=== PATIENT | male | born 1960 | race Caucasian/White ===

== ENCOUNTER 2018-07-29 20:36 | Emergency (ER) | payer OTHER ==
[2018-07-29] MEDS ORDERED: MORPHINE 4 MG/ML SYR ONE ×2 (21:09→22:18)
[2018-07-29] MEDS ORDERED: ONDANSETRON 4 MG/2 ML VIAL ONE (21:09)
[2018-07-29 21:23] LABS: Absolute Lymphocytes (CBC) 0.4 K/uL (0.7-4.9); Absolute Monocytes 0.6 K/uL (0.1-1.3); Absolute Neutrophil 20.4 K/uL (1.8-8.0); Basophils % 0.3 % (0-1.3); MPV 9.3 fL (7.6-11.3); Monocytes % 2.7 % (3.3-12.3); RBC Red Blood Cell Count 5.96 M/uL (4.33-5.43)
[2018-07-29 21:25] LABS: Protime INR 1.58
[2018-07-29 21:37] LABS: Albumin 2.3 g/dL (3.4-5.0); Bilirubin Direct 2.2 mg/dL (0-0.2); Bilirubin Total 3.4 mg/dL (0.2-1.0); Potassium 3.7 mmol/L (3.5-5.1); Protein, Total 7.4 g/dL (6.4-8.2)
[2018-07-29 21:58] LABS: Blood Morphology Comment NOT SEEN (NOT SEEN); Platelet Estimate ADEQ
--- NOTE | 2018-07-29 22:43 | EDPHYS ---
Physician Documentation [facility] Name: Onel Mancuso Age: 58 yrs Sex: Male : 1960 Arrival Date: 07/29/2018 Time: 20:37 Bed 6 Private MD: ED Physician Gino Scott HPI: 07/29 21:15 This 58 yrs old Male presents to ER via EMS with complaints of Abdominal pm1 Distention, Abdominal Pain. 21:15 The patient presents with abdominal pain that is diffuse, abdominal distention that is pm1 diffuse. Onset: The symptoms/episode began/occurred 1.5 week(s) ago. The symptoms do not radiate. Associated signs and symptoms: Pertinent negatives: nausea, vomiting, and diarrhea, chest pain, dysuria, fever, shortness of breath. The symptoms are described as achy, constant. Modifying factors: The symptoms are alleviated by nothing, the symptoms are aggravated by nothing. Severity of pain: in the emergency department the pain is actually worse. 21:15 The patient has been recently seen by a physician: with similar presenting complaints, pm1 and apparently given a diagnosis of Liver cirrhosis for the the first time, at [facility] ER with CT scan. Historical: - Allergies: 20:42 No Known Allergies; tl2 - Home Meds: 20:42 Tramadol Oral [Active]; tl2 - PMHx: 20:42 Cirrhosis; tl2 - PSHx: 20:42 None; tl2 - Immunization history:: Adult Immunizations up to date. - Social history:: Smoking status: Patient uses tobacco products, denies chronic smoking, but will smoke occasionally. - Ebola Screening: : No symptoms or risks identified at this time. ROS: 21:15 Constitutional: Negative for fever, chills, and weight loss, Eyes: Negative for injury, pm1 pain, redness, and discharge, ENT: Negative for injury, pain, and discharge, Neck: Negative for injury, pain, and swelling, Cardiovascular: Negative for chest pain, palpitations, and edema, Respiratory: Negative for shortness of breath, cough, wheezing, and pleuritic chest pain. 21:15 Back: Negative for injury and pain, : Negative for injury, bleeding, discharge, and swelling, MS/Extremity: Negative for injury and deformity, Skin: Negative for injury, rash, and discoloration, Neuro: Negative for headache, weakness, numbness, tingling, and seizure. 21:15 Abdomen/GI: Positive for abdominal pain, of the abdomen diffusely, Negative for nausea, vomiting, and diarrhea. Exam: 21:15 Constitutional: This is a well developed, well nourished patient who is awake, alert, pm1 and in no acute distress. Head/Face: Normocephalic, atraumatic. Eyes: Pupils equal round and reactive to light, extra-ocular motions intact. Lids and lashes normal. Conjunctiva and sclera are non-icteric and not injected. Cornea within normal limits. Periorbital areas with no swelling, redness, or edema. ENT: Nares patent. No nasal discharge, no septal abnormalities noted. Tympanic membranes are normal and external auditory canals are clear. Oropharynx with no redness, swelling, or masses, exudates, or evidence of obstruction, uvula midline. Mucous membranes moist. Neck: Trachea midline, no thyromegaly or masses palpated, and no cervical lymphadenopathy. Supple, full range of motion without nuchal rigidity, or vertebral point tenderness. No Meningismus. Chest/axilla: Normal chest wall appearance and motion. Nontender with no deformity. No lesions are appreciated. Cardiovascular: Regular rate and rhythm with a normal S1 and S2. No gallops, murmurs, or rubs. Normal PMI, no JVD. No pulse deficits. Respiratory: Lungs have equal breath sounds bilaterally, clear to auscultation and percussion. No rales, rhonchi or wheezes noted. No increased work of breathing, no retractions or nasal flaring. 21:15 Back: No spinal tenderness. No costovertebral tenderness. Full range of motion. Skin: Warm, dry with normal turgor. Normal color with no rashes, no lesions, and no evidence of cellulitis. MS/ Extremity: Pulses equal, no cyanosis. Neurovascular intact. Full, normal range of motion. 21:15 Skin: Warm, dry with normal turgor. Normal color with no rashes, no lesions, and no evidence of cellulitis. Bruise present to right bicep 21:15 Abdomen/GI: Inspection: distension, in the abdomen diffusely, Palpation: soft, in all quadrants, mild abdominal tenderness, in the abdomen diffusely. 21:15 Neuro: Orientation: is normal, Mentation: is normal, Motor: moves all fours. Vital Signs: 20:42 BP 161 / 129; Pulse 117; Resp 26; Temp 97.7(O); Pulse Ox 94% on R/A; Weight 108.86 kg; tl2 Height 6 ft. 0 in. (182.88 cm); Pain 9/10; 22:00 BP 129 / 92; Pulse 109; Resp 20; Pulse Ox 93% on R/A; aj1 22:06 BP 142 / 106; Pulse 112; Resp 24; Pulse Ox 95% on R/A; mt 23:30 BP 164 / 97; Pulse 109; Resp 20; Pulse Ox 92% on R/A; tl2 07/30 01:15 BP 169 / 99; Pulse 102; Resp 20; Pulse Ox 91% on R/A; tl2 07/29 20:42 Body Mass Index 32.55 (108.86 kg, 182.88 cm) tl2 MDM: 07/29 20:43 Patient medically screened. pm1 22:30 Counseling: I had a detailed discussion with the patient and/or guardian regarding: the pm1 historical points, exam findings, and any diagnostic results supporting the discharge/admit diagnosis, lab results, radiology results, the need for further work-up and treatment in the hospital. 22:36 Physician consultation: Luis Armando Erazo MD was called at 22:37, was contacted at 22:37, pm1 regarding consult, patient's condition, after a discussion of the case, a recommendation for transfer for higher level of care is made, Request transfer due to multiple comorbidity and illnesses present, lack of ICU bed, liver specialist to address liver mass. 22:54 Physician consultation: MD Surgeon Herrera was contacted at 22:50, regarding consult, pm1 patient's condition, and will see patient. 23:04 Physician consultation: MD Strickland was contacted at 23:05, regarding regarding transfer, pm1 patient's condition, and will see patient Request additional 1 liter NS. 23:23 Data reviewed: vital signs. Data interpreted: Pulse oximetry: on room air is 95 %. pm1 Interpretation: normal. 07/29 20:45 Order name: Basic Metabolic Panel pm1 07/29 20:45 Order name: CBC with Diff pm1 07/29 20:45 Order name: Creatinine for Radiology pm1 07/29 20:45 Order name: Hepatic Function pm1 07/29 20:45 Order name: Lipase pm07/29 20:45 Order name: ETOH Level pm07/29 20:47 Order name: PT-INR pm07/29 21:26 Order name: CBC with Automated Diff; Complete Time: 22:06 EDMS 07/29 21:26 Order name: Protime (+INR); Complete Time: 21:29 EDMS 07/29 21:36 Order name: Creatinine (Radiology Only); Complete Time: 21:38 EDMS 07/29 21:38 Order name: Basic Metabolic Panel; Complete Time: 21:39 EDMS 07/29 21:38 Order name: Liver (Hepatic) Function; Complete Time: 21:39 EDMS 07/29 21:38 Order name: Lipase; Complete Time: 21:39 EDMS 07/29 21:45 Order name: Alcohol Serum/Plasma; Complete Time: 21:50 EDMS 07/29 20:47 Order name: CT Abd/Pelvis - W/Contrast: IV contrast only pm07/29 21:59 Order name: Manual Differential; Complete Time: 22:06 EDMS 07/29 22:07 Order name: Blood Culture Adult (2) pm1 07/29 22:20 Order name: Type And Screen pm07/29 22:21 Order name: EKG; Complete Time: 22:21 pm07/29 23:13 Order name: Procalcitonin pm07/29 23:53 Order name: Procalcitonin EDMS 07/30 00:14 Order name: ABO/RH no charge EDMS 07/30 00:18 Order name: Type and Screen EDIL 07/29 20:45 Order name: IV Saline Lock; Complete Time: 20:46 pm1 07/29 20:45 Order name: Labs collected and sent; Complete Time: 20:46 pm07/29 22:21 Order name: EKG - Nurse/Tech; Complete Time: 22:34 pm1 Administered Medications: 21:06 Drug: morphine 4 mg Route: IVP; Site: right upper arm; aj1 22:00 Follow up: Response: Pain is unchanged, physician notified aj1 21:06 Drug: Zofran 4 mg Route: IVP; Site: right upper arm; aj1 22:00 Follow up: Response: No adverse reaction aj1 22:10 Drug: morphine 4 mg Route: IVP; Site: right upper arm; aj1 22:59 Follow up: Response: No adverse reaction aj1 23:35 Drug: Zosyn 3.375 grams Route: IVPB; Infused Over: 60 mins; Site: right upper arm; tl2 07/30 00:30 Follow up: IV Status: Completed infusion tl2 07/29 23:36 Drug: NS 0.9% 1000 ml Route: IV; Rate: 1000 ml; Site: left upper arm; tl2 07/30 01:00 Follow up: IV Status: Completed infusion; IV Intake: 1000ml tl2 07/29 23:36 Drug: NS 0.9% 1000 ml Route: IV; Rate: 1000 ml; Site: left upper arm; tl2 07/30 01:00 Follow up: IV Status: Completed infusion; IV Intake: 1000ml tl2 :20 Drug: NS 0.9% 1000 ml Route: IV; Rate: 125 ml/hr; Site: right upper arm; tl2 02:20 Follow up: IV Status: Infusion continued upon transfer tl2 Disposition: 03:37 Co-signature as Attending Physician, Gino Scott MD. Disposition: 07/29/18 22:[address] [facility]. Diagnosis are Small bowel perforation, Pneumonia, unspecified organism, Liver mass. - Reason for transfer: Higher level of care. - Accepting physician is [facility]. - Condition is Stable. - Problem is new. - Symptoms have improved. Signatures: Dispatcher [employer] Emma Warren RN RN aj1 Federico Salmeron NP LACE SEWER pm1 Lexie Scott RN RN tl2 Gino Scott MD MD Corrections: (The following items were deleted from the chart) 02:29 07/29 22:42 07/29/2018 22:[address] [facility]. tl2 Diagnosis is Small bowel perforationPneumonia, unspecified organism; Liver mass. Reason for transfer: Higher level of care. Accepting physician is [facility]. Condition is Stable. Problem is new. Symptoms have improved. pm1
--- NOTE | 2018-07-29 22:43 | ER ---
Nurse's Notes [facility] Name: Onel Mancuso Age: 58 yrs Sex: Male : 1960 Arrival Date: 07/29/2018 Time: 20:37 Bed 6 Private MD: Diagnosis: Pneumonia, unspecified organism;Small bowel perforation;Liver mass Presentation: 07/29 20:37 Presenting complaint: Patient states: Newly diagnosed with liver cirrhosis last week, tl2 pt c/o severe abdominal pain and distention for 1.5 weeks. Pt appears jaundiced. Pt is currently trying to make an appointment to get to the [place]. Transition of care: patient was not received from another setting of care. Onset of symptoms was July 22, 2018. Risk Assessment: Do you want to hurt yourself or someone else? Patient reports no desire to harm self or others. Initial Sepsis Screen: Does the patient meet any 2 criteria? HR > 90 bpm. Does the patient have a suspected source of infection? No. Patient's initial sepsis screen is negative. Care prior to arrival: Medication(s) given: 5 mg Morphine IM. 20:37 Method Of Arrival: EMS: [facility] tl2 20:37 Acuity: DANIKA 2 aj1 Triage Assessment: 20:42 General: Appears in no apparent distress. uncomfortable, Behavior is calm, cooperative, tl2 appropriate for age. Pain: Complains of pain in abdomen. Neuro: Level of Consciousness is awake, alert, obeys commands, Oriented to person, place, time, situation. Cardiovascular: Denies chest pain. Respiratory: Airway is patent Respiratory effort is even, unlabored, Respiratory pattern is regular, symmetrical. GI: Abdomen is distended, noted to have ascites. Derm: Skin is jaundiced. Historical: - Allergies: 20:42 No Known Allergies; tl2 - Home Meds: 20:42 Tramadol Oral [Active]; tl2 - PMHx: 20:42 Cirrhosis; tl2 - PSHx: 20:42 None; tl2 - Immunization history:: Adult Immunizations up to date. - Social history:: Smoking status: Patient uses tobacco products, denies chronic smoking, but will smoke occasionally. - Ebola Screening: : No symptoms or risks identified at this time. Screenin:44 Abuse screen: Denies threats or abuse. Nutritional screening: No deficits noted. tl2 Tuberculosis screening: No symptoms or risk factors identified. Fall Risk IV access (20 points). Assessment: 20:45 General: Appears in no apparent distress. uncomfortable, Behavior is cooperative, aj1 restless. Pain: Complains of pain in abdomen Pain does not radiate. Pain currently is 10 out of 10 on a pain scale. Neuro: Level of Consciousness is awake, alert, obeys commands, Oriented to person, place, time, situation. Cardiovascular: Patient's skin is warm and dry. Rhythm is sinus tachycardia. Respiratory: Airway is patent Respiratory effort is even, unlabored, Respiratory pattern is regular, symmetrical. GI: Abdomen is round distended, Bowel sounds present X 4 quads. Abdomen is tender to palpation X 4 quads. Abd is rigid X 4 quads. Reports lower abdominal pain, upper abdominal pain. : No signs and/or symptoms were reported regarding the genitourinary system. EENT: No signs and/or symptoms were reported regarding the EENT system. Derm: Skin is jaundiced. Musculoskeletal: No signs and/or symptoms reported regarding the musculoskeletal system. Circulation, motion, and sensation intact. 21:45 Reassessment: Patient appears in no apparent distress at this time. No changes from aj1 previously documented assessment. Patient and/or family updated on plan of care and expected duration. Pain level reassessed. Patient is alert, oriented x 3, equal unlabored respirations, skin warm/dry/pink. 22:00 Reassessment: Patient states that he is still in a lot of pain. Notified nya Ramírez RAYON CONER. Order received. 22:11 Reassessment: Patient is 91% on room air, patient placed on O2 \T\ 2 L per nc. aj1 22:50 Reassessment: will administer antibiotic after obtaining blood cultures. Will attempt tl2 to place a second IV. 07/30 00:00 Reassessment: Patient appears in no apparent distress at this time. Patient and/or tl2 family updated on plan of care and expected duration. Pain level reassessed. Patient is alert, oriented x 3, equal unlabored respirations, skin warm/dry/pink. 01:00 Reassessment: Patient appears in no apparent distress at this time. Patient and/or tl2 family updated on plan of care and expected duration. Pain level reassessed. Patient is alert, oriented x 3, equal unlabored respirations, skin warm/dry/pink. awaiting transport. 02:27 Reassessment: MD ordered to give pt morphine/zofran before transfer. tl2 Vital Signs: 07/29 20:42 BP 161 / 129; Pulse 117; Resp 26; Temp 97.7(O); Pulse Ox 94% on R/A; Weight 108.86 kg; tl2 Height 6 ft. 0 in. (182.88 cm); Pain 9/10; 22:00 BP 129 / 92; Pulse 109; Resp 20; Pulse Ox 93% on R/A; aj1 22:06 BP 142 / 106; Pulse 112; Resp 24; Pulse Ox 95% on R/A; mt 23:30 BP 164 / 97; Pulse 109; Resp 20; Pulse Ox 92% on R/A; tl2 07/30 01:15 BP 169 / 99; Pulse 102; Resp 20; Pulse Ox 91% on R/A; tl2 07/29 20:42 Body Mass Index 32.55 (108.86 kg, 182.88 cm) tl2 ED Course: 07/29 20:37 Patient arrived in ED. tl2 20:39 Federico Salmeron NP is PHCP. pm1 20:39 Gino Scott MD is Attending Physician. pm1 20:40 Triage completed. tl2 20:42 Arm band placed on right wrist. tl2 20:44 Patient has correct armband on for positive identification. Placed in gown. Bed in low tl2 position. Call light in reach. Side rails up X 1. 20:45 hall monitor on. Pulse ox on. NIBP on. aj1 20:45 No provider procedures requiring assistance completed. aj1 20:49 Radiology exam delayed due to lab results not completed at this time. (BUN/Creatinine). vm2 20:49 Inserted saline lock: 22 gauge in right upper arm, using aseptic technique. Blood tl2 collected. placed by DAVID Carter. 21:05 Emma Petit RN is Primary Nurse. aj1 21:15 Radiology exam delayed due to lab results not completed at this time. (BUN/Creatinine). vm2 21:[address] vm2 21:49 CT completed. Patient tolerated procedure well. Patient moved back from CT. nj 21:58 Notified Nurse Practitioner and/or Physician Operations Engineer of a critical lab result(s), fc band count of 16%. 23:00 Inserted saline lock: 22 gauge in left upper arm, using aseptic technique. lp1 07/30 02:27 Patient transferred, IV remains in place. tl2 Administered Medications: 07/29 21:06 Drug: morphine 4 mg Route: IVP; Site: right upper arm; aj1 22:00 Follow up: Response: Pain is unchanged, physician notified aj1 21:06 Drug: Zofran 4 mg Route: IVP; Site: right upper arm; aj1 22:00 Follow up: Response: No adverse reaction aj1 22:10 Drug: morphine 4 mg Route: IVP; Site: right upper arm; aj1 22:59 Follow up: Response: No adverse reaction aj1 23:35 Drug: Zosyn 3.375 grams Route: IVPB; Infused Over: 60 mins; Site: right upper arm; tl2 07/30 00:30 Follow up: IV Status: Completed infusion tl2 07/29 23:36 Drug: NS 0.9% 1000 ml Route: IV; Rate: 1000 ml; Site: left upper arm; tl2 07/30 01:00 Follow up: IV Status: Completed infusion; IV Intake: 1000ml tl2 07/29 23:36 Drug: NS 0.9% 1000 ml Route: IV; Rate: 1000 ml; Site: left upper arm; tl2 07/30 01:00 Follow up: IV Status: Completed infusion; IV Intake: 1000ml tl2 02:20 Drug: NS 0.9% 1000 ml Route: IV; Rate: 125 ml/hr; Site: right upper arm; tl2 02:20 Follow up: IV Status: Infusion continued upon transfer tl2 Intake: 01:00 IV: 1000ml; Total: 1000ml. tl2 01:00 IV: 1000ml; Total: 2000ml. tl2 Outcome: 07/29 22:42 ER care complete, transfer ordered by . pm1 07/30 02:27 Transferred by ground EMS to [facility], Transfer form completed. tl2 Condition: stable Discharge instructions given to patient, Instructed on the need for transfer. 02:29 Patient left the ED. tl2 Signatures: Emma Petit RN RN [facility] Belkis Tillman RN RN Sugar Alcaraz RN RN lp1 Federico Salmeron, RAYON CONER RAYON CONER pm1 Lexie Scott RN RN tl2 Hao Naik [facility] Evita Harley mt Corrections: (The following items were deleted from the chart) 07/29 22:47 20:37 Acuity: DANIKA 3 tl2 aj1 07/30 01:16 01:15 BP 164 / 97; Pulse 109bpm; Resp 20bpm; Pulse Ox 92% RA; tl2 tl2
[2018-07-29] MEDS ORDERED: PIPER/TAZO/NS 3.375gm 3.375 GM/100 ML BAG ONE (23:13)
[2018-07-29] MEDS ORDERED: NA CHLORIDE 0.9% 2,000 ML ONE (23:27)
[2018-07-30] MEDS ORDERED: NA CHLORIDE 0.9% 1,000 ML ONE (02:16)
[2018-07-30] MEDS ORDERED: MORPHINE 4 MG/ML SYR ONE (02:33)
[2018-07-30] MEDS ORDERED: ONDANSETRON 4 MG/2 ML VIAL ONE (02:34)
--- NOTE | 2018-07-30 08:54 | EKG ---
Test Date: 2018-07-29 Test Time: 22:31:51 Poultry Killer: NEETU MEASUREMENT RESULTS: Intervals: Rate: 110 NH: 154 QRSD: 110 QT: 370 QTc: 500 Bowie: P: 60 NH: 154 QRS: -58 T: 63 INTERPRETIVE STATEMENTS: Sinus tachycardia Incomplete right bundle branch block Left anterior fascicular block Possible Anterior infarct, age undetermined Abnormal ECG No previous ECG available for comparison Electronically Signed On 07-30-18 08:53:14 SYSTEMS MANAGER by Harley Conley
--- NOTE | 2018-08-01 09:39 | RAD REPORT ---
EXAM DESCRIPTION: DENISHA GAN [id number] - Abdomen Pelvis Wo Contrast CLINICAL HISTORY: The patient is 58 years old and is Male; ABD PAIN TECHNIQUE: Axial computed tomography images of the abdomen and pelvis without intravenous contrast. Sagittal and coronal reformatted images were created and reviewed. This CT exam was performed usi ng one or more of the following dose reduction techniques: automated exposure control, adjustment o f the mA and/or kV according to patient size, and/or use of iterative reconstruction technique. COMPARISON: None. FINDINGS: LUNG BASES: Small area of consolidation is seen in the right lower lobe laterally. HEART: Coronary artery calcifications. No cardiomegaly. ABDOMEN: LIVER: Hepatic cirrhosis with upper abdominal ascites. Subtle ill-defined hypodense area in the infer ior aspect of the right hepatic lobe measuring 4.6 x 5.5 cm (series 2 one, image 28). GALLBLADDER AND BILE DUCTS: Unremarkable. No calcified stones. No ductal dilation. PANCREAS: Unremarkable. No ductal dilation. SPLEEN: The spleen is normal in size measuring 12.6 cm. ADRENALS: Unremarkable. No mass. KIDNEYS AND URETERS: Unremarkable. No obstructing stones. No hydronephrosis. STOMACH AND BOWEL: Unremarkable. No obstruction. No mucosal thickening. PELVIS: APPENDIX: The appendix is seen and is within normal limits BLADDER: Unremarkable. No stones. REPRODUCTIVE: Unremarkable as visualized. ABDOMEN and PELVIS: INTRAPERITONEAL SPACE: Thickening and distention of the gallbladder, nonspecific in the setting of as cites. Moderate amount of pneumoperitoneum is present. Additionally, there is thickening of multiple small b owel loops in the lower mid abdomen. Diffuse haziness of the mesentery. BONES/JOINTS: Postsurgical changes of the left hip. No acute fracture. No dislocation. SOFT TISSUES: Bilateral fat-containing inguinal hernias. VASCULATURE: Unremarkable. No abdominal aortic aneurysm. LYMPH NODES: Unremarkable. No enlarged lymph nodes. IMPRESSION: 1. Wall thickening of multiple small bowel loops with scattered [id number] pneum operitoneum. Finding concerning for small bowel perforation in the correct clinical setting. Multiple distended and thickened small bowel loops in the upper abdominal midline. 2. Hepatic cirrhosis with incompletely characterized ill-defined 5.5 cm hypodensity in the right he patic lobe. Finding concerning for HCC considering advanced chronic liver disease. CT or MRI liver ma ss protocol is recommended for further characterization. 3. Small consolidation in the right lower lobe concerning for pneumonia. 4. Thickening and distention of the gallbladder, nonspecific in the setting of ascites. THIS REPORT CONTAINS FINDINGS THAT MAY BE CRITICAL TO PATIENT'S CARE: The findings were verbally discussed via telephone conference with Dr. Salmeron by Dr. Chandler on 07/09 10:17 PM AFTERSCHO[employer]. The results were acknowledged and understood. Electronically signed by: Karlos Chandler DO 07/29/2018 10:20 PM [employer]OL Due to temporary technical issues with the PACS/Fluency reporting system, reports are being signed by the in house radiologist as a courtesy to ensure prompt reporting. The interpreting radiologist is f ully responsible for the content of the report.
== END 2018-07-30 02:29 | disposition short-term general hospital (02) ==
LOC: ER 20:36
DX: K63.1 Perforation of intestine (nontraumatic) (principal); J18.9 Pneumonia, unspecified organism; K76.9 Liver disease, unspecified; I45.2 Bifascicular block; K74.60 Unspecified cirrhosis of liver; Z72.0 Tobacco use
CPT/HCPCS: 36415; 74176; 80048; 80076; 80320; 83690; 84145; 85025; 85610; 86850; 86900; 86901; 87040; 87205; 93005; 96365; 96375; 99285; J2405; J2543; J7030

== ENCOUNTER 2018-08-15 13:43 | Emergency (ER) | payer OTHER ==
--- OUTSIDE RECORDS SUMMARY | 2018-08-15 13:48 | XMS REPORT | Clinical Summary ---
:1960 Author Organization [facility] Address [address] [place] [address] Care Team Providers Name Role Phone Unavailable Primary Care Provider Unavailable Allergies No Known Allergies Medications Medication Sig Dispensed Refills Start Date End Date Status amLODIPine (NORVASC) 5 Take 1 tablet 30 tablet 2 08/12/2018 11/10/2018 Active MG tablet (5 mg total) by mouth daily for 90 days. carvedilol (COREG) 12.5 Take 1 tablet 60 tablet 2 08/11/2018 11/09/2018 Active MG tablet (12.5 mg total) by mouth 2 (two) times daily for 90 days. folic acid (FOLVITE) 1 Take 1 tablet 30 tablet 2 08/12/2018 11/10/2018 Active MG tablet (1 mg total) by mouth daily for 90 days. furosemide (LASIX) 40 Take 1 tablet 30 tablet 2 08/12/2018 11/10/2018 Active MG tablet (40 mg total) by mouth daily for 90 days. lactulose (CHRONULAC) Take 30 mLs (20 900 mL 2 08/12/2018 11/10/2018 Active 20 gram/30 mL solution g total) by mouth daily for 90 days. multivitamin Take 1 tablet 30 tablet 2 08/12/2018 11/10/2018 Active (THERAGRAN) tablet by mouth daily for 90 days. spironolactone Take 1 tablet 30 tablet 2 08/12/2018 11/10/2018 Active (ALDACTONE) 25 MG (25 mg total) tablet by mouth daily for 90 days. thiamine 100 MG tablet Take 1 tablet 30 tablet 2 08/12/2018 11/10/2018 Active (100 mg total) by mouth daily for 90 days. Active Problems Problem Noted Date Hepatocellular carcinoma 08/11/2018 Ventricular tachycardia 08/01/2018 HCV (hepatitis C virus) 07/30/2018 Alcoholic cirrhosis of liver with ascites 07/30/2018 Small bowel obstruction 07/30/2018 Former smoker 07/30/2018 Alcohol dependence 07/30/2018 Acute abdominal pain 07/30/2018 Pneumoperitoneum 07/30/2018 Severe sepsis 07/30/2018 ARF (acute renal failure) 07/30/2018 SB perforation s/b SBR (jejunal) w/ primary anastamosis 07/30/2018 Encounters Date Type Specialty Care Team Description 08/07/2018 Travel 07/30/2018 Anesthesia Event Jeffrey Renteria MD 07/30/2018 Surgery Anjel Moya, LAPAROTOMY,EXPLORATORY 07/30/2018 - Hospital Encounter General Internal Subhash Strickland Acute abdominal pain (Primary Dx); 08/11/2018 Medicine MD Yehuda Severe sepsis (HCC); Anjel Moya, Alcoholic cirrhosis of liver with ascites (HCC); Hepatitis C virus infection without hepatic coma, unspecified chronicity; Shiekh Small bowel obstruction (HCC); Kylie Garay Small bowel perforation (HCC); MD Maria Luisa ARCHANA (acute kidney injury) (HCC); Mild malnutrition (HCC); Acute renal failure, unspecified acute renal failure type (HCC); Pneumoperitoneum; Escherichia coli (E. coli) infection; Hepatocellular carcinoma (HCC) 07/30/2018 Orders Only General Internal Medicine after 08/14/2017 Social History Tobacco Use Types Packs/Day Years Used Date Former Smoker Alcohol Use Drinks/Week oz/Week Comments Yes 1/2 gallon Vivek Beam daily x 3Y (Quit ~ 07/23/2018) Alcohol Habits Answer Date Recorded How often do you have a drink containing 4 or more times a week 07/30/2018 alcohol? How many drinks containing alcohol do you have Not asked on a typical day when you are drinking? How often do you have six or more drinks on one Not asked occasion? Sex Assigned at Date Recorded Not on file Job Start Date Occupation Industry Not on file Not on file Not on file Travel History Travel Start Travel End No recent travel history available. Last Filed Vital Signs Vital Sign Reading Time Taken Blood Pressure 157/83 08/11/2018 3:45 PM [employer] Pulse 67 08/11/2018 3:45 PM [employer] Temperature 36.8 C (98.3 F) 08/11/2018 3:45 PM [employer] Respiratory Rate 20 08/11/2018 3:45 PM [employer] Oxygen Saturation 98% 08/11/2018 3:45 PM [employer] Inhaled Oxygen Concentration 40% 07/31/2018 11:00 AM [employer] Weight 114.5 kg (252 lb 6.8 oz) 08/11/2018 6:00 AM [employer] Height 182.9 cm (6') 07/30/2018 2:15 PM [employer] Body Mass Index 34.24 08/11/2018 6:00 AM [employer] Plan of Treatment Not on file Procedures Procedure Name Priority Date/Time Associated Comments Diagnosis REPORT OF PROCEDURE - 08/15/2018 10:52 ENDOSCOPY SCAN AM CDT RHYTHM STRIP - SCAN 08/15/2018 10:52 AM CDT POCT-GLUCOSE METER Routine 08/11/2018 3:48 Results for this PM [employer] procedure are in the results section. POCT-GLUCOSE METER Routine 08/11/2018 9:13 Results for this AM [employer] procedure are in the results section. CBC W/PLT COUNT & AUTO Routine 08/11/2018 5:04 Results for this DIFFERENTIAL AM [employer] procedure are in the results section. CBC W/PLT COUNT & AUTO Routine 08/11/2018 5:04 Results for this DIFFERENTIAL AM [employer] procedure are in the results section. PT/APTT Routine 08/11/2018 5:04 Results for this AM [employer] procedure are in the results section. BILIRUBIN, DIRECT Routine 08/11/2018 5:04 Results for this AM [employer] procedure are in the results section. COMPREHENSIVE METABOLIC Routine 08/11/2018 5:04 Results for this PANEL AM [employer] procedure are in the results section. MAGNESIUM Routine 08/11/2018 5:04 Results for this AM [employer] procedure are in the results section. CALCIUM, IONIZED Routine 08/11/2018 5:04 Results for this AM [employer] procedure are in the results section. PHOSPHORUS Routine 08/11/2018 5:04 Results for this AM [employer] procedure are in the results section. POCT-GLUCOSE METER Routine 08/10/2018 9:54 Results for this PM [employer] procedure are in the results section. POCT-GLUCOSE METER Routine 08/10/2018 4:22 Results for this PM [employer] procedure are in the results section. US PARACENTESIS Routine 08/10/2018 3:30 Results for this PM [employer] procedure are in the results section. BODY FLUID CELL COUNT Routine 08/10/2018 3:29 Results for this WITH DIFFERENTIAL PM [employer] procedure are in the results section. BODY FLUID CULTURE + Routine 08/10/2018 3:28 Results for this GRAM STAIN PM [employer] procedure are in the results section. POCT-GLUCOSE METER Routine 08/10/2018 9:14 Results for this AM [employer] procedure are in the results section. CBC W/PLT COUNT & AUTO Routine 08/10/2018 5:21 Results for this DIFFERENTIAL AM [employer] procedure are in the results section. CBC W/PLT COUNT & AUTO Routine 08/10/2018 5:21 Results for this DIFFERENTIAL AM [employer] procedure are in the results section. PT/APTT Routine 08/10/2018 5:21 Results for this AM [employer] procedure are in the results section. BILIRUBIN, DIRECT Routine 08/10/2018 5:21 Results for this AM [employer] procedure are in the results section. COMPREHENSIVE METABOLIC Routine 08/10/2018 5:21 Results for this PANEL AM [employer] procedure are in the results section. MAGNESIUM Routine 08/10/2018 5:21 Results for this AM [employer] procedure are in the results section. CALCIUM, IONIZED Routine 08/10/2018 5:21 Results for this AM [employer] procedure are in the results section. PHOSPHORUS Routine 08/10/2018 5:21 Results for this AM [employer] procedure are in the results section. POCT-GLUCOSE METER Routine 08/09/2018 9:57 Results for this PM [employer] procedure are in the results section. POCT-GLUCOSE METER Routine 08/09/2018 6:34 Results for this PM [employer] procedure are in the results section. MAGNESIUM Routine 08/09/2018 5:08 Results for this PM [employer] procedure are in the results section. NM BONE SCAN WHOLE BODY Routine 08/09/2018 3:36 Results for this PM [employer] procedure are in the results section. POCT-GLUCOSE METER Routine 08/09/2018 11:58 Results for this AM [employer] procedure are in the results section. POCT-GLUCOSE METER Routine 08/09/2018 8:04 Results for this AM [employer] procedure are in the results section. CBC W/PLT COUNT & AUTO Routine 08/09/2018 3:19 Results for this DIFFERENTIAL AM [employer] procedure are in the results section. CBC W/PLT COUNT & AUTO Routine 08/09/2018 3:19 Results for this DIFFERENTIAL AM [employer] procedure are in the results section. PT/APTT Routine 08/09/2018 3:19 Results for this AM [employer] procedure are in the results section. BILIRUBIN, DIRECT Routine 08/09/2018 3:19 Results for this AM [employer] procedure are in the results section. COMPREHENSIVE METABOLIC Routine 08/09/2018 3:19 Results for this PANEL AM [employer] procedure are in the results section. MAGNESIUM Routine 08/09/2018 3:19 Results for this AM [employer] procedure are in the results section. CALCIUM, IONIZED Routine 08/09/2018 3:19 Results for this AM [employer] procedure are in the results section. PHOSPHORUS Routine 08/09/2018 3:19 Results for this AM [employer] procedure are in the results section. POCT-GLUCOSE METER Routine 08/08/2018 9:26 Results for this PM [employer] procedure are in the results section. POCT-GLUCOSE METER Routine 08/08/2018 6:48 Results for this PM [employer] procedure are in the results section. CT CHEST WITHOUT IV Routine 08/08/2018 5:45 Results for this CONTRAST PM [employer] procedure are in the results section. MAGNESIUM Routine 08/08/2018 3:15 Results for this PM [employer] procedure are in the results section. POCT-GLUCOSE METER Routine 08/08/2018 11:52 Results for this AM [employer] procedure are in the results section. POCT-GLUCOSE METER Routine 08/08/2018 8:46 Results for this AM [employer] procedure are in the results section. CBC W/PLT COUNT & AUTO Routine 08/08/2018 3:13 Results for this DIFFERENTIAL AM [employer] procedure are in the results section. CBC W/PLT COUNT & AUTO Routine 08/08/2018 3:13 Results for this DIFFERENTIAL AM [employer] procedure are in the results section. PT/APTT Routine 08/08/2018 3:13 Results for this AM [employer] procedure are in the results section. BILIRUBIN, DIRECT Routine 08/08/2018 3:13 Results for this AM [employer] procedure are in the results section. COMPREHENSIVE METABOLIC Routine 08/08/2018 3:13 Results for this PANEL AM [employer] procedure are in the results section. MAGNESIUM Routine 08/08/2018 3:13 Results for this AM [employer] procedure are in the results section. CALCIUM, IONIZED Routine 08/08/2018 3:13 Results for this AM [employer] procedure are in the results section. PHOSPHORUS Routine 08/08/2018 3:13 Results for this AM [employer] procedure are in the results section. MAGNESIUM Routine 08/08/2018 3:13 Results for this AM [employer] procedure are in the results section. MR ABDOMEN WITH/WITHOUT Routine 08/08/2018 12:39 Results for this IV CONTRAST AM [employer] procedure are in the results section. POCT-GLUCOSE METER Routine 08/07/2018 9:58 Results for this PM [employer] procedure are in the results section. POCT-GLUCOSE METER Routine 08/07/2018 4:15 Results for this PM [employer] procedure are in the results section. POCT-GLUCOSE METER Routine 08/07/2018 12:54 Results for this PM [employer] procedure are in the results section. CBC W/PLT COUNT & AUTO Routine 08/07/2018 4:41 Results for this DIFFERENTIAL AM [employer] procedure are in the results section. TRIGLYCERIDES Routine 08/07/2018 4:41 Results for this AM [employer] procedure are in the results section. PREALBUMIN Routine 08/07/2018 4:41 Results for this AM [employer] procedure are in the results section. CBC W/PLT COUNT & AUTO Routine 08/07/2018 4:41 Results for this DIFFERENTIAL AM [employer] procedure are in the results section. PT/APTT Routine 08/07/2018 4:41 Results for this AM [employer] procedure are in the results section. BILIRUBIN, DIRECT Routine 08/07/2018 4:41 Results for this AM [employer] procedure are in the results section. COMPREHENSIVE METABOLIC Routine 08/07/2018 4:41 Results for this PANEL AM [employer] procedure are in the results section. MAGNESIUM Routine 08/07/2018 4:41 Results for this AM [employer] procedure are in the results section. CALCIUM, IONIZED Routine 08/07/2018 4:41 Results for this AM [employer] procedure are in the results section. PHOSPHORUS Routine 08/07/2018 4:41 Results for this AM [employer] procedure are in the results section. C-REACTIVE PROTEIN Routine 08/07/2018 4:41 Results for this AM [employer] procedure are in the results section. MAGNESIUM Routine 08/07/2018 4:41 Results for this AM [employer] procedure are in the results section. POCT-GLUCOSE METER Routine 08/06/2018 9:59 Results for this PM [employer] procedure are in the results section. POCT-GLUCOSE METER Routine 08/06/2018 3:24 Results for this PM [employer] procedure are in the results section. US PARACENTESIS Routine 08/06/2018 2:55 Results for this PM [employer] procedure are in the results section. BODY FLUID CELL COUNT Routine 08/06/2018 2:06 Results for this WITH DIFFERENTIAL PM [employer] procedure are in the results section. BODY FLUID CULTURE + Routine 08/06/2018 2:04 Results for this GRAM STAIN PM [employer] procedure are in the results section. PROTEIN, BODY FLUID Routine 08/06/2018 2:02 Results for this PM [employer] procedure are in the results section. ALBUMIN, BODY FLUID Routine 08/06/2018 2:02 Results for this PM [employer] procedure are in the results section. CYTOLOGY AP Routine 08/06/2018 2:00 Results for this PM [employer] procedure are in the results section. POCT-GLUCOSE METER Routine 08/06/2018 11:32 Results for this AM [employer] procedure are in the results section. POCT-GLUCOSE METER Routine 08/06/2018 7:46 Results for this AM [employer] procedure are in the results section. CALCIUM, IONIZED Routine 08/06/2018 4:36 Results for this AM [employer] procedure are in the results section. PT/APTT Routine 08/06/2018 4:33 Results for this AM [employer] procedure are in the results section. BILIRUBIN, DIRECT Routine 08/06/2018 4:33 Results for this AM [employer] procedure are in the results section. COMPREHENSIVE METABOLIC Routine 08/06/2018 4:33 Results for this PANEL AM [employer] procedure are in the results section. PHOSPHORUS Routine 08/06/2018 4:33 Results for this AM [employer] procedure are in the results section. MAGNESIUM Routine 08/06/2018 4:33 Results for this AM [employer] procedure are in the results section. CBC W/PLT COUNT & AUTO Routine 08/06/2018 4:32 Results for this DIFFERENTIAL AM [employer] procedure are in the results section. B-TYPE NATRIURETIC Routine 08/06/2018 4:32 Results for this FACTOR (BNP) AM [employer] procedure are in the results section. CBC W/PLT COUNT & AUTO Routine 08/06/2018 4:32 Results for this DIFFERENTIAL AM [employer] procedure are in the results section. POCT-GLUCOSE METER Routine 08/05/2018 9:43 Results for this PM [employer] procedure are in the results section. POCT-GLUCOSE METER Routine 08/05/2018 5:40 Results for this PM [employer] procedure are in the results section. POCT-GLUCOSE METER Routine 08/05/2018 11:26 Results for this AM [employer] procedure are in the results section. CALCIUM, IONIZED Routine 08/05/2018 5:59 Results for this AM [employer] procedure are in the results section. CBC W/PLT COUNT & AUTO Routine 08/05/2018 5:57 Results for this DIFFERENTIAL AM [employer] procedure are in the results section. CBC W/PLT COUNT & AUTO Routine 08/05/2018 5:57 Results for this DIFFERENTIAL AM [employer] procedure are in the results section. PT/APTT Routine 08/05/2018 5:57 Results for this AM [employer] procedure are in the results section. BILIRUBIN, DIRECT Routine 08/05/2018 5:57 Results for this AM [employer] procedure are in the results section. COMPREHENSIVE METABOLIC Routine 08/05/2018 5:57 Results for this PANEL AM [employer] procedure are in the results section. PHOSPHORUS Routine 08/05/2018 5:57 Results for this AM [employer] procedure are in the results section. MAGNESIUM Routine 08/05/2018 5:57 Results for this AM [employer] procedure are in the results section. POCT-GLUCOSE METER Routine 08/05/2018 5:05 Results for this AM [employer] procedure are in the results section. POCT-GLUCOSE METER Routine 08/04/2018 11:00 Results for this PM [employer] procedure are in the results section. POCT-GLUCOSE METER Routine 08/04/2018 5:09 Results for this PM [employer] procedure are in the results section. HEMOGLOBIN AND Routine 08/04/2018 3:53 Results for this HEMATOCRIT PM [employer] procedure are in the results section. MAGNESIUM Routine 08/04/2018 3:53 Results for this PM [employer] procedure are in the results section. POCT-GLUCOSE METER Routine 08/04/2018 1:16 Results for this PM [employer] procedure are in the results section. POCT-GLUCOSE METER Routine 08/04/2018 6:37 Results for this AM [employer] procedure are in the results section. CBC W/PLT COUNT & AUTO Routine 08/04/2018 3:27 Results for this DIFFERENTIAL AM [employer] procedure are in the results section. CBC W/PLT COUNT & AUTO Routine 08/04/2018 3:27 Results for this DIFFERENTIAL AM [employer] procedure are in the results section. PT/APTT Routine 08/04/2018 3:27 Results for this AM [employer] procedure are in the results section. BILIRUBIN, DIRECT Routine 08/04/2018 3:27 Results for this AM [employer] procedure are in the results section. COMPREHENSIVE METABOLIC Routine 08/04/2018 3:27 Results for this PANEL AM [employer] procedure are in the results section. MAGNESIUM Routine 08/04/2018 3:27 Results for this AM [employer] procedure are in the results section. CALCIUM, IONIZED Routine 08/04/2018 3:27 Results for this AM [employer] procedure are in the results section. PHOSPHORUS Routine 08/04/2018 3:27 Results for this AM [employer] procedure are in the results section. POCT-GLUCOSE METER Routine 08/04/2018 1:17 Results for this AM [employer] procedure are in the results section. POCT-GLUCOSE METER Routine 08/03/2018 5:02 Results for this PM [employer] procedure are in the results section. POCT-GLUCOSE METER Routine 08/03/2018 11:46 Results for this AM [employer] procedure are in the results section. XR CHEST 1 VIEW Routine 08/03/2018 8:12 Results for this PORTABLE/BEDSIDE AM [employer] procedure are in the results section. POCT-GLUCOSE METER Routine 08/03/2018 6:58 Results for this AM [employer] procedure are in the results section. CBC W/PLT COUNT & AUTO Routine 08/03/2018 4:29 Results for this DIFFERENTIAL AM [employer] procedure are in the results section. BASIC METABOLIC PANEL Routine 08/03/2018 4:29 Results for this (7) AM [employer] procedure are in the results section. HIV-1 ANTIGEN WITH Routine 08/03/2018 4:29 Results for this HIV-1/2 ANTIBODY AM [employer] procedure are in the results section. AMMONIA Routine 08/03/2018 4:29 Results for this AM [employer] procedure are in the results section. CBC W/PLT COUNT & AUTO Routine 08/03/2018 4:29 Results for this DIFFERENTIAL AM [employer] procedure are in the results section. PT/APTT Routine 08/03/2018 4:29 Results for this AM [employer] procedure are in the results section. BILIRUBIN, DIRECT Routine 08/03/2018 4:29 Results for this AM [employer] procedure are in the results section. COMPREHENSIVE METABOLIC Routine 08/03/2018 4:29 Results for this PANEL AM [employer] procedure are in the results section. MAGNESIUM Routine 08/03/2018 4:29 Results for this AM [employer] procedure are in the results section. CALCIUM, IONIZED Routine 08/03/2018 4:29 Results for this AM [employer] procedure are in the results section. PHOSPHORUS Routine 08/03/2018 4:29 Results for this AM [employer] procedure are in the results section. POCT-GLUCOSE METER Routine 08/02/2018 11:51 Results for this PM [employer] procedure are in the results section. POCT-GLUCOSE METER Routine 08/02/2018 6:01 Results for this PM [employer] procedure are in the results section. US PARACENTESIS Routine 08/02/2018 3:09 Results for this PM [employer] procedure are in the results section. BODY FLUID CULTURE + Routine 08/02/2018 3:09 Results for this GRAM STAIN PM [employer] procedure are in the results section. BODY FLUID CELL COUNT Routine 08/02/2018 3:09 Results for this WITH DIFFERENTIAL PM [employer] procedure are in the results section. POCT-GLUCOSE METER Routine 08/02/2018 12:38 Results for this PM [employer] procedure are in the results section. MAGNESIUM Routine 08/02/2018 12:38 Results for this PM [employer] procedure are in the results section. XR CHEST 1 VIEW Routine 08/02/2018 6:55 Results for this PORTABLE/BEDSIDE AM [employer] procedure are in the results section. POCT-GLUCOSE METER Routine 08/02/2018 6:14 Results for this AM [employer] procedure are in the results section. PT/APTT Routine 08/02/2018 5:34 Results for this AM [employer] procedure are in the results section. CALCIUM, IONIZED Routine 08/02/2018 5:34 Results for this AM [employer] procedure are in the results section. POCT-GLUCOSE METER Routine 08/02/2018 5:28 Results for this AM [employer] procedure are in the results section. URINALYSIS W/ Routine 08/02/2018 5:01 Results for this MICROSCOPIC AM [employer] procedure are in the results section. CREATININE, RANDOM URINE Routine 08/02/2018 5:01 Results for this AM [employer] procedure are in the results section. PROTEIN, RANDOM URINE Routine 08/02/2018 5:01 Results for this AM [employer] procedure are in the results section. DRUG SCREEN, URINE, Routine 08/02/2018 5:01 TRANSPLANT AM [employer] CBC W/PLT COUNT & AUTO Routine 08/02/2018 4:58 Results for this DIFFERENTIAL AM [employer] procedure are in the results section. BASIC METABOLIC PANEL Routine 08/02/2018 4:58 Results for this (7) AM [employer] procedure are in the results section. CREATINE KINASE (CK) Routine 08/02/2018 4:58 Results for this AM [employer] procedure are in the results section. B-TYPE NATRIURETIC Routine 08/02/2018 4:58 Results for this FACTOR (BNP) AM [employer] procedure are in the results section. CBC W/PLT COUNT & AUTO Routine 08/02/2018 4:58 Results for this DIFFERENTIAL AM [employer] procedure are in the results section. BILIRUBIN, DIRECT Routine 08/02/2018 4:58 Results for this AM [employer] procedure are in the results section. COMPREHENSIVE METABOLIC Routine 08/02/2018 4:58 Results for this PANEL AM [employer] procedure are in the results section. MAGNESIUM Routine 08/02/2018 4:58 Results for this AM [employer] procedure are in the results section. PHOSPHORUS Routine 08/02/2018 4:58 Results for this AM [employer] procedure are in the results section. POCT-GLUCOSE METER Routine 08/01/2018 5:33 Results for this PM [employer] procedure are in the results section. XR CHEST 1 VIEW STAT 08/01/2018 5:32 Results for this PORTABLE/BEDSIDE PM [employer] procedure are in the results section. BASIC METABOLIC PANEL Routine 08/01/2018 5:25 Results for this (7) PM [employer] procedure are in the results section. MAGNESIUM Routine 08/01/2018 5:25 Results for this PM [employer] procedure are in the results section. POCT-GLUCOSE METER Routine 08/01/2018 5:01 Results for this PM [employer] procedure are in the results section. POCT-GLUCOSE METER Routine 08/01/2018 11:26 Results for this AM [employer] procedure are in the results section. XR CHEST 1 VIEW Routine 08/01/2018 7:22 Results for this PORTABLE/BEDSIDE AM [employer] procedure are in the results section. POCT-GLUCOSE METER Routine 08/01/2018 6:25 Results for this AM [employer] procedure are in the results section. (CELLAVISION MANUAL Routine 08/01/2018 3:35 Results for this DIFF) AM [employer] procedure are in the results section. CBC W/PLT COUNT & AUTO Routine 08/01/2018 3:35 Results for this DIFFERENTIAL AM [employer] procedure are in the results section. LACTIC ACID, VENOUS, Routine 08/01/2018 3:35 Results for this WHOLE BLOOD AM [facility] HAND HELPER procedure are in the results section. SOLUBLE LIVER ANTIGEN Routine 08/01/2018 3:35 Results for this (SLA) AM [facility] procedure are in the results section. CBC W/PLT COUNT & AUTO Routine 08/01/2018 3:35 Results for this DIFFERENTIAL AM [facility] procedure are in the results section. PT/APTT Routine 08/01/2018 3:35 Results for this AM [facility] procedure are in the results section. BILIRUBIN, DIRECT Routine 08/01/2018 3:35 Results for this AM [facility] procedure are in the results section. COMPREHENSIVE METABOLIC Routine 08/01/2018 3:35 Results for this PANEL [facility] procedure are in the results section. MAGNESIUM Routine 08/01/2018 3:35 Results for this AM [facility] procedure are in the results section. CALCIUM, IONIZED Routine 08/01/2018 3:35 Results for this AM [facility] procedure are in the results section. PHOSPHORUS Routine 08/01/2018 3:35 Results for this AM [facility] procedure are in the results section. BASIC METABOLIC PANEL STAT 08/01/2018 1:54 Results for this (7) [facility] procedure are in the results section. POCT-GLUCOSE METER Routine 08/01/2018 1:53 Results for this AM [facility] procedure are in the results section. ECG 12-LEAD STAT 08/01/2018 12:41 Results for this AM [facility] procedure are in the results section. TROPONIN I STAT 08/01/2018 12:30 Results for this AM [facility] procedure are in the results section. POCT-GLUCOSE METER Routine 07/31/2018 11:39 Results for this PM [facility] procedure are in the results section. TRIGLYCERIDES Routine 07/31/2018 10:18 Results for this PM [facility] procedure are in the results section. C-REACTIVE PROTEIN Routine 07/31/2018 10:18 Results for this PM [facility] procedure are in the results section. LACTIC ACID, ARTERIAL, Routine 07/31/2018 9:39 Results for this WHOLE BLOOD PM [facility] procedure are in the results section. ECHOCARDIOGRAM REPORT - 07/31/2018 9:20 SCAN PM [facility] POCT-GLUCOSE METER Routine 07/31/2018 7:09 Results for this PM [facility] procedure are in the results section. TRANSFUSION SERVICE 07/31/2018 6:01 REPORT - SCAN PM [facility] JUAN DIEGO TITER AND PATTERN Routine 07/31/2018 5:19 Results for this PM [facility] procedure are in the results section. CARBOHYDRATE ANTIGEN Routine 07/31/2018 5:19 Results for this 19-9 (CA 19-9) PM [facility] procedure are in the results section. HEPATITIS C PCR, Routine 07/31/2018 5:19 Results for this QUANTITATIVE PM [facility] procedure are in the results section. HEPATITIS C GENOTYPE Routine 07/31/2018 5:19 Results for this PM [facility] procedure are in the results section. LIVER-KIDNEY MICROSOME Routine 07/31/2018 5:19 Results for this AB PM [facility] procedure are in the results section. CERULOPLASMIN Routine 07/31/2018 5:19 Results for this PM [facility] procedure are in the results section. ANTI-NUCLEAR ANTIBODY Routine 07/31/2018 5:19 Results for this (JUAN DIEGO) PM [facility] procedure are in the results section. [id number]\\, Routine 07/31/2018 5:19 Results for this SERUM PM [facility] procedure are in the results section. ACTIN (SMOOTH MUSCLE) Routine 07/31/2018 5:19 Results for this ANTIBODY, IGG PM [facility] procedure are in the results section. LACTIC ACID, ARTERIAL, Routine 07/31/2018 5:19 Results for this WHOLE BLOOD PM [facility] procedure are in the results section. US ABDOMINAL WITH YARELI 07/31/2018 4:37 Results for this DOPPLER PM [facility] procedure are in the results section. CARCINOEMBRYONIC ANTIGEN Routine 07/31/2018 4:06 Results for this (CEA) PM [facility] procedure are in the results section. ALPHA FETOPROTEIN (AFP), Routine 07/31/2018 4:06 Results for this TUMOR MARKER PM [facility] procedure are in the results section. HEPATITIS B SURFACE Routine 07/31/2018 4:06 Results for this ANTIGEN PM [facility] procedure are in the results section. HEPATITIS B SURFACE Routine 07/31/2018 4:06 Results for this ANTIBODY PM [facility] procedure are in the results section. HEPATITIS B CORE Routine 07/31/2018 4:06 Results for this ANTIBODY, TOTAL PM [facility] procedure are in the results section. HEPATITIS A ANTIBODY, Routine 07/31/2018 4:06 Results for this IGG PM [facility] procedure are in the results section. IRON, TIBC, % SAT. Routine 07/31/2018 4:06 Results for this (WITHOUT FERRITIN) PM [facility] procedure are in the results section. BLOOD CULTURE STAT 07/31/2018 4:06 Results for this PM [facility] procedure are in the results section. FERRITIN Routine 07/31/2018 4:05 Results for this PM [facility] procedure are in the results section. VANCOMYCIN LEVEL, TROUGH Timed 07/31/2018 4:05 Results for this PM [facility] procedure are in the results section. MAGNESIUM Routine 07/31/2018 4:05 Results for this PM [facility] procedure are in the results section. BLOOD CULTURE STAT 07/31/2018 4:05 Results for this PM [facility] procedure are in the results section. MISCELLANEOUS LAB ORDER Routine 07/31/2018 3:51 PM [facility] XR CHEST 1 VIEW STAT 07/31/2018 3:50 Results for this PORTABLE/BEDSIDE PM [facility] procedure are in the results section. UREA NITROGEN, RANDOM STAT 07/31/2018 12:40 Results for this URINE PM [facility] procedure are in the results section. CREATININE, RANDOM URINE STAT 07/31/2018 12:40 Results for this PM [facility] procedure are in the results section. SODIUM, RANDOM URINE STAT 07/31/2018 12:40 Results for this PM [facility] procedure are in the results section. OSMOLALITY, URINE STAT 07/31/2018 12:40 Results for this PM [facility] procedure are in the results section. POCT-GLUCOSE METER Routine 07/31/2018 11:50 Results for this AM [facility] procedure are in the results section. HEPATIC FUNCTION PANEL STAT 07/31/2018 10:01 Results for this AM [facility] procedure are in the results section. OSMOLALITY, SERUM STAT 07/31/2018 10:01 Results for this AM [facility] procedure are in the results section. LACTIC ACID, ARTERIAL, Routine 07/31/2018 10:01 Results for this WHOLE BLOOD AM [facility] procedure are in the results section. BASIC METABOLIC PANEL Routine 07/31/2018 10:01 Results for this (7) AM [facility] procedure are in the results section. BLOOD GAS, ARTERIAL Routine 07/31/2018 6:54 Results for this AM [facility] procedure are in the results section. XR CHEST 1 VIEW Routine 07/31/2018 4:35 Results for this PORTABLE/BEDSIDE AM [facility] procedure are in the results section. BLOOD GAS, ARTERIAL STAT 07/31/2018 3:47 Results for this AM [facility] procedure are in the results section. (CELLAVISION MANUAL Routine 07/31/2018 3:46 Results for this DIFF) AM [facility] procedure are in the results section. CBC W/PLT COUNT & AUTO Routine 07/31/2018 3:46 Results for this DIFFERENTIAL AM [facility] procedure are in the results section. CBC W/PLT COUNT & AUTO Routine 07/31/2018 3:46 Results for this DIFFERENTIAL AM [facility] procedure are in the results section. PT/APTT Routine 07/31/2018 3:46 Results for this AM [facility] procedure are in the results section. MAGNESIUM Routine 07/31/2018 3:46 Results for this AM [facility] procedure are in the results section. CALCIUM, IONIZED Routine 07/31/2018 3:46 Results for this AM [facility] procedure are in the results section. LACTIC ACID, ARTERIAL, Routine 07/31/2018 3:46 Results for this WHOLE BLOOD AM [facility] procedure are in the results section. BASIC METABOLIC PANEL Routine 07/31/2018 3:46 Results for this (7) AM [facility] procedure are in the results section. PREALBUMIN Routine 07/31/2018 3:46 Results for this AM [facility] procedure are in the results section. ALBUMIN Routine 07/31/2018 3:46 Results for this AM [facility] procedure are in the results section. PHOSPHORUS Routine 07/31/2018 3:46 Results for this AM [facility] procedure are in the results section. MAGNESIUM STAT 07/31/2018 12:48 Results for this AM [facility] procedure are in the results section. HEMOGLOBIN AND STAT 07/31/2018 12:48 Results for this HEMATOCRIT AM [facility] procedure are in the results section. BASIC METABOLIC PANEL STAT 07/31/2018 12:48 Results for this (7) AM [facility] procedure are in the results section. POCT-GLUCOSE METER Routine 07/30/2018 11:16 Results for this PM [facility] procedure are in the results section. MAGNESIUM Routine 07/30/2018 11:04 Results for this PM [facility] procedure are in the results section. HEMOGLOBIN AND Routine 07/30/2018 11:03 Results for this HEMATOCRIT PM [facility] procedure are in the results section. CALCIUM, IONIZED STAT 07/30/2018 11:03 Results for this PM [facility] procedure are in the results section. LACTIC ACID, ARTERIAL, Routine 07/30/2018 11:03 Results for this WHOLE BLOOD PM [facility] procedure are in the results section. POCT-GLUCOSE METER Routine 07/30/2018 9:06 Results for this PM [facility] procedure are in the results section. LACTIC ACID, ARTERIAL, STAT 07/30/2018 7:00 Results for this WHOLE BLOOD PM [facility] procedure are in the results section. BLOOD GAS, ARTERIAL STAT 07/30/2018 4:15 Results for this PM [facility] procedure are in the results section. 2D ECHO W/ DOPPLER STAT 07/30/2018 3:56 Results for this (CW/PW/COLOR) PM [facility] procedure are in the results section. BLOOD GAS, ARTERIAL STAT 07/30/2018 2:42 Results for this PM [facility] procedure are in the results section. PHOSPHORUS STAT 07/30/2018 2:36 Results for this PM [facility] procedure are in the results section. MAGNESIUM STAT 07/30/2018 2:36 Results for this PM [facility] procedure are in the results section. BASIC METABOLIC PANEL STAT 07/30/2018 2:36 Results for this (7) PM [facility] procedure are in the results section. CBC (HEMOGRAM ONLY) STAT 07/30/2018 2:36 Results for this PM [facility] procedure are in the results section. LACTIC ACID, VENOUS, Routine 07/30/2018 2:36 Results for this WHOLE BLOOD PM [facility] procedure are in the results section. XR CHEST 1 VIEW Routine 07/30/2018 1:12 Results for this PORTABLE/BEDSIDE PM [facility] procedure are in the results section. POCT-GLUCOSE METER Routine 07/30/2018 12:46 Results for this PM [facility] [employer] [facility] procedure are in the results section. TISSUE EXAM AP Routine 07/30/2018 11:01 Results for this AM [facility] procedure are in the results section. HGB/HCT (H&H) - STAT LAB STAT 07/30/2018 10:22 Results for this AM [facility] [employer] [facility] procedure are in the results section. GLUCOSE-STAT LAB STAT 07/30/2018 10:22 Results for this AM [facility] procedure are in the results section. POTASSIUM-STAT LAB STAT 07/30/2018 10:22 Results for this AM [facility] procedure are in the results section. SODIUM NA-STAT LAB STAT 07/30/2018 10:22 Results for this AM [facility] procedure are in the results section. BLOOD GAS, ARTERIAL STAT 07/30/2018 10:22 Results for this AM [facility] procedure are in the results section. CALCIUM, IONIZED STAT 07/30/2018 10:22 Results for this AM [facility] procedure are in the results section. RRL CRITICAL LABS STAT 07/30/2018 10:22 Results for this (ABG,NA,K,H&H,GLUCOSE) AM [facility] procedure are in the results section. SURGICALLY OBTAINED Routine 07/30/2018 9:40 Results for this CULTURE + GRAM STAIN AM [facility] procedure are in the results section. FUNGUS CULTURE + SMEAR Routine 07/30/2018 9:40 AM [facility] ANAEROBIC CULTURE Routine 07/30/2018 9:40 Results for this AM [facility] procedure are in the results section. AFB CULTURE + SMEAR Routine 07/30/2018 9:40 AM [facility] ECG 12-LEAD Routine 07/30/2018 8:07 Results for this AM [facility] procedure are in the results section. ECG 12-LEAD Routine 07/30/2018 8:07 AM [facility] Procedure Note - Interface, External Ris In - 07/30/2018 8:11 AM [facility] Ventricular Rate 102 BPM Atrial Rate 102 BPM P-R Interval 152 ms QRS Duration 112 ms Q-T Interval 414 ms QTC Calculation(Bazett) 539 ms P [place] 38 degrees R [place] -48 degrees T [place] 37 degrees Sinus tachycardia with Premature atrial complexes Incomplete right bundle branch block Left anterior fascicular block Cannot rule out Anterior infarct , age undetermined Prolonged QT Abnormal ECG No previous ECGs available LAPAROTOMY,EXPLORATORY 07/30/2018 8:00 Perforated bowel AM [facility] (HCC) PREPARE LEUKO-REDUCED RBC Routine 07/30/2018 7:53 Results for AM [facility]PER this procedure are in the results section. POCT-GLUCOSE METER Routine 07/30/2018 6:30 Results for AM [facility] [employer] [facility] this procedure are in the results section. OSMOLALITY, URINE Routine 07/30/2018 6:24 Results for AM [facility] this procedure are in the results section. CREATININE, RANDOM URINE Routine 07/30/2018 6:24 Results for AM [facility] [employer] [facility] this procedure are in the results section. SODIUM, RANDOM URINE Routine 07/30/2018 6:24 Results for AM [facility] [employer] [facility] this procedure are in the results section. ABORH, MANUAL STAT 07/30/2018 6:09 Results for AM [facility] this procedure are in the results section. TROPONIN I Routine 07/30/2018 6:09 Results for AM [facility] this procedure are in the results section. LACTIC ACID, VENOUS, WHOLE Routine 07/30/2018 6:09 Results for BLOOD AM [facility] this procedure are in the results section. BLOOD GAS, VENOUS STAT 07/30/2018 6:09 Results for AM [facility] this procedure are in the results section. XR ABDOMEN 1 VIEW STAT 07/30/2018 5:29 Results for AM [facility] [employer] [facility] this procedure are in the results section. XR CHEST 1 VIEW STAT 07/30/2018 5:26 Results for PORTABLE/BEDSIDE AM [facility] [employer] [facility] this procedure are in the results section. ANTIBODY SCREEN Routine 07/30/2018 4:56 Results for AM [facility] this procedure are in the results section. ABORH, MANUAL Routine 07/30/2018 4:56 Results for AM [facility] this procedure are in the results section. PROCALCITONIN STAT 07/30/2018 4:56 Results for AM [facility] [employer] [facility] this procedure are in the results section. BLOOD CULTURE IDENTIFICATION Routine 07/30/2018 4:39 Results for PANEL AM [facility] [employer] [facility] this procedure are in the results section. BLOOD CULTURE IDENTIFICATION Routine 07/30/2018 4:39 Results for PANEL AM [facility] this procedure are in the results section. BLOOD CULTURE Routine 07/30/2018 4:39 Results for AM [facility] [employer] [facility] this procedure are in the results section. BLOOD CULTURE Routine 07/30/2018 4:39 Results for AM [facility] [employer] [facility] this procedure are in the results section. (CELLAVISION MANUAL DIFF) STAT 07/30/2018 4:29 Results for AM [facility] [employer] [facility] this procedure are in the results section. CBC W/PLT COUNT & AUTO STAT 07/30/2018 4:29 Results for DIFFERENTIAL AM [facility] [employer] [facility] this procedure are in the results section. PHOSPHORUS STAT 07/30/2018 4:29 Results for AM [facility] [employer] [facility] this procedure are in the results section. MAGNESIUM STAT 07/30/2018 4:29 Results for AM [facility] [employer] [facility] this procedure are in the results section. PT/APTT STAT 07/30/2018 4:29 Results for AM [facility] [employer] [facility] this procedure are in the results section. LACTIC ACID, VENOUS, WHOLE STAT 07/30/2018 4:29 Results for BLOOD AM [facility] [employer] [facility] this procedure are in the results section. LIPASE Routine 07/30/2018 4:29 Results for AM [facility] [employer] [facility] this procedure are in the results section. AMYLASE Routine 07/30/2018 4:29 Results for AM [facility] [employer] [facility] this procedure are in the results section. COMPREHENSIVE METABOLIC PANEL STAT 07/30/2018 4:29 Results for AM [facility] [employer] [facility] this procedure are in the results section. CBC W/PLT COUNT & AUTO STAT 07/30/2018 4:29 Results for DIFFERENTIAL AM [facility] [employer] [facility] this procedure are in the results section. after 08/14/2017 Results EKG-SCANNED (08/15/2018 10:52 AM CDT) Narrative Performed At RHYTHM STRIP - SCAN (08/15/2018 10:52 AM CDT) Narrative Performed At POC-Glucose meter (08/11/2018 3:48 PM [facility])Only the most recent of49 resultswithin the time period is included. POC-Glucose Meter 163 (H)Comment: TESTED AT 70 - 110 mg/dL [facility] [address] [facility] [id number] Specimen Blood Performing Organization Address City/State/Zipcode Phone Number [address] [phone] CENTER PT/aPTT (08/11/2018 5:04 AM [facility]PER)Only the most recent of13 resultswithin the time period is included. Protime 16.4 (H) 11.7 - 14.7 seconds [facility] INR 1.3 <=5.9 [facility] PTT 37.4 (H) 22.5 - 36.0 seconds [facility] Specimen Blood Narrative Performed At RECOMMENDED COUMADIN/WARFARIN INR THERAPY [facility] RANGES STANDARD DOSE: 2.0 - 3.0 Includes: PROPHYLAXIS for venous thrombosis, systemic embolization; TREATMENT for venous thrombosis and/or pulmonary embolus. HIGH RISK: Target INR is 2.5-3.5 for patients with mechanical heart valves. Performing Organization Address City/[facility] Phone Number [address] [id number] [place] Calcium, Ionized (08/11/2018 5:04 AM [facility] [employer] [facility])Only the most recent of14 resultswithin the time period is included. Calcium, Ion 0.97 (L) 1.12 - 1.27 mmol/L [facility] pH, Blood 7.40 [facility] Specimen Blood Performing Organization Address City/[facility] Phone Number [address] [phone] [place] CBC with platelet count + automated diff (08/11/2018 5:04 AM [facility] [employer] [facility])Only the most recent of13 resultswithin the time period is included. WBC 6.4 3.5 - 10.5 K/L [facility] RBC 3.34 (L) 4.63 - 6.08 M/L [facility] Hemoglobin 10.6 (L) 13.7 - 17.5 GM/DL [facility] Hematocrit 31.9 (L) 40.1 - 51.0 % [facility] MCV 95.5 (H) 79.0 - 92.2 fL [facility] MCH 31.7 25.7 - 32.2 pg [facility] MCHC 33.2 32.3 - 36.5 GM/DL [facility] RDW 18.6 (H) 11.6 - 14.4 % [facility] Platelets 104 (L) 150 - 450 K/CU MM [facility] MPV 11.6 9.4 - 12.4 fL [facility] nRBC 0 0 - 0 /100 WBC [facility] % Neutros 78 % [facility] % Lymphs 10 % [facility] % Monos 10 % [facility] % Eos 1 % [facility] % Baso 0 % [facility] # Neutros 5.01 1.78 - 5.38 K/L [facility] # Lymphs 0.64 (L) 1.32 - 3.57 K/L [facility] # Monos 0.61 0.30 - 0.82 K/L [facility] # Eos 0.08 0.04 - 0.54 K/L [facility] # Baso 0.02 0.01 - 0.08 K/L [facility] Immature Granulocytes-Relative 1 0 - 1 % [facility] Specimen Blood Performing Organization Address City/State/Zipcode Phone Number [address] [address] [phone] CENTER Phosphorus (08/11/2018 5:04 AM [facility] [employer] [facility])Only the most recent of14 resultswithin the time period is included. Phosphorus 3.1 2.3 - 4.7 mg/dL [facility] Specimen Blood Performing Organization Address City/State/Zipcode Phone Number [address] [phone] CENTER Magnesium (08/11/2018 5:04 AM [facility] [employer] HELPER)Only the most recent of24 resultswithin the time period is included. Magnesium 1.7 1.6 - 2.6 mg/dL [facility] Specimen Blood Performing Organization Address City/State/Zipcode Phone Number [facility] [address] [place] [address] [place] Bilirubin, direct (08/11/2018 5:04 AM [facility] [employer] HEL[facility])Only the most recent of11 resultswithin the time period is included. Bilirubin, Direct 1.1 (H) 0.1 - 0.5 mg/dL [facility] Specimen Blood Performing Organization Address City/[facility]/Zipcode Phone Number [facility] [address] [place] [address] [phone] [place] Comprehensive metabolic panel (08/11/2018 5:04 AM [facility] [employer] HELPER)Only the most recent of12 resultswithin the time period is included. Protein, Total 5.9 (L) 6.0 - 8.3 gm/dL [facility] Albumin 2.0 (L) 3.5 - 5.0 g/dL [facility] Alkaline Phosphatase 153 (H) 40 - 150 U/L [facility] Total Bilirubin 1.4 (H) 0.2 - 1.2 mg/dL [facility] Sodium 135 (L) 136 - 145 meq/L [facility] Potassium 3.8 3.5 - 5.1 meq/L [facility] Chloride 107 98 - 107 meq/L [facility] CO2 24 22 - 29 meq/L [facility] BUN 27 (H) 7 - 21 mg/dL [facility] Creatinine 1.15 0.57 - 1.25 mg/dL [facility] Glucose 107 (H) 70 - 105 mg/dL [facility] Calcium 7.8 (L) 8.4 - 10.2 mg/dL [facility] AST 66 (H) 5 - 34 U/L [facility] ALT 29 6 - 55 U/L [facility] EGFR 66Comment: ESTIMATED GFR mL/min/1.[address] [facility] IS NOT ACCURATE [facility] CREATININE CLEARANCE IN PREDICTING GLOMERULAR FILTRATION RATE. ESTIMATED GFR IS NOT APPLICABLE FOR DIALYSIS PATIENTS. Specimen Blood Performing Organization Address City/State/Zipcode Phone Number [facility] [address] [place] [address] [phone] CENTER US paracentesis (08/10/2018 3:30 PM [facility] [employer] [facility]PER)Only the most recent of3 resultswithin the time period is included. Narrative Performed At FINAL REPORT [place] PROCEDURE: Ultrasound-guided paracentesis. INDICATION: 58-year-old man with ascites. DESCRIPTION: After obtaining informed written consent, ultrasound scan of the abdomen identified ascites in the right lower quadrant. The overlying skin was prepped and draped in the usual, sterile fashion and local 1% lidocaine anesthesia was administered. A 5 Icelandic catheter was advanced into the peritoneal cavity and 1200 cc of serosanguineous fluid was removed. The catheter was removed without immediate complication. Samples were sent for analysis. IMPRESSION: Uncomplicated ultrasound-guided paracentesis with 1200 cc fluid removed. Signed: Efren Rosas MD Report Verified Date/Time:08/10/2018 16:04:03 Reading Location: [address] Ultrasound Reading Room Procedure Note Interface, External Ris In - 08/10/2018 4:06 PM [facility] FINAL REPORT PROCEDURE: Ultrasound-guided paracentesis. INDICATION: 58-year-old man with ascites. DESCRIPTION: After obtaining informed written consent, ultrasound scan of the abdomen identified ascites in the right lower quadrant. The overlying skin was prepped and draped in the usual, sterile fashion and local 1% lidocaine anesthesia was administered. A 5 Icelandic catheter was advanced into the peritoneal cavity and 1200 cc of serosanguineous fluid was removed. The catheter was removed without immediate complication. Samples were sent for analysis. IMPRESSION: Uncomplicated ultrasound-guided paracentesis with 1200 cc fluid removed. Signed: Efren Rosas MD Report Verified Date/Time: 08/10/2018 16:04:03 Reading Location: [facility] B1 [id number] Ultrasound Reading Room Performing Organization Address City/State/Zipcode Phone Number [facility] RIS Body fluid cell count with differential (08/10/2018 3:29 PM [facility] [employer] HELPER)Only the most recent of3 resultswithin the time period is included. Appearance Cloudy (A) Clear [facility] Color [place] (A) Colorless, Straw [facility] [facility] RBCs 10,000 (H) <=1 /cu mm [facility] Adjusted WBC Count 240 (H) <=5 /cu mm [facility] Lining Cells 0 <=1 /cu mm [facility] % Segs 22 % [facility] % Lymphs 43 % [facility] % Monos 35 % [facility] % Eos 0 % [facility] % Baso 0 % [facility] Container Body Fluid EDTA Tube [facility] Specimen Body Fluid - Ascites Performing Organization Address [facility] Phone Number [address] [address] [place] Body fluid culture + gram stain (08/10/2018 3:28 PM [employer])Only the most recent of3 resultswithin the time period is included. Result No growth [facility] Gram Stain Result <1+ WBCs [facility] Gram Stain Result No organisms seen [facility] Specimen Body Fluid - Ascites Performing Organization Address City/[facility] Phone Number [address] [address] [phone] CENTER [place] bone scan whole body (08/09/2018 3:36 PM [employer] HELPER) Narrative Performed At FINAL REPORT GE RIS PROCEDURE: BONE SCAN, WHOLE BODY CPT CODE:89947 INDICATION:HCC PROTOCOL:31.3 mCi of Tc-99m MDP was injected intravenously. Whole body and selected spot images were obtained approximately 3 hours later. FINDINGS: The delayed whole body bone scan and spot images shows increase in the shoulders, right greater than left. There is diffuse soft tissue activity in the abdomen suggests ascites. There is minor focal findings in posterior ribs suggestive of muscle attachment sites. IMPRESSION:Abnormal whole body bone scan. The findings are consistent with degenerative changes in the bones and suggestive of abdominal ascites. There is no osseous pattern of metastatic disease Images for comparison/correlation were CT of chest on August 08, 2018 and MR abdomen on August 18, 2018.. Signed: Federico Mathew MD Report Verified Date/Time:08/09/2018 16:34:55 Reading Location: [address] [place] Reading Room Procedure Note Interface, External Ris In - 08/09/2018 4:37 PM [employer] FINAL REPORT PROCEDURE: BONE SCAN, WHOLE BODY CPT CODE: 31129 INDICATION: HCC PROTOCOL: 31.3 mCi of Tc-99m MDP was injected intravenously. Whole body and selected spot images were obtained approximately 3 hours later. FINDINGS: The delayed whole body bone scan and spot images shows increase in the shoulders, right greater than left. There is diffuse soft tissue activity in the abdomen suggests ascites. There is minor focal findings in posterior ribs suggestive of muscle attachment sites. IMPRESSION: Abnormal whole body bone scan. The findings are consistent with degenerative changes in the bones and suggestive of abdominal ascites. There is no osseous pattern of metastatic disease Images for comparison/correlation were CT of chest on August 08, 2018 and MR abdomen on August 18, 2018.. Signed: Federico Mathew MD Report Verified Date/Time: 08/09/2018 16:34:55 Reading Location: [address] [place] Reading Room Performing Organization Address City/State/Zipcode Phone Number [facility] CT chest without IV contrast (08/08/2018 5:45 PM [employer] HELPER) Narrative Performed At FINAL REPORT [place] CT scan of the chest. CLINICAL HISTORY: Metastatic workup. COMPARISON STUDY: Chest x-ray dated August 03, 2018. TECHNIQUE: Contiguous helical slices were acquired through the thorax without the administration of contrast. This exam was performed according to our department dose optimization program which includes automated exposure control, adjustment of the mA and/or kV according to the patient's size and/or use of iterative reconstruction technique. FINDINGS: The mediastinum demonstrates atherosclerosis but no suspicious masses or adenopathy. There is a left-sided Port-A-Cath. A small right-sided pleural effusion is seen. There is no left-sided effusion. The visualized bones of the upper abdomen demonstrate a markedly nodular, cirrhotic appearing liver. Mild to moderate ascites is seen. Please refer to recent abdominal imaging. The tracheobronchial tree is clear with no endobronchial lesions. The pulmonary parenchyma demonstrates a tiny granuloma in the right lung apex. Atelectasis or consolidation is seen in the lung bases, more so on the right side. Bone windows demonstrate degenerative changes. Old right-sided rib fractures are seen. IMPRESSION: 1. Small right-sided pleural effusion with adjacent atelectasis or consolidation. In the right clinical setting, a superimposed infection would be difficult to exclude. Clinical correlation and short term imaging follow-up could be made to exclude other etiologies. 2. Nodular, cirrhotic appearing liver. Please refer to recent dedicated abdominal imaging. Signed: Gideon Aiken MD Report Verified Date/Time:08/08/2018 20:21:41 Reading Location: [address] Consult Reading Room Procedure Note Interface, External Ris In - 08/08/2018 8:23 PM [employer] HELPER FINAL REPORT CT scan of the chest. CLINICAL HISTORY: Metastatic workup. COMPARISON STUDY: Chest x-ray dated August 03, 2018. TECHNIQUE: Contiguous helical slices were acquired through the thorax without the administration of contrast. This exam was performed according to our department dose optimization program which includes automated exposure control, adjustment of the mA and/or kV according to the patient's size and/or use of iterative reconstruction technique. FINDINGS: The mediastinum demonstrates atherosclerosis but no suspicious masses or adenopathy. There is a left-sided Port-A-Cath. A small right-sided pleural effusion is seen. There is no left-sided effusion. The visualized bones of the upper abdomen demonstrate a markedly nodular, cirrhotic appearing liver. Mild to moderate ascites is seen. Please refer to recent abdominal imaging. The tracheobronchial tree is clear with no endobronchial lesions. The pulmonary parenchyma demonstrates a tiny granuloma in the right lung apex. Atelectasis or consolidation is seen in the lung bases, more so on the right side. Bone windows demonstrate degenerative changes. Old right-sided rib fractures are seen. IMPRESSION: 1. Small right-sided pleural effusion with adjacent atelectasis or consolidation. In the right clinical setting, a superimposed infection would be difficult to exclude. Clinical correlation and short term imaging follow-up could be made to exclude other etiologies. 2. Nodular, cirrhotic appearing liver. Please refer to recent dedicated abdominal imaging. Signed: Gideon Aiken MD Report Verified Date/Time: 08/08/2018 20:21:41 Reading Location: [facility] C013W Consult Reading Room Performing Organization Address City/State/Zipcode Phone Number [employer] MR abdomen without & with IV contrast (08/08/2018 12:39 AM [employer]ER HAND HELPER) Narrative Performed At FINAL REPORT [employer] INDICATION: Cirrhosis. Surveillance for hepatocellular carcinoma. COMPARISON: Abdomen ultrasound with Doppler July 31, 2018 TECHNIQUE: MR of the Abdomen WITHOUT and WITH intravenous contrast. FINDINGS: In segment V and there is a enhancing mass with washout and low signal on T2-weighted imaging highly suspicious for hepatocellular carcinoma. The mass measures 6.7 x 4.7 x 4.3 cm and has grown centrally to the hilum and into segment VIII. There is thrombus in the right portal vein which appears to enhance suggesting tumor thrombus. No caudate lobe or left hepatic lobe mass present. No upper abdominal lymphadenopathy. Main portal vein measures 1.0 cm in diameter. The superior mesenteric vein is small in caliber and there is suggestion of partial thrombus in the superior mesenteric vein. Tiny thrombus in the left portal vein is noted. Spleen measures 15 cm coronal long axis. Perisplenic varices noted. There is moderate ascites. Gallbladder is distended but otherwise unremarkable. There is no biliary ductal dilatation. Pancreas, adrenal glands, kidneys, visualized bowel loops are unremarkable. Right base subsegmental atelectasis is noted. IMPRESSION: Cirrhosis with right hepatic lobe 6-cm mass highly suspicious for hepatocellular carcinoma with probable tumor thrombus. Partial thrombus in the superior mesenteric vein and tiny thrombus (bland) in the left portal vein. Signed: Newton Casper MD Report Verified Date/Time:08/08/2018 14:37:29 Reading Location: [facility] B1 C013Y CT Body Reading Room Procedure Note Interface, External Ris In - 08/08/2018 2:39 PM [employer]PER FINAL REPORT INDICATION: Cirrhosis. Surveillance for hepatocellular carcinoma. COMPARISON: Abdomen ultrasound with Doppler July 31, 2018 TECHNIQUE: MR of the Abdomen WITHOUT and WITH intravenous contrast. FINDINGS: In segment V and there is a enhancing mass with washout and low signal on T2-weighted imaging highly suspicious for hepatocellular carcinoma. The mass measures 6.7 x 4.7 x 4.3 cm and has grown centrally to the hilum and into segment VIII. There is thrombus in the right portal vein which appears to enhance suggesting tumor thrombus. No caudate lobe or left hepatic lobe mass present. No upper abdominal lymphadenopathy. Main portal vein measures 1.0 cm in diameter. The superior mesenteric vein is small in caliber and there is suggestion of partial thrombus in the superior mesenteric vein. Tiny thrombus in the left portal vein is noted. Spleen measures 15 cm coronal long axis. Perisplenic varices noted. There is moderate ascites. Gallbladder is distended but otherwise unremarkable. There is no biliary ductal dilatation. Pancreas, adrenal glands, kidneys, visualized bowel loops are unremarkable. Right base subsegmental atelectasis is noted. IMPRESSION: Cirrhosis with right hepatic lobe 6-cm mass highly suspicious for hepatocellular carcinoma with probable tumor thrombus. Partial thrombus in the superior mesenteric vein and tiny thrombus (bland) in the left portal vein. Signed: Newton Casper MD Report Verified Date/Time: 08/08/2018 14:37:29 Reading Location: [facility] B1 C013Y CT Body Reading Room Performing Organization Address City/State/Zipcode Phone Number [facility] C-Reactive Protein (08/07/2018 4:41 AM [employer] HELPER)Only the most recent of2 resultswithin the time period is included. CRP 3.98 (H) 0.00 - 0.50 mg/dL [facility] Specimen Blood Performing Organization Address [facility] Phone Number [address] [address] CENTER Triglycerides (08/07/2018 4:41 AM [employer] HELPER)Only the most recent of2 resultswithin the time period is included. Triglycerides 64 mg/dL [facility] Specimen Blood Narrative Performed At TRIGLYCERIDE REFERENCE RANGE [facility] Low Risk<150 Borderline Risk 150-199 High [id number] Very High Risk >=500 Specimen slightly icteric Performing Organization Address [facility] Phone Number [address] [address] [phone] CENTER Prealbumin (08/07/2018 4:41 AM [employer] HELPER)Only the most recent of2 resultswithin the time period is included. Prealbumin 7 (L) 14 - 45 mg/dL [facility] Specimen Blood Performing Organization Address [facility] Phone Number [address] [address] [place] Protein, body fluid (08/06/2018 2:02 PM [employer] HELPER) Protein, Fluid 1.8 g/dL [facility] Specimen Body Fluid - Ascites Narrative Performed At Absence of reference range indicates that [facility] normals have not been defined. Assay performance has not been validated for this type of specimen. Performing Organization Address [facility] Phone Number [address] [address] [phone] [place] Albumin, body fluid (08/06/2018 2:02 PM [employer] HELPER) Albumin, Fluid 1.0 gm/dL [facility] Specimen Body Fluid - Ascites Narrative Performed At Reference Range:No Normals [facility] Assay performance has not been validated for this type of specimen. Performing Organization Address [facility] Phone Number [facility] [address] [place] [address] [phone] CENTER Cytology (08/06/2018 2:00 PM [employer]ER HAND HELPER) Case Report Medical Cytology Report Case: [id number] [facility] Authorizing Provider:Anjel Moya MDCollected: 08/06/2018 1400 [facility] Ordering Location: [address] Received: 08/08/2018 0943 Service Pathologist: Nadege Busby MD Specimen:Peritoneal Fluid DIAGNOSIS PERITONEAL FLUID (CYTOSPINS AND CELL BLOCK): [facility] - NEGATIVE FOR MALIGNANCY [facility] PREDOMINANTLY BLOOD; ACUTE INFLAMMATORY CELLS Signing Pathologist Direct Phone Line: [phone] CPT Code(s) 35896, 05948 [facility] CLINICAL DATA Ascites, recently diagnosed [facility] with hepatocellular [facility] carcinoma (see [id number]) SPECIMEN SOURCE PERITONEAL FLUID [facility] GROSS DESCRIPTION 1000 mls orange; 4 cytospins, cell block [facility] Collected: [id number] [facility] Received: [id number] MICROSCOPIC DESCRIPTION Performed. [facility] STATEMENT OF ADEQUACY Satisfactory [facility] Gross assessment was [facility] performed at [place], Department [facility], [address] [place] [id number], Technical component was [facility] performed at [place], Department [facility], [address] [place] [id number], Professional component was [facility] performed at [place], Department [facility], [address] [place] [id number], Specimen Body Fluid - Peritoneal Fluid Narrative Performed At Performing Organization Address City/[facility]/Zipcode Phone Number [facility] [address] [place] [address] CENTER B-type Natriuretic Factor (BNP) (08/06/2018 4:32 AM [employer]ER [employer] HELPER)Only the most recent of2 resultswithin the time period is included. BNP 139 (H) 0 - 100 pg/mL [facility] Specimen Blood Performing Organization Address City/[facility] Phone Number [address] [address] [place] Hemoglobin and hematocrit (08/04/2018 3:53 PM [employer] HELPER)Only the most recent of3 resultswithin the time period is included. Hemoglobin 12.3 (L) 13.7 - 17.5 GM/DL [facility] Hematocrit 35.2 (L) 40.1 - 51.0 % [facility] Specimen Blood - Central Venous Line Performing Organization Address City/[facility] Phone Number [facility] [address] [place] [address] [place] XR chest 1 view portable / bedside (08/03/2018 8:12 AM [employer] HELPER)Only the most recent of8 resultswithin the time period is included. Narrative Performed At FINAL REPORT GE RIS AP view of the chest dated 08/03/2018 COMPARISON: 08/02/2018 CLINICAL INFORMATION: pleural effusion vs atelectasis Comment:Heart is normal in size. Pulmonary vasculature is unremarkable. Lungs are clear. No pulmonary infiltrate or pleural effusion is present. Left PICC line remains in place. Impression:No interval change. Signed: Elsy Tafoya MD Report Verified Date/Time:08/03/2018 09:00:26 Reading Location: [facility] Radiology Reading Room Procedure Note Interface, External Ris In - 08/03/2018 9:02 AM [employer] HELPER FINAL REPORT AP view of the chest dated 08/03/2018 COMPARISON: 08/02/2018 CLINICAL INFORMATION: pleural effusion vs atelectasis Comment: Heart is normal in size. Pulmonary vasculature is unremarkable. Lungs are clear. No pulmonary infiltrate or pleural effusion is present. Left PICC line remains in place. Impression: No interval change. Signed: Elsy Tafoya MD Report Verified Date/Time: 08/03/2018 09:00:26 Reading Location: [facility] Reading Room Performing Organization Address City/[facility]/Zipcode Phone Number RIS HIV-1 Antigen with HIV-1/2 Antibody (08/03/2018 4:29 AM [employer]ER HAND HELPER) HIV-1 Antigen with HIV 1&2 NON-REACTIVE Nonreactive [facility] Specimen Blood - Central Venous Line Performing Organization Address [facility] Phone Number [address] [address] [phone] CENTER Ammonia (08/03/2018 4:29 AM PIER HAND HELPER) Ammonia 50 18 - 72 mol/L [facility] Specimen Blood - Central Venous Line Performing Organization Address [facility] Phone Number [facility] [address] [place] [address] [phone] [place] Basic Metabolic Panel (08/03/2018 4:29 AM [employer]ER HAND HELPER)Only the most recent of8 resultswithin the time period is included. Sodium 132 (L) 136 - 145 meq/L [facility] Potassium 4.0 3.5 - 5.1 meq/L [facility] Chloride 102 98 - 107 meq/L [facility] CO2 24 22 - 29 meq/L [facility] BUN 84 (H) 7 - 21 mg/dL [facility] Creatinine 2.09 (H) 0.57 - 1.25 mg/dL [facility] Glucose 99 70 - 105 mg/dL [facility] Calcium 8.0 (L) 8.4 - 10.2 mg/dL [facility] EGFR 33Comment: ESTIMATED GFR IS mL/min/1.73 sq m [facility] NOT ACCURATE [facility] CLEARANCE IN PREDICTING GLOMERULAR FILTRATION RATE. ESTIMATED GFR IS NOT APPLICABLE FOR DIALYSIS PATIENTS. Specimen Blood - Central Venous Line Performing Organization Address [facility]/Zipcode Phone Number [address] [address] [phone] [place] Drug screen, urine, transplant (08/02/2018 5:01 AM PIER HAND HELPER) Specimen Urine Narrative Performed At Performing Organization Address [facility]/Zipcode Phone Number [facility] [phone] [place] [address] Protein, random urine (08/02/2018 5:01 AM PIER HAND HELPER) Protein, Urine 33 (H) 0 - 14 mg/dL [facility] Specimen Urine - Urine, Clean Catch Performing Organization Address [facility] Phone Number [address] [address] [phone] [place] Creatinine, random urine (08/02/2018 5:01 AM PIER HAND HELPER)Only the most recent of3 resultswithin the time period is included. Creatinine, Ur 110.8 mg/dL [facility] Specimen Urine - Urine, Clean Catch Narrative Performed At Reference Range: No Normals [facility] Performing Organization Address [facility] Phone Number [address] [phone] [place] Urinalysis w/Microscopic (08/02/2018 5:01 AM [employer]ER HAND HELPER) Color, UA Yellow [facility] Clarity, UA Hazy [facility] Specific [place], UA 1.017 1.001 - 1.035 [facility] pH, UA 5.5 5.0 - 8.0 [facility] Protein, UA 20 mg/dL (A) Negative [facility] Glucose, UA Negative Negative [facility] Ketones, UA Negative Negative [facility] Bilirubin, UA Negative Negative [facility] Blood, UA Trace (A) Negative [facility] Nitrite, UA Negative Negative [facility] Leukocytes, UA Small (A) Negative [facility] Urobilinogen, UA 0.2 0.2 - 1.0 mg/dL [facility] RBC, UA 4 /HPF [facility] WBC, UA 17 /HPF [facility] Bacteria, UA Rare [facility] Mucus Rare [facility] Squam Epithel, UA 8 /HPF [facility] Hyaline Casts, UA 28 /LPF [facility] Amorphous Crystals Occasional [facility] Specimen Source Urine, Clean Catch [facility] Specimen Urine - Urine, Clean Catch Performing Organization Address City/[facility]/Zipcode Phone Number [address] [address] [phone] [place] Creatine Kinase (CK) (08/02/2018 4:58 AM [employer]ER HAND HELPER) Total CK 114 29 - 200 U/L [facility] Specimen Blood Performing Organization Address City/[facility]/Zipcode Phone Number [address] [address] [place] SOLUBLE LIVER ANTIGEN (SLA) (08/01/2018 3:35 AM [employer]ER HAND HELPER) Soluble Liver Antigen <20.1 See Note: [facility] (SLA) AutoantibodyY Comment: INCORPORATED Reference Range: NEGATIVE:0.0-20.0 EQUIVOCAL:20.1-24.9 POSITIVE:>=25.0 Antibodies to soluble liver antigen (SLA) appear to be directed against the UGA-suppressor tRNA associated protein. These antibodies are highly specific for autoimmune hepatitis (AIH) and may, rarely, be the only autoantibodies detected in serum from such patients. Antibodies to SLA are most closely associated with AIH type 1; the presence of these antibodies in patients with cryptogenic hepatitis suggests that these patients may have AIH type 1. Anti-SLA antibodies may be detected in some patients with the primary biliary cirrhosis-AIH overlap syndrome, but not in healthy controls. Specimen Blood - Central Venous Line Narrative Performed At Performing Lab [employer] [employer] [facility] [employer] Diagnostics [facility] [address] [place] [address] Sal Stratton MD, PhD, [place] Performing Organization Address City/State/Zipcode Phone Number [employer] [facility] DIAGNOSTIC [facility], [place] [address] INCORPORATED [id number] LIA Manual Differential (08/01/2018 3:35 AM [employer]ER HAND HELPER)Only the most recent of3 resultswithin the time period is included. % Neutros 90 % [facility] % Lymphs 1 % [facility] % Monos 4 % [facility] % Bands 5 0 - 10 % [facility] # Neutros 13.41 (H) 1.78 - 5.38 K/ul [facility] # Lymphs 0.15 (L) 1.32 - 3.57 K/ul [facility] # Monos 0.60 0.30 - 0.82 K/uL [facility] # Bands 0.75 0.00 - 0.80 K/uL [facility] Total Counted 100 [facility] WBC Morphology Normal [facility] Platelet Morphology Normal [facility] Anisocytosis 2+ moderate [facility] Macrocytes 2+ moderate [facility] Poikilocytes 2+ moderate [facility] [place] Cells 1+ few [facility] Artifact Present [facility] Platelet Conc Decreased [facility] Specimen Blood - Central Venous Line Narrative Performed At Received comment: [facility] User comments: Slide comments: Performing Organization Address City/State/[facility] Phone Number [facility] [address] [place] [address] [place] Lactic acid, venous, whole blood (08/01/2018 3:35 AM PIER HAND HELPER)Only the most recent of4 resultswithin the time period is included. Lactate, Venous 1.3 0.5 - 2.2 mmol/L [facility] Specimen Blood - Central Venous Line Performing Organization Address [facility] Phone Number [facility] [address] [place] [address] [phone] [place] ECG 12 lead (08/01/2018 12:41 AM PIER HAND HELPER)Only the most recent of2 resultswithin the time period is included. Narrative Performed At Ventricular Rate 89 BPM GE MUSE Atrial Rate 89 BPM P-R Interval 162 ms QRS Duration 124 ms Q-T Interval 394 ms QTC Calculation(Bazett) 479 ms P [place] 59 degrees R [place] -45 degrees T [place] 54 degrees Normal sinus rhythm Left anterior fascicular block Abnormal ECG When compared with ECG of 28-SEP-1995 12:05, ST no longer depressed in Anterolateral leads Confirmed by MD Arvizu Roberto ([id number]) on 08/07/2018 1:14:48 PM Procedure Note Interface, External Ris In - 08/07/2018 1:14 PM PIER HAND HELPER Ventricular Rate 89 BPM Atrial Rate 89 BPM P-R Interval 162 ms QRS Duration 124 ms Q-T Interval 394 ms QTC Calculation(Bazett) 479 ms P [place] 59 degrees R [place] -45 degrees T [place] 54 degrees Normal sinus rhythm Left anterior fascicular block Abnormal ECG When compared with ECG of 28-SEP-1995 12:05, ST no longer depressed in Anterolateral leads Confirmed by MD Arvizu Roberto ([id number]) on 08/07/2018 1:14:48 PM Performing Organization Address City/[facility] Phone Number [employer] MUSE Troponin I (08/01/2018 12:30 AM PIER HAND HELPER)Only the most recent of2 resultswithin the time period is included. Troponin I 0.01 0.00 - 0.03 ng/mL [facility] Specimen Blood Narrative Performed At Troponin I (TnI) levels must be interpreted [facility] in the context of the presenting symptoms and the clinical findings. Elevated TnI levels indicate myocardial damage, but are not specific for ischemic heart disease. Elevated TnI levels are seen in patients with other cardiac conditions (including myocarditis and congestive heart failure), and slight TnI elevations occur in patients with other conditions, including sepsis, renal failure, acidosis, acute neurological disease, and persistent tachyarrhythmia. Performing Organization Address City/State/Zipcode Phone Number [address] [address] [phone] [place] Lactic acid, arterial, whole blood (07/31/2018 9:39 PM PIER HAND HELPER)Only the most recent of6 resultswithin the time period is included. Lactate, Art 1.4 0.5 - 2.2 mmol/L [facility] Specimen Blood, Arterial Performing Organization Address City/State/Zipcode Phone Number [address] [address] [place] ECHOCARDIOGRAM REPORT - SCAN (07/31/2018 9:20 PM PIER HAND HELPER) Narrative Performed At TRANSFUSION SERVICE REPORT - SCAN (07/31/2018 6:01 PM PIER HAND HELPER) Narrative Performed At LIVER-KIDNEY MICROSOME AB (07/31/2018 5:19 PM PIER HAND HELPER) LKM-1 Antibody (IgG) <20.0 See Note: [facility] Comment: INCORPORATED Reference Range: <=20.0 NEGATIVE 20.1-24.9EQUIVOCAL >=25.0 POSITIVE Anti-liver/kidney microsomal antibodies (Anti-LKM-1) were previously tested by indirect immunofluorescence (IF) using rodent liver/kidney substrate. Identification of a specific antibody target as cytochrome P450 IID6 has led to the current recombinant based MELI. Antibodies to this cytochrome are present in approximately 70% of patients with autoimmune hepatitis type 2. This antibody is also present in approximately 10% of patients with hepatitis C infection. Specimen Blood Narrative Performed At Performing Lab [facility] [place] [address] [place] [address] Sal Stratton MD, PhD, [place] Performing Organization Address [facility] [place] [address] INCORPORATED [address] [facility] Actin (Smooth Muscle) Antibody, IgG (07/31/2018 5:19 PM PIER HAND HELPER) Anti-Smooth Muscle Ab 25 (H) See Note: [facility] Comment: INCORPORATED Reference Range: <20 NEGATIVE > OR=20 POSITIVE Antibodies recognizing actin are the main component of smooth muscle antibodies associated with autoimmune liver disease. Actin antibodies are found in approximately 75% of patients with autoimmune hepatitis (AIH) type 1, approximately 65% of patients with autoimmune cholangitis, approximately 30% of patients with primary biliary cirrhosis, and approximately 2% of healthy people. High values are closely correlated with AIH type 1. Specimen Blood Narrative Performed At Performing Lab [facility] [facility] [place] [address] [place] [address] Sal Stratton MD, PhD, [place] Performing Organization Address [facility] [place] [address] INCORPORATED [address] [facility] [id number] (07/31/2018 5:19 PM PIER HAND HELPER) A-1 Antitrypsin 258.30 (H) 90.00 - 200.00 mg/dL [facility] Specimen Blood Performing Organization Address [facility] Phone Number [facility] [address] [place] [address] [place] Carbohydrate antigen 19-9 (CA 19-9) (07/31/2018 5:19 PM PIER HAND HELPER) [place] 19-9 21 <34 U/mL [facility] Comment: This test was performed using the Siemens (Chriss) Chemiluminescent method. Values obtained from different assay methods cannot be used interchangeably. CA19-9 levels, regardless of value, should not be interpreted as absolute evidence of the presence or absence of disease. Specimen Blood Narrative Performed At Performing Lab [facility] [facility] [address] [place] [address] Sal Stratton MD, PhD, [place] Performing Organization Address City/[facility] Hospitalcode [place] [address] INCORPORATED [address] [facility] JUAN DIEGO Titer & Pattern (07/31/2018 5:19 PM PIER HAND HELPER) [place] Titer 1:160 [facility] JUAN [place]IEGO Pattern Speckled [facility] Specimen Blood Performing Organization Address [facility] Hospital[facility] Phone Number [place] [phone] [place] [address] CENTER Ceruloplasmin (07/31/2018 5:19 PM PIER HAND HELPER) Ceruloplasmin 22 18 - 36 mg/dL [employer] [facility] Comment: Adults:Males: 18-36 mg/dL Females: 18-53 mg/dL Pediatrics:Males (mg/dL)Females (mg/dL) 0-30 Days 8-25 3-28 31 Days-11 Month [id number] 1-3 [id number] 4-6 [id number] 7-9 [id number] 10-12 [id number] 13-15 [id number] 16-18 [id number] The pediatric ranges are derived from the following criteria: Zoe SJ, Linette JM, Adelaide J et al Pediatric reference ranges for Xmyy-1-Deyddarcjdgbh and ceruloplasmin. Clin. Chem 1997; 43:S1999 Pediatric Reference Ranges, 2nd., [place] Zoeet al. editors. [employer], [place], [place] 1997. Specimen Blood Narrative Performed At Performing Lab [facility] *[facility] [place] [employer] [place], [address] [place] [phone] Aniceto Gibson MD, PhD Performing Organization Address City/State/Zipcode Phone Number [place] [address] INCORPORATED [address] [facility] Hepatitis C genotype (07/31/2018 5:19 PM PIER HAND HELPER) HCV Genotype, LiPA 3 [facility] Comment: INCORPORATED The method used in this test is RT-PCR and reverse hybridization (Line Probe) of the 5' UTR and core region of the HCV genome. The analytical performance characteristics of this assay have been determined by [facility]. The modifications have not been cleared or approved by the FDA. This assay has been validated pursuant to the CLIA regulations and is used for clinical purposes. For additional information, please refer to http://education.kenxus /faq/HCVGenotyping (This link id being provided for informational/ educational purposes only.) Specimen Blood Narrative Performed At Performing Lab [facility] *QDID [facility] [address] [place] [phone] Chata Miller MD Performing Organization Address City/State/Zipcode Phone Number [facility] [place] [address] INCORPORATED [address] [facility] Hepatitis C PCR, Quantitative (07/31/2018 5:19 PM PIER HAND HELPER) HCV PCR, Quantitative 7,430,000 (H) <15 IU/mL [facility] Specimen Blood Narrative Performed At This test uses a Real-Time Polymerase Chain [facility] Reaction (RT-PCR) methodology and was performed using JOY Ampliprep/JOY TaqMan HCV test kit version 2.0 ([employer]). Reportable range for this assay is 15 - 100,000,000 IU per mL (1.18 - 8.00 Log IU/mL). Performing Organization Address City/State/Zipcode Phone Number [address] [address] [phone] CENTER Anti-Nuclear Antibody (JUAN DIEGO) (07/31/2018 5:19 PM PIER HAND HELPER) JUAN DIEGO Positive (A) Negative [facility] Specimen Blood Narrative Performed At Test performed by IFA method. [facility] Performing Organization Address City/State/Zipcode Phone Number [facility] [address] [place] [address] CENTER US abdominal with doppler (07/31/2018 4:37 PM PIER HAND HELPER) Narrative Performed At FINAL REPORT [employer] Complete Abdominal Ultrasound History: Cirrhosis Comparison: none Findings: The liver appears cirrhotic.No definite hepatic mass or intrahepatic biliary dilation.Mild perihepatic ascites. Moderate biliary sludge within the gallbladder. No gallbladder wall thickening or pericholecystic fluid.No sonographic Pisano's sign. Common bile duct is not well-visualized on this study. The main portal vein appears patent, with expected hepatopedal flow. The main portal vein measures 9 mm in diameter. The left portal vein is patent. The right portal vein is poorly visualized, but is probably patent. The central hepatic arteries and veins appear patent, with expected waveforms. Pancreas not well seen due to overlying bowel gas.Bilateral kidney demonstrates no hydronephrosis, shadowing calculus, or mass lesion. Right kidney measures 10.0 x 6.7 x 5.8cm.Left kidney measures 12.4 x 6.5 x 5.6cm. Borderline splenomegaly, with spleen measuring 14.1 cm in craniocaudal dimension. Normal caliber of the visualized abdominal aorta.No apparent filling defect in the visualized inferior vena cava. Impression: 1. Hepatic cirrhosis. 2. Mild perihepatic ascites. 3. Borderline splenomegaly. Signed: Cuco Pastrana MD Report Verified Date/Time:07/31/2018 17:05:57 Reading Location: [address] Consult Reading Room Procedure Note Interface, External Ris In - 07/31/2018 5:08 PM PIER HAND HELPER FINAL REPORT Complete Abdominal Ultrasound History: Cirrhosis Comparison: none Findings: The liver appears cirrhotic. No definite hepatic mass or intrahepatic biliary dilation. Mild perihepatic ascites. Moderate biliary sludge within the gallbladder. No gallbladder wall thickening or pericholecystic fluid. No sonographic Pisano's sign. Common bile duct is not well-visualized on this study. The main portal vein appears patent, with expected hepatopedal flow. The main portal vein measures 9 mm in diameter. The left portal vein is patent. The right portal vein is poorly visualized, but is probably patent. The central hepatic arteries and veins appear patent, with expected waveforms. Pancreas not well seen due to overlying bowel gas. Bilateral kidney demonstrates no hydronephrosis, shadowing calculus, or mass lesion. Right kidney measures 10.0 x 6.7 x 5.8cm. Left kidney measures 12.4 x 6.5 x 5.6cm. Borderline splenomegaly, with spleen measuring 14.1 cm in craniocaudal dimension. Normal caliber of the visualized abdominal aorta. No apparent filling defect in the visualized inferior vena cava. Impression: 1. Hepatic cirrhosis. 2. Mild perihepatic ascites. 3. Borderline splenomegaly. Signed: Cuco Pastrana MD Report Verified Date/Time: 07/31/2018 17:05:57 Reading Location: [id number] Ortho Consult Reading Room Performing Organization Address [facility] Phone Number [facility] Hepatitis A antibody, IgG (07/31/2018 4:06 PM PIER HAND HELPER) Hep A IgG Nonreactive Nonreactive [facility] Specimen Blood Performing Organization Address [facility] Phone Number [address] [address] [phone] CENTER Iron, TIBC, % sat. (without ferritin) (07/31/2018 4:06 PM PIER HAND HELPER) Iron 10.0 (L) 40.0 - 160.0 ug/dL [facility] TIBC 83 (L) 250 - 450 ug/dL [facility] Iron % Saturation 12 (L) 20 - 55 % [facility] Specimen Blood Performing Organization Address [facility] Phone Number [address] [address] [phone] CENTER Alpha fetoprotein (AFP), tumor marker (07/31/2018 4:06 PM PIER HAND HELPER) Alpha-Fetoprotein 8,541.3 (H) <10.0 ng/mL [facility] Specimen Blood Performing Organization Address City/State/Zipcode Phone Number [address] [address] [place] Hepatitis B core antibody, total (07/31/2018 4:06 PM PIER HAND HELPER) Hep B Core Total Ab REACTIVE (A) Nonreactive [facility] Specimen Blood Performing Organization Address [facility] Phone Number [address] [address] [phone] [place] Hepatitis B surface antibody (07/31/2018 4:06 PM PIER HAND HELPER) Hep B S Ab <8.0 <8.0 mIU/mL [facility] Specimen Blood Performing Organization Address [facility] Phone Number [address] [address] [place] Hepatitis B surface antigen (07/31/2018 4:06 PM PIER HAND HELPER) hepatitis B Surface Ag NON-REACTIVE Nonreactive [facility] Specimen Blood Performing Organization Address [facility] Phone Number [address] [address] [phone] [place] Blood culture (07/31/2018 4:06 PM PIER HAND HELPER)Only the most recent of4 resultswithin the time period is included. Result No growth in 5 days [facility] Specimen Blood - Line, Venous Performing Organization Address [facility] Phone Number [address] [address] [phone] CENTER Carcinoembryonic Antigen (CEA) (07/31/2018 4:06 PM PIER HAND HELPER) CEA, SERUM 1.9 0.0 - 5.0 ng/mL [facility] Specimen Blood Performing Organization Address [facility]/Zipcode Phone Number [address] [address] [phone] CENTER Ferritin (07/31/2018 4:05 PM PIER HAND HELPER) Ferritin 485 (H) 5 - 275 ng/mL [facility] Specimen Blood Performing Organization Address [facility] Phone Number [address] [address] [place] Vancomycin level, trough (07/31/2018 4:05 PM PIER HAND HELPER) Vancomycin Tr 40.6 (HH) 10.0 - 20.0 ug/mL [facility] Specimen Blood Performing Organization Address [facility] Phone Number [address] [address] CENTER urine ethyl glucuronide and ethyl sulfate (07/31/2018 3:51 PM PIER HAND HELPER) Scan Result [facility] Specimen Urine Narrative Performed At Performing Organization Address [facility] Phone Number [facility] [address] [place], [place] Urea Nitrogen, random urine (07/31/2018 12:40 PM PIER HAND HELPER) Urea Nitrogen, Ur 464 mg/dL [facility] Specimen Urine - Urine, Barrientos Narrative Performed At Reference Range: No Normals [facility] Performing Organization Address [facility] [place] [facility] Phone Number [address] [address] CENTER Sodium, random urine (07/31/2018 12:40 PM PIER HAND HELPER)Only the most recent of2 resultswithin the time period is included. Sodium Urine <20 meq/L [facility] Specimen Urine - Urine, Barrientos Narrative Performed At Reference Range: No Normals [facility] Performing Organization Address [facility] Phone Number [address] [address] CENTER Osmolality, urine (07/31/2018 12:40 PM PIER HAND HELPER)Only the most recent of2 resultswithin the time period is included. Osmolality, Ur 379 40-1,400 mOsm/kg [facility] Specimen Urine - Urine, Barrientos Performing Organization Address [facility] Phone Number [address] [address] [place] Osmolality, serum (07/31/2018 10:01 AM PIER HAND HELPER) Osmolality Serum 301 (H) 275 - 295 mOsm/kg [facility] Specimen Blood Performing Organization Address [facility] [place] [facility] Phone Number [address] [address] [place] Hepatic function panel (07/31/2018 10:01 AM PIER HAND HELPER) Protein, Total 5.1 (L) 6.0 - 8.3 gm/dL [facility] Albumin 2.5 (L) 3.5 - 5.0 g/dL [facility] Total Bilirubin 3.2 (H) 0.2 - 1.2 mg/dL [facility] Bilirubin, Direct 2.5 (H) 0.1 - 0.5 mg/dL [facility] Alkaline Phosphatase 72 40 - 150 U/L [facility] AST 87 (H) 5 - 34 U/L [facility] ALT 51 6 - 55 U/L [facility] Specimen Blood Narrative Performed At Specimen slightly icteric [facility] Performing Organization Address [facility] Phone Number [address] [address] [phone] [place] Blood gas, arterial (07/31/2018 6:54 AM PIER HAND HELPER)Only the most recent of5 resultswithin the time period is included. pH, Arterial 7.35 7.35 - 7.45 [facility] pCO2, Arterial 36 35 - 45 mmHg [facility] pO2, Arterial 140 (H) 80 - 90 mmHg [facility] O2 Sat, Arterial 98.7 (H) 96.0 - 97.0 % [facility] HCO3, Arterial 19 (L) 21 - 29 mmol/L [facility] Base Excess, Arterial -5.6 (L) -2.0 - 3.0 mmol/L [facility] Patient Temperature 37.0 C [facility] FIO2 21.0 % [facility] Specimen Blood, Arterial Performing Organization Address City/[facility]/Zipcode Phone Number [address] [address] [phone] [place] Albumin (07/31/2018 3:46 AM PIER HAND HELPER) Albumin 2.6 (L) 3.5 - 5.0 g/dL [facility] Specimen Blood Performing Organization Address City/[facility] Phone Number [address] [address] [place] 2D Echo W/Doppler(CW/PW/Color) (07/30/2018 3:56 PM PIER HAND HELPER) Ejection Fraction [facility] Narrative Performed At Transthoracic Echocardiography Report (TTE) [facility] Demographics Patient NamePERRY, MARKDate of Study07/30/2018 Gender Male Visit [id number] Race Unknown [id number] Number Date of 1960 Referring PhysicianYanira Guajardo NP Age 58 year(s) SonographerBud Martin Interpreting Ck Smith MD Physician FellowGenia Marx Procedure Type of Study TTE procedure:2DECHO W DOPPLER(CW/PW/COLOR) (STAT) Indications:Sepsis. Clinical History HGB 17.8 HCT 50.7 % CIRRHOSIS FORMER SMOKER ATOH ABUSE ACUTE RENAL FAILURE Contrast Medium: Definity. Height: 72 inches Weight: 110.68 kg (244 lbs) BSA: 2.32 m^2 BMI: 33.09 kg/m^2 HR: 107 bpm BP: 146/11 mmHg Summary 1. Normal LV size and function. LVEF is > 60%. Mild concentric LVH noted. 2. Diastology: Grade 1 diastolic dysfunction noted 3. Normal RV size and function 4. No significant valvular heart disease 5. Unable to estimate PASP 6. No pericardial effusion noted Previous Study No previous study is available for comparison. Signature Findings Technical Quality: Technically adequate exam. Rhythm/BPRegular sinus rhythm during the exam. Left Ventricle The LV endocardium is adequately visualized. The le ft ventricle is chamber size (by vol index) is sm all. Mild- concentric LV hypertrophy. All of the LV segments contract normally . LVEF by Dyer's me thod of disk assessment is normal (>60%) . Grade 1 diastolic dysfunction (impaired relaxation and lo w-normal LA pressure). Left AtriumNormal size left atrium. Right VentricleRV chamber size is normal . Gl obal RV systolic function is hyperdynamic. Right Atrium RA size is normal. Atrial SeptumNormal interatrial septum by available views. Aortic Valve Normal AoV structure and function by limited views an d Doppler. Mitral Valve Normal MV structure and function by available views an d Doppler. Tricuspid ValveNormal TV structure and function by available views an d Doppler. Un able to estimate peak systolic PA pressure; in adequate TR velocity signal. Pulmonic Valve Normal PV structure and function by limited views an d Doppler. A trace of pulmonary regurgitation. AortaAortic root size (SInus of Valsalva diameter) is no rmal . Th e aortic sinotubular junction appears normal . PericardiumNo significant pericardial effusion is visualized. IVC/SVC/PA/PV/PleuralThe inferior vena cava is not visualized. Chambers/Structures Left Atrium LA Volume: 41.24 ml LA Area: 17.33 cm^2 LA Vol. Index: 18 ml/m^2 Left Ventricle LVIDd: 4.44 cm LVEDV:63.77 ml LVIDs: 2.59 cm LVESV:18.32 ml LV Septum Diastolic: 1.47 cm LVEF 2D Cube: 67.8 % LV Septum Systolic: 1.38 cm LV PW Diastolic: 1.7 cmLV FS: 41.7 % LV PW Systolic: 1.41 cm LVEDV Dyer's:60.43 ml LVEDVI: 26 ml/m^2 LVESV Dyer's:23.32 ml LVESVI: 10 ml/m^2 LVEF Dyer's: 61.4 % LVOT Diameter: 1.99 cm LVEF: 71.3 % Aorta Ao Root S of Awa.: 3.[address] Junction: 3.14 cm Doppler/Quantitative Measurements Mitral Valve MV Peak E-Wave: 0.45 m/sMV Peak A-Wave: 0.7 m/s E/A Ratio: 0.65 Peak Gradient: 0.82 mmHg Deceleration Time: 403.5 msec MV Diaz. Peak: Tissue Doppler E' Septal Velocity: 0.04 m/sA' Septal Velocity: 0.08 m/s E' Lateral Velocity: 0.09 m/s A' Lateral Velocity: 0.09 m/s E/E': 11.28 Aortic Valve Peak Velocity: 1.45 m/sMean Velocity: 0.99 m/s Peak Gradient: 8.37 mmHg Mean Gradient: 4.57 mmHg AV Area (continuity): 2.59 cm^2 AV VTI: 21.77 cm AV DVI: 0.83 LVOT Peak Velocity: 1.24 m/s Peak Gradient: 6.19 mmHg Mean Velocity: 0.88 m/s Mean Gradient: 3.58 mmHg LVOT Diameter: 1.99 cmLVOT VTI: 18.12 cm LVOT Area: 3.11 cm^2LVOT SV:56.33 ml LVOT CO: 6.03 l/min LVOT CI: 2.6 l/min/m^2 RVOT RVOT VTI (PW): 17.05 cm Pulmonic Valve Peak Velocity: 1.14 m/s Peak Gradient: 5.23 mmHg Mean Velocity: 0.75 m/s Mean Gradient: 2.25 mmHg Procedure Note Interface, External Ris In - 07/31/2018 3:19 PM [facility] [employer] HELPER Transthoracic Echocardiography Report (TTE) Demographics Patient Name DENISHA GAN Date of Study 07/30/2018 Gender Male Visit Number [id number] Race Unknown Room Number 7A09 Number Date of 1960 Referring Physician Yanira Guajardo NP Age 58 year(s) Operations Manager Station Bud Martin Interpreting Ck Smith MD Physician Fellow Genia Marx Procedure Type of Study TTE procedure:2DECHO W DOPPLER(CW/PW/COLOR) (STAT) Indications:Sepsis. Clinical History HGB 17.8 HCT 50.7 % CIRRHOSIS FORMER SMOKER ATOH ABUSE ACUTE RENAL FAILURE Contrast Medium: Definity. Height: 72 inches Weight: 110.68 kg (244 lbs) BSA: 2.32 m^2 BMI: 33.09 kg/m^2 HR: 107 bpm BP: 146/11 mmHg Summary 1. Normal LV size and function. LVEF is > 60%. Mild concentric LVH noted. 2. Diastology: Grade 1 diastolic dysfunction noted 3. Normal RV size and function 4. No significant valvular heart disease 5. Unable to estimate PASP 6. No pericardial effusion noted Previous Study No previous study is available for comparison. Signature Findings Technical Quality: Technically adequate exam. Rhythm/BP Regular sinus rhythm during the exam. Left Ventricle The LV endocardium is adequately visualized. The left ventricle is chamber size (by vol index) is small. Mild- concentric LV hypertrophy. All of the LV segments contract normally . LVEF by Dyer's method of disk assessment is normal (>60%) . Grade 1 diastolic dysfunction (impaired relaxation and low-normal LA pressure). Left Atrium Normal size left atrium. Right Ventricle RV chamber size is normal . Global RV systolic function is hyperdynamic. Right Atrium RA size is normal. Atrial Septum Normal interatrial septum by available views. Aortic Valve Normal AoV structure and function by limited views and Doppler. Mitral Valve Normal MV structure and function by available views and Doppler. Tricuspid Valve Normal TV structure and function by available views and Doppler. Unable to estimate peak systolic PA pressure; inadequate TR velocity signal. Pulmonic Valve Normal PV structure and function by limited views and Doppler. A trace of pulmonary regurgitation. Aorta Aortic root size (SInus of Valsalva diameter) is normal . The aortic sinotubular junction appears normal . Pericardium No significant pericardial effusion is visualized. IVC/SVC/PA/PV/Pleural The inferior vena cava is not visualized. Chambers/Structures Left Atrium LA Volume: 41.24 ml LA Area: 17.33 cm^2 LA Vol. Index: 18 ml/m^2 Left Ventricle LVIDd: 4.44 cm LVEDV:63.77 ml LVIDs: 2.59 cm LVESV:18.32 ml LV Septum Diastolic: 1.47 cm LVEF 2D Cube: 67.8 % LV Septum Systolic: 1.38 cm LV PW Diastolic: 1.7 cm LV FS: 41.7 % LV PW Systolic: 1.41 cm LVEDV Dyer's:60.43 ml LVEDVI: 26 ml/m^2 LVESV Dyer's:23.32 ml LVESVI: 10 ml/m^2 LVEF Dyer's: 61.4 % LVOT Diameter: 1.99 cm LVEF: 71.3 % Aorta Ao Root S of Awa.: 3.[address] Junction: 3.14 cm Doppler/Quantitative Measurements Mitral Valve MV Peak E-Wave: 0.45 m/s MV Peak A-Wave: 0.7 m/s E/A Ratio: 0.65 Peak Gradient: 0.82 mmHg Deceleration Time: 403.5 msec MV Diaz. Peak: Tissue Doppler E' Septal Velocity: 0.04 m/s A' Septal Velocity: 0.08 m/s E' Lateral Velocity: 0.09 m/s A' Lateral Velocity: 0.09 m/s E/E': 11.28 Aortic Valve Peak Velocity: 1.45 m/s Mean Velocity: 0.99 m/s Peak Gradient: 8.37 mmHg Mean Gradient: 4.57 mmHg AV Area (continuity): 2.59 cm^2 AV VTI: 21.77 cm AV DVI: 0.83 LVOT Peak Velocity: 1.24 m/s Peak Gradient: 6.19 mmHg Mean Velocity: 0.88 m/s Mean Gradient: 3.58 mmHg LVOT Diameter: 1.99 cm LVOT VTI: 18.12 cm LVOT Area: 3.11 cm^2 LVOT SV:56.33 ml LVOT CO: 6.03 l/min LVOT CI: 2.6 l/min/m^2 RVOT RVOT VTI (PW): 17.05 cm Pulmonic Valve Peak Velocity: 1.14 m/s Peak Gradient: 5.23 mmHg Mean Velocity: 0.75 m/s Mean Gradient: 2.25 mmHg Performing Organization Address City/State/Zipcode Phone Number [facility] (Hemogram only) (07/30/2018 2:36 PM [facility] [employer] HELPER) WBC 15.2 (H) 3.5 - 10.5 K/L [facility] RBC 4.91 4.63 - 6.08 M/L [facility] Hemoglobin 15.6 13.7 - 17.5 GM/DL [facility] Hematocrit 45.6 40.1 - 51.0 % [facility] MCV 92.9 (H) 79.0 - 92.2 fL [facility] MCH 31.8 25.7 - 32.2 pg [facility] MCHC 34.2 32.3 - 36.5 GM/DL [facility] RDW 15.0 (H) 11.6 - 14.4 % [facility] Platelets 119 (L) 150 - 450 K/CU MM [facility] MPV 11.0 9.4 - 12.4 fL [facility] nRBC 0 0 - 0 /100 WBC [facility] Specimen Blood Performing Organization Address City/State/Zipcode Phone Number [facility] [address] [place] [address] CENTER Tissue Exam (07/30/2018 11:01 AM [employer] HAND HELPER) Case Report Surgical Pathology Report Case: [id number] [facility] Authorizing Provider:Anjel Moya MDCollected: 07/30/2018 1101 [facility] Ordering Location: [address] [place]: 08/01/2018 0842 Pathologist: Bel Cid MD Specimens: A) - Small Bowel, NOS B) - Biopsy, Liver, Liver Mass DIAGNOSIS THIS FINAL REPORT IS ISSUED TO REPORT THE RESULT OF IMMUNOHISTOCHEMICAL STAIN ARGINASE ON SPECIMEN B AND CORRECT TYPOGRAFICAL ERROR IN THE FINAL DIAGNOSIS OF SPECIMEN A: [facility] A. SMALL BOWEL, RESECTION - TRANSMURAL NECROSIS WITH SURFACE ULCERATION, SEVERE SEROSITIS AND ABSCESSES - PERFORATION SEEN GROSSLY - THROMBI IN THE MESEMTERIC VESSELS AND VESSELS IN THE SMALL BOWEL WALL - SEROSITIS AND FAT NECROSIS AT THE SURGICAL MARGINS - THREE BENIGN LYMPH NODES (0/2) - NEGATIVE FOR DYSPLASIA OR MALIGNANCY B. LIVER, INTRAOPERATIVE BIOPSIES OF MASS - HEPATOCELLULAR CARCINOMA, MODERATELY TO POORLY DIFFERENTIATED - TUMOR NECROSIS PRESENT - BACKGROUND LIVER WITH FEATURES SUGGESTIVE OF CIRRHOSIS - see comment Signing Pathologist Direct Phone Line: [phone] COMMENT The tumor cells are positive for Hepar-1 and CK19. CK7 is negative. The morphology and immunohistochemical profile is consistent with a hepatocellular carcinoma (HCC). Presence of poor differentiation ( [facility] based on morphology) and CK 19 immunoexpression is associated with poor prognosis (see ref.). Arginase immunostain is positive, confirming the diagnosis of hepatocellular carcinoma. [facility] Reference: Pb T et al. Cytokeratin 19 expression in hepatocellular carcinoma predicts early postoperative recurrence. Cancer Sci. 2003 Mar;94(10):851-857. Intradepartmental consultation on specimen B: Dr. Krystin Connelly CPT Code(s) 85821y4; 60640; 67717 x 3; 22314 [facility] CLINICAL HISTORY Perforated bowel [facility] SPECIMEN SOURCE A. Small bowel. B. Liver biopsy [facility] GROSS DESCRIPTION Specimen is received in two parts labeled with the patient' s information and accession number. [facility] Specimen A: Received in formalin labeled "small bowel" and consists of a cylindrical segment of small bowel 61 cm in length and 3 cm in diameter, with 60 x 2 x 1.5 cm of attached mesenteric fat. The ser osal surface is diffusely dusky, including at both margins. A full-thickness bowel wall perforation, 1 x 0.5 cm, is located 30 cm from arbitrarily designated margin 1 and 31 cm from arbitrarily designat ed margin 2. The serosa and mesenteric fat in area of the perforation are firm with a purulent exudate. The specimen is opened to reveal diffusely dusky bowel mucosa with the expected folds. Purulent material is present in the region of the full- thickness perforation. No other masses or lesions are grossl y identified. The surrounding soft tissues are evaluated for lymph nodes and yield three candidate nodes ranging from 0.2 to 0.6 cm in greatest dimension. [employer] sections are submitted as follows: A1, arbitrarily designated margin 1; A2, arbitrarily designated margin 2; A3, food service representative mesenteric margin, en face; A4-A5, food service representative full-thic kness perforation; A6, A7, food service representative purulent areas proximal to perforation; A8-A9, food service representative bowel wall; A10, soft tissue is area of perforation; A11, three candidate lymph nodes, whole. Specimen B: Received in formalin labeled "liver biopsy" consists of two cylindrical cores of uclver-white soft tissue measuring 0.1 cm in diameter and 1.1 and 1.2 cm in length, respectively. The specimen i s submitted in its entirety in cassette B1. BASIL/leisa MICROSCOPIC DESCRIPTION A-B. Performed. [facility] B. Section shows liver parenchyma with moderately to poorly differentiated hepatocellular carcinoma with foci of tumoral necrosis. Reticulin stain shows loss of reticulin network in the tumor. Immunosta ins were performed with appropriate controls and show tumor to be positive for hepar and CK19. The tumor is negative for CK7. Section shows liver parenchyma with extensive/expansile fibrosis with marked cholangiolar proliferation. Few nodules of preserved non-neoplastic hepatocytes are seen. These features are suggestive of cirrhosis with parenchyma extinction foci. SPECIAL STUDIES The interpretation of this case included the use of immunohistochemistry or special stains. [facility] Hepar-1; CK7; CK19; Arginase ;[facility] Immunohistochemistry technical testing was performed at [facility], Pathology Laboratory where it was developed and its performance characteristics were determined. It has not be en cleared or approved by the U.S. Food and Drug Administration. The FDA has determined that such clearance or approval is not necessary. The test is used for clinical purposes. It should not be regarde d as investigational or for research. This laboratory is certified under the Clinical Laboratory Improvement Amendments of 1988 (CLIA-88) as qualified to perform high complexity clinical laboratory testing. Specimen Tissue - Small Bowel, NOS Performing Organization Address [facility] [place] Phone Number [address] [address] [place] Potassium-Stat Lab (07/30/2018 10:22 AM [facility]ER HAND HELPER) Potassium 3.3 (L) 3.6 - 5.5 meq/L [facility] Specimen Blood, Arterial Performing Organization Address [facility] [facility] [place] Phone Number [address] [address] [place] Sodium Na-Stat Lab (07/30/2018 10:22 AM [facility]ER HAND HELPER) Sodium 127 (L) 135 - 148 meq/L [facility] Specimen Blood, Arterial Performing Organization Address [facility] [place] Phone Number [address] [address] [phone] CENTER Glucose-Stat Lab (07/30/2018 10:22 AM PIER HAND HELPER) Glucose 93 70 - 110 mg/dL [facility] Specimen Blood, Arterial Performing Organization Address [facility]/Zipcode Phone Number [facility] [address] [place] [address] [place] HGB/HCT (H&H)-Stat Lab (07/30/2018 10:22 AM PIER HAND HELPER) Hemoglobin 14.6 13.0 - 16.8 g/dL [facility] Hematocrit 43.0 40.0 - 50.0 % [facility] Specimen Blood, Arterial Performing Organization Address [facility] Phone Number [address] [address] [place] Anaerobic culture (07/30/2018 9:40 AM PIER HAND HELPER) Result No anaerobes isolated [facility] Specimen Body Fluid - Peritoneal Fluid Performing Organization Address [facility] [place] Phone Number [address] [address] [place] Surgically obtained culture + gram stain (07/30/2018 9:40 AM PIER HAND HELPER) Result ESCHERICHIA COLI (A) [facility] Gram Stain Result <1+ White blood cells seen [facility] Gram Stain Result No organisms seen [facility] Specimen Body Fluid - Peritoneal Fluid Organism Antibiotic Method Susceptibility Escherichia coli Amikacin <=2: Susceptible Escherichia coli Ampicillin + Sulbactam 8: Susceptible Escherichia coli Aztreonam <=1: Susceptible Escherichia coli Cefepime <=1: Susceptible Escherichia coli Cefoxitin <=4: Susceptible Escherichia coli Ceftazidime <=1: Susceptible Escherichia coli Ceftriaxone <=1: Susceptible Escherichia coli Ertapenem <=0.5: Susceptible Escherichia coli Gentamicin <=1: Susceptible Escherichia coli Levofloxacin <=0.12: Susceptible Escherichia coli Meropenem <=0.25: Susceptible Escherichia coli Piperacillin + Tazobactam <=4: Susceptible Escherichia coli Tetracycline <=1: Susceptible Escherichia coli Tobramycin <=1: Susceptible Escherichia coli Trimethoprim + Sulfamethoxazole <=20: Susceptible Performing Organization Address [facility] Phone Number [facility] [address] [place] [address] CENTER Prepare Leuko-Red RBC (07/30/2018 7:53 AM PIER HAND HELPER) CROSSMATCH COMPATIBLE SAFETRACE TX Unit ABO A Pos SAFETRACE TX UNIT NUMBER [id number] SAFETRACE TX Status READY SAFETRACE TX Blood Bank Product RED BLOOD CELLS SAFETRACE TX PRODUCT CODE [id number] SAFETRACE TX CROSSMATCH COMPATIBLE SAFETRACE TX Unit ABO A Pos SAFETRACE TX UNIT NUMBER [id number] SAFETRACE TX Status READY SAFETRACE TX Blood Bank Product RED BLOOD CELLS SAFETRACE TX PRODUCT CODE [id number] SAFETRACE TX Specimen Other Performing Organization Address City/[facility] Phone Number SAFETRACE TX ABORH, manual (07/30/2018 6:09 AM PIER HAND HELPER)Only the most recent of2 resultswithin the time period is included. ABO Grouping A [facility] Rh Factor POS [facility] Specimen Blood Performing Organization Address [facility] [facility] [place] Phone Number [facility] [address] [place], [place] [phone] Blood gas, venous (07/30/2018 6:09 AM PIER HAND HELPER) pH, Zachary 7.37 7.32 - 7.42 [facility] pCO2, Zachary 33 (L) 41 - 51 mmHg [facility] pO2, Zachary 62 (H) 25 - 40 mmHg [facility] O2 Sat, Zachary 92.6 (H) 40.0 - 70.0 % [facility] HCO3, Zachary 19 (L) 21 - 29 mmol/L [facility] Base Excess, Zachary -5.5 (L) -2.0 - 3.0 mmol/L [facility] Patient Temperature 36.0 C [facility] FIO2 100.0 % [facility] Specimen Blood Performing Organization Address City/[facility]/Zipcode Phone Number [facility] [address] [place] [address] CENTER XR abdomen / KUB 1 view (07/30/2018 5:29 AM PIER HAND HELPER) Narrative Performed At FINAL REPORT [facility] CLINICAL HISTORY: abdominal distension/ NGT placement TECHNIQUE: RAD, ABDOMEN/KUB, 1 VIEW AP COMPARISON: None IMPRESSION: Nasogastric tube is seen overlying the gastric body. Multiple air-filled distended loops of bowel in the central abdomen measuring up to 6.0 cm which may be related to obstruction versus ileus. Recommend further evaluation with dedicated CT of the pelvis. Visualized osseous structures are unremarkable. Signed: Zafar Austin MD Report Verified Date/Time:07/30/2018 06:03:17 Reading Location: [address] Transitional Reading Room Procedure Note Interface, External Ris In - 07/30/2018 6:05 AM PIER HAND HELPER FINAL REPORT CLINICAL HISTORY: abdominal distension/ NGT placement TECHNIQUE: RAD, ABDOMEN/KUB, 1 VIEW AP COMPARISON: None IMPRESSION: Nasogastric tube is seen overlying the gastric body. Multiple air-filled distended loops of bowel in the central abdomen measuring up to 6.0 cm which may be related to obstruction versus ileus. Recommend further evaluation with dedicated CT of the pelvis. Visualized osseous structures are unremarkable. Signed: Zafar Austin MD Report Verified Date/Time: 07/30/2018 06:03:17 Reading Location: [address] Transitional Reading Room Performing Organization Address [facility] [place] Phone Number [facility] Procalcitonin (07/30/2018 4:56 AM PIER HAND HELPER) Procalcitonin 9.52 (H) <0.05 ng/mL [facility] Specimen Blood Narrative Performed At SEPSIS RISK (ng/mL) [facility] Low:0.05-0.50 Intermediate: 0.51-2.00 High: >=2.01 Performing Organization Address [facility] Phone Number [facility] [address] [place], [place] [phone] CENTER Antibody screen (07/30/2018 4:56 AM PIER HAND HELPER) Ab Scrn NEGATIVEComment: Tube by PEG [facility] Specimen Blood Performing Organization Address City/[facility]/Zipcode Phone Number [facility] [address] [place] [address] Blood Culture Panel(BioFire) (07/30/2018 4:39 AM PIER HAND HELPER)Only the most recent of2 resultswithin the time period is included. LISTERIA MONOCYTOGENES Not detected Not detected [facility] STAPHYLOCOCCUS Not detected Not detected [facility] STAPHYLOCOCCUS AUREUS Not detected Not detected [facility] Streptococcus Not detected Not detected [facility] STREPTOCOCCUS AGALACTIAE (GROUP B) Not detected Not detected [facility] STREPTOCOCCUS PNEUMONIAE Not detected Not detected [facility] Streptococcus pyogenes (Group A) Not detected Not detected [facility] ACINETOBACTER BAUMANNII Not detected Not detected [facility] HAEMOPHILUS INFLUENZAE Not detected Not detected [facility] NEISSERIA MENINGITIDIS Not detected Not detected [facility] ENTEROBACTERIACEAE Not detected Not detected [facility] ENTEROBACTER CLOACOE COMPLEX Not detected Not detected [facility] KLEBSIELLA OXYTOCA Not detected Not detected [facility] KLEBSIELLA PNEUMONIAE Not detected Not detected [facility] PROTEUS Not detected Not detected [facility] SERRATIA MARCESCENS Not detected Not detected [facility] NIKITA ALBICANS Not detected Not detected [facility] NIKITA GLABRATA Not detected Not detected [facility] NIKITA JUSTIN Not detected Not detected [facility] NIKITA PARAPSILOSIS Not detected Not detected [facility] NIKITA TROPICALIS Not detected Not detected [facility] ESCHERICHIA COLI Not detected Not detected [facility] METHICILLIN-RESISTANCE GENE Not detected [facility] VANCOMYCIN-RESISTANCE GENE Not detected [facility] CARBAPENEM-RESISTANCE GENE Not detected [facility] ENTEROCOCCUS Not detected Not detected [facility] PSEUDOMONAS AERUGINOSA Not detected Not detected [facility] Specimen Blood - Arm, Left Narrative Performed At Other bacteria and resistance markers not [facility] targeted by this PCR panel cannot be excluded; therefore clinical correlation and follow up of serology, culture results, and other molecular studies is required. The results are not intended to be used as the sole means for clinical diagnosis or patient management decisions. This sample was tested at the [facility] Molecular Diagnostics Laboratory using the [employer] Blood Culture ID Panel. It is FDA cleared and has been verified and approved by the [facility] Molecular Diagnostics Laboratory for clinical use. This laboratory is CLIA-certified and [employer] (CAP)-accredited to perform high complexity testing. Performing Organization Address City/State/Zipcode Phone Number [address] [address] CENTER Lipase (07/30/2018 4:29 AM PIER HAND HELPER) Lipase 86 (H) 8 - 78 U/L [facility] Specimen Blood Narrative Performed At Specimen slightly icteric [facility] Performing Organization Address City/State/Zipcode Phone Number [address] [address] CENTER Amylase (07/30/2018 4:29 AM PIER HAND HELPER) Amylase 59Comment: Specimen slightly 25 - 125 U/L [facility] hemolyzed [facility] Specimen Blood Narrative Performed At Specimen slightly icteric [facility] Performing Organization Address City/[facility]/Zipcode Phone Number [facility] [address] [place] [address] CENTER after 08/14/2017 Insurance Payer Benefit Plan / Subscriber ID Type Phone Address Group MEDICAID - MEDICAID [place] [facility] [employer] xxxxxxxxx Medicaid Contracted MGD CARE PLAN Advance Directives For more information, please contact:[facility] [place], [place] [phone] Code Status Date Activated Date Inactivated Comments Full Code 07/30/2018 4:23 AM 08/11/2018 8:20 PM This code status was determined by: Patient
--- OUTSIDE RECORDS SUMMARY | 2018-08-15 13:52 | XMS REPORT ---
:1960 [facility] [address] [place] [address] [address] [place] [address] Care Team Providers Name Role Phone LENIN COKER Unavailable Unavailable Problems This patient has no known problems. Allergies, Adverse Reactions, Alerts This patient has no known allergies or adverse reactions. Medications This patient has no known medications. Results Test Description Test Time Test Comments Text Results Atomic Results Result Comments BODY FLUID CULTURE + GRAM STAIN 2018-08-13 09:23:00 Test Item Value Reference Range Comments CULTURE (BEAKER) (test bsni=6105) No growth GRAM STAIN RESULT (BEAKER) (test lumc=3366) <1+ WBCs GRAM STAIN RESULT (BEAKER) (test rtrn=47452) No organisms seen POCT-GLUCOSE [id number] 17:45:00 Test Item Value Reference Range Comments POC-GLUCOSE METER (BEAKER) 163 mg/dL 70-110 TESTED AT [facility] [address] [facility] (test mrnw=0773) [facility] [address] POCT-GLUCOSE [id number] 09:37:00 Test Item Value Reference Range Comments POC-GLUCOSE METER (BEAKER) 171 mg/dL 70-110 TESTED AT [address] (test xzgt=4388) [facility] [address] CALCIUM, [id number] 06:36:00 Test Item Value Reference Range Comments CALCIUM IONIZED (BEAKER) (test yyif=891) 0.97 mmol/L 1.12-1.27 PH, BLOOD (BEAKER) (test eotj=7346) 7.40 COMPREHENSIVE METABOLIC [id number] 05:58:00 Test Item Value Reference Range Comments TOTAL PROTEIN (BEAKER) 5.9 gm/dL 6.0-8.3 (test fvxs=753) ALBUMIN (BEAKER) (test 2.0 g/dL 3.5-5.0 mwci=9394) ALKALINE PHOSPHATASE 153 U/L 40-150 (BEAKER) (test usdv=819) BILIRUBIN TOTAL (BEAKER) 1.4 mg/dL 0.2-1.2 (test ljov=861) SODIUM (BEAKER) (test 135 meq/L 136-145 idjo=090) POTASSIUM (BEAKER) (test 3.8 meq/L 3.5-5.1 zeff=915) CHLORIDE (BEAKER) (test 107 meq/L 98-107 kdkr=612) CO2 (BEAKER) (test 24 meq/L 22-29 orln=778) BLOOD UREA NITROGEN 27 mg/dL 7-21 (BEAKER) (test wtym=078) CREATININE (BEAKER) (test 1.15 mg/dL 0.57-1.25 wtcv=848) GLUCOSE RANDOM (BEAKER) 107 mg/dL 70-105 (test lmnu=374) CALCIUM (BEAKER) (test 7.8 mg/dL 8.4-10.2 jvnj=167) AST (SGOT) (BEAKER) (test 66 U/L 5-34 utpq=367) ALT (SGPT) (BEAKER) (test 29 U/L 6-55 czhj=152) EGFR (BEAKER) (test 66 mL/min/1.73 sq m ESTIMATED GFR IS NOT zgxm=6083) ACCURATE CREATININE CLEARANCE IN PREDICTING GLOMERULAR FILTRATION RATE. ESTIMATED GFR IS NOT APPLICABLE FOR DIALYSIS PATIENTS. [id number] 05:57:00 Test Item Value Reference Range Comments PHOSPHORUS (BEAKER) (test qsbb=424) 3.1 mg/dL 2.3-4.7 [id number] 05:57:00 Test Item Value Reference Range Comments MAGNESIUM (BEAKER) (test qmul=985) 1.7 mg/dL 1.6-2.6 BILIRUBIN, [id number] 05:57:00 Test Item Value Reference Range Comments BILIRUBIN DIRECT (BEAKER) (test nwud=922) 1.1 mg/dL 0.1-0.5 [id number] 05:43:00 Test Item Value Reference Range Comments PROTIME (BEAKER) (test rpok=077) 16.4 seconds 11.7-14.7 INR (BEAKER) (test dbxu=069) 1.3 <=5.9 PARTIAL THROMBOPLASTIN TIME (BEAKER) (test 37.4 seconds 22.5-36.0 cidt=973) RECOMMENDED COUMADIN/WARFARIN INR THERAPY RANGESSTANDARD DOSE: 2.0 - 3.0 Includes: PROPHYLAXIS forvenous thrombosis, systemic embolization; TREATMENT for venous thrombosis and/or pulmonary embolus.HIGH RISK: Target INR is 2.5-3.5 for patients with mechanical heart valves.CBC W/PLT COUNT & AUTO [id number] 05:27:00 Test Item Value Reference Range Comments WHITE BLOOD CELL COUNT (BEAKER) (test ulht=059) 6.4 K/ L 3.5-10.5 RED BLOOD CELL COUNT (BEAKER) (test csox=028) 3.34 M/ L 4.63-6.08 HEMOGLOBIN (BEAKER) (test lkaj=896) 10.6 GM/DL 13.7-17.5 HEMATOCRIT (BEAKER) (test syfd=509) 31.9 % 40.1-51.0 MEAN CORPUSCULAR VOLUME (BEAKER) (test phqz=669) 95.5 fL 79.0-92.2 MEAN CORPUSCULAR HEMOGLOBIN (BEAKER) (test 31.7 pg 25.7-32.2 mowe=298) MEAN CORPUSCULAR HEMOGLOBIN CONC (BEAKER) (test 33.2 GM/DL 32.3-36.5 hxkl=483) RED CELL DISTRIBUTION WIDTH (BEAKER) (test 18.6 % 11.6-14.4 rnsb=580) PLATELET COUNT (BEAKER) (test cccv=840) 104 K/CU MM 150-450 MEAN PLATELET VOLUME (BEAKER) (test jsvl=254) 11.6 fL 9.4-12.4 NUCLEATED RED BLOOD CELLS (BEAKER) (test 0 /100 WBC 0-0 irqm=054) NEUTROPHILS RELATIVE PERCENT (BEAKER) (test 78 % kslt=115) LYMPHOCYTES RELATIVE PERCENT (BEAKER) (test 10 % sjig=148) MONOCYTES RELATIVE PERCENT (BEAKER) (test 10 % simu=767) EOSINOPHILS RELATIVE PERCENT (BEAKER) (test 1 % pucu=106) BASOPHILS RELATIVE PERCENT (BEAKER) (test 0 % teoj=819) NEUTROPHILS ABSOLUTE COUNT (BEAKER) (test 5.01 K/ L 1.78-5.38 sojo=298) LYMPHOCYTES ABSOLUTE COUNT (BEAKER) (test 0.64 K/ L 1.32-3.57 nvqx=483) MONOCYTES ABSOLUTE COUNT (BEAKER) (test 0.61 K/ L 0.30-0.82 ftbt=658) EOSINOPHILS ABSOLUTE COUNT (BEAKER) (test 0.08 K/ L 0.04-0.54 oegg=610) BASOPHILS ABSOLUTE COUNT (BEAKER) (test 0.02 K/ L 0.01-0.08 rbrr=313) IMMATURE GRANULOCYTES-RELATIVE PERCENT (BEAKER) 1 % 0-1 (test luir=5927) POCT-GLUCOSE [id number] 22:04:00 Test Item Value Reference Range Comments POC-GLUCOSE METER (BEAKER) 161 mg/dL 70-110 TESTED AT [address] (test diag=4368) [place] [address] BODY FLUID CELL COUNT WITH [id number] 19:27:00 Test Item Value Reference Range Comments APPEARANCE FLUID (BEAKER) (test jlxh=655) Cloudy Clear COLOR FLUID (BEAKER) (test bqdb=483) Gary Colorless, Straw RBC FLUID (BEAKER) (test izvv=844) [address] /cu mm <=1 ADJUSTED WBC FLUID (BEAKER) (test tyaa=9661) 240 /cu mm <=5 LINING CELLS (BEAKER) (test kxbz=8900) 0 /cu mm <=1 NEUTROPHILS FLUID (BEAKER) (test dncb=6061) 22 % LYMPHS FLUID (BEAKER) (test zgjr=813) 43 % MONO/MACROPHAGE FLUID (BEAKER) (test xkki=004) 35 % EOSINOPHILS FLUID (BEAKER) (test jzza=338) 0 % BASO FLUID (BEAKER) (test bgna=392) 0 % CONTAINER BODY FLUID (BEAKER) (test wqkt=6950) EDTA Tube POCT-GLUCOSE [id number] 17:03:00 Test Item Value Reference Range Comments POC-GLUCOSE METER (BEAKER) 113 mg/dL 70-110 TESTED AT [address] (test gjdt=1045) [place] [address] U/S, [id number] 16:04:00Reason for exam:->ascitesFINAL REPORT PROCEDURE: Ultrasound-guided paracentesis. INDICATION: 58 -year-old man with ascites. DESCRIPTION: After obtaining informed written consent, ultrasound scan of the abdomen identified ascites in the right lower quadrant. The overlying skin was prepped and draped in the usual, sterile fashion and local 1% lidocaine anesthesia was administered. A 5 Iraqi catheter was advanced into the peritoneal cavity and 1200 cc of serosanguineous fluid was removed. The catheter was removed without immediate complication. Samples were sent for analysis. IMPRESSION:Uncomplicated ultrasound-guided paracentesis with 1200 cc fluid removed. Signed: Efren Rosas MDReport Verified Date/Time : 08/10/2018 16:04:03 Reading Location: [facility] P006J Ultrasound Reading Room POCT- GLUCOSE [id number] 09:25:00 Test Item Value Reference Range Comments POC-GLUCOSE METER (BEAKER) 168 mg/dL 70-110 TESTED AT [facility] [address] [facility] (test bxmj=9497) [facility] [address] COMPREHENSIVE METABOLIC [id number] 06:37:00 Test Item Value Reference Range Comments TOTAL PROTEIN (BEAKER) 6.2 gm/dL 6.0-8.3 (test tidb=499) ALBUMIN (BEAKER) (test 2.1 g/dL 3.5-5.0 bdhg=4179) ALKALINE PHOSPHATASE 134 U/L 40-150 (BEAKER) (test exwq=964) BILIRUBIN TOTAL (BEAKER) 2.1 mg/dL 0.2-1.2 (test nxlg=281) SODIUM (BEAKER) (test 134 meq/L 136-145 tcki=981) POTASSIUM (BEAKER) (test 4.1 meq/L 3.5-5.1 nkda=072) CHLORIDE (BEAKER) (test 106 meq/L 98-107 ynmg=878) CO2 (BEAKER) (test 23 meq/L 22-29 qjbh=630) BLOOD UREA NITROGEN 28 mg/dL 7-21 (BEAKER) (test rrmp=919) CREATININE (BEAKER) (test 1.10 mg/dL 0.57-1.25 uyff=379) GLUCOSE RANDOM (BEAKER) 92 mg/dL 70-105 (test vhne=827) CALCIUM (BEAKER) (test 7.8 mg/dL 8.4-10.2 vsfe=739) AST (SGOT) (BEAKER) (test 70 U/L 5-34 vzfw=988) ALT (SGPT) (BEAKER) (test 31 U/L 6-55 oaji=471) EGFR (BEAKER) (test 69 mL/min/1.73 sq m ESTIMATED GFR IS NOT quab=9395) ACCURATE CREATININE CLEARANCE IN PREDICTING GLOMERULAR FILTRATION RATE. ESTIMATED GFR IS NOT APPLICABLE FOR DIALYSIS PATIENTS. [id number] 06:33:00 Test Item Value Reference Range Comments PHOSPHORUS (BEAKER) (test qbkr=587) 3.4 mg/dL 2.3-4.7 [id number] 06:33:00 Test Item Value Reference Range Comments MAGNESIUM (BEAKER) (test rbmx=278) 1.7 mg/dL 1.6-2.6 BILIRUBIN, [id number] 06:33:00 Test Item Value Reference Range Comments BILIRUBIN DIRECT (BEAKER) (test htuv=874) 1.4 mg/dL 0.1-0.5 [id number] 06:19:00 Test Item Value Reference Range Comments PROTIME (BEAKER) (test wlod=745) 16.5 seconds 11.7-14.7 INR (BEAKER) (test tgoq=268) 1.3 <=5.9 PARTIAL THROMBOPLASTIN TIME (BEAKER) (test 36.9 seconds 22.5-36.0 jkek=297) RECOMMENDED COUMADIN/WARFARIN INR THERAPY RANGESSTANDARD DOSE: 2.0 - 3.0 Includes: PROPHYLAXIS forvenous thrombosis, systemic embolization; TREATMENT for venous thrombosis and/or pulmonary embolus.HIGH RISK: Target INR is 2.5-3.5 for patients with mechanical heart valves.CBC W/PLT COUNT & AUTO [id number] 06:10:00 Test Item Value Reference Range Comments WHITE BLOOD CELL COUNT (BEAKER) (test dswf=282) 8.1 K/ L 3.5-10.5 RED BLOOD CELL COUNT (BEAKER) (test fbyt=067) 3.70 M/ L 4.63-6.08 HEMOGLOBIN (BEAKER) (test udfg=043) 11.7 GM/DL 13.7-17.5 HEMATOCRIT (BEAKER) (test tgkd=789) 34.9 % 40.1-51.0 MEAN CORPUSCULAR VOLUME (BEAKER) (test hspy=925) 94.3 fL 79.0-92.2 MEAN CORPUSCULAR HEMOGLOBIN (BEAKER) (test 31.6 pg 25.7-32.2 uriu=044) MEAN CORPUSCULAR HEMOGLOBIN CONC (BEAKER) (test 33.5 GM/DL 32.3-36.5 mevv=956) RED CELL DISTRIBUTION WIDTH (BEAKER) (test 18.3 % 11.6-14.4 vplw=277) PLATELET COUNT (BEAKER) (test ztvy=013) 99 K/CU MM 150-450 MEAN PLATELET VOLUME (BEAKER) (test ketf=049) 11.4 fL 9.4-12.4 NUCLEATED RED BLOOD CELLS (BEAKER) (test 0 /100 WBC 0-0 cuhv=965) NEUTROPHILS RELATIVE PERCENT (BEAKER) (test 81 % zecr=695) LYMPHOCYTES RELATIVE PERCENT (BEAKER) (test 10 % syyy=434) MONOCYTES RELATIVE PERCENT (BEAKER) (test 7 % tluh=645) EOSINOPHILS RELATIVE PERCENT (BEAKER) (test 1 % ujyp=231) BASOPHILS RELATIVE PERCENT (BEAKER) (test 0 % bfwf=540) NEUTROPHILS ABSOLUTE COUNT (BEAKER) (test 6.55 K/ L 1.78-5.38 cgjk=746) LYMPHOCYTES ABSOLUTE COUNT (BEAKER) (test 0.81 K/ L 1.32-3.57 iedu=957) MONOCYTES ABSOLUTE COUNT (BEAKER) (test sjen=603) 0.60 K/ L 0.30-0.82 EOSINOPHILS ABSOLUTE COUNT (BEAKER) (test 0.05 K/ L 0.04-0.54 gogf=876) BASOPHILS ABSOLUTE COUNT (BEAKER) (test jzzn=231) 0.02 K/ L 0.01-0.08 IMMATURE GRANULOCYTES-RELATIVE PERCENT (BEAKER) 1 % 0-1 (test bbpy=8409) CALCIUM, [id number] 05:47:00 Test Item Value Reference Range Comments CALCIUM IONIZED (BEAKER) (test kbpj=835) 1.04 mmol/L 1.12-1.27 PH, BLOOD (BEAKER) (test sxic=2500) 7.37 POCT-GLUCOSE [id number] 22:28:00 Test Item Value Reference Range Comments POC-GLUCOSE METER (BEAKER) 143 mg/dL 70-110 TESTED AT [address] (test ufnc=0481) [facility] [address] POCT-GLUCOSE [id number] 18:35:00 Test Item Value Reference Range Comments POC-GLUCOSE METER (BEAKER) 137 mg/dL 70-110 TESTED AT [address] (test afyp=3351) [facility] [address] [id number] 18:22:00 Test Item Value Reference Range Comments MAGNESIUM (BEAKER) (test espn=840) 1.8 mg/dL 1.6-2.6 BONE AND/OR JOINT IMAGING, WHOLE [id number] 16:34:00FINAL REPORT PROCEDURE: BONE SCAN, WHOLE BODY CPT CODE: [id number] INDICATION: HCC PROTOCOL: 31.3 mCi of Tc-99m [...] abdomen on August 18, 2018.. S[facility]: [facility] Verified Date/Time: 08/09/2018 16:34:55 Reading Location: [address] Reading Room POCT-GLUCOSE [id number] 12:20:00 Test Item Value Reference Range Comments POC-GLUCOSE METER (BEAKER) 121 mg/dL 70-110 TESTED AT [address] (test msdy=3322) [facility] [address] [id number] 12:20:00Medical Cytology Report Case: [id number] Authorizing Provider: Anjel Moya MD Collected: 08/06/2018 1400 Ordering Location: [address] Received: 08/08/2018 0943 Service Pathologist: Nadege Busby MD Specimen: Peritoneal Fluid PERITONEAL FLUID (CYTOSPINS AND CELL BLOCK): - NEGATIVE FOR MALIGNANCY PREDOMINANTLY BLOOD; ACUTE INFLAMMATORY CELLS Signing Pathologist Direct Phone Line: [phone] , [phone], recently diagnosed with hepatocellular carcinoma(see [id number]) PERITONEAL [id number] mls orange; 4 cytospins, cell blockCollected: [id number]: [id number].[facility], Department of Pathology, [address] [place] [address], Tel [facility], [facility] of [facility], [address] [place] [address], QqvuujLos Angeles County [facility], Department of Pathology, [address] [place] [address], Tel DLOOD [id number] 11:41:00 Test Item Value Reference Range Comments CULTURE (BEAKER) From Anaerobic Bottle (test kcwj=6610) Only Eggerthella lenta GRAM STAIN RESULT From anaerobic bottle (BEAKER) (test only: gram positive padw=4639) rods BODY FLUID CULTURE + GRAM [id number] 08:58:00 Test Item Value Reference Range Comments CULTURE (BEAKER) (test txkm=8235) No growth GRAM STAIN RESULT (BEAKER) (test 2+ WBCs nnql=3507) GRAM STAIN RESULT (BEAKER) (test No organisms seen rqbl=04882) POCT-GLUCOSE [id number] 08:21:00 Test Item Value Reference Range Comments POC-GLUCOSE METER (BEAKER) 136 mg/dL 70-110 TESTED AT [address] (test njey=5627) [place] [address] [id number] 04:26:00 Test Item Value Reference Range Comments PHOSPHORUS (BEAKER) (test puce=912) 3.9 mg/dL 2.3-4.7 [id number] 04:26:00 Test Item Value Reference Range Comments MAGNESIUM (BEAKER) (test xcmo=736) 1.8 mg/dL 1.6-2.6 BILIRUBIN, [id number] 04:26:00 Test Item Value Reference Range Comments BILIRUBIN DIRECT (BEAKER) (test xoit=121) 1.4 mg/dL 0.1-0.5 COMPREHENSIVE METABOLIC [id number] 04:26:00 Test Item Value Reference Range Comments TOTAL PROTEIN (BEAKER) 5.8 gm/dL 6.0-8.3 (test jdlk=066) ALBUMIN (BEAKER) (test 2.1 g/dL 3.5-5.0 ftrx=2486) ALKALINE PHOSPHATASE 126 U/L 40-150 (BEAKER) (test bqei=593) BILIRUBIN TOTAL (BEAKER) 2.0 mg/dL 0.2-1.2 (test avnc=263) SODIUM (BEAKER) (test 134 meq/L 136-145 fdhz=687) POTASSIUM (BEAKER) (test 3.8 meq/L 3.5-5.1 fkdh=431) CHLORIDE (BEAKER) (test 104 meq/L 98-107 qkhy=655) CO2 (BEAKER) (test 25 meq/L 22-29 hyoz=694) BLOOD UREA NITROGEN 31 mg/dL 7-21 (BEAKER) (test boko=663) CREATININE (BEAKER) (test 1.17 mg/dL 0.57-1.25 frrp=498) GLUCOSE RANDOM (BEAKER) 110 mg/dL 70-105 (test orpr=490) CALCIUM (BEAKER) (test 7.7 mg/dL 8.4-10.2 oqpv=849) AST (SGOT) (BEAKER) (test 59 U/L 5-34 qlit=121) ALT (SGPT) (BEAKER) (test 28 U/L 6-55 whlx=808) EGFR (BEAKER) (test 64 mL/min/1.73 sq m ESTIMATED GFR IS NOT dbvp=2384) ACCURATE CREATININE CLEARANCE IN PREDICTING GLOMERULAR FILTRATION RATE. ESTIMATED GFR IS NOT APPLICABLE FOR DIALYSIS PATIENTS. CBC W/PLT COUNT & AUTO [id number] 04:21:00 Test Item Value Reference Range Comments WHITE BLOOD CELL COUNT (BEAKER) (test mnsq=090) 8.4 K/ L 3.5-10.5 RED BLOOD CELL COUNT (BEAKER) (test bazq=025) 3.54 M/ L 4.63-6.08 HEMOGLOBIN (BEAKER) (test twuj=409) 11.3 GM/DL 13.7-17.5 HEMATOCRIT (BEAKER) (test pakl=328) 33.2 % 40.1-51.0 MEAN CORPUSCULAR VOLUME (BEAKER) (test uluy=745) 93.8 fL 79.0-92.2 MEAN CORPUSCULAR HEMOGLOBIN (BEAKER) (test 31.9 pg 25.7-32.2 ytur=185) MEAN CORPUSCULAR HEMOGLOBIN CONC (BEAKER) (test 34.0 GM/DL 32.3-36.5 qgmk=276) RED CELL DISTRIBUTION WIDTH (BEAKER) (test 17.4 % 11.6-14.4 pvem=513) PLATELET COUNT (BEAKER) (test vxro=083) 81 K/CU MM 150-450 MEAN PLATELET VOLUME (BEAKER) (test mvpn=155) 11.0 fL 9.4-12.4 NUCLEATED RED BLOOD CELLS (BEAKER) (test 0 /100 WBC 0-0 jcnp=796) NEUTROPHILS RELATIVE PERCENT (BEAKER) (test 81 % iboi=954) LYMPHOCYTES RELATIVE PERCENT (BEAKER) (test 9 % cpls=490) MONOCYTES RELATIVE PERCENT (BEAKER) (test 8 % kfzm=912) EOSINOPHILS RELATIVE PERCENT (BEAKER) (test 1 % pxvv=609) BASOPHILS RELATIVE PERCENT (BEAKER) (test 0 % hwyd=860) NEUTROPHILS ABSOLUTE COUNT (BEAKER) (test 6.85 K/ L 1.78-5.38 iltb=509) LYMPHOCYTES ABSOLUTE COUNT (BEAKER) (test 0.73 K/ L 1.32-3.57 quld=214) MONOCYTES ABSOLUTE COUNT (BEAKER) (test vzvm=717) 0.67 K/ L 0.30-0.82 EOSINOPHILS ABSOLUTE COUNT (BEAKER) (test 0.09 K/ L 0.04-0.54 phim=635) BASOPHILS ABSOLUTE COUNT (BEAKER) (test abmf=720) 0.01 K/ L 0.01-0.08 IMMATURE GRANULOCYTES-RELATIVE PERCENT (BEAKER) 1 % 0-1 (test yfdu=9573) [id number] 04:11:00 Test Item Value Reference Range Comments PROTIME (BEAKER) (test llpr=519) 17.5 seconds 11.7-14.7 INR (BEAKER) (test yarg=631) 1.4 <=5.9 PARTIAL THROMBOPLASTIN TIME (BEAKER) (test 37.9 seconds 22.5-36.0 sibo=872) RECOMMENDED COUMADIN/WARFARIN INR THERAPY RANGESSTANDARD DOSE: 2.0 - 3.0 Includes: PROPHYLAXIS forvenous thrombosis, systemic embolization; TREATMENT for venous thrombosis and/or pulmonary embolus.HIGH RISK: Target INR is 2.5-3.5 for patients with mechanical heart valves.CALCIUM, [id number] 03:49:00 Test Item Value Reference Range Comments CALCIUM IONIZED (BEAKER) (test wxbe=205) 1.03 mmol/L 1.12-1.27 PH, BLOOD (BEAKER) (test bdbi=2252) 7.41 POCT-GLUCOSE [id number] 21:30:00 Test Item Value Reference Range Comments POC-GLUCOSE METER (BEAKER) 139 mg/dL 70-110 TESTED AT [facility] [address] [facility] (test czam=5427) [facility] [address] CT, CHEST, WITHOUT [id number] 20:21:00FINAL REPORT CT scan of the chest. CLINICAL [...] is seen. There is no left-sided effusion. Thevisualized bones of the upper abdomen demonstrate a markedly nodular, cirrhotic appearing liver. Mild to moderate ascites is seen. Please refer to recent abdominal imaging. The tracheobronchial tree isclear with no endobronchial lesions. The pulmonary parenchyma demonstrates a tiny granuloma in the right lung apex. Atelectasis or consolidation is seen in the lung bases, more so on the right side. Bone windows demonstrate degenerative changes. Old right-sided rib fractures are seen. IMPRESSION:1. Small right-sided pleural effusion with adjacent atelectasis or consolidation. In the right clinical setting, a superimposed infection would be difficult to exclude. Clinical correlation and short term imaging follow-up could be made to exclude other etiologies.2. Nodular, cirrhotic appearing liver. Please refer to recent dedicated abdominal imaging. Signed: Gideon Aiken MDReport Verified Date/Time :08/08/2018 20:21:41 Reading Location: [facility] C013W Consult Reading Room POCT- GLUCOSE [id number] 18:52:00 Test Item Value Reference Range Comments POC-GLUCOSE METER (BEAKER) 129 mg/dL 70-110 TESTED AT [facility] [address] [facility] (test jdyq=6470) [facility] [address] [id number] 16:06:00 Test Item Value Reference Range Comments MAGNESIUM (BEAKER) (test ciqn=440) 1.8 mg/dL 1.6-2.6 MR, ABDOMEN, [id number] 14:37:00FINAL REPORT INDICATION:Cirrhosis. Surveillance for hepatocellular carcinoma.COMPARISON: Abdomen ultrasound with Doppler July 31, 2018 TECHNIQUE: MR of the Abdomen WITHOUT and WITH intravenous contrast. FINDINGS:In segment V and there is a enhancing mass with washout andlow signal on T2-weighted imaging highly suspicious for [...] unremarkable. Right base subsegmental atelectasis is noted. 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 Partial thrombus in the superior mesenteric vein and tiny thrombus (bland) in the left portal vein. Signed: Newton Casper MDReport Verified Date/Time: 08/08/2018 14:37:29 Reading Location: [facility] B1 C013Y CT Body Reading Room POCT-GLUCOSE [id number] 12:13:00 Test Item Value Reference Range Comments POC-GLUCOSE METER (BEAKER) 126 mg/dL 70-110 TESTED AT [facility] [address] [facility] (test lnps=1924) [facility] [address] POCT-GLUCOSE [id number] 08:54:00 Test Item Value Reference Range Comments POC-GLUCOSE METER (BEAKER) 172 mg/dL 70-110 TESTED AT [facility] [address] [facility] (test qzyf=7901) [facility] [address] COMPREHENSIVE METABOLIC [id number] 04:09:00 Test Item Value Reference Range Comments TOTAL PROTEIN (BEAKER) 6.1 gm/dL 6.0-8.3 (test ledy=276) ALBUMIN (BEAKER) (test 2.2 g/dL 3.5-5.0 rpwf=4585) ALKALINE PHOSPHATASE 113 U/L 40-150 (BEAKER) (test shzi=449) BILIRUBIN TOTAL (BEAKER) 2.5 mg/dL 0.2-1.2 (test dmkb=776) SODIUM (BEAKER) (test 133 meq/L 136-145 pqfv=288) POTASSIUM (BEAKER) (test 4.0 meq/L 3.5-5.1 stwa=452) CHLORIDE (BEAKER) (test 103 meq/L 98-107 oyjd=207) CO2 (BEAKER) (test 24 meq/L 22-29 pdaf=793) BLOOD UREA NITROGEN 36 mg/dL 7-21 (BEAKER) (test nmsj=691) CREATININE (BEAKER) (test 1.11 mg/dL 0.57-1.25 rwvm=571) GLUCOSE RANDOM (BEAKER) 106 mg/dL 70-105 (test jjnw=676) CALCIUM (BEAKER) (test 7.9 mg/dL 8.4-10.2 vyby=233) AST (SGOT) (BEAKER) (test 70 U/L 5-34 nyfi=923) ALT (SGPT) (BEAKER) (test 30 U/L 6-55 zcmi=021) EGFR (BEAKER) (test 68 mL/min/1.73 sq m ESTIMATED GFR IS NOT xzvr=4712) ACCURATE CREATININE CLEARANCE IN PREDICTING GLOMERULAR FILTRATION RATE. ESTIMATED GFR IS NOT APPLICABLE FOR DIALYSIS PATIENTS. Specimen slightly [id number] 04:05:00 Test Item Value Reference Range Comments PHOSPHORUS (BEAKER) (test emkt=249) 3.4 mg/dL 2.3-4.7 [id number] 04:05:00 Test Item Value Reference Range Comments MAGNESIUM (BEAKER) (test yfjy=659) 1.7 mg/dL 1.6-2.6 BILIRUBIN, [id number] 04:05:00 Test Item Value Reference Range Comments BILIRUBIN DIRECT (BEAKER) (test ljcr=550) 1.9 mg/dL 0.1-0.5 [id number] 03:53:00 Test Item Value Reference Range Comments MAGNESIUM (BEAKER) (test pxuq=747) 1.6 mg/dL 1.6-2.6 [id number] 03:37:00 Test Item Value Reference Range Comments PROTIME (BEAKER) (test icjc=338) 17.1 seconds 11.7-14.7 INR (BEAKER) (test qskg=988) 1.4 <=5.9 PARTIAL THROMBOPLASTIN TIME (BEAKER) (test 35.9 seconds 22.5-36.0 fetg=051) RECOMMENDED COUMADIN/WARFARIN INR THERAPY RANGESSTANDARD DOSE: 2.0 - 3.0 Includes: PROPHYLAXIS forvenous thrombosis, systemic embolization; TREATMENT for venous thrombosis and/or pulmonary embolus.HIGH RISK: Target INR is 2.5-3.5 for patients with mechanical heart valves.CBC W/PLT COUNT & AUTO [id number] 03:29:00 Test Item Value Reference Range Comments WHITE BLOOD CELL COUNT (BEAKER) (test niez=976) 10.3 K/ L 3.5-10.5 RED BLOOD CELL COUNT (BEAKER) (test zlwq=699) 3.86 M/ L 4.63-6.08 HEMOGLOBIN (BEAKER) (test lfzf=608) 12.2 GM/DL 13.7-17.5 HEMATOCRIT (BEAKER) (test pmls=255) 35.4 % 40.1-51.0 MEAN CORPUSCULAR VOLUME (BEAKER) (test zudo=893) 91.7 fL 79.0-92.2 MEAN CORPUSCULAR HEMOGLOBIN (BEAKER) (test 31.6 pg 25.7-32.2 pbwv=325) MEAN CORPUSCULAR HEMOGLOBIN CONC (BEAKER) (test 34.5 GM/DL 32.3-36.5 sjhp=827) RED CELL DISTRIBUTION WIDTH (BEAKER) (test 17.2 % 11.6-14.4 wrde=963) PLATELET COUNT (BEAKER) (test jmnd=988) 72 K/CU MM 150-450 MEAN PLATELET VOLUME (BEAKER) (test oyyx=168) 11.0 fL 9.4-12.4 NUCLEATED RED BLOOD CELLS (BEAKER) (test 0 /100 WBC 0-0 typu=126) NEUTROPHILS RELATIVE PERCENT (BEAKER) (test 85 % chil=750) LYMPHOCYTES RELATIVE PERCENT (BEAKER) (test 7 % jtmx=790) MONOCYTES RELATIVE PERCENT (BEAKER) (test 7 % eyww=636) EOSINOPHILS RELATIVE PERCENT (BEAKER) (test 1 % kqgv=420) BASOPHILS RELATIVE PERCENT (BEAKER) (test 0 % tvxo=958) NEUTROPHILS ABSOLUTE COUNT (BEAKER) (test 8.69 K/ L 1.78-5.38 citn=579) LYMPHOCYTES ABSOLUTE COUNT (BEAKER) (test 0.69 K/ L 1.32-3.57 taah=013) MONOCYTES ABSOLUTE COUNT (BEAKER) (test tnsi=966) 0.74 K/ L 0.30-0.82 EOSINOPHILS ABSOLUTE COUNT (BEAKER) (test 0.06 K/ L 0.04-0.54 kvsk=831) BASOPHILS ABSOLUTE COUNT (BEAKER) (test yvkw=493) 0.02 K/ L 0.01-0.08 IMMATURE GRANULOCYTES-RELATIVE PERCENT (BEAKER) 1 % 0-1 (test zlaa=0363) CALCIUM, [id number] 03:23:00 Test Item Value Reference Range Comments CALCIUM IONIZED (BEAKER) (test kmxr=984) 1.00 mmol/L 1.12-1.27 PH, BLOOD (BEAKER) (test vbwt=8855) 7.45 POCT-GLUCOSE [id number] 22:31:00 Test Item Value Reference Range Comments POC-GLUCOSE METER (BEAKER) 144 mg/dL 70-110 TESTED AT [address] (test gosf=5995) [facility] [address] POCT-GLUCOSE [id number] 16:34:00 Test Item Value Reference Range Comments POC-GLUCOSE METER (BEAKER) 127 mg/dL 70-110 TESTED AT [place] [id number] [facility] (test dxgi=6933) [place] [id number] POCT-GLUCOSE [id number] 12:58:00 Test Item Value Reference Range Comments POC-GLUCOSE METER (BEAKER) 144 mg/dL 70-110 TESTED AT [address] (test dxkx=2425) [place] [id number] CBC W/PLT COUNT & AUTO [id number] 07:12:00 Test Item Value Reference Range Comments WHITE BLOOD CELL COUNT (BEAKER) (test ieyy=922) 10.1 K/ L 3.5-10.5 RED BLOOD CELL COUNT (BEAKER) (test xwso=622) 4.15 M/ L 4.63-6.08 HEMOGLOBIN (BEAKER) (test cmvp=119) 13.0 GM/DL 13.7-17.5 HEMATOCRIT (BEAKER) (test rvrm=505) 39.1 % 40.1-51.0 MEAN CORPUSCULAR VOLUME (BEAKER) (test mpeb=354) 94.2 fL 79.0-92.2 MEAN CORPUSCULAR HEMOGLOBIN (BEAKER) (test 31.3 pg 25.7-32.2 aflo=770) MEAN CORPUSCULAR HEMOGLOBIN CONC (BEAKER) (test 33.2 GM/DL 32.3-36.5 yrnu=839) RED CELL DISTRIBUTION WIDTH (BEAKER) (test 17.3 % 11.6-14.4 alut=192) PLATELET COUNT (BEAKER) (test ajvs=736) 80 K/CU MM 150-450 MEAN PLATELET VOLUME (BEAKER) (test erkf=842) 11.8 fL 9.4-12.4 NUCLEATED RED BLOOD CELLS (BEAKER) (test 0 /100 WBC 0-0 hqlj=531) NEUTROPHILS RELATIVE PERCENT (BEAKER) (test 83 % kfhd=263) LYMPHOCYTES RELATIVE PERCENT (BEAKER) (test 7 % sjot=480) MONOCYTES RELATIVE PERCENT (BEAKER) (test 8 % wxqk=468) EOSINOPHILS RELATIVE PERCENT (BEAKER) (test 1 % psfy=624) BASOPHILS RELATIVE PERCENT (BEAKER) (test 0 % wnhr=205) NEUTROPHILS ABSOLUTE COUNT (BEAKER) (test 8.40 K/ L 1.78-5.38 ogif=330) LYMPHOCYTES ABSOLUTE COUNT (BEAKER) (test 0.67 K/ L 1.32-3.57 tuqd=894) MONOCYTES ABSOLUTE COUNT (BEAKER) (test fvsg=658) 0.78 K/ L 0.30-0.82 EOSINOPHILS ABSOLUTE COUNT (BEAKER) (test 0.08 K/ L 0.04-0.54 wgpu=554) BASOPHILS ABSOLUTE COUNT (BEAKER) (test dxzg=155) 0.01 K/ L 0.01-0.08 IMMATURE GRANULOCYTES-RELATIVE PERCENT (BEAKER) 1 % 0-1 (test dqbz=9765) [id number] 07:07:00 Test Item Value Reference Range Comments PREALBUMIN (BEAKER) (test iwnw=705) 7 mg/dL 14-45 COMPREHENSIVE METABOLIC [id number] 06:58:00 Test Item Value Reference Range Comments TOTAL PROTEIN (BEAKER) 6.1 gm/dL 6.0-8.3 (test gird=929) ALBUMIN (BEAKER) (test 2.3 g/dL 3.5-5.0 zxhq=4541) ALKALINE PHOSPHATASE 98 U/L 40-150 (BEAKER) (test ywgv=616) BILIRUBIN TOTAL (BEAKER) 2.6 mg/dL 0.2-1.2 (test wovy=146) SODIUM (BEAKER) (test 133 meq/L 136-145 ecnc=304) POTASSIUM (BEAKER) (test 3.9 meq/L 3.5-5.1 ifxe=490) CHLORIDE (BEAKER) (test 102 meq/L 98-107 imtr=019) CO2 (BEAKER) (test 25 meq/L 22-29 ralh=215) BLOOD UREA NITROGEN 43 mg/dL 7-21 (BEAKER) (test gauq=573) CREATININE (BEAKER) (test 1.17 mg/dL 0.57-1.25 vwdl=504) GLUCOSE RANDOM (BEAKER) 93 mg/dL 70-105 (test nxyg=222) CALCIUM (BEAKER) (test 7.8 mg/dL 8.4-10.2 qbvf=498) AST (SGOT) (BEAKER) (test 65 U/L 5-34 ktzg=483) ALT (SGPT) (BEAKER) (test 29 U/L 6-55 fudn=608) EGFR (BEAKER) (test 64 mL/min/1.73 sq m ESTIMATED GFR IS NOT dxaj=0952) ACCURATE CREATININE CLEARANCE IN PREDICTING GLOMERULAR FILTRATION RATE. ESTIMATED GFR IS NOT APPLICABLE FOR DIALYSIS PATIENTS. Specimen slightly [id number] 06:57:00 Test Item Value Reference Range Comments MAGNESIUM (BEAKER) (test ggei=061) 1.8 mg/dL 1.6-2.6 [id number] 06:57:00 Test Item Value Reference Range Comments PHOSPHORUS (BEAKER) (test nblv=977) 3.1 mg/dL 2.3-4.7 [id number] 06:57:00 Test Item Value Reference Range Comments TRIGLYCERIDES (BEAKER) (test cder=271) 64 mg/dL TRIGLYCERIDE REFERENCE RANGELow Risk <150Borderline Risk 150-199High Risk 200-499Very High Risk>=500Specimen slightly ictericBILIRUBIN, [id number] 06:57:00 Test Item Value Reference Range Comments BILIRUBIN DIRECT (BEAKER) (test okmi=127) 2.0 mg/dL 0.1-0.5 C-REACTIVE [id number] 06:57:00 Test Item Value Reference Range Comments C-REACTIVE PROTEIN (BEAKER) (test neig=469) 3.98 mg/dL 0.00-0.50 [id number] 06:37:00 Test Item Value Reference Range Comments MAGNESIUM (BEAKER) (test gnua=148) 1.8 mg/dL 1.6-2.6 [id number] 06:10:00 Test Item Value Reference Range Comments PROTIME (BEAKER) (test cmhm=622) 17.3 seconds 11.7-14.7 INR (BEAKER) (test qwxw=697) 1.4 <=5.9 PARTIAL THROMBOPLASTIN TIME (BEAKER) (test 38.9 seconds 22.5-36.0 zbly=579) RECOMMENDED COUMADIN/WARFARIN INR THERAPY RANGESSTANDARD DOSE: 2.0 - 3.0 Includes: PROPHYLAXIS forvenous thrombosis, systemic embolization; TREATMENT for venous thrombosis and/or pulmonary embolus.HIGH RISK: Target INR is 2.5-3.5 for patients with mechanical heart valves.CALCIUM, [id number] 05:17:00 Test Item Value Reference Range Comments CALCIUM IONIZED (BEAKER) (test prxa=799) 1.01 mmol/L 1.12-1.27 PH, BLOOD (BEAKER) (test rnaw=6208) 7.43 POCT-GLUCOSE [id number] 22:09:00 Test Item Value Reference Range Comments POC-GLUCOSE METER (BEAKER) 131 mg/dL 70-110 TESTED AT [address] (test ymni=9429) [place] [address] POCT-GLUCOSE [id number] 16:04:00 Test Item Value Reference Range Comments POC-GLUCOSE METER (BEAKER) 126 mg/dL 70-110 TESTED AT [address] (test hlfd=7791) [place] [address] U/S, [id number] 15:57:00Reason for exam:->large volume ascitesFINAL REPORT Procedure: Ultrasound Guided Paracentesis: Pre procedure Diagnosis: Ascites Post procedure Diagnosis: Same Sedation: None Local anesthesia: 1% Xylocaine. Description/findings: The risks, benefits, and alternatives of the procedure were explained. Questions were answered, and informed, written consent was then obtained. The right lower quadrant was prepped and draped and local anesthesia given. A 5 F paracentesis catheter was inserted into the peritoneal space and 2400 cc of serosanguineous ascites was aspirated. Specimen were collected for the lab. No immediate complications were noted. Estimated blood loss: none. Impression: Uncomplicated ultrasound-guided paracentesis Signed: [facility] Verified Date/Time: 08/06/2018 15:57:17 Reading Location: [facility] [address] [place] [address] Consult Reading Room BODY FLUID CELL COUNT WITH [id number] 15:17:00 Test Item Value Reference Range Comments APPEARANCE FLUID (BEAKER) (test hzji=819) Bloody Clear COLOR FLUID (BEAKER) (test njif=033) Gary Colorless, Straw RBC FLUID (BEAKER) (test mbys=363) [address] /cu mm <=1 ADJUSTED WBC FLUID (BEAKER) (test mteq=8252) 1040 /cu mm <=5 LINING CELLS (BEAKER) (test fgwb=0859) 0 /cu mm <=1 NEUTROPHILS FLUID (BEAKER) (test eder=8630) 74 % LYMPHS FLUID (BEAKER) (test dxhp=945) 10 % MONO/MACROPHAGE FLUID (BEAKER) (test lriu=447) 16 % EOSINOPHILS FLUID (BEAKER) (test wulj=059) 0 % BASO FLUID (BEAKER) (test iwkl=176) 0 % CONTAINER BODY FLUID (BEAKER) (test xboj=5778) EDTA Tube ALBUMIN, BODY [id number] 15:15:00 Test Item Value Reference Range Comments ALBUMIN FLUID (BEAKER) (test mcwz=979) 1.0 gm/dL Reference Range: No Normals Assay performance has not been validated for this type of specimen.PROTEIN, BODY [id number] 15:13:00 Test Item Value Reference Range Comments PROTEIN FLUID (BEAKER) (test nedm=332) 1.8 g/dL Absence of reference range indicates that normals have not been defined.Assay performance has not been validated for this type of specimen.BODY FLUID CULTURE + GRAM [id number] 14:46:00 Test Item Value Reference Range Comments CULTURE (BEAKER) (test jvqs=5799) No growth GRAM STAIN RESULT (BEAKER) (test 1+ WBCs voru=7532) GRAM STAIN RESULT (BEAKER) (test No organisms seen qfpx=56385) POCT-GLUCOSE [id number] 12:05:00 Test Item Value Reference Range Comments POC-GLUCOSE METER (BEAKER) 204 mg/dL 70-110 TESTED AT [address] (test qvpe=9131) [facility] [address] POCT-GLUCOSE [id number] 08:23:00 Test Item Value Reference Range Comments POC-GLUCOSE METER (BEAKER) 101 mg/dL 70-110 TESTED AT [address] (test aiyv=7831) [facility] [address] CBC W/PLT COUNT & AUTO [id number] 06:40:00 Test Item Value Reference Range Comments WHITE BLOOD CELL COUNT (BEAKER) (test nazd=694) 11.1 K/ L 3.5-10.5 RED BLOOD CELL COUNT (BEAKER) (test dzcv=015) 4.03 M/ L 4.63-6.08 HEMOGLOBIN (BEAKER) (test vtws=954) 12.7 GM/DL 13.7-17.5 HEMATOCRIT (BEAKER) (test vtal=819) 37.6 % 40.1-51.0 MEAN CORPUSCULAR VOLUME (BEAKER) (test hyqm=382) 93.3 fL 79.0-92.2 MEAN CORPUSCULAR HEMOGLOBIN (BEAKER) (test 31.5 pg 25.7-32.2 pskj=940) MEAN CORPUSCULAR HEMOGLOBIN CONC (BEAKER) (test 33.8 GM/DL 32.3-36.5 ieih=901) RED CELL DISTRIBUTION WIDTH (BEAKER) (test 16.7 % 11.6-14.4 pqjb=943) PLATELET COUNT (BEAKER) (test oipo=980) 69 K/CU MM 150-450 MEAN PLATELET VOLUME (BEAKER) (test pihq=934) 11.4 fL 9.4-12.4 NUCLEATED RED BLOOD CELLS (BEAKER) (test 0 /100 WBC 0-0 yscx=316) NEUTROPHILS RELATIVE PERCENT (BEAKER) (test 84 % izhe=355) LYMPHOCYTES RELATIVE PERCENT (BEAKER) (test 6 % qkzk=444) MONOCYTES RELATIVE PERCENT (BEAKER) (test 7 % mclm=435) EOSINOPHILS RELATIVE PERCENT (BEAKER) (test 1 % vefa=894) BASOPHILS RELATIVE PERCENT (BEAKER) (test 0 % tnqn=498) NEUTROPHILS ABSOLUTE COUNT (BEAKER) (test 9.35 K/ L 1.78-5.38 xdob=302) LYMPHOCYTES ABSOLUTE COUNT (BEAKER) (test 0.70 K/ L 1.32-3.57 uzbs=921) MONOCYTES ABSOLUTE COUNT (BEAKER) (test uemt=625) 0.78 K/ L 0.30-0.82 EOSINOPHILS ABSOLUTE COUNT (BEAKER) (test 0.08 K/ L 0.04-0.54 pjon=858) BASOPHILS ABSOLUTE COUNT (BEAKER) (test divh=333) 0.02 K/ L 0.01-0.08 IMMATURE GRANULOCYTES-RELATIVE PERCENT (BEAKER) 2 % 0-1 (test eqzm=9574) CALCIUM, [id number] 06:02:00 Test Item Value Reference Range Comments CALCIUM IONIZED (BEAKER) (test emwr=291) 0.98 mmol/L 1.12-1.27 PH, BLOOD (BEAKER) (test expc=2770) 7.43 COMPREHENSIVE METABOLIC [id number] 05:53:00 Test Item Value Reference Range Comments TOTAL PROTEIN (BEAKER) 5.9 gm/dL 6.0-8.3 (test vmtj=495) ALBUMIN (BEAKER) (test 2.4 g/dL 3.5-5.0 hpkb=3137) ALKALINE PHOSPHATASE 79 U/L 40-150 (BEAKER) (test ymkc=043) BILIRUBIN TOTAL (BEAKER) 2.7 mg/dL 0.2-1.2 (test zplw=478) SODIUM (BEAKER) (test 132 meq/L 136-145 itqu=310) POTASSIUM (BEAKER) (test 4.0 meq/L 3.5-5.1 dbmt=115) CHLORIDE (BEAKER) (test 101 meq/L 98-107 misn=502) CO2 (BEAKER) (test 26 meq/L 22-29 rcmj=015) BLOOD UREA NITROGEN 50 mg/dL 7-21 (BEAKER) (test qzgw=143) CREATININE (BEAKER) (test 1.12 mg/dL 0.57-1.25 iwyn=299) GLUCOSE RANDOM (BEAKER) 105 mg/dL 70-105 (test gltf=762) CALCIUM (BEAKER) (test 7.7 mg/dL 8.4-10.2 ikvj=148) AST (SGOT) (BEAKER) (test 56 U/L 5-34 eddr=500) ALT (SGPT) (BEAKER) (test 25 U/L 6-55 vvlu=775) EGFR (BEAKER) (test 68 mL/min/1.73 sq m ESTIMATED GFR IS NOT xpiu=7546) ACCURATE CREATININE CLEARANCE IN PREDICTING GLOMERULAR FILTRATION RATE. ESTIMATED GFR IS NOT APPLICABLE FOR DIALYSIS PATIENTS. Specimen slightly ictericPT/[id number] 05:52:00 Test Item Value Reference Range Comments PROTIME (BEAKER) (test ydxk=071) 19.2 seconds 11.7-14.7 INR (BEAKER) (test ytmc=465) 1.6 <=5.9 PARTIAL THROMBOPLASTIN TIME (BEAKER) (test 38.0 seconds 22.5-36.0 wnud=705) RECOMMENDED COUMADIN/WARFARIN INR THERAPY RANGESSTANDARD DOSE: 2.0 - 3.0 Includes: PROPHYLAXIS forvenous thrombosis, systemic embolization; TREATMENT for venous thrombosis and/or pulmonary embolus.HIGH RISK: Target INR is 2.5-3.5 for patients with mechanical heart valves.[id number] 05:36:00 Test Item Value Reference Range Comments PHOSPHORUS (BEAKER) (test kexs=022) 2.5 mg/dL 2.3-4.7 [id number] 05:36:00 Test Item Value Reference Range Comments MAGNESIUM (BEAKER) (test kerz=936) 1.9 mg/dL 1.6-2.6 BILIRUBIN, [id number] 05:36:00 Test Item Value Reference Range Comments BILIRUBIN DIRECT (BEAKER) (test jtyr=837) 2.0 mg/dL 0.1-0.5 B-TYPE NATRIURETIC FACTOR (BNP)[id number] 05:32:00 Test Item Value Reference Range Comments B-TYPE NATRIURETIC PEPTIDE (BEAKER) (test 139 pg/mL 0-100 oxtd=626) BLOOD [id number] 01:01:00 Test Item Value Reference Range Comments CULTURE (BEAKER) (test aqyp=7401) No growth in 5 days BLOOD [id number] 01:01:00 Test Item Value Reference Range Comments CULTURE (BEAKER) (test siux=9263) No growth in 5 days POCT-GLUCOSE [id number] 21:48:00 Test Item Value Reference Range Comments POC-GLUCOSE METER (BEAKER) 155 mg/dL 70-110 TESTED AT [address] (test wkta=9243) [place] [address] BLOOD [id number] 19:05:00 Test Item Value Reference Range Comments CULTURE (BEAKER) From Aerobic Bottle Only (test vlwc=9247) Coagulase negative Staphylococcus GRAM STAIN RESULT From aerobic bottle (BEAKER) (test only: gram positive jfng=5844) cocci in clusters POCT-GLUCOSE [id number] 17:46:00 Test Item Value Reference Range Comments POC-GLUCOSE METER (BEAKER) 119 mg/dL 70-110 TESTED AT [address] (test xgfv=7937) [place] [address] POCT-GLUCOSE [id number] 12:00:00 Test Item Value Reference Range Comments POC-GLUCOSE METER (BEAKER) 148 mg/dL 70-110 TESTED AT [facility] [address] [facility] (test jowk=7295) [facility] [address] COMPREHENSIVE METABOLIC [id number] 07:14:00 Test Item Value Reference Range Comments TOTAL PROTEIN (BEAKER) 5.4 gm/dL 6.0-8.3 (test ukjg=751) ALBUMIN (BEAKER) (test 2.4 g/dL 3.5-5.0 dcxs=7115) ALKALINE PHOSPHATASE 65 U/L 40-150 (BEAKER) (test cjeo=273) BILIRUBIN TOTAL (BEAKER) 2.8 mg/dL 0.2-1.2 (test azpf=943) SODIUM (BEAKER) (test 134 meq/L 136-145 vknx=722) POTASSIUM (BEAKER) (test 4.0 meq/L 3.5-5.1 iqhx=943) CHLORIDE (BEAKER) (test 101 meq/L 98-107 tbrd=129) CO2 (BEAKER) (test 28 meq/L 22-29 evlu=082) BLOOD UREA NITROGEN 58 mg/dL 7-21 (BEAKER) (test yomn=842) CREATININE (BEAKER) (test 1.22 mg/dL 0.57-1.25 ozyl=426) GLUCOSE RANDOM (BEAKER) 109 mg/dL 70-105 (test ibkf=017) CALCIUM (BEAKER) (test 7.9 mg/dL 8.4-10.2 hzxx=357) AST (SGOT) (BEAKER) (test 51 U/L 5-34 rrab=681) ALT (SGPT) (BEAKER) (test 23 U/L 6-55 takb=843) EGFR (BEAKER) (test 61 mL/min/1.73 sq m ESTIMATED GFR IS NOT qvbm=6326) ACCURATE CREATININE CLEARANCE IN PREDICTING GLOMERULAR FILTRATION RATE. ESTIMATED GFR IS NOT APPLICABLE FOR DIALYSIS PATIENTS. Specimen slightly [id number] 07:12:00 Test Item Value Reference Range Comments PHOSPHORUS (BEAKER) (test tnmi=821) 2.4 mg/dL 2.3-4.7 [id number] 07:12:00 Test Item Value Reference Range Comments MAGNESIUM (BEAKER) (test qmxp=024) 2.0 mg/dL 1.6-2.6 BILIRUBIN, [id number] 07:12:00 Test Item Value Reference Range Comments BILIRUBIN DIRECT (BEAKER) (test kpeu=071) 2.1 mg/dL 0.1-0.5 CALCIUM, [id number] 07:04:00 Test Item Value Reference Range Comments CALCIUM IONIZED (BEAKER) (test gkxu=922) 0.94 mmol/L 1.12-1.27 PH, BLOOD (BEAKER) (test ienu=1449) 7.48 CBC W/PLT COUNT & AUTO [id number] 07:04:00 Test Item Value Reference Range Comments WHITE BLOOD CELL COUNT (BEAKER) (test ybqx=011) 10.0 K/ L 3.5-10.5 RED BLOOD CELL COUNT (BEAKER) (test noqn=443) 3.86 M/ L 4.63-6.08 HEMOGLOBIN (BEAKER) (test xmwa=647) 12.2 GM/DL 13.7-17.5 HEMATOCRIT (BEAKER) (test fsaw=272) 36.2 % 40.1-51.0 MEAN CORPUSCULAR VOLUME (BEAKER) (test wppq=587) 93.8 fL 79.0-92.2 MEAN CORPUSCULAR HEMOGLOBIN (BEAKER) (test 31.6 pg 25.7-32.2 qdpx=542) MEAN CORPUSCULAR HEMOGLOBIN CONC (BEAKER) (test 33.7 GM/DL 32.3-36.5 dmst=305) RED CELL DISTRIBUTION WIDTH (BEAKER) (test 16.1 % 11.6-14.4 asry=600) PLATELET COUNT (BEAKER) (test hmxu=768) 50 K/CU MM 150-450 MEAN PLATELET VOLUME (BEAKER) (test glpx=136) 10.5 fL 9.4-12.4 NUCLEATED RED BLOOD CELLS (BEAKER) (test 0 /100 WBC 0-0 huch=330) NEUTROPHILS RELATIVE PERCENT (BEAKER) (test 82 % uwfs=342) LYMPHOCYTES RELATIVE PERCENT (BEAKER) (test 6 % wbza=599) MONOCYTES RELATIVE PERCENT (BEAKER) (test 9 % wmmv=106) EOSINOPHILS RELATIVE PERCENT (BEAKER) (test 1 % znan=093) BASOPHILS RELATIVE PERCENT (BEAKER) (test 0 % tiaq=703) NEUTROPHILS ABSOLUTE COUNT (BEAKER) (test 8.13 K/ L 1.78-5.38 spaj=499) LYMPHOCYTES ABSOLUTE COUNT (BEAKER) (test 0.60 K/ L 1.32-3.57 dwcd=026) MONOCYTES ABSOLUTE COUNT (BEAKER) (test riiw=690) 0.90 K/ L 0.30-0.82 EOSINOPHILS ABSOLUTE COUNT (BEAKER) (test 0.10 K/ L 0.04-0.54 focd=399) BASOPHILS ABSOLUTE COUNT (BEAKER) (test nxbj=722) 0.01 K/ L 0.01-0.08 IMMATURE GRANULOCYTES-RELATIVE PERCENT (BEAKER) 2 % 0-1 (test piyv=3556) [id number] 06:40:00 Test Item Value Reference Range Comments PROTIME (BEAKER) (test uqhc=237) 20.1 seconds 11.7-14.7 INR (BEAKER) (test lbbx=752) 1.7 <=5.9 PARTIAL THROMBOPLASTIN TIME (BEAKER) (test 38.9 seconds 22.5-36.0 zjoj=259) RECOMMENDED COUMADIN/WARFARIN INR THERAPY RANGESSTANDARD DOSE: 2.0 - 3.0 Includes: PROPHYLAXIS forvenous thrombosis, systemic embolization; TREATMENT for venous thrombosis and/or pulmonary embolus.HIGH RISK: Target INR is 2.5-3.5 for patients with mechanical heart valves.POCT-GLUCOSE [id number] 05:41:00 Test Item Value Reference Range Comments POC-GLUCOSE METER (BEAKER) 119 mg/dL 70-110 TESTED AT [address] (test mmsp=8607) [facility] [address] POCT-GLUCOSE [id number] 23:07:00 Test Item Value Reference Range Comments POC-GLUCOSE METER (BEAKER) 176 mg/dL 70-110 TESTED AT [address] (test vcee=7963) [facility] [address] POCT-GLUCOSE [id number] 17:28:00 Test Item Value Reference Range Comments POC-GLUCOSE METER (BEAKER) 148 mg/dL 70-110 TESTED AT [address] (test pzoz=9997) [facility] [address] [id number] 16:32:00 Test Item Value Reference Range Comments MAGNESIUM (BEAKER) (test 3.8 mg/dL 1.6-2.6 Specimen markedly hemolyzed tpnz=489) HEMOGLOBIN AND [id number] 16:06:00 Test Item Value Reference Range Comments HEMOGLOBIN (BEAKER) (test wkuo=657) 12.3 GM/DL 13.7-17.5 HEMATOCRIT (BEAKER) (test zlls=297) 35.2 % 40.1-51.0 POCT-GLUCOSE [id number] 13:34:00 Test Item Value Reference Range Comments POC-GLUCOSE METER (BEAKER) 179 mg/dL 70-110 TESTED AT [address] (test ztun=7544) [facility] [address] POCT-GLUCOSE [id number] 09:10:00 Test Item Value Reference Range Comments POC-GLUCOSE METER (BEAKER) 172 mg/dL 70-110 TESTED AT [address] (test yomc=5702) [facility] [address] CALCIUM, [id number] 05:36:00 Test Item Value Reference Range Comments CALCIUM IONIZED (BEAKER) (test vcte=718) 1.05 mmol/L 1.12-1.27 PH, BLOOD (BEAKER) (test kwea=4703) 7.41 [id number] 04:39:00 Test Item Value Reference Range Comments PHOSPHORUS (BEAKER) (test kkve=781) 1.9 mg/dL 2.3-4.7 [id number] 04:39:00 Test Item Value Reference Range Comments MAGNESIUM (BEAKER) (test piez=501) 2.5 mg/dL 1.6-2.6 COMPREHENSIVE METABOLIC [id number] 04:39:00 Test Item Value Reference Range Comments TOTAL PROTEIN (BEAKER) 5.1 gm/dL 6.0-8.3 (test ujtc=261) ALBUMIN (BEAKER) (test 2.6 g/dL 3.5-5.0 bnmp=3886) ALKALINE PHOSPHATASE 52 U/L 40-150 (BEAKER) (test ocqd=739) BILIRUBIN TOTAL (BEAKER) 2.5 mg/dL 0.2-1.2 (test stac=684) SODIUM (BEAKER) (test 132 meq/L 136-145 vhcp=333) POTASSIUM (BEAKER) (test 3.8 meq/L 3.5-5.1 hwip=056) CHLORIDE (BEAKER) (test 101 meq/L 98-107 wjto=287) CO2 (BEAKER) (test 26 meq/L 22-29 ujat=247) BLOOD UREA NITROGEN 71 mg/dL 7-21 (BEAKER) (test pcol=091) CREATININE (BEAKER) (test 1.46 mg/dL 0.57-1.25 oszr=325) GLUCOSE RANDOM (BEAKER) 124 mg/dL 70-105 (test zocj=934) CALCIUM (BEAKER) (test 8.1 mg/dL 8.4-10.2 adez=662) AST (SGOT) (BEAKER) (test 40 U/L 5-34 paak=907) ALT (SGPT) (BEAKER) (test 22 U/L 6-55 ytxx=974) EGFR (BEAKER) (test 50 mL/min/1.73 sq m ESTIMATED GFR IS NOT zyql=1850) ACCURATE CREATININE CLEARANCE IN PREDICTING GLOMERULAR FILTRATION RATE. ESTIMATED GFR IS NOT APPLICABLE FOR DIALYSIS PATIENTS. BILIRUBIN, [id number] 04:39:00 Test Item Value Reference Range Comments BILIRUBIN DIRECT (BEAKER) (test fhui=459) 1.9 mg/dL 0.1-0.5 [id number] 04:26:00 Test Item Value Reference Range Comments PROTIME (BEAKER) (test xgak=195) 20.0 seconds 11.7-14.7 INR (BEAKER) (test qrzh=679) 1.7 <=5.9 PARTIAL THROMBOPLASTIN TIME (BEAKER) (test 41.2 seconds 22.5-36.0 okro=809) RECOMMENDED COUMADIN/WARFARIN INR THERAPY RANGESSTANDARD DOSE: 2.0 - 3.0 Includes: PROPHYLAXIS forvenous thrombosis, systemic embolization; TREATMENT for venous thrombosis and/or pulmonary embolus.HIGH RISK: Target INR is 2.5-3.5 for patients with mechanical heart valves.CBC W/PLT COUNT & AUTO [id number] 04:23:00 Test Item Value Reference Range Comments WHITE BLOOD CELL COUNT (BEAKER) (test cgwa=808) 8.4 K/ L 3.5-10.5 RED BLOOD CELL COUNT (BEAKER) (test zodq=818) 3.75 M/ L 4.63-6.08 HEMOGLOBIN (BEAKER) (test eahg=771) 11.8 GM/DL 13.7-17.5 HEMATOCRIT (BEAKER) (test jlli=765) 34.6 % 40.1-51.0 MEAN CORPUSCULAR VOLUME (BEAKER) (test tpto=123) 92.3 fL 79.0-92.2 MEAN CORPUSCULAR HEMOGLOBIN (BEAKER) (test 31.5 pg 25.7-32.2 scmv=345) MEAN CORPUSCULAR HEMOGLOBIN CONC (BEAKER) (test 34.1 GM/DL 32.3-36.5 itfi=030) RED CELL DISTRIBUTION WIDTH (BEAKER) (test 15.5 % 11.6-14.4 bxph=071) PLATELET COUNT (BEAKER) (test ybuc=416) 47 K/CU MM 150-450 MEAN PLATELET VOLUME (BEAKER) (test cubs=472) 10.4 fL 9.4-12.4 NUCLEATED RED BLOOD CELLS (BEAKER) (test 0 /100 WBC 0-0 iwmk=848) NEUTROPHILS RELATIVE PERCENT (BEAKER) (test 80 % rosz=233) LYMPHOCYTES RELATIVE PERCENT (BEAKER) (test 8 % yvjs=457) MONOCYTES RELATIVE PERCENT (BEAKER) (test 9 % wefi=835) EOSINOPHILS RELATIVE PERCENT (BEAKER) (test 1 % pryn=014) BASOPHILS RELATIVE PERCENT (BEAKER) (test 0 % suhh=402) NEUTROPHILS ABSOLUTE COUNT (BEAKER) (test 6.71 K/ L 1.78-5.38 ctjm=426) LYMPHOCYTES ABSOLUTE COUNT (BEAKER) (test 0.64 K/ L 1.32-3.57 xpoa=609) MONOCYTES ABSOLUTE COUNT (BEAKER) (test jfpu=831) 0.78 K/ L 0.30-0.82 EOSINOPHILS ABSOLUTE COUNT (BEAKER) (test 0.06 K/ L 0.04-0.54 nfns=005) BASOPHILS ABSOLUTE COUNT (BEAKER) (test vkda=838) 0.01 K/ L 0.01-0.08 IMMATURE GRANULOCYTES-RELATIVE PERCENT (BEAKER) 2 % 0-1 (test ifcx=4936) POCT-GLUCOSE [id number] 01:53:00 Test Item Value Reference Range Comments POC-GLUCOSE METER (BEAKER) 143 mg/dL 70-110 TESTED AT [address] (test anma=5558) [facility] [address] ANAEROBIC [id number] 18:23:00 Test Item Value Reference Range Comments CULTURE (BEAKER) (test uyrr=8747) No anaerobes isolated TISSUE [id number] 18:18:00Surgical Pathology Report Case: [id number] Authorizing Provider: Anjel Moya MD Collected: 07/30/2018 1101 Ordering Location: [address] Received: 08/01/2018 0842 Pathologist: Bel Cid MD Specimens: A ) - Small Bowel, NOS B) -Biopsy, Liver, Liver Mass THIS FINAL REPORT ISISSUED TO REPORT THE RESULT OF IMMUNOHISTOCHEMICAL STAIN ARGINASE ON SPECIMEN B AND CORRECT TYPOGRAFICAL ERROR IN THE FINAL DIAGNOSIS OF SPECIMEN A:A. SMALL BOWEL, RESECTION - TRANSMURAL NECROSISWITH SURFACE ULCERATION, SEVERE SEROSITIS AND ABSCESSES - PERFORATION SEEN GROSSLY - THROMBI INTHE MESEMTERIC VESSELS AND VESSELS IN THE SMALL BOWEL WALL - SEROSITIS AND FAT NECROSIS AT THE SURGICAL MARGINS - THREE BENIGN LYMPH NODES (0/2) - NEGATIVE FOR DYSPLASIA OR MALIGNANCYB. LIVER,INTRAOPERATIVE BIOPSIES OF MASS- HEPATOCELLULAR CARCINOMA, MODERATELY TO POORLY DIFFERENTIATED- TUMOR NECROSIS PRESENT- BACKGROUND LIVER WITH FEATURES SUGGESTIVE OF CIRRHOSIS- see comment Signing Pathologist Direct Phone Line : [phone] signed by Bel Cid MD on 2018 at 6:18 PMPreliminary result electronically signed by Bel Cid MD on 08/03/2018 at 12:19 PMThe tumor cells are positive for Hepar-1 and CK19. CK7 is negative. The morphology and immunohistochemical profile is consistent with a hepatocellular carcinoma (HCC). Presence of poor differentiation (based on morphology) and CK 19 immunoexpression is associated with poor prognosis (see ref.). Arginase immunostain is positive, confirming the diagnosis of hepatocellular carcinoma.Reference:Pb T et al. Cytokeratin 19 expression in hepatocellular carcinoma predicts early postoperative recurrence. Cancer Sci. 2003 Mar;94(10):851-857.Intradepartmental consultation on specimen B: [id number]; 29203; 21664 x 3; [id number] bowelA. Small bowel. B. Liver biopsy Specimen is received in two parts labeled with the patient's information and accession number.Specimen A : Received in formalin labeled "small bowel" and consists of a cylindrical segment of small bowel 61 cm in length and 3 cm in diameter, with 60 x 2 x 1.5 cm of attached mesenteric fat. The serosal surface is diffusely dusky, including at both margins. A full-thickness bowel wall perforation, 1 x 0.5 cm, is located 30 cm from arbitrarily designated margin 1 and 31 cm from arbitrarily designated margin 2. The serosa and mesenteric fat in area of the perforation are firm with a purulent exudate.The specimen is opened to reveal diffusely dusky bowel mucosa with the expected folds. Purulent material is present in the region of the full-thickness perforation. No other masses or lesions are grossly identified. The surrounding soft tissues are evaluated for lymph nodes and yield three candidate nodes rangingfrom 0.2 to 0.6 cm in greatest dimension. Vacuum Repairer sections are submitted as follows: A1, arbitrarily designated margin 1; A2, arbitrarily designated margin 2; A3, scheduling representative mesenteric margin, en face; A4-A5, scheduling representative full-thickness perforation; A6, A7, scheduling representative purulent areas proximal to perforation; A8- A9, scheduling representative bowel wall; A10, soft tissue is area of perforation; A11, three candidate lymph nodes, whole.Specimen B: Received in formalin labeled "liver biopsy" consists of two cylindrical cores of culver-white soft tissue measuring 0.1 cm in diameter and 1.1 and 1.2 cm in length, respectively. The specimen is submitted in its entirety in cassette B1. BASIL/[place]. Performed.B. Section shows liver parenchyma with moderately to poorly differentiated hepatocellular carcinoma with foci of tumoral necrosis. Reticulin stain shows loss of reticulin network in the tumor. Immunostains were performed with appropriate controls and show tumor to be positive for hepar and CK19. The tumor is negative for CK7.Section shows liver parenchyma with extensive/ expansile fibrosis with markedcholangiolar proliferation. Few nodules of preserved non-neoplastic hepatocytes are seen. These features are suggestive of cirrhosis with parenchyma extinction foci. The interpretation of this case included the use of immunohistochemistry or special stains. Hepar-1; CK7; CK19 ; Arginase ;[place]'sImmunohistochemistry technical testing was performed at [facility] Pathology [facility] where it was developed and its performance characteristics were determined. It has not been cleared or approved by the U.S. Food and Drug Administration. The FDA has determined that such clearance or approval is not necessary. The test is used for clinical purposes. It should not be regarded as investigational or for research. This laboratory is certified under the Clinical Laboratory ImprovementAmendments of 1988 (CLIA-88) as qualified to perform high complexity clinical laboratory testing.POCT-GLUCOSE [id number] 17:24:00 Test Item Value Reference Range Comments POC-GLUCOSE METER (BEAKER) 130 mg/dL 70-110 TESTED AT [address] (test sugo=7562) [facility] [address] POCT-GLUCOSE [id number] 12:03:00 Test Item Value Reference Range Comments POC-GLUCOSE METER (BEAKER) 142 mg/dL 70-110 TESTED AT [address] (test asit=2402) [facility] [address] POCT-GLUCOSE [id number] 09:05:00 Test Item Value Reference Range Comments POC-GLUCOSE METER (BEAKER) 118 mg/dL 70-110 TESTED AT [address] (test fvwq=1111) [facility] [address] RAD, CHEST, 1 VIEW, NON [id number] 09:00:00Reason for exam:->pleural effusion vs atelectasisShould this be performed at the bedside?->YesFINAL REPORT AP view of the chest dated 08/03/2018 COMPARISON: 08/02/2018 CLINICAL INFORMATION: pleural effusion vs atelectasis Comment: Heart is normal in size. Pulmonary vasculature is unremarkable. Lungs are clear. No pulmonary infiltrate or pleural effusion is present. Left PICC line remains in place. Impression: No interval change. Signed: Elsy Tafoya Verified Date/Time: 08/03/2018 09:00:26 Reading Location: [facility] Radiology Reading Room 09: 00 AMHIV-1 ANTIGEN WITH HIV-1/2 [id number] 05:55:00 Test Item Value Reference Range Comments HIV-1 ANTIGEN WITH HIV 1\\T\\2 ANTIBODY (2) Nonreactive Nonreactive (BEAKER) (test oycb=1421) [id number] 05:54:00 Test Item Value Reference Range Comments MAGNESIUM (BEAKER) (test kaeb=886) 2.8 mg/dL 1.6-2.6 COMPREHENSIVE METABOLIC [id number] 05:54:00 Test Item Value Reference Range Comments TOTAL PROTEIN (BEAKER) 5.1 gm/dL 6.0-8.3 (test rxvv=002) ALBUMIN (BEAKER) (test 2.7 g/dL 3.5-5.0 jfbt=5801) ALKALINE PHOSPHATASE 54 U/L 40-150 (BEAKER) (test raro=283) BILIRUBIN TOTAL (BEAKER) 2.7 mg/dL 0.2-1.2 (test evxh=167) SODIUM (BEAKER) (test 132 meq/L 136-145 apgt=293) POTASSIUM (BEAKER) (test 4.0 meq/L 3.5-5.1 vxzt=218) CHLORIDE (BEAKER) (test 102 meq/L 98-107 mjtj=350) CO2 (BEAKER) (test 24 meq/L 22-29 dlxf=245) BLOOD UREA NITROGEN 84 mg/dL 7-21 (BEAKER) (test tnfb=857) CREATININE (BEAKER) (test 2.09 mg/dL 0.57-1.25 ifhl=962) GLUCOSE RANDOM (BEAKER) 99 mg/dL 70-105 (test vpvz=998) CALCIUM (BEAKER) (test 8.0 mg/dL 8.4-10.2 hubd=360) AST (SGOT) (BEAKER) (test 38 U/L 5-34 znws=228) ALT (SGPT) (BEAKER) (test 24 U/L 6-55 nrbu=072) EGFR (BEAKER) (test 33 mL/min/1.73 sq m ESTIMATED GFR IS NOT ejwr=0059) ACCURATE CREATININE CLEARANCE IN PREDICTING GLOMERULAR FILTRATION RATE. ESTIMATED GFR IS NOT APPLICABLE FOR DIALYSIS PATIENTS. BASIC METABOLIC [id number] 05:54:00 Test Item Value Reference Range Comments SODIUM (BEAKER) (test 132 meq/L 136-145 mpma=192) POTASSIUM (BEAKER) (test 4.0 meq/L 3.5-5.1 gfyt=741) CHLORIDE (BEAKER) (test 102 meq/L 98-107 wufk=201) CO2 (BEAKER) (test 24 meq/L 22-29 vebe=167) BLOOD UREA NITROGEN 84 mg/dL 7-21 (BEAKER) (test dbtv=506) CREATININE (BEAKER) (test 2.09 mg/dL 0.57-1.25 gdik=663) GLUCOSE RANDOM (BEAKER) 99 mg/dL 70-105 (test uggh=941) CALCIUM (BEAKER) (test 8.0 mg/dL 8.4-10.2 fxpb=053) EGFR (BEAKER) (test 33 mL/min/1.73 sq m ESTIMATED GFR IS NOT vchv=1953) ACCURATE CREATININE CLEARANCE IN PREDICTING GLOMERULAR FILTRATION RATE. ESTIMATED GFR IS NOT APPLICABLE FOR DIALYSIS PATIENTS. BILIRUBIN, [id number] 05:54:00 Test Item Value Reference Range Comments BILIRUBIN DIRECT (BEAKER) (test lpnn=820) 1.9 mg/dL 0.1-0.5 [id number] 05:53:00 Test Item Value Reference Range Comments PHOSPHORUS (BEAKER) (test melk=268) 2.4 mg/dL 2.3-4.7 [id number] 05:40:00 Test Item Value Reference Range Comments AMMONIA (BEAKER) (test ucsz=876) 50 mol/L 18-72 CALCIUM, [id number] 05:39:00 Test Item Value Reference Range Comments CALCIUM IONIZED (BEAKER) (test vuam=606) 0.98 mmol/L 1.12-1.27 PH, BLOOD (BEAKER) (test ggki=8552) 7.43 [id number] 05:34:00 Test Item Value Reference Range Comments PROTIME (BEAKER) (test sfqe=015) 19.2 seconds 11.7-14.7 INR (BEAKER) (test hepc=406) 1.6 <=5.9 PARTIAL THROMBOPLASTIN TIME (BEAKER) (test 39.4 seconds 22.5-36.0 qmoh=001) RECOMMENDED COUMADIN/WARFARIN INR THERAPY RANGESSTANDARD DOSE: 2.0 - 3.0 Includes: PROPHYLAXIS forvenous thrombosis, systemic embolization; TREATMENT for venous thrombosis and/or pulmonary embolus.HIGH RISK: Target INR is 2.5-3.5 for patients with mechanical heart valves.CBC W/PLT COUNT & AUTO [id number] 05:16:00 Test Item Value Reference Range Comments WHITE BLOOD CELL COUNT (BEAKER) (test mqsc=231) 10.0 K/ L 3.5-10.5 RED BLOOD CELL COUNT (BEAKER) (test ldei=962) 3.84 M/ L 4.63-6.08 HEMOGLOBIN (BEAKER) (test ciav=141) 12.0 GM/DL 13.7-17.5 HEMATOCRIT (BEAKER) (test mfqr=910) 35.9 % 40.1-51.0 MEAN CORPUSCULAR VOLUME (BEAKER) (test txiz=192) 93.5 fL 79.0-92.2 MEAN CORPUSCULAR HEMOGLOBIN (BEAKER) (test 31.3 pg 25.7-32.2 ajdn=119) MEAN CORPUSCULAR HEMOGLOBIN CONC (BEAKER) (test 33.4 GM/DL 32.3-36.5 qpzw=717) RED CELL DISTRIBUTION WIDTH (BEAKER) (test 15.3 % 11.6-14.4 pdar=443) PLATELET COUNT (BEAKER) (test ymqh=038) 46 K/CU MM 150-450 MEAN PLATELET VOLUME (BEAKER) (test bgfh=577) 10.4 fL 9.4-12.4 NUCLEATED RED BLOOD CELLS (BEAKER) (test 0 /100 WBC 0-0 kwqv=790) NEUTROPHILS RELATIVE PERCENT (BEAKER) (test 81 % ojjy=730) LYMPHOCYTES RELATIVE PERCENT (BEAKER) (test 8 % xjqg=437) MONOCYTES RELATIVE PERCENT (BEAKER) (test 9 % iljt=103) EOSINOPHILS RELATIVE PERCENT (BEAKER) (test 1 % gcup=698) BASOPHILS RELATIVE PERCENT (BEAKER) (test 0 % aztn=752) NEUTROPHILS ABSOLUTE COUNT (BEAKER) (test 8.01 K/ L 1.78-5.38 grry=952) LYMPHOCYTES ABSOLUTE COUNT (BEAKER) (test 0.78 K/ L 1.32-3.57 rlcn=734) MONOCYTES ABSOLUTE COUNT (BEAKER) (test xvbl=917) 0.92 K/ L 0.30-0.82 EOSINOPHILS ABSOLUTE COUNT (BEAKER) (test 0.09 K/ L 0.04-0.54 fmus=348) BASOPHILS ABSOLUTE COUNT (BEAKER) (test qqwx=799) 0.01 K/ L 0.01-0.08 IMMATURE GRANULOCYTES-RELATIVE PERCENT (BEAKER) 1 % 0-1 (test juxb=8048) BLOOD CULTURE IDENTIFICATION [id number] 03:38:00 Test Item Value Reference Range Comments LISTERIA MONOCYTOGENES (test danv=9461728) Not detected Not detected STAPHYLOCOCCUS (test unob=9869234) Not detected Not detected STAPHYLOCOCCUS AUREUS (test gzrz=3735639) Not detected Not detected STREPTOCOCCUS (test xrxa=2295383) Not detected Not detected STREPTOCOCCUS AGALACTIAE (GROUP B) (test Not detected Not detected qvko=4675858) STREPTOCOCCUS PNEUMONIAE (test sofx=9922107) Not detected Not detected STREPTOCOCCUS PYOGENES (GROUP A) (test Not detected Not detected zdgm=5119712) ACINETOBACTER BAUMANNII (test cvua=4814347) Not detected Not detected HAEMOPHILUS INFLUENZAE (test svjk=4202550) Not detected Not detected NEISSERIA MENINGITIDIS (test htxg=5707436) Not detected Not detected ENTEROBACTERIACEAE (test nbfm=4025355) Not detected Not detected ENTEROBACTER CLOACOE COMPLEX (test Not detected Not detected mykt=3512348) KLEBSIELLA OXYTOCA (test gyqx=1554040) Not detected Not detected KLEBSIELLA PNEUMONIAE (test ylfp=5229) Not detected Not detected PROTEUS (test yehy=4554620) Not detected Not detected SERRATIA MARCESCENS (test qcgo=6897924) Not detected Not detected NIKITA ALBICANS (test ijww=8141661) Not detected Not detected NIKITA GLABRATA (test ziil=0412948) Not detected Not detected NIKITA KRUSEI (test wjaw=0837496) Not detected Not detected NIKITA PARAPSILOSIS (test dwli=8311412) Not detected Not detected NIKITA TROPICALIS (test memz=1470751) Not detected Not detected ESCHERICHIA COLI (test sios=7649466) Not detected Not detected METHICILLIN-RESISTANCE GENE (test hnav=4009027) Not detected VANCOMYCIN-RESISTANCE GENE (test zcdq=6167633) Not detected CARBAPENEM-RESISTANCE GENE (test tfat=9924041) Not detected ENTEROCOCCUS-BEAKER (test hooz=0398849) Not detected Not detected PSEUDOMONAS AERUGINOSA-BEAKER (test Not detected Not detected ylwa=6692910) Other bacteria and resistance markers not targeted by this PCR panel cannot be excluded; therefore clinical correlation and follow up of serology, culture results, and other molecular studies is required. The results are not intended to be used as the sole means for clinical diagnosis or patient management decisions. This sample was tested at the [facility] using the [employer] Blood Culture ID Panel. It is FDA cleared and has been verified and approved by the [facility] for clinical use. This laboratory is CLIA-certified and College ofAmerican Pathologists (CAP)-accredited to perform high complexity testing.POCT-GLUCOSE [id number] 00:04:00 Test Item Value Reference Range Comments POC-GLUCOSE METER (BEAKER) 128 mg/dL 70-110 TESTED AT [address] (test vapn=6879) [place] [address] BODY FLUID CELL COUNT WITH [id number] 18:55:00 Test Item Value Reference Range Comments APPEARANCE FLUID (BEAKER) (test aoet=728) Cloudy Clear COLOR FLUID (BEAKER) (test bsnn=610) Gary Colorless, Straw RBC FLUID (BEAKER) (test pgxo=583) [address] /cu mm <=1 ADJUSTED WBC FLUID (BEAKER) (test jgtg=7603) 3910 /cu mm <=5 LINING CELLS (BEAKER) (test wtyp=6578) 0 /cu mm <=1 NEUTROPHILS FLUID (BEAKER) (test akkt=5602) 87 % LYMPHS FLUID (BEAKER) (test aqfd=450) 3 % MONO/MACROPHAGE FLUID (BEAKER) (test bagm=172) 10 % EOSINOPHILS FLUID (BEAKER) (test zvyw=196) 0 % BASO FLUID (BEAKER) (test mrvg=843) 0 % CONTAINER BODY FLUID (BEAKER) (test rrci=2893) EDTA Tube Intracellular bacteria seen on stained smear.POCT-GLUCOSE [id number] 18:04: 00 Test Item Value Reference Range Comments POC-GLUCOSE METER (BEAKER) 119 mg/dL 70-110 TESTED AT [address] (test dcct=9957) [place] [address] U/S, [id number] 17:02:00Reason for exam:->poss bile leakShould this be performed at the bedside?->YesFINAL REPORT Paracentesis: Performing MD: Nadege Arriaga M.D.Preoperative Diagnosis: AscitesPostoperative Diagnosis: AscitesAssistant: noneSpecimen: As requestedEstimated Blood Loss: less than 10 ccComplications: noneAnesthesia: local 2% subcutaneously at the insertion site Grafts or Implants: noneModality: sonographySedation: noneApproach: Right lower quadrant, anterior abdominalwall Technique: After informed written consent was obtained, the patient was prepped and draped in the usual sterile manner. Access was obtained using sonographic guidance. Images documented fluid.The images were saved to PACS. The right lower quadrant anterior abdominal wall was instrumented.A small bore catheter was advanced into the peritoneal space. The patient tolerated the procedure well. Impression:Successful, uncomplicated ultrasound guided paracentesis of the right lower quadrant peritoneal space. 1400 cc of serous sanguinous fluid was removed. Signed: Nadege Arriaga MDReport Verified Date/ Time: 08/02/2018 17:02:52 Reading Location: [address] Ultrasound Reading Room [id number] 13:04:00 Test Item Value Reference Range Comments MAGNESIUM (BEAKER) (test 3.0 mg/dL 1.6-2.6 Specimen slightly hemolyzed malv=386) POCT-GLUCOSE [id number] 12:43:00 Test Item Value Reference Range Comments POC-GLUCOSE METER (BEAKER) 146 mg/dL 70-110 TESTED AT [address] (test ehws=6772) [facility] [address] HEPATITIS C PCR, [id number] 08:53:00 Test Item Value Reference Range Comments HCV NUMERIC RESULT (BEAKER) (test xoae=5112) [id number] IU/mL <15 This test uses a Real-Time Polymerase Chain Reaction (RT-PCR) methodology and was performed using JOY Ampliprep/JOY TaqMan HCV test kit version 2.0 ( [employer]).Reportable range for this assay is 15 - 100,000, 000 IU per mL (1.18 - 8.00 Log IU/mL).RAD, CHEST, 1 VIEW, NON [id number] 08: 35:00Reason for exam:->pleural effusion vs atelectasisShould this be performed at the bedside?->YesFINAL REPORT Portable chest. CLINICAL HISTORY: pleural effusion vs atelectasis. COMPARISON STUDY: Chest x-ray from yesterday. FINDINGS: The cardiac silhouette is unremarkable. The pulmonary parenchyma demonstrates atelectatic changes. A left PICC line remains. No pneumothorax isseen. Several old, healed left-sided rib fractures are seen. IMPRESSION: No significant change. Signed: Gideon Aikeneport Verified Date/Time: 08/02/2018 08:35:29 Reading Location: [facility] Radiology Reading Room Electronically signed by: GIDEON AIKEN M.D. on 08:35 AMURINALYSIS W/ [id number] 07:15:00 Test Item Value Reference Range Comments COLOR (BEAKER) (test fesq=815) Yellow CLARITY (BEAKER) (test ugmh=273) Hazy SPECIFIC GRAVITY UA (BEAKER) (test 1.017 1.001-1.035 narz=297) PH UA (BEAKER) (test ehpg=499) 5.5 5.0-8.0 PROTEIN UA (BEAKER) (test rppg=501) 20 mg/dL Negative GLUCOSE UA (BEAKER) (test xken=381) Negative Negative KETONES UA (BEAKER) (test orei=617) Negative Negative BILIRUBIN UA (BEAKER) (test pdtt=357) Negative Negative BLOOD UA (BEAKER) (test gqbi=129) Trace Negative NITRITE UA (BEAKER) (test euzv=669) Negative Negative LEUKOCYTE ESTERASE UA (BEAKER) (test Small Negative jito=780) UROBILINOGEN UA (BEAKER) (test vcns=746) 0.2 mg/dL 0.2-1.0 RBC UA (BEAKER) (test glig=982) 4 /HPF WBC UA (BEAKER) (test jgna=813) 17 /HPF BACTERIA (BEAKER) (test yttw=869) Rare MUCUS (BEAKER) (test qqtw=7287) Rare SQUAMOUS EPITHELIAL (BEAKER) (test 8 /HPF sfph=423) HYALINE CASTS (BEAKER) (test zfwe=810) 28 /LPF AMORPHOUS CRYSTALS (BEAKER) (test Occasional ywhh=6782) SOURCE(BEAKER) (test afqx=8240) Urine, Clean Catch CALCIUM, [id number] 06:57:00 Test Item Value Reference Range Comments CALCIUM IONIZED (BEAKER) (test ehrm=594) 1.04 mmol/L 1.12-1.27 PH, BLOOD (BEAKER) (test vtti=6767) 7.27 COMPREHENSIVE METABOLIC [id number] 06:43:00 Test Item Value Reference Range Comments TOTAL PROTEIN (BEAKER) 5.7 gm/dL 6.0-8.3 Specimen slightly (test zgav=251) hemolyzed ALBUMIN (BEAKER) (test 2.5 g/dL 3.5-5.0 Specimen slightly fjob=2168) hemolyzed ALKALINE PHOSPHATASE 94 U/L 40-150 (BEAKER) (test zjyi=384) BILIRUBIN TOTAL (BEAKER) 2.6 mg/dL 0.2-1.2 Specimen slightly (test hmpg=988) hemolyzed SODIUM (BEAKER) (test 132 meq/L 136-145 hufy=317) POTASSIUM (BEAKER) (test 4.5 meq/L 3.5-5.1 Specimen slightly kthu=759) hemolyzed CHLORIDE (BEAKER) (test 103 meq/L 98-107 xtjz=999) CO2 (BEAKER) (test 21 meq/L 22-29 ofbz=115) BLOOD UREA NITROGEN 90 mg/dL 7-21 (BEAKER) (test nido=163) CREATININE (BEAKER) (test 2.79 mg/dL 0.57-1.25 Specimen slightly rarw=757) hemolyzed GLUCOSE RANDOM (BEAKER) 98 mg/dL 70-105 (test hhbx=302) CALCIUM (BEAKER) (test 8.1 mg/dL 8.4-10.2 izrs=796) AST (SGOT) (BEAKER) (test 59 U/L 5-34 Specimen slightly zbuy=877) hemolyzed ALT (SGPT) (BEAKER) (test 40 U/L 6-55 Specimen slightly syyn=176) hemolyzed EGFR (BEAKER) (test 24 mL/min/1.73 sq m ESTIMATED GFR IS NOT omhi=7925) ACCURATE CREATININE CLEARANCE IN PREDICTING GLOMERULAR FILTRATION RATE. ESTIMATED GFR IS NOT APPLICABLE FOR DIALYSIS PATIENTS. BASIC METABOLIC [id number] 06:43:00 Test Item Value Reference Range Comments SODIUM (BEAKER) (test 132 meq/L 136-145 nwur=515) POTASSIUM (BEAKER) (test 4.5 meq/L 3.5-5.1 Specimen slightly esnt=069) hemolyzed CHLORIDE (BEAKER) (test 103 meq/L 98-107 ymih=666) CO2 (BEAKER) (test 21 meq/L 22-29 reag=978) BLOOD UREA NITROGEN 90 mg/dL 7-21 (BEAKER) (test vacu=290) CREATININE (BEAKER) (test 2.79 mg/dL 0.57-1.25 Specimen slightly gdlf=873) hemolyzed GLUCOSE RANDOM (BEAKER) 98 mg/dL 70-105 (test ymsl=626) CALCIUM (BEAKER) (test 8.1 mg/dL 8.4-10.2 dppd=814) EGFR (BEAKER) (test 24 mL/min/1.73 sq m ESTIMATED GFR IS NOT bflb=5145) ACCURATE CREATININE CLEARANCE IN PREDICTING GLOMERULAR FILTRATION RATE. ESTIMATED GFR IS NOT APPLICABLE FOR DIALYSIS PATIENTS. [id number] 06:42:00 Test Item Value Reference Range Comments MAGNESIUM (BEAKER) (test 3.2 mg/dL 1.6-2.6 Specimen slightly hemolyzed nsuh=635) [id number] 06:42:00 Test Item Value Reference Range Comments PHOSPHORUS (BEAKER) (test 4.1 mg/dL 2.3-4.7 Specimen slightly hemolyzed riox=833) BILIRUBIN, [id number] 06:42:00 Test Item Value Reference Range Comments BILIRUBIN DIRECT (BEAKER) (test 1.7 mg/dL 0.1-0.5 Specimen slightly hemolyzed ppcb=728) CREATINE KINASE (CK)2018-08-02 06:42:00 Test Item Value Reference Range Comments CREATINE KINASE TOTAL (BEAKER) (test crix=102) 114 U/L 29-200 B-TYPE NATRIURETIC FACTOR (BNP)2018-08-02 06:37:00 Test Item Value Reference Range Comments B-TYPE NATRIURETIC PEPTIDE (BEAKER) (test 127 pg/mL 0-100 sahl=614) [id number] 06:27:00 Test Item Value Reference Range Comments PROTIME (BEAKER) (test dhel=105) 17.0 seconds 11.7-14.7 INR (BEAKER) (test maam=562) 1.4 <=5.9 PARTIAL THROMBOPLASTIN TIME (BEAKER) (test 36.8 seconds 22.5-36.0 nwlk=521) RECOMMENDED COUMADIN/WARFARIN INR THERAPY RANGESSTANDARD DOSE: 2.0 - 3.0 Includes: PROPHYLAXIS forvenous thrombosis, systemic embolization; TREATMENT for venous thrombosis and/or pulmonary embolus.HIGH RISK: Target INR is 2.5-3.5 for patients with mechanical heart valves.CBC W/PLT COUNT & AUTO [id number] 06:24:00 Test Item Value Reference Range Comments WHITE BLOOD CELL COUNT (BEAKER) (test wpbv=298) 15.6 K/ L 3.5-10.5 RED BLOOD CELL COUNT (BEAKER) (test htoj=473) 4.44 M/ L 4.63-6.08 HEMOGLOBIN (BEAKER) (test eodx=563) 14.0 GM/DL 13.7-17.5 HEMATOCRIT (BEAKER) (test ifjr=909) 42.3 % 40.1-51.0 MEAN CORPUSCULAR VOLUME (BEAKER) (test ikcu=824) 95.3 fL 79.0-92.2 MEAN CORPUSCULAR HEMOGLOBIN (BEAKER) (test 31.5 pg 25.7-32.2 kymm=007) MEAN CORPUSCULAR HEMOGLOBIN CONC (BEAKER) (test 33.1 GM/DL 32.3-36.5 zgyg=029) RED CELL DISTRIBUTION WIDTH (BEAKER) (test 15.6 % 11.6-14.4 gcjl=683) PLATELET COUNT (BEAKER) (test vvkq=178) 63 K/CU MM 150-450 MEAN PLATELET VOLUME (BEAKER) (test zrwv=976) 10.0 fL 9.4-12.4 NUCLEATED RED BLOOD CELLS (BEAKER) (test 0 /100 WBC 0-0 zmcd=981) NEUTROPHILS RELATIVE PERCENT (BEAKER) (test 85 % jbpu=136) LYMPHOCYTES RELATIVE PERCENT (BEAKER) (test 5 % qpjo=511) MONOCYTES RELATIVE PERCENT (BEAKER) (test 9 % agrd=573) EOSINOPHILS RELATIVE PERCENT (BEAKER) (test 0 % jhsi=253) BASOPHILS RELATIVE PERCENT (BEAKER) (test 0 % lcfx=722) NEUTROPHILS ABSOLUTE COUNT (BEAKER) (test 13.23 K/ L 1.78-5.38 xtpo=699) LYMPHOCYTES ABSOLUTE COUNT (BEAKER) (test 0.73 K/ L 1.32-3.57 trgg=685) MONOCYTES ABSOLUTE COUNT (BEAKER) (test nycw=915) 1.39 K/ L 0.30-0.82 EOSINOPHILS ABSOLUTE COUNT (BEAKER) (test 0.04 K/ L 0.04-0.54 cgkj=115) BASOPHILS ABSOLUTE COUNT (BEAKER) (test dkiv=697) 0.04 K/ L 0.01-0.08 IMMATURE GRANULOCYTES-RELATIVE PERCENT (BEAKER) 1 % 0-1 (test grva=5825) POCT-GLUCOSE [id number] 06:23:00 Test Item Value Reference Range Comments POC-GLUCOSE METER (BEAKER) 125 mg/dL 70-110 TESTED AT [address] (test wfge=0652) [place] [address] CREATININE, RANDOM [id number] 06:01:00 Test Item Value Reference Range Comments CREATININE URINE (BEAKER) (test etft=778) 110.8 mg/dL Reference Range: No NormalsPROTEIN, RANDOM [id number] 06:01:00 Test Item Value Reference Range Comments PROTEIN, URINE (BEAKER) (test xwni=8745) 33 mg/dL 0-14 POCT-GLUCOSE [id number] 05:48:00 Test Item Value Reference Range Comments POC-GLUCOSE METER (BEAKER) 115 mg/dL 70-110 TESTED AT [address] (test aztc=5235) [place] [address] BASIC METABOLIC [id number] 18:13:00 Test Item Value Reference Range Comments SODIUM (BEAKER) (test 134 meq/L 136-145 nfbc=760) POTASSIUM (BEAKER) (test 4.2 meq/L 3.5-5.1 uhvs=653) CHLORIDE (BEAKER) (test 104 meq/L 98-107 qpbk=304) CO2 (BEAKER) (test 22 meq/L 22-29 xhwk=279) BLOOD UREA NITROGEN 90 mg/dL 7-21 (BEAKER) (test wrnz=712) CREATININE (BEAKER) (test 3.06 mg/dL 0.57-1.25 hhxc=090) GLUCOSE RANDOM (BEAKER) 130 mg/dL 70-105 (test auao=639) CALCIUM (BEAKER) (test 8.1 mg/dL 8.4-10.2 okym=456) EGFR (BEAKER) (test 21 mL/min/1.73 sq m ESTIMATED GFR IS NOT tgzn=3097) ACCURATE CREATININE CLEARANCE IN PREDICTING GLOMERULAR FILTRATION RATE. ESTIMATED GFR IS NOT APPLICABLE FOR DIALYSIS PATIENTS. [id number] 18:05:00 Test Item Value Reference Range Comments MAGNESIUM (BEAKER) (test iblo=195) 2.9 mg/dL 1.6-2.6 RAD, CHEST, 1 VIEW, NON [id number] 17:57:00Reason for exam:->picc repositionShould this be performed at the bedside?->YesFINAL REPORT INDICATION: picc reposition COMPARISON:August 01 at 7:16 AM TECHNIQUE: Chest radiograph, single view, portable technique. FINDINGS / IMPRESSION: Left-sided PICC line has been withdrawn from the azygos vein with the tip now in the mid SVC. Lung volumes are low which decreases diagnostic accuracy. No definite consolidation or pulmonary edema. No pneumothorax or pleural effusion demonstrated. Cardiac and mediastinal contours unremarkable for portable technique. Signed: Newton Casper MDReport Verified Date/Time: 08/01/2018 17:57:36 Reading Location: [facility] Radiology Reading Room POCT-GLUCOSE [id number] 17:36:00 Test Item Value Reference Range Comments POC-GLUCOSE METER (BEAKER) 140 mg/dL 70-110 TESTED AT [address] (test aeqm=8406) [place] [address] POCT-GLUCOSE [id number] 17:35:00 Test Item Value Reference Range Comments POC-GLUCOSE METER (BEAKER) 137 mg/dL 70-110 TESTED AT [address] (test dcbk=6801) [place] [address] SURGICALLY OBTAINED CULTURE + GRAM [id number] 15:10:00 Test Item Value Reference Range Comments CULTURE (BEAKER) (test ESCHERICHIA COLI <1+ Escherichia coli wxlu=3080) Amikacin (test code=1) Ampicillin + Sulbactam (test code=6) Aztreonam (test code=32) Cefepime (test code=51) Cefoxitin (test code=68) Ceftazidime (test code=27) Ceftriaxone (test code=52) Ertapenem (test code=38) Gentamicin (test code=18) Levofloxacin (test code=22) Meropenem (test code=34) Nitrofurantoin (test code=23) Piperacillin + Tazobactam (test code=29) Tetracycline (test code=2) Tobramycin (test code=25) Trimethoprim + Sulfamethoxazole (test code=47) GRAM STAIN RESULT (BEAKER) <1+ White blood cells (test bmkg=0485) seen GRAM STAIN RESULT (BEAKER) No organisms seen (test ydsz=361601) POCT-GLUCOSE [id number] 12:06:00 Test Item Value Reference Range Comments POC-GLUCOSE METER (BEAKER) 135 mg/dL 70-110 TESTED AT [facility] [address] [facility] (test wmhg=9032) [facility] [address] JUAN [place] TITER AND [id number] 10:10:00 Test Item Value Reference Range Comments JUAN DIEGO TITER (BEAKER) (test pimh=1222) :160 JU[place]GO PATTERN (BEAKER) (test zntw=4269) Speckled ANTI-NUCLEAR ANTIBODY (JUAN DIEGO)2018-08-01 10:09:00 Test Item Value Reference Range Comments ANTI-NUCLEAR ANTIBODY (JUAN DIEGO) (BEAKER) (test Positive Negative buqw=791) Test performed by IFA method.CBC W/PLT COUNT & AUTO [id number] 08:55:00 Test Item Value Reference Range Comments WHITE BLOOD CELL COUNT (BEAKER) (test xgum=543) 14.9 K/ L 3.5-10.5 RED BLOOD CELL COUNT (BEAKER) (test lonc=183) 4.25 M/ L 4.63-6.08 HEMOGLOBIN (BEAKER) (test llsn=267) 13.5 GM/DL 13.7-17.5 HEMATOCRIT (BEAKER) (test fzgq=757) 40.2 % 40.1-51.0 MEAN CORPUSCULAR VOLUME (BEAKER) (test wmuq=972) 94.6 fL 79.0-92.2 MEAN CORPUSCULAR HEMOGLOBIN (BEAKER) (test 31.8 pg 25.7-32.2 ypwr=292) MEAN CORPUSCULAR HEMOGLOBIN CONC (BEAKER) (test 33.6 GM/DL 32.3-36.5 jzrh=821) RED CELL DISTRIBUTION WIDTH (BEAKER) (test 15.4 % 11.6-14.4 majn=058) PLATELET COUNT (BEAKER) (test wanv=563) 74 K/CU MM 150-450 MEAN PLATELET VOLUME (BEAKER) (test qztw=054) 10.3 fL 9.4-12.4 NUCLEATED RED BLOOD CELLS (BEAKER) (test 0 /100 WBC 0-0 ogoj=085) (CELLAVISION MANUAL DIFF)2018-08-01 08:55:00 Test Item Value Reference Range Comments NEUTROPHILS - REL (CELLAVISION)(BEAKER) (test 90 % yuie=6482) LYMPHOCYTES - REL (CELLAVISION)(BEAKER) (test 1 % xorr=8125) MONOCYTES - REL (CELLAVISION)(BEAKER) (test 4 % ifxp=1734) BANDS - REL (CELLAVISION)(BEAKER) (test 5 % 0-10 gzzu=0022) NEUTROPHILS - ABS (CELLAVISION)(BEAKER) (test 13.41 K/ul 1.78-5.38 ahbj=7429) LYMPHOCYTES - ABS (CELLAVISION)(BEAKER) (test 0.15 K/ul 1.32-3.57 wutc=2267) MONOCYTES - ABS (CELLAVISION)(BEAKER) (test 0.60 K/uL 0.30-0.82 bjxo=4275) BANDS - ABS (CELLAVISION)(BEAKER) (test 0.75 K/uL 0.00-0.80 shzx=7132) TOTAL COUNTED (BEAKER) (test ezkh=5699) 100 WBC MORPHOLOGY (BEAKER) (test rlyd=225) Normal PLT MORPHOLOGY (BEAKER) (test qqnv=025) Normal ANISOCYTOSIS (BEAKER) (test cwzy=911) 2+ moderate MACROCYTES (BEAKER) (test ayxg=931) 2+ moderate POIKILOCYTES (BEAKER) (test rpvx=643) 2+ moderate ABBI CELLS (BEAKER) (test bqys=668) 1+ few ARTIFACT (CELLAVISION)(BEAKER) (test xvoi=6953) Present PLATELET CONCENTRATION (CELLAVISION)(BEAKER) Decreased (test rcwp=4409) Received comment: User comments: Slide comments:RAD, CHEST, 1 VIEW, NON [id number] 08:44:00Reason for exam:->pleural effusion vs atelectasisShould this be performed at the bedside?->YesFINAL REPORT TECHNIQUE: Frontal view of the chest. INDICATION: 58-year-old man with pleural effusion versus atelectasis. COMPARISON: Chest radiograph 07/31/2018. FINDINGS: LINES/TUBES: Interval retraction of the left upper extremity PICC; the curved morphology of the tip suggests that the it may be coiled in the superior vena cava or may be now located within the azygos vein. Unchanged nasogastric/ orogastric tube. LUNGS: Persistent low lung volumes. No consolidation or pulmonary edema. PLEURA: No pneumothorax or significant pleural effusion. HEART AND MEDIASTINUM: The cardiomediastinal silhouette is unchanged. 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 Soft tissues are unremarkable. IMPRESSION:Lines/tubes as above. Otherwise, noacute cardiopulmonary abnormalities. Signed: Efren Rossa MDReport Verified Date/ Time: 08/01/2018 08:44:53 Reading Location: [facility] Radiology Reading Room POCT-GLUCOSE [id number] 06:35:00 Test Item Value Reference Range Comments POC-GLUCOSE METER (BANNER) 133 mg/dL 70-110 TESTED AT [facility] [address] [place] [address] (test ttzz=9291) [facility] [address] CALCIUM, [id number] 06:28:00 Test Item Value Reference Range Comments CALCIUM IONIZED (BEAKER) (test utbc=297) 1.11 mmol/L 1.12-1.27 PH, BLOOD (BEAKER) (test khvs=6776) 7.30 HEPATITIS B CORE ANTIBODY, [id number] 06:19:00 Test Item Value Reference Range Comments HEPATITIS B CORE TOTAL ANTIBODY (BEAKER) (test Reactive Nonreactive dkdv=445) COMPREHENSIVE METABOLIC [id number] 05:12:00 Test Item Value Reference Range Comments TOTAL PROTEIN (BEAKER) 4.8 gm/dL 6.0-8.3 (test tswj=608) ALBUMIN (BEAKER) (test 2.2 g/dL 3.5-5.0 cxck=0505) ALKALINE PHOSPHATASE 77 U/L 40-150 (BEAKER) (test kjuu=549) BILIRUBIN TOTAL (BEAKER) 2.6 mg/dL 0.2-1.2 (test icfy=743) SODIUM (BEAKER) (test 133 meq/L 136-145 mnxr=555) POTASSIUM (BEAKER) (test 3.8 meq/L 3.5-5.1 mzpz=414) CHLORIDE (BEAKER) (test 102 meq/L 98-107 jlpx=798) CO2 (BEAKER) (test 21 meq/L 22-29 xisj=473) BLOOD UREA NITROGEN 88 mg/dL 7-21 (BEAKER) (test idon=148) CREATININE (BEAKER) (test 3.36 mg/dL 0.57-1.25 xxkv=927) GLUCOSE RANDOM (BEAKER) 118 mg/dL 70-105 (test cmdn=126) CALCIUM (BEAKER) (test 8.1 mg/dL 8.4-10.2 gemv=282) AST (SGOT) (BEAKER) (test 70 U/L 5-34 cyku=786) ALT (SGPT) (BEAKER) (test 45 U/L 6-55 pqop=024) EGFR (BEAKER) (test 19 mL/min/1.73 sq m ESTIMATED GFR IS NOT rtte=7685) ACCURATE CREATININE CLEARANCE IN PREDICTING GLOMERULAR FILTRATION RATE. ESTIMATED GFR IS NOT APPLICABLE FOR DIALYSIS PATIENTS. [id number] 05:05:00 Test Item Value Reference Range Comments PHOSPHORUS (BEAKER) (test dffs=195) 5.6 mg/dL 2.3-4.7 [id number] 05:05:00 Test Item Value Reference Range Comments MAGNESIUM (BEAKER) (test tlbw=372) 2.9 mg/dL 1.6-2.6 BILIRUBIN, [id number] 05:05:00 Test Item Value Reference Range Comments BILIRUBIN DIRECT (BEAKER) (test secu=115) 2.0 mg/dL 0.1-0.5 LACTIC ACID, VENOUS, WHOLE [id number] 04:48:00 Test Item Value Reference Range Comments LACTATE BLOOD VENOUS (2) (BEAKER) (test 1.3 mmol/L 0.5-2.2 pqmc=7646) [id number] 04:46:00 Test Item Value Reference Range Comments PROTIME (BEAKER) (test aipf=047) 18.4 seconds 11.7-14.7 INR (BEAKER) (test kyaj=470) 1.5 <=5.9 PARTIAL THROMBOPLASTIN TIME (BEAKER) (test 36.5 seconds 22.5-36.0 wnmo=968) RECOMMENDED COUMADIN/WARFARIN INR THERAPY RANGESSTANDARD DOSE: 2.0 - 3.0 Includes: PROPHYLAXIS forvenous thrombosis, systemic embolization; TREATMENT for venous thrombosis and/or pulmonary embolus.HIGH RISK: Target INR is 2.5-3.5 for patients with mechanical heart valves.HEPATITIS B SURFACE [id number] 03:55:00 Test Item Value Reference Range Comments HEPATITIS B SURFACE ANTIBODY (BEAKER) (test < mIU/mL <8.0 mocs=893) BASIC METABOLIC [id number] 02:50:00 Test Item Value Reference Range Comments SODIUM (BEAKER) (test 131 meq/L 136-145 rwni=248) POTASSIUM (BEAKER) (test 3.8 meq/L 3.5-5.1 jbqy=063) CHLORIDE (BEAKER) (test 100 meq/L 98-107 aojj=071) CO2 (BEAKER) (test 21 meq/L 22-29 dsau=076) BLOOD UREA NITROGEN 85 mg/dL 7-21 (BEAKER) (test anez=180) CREATININE (BEAKER) (test 3.38 mg/dL 0.57-1.25 kulp=264) GLUCOSE RANDOM (BEAKER) 128 mg/dL 70-105 (test icrl=496) CALCIUM (BEAKER) (test 7.9 mg/dL 8.4-10.2 zpjx=322) EGFR (BEAKER) (test 19 mL/min/1.73 sq m ESTIMATED GFR IS NOT narm=2656) ACCURATE CREATININE CLEARANCE IN PREDICTING GLOMERULAR FILTRATION RATE. ESTIMATED GFR IS NOT APPLICABLE FOR DIALYSIS PATIENTS. Specimen slightly ictericPOCT-GLUCOSE [id number] 01:55:00 Test Item Value Reference Range Comments POC-GLUCOSE METER (BEAKER) 141 mg/dL 70-110 TESTED AT [facility] [address] [facility] (test kvta=3799) [facility] [address] TROPONIN [id number] 01:09:00 Test Item Value Reference Range Comments TROPONIN I (BEAKER) (test hxwx=314) 0.01 ng/mL 0.00-0.03 Troponin I (TnI) levels must be interpreted in the context of the presenting symptoms and the clinical findings. Elevated TnI levels indicate myocardial damage, but are not specific for ischemic heart disease. Elevated TnI levels are seen in patients with other cardiac conditions (including myocarditis and congestive heart failure), and slight TnI elevations occur in patients with other conditions, including sepsis, renal failure, acidosis, acute neurological disease, and persistent tachyarrhythmia.ALPHA FETOPROTEIN (AFP), TUMOR [id number] 01:09:00 Test Item Value Reference Range Comments ALPHA-FETOPROTEIN (BEAKER) (test ljtk=4218) 8541.3 ng/mL <10.0 POCT-GLUCOSE [id number] 00:08:00 Test Item Value Reference Range Comments POC-GLUCOSE METER (BEAKER) 122 mg/dL 70-110 TESTED AT [facility] [address] [facility] (test othu=8628) [facility] [address] [id number] 22:55:00 Test Item Value Reference Range Comments TRIGLYCERIDES (BEAKER) (test iqlo=570) 53 mg/dL TRIGLYCERIDE REFERENCE RANGELow Risk <150Borderline Risk 150-199High Risk 200-499Very High Risk>=500Specimen slightly ictericC-REACTIVE [id number] 22:55:00 Test Item Value Reference Range Comments C-REACTIVE PROTEIN (BEAKER) (test hxhx=471) 20.08 mg/dL 0.00-0.50 CARCINOEMBRYONIC ANTIGEN (CEA)2018-07-31 22:48:00 Test Item Value Reference Range Comments CARCINOEMBRYONIC ANTIGEN (BEAKER) (test smun=317) 1.9 ng/mL 0.0-5.0 HEPATITIS A ANTIBODY, [id number] 22:48:00 Test Item Value Reference Range Comments HEPATITIS A IGG ANTIBODY (BEAKER) (test Nonreactive Nonreactive agcu=0808) HEPATITIS B SURFACE [id number] 22:43:00 Test Item Value Reference Range Comments HEPATITIS B SURFACE ANTIGEN (2) (BEAKER) (test Nonreactive Nonreactive oulc=2068) [id number] 22:23:00 Test Item Value Reference Range Comments ALPHA-1 ANTITRYPSIN (BEAKER) (test xypf=068) 258.30 mg/dL 90.00-200.00 LACTIC ACID, ARTERIAL, WHOLE [id number] 22:05:00 Test Item Value Reference Range Comments LACTATE BLOOD ARTERIAL (2) (BEAKER) (test 1.4 mmol/L 0.5-2.2 oula=9315) POCT-GLUCOSE [id number] 19:22:00 Test Item Value Reference Range Comments POC-GLUCOSE METER (BEAKER) 101 mg/dL 70-110 TESTED AT [facility] [address] [facility] (test rcqt=1847) [facility] [address] IRON, TIBC, % SAT. (WITHOUT FERRITIN)2018-07-31 18:03:00 Test Item Value Reference Range Comments IRON (BEAKER) (test jtbr=978) 10.0 ug/dL 40.0-160.0 TOTAL IRON BINDING CAPACITY (BEAKER) (test 83 ug/dL 250-450 zzti=661) IRON % SATURATION (2) (BEAKER) (test sxcr=8803) 12 % 20-55 LACTIC ACID, ARTERIAL, WHOLE [id number] 17:56:00 Test Item Value Reference Range Comments LACTATE BLOOD ARTERIAL (2) 1.8 mmol/L 0.5-2.2 Specimen slightly hemolyzed (BEAKER) (test xwap=0787) [id number] 17:10:00 Test Item Value Reference Range Comments FERRITIN (BEAKER) (test ojkw=563) 485 ng/mL 5-275 U/S, ABDOMINAL, WITH [id number] 17:05:00Reason for exam:->cirrhosis Should this be performed at the bedside?->YesFINAL REPORT Complete Abdominal Ultrasound History: Cirrhosis Comparison: none Findings:The liver appears cirrhotic. No definite hepatic mass [...] measures 12.4 x 6.5 x 5.6cm. Borderline splenomegaly , with spleen measuring 14.1 cm in craniocaudal dimension. Normal caliber of the visualized abdominal aorta. No apparent filling defect in the visualized inferior vena cava. Impression: 1. Hepatic cirrhosis.2. Mild perihepatic ascites.3. Borderline splenomegaly. Signed: Cuco Pastrana MDReport Verified Date/Time: 07/31/2018 17:05:57 Reading Location: [facility] C013X Ortho Consult Reading Room 05: 05 PMVANCOMYCIN LEVEL, [id number] 16:50:00 Test Item Value Reference Range Comments VANCOMYCIN TROUGH (BEAKER) (test snbq=718) 40.6 ug/mL 10.0-20.0 [id number] 16:41:00 Test Item Value Reference Range Comments MAGNESIUM (BEAKER) (test odpj=870) 2.5 mg/dL 1.6-2.6 RAD, CHEST, 1 VIEW, NON [id number] 16:05:00Reason for exam:->PICC LINE PLACEMENTShould this be performed at the bedside?->YesFINAL REPORT Comparison: 07/31/2018 at 4:17 AM TECHNIQUE: Single view of the chest FINDINGS: Tip of the recently placed left PICC line projects at the cavoatrial junction. Endotracheal tube has been removed. No other significant change. Signed: Armen Peckort Verified Date/Time: 07/31/2018 16:05:05 Reading Location: [facility] C013W Consult Reading Room OSMOLALITY, [id number] 15:05: 00 Test Item Value Reference Range Comments OSMOLALITY URINE (BEAKER) (test ozru=288) 379 mOsm/kg 40-1,400 SODIUM, RANDOM [id number] 13:13:00 Test Item Value Reference Range Comments SODIUM URINE (BEAKER) (test bsjx=949) < meq/L Reference Range: No NormalsCREATININE, RANDOM [id number] 13:07:00 Test Item Value Reference Range Comments CREATININE URINE (BEAKER) (test qacx=604) 166.7 mg/dL Reference Range: No NormalsUREA NITROGEN, RANDOM [id number] 13:07:00 Test Item Value Reference Range Comments UREA NITROGEN URINE (BEAKER) (test orkg=887) 464 mg/dL Reference Range: No NormalsPOCT-GLUCOSE [id number] 12:11:00 Test Item Value Reference Range Comments POC-GLUCOSE METER (BEAKER) 110 mg/dL 70-110 TESTED AT [facility] [address] [place] [address] (test umql=9973) [facility] [address] OSMOLALITY, [id number] 11:25:00 Test Item Value Reference Range Comments OSMOLALITY, SERUM (BEAKER) (test kppl=364) 301 mOsm/kg 275-295 BASIC METABOLIC [id number] 10:31:00 Test Item Value Reference Range Comments SODIUM (BEAKER) (test 128 meq/L 136-145 inub=717) POTASSIUM (BEAKER) (test 4.4 meq/L 3.5-5.1 Specimen slightly ugdw=815) hemolyzed CHLORIDE (BEAKER) (test 100 meq/L 98-107 mpfo=404) CO2 (BEAKER) (test 17 meq/L 22-29 lzxx=942) BLOOD UREA NITROGEN 76 mg/dL 7-21 (BEAKER) (test lmli=039) CREATININE (BEAKER) (test 3.38 mg/dL 0.57-1.25 Specimen slightly zxam=490) hemolyzed GLUCOSE RANDOM (BEAKER) 111 mg/dL 70-105 (test qvdo=357) CALCIUM (BEAKER) (test 7.8 mg/dL 8.4-10.2 cjwt=906) EGFR (BEAKER) (test 19 mL/min/1.73 sq m ESTIMATED GFR IS NOT tcel=5908) ACCURATE CREATININE CLEARANCE IN PREDICTING GLOMERULAR FILTRATION RATE. ESTIMATED GFR IS NOT APPLICABLE FOR DIALYSIS PATIENTS. Specimen slightly ictericHEPATIC FUNCTION [id number] 10:27:00 Test Item Value Reference Range Comments TOTAL PROTEIN (BEAKER) (test odej=088) 5.1 gm/dL 6.0-8.3 ALBUMIN (BEAKER) (test ggek=5269) 2.5 g/dL 3.5-5.0 BILIRUBIN TOTAL (BEAKER) (test fbwy=935) 3.2 mg/dL 0.2-1.2 BILIRUBIN DIRECT (BEAKER) (test tgvj=169) 2.5 mg/dL 0.1-0.5 ALKALINE PHOSPHATASE (BEAKER) (test xwwi=016) 72 U/L 40-150 AST (SGOT) (BEAKER) (test sglz=031) 87 U/L 5-34 ALT (SGPT) (BEAKER) (test uqio=652) 51 U/L 6-55 Specimen slightly ictericLACTIC ACID, ARTERIAL, WHOLE [id number] 10:22:00 Test Item Value Reference Range Comments LACTATE BLOOD ARTERIAL (2) (BEAKER) (test 2.1 mmol/L 0.5-2.2 inog=5851) Specimen slightly ictericRAD, CHEST, 1 VIEW, NON [id number] 08:05:00Reason for exam:->Intubated patientShould this be performed at the bedside?-> YesFINAL REPORT Chest, one view HISTORY: Respiratory failure Comparison: 07/30/2018 Findings: There may be small bilateral pleural effusions. The underlying lungs appear clear. The heart is normal in size. Feeding tube terminates below the diaphragm. Satisfactory endotracheal tube position. IMPRESSION: No significant interval change. Signed: Cuco Pastrana MDReport Verified Date/Time: 07/31/2018 08:05:10 Reading Location: [facility] C013X [facility] Consult Reading Room CBC W/PLT COUNT & AUTO [id number] 08:03 :00 Test Item Value Reference Range Comments WHITE BLOOD CELL COUNT (BEAKER) (test verc=959) 17.3 K/ L 3.5-10.5 RED BLOOD CELL COUNT (BEAKER) (test afrg=710) 4.54 M/ L 4.63-6.08 HEMOGLOBIN (BEAKER) (test ksbj=653) 14.3 GM/DL 13.7-17.5 HEMATOCRIT (BEAKER) (test rmwj=804) 42.5 % 40.1-51.0 MEAN CORPUSCULAR VOLUME (BEAKER) (test gele=385) 93.6 fL 79.0-92.2 MEAN CORPUSCULAR HEMOGLOBIN (BEAKER) (test 31.5 pg 25.7-32.2 frrq=498) MEAN CORPUSCULAR HEMOGLOBIN CONC (BEAKER) (test 33.6 GM/DL 32.3-36.5 hthl=418) RED CELL DISTRIBUTION WIDTH (BEAKER) (test 15.1 % 11.6-14.4 vtsw=435) PLATELET COUNT (BEAKER) (test pnng=751) 110 K/CU MM 150-450 MEAN PLATELET VOLUME (BEAKER) (test zmsb=340) 10.8 fL 9.4-12.4 NUCLEATED RED BLOOD CELLS (BEAKER) (test 0 /100 WBC 0-0 rlok=821) (CELLAVISION MANUAL DIFF)2018-07-31 08:03:00 Test Item Value Reference Range Comments NEUTROPHILS - REL (CELLAVISION)(BEAKER) (test 77 % ubfd=9796) LYMPHOCYTES - REL (CELLAVISION)(BEAKER) (test 2 % ilnm=1759) MONOCYTES - REL (CELLAVISION)(BEAKER) (test 3 % pcuc=8092) EOSINOPHILS - REL (CELLAVISION)(BEAKER) (test 1 % togo=5749) BANDS - REL (CELLAVISION)(BEAKER) (test 17 % 0-10 zjoa=8319) NEUTROPHILS - ABS (CELLAVISION)(BEAKER) (test 13.32 K/ul 1.78-5.38 xgiu=7703) LYMPHOCYTES - ABS (CELLAVISION)(BEAKER) (test 0.35 K/ul 1.32-3.57 mdih=0912) MONOCYTES - ABS (CELLAVISION)(BEAKER) (test 0.52 K/uL 0.30-0.82 rwie=6449) EOSINOPHILS - ABS (CELLAVISION)(BEAKER) (test 0.17 K/uL 0.04-0.54 skbr=4168) BANDS - ABS (CELLAVISION)(BEAKER) (test 2.94 K/uL 0.00-0.80 irmp=4125) TOTAL COUNTED (BEAKER) (test wvaj=1858) 100 WBC MORPHOLOGY (BEAKER) (test ltgv=869) Normal PLT MORPHOLOGY (BEAKER) (test ifhd=570) Normal ANISOCYTOSIS (BEAKER) (test wydu=291) 1+ few MACROCYTES (BEAKER) (test qlzv=633) 1+ few POIKILOCYTES (BEAKER) (test dhvm=651) 1+ few ABBI CELLS (BEAKER) (test eidk=375) 1+ few ARTIFACT (CELLAVISION)(BEAKER) (test wuus=8123) Present PLATELET CONCENTRATION (CELLAVISION)(BEAKER) Decreased (test nahl=4397) Received comment: User comments: Slide comments:BLOOD GAS, [id number] 07 :09:00 Test Item Value Reference Range Comments PH ARTERIAL (BEAKER) (test hrkp=086) 7.35 7.35-7.45 PCO2 ARTERIAL (BEAKER) (test mvxh=307) 36 mmHg 35-45 PO2 ARTERIAL (BEAKER) (test ucwt=931) 140 mmHg 80-90 O2 SATURATION ARTERIAL (BEAKER) (test kxne=777) 98.7 % 96.0-97.0 HCO3 ARTERIAL (BEAKER) (test uhej=034) 19 mmol/L 21-29 BASE EXCESS ARTERIAL (BEAKER) (test mdem=055) -5.6 mmol/L -2.0-3.0 PATIENT TEMPERATURE (BEAKER) (test dmre=4997) 37.0 C FIO2 (BEAKER) (test ndlb=3595) 21.0 % [id number] 05:25:00 Test Item Value Reference Range Comments PREALBUMIN (BEAKER) (test fdxi=459) 4 mg/dL 14-45 [id number] 04:43:00 Test Item Value Reference Range Comments PROTIME (BEAKER) (test npae=001) 18.8 seconds 11.7-14.7 INR (BEAKER) (test hklh=478) 1.6 <=5.9 PARTIAL THROMBOPLASTIN TIME (BEAKER) (test 35.2 seconds 22.5-36.0 pgth=871) RECOMMENDED COUMADIN/WARFARIN INR THERAPY RANGESSTANDARD DOSE: 2.0 - 3.0 Includes: PROPHYLAXIS forvenous thrombosis, systemic embolization; TREATMENT for venous thrombosis and/or pulmonary embolus.HIGH RISK: Target INR is 2.5-3.5 for patients with mechanical heart valves.LACTIC ACID, ARTERIAL, WHOLE [id number] 04:42:00 Test Item Value Reference Range Comments LACTATE BLOOD ARTERIAL (2) (BEAKER) (test 2.4 mmol/L 0.5-2.2 myai=7194) [id number] 04:37:00 Test Item Value Reference Range Comments PHOSPHORUS (BEAKER) (test ibpm=245) 6.9 mg/dL 2.3-4.7 [id number] 04:37:00 Test Item Value Reference Range Comments MAGNESIUM (BEAKER) (test auom=683) 2.1 mg/dL 1.6-2.6 [id number] 04:37:00 Test Item Value Reference Range Comments ALBUMIN (BEAKER) (test fqku=0420) 2.6 g/dL 3.5-5.0 BASIC METABOLIC [id number] 04:37:00 Test Item Value Reference Range Comments SODIUM (BEAKER) (test 128 meq/L 136-145 goof=035) POTASSIUM (BEAKER) (test 4.3 meq/L 3.5-5.1 qlwq=128) CHLORIDE (BEAKER) (test 98 meq/L 98-107 wyno=309) CO2 (BEAKER) (test 19 meq/L 22-29 cmqp=911) BLOOD UREA NITROGEN 72 mg/dL 7-21 (BEAKER) (test mogh=033) CREATININE (BEAKER) (test 3.21 mg/dL 0.57-1.25 xwnu=690) GLUCOSE RANDOM (BEAKER) 112 mg/dL 70-105 (test qidj=190) CALCIUM (BEAKER) (test 8.0 mg/dL 8.4-10.2 tshm=438) EGFR (BEAKER) (test 20 mL/min/1.73 sq m ESTIMATED GFR IS NOT nmbf=2300) ACCURATE CREATININE CLEARANCE IN PREDICTING GLOMERULAR FILTRATION RATE. ESTIMATED GFR IS NOT APPLICABLE FOR DIALYSIS PATIENTS. Specimen slightly ictericBLOOD GAS, [id number] 04:36:00 Test Item Value Reference Range Comments PH ARTERIAL (BEAKER) (test dtmn=053) 7.32 7.35-7.45 PCO2 ARTERIAL (BEAKER) (test bxyv=037) 41 mmHg 35-45 PO2 ARTERIAL (BEAKER) (test rpou=320) 151 mmHg 80-90 O2 SATURATION ARTERIAL (BEAKER) (test wffu=795) 98.8 % 96.0-97.0 HCO3 ARTERIAL (BEAKER) (test erwh=104) 20 mmol/L 21-29 BASE EXCESS ARTERIAL (BEAKER) (test hxdt=392) -5.6 mmol/L -2.0-3.0 PATIENT TEMPERATURE (BEAKER) (test fguh=1708) 37.0 C FIO2 (BEAKER) (test nkwr=4531) 40.0 % CALCIUM, [id number] 04:36:00 Test Item Value Reference Range Comments CALCIUM IONIZED (BEAKER) (test jysj=194) 1.01 mmol/L 1.12-1.27 PH, BLOOD (BEAKER) (test litu=8500) 7.32 BLOOD CULTURE IDENTIFICATION [id number] 03:17:00 Test Item Value Reference Range Comments LISTERIA MONOCYTOGENES (test Not detected Not detected sdeh=[id number]) STAPHYLOCOCCUS (test Detected Not detected First line therapy: vuqn=[id number]) Cefazolin, Nafcillin (Nafcillin preferred for Central Nervous System infection) Coagulase Negative Staphylococcus (CoNS) DETECTEDmecA NOT DETECTEDReference Range: Not Detected STAPHYLOCOCCUS AUREUS (test Not detected Not detected rabu=5034536) STREPTOCOCCUS (test Not detected Not detected syrk=1541402) STREPTOCOCCUS AGALACTIAE Not detected Not detected (GROUP B) (test xtpn=5909936) STREPTOCOCCUS PNEUMONIAE Not detected Not detected (test zdfk=9647808) STREPTOCOCCUS PYOGENES (GROUP Not detected Not detected A) (test ngea=5854041) ACINETOBACTER BAUMANNII (test Not detected Not detected siav=8081811) HAEMOPHILUS INFLUENZAE (test Not detected Not detected gfvw=6880490) NEISSERIA MENINGITIDIS (test Not detected Not detected kwcr=7418962) ENTEROBACTERIACEAE (test Not detected Not detected cphe=8459760) ENTEROBACTER CLOACOE COMPLEX Not detected Not detected (test ovia=0508296) KLEBSIELLA OXYTOCA (test Not detected Not detected btnl=1017460) KLEBSIELLA PNEUMONIAE (test Not detected Not detected oppr=7330) PROTEUS (test ggdn=2571615) Not detected Not detected SERRATIA MARCESCENS (test Not detected Not detected jwwm=4711493) NIKITA ALBICANS (test Not detected Not detected ujsx=8633443) NIKITA GLABRATA (test Not detected Not detected qvww=9311809) NIKITA KRUSEI (test Not detected Not detected ldas=1200479) NIKITA PARAPSILOSIS (test Not detected Not detected lotj=9096467) NIKITA TROPICALIS (test Not detected Not detected kzvk=5100725) ESCHERICHIA COLI (test Not detected Not detected dryu=9132533) METHICILLIN-RESISTANCE GENE Not detected Not detected (test bmxe=6497608) VANCOMYCIN-RESISTANCE GENE Not detected (test netk=1984236) CARBAPENEM-RESISTANCE GENE Not detected (test tjso=2420926) ENTEROCOCCUS-BEAKER (test Not detected Not detected dpqe=4071155) PSEUDOMONAS AERUGINOSA-BEAKER Not detected Not detected (test ohzf=9720166) Other bacteria and resistance markers not targeted by this PCR panel cannot be excluded; therefore clinical correlation and follow up of serology, culture results, and other molecular studies is required. The results are not intended to be used as the sole means for clinical diagnosis or patient management decisions. This sample was tested at the [facility] using the [employer] Blood Culture ID Panel. It is FDA cleared and has been verified and approved by the [facility] for clinical use. This laboratory is CLIA-certified and College ofAmerican [employer]ologists (CAP)-accredited to perform high complexity testing.BASIC METABOLIC [id number] 01:44:00 Test Item Value Reference Range Comments SODIUM (BEAKER) (test 129 meq/L 136-145 lnyz=516) POTASSIUM (BEAKER) (test 4.5 meq/L 3.5-5.1 mqta=695) CHLORIDE (BEAKER) (test 100 meq/L 98-107 fqhb=794) CO2 (BEAKER) (test 19 meq/L 22-29 jnye=955) BLOOD UREA NITROGEN 68 mg/dL 7-21 (BEAKER) (test begq=068) CREATININE (BEAKER) (test 2.96 mg/dL 0.57-1.25 ilew=554) GLUCOSE RANDOM (BEAKER) 119 mg/dL 70-105 (test viyx=660) CALCIUM (BEAKER) (test 7.7 mg/dL 8.4-10.2 zilm=196) EGFR (BEAKER) (test 22 mL/min/1.73 sq m ESTIMATED GFR IS NOT htgu=1713) ACCURATE CREATININE CLEARANCE IN PREDICTING GLOMERULAR FILTRATION RATE. ESTIMATED GFR IS NOT APPLICABLE FOR DIALYSIS PATIENTS. [id number] 01:40:00 Test Item Value Reference Range Comments MAGNESIUM (BEAKER) (test dnkv=966) 1.9 mg/dL 1.6-2.6 [id number] 01:37:00 Test Item Value Reference Range Comments MAGNESIUM (BEAKER) (test hbdx=314) 1.9 mg/dL 1.6-2.6 HEMOGLOBIN AND [id number] 00:58:00 Test Item Value Reference Range Comments HEMOGLOBIN (BEAKER) (test eofy=165) 15.3 GM/DL 13.7-17.5 HEMATOCRIT (BEAKER) (test zyty=428) 45.5 % 40.1-51.0 HEMOGLOBIN AND [id number] 00:58:00 Test Item Value Reference Range Comments HEMOGLOBIN (BEAKER) (test aldy=183) 15.3 GM/DL 13.7-17.5 HEMATOCRIT (BEAKER) (test yqky=561) 45.5 % 40.1-51.0 POCT-GLUCOSE [id number] 23:40:00 Test Item Value Reference Range Comments POC-GLUCOSE METER (BEAKER) 119 mg/dL 70-110 TESTED AT [address] (test pcti=8478) [place] [address] LACTIC ACID, ARTERIAL, WHOLE [id number] 23:38:00 Test Item Value Reference Range Comments LACTATE BLOOD ARTERIAL (2) (BEAKER) (test 2.8 mmol/L 0.5-2.2 rext=7216) CALCIUM, [id number] 23:22:00 Test Item Value Reference Range Comments CALCIUM IONIZED (BEAKER) (test gzex=154) 0.97 mmol/L 1.12-1.27 PH, BLOOD (BEAKER) (test ltdo=9847) 7.35 POCT-GLUCOSE [id number] 21:40:00 Test Item Value Reference Range Comments POC-GLUCOSE METER (BEAKER) 109 mg/dL 70-110 TESTED AT [address] (test icxk=2778) [place] [address] LACTIC ACID, ARTERIAL, WHOLE [id number] 19:44:00 Test Item Value Reference Range Comments LACTATE BLOOD ARTERIAL (2) 2.4 mmol/L 0.5-2.2 Specimen slightly hemolyzed (BEAKER) (test ypbf=9934) BLOOD GAS, [id number] 16:39:00 Test Item Value Reference Range Comments PH ARTERIAL (BEAKER) (test sass=963) 7.35 7.35-7.45 PCO2 ARTERIAL (BEAKER) (test lmsm=459) 36 mmHg 35-45 PO2 ARTERIAL (BEAKER) (test yylj=500) 156 mmHg 80-90 O2 SATURATION ARTERIAL (BEAKER) (test nxkv=626) 98.9 % 96.0-97.0 HCO3 ARTERIAL (BEAKER) (test ybow=225) 19 mmol/L 21-29 BASE EXCESS ARTERIAL (BEAKER) (test rgwy=622) -5.8 mmol/L -2.0-3.0 PATIENT TEMPERATURE (BEAKER) (test gowm=1936) 37.0 C FIO2 (BEAKER) (test dlkh=1840) 40.0 % BASIC METABOLIC [id number] 15:08:00 Test Item Value Reference Range Comments SODIUM (BEAKER) (test 128 meq/L 136-145 qbph=790) POTASSIUM (BEAKER) (test 4.0 meq/L 3.5-5.1 Specimen slightly witf=440) hemolyzed CHLORIDE (BEAKER) (test 98 meq/L 98-107 uswa=345) CO2 (BEAKER) (test 19 meq/L 22-29 vtxl=648) BLOOD UREA NITROGEN 60 mg/dL 7-21 (BEAKER) (test cshz=825) CREATININE (BEAKER) (test 2.35 mg/dL 0.57-1.25 Specimen slightly kpdy=193) hemolyzed GLUCOSE RANDOM (BEAKER) 125 mg/dL 70-105 (test skad=879) CALCIUM (BEAKER) (test 7.6 mg/dL 8.4-10.2 jsbt=834) EGFR (BEAKER) (test 29 mL/min/1.73 sq m ESTIMATED GFR IS NOT wbuw=5466) ACCURATE CREATININE CLEARANCE IN PREDICTING GLOMERULAR FILTRATION RATE. ESTIMATED GFR IS NOT APPLICABLE FOR DIALYSIS PATIENTS. Specimen slightly ictericLACTIC ACID, VENOUS, WHOLE [id number] 15:07:00 Test Item Value Reference Range Comments LACTATE BLOOD VENOUS (2) (BEAKER) (test 2.4 mmol/L 0.5-2.2 mqfh=6571) [id number] 15:06:00 Test Item Value Reference Range Comments MAGNESIUM (BEAKER) (test 2.1 mg/dL 1.6-2.6 Specimen slightly hemolyzed bhlv=557) [id number] 15:06:00 Test Item Value Reference Range Comments PHOSPHORUS (BEAKER) (test 6.9 mg/dL 2.3-4.7 Specimen slightly hemolyzed sxuc=114) BLOOD GAS, [id number] 15:05:00 Test Item Value Reference Range Comments PH ARTERIAL (BEAKER) (test abyj=957) 7.38 7.35-7.45 PCO2 ARTERIAL (BEAKER) (test sroa=435) 36 mmHg 35-45 PO2 ARTERIAL (BEAKER) (test cugz=534) 176 mmHg 80-90 O2 SATURATION ARTERIAL (BEAKER) (test rygn=584) 99.2 % 96.0-97.0 HCO3 ARTERIAL (BEAKER) (test xrsn=925) 21 mmol/L 21-29 BASE EXCESS ARTERIAL (BEAKER) (test myvd=044) -4.1 mmol/L -2.0-3.0 PATIENT TEMPERATURE (BEAKER) (test bydz=0220) 36.4 C FIO2 (BEAKER) (test nxzx=7383) 40.0 % CBC (HEMOGRAM ONLY)2018-07-30 14:50:00 Test Item Value Reference Range Comments WHITE BLOOD CELL COUNT (BEAKER) (test shra=633) 15.2 K/ L 3.5-10.5 RED BLOOD CELL COUNT (BEAKER) (test rzpj=462) 4.91 M/ L 4.63-6.08 HEMOGLOBIN (BEAKER) (test wiix=960) 15.6 GM/DL 13.7-17.5 HEMATOCRIT (BEAKER) (test krux=766) 45.6 % 40.1-51.0 MEAN CORPUSCULAR VOLUME (BEAKER) (test yrci=504) 92.9 fL 79.0-92.2 MEAN CORPUSCULAR HEMOGLOBIN (BEAKER) (test 31.8 pg 25.7-32.2 lfps=410) MEAN CORPUSCULAR HEMOGLOBIN CONC (BEAKER) (test 34.2 GM/DL 32.3-36.5 gvdt=924) RED CELL DISTRIBUTION WIDTH (BEAKER) (test 15.0 % 11.6-14.4 hmgp=391) PLATELET COUNT (BEAKER) (test xlzt=697) 119 K/CU MM 150-450 MEAN PLATELET VOLUME (BEAKER) (test gdrh=731) 11.0 fL 9.4-12.4 NUCLEATED RED BLOOD CELLS (BEAKER) (test 0 /100 WBC 0-0 htzz=376) RAD, CHEST, 1 VIEW, NON [id number] 13:33:00Reason for exam:-> IntubatedShould this be performed at the bedside?->YesFINAL REPORT RAD, CHEST, 1 VIEW, NON DEPT INDICATION: Intubated COMPARISON: Seven hours prior FINDINGS: Portable frontal view of the chest. IMPRESSION: Support Lines: Intervalendotracheal intubation terminating 8 cm above the kamilah. Enteric tube is stable. Lungs and pleura:Unchanged appearance of the air spaces. No pneumothorax.Heart and mediastinum: Stable contours. Stable surgical changes.Additional findings: None. Signed: JR Felton Robert MDReport Verified Date/Time: 07/30/2018 13:33:24 Reading Location: [address] Neuro Reading Room POCT-GLUCOSE [id number] 12:53:00 Test Item Value Reference Range Comments POC-GLUCOSE METER (BEAKER) 119 mg/dL 70-110 TESTED AT [facility] [address] [facility] (test sbkh=4920) [facility] [address] CALCIUM, [id number] 10:43:00 Test Item Value Reference Range Comments CALCIUM IONIZED (BEAKER) (test kpkl=303) 0.87 mmol/L 1.12-1.27 PH, BLOOD (BEAKER) (test gbdh=9514) 7.32 BLOOD GAS, [id number] 10:42:00 Test Item Value Reference Range Comments PH ARTERIAL (BEAKER) (test ipdg=991) 7.32 7.35-7.45 PCO2 ARTERIAL (BEAKER) (test yejs=644) 41 mmHg 35-45 PO2 ARTERIAL (BEAKER) (test bkdg=692) 352 mmHg 80-90 O2 SATURATION ARTERIAL (BEAKER) (test hbzg=123) 99.7 % 96.0-97.0 HCO3 ARTERIAL (BEAKER) (test bucv=465) 21 mmol/L 21-29 BASE EXCESS ARTERIAL (BEAKER) (test bopc=268) -4.9 mmol/L -2.0-3.0 PATIENT TEMPERATURE (BEAKER) (test zqlu=0147) 37.0 C FIO2 (BEAKER) (test cwda=7813) 100.0 % SODIUM NA-STAT [id number] 10:42:00 Test Item Value Reference Range Comments SODIUM (BEAKER) (test mikj=240) 127 meq/L 135-148 POTASSIUM-STAT [id number] 10:42:00 Test Item Value Reference Range Comments POTASSIUM (BEAKER) (test xryt=609) 3.3 meq/L 3.6-5.5 HGB/HCT (H&H) - STAT [id number] 10:42:00 Test Item Value Reference Range Comments HEMOGLOBIN (BEAKER) (test fsjb=372) 14.6 g/dL 13.0-16.8 HEMATOCRIT (BEAKER) (test xgdn=780) 43.0 % 40.0-50.0 GLUCOSE-STAT [id number] 10:40:00 Test Item Value Reference Range Comments GLUCOSE RANDOM (BEAKER) (test xkpf=157) 93 mg/dL 70-110 OSMOLALITY, [id number] 08:45:00 Test Item Value Reference Range Comments OSMOLALITY URINE (BEAKER) (test dggj=854) 368 mOsm/kg 40-1,400 CBC W/PLT COUNT & AUTO [id number] 07:28:00 Test Item Value Reference Range Comments WHITE BLOOD CELL COUNT (BEAKER) (test eurc=646) 22.1 K/ L 3.5-10.5 RED BLOOD CELL COUNT (BEAKER) (test trak=103) 5.55 M/ L 4.63-6.08 HEMOGLOBIN (BEAKER) (test ombk=498) 17.8 GM/DL 13.7-17.5 HEMATOCRIT (BEAKER) (test dlzb=132) 50.7 % 40.1-51.0 MEAN CORPUSCULAR VOLUME (BEAKER) (test havl=439) 91.4 fL 79.0-92.2 MEAN CORPUSCULAR HEMOGLOBIN (BEAKER) (test 32.1 pg 25.7-32.2 twuu=943) MEAN CORPUSCULAR HEMOGLOBIN CONC (BEAKER) (test 35.1 GM/DL 32.3-36.5 mfqd=162) RED CELL DISTRIBUTION WIDTH (BEAKER) (test 14.7 % 11.6-14.4 btpe=250) PLATELET COUNT (BEAKER) (test pckr=641) 143 K/CU MM 150-450 MEAN PLATELET VOLUME (BEAKER) (test sapl=751) 10.5 fL 9.4-12.4 NUCLEATED RED BLOOD CELLS (BEAKER) (test 0 /100 WBC 0-0 vdtr=347) (CELLAVISION MANUAL DIFF)2018-07-30 07:28:00 Test Item Value Reference Range Comments NEUTROPHILS - REL (CELLAVISION)(BEAKER) (test 79 % mfwx=1156) MONOCYTES - REL (CELLAVISION)(BEAKER) (test 3 % avfw=1828) BANDS - REL (CELLAVISION)(BEAKER) (test 18 % 0-10 qrky=0826) NEUTROPHILS - ABS (CELLAVISION)(BEAKER) (test 17.46 K/ul 1.78-5.38 kcch=5032) MONOCYTES - ABS (CELLAVISION)(BEAKER) (test 0.66 K/uL 0.30-0.82 qiig=8606) BANDS - ABS (CELLAVISION)(BEAKER) (test 3.98 K/uL 0.00-0.80 fzte=3154) TOTAL COUNTED (BEAKER) (test fddu=2378) 100 MANUAL NRBC PER 100 CELLS (BEAKER) (test 1 /100 WBC 0-0 bbus=3438) WBC MORPHOLOGY (BEAKER) (test dwaq=082) Normal GIANT PLATELETS (BEAKER) (test cnia=877) Present POLYCHROMATOPHILLIC RBCS(BEAKER) (test eglc=343) 3+ many ANISOCYTOSIS (BEAKER) (test qioh=370) 2+ moderate MICROCYTES (BEAKER) (test eynr=124) 1+ few MACROCYTES (BEAKER) (test wgdf=183) 2+ moderate POIKILOCYTES (BEAKER) (test mhaw=359) 3+ many OVALOCYTES (BEAKER) (test qxrn=721) 1+ few ACANTHOCYTES (BEAKER) (test rsgh=157) 1+ few ABBI CELLS (BEAKER) (test ymvv=391) 2+ moderate ARTIFACT (CELLAVISION)(BEAKER) (test ccck=9856) Present PLATELET CONCENTRATION (CELLAVISION)(BEAKER) Adequate (test xwny=0293) Received comment: User comments: Slide comments:SODIUM, RANDOM [id number] 07:26:00 Test Item Value Reference Range Comments SODIUM URINE (BEAKER) (test ddrn=097) < meq/L Reference Range: No NormalsCREATININE, RANDOM [id number] 07:16:00 Test Item Value Reference Range Comments CREATININE URINE (BEAKER) (test weso=254) 131.7 mg/dL Reference Range: No NormalsTROPONIN [id number] 07:09:00 Test Item Value Reference Range Comments TROPONIN I (BEAKER) (test pmta=411) 0.03 ng/mL 0.00-0.03 Troponin I (TnI) levels must be interpreted in the context of the presenting symptoms and the clinical findings. Elevated TnI levels indicate myocardial damage, but are not specific for ischemic heart disease. Elevated TnI levels are seen in patients with other cardiac conditions (including myocarditis and congestive heart failure), and slight TnI elevations occur in patients with other conditions, including sepsis, renal failure, acidosis, acute neurological disease, and persistent tachyarrhythmia.RAD, CHEST, 1 VIEW, NON [id number] 07:05:00Reason for exam:->right lung consolidationShould this be performed at the bedside?->YesFINAL REPORT RAD, CHEST, 1 VIEW, NON DEPT INDICATION: right lung consolidation COMPARISON: None FINDINGS: Portable frontal view of the chest. IMPRESSION: Support Lines: Enteric tube side-port is visible. Lungs and pleura: Basilar subsegmental atelectasis noted bilaterally. Focal consolidation. No pneumothorax.Heart and mediastinum: Unremarkable contours given the degree of under inspiration.Additional findings : None. Signed: JR Felton Robert MDReport Verified Date/Time: 2018 07:05:02 Reading Location: [address] Neuro Reading Room [id number] 06:53:00 Test Item Value Reference Range Comments PROCALCITONIN (BEAKER) (test pbpp=9859) 9.52 ng/mL <0.05 SEPSIS RISK (ng/mL)Low: 0.05-0.50Intermediate: 0.51-2.00High: & gt;=2.01LACTIC ACID, VENOUS, WHOLE [id number] 06:41:00 Test Item Value Reference Range Comments LACTATE BLOOD VENOUS (2) 6.6 mmol/L 0.5-2.2 Specimen moderately hemolyzed (BEAKER) (test iure=7247) BLOOD GAS, [id number] 06:39:00 Test Item Value Reference Range Comments PH VENOUS (BEAKER) (test mlok=788) 7.37 7.32-7.42 PCO2 VENOUS (BEAKER) (test iqvy=954) 33 mmHg 41-51 PO2 VENOUS (BEAKER) (test jwmt=022) 62 mmHg 25-40 O2 SATURATION VENOUS (BEAKER) (test gwlm=167) 92.6 % 40.0-70.0 HCO3 VENOUS (BEAKER) (test afiz=838) 19 mmol/L 21-29 BASE EXCESS VENOUS (BEAKER) (test fcfq=130) -5.5 mmol/L -2.0-3.0 PATIENT TEMPERATURE (BEAKER) (test xadh=6368) 36.0 C FIO2 (BEAKER) (test ufdx=8278) 100.0 % POCT-GLUCOSE [id number] 06:32:00 Test Item Value Reference Range Comments POC-GLUCOSE METER (BEAKER) 123 mg/dL 70-110 TESTED AT [address] (test olzy=3107) [facility] [address] RAD, ABDOMEN/KUB, 1 VIEW [id number] 06:03:00Reason for exam:->abdominal distension/ NGT placementShould this be performed at the bedside?->YesFINAL REPORT CLINICAL HISTORY: abdominal distension/ NGT placement TECHNIQUE:RAD, ABDOMEN/KUB, 1 VIEW AP COMPARISON: None IMPRESSION: Nasogastric tube is seen overlying the gastric body. Multiple air-filled distended loops of bowel in the central abdomen measuring up to 6.0 cm which may be related to obstruction versus ileus. Recommend further evaluation with dedicated CT of the pelvis. Visualized osseous structures are unremarkable. Signed: Zafar Austin MDReport Verified Date/Time: 07/30/2018 06:03:17 Reading Location: [facility] C013T Transitional Reading Room [id number] 05:33:00 Test Item Value Reference Range Comments PROTIME (BEAKER) (test yabv=187) 17.3 seconds 11.7-14.7 INR (BEAKER) (test tvdb=456) 1.4 <=5.9 PARTIAL THROMBOPLASTIN TIME (BEAKER) (test 31.6 seconds 22.5-36.0 vfes=670) RECOMMENDED COUMADIN/WARFARIN INR THERAPY RANGESSTANDARD DOSE: 2.0 - 3.0 Includes: PROPHYLAXIS forvenous thrombosis, systemic embolization; TREATMENT for venous thrombosis and/or pulmonary embolus.HIGH RISK: Target INR is 2.5-3.5 for patients with mechanical heart valves.[id number] 05:24:00 Test Item Value Reference Range Comments MAGNESIUM (BEAKER) (test 2.0 mg/dL 1.6-2.6 Specimen slightly hemolyzed kqsm=770) [id number] 05:24:00 Test Item Value Reference Range Comments PHOSPHORUS (BEAKER) (test 6.9 mg/dL 2.3-4.7 Specimen slightly hemolyzed oxhb=828) COMPREHENSIVE METABOLIC [id number] 05:24:00 Test Item Value Reference Range Comments TOTAL PROTEIN (BEAKER) 6.5 gm/dL 6.0-8.3 Specimen slightly (test ewvo=377) hemolyzed ALBUMIN (BEAKER) (test 2.4 g/dL 3.5-5.0 Specimen slightly grqr=2696) hemolyzed ALKALINE PHOSPHATASE 106 U/L 40-150 (BEAKER) (test fuia=112) BILIRUBIN TOTAL (BEAKER) 3.5 mg/dL 0.2-1.2 Specimen slightly (test ggyx=890) hemolyzed SODIUM (BEAKER) (test 127 meq/L 136-145 zowr=409) POTASSIUM (BEAKER) (test 4.2 meq/L 3.5-5.1 Specimen slightly pmed=918) hemolyzed CHLORIDE (BEAKER) (test 90 meq/L 98-107 mfeu=011) CO2 (BEAKER) (test 20 meq/L 22-29 njdo=923) BLOOD UREA NITROGEN 56 mg/dL 7-21 (BEAKER) (test mmfe=289) CREATININE (BEAKER) (test 2.29 mg/dL 0.57-1.25 Specimen slightly kgxa=745) hemolyzed GLUCOSE RANDOM (BEAKER) 121 mg/dL 70-105 (test twxv=719) CALCIUM (BEAKER) (test 8.4 mg/dL 8.4-10.2 sxiy=569) AST (SGOT) (BEAKER) (test 70 U/L 5-34 Specimen slightly eqln=199) hemolyzed ALT (SGPT) (BEAKER) (test 46 U/L 6-55 Specimen slightly blwb=341) hemolyzed EGFR (BEAKER) (test 30 mL/min/1.73 sq m ESTIMATED GFR IS NOT okdj=0291) ACCURATE CREATININE CLEARANCE IN PREDICTING GLOMERULAR FILTRATION RATE. ESTIMATED GFR IS NOT APPLICABLE FOR DIALYSIS PATIENTS. Specimen slightly [id number] 05:24:00 Test Item Value Reference Range Comments AMYLASE (BEAKER) (test jspj=751) 59 U/L 25-125 Specimen slightly hemolyzed Specimen slightly [id number] 05:24:00 Test Item Value Reference Range Comments LIPASE (BEAKER) (test vayu=476) 86 U/L 8-78 Specimen slightly ictericLACTIC ACID, VENOUS, WHOLE [id number] 05:20:00 Test Item Value Reference Range Comments LACTATE BLOOD VENOUS (2) 5.6 mmol/L 0.5-2.2 Specimen markedly hemolyzed (BEAKER) (test fnyl=1186)
--- NOTE | 2018-08-15 14:57 | RAD REPORT ---
EXAM DESCRIPTION: RAD - Chest Single View - 08/15/2018 2:52 pm CLINICAL HISTORY: ABDOMINAL DISTENTION Chest pain. COMPARISON: No comparisons FINDINGS: Portable technique limits examination quality. The lungs are grossly clear. The heart is normal in size. No displaced fractures. IMPRESSION: No acute intrathoracic process suspected.
[2018-08-15 15:16] LABS: Absolute Lymphocytes (CBC) 0.6 K/uL (0.7-4.9); Absolute Monocytes 0.6 K/uL (0.1-1.3); Absolute Neutrophil 2.9 K/uL (1.8-8.0); Basophils % 0.4 % (0-1.3); Eosinophils % 2.2 % (0-4.4); Hematocrit 36.2 % (39.6-49.0); MPV 9.3 fL (7.6-11.3); Monocytes % 13.7 % (3.3-12.3); RBC Red Blood Cell Count 3.64 M/uL (4.33-5.43)
[2018-08-15 15:27] LABS: Protime INR 1.2
--- NOTE | 2018-08-15 15:29 | ER ---
Nurse's Notes [facility] Name: Onel Mancuso Age: 58 yrs Sex: Male : 1960 Arrival Date: 08/15/2018 Time: 13:45 Bed External Waiting Private MD: Diagnosis: Presentation: 08/15 13:45 Presenting complaint: EMS states: ABDOMINAL WOUND INFECTION. Transition of care: bp patient was not received from another setting of care. Onset of symptoms is unknown. Risk Assessment: Do you want to hurt yourself or someone else? Patient reports no desire to harm self or others. Initial Sepsis Screen: Does the patient meet any 2 criteria? No. Patient's initial sepsis screen is negative. Does the patient have a suspected source of infection? Yes: Skin breakdown/wound. Care prior to arrival: Glucose check: 156. 13:45 Method Of Arrival: EMS: [facility] bp 13:45 Acuity: DANIKA 3 bp Triage Assessment: 13:50 General: Appears distressed, comfortable, obese, unkempt, Behavior is cooperative, bp appropriate for age, drowsy. Pain: Complains of pain in abdomen. EENT: No deficits noted. Neuro: Level of Consciousness is alert, obeys commands, lethargic, Oriented to person, place, time, situation, Appropriate for age. Cardiovascular: Rhythm is sinus rhythm. Respiratory: Airway is patent Respiratory effort is even, labored, Respiratory pattern is regular, tachypnea. GI: Abdomen is distended, noted to have ascites, Abd is rigid X 4 quads. : No signs and/or symptoms were reported regarding the genitourinary system. Derm: No deficits noted. Musculoskeletal: Circulation, motion, and sensation intact. Range of motion: intact in all extremities. Historical: - Allergies: 13:50 No Known Allergies; bp - Home Meds: 13:50 amlodipine oral [Active]; Folic Acid Oral [Active]; Coreg Oral [Active]; bp - PMHx: 13:50 Cirrhosis; Hepatitis; Hypertension; bp - Immunization history:: Adult Immunizations up to date. - Social history:: Smoking status: Patient uses tobacco products, unknown amount. - Ebola Screening: : Patient negative for fever greater than or equal to 101.5 degrees Fahrenheit, and additional compatible Ebola Virus Disease symptoms Patient denies exposure to infectious person Patient denies travel to an Ebola-affected area in the 21 days before illness onset No symptoms or risks identified at this time. Screenin:01 Abuse screen: Denies threats or abuse. Denies injuries from another. Nutritional bp screening: No deficits noted. Tuberculosis screening: No symptoms or risk factors identified. Fall Risk None identified. Assessment: 14:24 General: SEE TRIAGE NOTE. bp 19:36 Reassessment: Patient appears in no apparent distress at this time. Patient and/or ed1 family updated on plan of care and expected duration. Pain level reassessed. Patient is alert, oriented x 3, equal unlabored respirations, skin warm/dry/pink. Wound dressing intact. Pt states "I don't want to be admitted. I have an appointment at [facility] tomorrow at 2:30pm and I need to make that appointment. If yall could just give me stuff to keep this thing dressed and something for the pain I will be fine." Dr. Alarcon notified. Janie, Charge Nurse, notified. 20:30 Reassessment: Patient appears in no apparent distress at this time. Patient and/or ed1 family updated on plan of care and expected duration. Pain level reassessed. Patient is alert, oriented x 3, equal unlabored respirations, skin warm/dry/pink. Admission orders are not in [facility]. Janie, Charge Nurse, notified. 22:42 Reassessment: Pt called friend to come pick him up from the hospital. Pt does not want ed1 to be admitted. Dr. Alarcon notified. Pt signed AMA form. Vital Signs: 13:50 BP 136 / 85; Pulse 81; Resp 16; Temp 98.1; Pulse Ox 97% ; Weight 127.01 kg; bp 15:00 BP 147 / 88; Pulse 84; Resp 18; Pulse Ox 100% ; bp 16:00 BP 150 / 95; Pulse 81; Resp 24; Pulse Ox 100% ; bp 17:00 BP 138 / 85; Pulse 81; Resp 20; Pulse Ox 99% ; bp 18:00 BP 165 / 96; Pulse 86; Resp 20; Pulse Ox 99% ; bp 19:36 BP 166 / 93; Pulse 91; Resp 18; Pulse Ox 99% on R/A; Pain 6/10; ed1 22:42 BP 156 / 79; Pulse 88; Resp 19; Temp 98.9(O); Pulse Ox 97% on R/A; Pain 6/10; ed1 ED Course: 13:45 Patient arrived in ED. bp 13:46 Triage completed. bp 14:01 Arm band placed on. bp 14:01 Patient has correct armband on for positive identification. Placed in gown. Bed in low bp position. Call light in reach. Side rails up X2. Pulse ox on. NIBP on. 14:09 Chuy Alarcon MD is Attending Physician. allyn 14:19 Ryland Millan, RN is Primary Nurse. bp 14:23 Inserted saline lock: 20 gauge in right upper arm, using aseptic technique. Blood bp collected. 14:53 Chest Single View XRAY In Process Unspecified. EDMS 15:01 Inserted saline lock: 22 gauge in left antecubital area, using aseptic technique. Blood ag collected. 15:08 Myrna Zurita MD is Hospitalizing Provider. allyn 16:00 Inserted saline lock: 18 gauge in right EJ, using aseptic technique. bp 17:45 CT completed. Patient tolerated procedure well. Patient moved to CT via stretcher. jg6 Patient moved back from CT. 17:47 CT Abd/Pelvis - W/Contrast In Process Unspecified. EDMS 18:44 Dressings: ABD pad X 3; abdomen Kerlix X 2; abdomen 4X4s X 2; abdomen. bp 19:39 Primary Nurse role handed off by Ryland Millan, DAVID ed1 19:39 Aisha Rodriguez, DAVID is Primary Nurse. ed1 22:02 Mateo Burt MD is Hospitalizing Provider. allyn 22:42 IV discontinued, intact, bleeding controlled, No redness/swelling at site. Pressure ed1 dressing applied. 22:42 No provider procedures requiring assistance completed. rr5 Administered Medications: 15:00 Drug: NS 0.9% (30 ml/kg) 30 ml/kg Route: IV; Rate: bolus; Site: right jugular; bp 15:15 Drug: Pepcid 20 mg Route: IVP; Site: right jugular; bp 17:05 Follow up: Response: No adverse reaction bp 15:15 Drug: Dilaudid 1 mg Route: IVP; Site: right jugular; bp 17:05 Follow up: Response: Pain is decreased bp 15:15 Drug: Zofran 4 mg Route: IVP; Site: right jugular; bp 17:04 Follow up: Response: Nausea is decreased bp 15:15 Drug: Thiamine 100 mg Route: IV; Rate: bolus; Site: right jugular; bp 15:53 Follow up: IV Status: Completed infusion; IV Intake: 100ml bp 16:10 Drug: Rocephin - (cefTRIAXone) 1 grams Route: IVPB; Infused Over: 30 mins; Site: right bp jugular; 18:43 Follow up: IV Status: Completed infusion bp 18:00 Drug: Dilaudid 1 mg Route: IVP; Site: right jugular; bp 18:16 Follow up: Response: Pain is decreased bp 20:14 Drug: Zosyn 3.375 grams Route: IVPB; Infused Over: 60 mins; Site: right upper arm; ed1 21:13 Follow up: Response: No adverse reaction; IV Status: Completed infusion; IV Intake: ed1 100ml Intake: 15:53 IV: 100ml; Total: 100ml. bp 21:13 IV: 100ml; Total: 200ml. ed1 Outcome: 15:28 Decision to Hospitalize by Provider. allyn 22:42 AMA AMA form signed ed1 22:42 Condition: stable 22:42 Discharge instructions given to patient, Instructed on the need for admit, Demonstrated understanding of Pt wants to leave AMA. 0312 05:22 Patient left the ED. rr5 Signatures: Dispatcher [employer] Chuy Castro MD MD cha Riggs, Erika, RN RN ed1 Neeta Sanchez Brian RN Alise Vasquez Raymond RN RN rr5
--- NOTE | 2018-08-15 15:29 | EDPHYS ---
Physician Documentation [facility] Name: Onel Mancuso Age: 58 yrs Sex: Male : 1960 Arrival Date: 08/15/2018 Time: 13:45 Bed External Waiting Private MD: ED Physician Chuy Alarcon HPI: 08/15 15:01 This 58 yrs old Male presents to ER via EMS with complaints of Wound allyn Infection. Historical: - Allergies: 13:50 No Known Allergies; bp - Home Meds: 13:50 amlodipine oral [Active]; Folic Acid Oral [Active]; Coreg Oral [Active]; bp - PMHx: 13:50 Cirrhosis; Hepatitis; Hypertension; bp - Immunization history:: Adult Immunizations up to date. - Social history:: Smoking status: Patient uses tobacco products, unknown amount. - Ebola Screening: : Patient negative for fever greater than or equal to 101.5 degrees Fahrenheit, and additional compatible Ebola Virus Disease symptoms Patient denies exposure to infectious person Patient denies travel to an Ebola-affected area in the 21 days before illness onset No symptoms or risks identified at this time. ROS: 15:05 Constitutional: Negative for fever, chills, and weight loss, Eyes: Negative for injury, allyn pain, redness, and discharge, ENT: Negative for injury, pain, and discharge, Neck: Negative for injury, pain, and swelling, Cardiovascular: Negative for chest pain, palpitations, and edema, Respiratory: Negative for shortness of breath, cough, wheezing, and pleuritic chest pain, Back: Negative for injury and pain, : Negative for injury, bleeding, discharge, and swelling, MS/Extremity: Negative for injury and deformity, Skin: Negative for injury, rash, and discoloration, Neuro: Negative for headache, weakness, numbness, tingling, and seizure, Psych: Negative for depression, anxiety, suicide ideation, homicidal ideation, and hallucinations, Allergy/Immunology: Negative for hives, rash, and allergies, Endocrine: Negative for neck swelling, polydipsia, polyuria, polyphagia, and marked weight changes, Hematologic/Lymphatic: Negative for swollen nodes, abnormal bleeding, and unusual bruising. 15:05 Abdomen/GI: Positive for abdominal pain, nausea, of the right lower quadrant and left lower quadrant. Exam: 15:05 Constitutional: This is a well developed, well nourished patient who is awake, alert, allyn and in no acute distress. Head/Face: Normocephalic, atraumatic. Eyes: Pupils equal round and reactive to light, extra-ocular motions intact. Lids and lashes normal. Conjunctiva and sclera are non-icteric and not injected. Cornea within normal limits. Periorbital areas with no swelling, redness, or edema. ENT: Nares patent. No nasal discharge, no septal abnormalities noted. Tympanic membranes are normal and external auditory canals are clear. Oropharynx with no redness, swelling, or masses, exudates, or evidence of obstruction, uvula midline. Mucous membranes moist. Neck: Trachea midline, no thyromegaly or masses palpated, and no cervical lymphadenopathy. Supple, full range of motion without nuchal rigidity, or vertebral point tenderness. No Meningismus. Chest/axilla: Normal chest wall appearance and motion. Nontender with no deformity. No lesions are appreciated. Cardiovascular: Regular rate and rhythm with a normal S1 and S2. No gallops, murmurs, or rubs. Normal PMI, no JVD. No pulse deficits. Respiratory: Lungs have equal breath sounds bilaterally, clear to auscultation and percussion. No rales, rhonchi or wheezes noted. No increased work of breathing, no retractions or nasal flaring. Back: No spinal tenderness. No costovertebral tenderness. Full range of motion. Male : Normal genitalia with no discharge or lesions. Neuro: Awake and alert, GCS 15, oriented to person, place, time, and situation. Cranial nerves II-XII grossly intact. Motor strength 5/5 in all extremities. Sensory grossly intact. Cerebellar exam normal. Normal gait. Psych: Awake, alert, with orientation to person, place and time. Behavior, mood, and affect are within normal limits. 15:05 Abdomen/GI: Inspection: distension, Bowel sounds: normal, Palpation: mild abdominal tenderness, in the right lower quadrant and left lower quadrant, Liver: no appreciated palpable abnormalities, Hernia: not appreciated, open midline incision, drainang. Vital Signs: 13:50 BP 136 / 85; Pulse 81; Resp 16; Temp 98.1; Pulse Ox 97% ; Weight 127.01 kg; bp 15:00 BP 147 / 88; Pulse 84; Resp 18; Pulse Ox 100% ; bp 16:00 BP 150 / 95; Pulse 81; Resp 24; Pulse Ox 100% ; bp 17:00 BP 138 / 85; Pulse 81; Resp 20; Pulse Ox 99% ; bp 18:00 BP 165 / 96; Pulse 86; Resp 20; Pulse Ox 99% ; bp 19:36 BP 166 / 93; Pulse 91; Resp 18; Pulse Ox 99% on R/A; Pain 6/10; ed1 22:42 BP 156 / 79; Pulse 88; Resp 19; Temp 98.9(O); Pulse Ox 97% on R/A; Pain 6/10; ed1 MDM: 14:09 Patient medically screened. [facility] 15:28 Data reviewed: vital signs, nurses notes, lab test result(s), EKG, radiologic studies, allyn plain films. 08/15 14:21 Order name: Basic Metabolic Panel; Complete Time: 17:45 bp 08/15 14:21 Order name: Blood Culture Adult (2) bp 08/15 14:21 Order name: CBC with Diff; Complete Time: 15:46 bp 08/15 14:21 Order name: Ckmb; Complete Time: 17:45 bp 08/15 14:21 Order name: CPK; Complete Time: 17:45 bp 08/15 14:21 Order name: Lactate; Complete Time: 15:46 bp 08/15 14:21 Order name: LFT's; Complete Time: 17:45 bp 08/15 14:21 Order name: Lipase; Complete Time: 17:45 bp 08/15 14:21 Order name: Procalcitonin; Complete Time: 16:48 bp 08/15 14:21 Order name: Protime (+inr); Complete Time: 15:46 bp 08/15 14:21 Order name: Ptt, Activated; Complete Time: 15:46 bp 08/15 14:21 Order name: Troponin (emerg Dept Use Only); Complete Time: 17:45 bp 08/15 14:21 Order name: AMMONIA; Complete Time: 15:07 bp 08/15 14:21 Order name: Chest Single View XRAY; Complete Time: 15:07 bp 08/15 14:21 Order name: Accucheck; Complete Time: 15:07 bp 08/15 14:21 Order name: Cardiac monitoring; Complete Time: 14:22 bp 08/15 15:07 Order name: Type And Screen; Complete Time: 17:02 [facility] 08/15 15:50 Order name: CT Abd/Pelvis - W/Contrast; Complete Time: 19:07 [facility] 08/15 22:04 Order name: Urine Dipstick--Ancillary (enter results) ms 08/15 22:18 Order name: CONS Pharmacy Consult [facility] 08/15 22:18 Order name: NPO [facility] 08/15 14:21 Order name: EKG - Nurse/Tech; Complete Time: 14:22 08/15 14:21 Order name: IV Saline Lock - Large Bore; Complete Time: 14:23 08/15 14:21 Order name: Labs collected and sent; Complete Time: 15:07 bp 08/15 14:21 Order name: O2 Per Protocol; Complete Time: 14:22 bp 08/15 14:21 Order name: O2 Sat Monitoring; Complete Time: 14:22 08/15 14:21 Order name: Urine Dipstick-Ancillary (obtain specimen); Complete Time: 21:41 08/15 15:01 Order name: Wound dressing; Complete Time: 19:07 [facility] Administered Medications: 15:00 Drug: NS 0.9% (30 ml/kg) 30 ml/kg Route: IV; Rate: bolus; Site: right jugular; bp 15:15 Drug: Pepcid 20 mg Route: IVP; Site: right jugular; bp 17:05 Follow up: Response: No adverse reaction bp 15:15 Drug: Dilaudid 1 mg Route: IVP; Site: right jugular; bp 17:05 Follow up: Response: Pain is decreased bp 15:15 Drug: Zofran 4 mg Route: IVP; Site: right jugular; bp 17:04 Follow up: Response: Nausea is decreased bp 15:15 Drug: Thiamine 100 mg Route: IV; Rate: bolus; Site: right jugular; bp 15:53 Follow up: IV Status: Completed infusion; IV Intake: 100ml bp 16:10 Drug: Rocephin - (cefTRIAXone) 1 grams Route: IVPB; Infused Over: 30 mins; Site: right bp jugular; 18:43 Follow up: IV Status: Completed infusion bp 18:00 Drug: Dilaudid 1 mg Route: IVP; Site: right jugular; bp 18:16 Follow up: Response: Pain is decreased bp 20:14 Drug: Zosyn 3.375 grams Route: IVPB; Infused Over: 60 mins; Site: right upper arm; ed1 21:13 Follow up: Response: No adverse reaction; IV Status: Completed infusion; IV Intake: ed1 100ml Disposition: 08/16/18 05:22 Patient has left against medical advice. - Patients states they are going to Home. - Condition is Stable. Signatures: Dispatcher [employer] EDDC Chuy Alarcon MD MD cha Riggs, Erika RN RN ed1 Ryland Millan RN RN César Knapp RN RN [id number] Corrections: (The following items were deleted from the chart) 22: 15:28 Hospitalization Ordered by Myrna Zurita MD for Inpatient Admission. Preliminary allyn diagnosis is Abdominal tenderness; Ascites; Unspecified cirrhosis of liver. Bed requested for Telemetry/MedSurg (Inpatient). Status is Inpatient Admission. Condition is Fair. Problem is new. Symptoms have improved. UTI on Admission? No. allyn 08/16 05:22 08/15 22:02 08/15/2018 15:28 Hospitalization Ordered by Mateo Burt MD for Inpatient [id number] Admission. Preliminary diagnosis is Abdominal tenderness - midline open incision; Ascites; Unspecified cirrhosis of liver. Bed requested for Telemetry/MedSurg (Inpatient). Status is Inpatient Admission. Condition is Fair. Problem is new. Symptoms have improved. UTI on Admission? No. allyn
[2018-08-15] MEDS ORDERED: ONDANSETRON 4 MG/2 ML VIAL ONE (15:41)
[2018-08-15] MEDS ORDERED: NA CHLORIDE 0.9% 1,000 ML ONE ×2 (15:41→18:07)
[2018-08-15] MEDS ORDERED: NA CHLORIDE 0.9% 100 ML IV ONE (15:41)
[2018-08-15] MEDS ORDERED: THIAMINE 200 MG/2 ML INJ ONE (15:41)
[2018-08-15] MEDS ORDERED: HYDROMORPHONE HCL 1 MG/ML INJ ONE ×2 (15:41→18:07)
[2018-08-15] MEDS ORDERED: FAMOTIDINE 20 MG/2 ML VIAL IV ONE (15:41)
[2018-08-15 17:24] LABS: ALT/SGPT 31 U/L (12-78); AST/SGOT 58 U/L (15-37); Albumin 1.6 g/dL (3.4-5.0); Alkaline Phosphatase 211 U/L (45-117); BUN Blood Urea Nitrogen 14 mg/dL (7-18); Bicarbonate 26 mmol/L (21-32); Bilirubin Direct 0.6 mg/dL (0-0.2); CKMB Creatine Kinase MB < 1.0 ng/mL (0.3-3.6); Creatine Phosphokinase 22 U/L (39-308); Glucose Level 87 mg/dL (74-106); Lipase 934 U/L (73-393); Protein, Total 6.8 g/dL (6.4-8.2); Sodium Level 143 mmol/L (136-145); Troponin (Emerg Dept Use Only) < 0.02 ng/mL (0.0-0.045)
--- NOTE | 2018-08-15 17:46 | P.CNS ---
Date of Consult: 08/15/18 Reason for Consult: Abdominal pain, wound Chief Complaint: abd pain, wound History of Present Illness: Pt is a 58 yo M w Hep C with recent hospitalization at [facility] who had surgery w small bowel resection liver biopsy and paracentesis. Pt has cirrhosis and likely metastatic cancer from his liver. Patient comes in with abdominal wound, drainage and pain. Wound appears infected. Records from [facility] reviewed. After discussion with ER physician I recommend patient to be transferred to [facility] where his recent complicated abdominal surgery took place. Pt has open wound healing by secondary intention. He also may have complications from surgery and will likely need I&D and revision. Dr. lAarcon agrees with transfer. Home medications list reviewed: Yes - Past Medical/Surgical History -: Hep C -: Liver cirrhosis -: small bowel resection -: liver biopsy -: paracentesis - Social History Smoking Status: Current some day smoker Review of Systems 10-point ROS is otherwise unremarkable Physical Examination General: Alert, Oriented x3, Mild distress HEENT: Atraumatic, PERRLA, Mucous membr. moist/pink, EOMI, Sclerae nonicteric Neck: Supple, 2+ carotid pulse no bruit, Without JVD or thyroid abnormality Respiratory: Clear to auscultation bilaterally, Normal air movement Cardiovascular: Regular rate/rhythm, Normal S1 S2, Edema Gastrointestinal: Normal bowel sounds, Other (open large abdominal wound w drainage, foul odor ), Distended, Ascites Musculoskeletal: No tenderness Integumentary: No rashes Neurological: Normal gait, Normal speech, Normal tone, Normal affect Laboratory Data (last 24 hrs) 08/15/18 15:00: PT 14.1 H, INR 1.20, APTT 30.3 08/15/18 14:30: WBC 4.2 L, Hgb 11.7 L, Hct 36.2 L, Plt Count 179 08/15/18 14:21: Sodium 143, Potassium 4.0, BUN 14, Creatinine 0.92, Glucose 87, Total Bilirubin 1.0, AST 58 H, ALT 31, Alkaline Phosphatase 211 H, Lipase 934 H Conclusions/Impression: Abdominal wound infection Hep C liver cirrhosis Transfer to [facility] for surgery continuity of care
--- NOTE | 2018-08-15 18:02 | RAD REPORT ---
EXAM DESCRIPTION: CT - Abdomen Pelvis W Contrast - 08/15/2018 5:46 pm CLINICAL HISTORY: Abdominal pain, abdominal wound infection, cirrhosis, hepatitis COMPARISON: CT imaging July 29 TECHNIQUE: Biphasic, helical CT imaging of the abdomen and pelvis was performed following 100 ml non -ionic IV contrast. Oral contrast was given. All CT scans are performed using dose optimization technique as appropriate and may include automated exposure control or mA/KV adjustment according to patient size. FINDINGS: A small to moderate right pleural effusion has developed since prior imaging. In the later al right lung base there is a 3.5 centimeter focal consolidation or mass. This is believed to be cons olidation of pneumonia that was seen in the July study. Malignant mass is not suspected. No left- sided pleural effusion. No pericardial thickening or effusion. Heart size is normal. Advanced cirrhotic liver changes are present. Ill-defined 5 centimeter mass inferior right lobe has n ot changed but remains suspicious for hepatocellular carcinoma given the advanced cirrhosis. Spleen i s upper normal. No acute splenic finding. No acute pancreatic process. Gallbladder wall thickening an d edema are present. This may be acute cholecystitis or could be reactive change given the liver dise ase and intraperitoneal findings. No biliary tree dilatation. Symmetric renal function is seen with no hydronephrosis or suspicious renal mass. No pyelonephritis o r acute parenchymal process. No bladder abnormalities. No adrenal abnormality. Fat filled inguinal he rnias are present. No acute colon process suspected. No appendicitis. No acute gastric finding. A few prominent small bowel loops are present. No free air or pneumatosis. Postsurgical changes are presen t within the peritoneal cavity. There is congestion and edema within the peritoneal fat along with a small amount of ascites. Patient has a dehiscent or open wound along the midline abdomen. Bandaging is in place. No abscess or drainable fluid collections seen in the subcutaneous fatty tissues, abdominal wall or peritoneal cav ity. No mass or bulky lymphadenopathy. No suspicious bony findings. IMPRESSION: Patient has a large open wounds extending along the midline abdomen. Bandaging is in parveen ce. No abscess or drainable fluid collections seen in the peritoneal space, abdominal wall or subcutaneou s fatty tissues near the wound. Patient has a small ascites with congestion and edema throughout the peritoneal fat. A few prominent small bowel loops are present but no free air or pneumatosis. Inferior right lobe mass lesion has not clearly changed over the short interval from prior imaging. T his remains suspicious for hepatocellular carcinoma. Small to moderate partially imaged right pleural effusion new from comparison. There is focal masslik e consolidation lateral right lung base believed to be consolidation of the more diffuse pneumonia fi nelsy seen July 29.
[2018-08-15] MEDS ORDERED: CEFTRIAXONE/SWI 1gm 1 GM/10 ML SYR ONE (18:07)
[2018-08-15] MEDS ORDERED: PIPER/TAZO/NS 3.375gm 3.375 GM/100 ML BAG ONE (19:58)
[2018-08-15 22:08] LABS: Urine Blood NEGATIVE (NEG); Urine Glucose NEGATIVE (NEG); Urine Protein 1+ (NEG); Urine Specific Gravity 1.015 (1.005-1.030)
[2018-08-15] MEDS ORDERED: Levofloxacin500mg IV 500 MG/100 ML BAG IV SCH (23:00)
[2018-08-15] MEDS ORDERED: NA CHLORIDE 0.9% 1,000 ML IV SCH (23:00)
== END 2018-08-16 05:22 | disposition left against medical advice (07) ==
LOC: SUATTDRO 13:43 → ER 13:43 → UNDOADMOB 22:42 → ERHOLD 22:42 → ER 08-16 05:22
PROVIDERS: ATTEND Family Medicine
DX: T81.49XA Infection following a procedure, other surgical site, initial encounter (principal); I10 Essential (primary) hypertension; K74.60 Unspecified cirrhosis of liver; Z72.0 Tobacco use
CPT/HCPCS: 36415; 71045; 74177; 80048; 80076; 81003; 82140; 82550; 82553; 83605; 83690; 84145; 84484; 85025; 85610; 85730; 86850; 86900; 86901; 87040; 99285; J0696; J1170; J2405; J2543; J3411; J7030; Q9967

== ENCOUNTER 2018-08-16 10:32 | Emergency (ER) | payer OTHER ==
--- OUTSIDE RECORDS SUMMARY | 2018-08-16 10:38 | XMS REPORT | Clinical Summary ---
:1960 Author Organization [facility] Address [address] [place] [address] Care Team Providers Name Role Phone Unavailable [...] 07/30/2018 Orders Only General Internal Medicine after 08/15/2017 Social History Tobacco Use Types Packs/Day Years [...] Taken Blood Pressure 157/83 08/11/2018 3:45 PM [employer] Pulse 67 08/11/2018 3:45 PM [employer] Temperature 36.8 C (98.3 F) 08/11/2018 3:45 PM [employer] Respiratory Rate 20 08/11/2018 3:45 PM [employer] Oxygen Saturation 98% 08/11/2018 3:45 PM [employer] Inhaled Oxygen Concentration 40% 07/31/2018 11:00 AM [employer] Weight 114.5 kg (252 lb 6.8 oz) 08/11/2018 6:00 AM [employer] Height 182.9 cm (6') 07/30/2018 2:15 PM [employer] Body Mass Index 34.24 08/11/2018 6:00 AM [employer] Plan of Treatment Not on file Procedures Procedure Name Priority Date/Time Associated Comments Diagnosis REPORT OF PROCEDURE - 08/15/2018 10:52 ENDOSCOPY SCAN AM CDT RHYTHM STRIP - SCAN 08/15/2018 10:52 AM CDT POCT-GLUCOSE METER Routine 08/11/2018 3:48 Results for this PM [employer] procedure are in the results section. POCT-GLUCOSE METER Routine 08/11/2018 9:13 Results for this AM [employer] procedure are in the results section. CBC W/PLT COUNT & AUTO Routine 08/11/2018 5:04 Results for this DIFFERENTIAL AM [employer] procedure are in the results section. CBC W/PLT COUNT & AUTO Routine 08/11/2018 5:04 Results for this DIFFERENTIAL AM [employer] procedure are in the results section. PT/APTT Routine 08/11/2018 5:04 Results for this AM [employer] procedure are in the results section. BILIRUBIN, DIRECT Routine 08/11/2018 5:04 Results for this AM [employer] procedure are in the results section. COMPREHENSIVE METABOLIC Routine 08/11/2018 5:04 Results for this PANEL AM [employer] procedure are in the results section. MAGNESIUM Routine 08/11/2018 5:04 Results for this AM [employer] procedure are in the results section. CALCIUM, IONIZED Routine 08/11/2018 5:04 Results for this AM [employer] procedure are in the results section. PHOSPHORUS Routine 08/11/2018 5:04 Results for this AM [employer] procedure are in the results section. POCT-GLUCOSE METER Routine 08/10/2018 9:54 Results for this PM [employer] procedure are in the results section. POCT-GLUCOSE METER Routine 08/10/2018 4:22 Results for this PM [employer] procedure are in the results section. US PARACENTESIS Routine 08/10/2018 3:30 Results for this PM [employer] procedure are in the results section. BODY FLUID CELL COUNT Routine 08/10/2018 3:29 Results for this WITH DIFFERENTIAL PM [employer] procedure are in the results section. BODY FLUID CULTURE + Routine 08/10/2018 3:28 Results for this GRAM STAIN PM [employer] procedure are in the results section. POCT-GLUCOSE METER Routine 08/10/2018 9:14 Results for this AM [employer] procedure are in the results section. CBC W/PLT COUNT & AUTO Routine 08/10/2018 5:21 Results for this DIFFERENTIAL AM [employer] procedure are in the results section. CBC W/PLT COUNT & AUTO Routine 08/10/2018 5:21 Results for this DIFFERENTIAL AM [employer] procedure are in the results section. PT/APTT Routine 08/10/2018 5:21 Results for this AM [employer] procedure are in the results section. BILIRUBIN, DIRECT Routine 08/10/2018 5:21 Results for this AM [employer] procedure are in the results section. COMPREHENSIVE METABOLIC Routine 08/10/2018 5:21 Results for this PANEL AM [employer] procedure are in the results section. MAGNESIUM Routine 08/10/2018 5:21 Results for this AM [employer] procedure are in the results section. CALCIUM, IONIZED Routine 08/10/2018 5:21 Results for this AM [employer] procedure are in the results section. PHOSPHORUS Routine 08/10/2018 5:21 Results for this AM [employer] procedure are in the results section. POCT-GLUCOSE METER Routine 08/09/2018 9:57 Results for this PM [employer] procedure are in the results section. POCT-GLUCOSE METER Routine 08/09/2018 6:34 Results for this PM [employer] procedure are in the results section. MAGNESIUM Routine 08/09/2018 5:08 Results for this PM [employer] procedure are in the results section. NM BONE SCAN WHOLE BODY Routine 08/09/2018 3:36 Results for this PM [employer] procedure are in the results section. POCT-GLUCOSE METER Routine 08/09/2018 11:58 Results for this AM [employer] procedure are in the results section. POCT-GLUCOSE METER Routine 08/09/2018 8:04 Results for this AM [employer] procedure are in the results section. CBC W/PLT COUNT & AUTO Routine 08/09/2018 3:19 Results for this DIFFERENTIAL AM [employer] procedure are in the results section. CBC W/PLT COUNT & AUTO Routine 08/09/2018 3:19 Results for this DIFFERENTIAL AM [employer] procedure are in the results section. PT/APTT Routine 08/09/2018 3:19 Results for this AM [employer] procedure are in the results section. BILIRUBIN, DIRECT Routine 08/09/2018 3:19 Results for this AM [employer] procedure are in the results section. COMPREHENSIVE METABOLIC Routine 08/09/2018 3:19 Results for this PANEL AM [employer] procedure are in the results section. MAGNESIUM Routine 08/09/2018 3:19 Results for this AM [employer] procedure are in the results section. CALCIUM, IONIZED Routine 08/09/2018 3:19 Results for this AM [employer] procedure are in the results section. PHOSPHORUS Routine 08/09/2018 3:19 Results for this AM [employer] procedure are in the results section. POCT-GLUCOSE METER Routine 08/08/2018 9:26 Results for this PM [employer] procedure are in the results section. POCT-GLUCOSE METER Routine 08/08/2018 6:48 Results for this PM [employer] procedure are in the results section. CT CHEST WITHOUT IV Routine 08/08/2018 5:45 Results for this CONTRAST PM [employer] procedure are in the results section. MAGNESIUM Routine 08/08/2018 3:15 Results for this PM [employer] procedure are in the results section. POCT-GLUCOSE METER Routine 08/08/2018 11:52 Results for this AM [employer] procedure are in the results section. POCT-GLUCOSE METER Routine 08/08/2018 8:46 Results for this AM [employer] procedure are in the results section. CBC W/PLT COUNT & AUTO Routine 08/08/2018 3:13 Results for this DIFFERENTIAL AM [employer] procedure are in the results section. CBC W/PLT COUNT & AUTO Routine 08/08/2018 3:13 Results for this DIFFERENTIAL AM [employer] procedure are in the results section. PT/APTT Routine 08/08/2018 3:13 Results for this AM [employer] procedure are in the results section. BILIRUBIN, DIRECT Routine 08/08/2018 3:13 Results for this AM [employer] procedure are in the results section. COMPREHENSIVE METABOLIC Routine 08/08/2018 3:13 Results for this PANEL AM [employer] procedure are in the results section. MAGNESIUM Routine 08/08/2018 3:13 Results for this AM [employer] procedure are in the results section. CALCIUM, IONIZED Routine 08/08/2018 3:13 Results for this AM [employer] procedure are in the results section. PHOSPHORUS Routine 08/08/2018 3:13 Results for this AM [employer] procedure are in the results section. MAGNESIUM Routine 08/08/2018 3:13 Results for this AM [employer] procedure are in the results section. MR ABDOMEN WITH/WITHOUT Routine 08/08/2018 12:39 Results for this IV CONTRAST AM [employer] procedure are in the results section. POCT-GLUCOSE METER Routine 08/07/2018 9:58 Results for this PM [employer] procedure are in the results section. POCT-GLUCOSE METER Routine 08/07/2018 4:15 Results for this PM [employer] procedure are in the results section. POCT-GLUCOSE METER Routine 08/07/2018 12:54 Results for this PM [employer] procedure are in the results section. CBC W/PLT COUNT & AUTO Routine 08/07/2018 4:41 Results for this DIFFERENTIAL AM [employer] procedure are in the results section. TRIGLYCERIDES Routine 08/07/2018 4:41 Results for this AM [employer] procedure are in the results section. PREALBUMIN Routine 08/07/2018 4:41 Results for this AM [employer] procedure are in the results section. CBC W/PLT COUNT & AUTO Routine 08/07/2018 4:41 Results for this DIFFERENTIAL AM [employer] procedure are in the results section. PT/APTT Routine 08/07/2018 4:41 Results for this AM [employer] procedure are in the results section. BILIRUBIN, DIRECT Routine 08/07/2018 4:41 Results for this AM [employer] procedure are in the results section. COMPREHENSIVE METABOLIC Routine 08/07/2018 4:41 Results for this PANEL AM [employer] procedure are in the results section. MAGNESIUM Routine 08/07/2018 4:41 Results for this AM [employer] procedure are in the results section. CALCIUM, IONIZED Routine 08/07/2018 4:41 Results for this AM [employer] procedure are in the results section. PHOSPHORUS Routine 08/07/2018 4:41 Results for this AM [employer] procedure are in the results section. C-REACTIVE PROTEIN Routine 08/07/2018 4:41 Results for this AM [employer] procedure are in the results section. MAGNESIUM Routine 08/07/2018 4:41 Results for this AM [employer] procedure are in the results section. POCT-GLUCOSE METER Routine 08/06/2018 9:59 Results for this PM [employer] procedure are in the results section. POCT-GLUCOSE METER Routine 08/06/2018 3:24 Results for this PM [employer] procedure are in the results section. US PARACENTESIS Routine 08/06/2018 2:55 Results for this PM [employer] procedure are in the results section. BODY FLUID CELL COUNT Routine 08/06/2018 2:06 Results for this WITH DIFFERENTIAL PM [employer] procedure are in the results section. BODY FLUID CULTURE + Routine 08/06/2018 2:04 Results for this GRAM STAIN PM [employer] procedure are in the results section. PROTEIN, BODY FLUID Routine 08/06/2018 2:02 Results for this PM [employer] procedure are in the results section. ALBUMIN, BODY FLUID Routine 08/06/2018 2:02 Results for this PM [employer] procedure are in the results section. CYTOLOGY AP Routine 08/06/2018 2:00 Results for this PM [employer] procedure are in the results section. POCT-GLUCOSE METER Routine 08/06/2018 11:32 Results for this AM [employer] procedure are in the results section. POCT-GLUCOSE METER Routine 08/06/2018 7:46 Results for this AM [employer] procedure are in the results section. CALCIUM, IONIZED Routine 08/06/2018 4:36 Results for this AM [employer] procedure are in the results section. PT/APTT Routine 08/06/2018 4:33 Results for this AM [employer] procedure are in the results section. BILIRUBIN, DIRECT Routine 08/06/2018 4:33 Results for this AM [employer] procedure are in the results section. COMPREHENSIVE METABOLIC Routine 08/06/2018 4:33 Results for this PANEL AM [employer] procedure are in the results section. PHOSPHORUS Routine 08/06/2018 4:33 Results for this AM [employer] procedure are in the results section. MAGNESIUM Routine 08/06/2018 4:33 Results for this AM [employer] procedure are in the results section. CBC W/PLT COUNT & AUTO Routine 08/06/2018 4:32 Results for this DIFFERENTIAL AM [employer] procedure are in the results section. B-TYPE NATRIURETIC Routine 08/06/2018 4:32 Results for this FACTOR (BNP) AM [employer] procedure are in the results section. CBC W/PLT COUNT & AUTO Routine 08/06/2018 4:32 Results for this DIFFERENTIAL AM [employer] procedure are in the results section. POCT-GLUCOSE METER Routine 08/05/2018 9:43 Results for this PM [employer] procedure are in the results section. POCT-GLUCOSE METER Routine 08/05/2018 5:40 Results for this PM [employer] procedure are in the results section. POCT-GLUCOSE METER Routine 08/05/2018 11:26 Results for this AM [employer] procedure are in the results section. CALCIUM, IONIZED Routine 08/05/2018 5:59 Results for this AM [employer] procedure are in the results section. CBC W/PLT COUNT & AUTO Routine 08/05/2018 5:57 Results for this DIFFERENTIAL AM [employer] procedure are in the results section. CBC W/PLT COUNT & AUTO Routine 08/05/2018 5:57 Results for this DIFFERENTIAL AM [employer] procedure are in the results section. PT/APTT Routine 08/05/2018 5:57 Results for this AM [employer] procedure are in the results section. BILIRUBIN, DIRECT Routine 08/05/2018 5:57 Results for this AM [employer] procedure are in the results section. COMPREHENSIVE METABOLIC Routine 08/05/2018 5:57 Results for this PANEL AM [employer] procedure are in the results section. PHOSPHORUS Routine 08/05/2018 5:57 Results for this AM [employer] procedure are in the results section. MAGNESIUM Routine 08/05/2018 5:57 Results for this AM [employer] procedure are in the results section. POCT-GLUCOSE METER Routine 08/05/2018 5:05 Results for this AM [employer] procedure are in the results section. POCT-GLUCOSE METER Routine 08/04/2018 11:00 Results for this PM [employer] procedure are in the results section. POCT-GLUCOSE METER Routine 08/04/2018 5:09 Results for this PM [employer] procedure are in the results section. HEMOGLOBIN AND Routine 08/04/2018 3:53 Results for this HEMATOCRIT PM [employer] procedure are in the results section. MAGNESIUM Routine 08/04/2018 3:53 Results for this PM [employer] procedure are in the results section. POCT-GLUCOSE METER Routine 08/04/2018 1:16 Results for this PM [employer] procedure are in the results section. POCT-GLUCOSE METER Routine 08/04/2018 6:37 Results for this AM [employer] procedure are in the results section. CBC W/PLT COUNT & AUTO Routine 08/04/2018 3:27 Results for this DIFFERENTIAL AM [employer] procedure are in the results section. CBC W/PLT COUNT & AUTO Routine 08/04/2018 3:27 Results for this DIFFERENTIAL AM [employer] procedure are in the results section. PT/APTT Routine 08/04/2018 3:27 Results for this AM [employer] procedure are in the results section. BILIRUBIN, DIRECT Routine 08/04/2018 3:27 Results for this AM [employer] procedure are in the results section. COMPREHENSIVE METABOLIC Routine 08/04/2018 3:27 Results for this PANEL AM [employer] procedure are in the results section. MAGNESIUM Routine 08/04/2018 3:27 Results for this AM [employer] procedure are in the results section. CALCIUM, IONIZED Routine 08/04/2018 3:27 Results for this AM [employer] procedure are in the results section. PHOSPHORUS Routine 08/04/2018 3:27 Results for this AM [employer] procedure are in the results section. POCT-GLUCOSE METER Routine 08/04/2018 1:17 Results for this AM [employer] procedure are in the results section. POCT-GLUCOSE METER Routine 08/03/2018 5:02 Results for this PM [employer] procedure are in the results section. POCT-GLUCOSE METER Routine 08/03/2018 11:46 Results for this AM [employer] procedure are in the results section. XR CHEST 1 VIEW Routine 08/03/2018 8:12 Results for this PORTABLE/BEDSIDE AM [employer] procedure are in the results section. POCT-GLUCOSE METER Routine 08/03/2018 6:58 Results for this AM [employer] procedure are in the results section. CBC W/PLT COUNT & AUTO Routine 08/03/2018 4:29 Results for this DIFFERENTIAL AM [employer] procedure are in the results section. BASIC METABOLIC PANEL Routine 08/03/2018 4:29 Results for this (7) AM [employer] procedure are in the results section. HIV-1 ANTIGEN WITH Routine 08/03/2018 4:29 Results for this HIV-1/2 ANTIBODY AM [employer] procedure are in the results section. AMMONIA Routine 08/03/2018 4:29 Results for this AM [employer] procedure are in the results section. CBC W/PLT COUNT & AUTO Routine 08/03/2018 4:29 Results for this DIFFERENTIAL AM [employer] procedure are in the results section. PT/APTT Routine 08/03/2018 4:29 Results for this AM [employer] procedure are in the results section. BILIRUBIN, DIRECT Routine 08/03/2018 4:29 Results for this AM [employer] procedure are in the results section. COMPREHENSIVE METABOLIC Routine 08/03/2018 4:29 Results for this PANEL AM [employer] procedure are in the results section. MAGNESIUM Routine 08/03/2018 4:29 Results for this AM [employer] procedure are in the results section. CALCIUM, IONIZED Routine 08/03/2018 4:29 Results for this AM [employer] procedure are in the results section. PHOSPHORUS Routine 08/03/2018 4:29 Results for this AM [employer] procedure are in the results section. POCT-GLUCOSE METER Routine 08/02/2018 11:51 Results for this PM [employer] procedure are in the results section. POCT-GLUCOSE METER Routine 08/02/2018 6:01 Results for this PM [employer] procedure are in the results section. US PARACENTESIS Routine 08/02/2018 3:09 Results for this PM [employer] procedure are in the results section. BODY FLUID CULTURE + Routine 08/02/2018 3:09 Results for this GRAM STAIN PM [employer] procedure are in the results section. BODY FLUID CELL COUNT Routine 08/02/2018 3:09 Results for this WITH DIFFERENTIAL PM [employer] procedure are in the results section. POCT-GLUCOSE METER Routine 08/02/2018 12:38 Results for this PM [employer] procedure are in the results section. MAGNESIUM Routine 08/02/2018 12:38 Results for this PM [employer] procedure are in the results section. XR CHEST 1 VIEW Routine 08/02/2018 6:55 Results for this PORTABLE/BEDSIDE AM [employer] procedure are in the results section. POCT-GLUCOSE METER Routine 08/02/2018 6:14 Results for this AM [employer] procedure are in the results section. PT/APTT Routine 08/02/2018 5:34 Results for this AM [employer] procedure are in the results section. CALCIUM, IONIZED Routine 08/02/2018 5:34 Results for this AM [employer] procedure are in the results section. POCT-GLUCOSE METER Routine 08/02/2018 5:28 Results for this AM [employer] procedure are in the results section. URINALYSIS W/ Routine 08/02/2018 5:01 Results for this MICROSCOPIC AM [employer] procedure are in the results section. CREATININE, RANDOM URINE Routine 08/02/2018 5:01 Results for this AM [employer] procedure are in the results section. PROTEIN, RANDOM URINE Routine 08/02/2018 5:01 Results for this AM [employer] procedure are in the results section. DRUG SCREEN, URINE, Routine 08/02/2018 5:01 TRANSPLANT AM [employer] CBC W/PLT COUNT & AUTO Routine 08/02/2018 4:58 Results for this DIFFERENTIAL AM [employer] procedure are in the results section. BASIC METABOLIC PANEL Routine 08/02/2018 4:58 Results for this (7) AM [employer] procedure are in the results section. CREATINE KINASE (CK) Routine 08/02/2018 4:58 Results for this AM [employer] procedure are in the results section. B-TYPE NATRIURETIC Routine 08/02/2018 4:58 Results for this FACTOR (BNP) AM [employer] procedure are in the results section. CBC W/PLT COUNT & AUTO Routine 08/02/2018 4:58 Results for this DIFFERENTIAL AM [employer] procedure are in the results section. BILIRUBIN, DIRECT Routine 08/02/2018 4:58 Results for this AM [employer] procedure are in the results section. COMPREHENSIVE METABOLIC Routine 08/02/2018 4:58 Results for this PANEL AM [employer] procedure are in the results section. MAGNESIUM Routine 08/02/2018 4:58 Results for this AM [employer] procedure are in the results section. PHOSPHORUS Routine 08/02/2018 4:58 Results for this AM [employer] procedure are in the results section. POCT-GLUCOSE METER Routine 08/01/2018 5:33 Results for this PM [employer] procedure are in the results section. XR CHEST 1 VIEW STAT 08/01/2018 5:32 Results for this PORTABLE/BEDSIDE PM [employer] procedure are in the results section. BASIC METABOLIC PANEL Routine 08/01/2018 5:25 Results for this (7) PM [employer] procedure are in the results section. MAGNESIUM Routine 08/01/2018 5:25 Results for this PM [employer] procedure are in the results section. POCT-GLUCOSE METER Routine 08/01/2018 5:01 Results for this PM [employer] procedure are in the results section. POCT-GLUCOSE METER Routine 08/01/2018 11:26 Results for this AM [employer] procedure are in the results section. XR CHEST 1 VIEW Routine 08/01/2018 7:22 Results for this PORTABLE/BEDSIDE AM [employer] procedure are in the results section. POCT-GLUCOSE METER Routine 08/01/2018 6:25 Results for this AM [employer] procedure are in the results section. (CELLAVISION MANUAL Routine 08/01/2018 3:35 Results for this DIFF) AM [employer] procedure are in the results section. CBC W/PLT COUNT & AUTO Routine 08/01/2018 3:35 Results for this DIFFERENTIAL AM [employer] procedure are in the results section. LACTIC ACID, VENOUS Routine 08/01/2018 3:35 Results for this AM [employer] procedure are in the results section. SOLUBLE LIVER ANTIGEN Routine 08/01/2018 3:35 Results for this (SLA) AM [employer] procedure are in the results section. CBC W/PLT COUNT & AUTO Routine 08/01/2018 3:35 Results for this DIFFERENTIAL AM [employer] procedure are in the results section. PT/APTT Routine 08/01/2018 3:35 Results for this AM [employer] procedure are in the results section. BILIRUBIN, DIRECT Routine 08/01/2018 3:35 Results for this AM [employer] procedure are in the results section. COMPREHENSIVE METABOLIC Routine 08/01/2018 3:35 Results for this PANEL AM [employer] procedure are in the results section. MAGNESIUM Routine 08/01/2018 3:35 Results for this AM [employer] procedure are in the results section. CALCIUM, IONIZED Routine 08/01/2018 3:35 Results for this AM [employer] procedure are in the results section. PHOSPHORUS Routine 08/01/2018 3:35 Results for this AM [employer] procedure are in the results section. BASIC METABOLIC PANEL STAT 08/01/2018 1:54 Results for this (7) AM [employer] procedure are in the results section. POCT-GLUCOSE METER Routine 08/01/2018 1:53 Results for this AM [employer] procedure are in the results section. ECG 12-LEAD STAT 08/01/2018 12:41 Results for this AM [employer] procedure are in the results section. TROPONIN I STAT 08/01/2018 12:30 Results for this AM [employer] procedure are in the results section. POCT-GLUCOSE METER Routine 07/31/2018 11:39 Results for this PM [employer] procedure are in the results section. TRIGLYCERIDES Routine 07/31/2018 10:18 Results for this PM [employer] procedure are in the results section. C-REACTIVE PROTEIN Routine 07/31/2018 10:18 Results for this PM [employer] procedure are in the results section. LACTIC ACID, ARTERIAL Routine 07/31/2018 9:39 Results for this PM [employer] procedure are in the results section. ECHOCARDIOGRAM REPORT - 07/31/2018 9:20 SCAN PM [employer] POCT-GLUCOSE METER Routine 07/31/2018 7:09 Results for this PM [employer] procedure are in the results section. TRANSFUSION SERVICE 07/31/2018 6:01 REPORT - SCAN PM [employer] JUAN DIEGO TITER AND PATTERN Routine 07/31/2018 5:19 Results for this PM [employer] procedure are in the results section. CARBOHYDRATE ANTIGEN Routine 07/31/2018 5:19 Results for this 19-9 (CA 19-9) PM [employer] procedure are in the results section. HEPATITIS C PCR, Routine 07/31/2018 5:19 Results for this QUANTITATIVE PM [employer] procedure are in the results section. HEPATITIS C GENOTYPE Routine 07/31/2018 5:19 Results for this [employer] procedure are in the results section. LIVER-KIDNEY MICROSOME Routine 07/31/2018 5:19 Results for this AB [employer] procedure are in the results section. CERULOPLASMIN Routine 07/31/2018 5:19 Results for this [employer] procedure are in the results section. ANTI-NUCLEAR ANTIBODY Routine 07/31/2018 5:19 Results for this (JUAN DIEGO) PM [employer] procedure are in the results section. [id number]\\, Routine 07/31/2018 5:19 Results for this SERUM PM [employer] procedure are in the results section. ACTIN (SMOOTH MUSCLE) Routine 07/31/2018 5:19 Results for this ANTIBODY, IGG PM [employer] procedure are in the results section. LACTIC ACID, ARTERIAL Routine 07/31/2018 5:19 Results for this [employer] procedure are in the results section. US ABDOMINAL WITH YARELI 07/31/2018 4:37 Results for this DOPPLER PM [employer] procedure are in the results section. CARCINOEMBRYONIC ANTIGEN Routine 07/31/2018 4:06 Results for this (CEA) PM [employer] procedure are in the results section. ALPHA FETOPROTEIN (AFP), Routine 07/31/2018 4:06 Results for this TUMOR MARKER PM [employer] procedure are in the results section. HEPATITIS B SURFACE Routine 07/31/2018 4:06 Results for this ANTIGEN PM [employer] procedure are in the results section. HEPATITIS B SURFACE Routine 07/31/2018 4:06 Results for this ANTIBODY PM [employer] procedure are in the results section. HEPATITIS B CORE Routine 07/31/2018 4:06 Results for this ANTIBODY, TOTAL PM [employer] procedure are in the results section. HEPATITIS A ANTIBODY, Routine 07/31/2018 4:06 Results for this IGG PM [employer] procedure are in the results section. IRON, TIBC, % SAT. Routine 07/31/2018 4:06 Results for this (WITHOUT FERRITIN) PM [employer] procedure are in the results section. ANTI-MITOCHONDRIAL AB, Routine 07/31/2018 4:06 REFLEX TO TITER PM [employer] BLOOD CULTURE STAT 07/31/2018 4:06 Results for this PM [employer] procedure are in the results section. FERRITIN Routine 07/31/2018 4:05 Results for this PM [employer] procedure are in the results section. VANCOMYCIN LEVEL, TROUGH Timed 07/31/2018 4:05 Results for this [employer] procedure are in the results section. MAGNESIUM Routine 07/31/2018 4:05 Results for this PM [employer] procedure are in the results section. BLOOD CULTURE STAT 07/31/2018 4:05 Results for this PM [employer] procedure are in the results section. MISCELLANEOUS LAB ORDER Routine 07/31/2018 3:51 PM [employer] XR CHEST 1 VIEW STAT 07/31/2018 3:50 Results for this PORTABLE/BEDSIDE PM [employer] procedure are in the results section. UREA NITROGEN, RANDOM STAT 07/31/2018 12:40 Results for this URINE PM [employer] procedure are in the results section. CREATININE, RANDOM URINE STAT 07/31/2018 12:40 Results for this PM [employer] procedure are in the results section. SODIUM, RANDOM URINE STAT 07/31/2018 12:40 Results for this PM [employer] procedure are in the results section. OSMOLALITY, URINE STAT 07/31/2018 12:40 Results for this PM [employer] procedure are in the results section. POCT-GLUCOSE METER Routine 07/31/2018 11:50 Results for this AM [employer] procedure are in the results section. HEPATIC FUNCTION PANEL STAT 07/31/2018 10:01 Results for this AM [employer] procedure are in the results section. OSMOLALITY, SERUM STAT 07/31/2018 10:01 Results for this AM [employer] procedure are in the results section. LACTIC ACID, ARTERIAL Routine 07/31/2018 10:01 Results for this AM [employer] procedure are in the results section. BASIC METABOLIC PANEL Routine 07/31/2018 10:01 Results for this (7) AM [employer] procedure are in the results section. BLOOD GAS, ARTERIAL Routine 07/31/2018 6:54 Results for this AM [employer] procedure are in the results section. XR CHEST 1 VIEW Routine 07/31/2018 4:35 Results for this PORTABLE/BEDSIDE AM [employer] procedure are in the results section. BLOOD GAS, ARTERIAL STAT 07/31/2018 3:47 Results for this AM [employer] procedure are in the results section. (CELLAVISION MANUAL Routine 07/31/2018 3:46 Results for this DIFF) AM [employer] procedure are in the results section. CBC W/PLT COUNT & AUTO Routine 07/31/2018 3:46 Results for this DIFFERENTIAL AM [employer] procedure are in the results section. CBC W/PLT COUNT & AUTO Routine 07/31/2018 3:46 Results for this DIFFERENTIAL AM [employer] procedure are in the results section. PT/APTT Routine 07/31/2018 3:46 Results for this AM [employer] procedure are in the results section. MAGNESIUM Routine 07/31/2018 3:46 Results for this AM [employer] procedure are in the results section. CALCIUM, IONIZED Routine 07/31/2018 3:46 Results for this AM [employer] procedure are in the results section. LACTIC ACID, ARTERIAL Routine 07/31/2018 3:46 Results for this AM [employer] procedure are in the results section. BASIC METABOLIC PANEL Routine 07/31/2018 3:46 Results for this (7) AM [employer] procedure are in the results section. PREALBUMIN Routine 07/31/2018 3:46 Results for this AM [employer] procedure are in the results section. ALBUMIN Routine 07/31/2018 3:46 Results for this AM [employer] procedure are in the results section. PHOSPHORUS Routine 07/31/2018 3:46 Results for this AM [employer] procedure are in the results section. MAGNESIUM STAT 07/31/2018 12:48 Results for this AM [employer] procedure are in the results section. HEMOGLOBIN AND STAT 07/31/2018 12:48 Results for this HEMATOCRIT AM [employer] procedure are in the results section. BASIC METABOLIC PANEL STAT 07/31/2018 12:48 Results for this (7) AM [employer] procedure are in the results section. POCT-GLUCOSE METER Routine 07/30/2018 11:16 Results for this PM [employer] procedure are in the results section. MAGNESIUM Routine 07/30/2018 11:04 Results for this PM [employer] procedure are in the results section. HEMOGLOBIN AND Routine 07/30/2018 11:03 Results for this HEMATOCRIT PM [employer] procedure are in the results section. CALCIUM, IONIZED STAT 07/30/2018 11:03 Results for this PM [employer] procedure are in the results section. LACTIC ACID, ARTERIAL Routine 07/30/2018 11:03 Results for this PM [employer] procedure are in the results section. POCT-GLUCOSE METER Routine 07/30/2018 9:06 Results for this PM [employer] procedure are in the results section. LACTIC ACID, ARTERIAL STAT 07/30/2018 7:00 Results for this PM [employer] procedure are in the results section. BLOOD GAS, ARTERIAL STAT 07/30/2018 4:15 Results for this PM [employer] procedure are in the results section. 2D ECHO W/ DOPPLER STAT 07/30/2018 3:56 Results for this (CW/PW/COLOR) [employer] procedure are in the results section. BLOOD GAS, ARTERIAL STAT 07/30/2018 2:42 Results for this PM [employer] procedure are in the results section. PHOSPHORUS STAT 07/30/2018 2:36 Results for this PM [employer] procedure are in the results section. MAGNESIUM STAT 07/30/2018 2:36 Results for this PM [employer] procedure are in the results section. BASIC METABOLIC PANEL STAT 07/30/2018 2:36 Results for this (7) PM [employer] procedure are in the results section. CBC (HEMOGRAM ONLY) STAT 07/30/2018 2:36 Results for this PM [employer] procedure are in the results section. LACTIC ACID, VENOUS Routine 07/30/2018 2:36 Results for this PM [employer] procedure are in the results section. XR CHEST 1 VIEW Routine 07/30/2018 1:12 Results for this PORTABLE/BEDSIDE PM [employer] procedure are in the results section. POCT-GLUCOSE METER Routine 07/30/2018 12:46 Results for this [employer] procedure are in the results section. TISSUE EXAM AP Routine 07/30/2018 11:01 Results for this AM [employer] procedure are in the results section. HGB/HCT (H&H) - STAT LAB STAT 07/30/2018 10:22 Results for this AM [employer] procedure are in the results section. GLUCOSE-STAT LAB STAT 07/30/2018 10:22 Results for this AM [employer] procedure are in the results section. POTASSIUM-STAT LAB STAT 07/30/2018 10:22 Results for this AM [employer] procedure are in the results section. SODIUM NA-STAT LAB STAT 07/30/2018 10:22 Results for this AM [employer] procedure are in the results section. BLOOD GAS, ARTERIAL STAT 07/30/2018 10:22 Results for this AM [employer] procedure are in the results section. CALCIUM, IONIZED STAT 07/30/2018 10:22 Results for this AM [employer] procedure are in the results section. RRL CRITICAL LABS STAT 07/30/2018 10:22 Results for this (ABG,NA,K,H&H,GLUCOSE) AM [employer] procedure are in the results section. SURGICALLY OBTAINED Routine 07/30/2018 9:40 Results for this CULTURE + GRAM STAIN AM [employer] procedure are in the results section. FUNGUS CULTURE + SMEAR Routine 07/30/2018 9:40 AM [employer] ANAEROBIC CULTURE Routine 07/30/2018 9:40 Results for this AM [employer] procedure are in the results section. AFB CULTURE + SMEAR Routine 07/30/2018 9:40 AM [employer] ECG 12-LEAD Routine 07/30/2018 8:07 Results for this AM [employer] procedure are in the results section. ECG 12-LEAD Routine 07/30/2018 8:07 AM [employer] Procedure Note - Interface, External Ris In - 07/30/2018 8:11 AM [employer] Ventricular Rate 102 BPM Atrial Rate 102 BPM P-R Interval 152 ms QRS Duration 112 ms Q-T Interval 414 ms QTC Calculation(Bazett) 539 ms P Bent 38 degrees R Bent -48 degrees T Bent 37 degrees Sinus tachycardia with Premature atrial complexes Incomplete right bundle branch block Left anterior fascicular block Cannot rule out Anterior infarct , age undetermined Prolonged QT Abnormal ECG No previous ECGs available LAPAROTOMY,EXPLORATORY 07/30/2018 8:00 Perforated bowel AM [employer]ALL [employer]OR (HCC) PREPARE LEUKO-REDUCED RBC Routine 07/30/2018 7:53 Results for AM [employer] SUPER[employer]OR this procedure are in the results section. POCT-GLUCOSE METER Routine 07/30/2018 6:30 Results for AM [employer] SUPER[employer]OR this procedure are in the results section. OSMOLALITY, URINE Routine 07/30/2018 6:24 Results for AM [employer]PER[employer]OR this procedure are in the results section. CREATININE, RANDOM URINE Routine 07/30/2018 6:24 Results for AM [employer]PER[employer]OR this procedure are in the results section. SODIUM, RANDOM URINE Routine 07/30/2018 6:24 Results for AM [employer]PER[employer] this procedure are in the results section. ABORH, MANUAL STAT 07/30/2018 6:09 Results for AM [employer] this procedure are in the results section. TROPONIN I Routine 07/30/2018 6:09 Results for AM [employer]PER[employer] this procedure are in the results section. LACTIC ACID, VENOUS Routine 07/30/2018 6:09 Results for AM [employer] this procedure are in the results section. BLOOD GAS, VENOUS STAT 07/30/2018 6:09 Results for AM [employer] this procedure are in the results section. XR ABDOMEN 1 VIEW STAT 07/30/2018 5:29 Results for AM [employer] this procedure are in the results section. XR CHEST 1 VIEW STAT 07/30/2018 5:26 Results for PORTABLE/BEDSIDE AM [employer] this procedure are in the results section. ANTIBODY SCREEN Routine 07/30/2018 4:56 Results for AM [employer] this procedure are in the results section. ABORH, MANUAL Routine 07/30/2018 4:56 Results for AM [employer] this procedure are in the results section. PROCALCITONIN STAT 07/30/2018 4:56 Results for AM [employer]PER[employer] this procedure are in the results section. BLOOD CULTURE IDENTIFICATION Routine 07/30/2018 4:39 Results for PANEL AM [employer] this procedure are in the results section. BLOOD CULTURE IDENTIFICATION Routine 07/30/2018 4:39 Results for PANEL AM [employer] this procedure are in the results section. BLOOD CULTURE Routine 07/30/2018 4:39 Results for AM [employer]PER[employer] this procedure are in the results section. BLOOD CULTURE Routine 07/30/2018 4:39 Results for AM [employer]PER[employer] this procedure are in the results section. (CELLAVISION MANUAL DIFF) STAT 07/30/2018 4:29 Results for AM [employer] this procedure are in the results section. CBC W/PLT COUNT & AUTO STAT 07/30/2018 4:29 Results for DIFFERENTIAL AM [employer] this procedure are in the results section. PHOSPHORUS STAT 07/30/2018 4:29 Results for AM [employer]PER[employer] this procedure are in the results section. MAGNESIUM STAT 07/30/2018 4:29 Results for AM [employer]PER[employer] this procedure are in the results section. PT/APTT STAT 07/30/2018 4:29 Results for AM [employer]PER[employer] this procedure are in the results section. LACTIC ACID, VENOUS STAT 07/30/2018 4:29 Results for AM [employer]PER[employer] this procedure are in the results section. LIPASE Routine 07/30/2018 4:29 Results for AM [employer]PER[employer] this procedure are in the results section. AMYLASE Routine 07/30/2018 4:29 Results for AM [employer]PER[employer] this procedure are in the results section. COMPREHENSIVE METABOLIC PANEL STAT 07/30/2018 4:29 Results for AM [employer]PER[employer] this procedure are in the results section. CBC W/PLT COUNT & AUTO STAT 07/30/2018 4:29 Results for DIFFERENTIAL AM [employer] this procedure are in the results section. after 08/15/2017 Results EKG-SCANNED (08/15/2018 10:52 AM CDT) Narrative Performed At RHYTHM STRIP - SCAN (08/15/2018 10:52 AM CDT) Narrative Performed At POC-Glucose meter (08/11/2018 3:48 PM [employer]ALL [employer]PERVISOR)Only the most recent of49 resultswithin the time period is included. POC-Glucose Meter 163 (H)Comment: TESTED AT 70 - 110 mg/dL [facility] [address] [facility] [place] [address] Specimen Blood Performing Organization Address City/State/Zipcode Phone Number [address] [address] C[place] PT/aPTT (08/11/2018 5:04 AM [employer]ALL SUPERVISOR)Only the most recent of13 resultswithin the time period is included. Protime 16.4 (H) 11.7 - 14.7 seconds [facility] INR 1.3 <=5.9 [facility] PTT 37.4 (H) 22.5 - 36.0 seconds [facility] Specimen Blood Narrative Performed At RECOMMENDED COUMADIN/WARFARIN INR THERAPY [facility] RANGES STANDARD DOSE: 2.0 - 3.0 Includes: PROPHYLAXIS for venous thrombosis, systemic embolization; TREATMENT for venous thrombosis and/or pulmonary embolus. HIGH RISK: Target INR is 2.5-3.5 for patients with mechanical heart valves. Performing Organization Address [facility] Phone Number [address] [address] [place] Calcium, Ionized (08/11/2018 5:04 AM STUDY HALL SUPERVISOR)Only the most recent of14 resultswithin the time period is included. Calcium, Ion 0.97 (L) 1.12 - 1.27 mmol/L [facility] pH, Blood 7.40 [facility] Specimen Blood Performing Organization Address [facility] Phone Number [address] [address] [phone] [place] CBC with platelet count + automated diff (08/11/2018 5:04 AM STUDY HALL SUPERVISOR)Only the most recent of13 resultswithin the time period is included. WBC 6.4 3.5 - 10.5 K/L [facility] RBC 3.34 (L) 4.63 - 6.08 M/L [facility] Hemoglobin 10.6 (L) 13.7 - 17.5 GM/DL [facility] Hematocrit 31.9 (L) 40.1 - 51.0 % [facility] MCV 95.5 (H) 79.0 - 92.2 fL [facility] MCH 31.7 25.7 - 32.2 pg [facility] MCHC 33.2 32.3 - 36.5 GM/DL [facility] RDW 18.6 (H) 11.6 - 14.4 % [facility] Platelets 104 (L) 150 - 450 K/CU MM [facility] MPV 11.6 9.4 - 12.4 fL [facility] nRBC 0 0 - 0 /100 WBC [facility] % Neutros 78 % [facility] % Lymphs 10 % [facility] % Monos 10 % [facility] % Eos 1 % [facility] % Baso 0 % [facility] # Neutros 5.01 1.78 - 5.38 K/L [facility] # Lymphs 0.64 (L) 1.32 - 3.57 K/L [facility] # Monos 0.61 0.30 - 0.82 K/L [facility] # Eos 0.08 0.04 - 0.54 K/L [facility] # Baso 0.02 0.01 - 0.08 K/L [facility] Immature Granulocytes-Relative 1 0 - 1 % [facility] Specimen Blood Performing Organization Address City/[facility] Phone Number [address] [address] [place] Phosphorus (08/11/2018 5:04 AM STUD[employer] HALL SUPERVISOR)Only the most recent of14 resultswithin the time period is included. Phosphorus 3.1 2.3 - 4.7 mg/dL [facility] Specimen Blood Performing Organization Address City/State/Zipcode Phone Number [address] [address] [place] Magnesium (08/11/2018 5:04 AM STUDY HALL SUPERVISOR)Only the most recent of24 resultswithin the time period is included. Magnesium 1.7 1.6 - 2.6 mg/dL [facility] Specimen Blood Performing Organization Address City/State/Zipcode Phone Number [facility] [address] [place] [address] [place] Bilirubin, direct (08/11/2018 5:04 AM STUDY HALL SUPERVISOR)Only the most recent of11 resultswithin the time period is included. Bilirubin, Direct 1.1 (H) 0.1 - 0.5 mg/dL [facility] Specimen Blood Performing Organization Address City/State/Zipcode Phone Number [facility] [address] [place], [place] [phone] [place] Comprehensive metabolic panel (08/11/2018 5:04 AM STUDY HALL SUPERVISOR)Only the most recent of12 resultswithin the time period is included. Protein, Total 5.9 (L) 6.0 - 8.3 gm/dL [facility] Albumin 2.0 (L) 3.5 - 5.0 g/dL [facility] Alkaline Phosphatase 153 (H) 40 - 150 U/L [facility] Total Bilirubin 1.4 (H) 0.2 - 1.2 mg/dL [facility] Sodium 135 (L) 136 - 145 meq/L [facility] Potassium 3.8 3.5 - 5.1 meq/L [facility] Chloride 107 98 - 107 meq/L [facility] CO2 24 22 - 29 meq/L [facility] BUN 27 (H) 7 - 21 mg/dL [facility] Creatinine 1.15 0.57 - 1.25 mg/dL [facility] Glucose 107 (H) 70 - 105 mg/dL [facility] Calcium 7.8 (L) 8.4 - 10.2 mg/dL [facility] AST 66 (H) 5 - 34 U/L [facility] ALT 29 6 - 55 U/L [facility] EGFR 66Comment: ESTIMATED GFR mL/min/1.73 sq m [facility] IS NOT ACCURATE [facility] CREATININE CLEARANCE IN PREDICTING GLOMERULAR FILTRATION RATE. ESTIMATED GFR IS NOT APPLICABLE FOR DIALYSIS PATIENTS. Specimen Blood Performing Organization Address City/State/Zipcode Phone Number [facility] [address] [place] [address] [phone] CENTER US paracentesis (08/10/2018 3:30 PM STUDY HALL SUPERVISOR)Only the most recent of3 resultswithin the time period is included. Narrative Performed At FINAL REPORT [facility] PROCEDURE: Ultrasound-guided paracentesis. INDICATION: 58-year-old man with ascites. DESCRIPTION: After obtaining informed written consent, ultrasound scan of the abdomen identified ascites in the right lower quadrant. The overlying skin was prepped and draped in the usual, sterile fashion and local 1% lidocaine anesthesia was administered. A 5 [place] catheter was advanced into the peritoneal cavity and 1200 cc of serosanguineous fluid was removed. The catheter was removed without immediate complication. Samples were sent for analysis. IMPRESSION: Uncomplicated ultrasound-guided paracentesis with 1200 cc fluid removed. Signed: Efren Rosas MD Report Verified Date/Time:08/10/2018 16:04:03 Reading Location: [address] Ultrasound Reading Room Procedure Note Interface, External Ris In - 08/10/2018 4:06 PM STUDY HALL SUPERVISOR FINAL REPORT PROCEDURE: Ultrasound-guided paracentesis. INDICATION: 58-year-old man with ascites. DESCRIPTION: After obtaining informed written consent, ultrasound scan of the abdomen identified ascites in the right lower quadrant. The overlying skin was prepped and draped in the usual, sterile fashion and local 1% lidocaine anesthesia was administered. A 5 [place] catheter was advanced into the peritoneal cavity and 1200 cc of serosanguineous fluid was removed. The catheter was removed without immediate complication. Samples were sent for analysis. IMPRESSION: Uncomplicated ultrasound-guided paracentesis with 1200 cc fluid removed. Signed: Efren Rosas MD Report Verified Date/Time: 08/10/2018 16:04:03 Reading Location: [address] Ultrasound Reading Room Performing Organization Address City/State/Zipcode Phone Number [facility] Body fluid cell count with differential (08/10/2018 3:29 PM STUDY HALL SUPERVISOR)Only the most recent of3 resultswithin the time period is included. Appearance Cloudy (A) Clear [facility] Color [place] (A) Colorless, Straw [facility] RBCs 10,000 (H) <=1 /cu mm [facility] Adjusted WBC Count 240 (H) <=5 /cu mm [facility] Lining Cells 0 <=1 /cu mm [facility] % Segs 22 % [facility] % Lymphs 43 % [facility] % Monos 35 % [facility] % Eos 0 % [facility] % Baso 0 % [facility] Container Body Fluid EDTA Tube [facility] Specimen Body Fluid - Ascites Performing Organization Address [facility] Phone Number [address] [phone] [place] Body fluid culture + gram stain (08/10/2018 3:28 PM STUDY HALL SUPERVISOR)Only the most recent of3 resultswithin the time period is included. Result No growth [facility] Gram Stain Result <1+ WBCs [facility] Gram Stain Result No organisms seen [facility] Specimen Body Fluid - Ascites Performing Organization Address [facility] Phone Number [address] [address] [place] NM bone scan whole body (08/09/2018 3:36 PM STUDY HALL SUPERVISOR) Narrative Performed At FINAL REPORT [facility] PROCEDURE: BONE SCAN, WHOLE BODY CPT CODE:[id number] INDICATION:HCC PROTOCOL:31.3 mCi of Tc-99m MDP was [...] MD Report Verified Date/Time:08/09/2018 16:34:55 Reading Location: [address] [employer] Reading Room Procedure Note Interface, External Ris In - 08/09/2018 4:37 PM STUDY HALL SUPERVISOR FINAL REPORT PROCEDURE: BONE SCAN, WHOLE BODY CPT CODE: 04358 INDICATION: HCC PROTOCOL: 31.3 mCi of Tc-99m [...] Report Verified Date/Time: 08/09/2018 16:34:55 Reading Location: [address] [employer] Reading Room Performing Organization Address City/State/Zipcode Phone Number [facility] CT chest without IV contrast (08/08/2018 5:45 PM STUDY HALL SUPERVISOR) Narrative Performed At FINAL REPORT [facility] CT scan of the chest. CLINICAL HISTORY: [...] MD Report Verified Date/Time:08/08/2018 20:21:41 Reading Location: [address] Consult Reading Room Procedure Note Interface, External Ris In - 08/08/2018 8:23 PM STUDY HALL SUPERVISOR FINAL REPORT CT scan of the chest. [...] Report Verified Date/Time: 08/08/2018 20:21:41 Reading Location: [facility] C013 Consult Reading Room Performing Organization Address City/State/Zipcode Phone Number [facility] MR abdomen without & with IV contrast (08/08/2018 12:39 AM STUDY HALL SUPERVISOR) Narrative Performed At FINAL REPORT [facility] INDICATION: Cirrhosis. Surveillance for hepatocellular carcinoma. COMPARISON: [...] MD Report Verified Date/Time:08/08/2018 14:37:29 Reading Location: [facility] B1 C013Y CT Body Reading Room Procedure Note Interface, External Ris In - 08/08/2018 2:39 PM STUDY HALL SUPERVISOR FINAL REPORT INDICATION: Cirrhosis. Surveillance for hepatocellular [...] Report Verified Date/Time: 08/08/2018 14:37:29 Reading Location: [facility] B1 C013Y CT Body Reading Room Performing Organization Address City/State/Zipcode Phone Number [facility] C-Reactive Protein (08/07/2018 4:41 AM STUDY HALL SUPERVISOR)Only the most recent of2 resultswithin the time period is included. CRP 3.98 (H) 0.00 - 0.50 mg/dL [facility] Specimen Blood Performing Organization Address [facility] Phone Number [address] [address] [phone] CENTER Triglycerides (08/07/2018 4:41 AM STUDY HALL SUPERVISOR)Only the most recent of2 resultswithin the time period is included. Triglycerides 64 mg/dL [facility] Specimen Blood Narrative Performed At TRIGLYCERIDE REFERENCE RANGE [facility] Low Risk<150 Borderline Risk 150-199 High Oqcm552-293 Very High Risk >=500 Specimen slightly icteric Performing Organization Address [facility] Phone Number [address] [address] [phone] [place] Prealbumin (08/07/2018 4:41 AM STUDY HALL SUPERVISOR)Only the most recent of2 resultswithin the time period is included. Prealbumin 7 (L) 14 - 45 mg/dL [facility] Specimen Blood Performing Organization Address [facility] Phone Number [address] [address] [phone] [place] Protein, body fluid (08/06/2018 2:02 PM STUDY HALL SUPERVISOR) Protein, Fluid 1.8 g/dL [facility] Specimen Body Fluid - Ascites Narrative Performed At Absence of reference range indicates that [facility] normals have not been defined. Assay performance has not been validated for this type of specimen. Performing Organization Address [facility] Phone Number [address] [address] [place] Albumin, body fluid (08/06/2018 2:02 PM STUDY HALL SUPERVISOR) Albumin, Fluid 1.0 gm/dL [facility] Specimen Body Fluid - Ascites Narrative Performed At Reference Range:No Normals [facility] Assay performance has not been validated for this type of specimen. Performing Organization Address City/State/Zipcode Phone Number [address] [phone] CENTER Cytology (08/06/2018 2:00 PM STUDY HALL SUPERVISOR) Case Report Medical Cytology Report Case: [id number] [facility] Authorizing Provider:Anjel Moya MDCollected: 08/06/2018 1400 [facility] Ordering Location: [address] Received: 08/08/2018 0943 Service Pathologist: Nadege Busby MD Specimen:Peritoneal Fluid DIAGNOSIS PERITONEAL FLUID (CYTOSPINS AND CELL BLOCK): [facility] - NEGATIVE FOR MALIGNANCY [facility] PREDOMINANTLY BLOOD; ACUTE INFLAMMATORY CELLS Signing Pathologist Direct Phone Line: [phone] CPT Code(s) 76483, 74718 [facility] CLINICAL DATA Ascites, recently diagnosed [facility] with hepatocellular [facility] carcinoma (see [id number]) SPECIMEN SOURCE PERITONEAL FLUID [facility] GROSS DESCRIPTION 1000 mls orange; 4 cytospins, cell block [facility] Collected: [id number] [facility] Received: [id number] MICROSCOPIC DESCRIPTION Performed. [facility] STATEMENT OF ADEQUACY Satisfactory [facility] Gross assessment was [facility] performed at [place], Department of [facility] Pathology, [address] [place] [address], Technical component was [facility] performed at [place], Department [facility] Pathology, [address] [place] [address], Professional component was [facility] performed at [place], Department of [facility] Pathology, [address] [place] [address], Specimen Body Fluid - Peritoneal Fluid Narrative Performed At Performing Organization Address City/State/Zipcode Phone Number [address] [address] [phone] [place] B-type Natriuretic Factor (BNP) (08/06/2018 4:32 AM STUDY HALL SUPERVISOR)Only the most recent of2 resultswithin the time period is included. BNP 139 (H) 0 - 100 pg/mL [facility] Specimen Blood Performing Organization Address City/[facility]/Zipcode Phone Number [address] [address] [place] Hemoglobin and hematocrit (08/04/2018 3:53 PM STUDY HALL SUPERVISOR)Only the most recent of3 resultswithin the time period is included. Hemoglobin 12.3 (L) 13.7 - 17.5 GM/DL [facility] Hematocrit 35.2 (L) 40.1 - 51.0 % [facility] Specimen Blood - Central Venous Line Performing Organization Address [facility] Phone Number [address] [address] [place] XR chest 1 view portable / bedside (08/03/2018 8:12 AM STUDY HALL SUPERVISOR)Only the most recent of8 resultswithin the time period is included. Narrative Performed At FINAL REPORT RIS AP view of the chest dated 08/03/2018 COMPARISON: 08/02/2018 CLINICAL INFORMATION: pleural effusion vs atelectasis Comment:Heart is normal in size. Pulmonary vasculature is unremarkable. Lungs are clear. No pulmonary infiltrate or pleural effusion is present. Left PICC line remains in place. Impression:No interval change. Signed: Elsy Tafoya MD Report Verified Date/Time:08/03/2018 09:00:26 Reading Location: [facility] Radiology Reading Room Procedure Note Interface, External Ris In - 08/03/2018 9:02 AM STUDY HALL SUPERVISOR FINAL REPORT AP view of the chest dated 08/03/2018 COMPARISON: 08/02/2018 CLINICAL INFORMATION: pleural effusion vs atelectasis Comment: Heart is normal in size. Pulmonary vasculature is unremarkable. Lungs are clear. No pulmonary infiltrate or pleural effusion is present. Left PICC line remains in place. Impression: No interval change. Signed: Elsy Tafoya MD Report Verified Date/Time: 08/03/2018 09:00:26 Reading Location: [facility] Reading Room Performing Organization Address City/[facility]/Zipcode Phone Number GE R[facility] HIV-1 Antigen with HIV-1/2 Antibody (08/03/2018 4:29 AM STUDY HALL SUPERVISOR) HIV-1 Antigen with HIV 1&2 NON-REACTIVE Nonreactive [facility] Antibody [facility] Specimen Blood - Central Venous Line Performing Organization Address [facility] Phone Number [address] [address] CENTER Ammonia (08/03/2018 4:29 AM STUDY HALL SUPERVISOR) Ammonia 50 18 - 72 mol/L [facility] Specimen Blood - Central Venous Line Performing Organization Address [facility] Phone Number [address] [address] [phone] CENTER Basic Metabolic Panel (08/03/2018 4:29 AM STUDY HALL SUPERVISOR)Only the most recent of8 resultswithin the time period is included. Sodium 132 (L) 136 - 145 meq/L [facility] Potassium 4.0 3.5 - 5.1 meq/L [facility] Chloride 102 98 - 107 meq/L [facility] CO2 24 22 - 29 meq/L [facility] BUN 84 (H) 7 - 21 mg/dL [facility] Creatinine 2.09 (H) 0.57 - 1.25 mg/dL [facility] Glucose 99 70 - 105 mg/dL [facility] Calcium 8.0 (L) 8.4 - 10.2 mg/dL [facility] EGFR 33Comment: ESTIMATED GFR IS mL/min/1.73 sq m [facility] NOT ACCURATE [facility] CLEARANCE IN PREDICTING GLOMERULAR FILTRATION RATE. ESTIMATED GFR IS NOT APPLICABLE FOR DIALYSIS PATIENTS. Specimen Blood - Central Venous Line Performing Organization Address [facility]/Zipcode Phone Number [address] [phone] [place] Drug screen, urine, transplant (08/02/2018 5:01 AM STUDY HALL SUPERVISOR) Specimen Urine Narrative Performed At Performing Organization Address [facility]/Zipcode Phone Number [facility] [address] [place] [phone] Protein, random urine (08/02/2018 5:01 AM STUDY HALL SUPERVISOR) Protein, Urine 33 (H) 0 - 14 mg/dL [facility] Specimen Urine - Urine, Clean Catch Performing Organization Address [facility] Phone Number [address] [address] [phone] [place] Creatinine, random urine (08/02/2018 5:01 AM STUDY HALL SUPERVISOR)Only the most recent of3 resultswithin the time period is included. Creatinine, Ur 110.8 mg/dL [facility] Specimen Urine - Urine, Clean Catch Narrative Performed At Reference Range: No Normals [facility] Performing Organization Address [facility] Phone Number [address] [address] [phone] CENTER Urinalysis w/Microscopic (08/02/2018 5:01 AM STUDY HALL SUPERVISOR) Color, UA Yellow [facility] Clarity, UA Hazy [facility] Specific [place], UA 1.017 1.001 - 1.035 [facility] pH, UA 5.5 5.0 - 8.0 [facility] Protein, UA 20 mg/dL (A) Negative [facility] Glucose, UA Negative Negative [facility] Ketones, UA Negative Negative [facility] Bilirubin, UA Negative Negative [facility] Blood, UA Trace (A) Negative [facility] Nitrite, UA Negative Negative [facility] Leukocytes, UA Small (A) Negative [facility] Urobilinogen, UA 0.2 0.2 - 1.0 mg/dL [facility] RBC, UA 4 /HPF [facility] WBC, UA 17 /HPF [facility] Bacteria, UA Rare [facility] Mucus Rare [facility] Squam Epithel, UA 8 /HPF [facility] Hyaline Casts, UA 28 /LPF [facility] Amorphous Crystals Occasional [facility] Specimen Source Urine, Clean Catch [facility] Specimen Urine - Urine, Clean Catch Performing Organization Address City/State/Zipcode Phone Number [address] [address] [place] Creatine Kinase (CK) (08/02/2018 4:58 AM STUDY HALL SUPERVISOR) Total CK 114 29 - 200 U/L [facility] Specimen Blood Performing Organization Address City/[facility] Phone Number [address] [address] [phone] [place] SOLUBLE LIVER ANTIGEN (SLA) (08/01/2018 3:35 AM STUDY HALL SUPERVISOR) Soluble Liver Antigen <20.1 See Note: U [...] Venous Line Narrative Performed At Performing Lab [facility] [address] [place] [address] Sal Stratton MD, PhD, TRIN[place] Performing Organization Address City/State/Zipcode Phone Number [facility], [place] [address] [facility]ORPORATED [address] [employer] [facility] Manual Differential (08/01/2018 3:35 AM STUDY HALL SUPERVISOR)Only the most recent of3 resultswithin the time period is included. % Neutros 90 % [facility] % Lymphs 1 % [facility] % Monos 4 % [facility] % Bands 5 0 - 10 % [facility] # Neutros 13.41 (H) 1.78 - 5.38 K/ul [facility] # Lymphs 0.15 (L) 1.32 - 3.57 K/ul [facility] # Monos 0.60 0.30 - 0.82 K/uL [facility] # Bands 0.75 0.00 - 0.80 K/uL [facility] Total Counted 100 [facility] WBC Morphology Normal [facility] Platelet Morphology Normal [facility] Anisocytosis 2+ moderate [facility] Macrocytes 2+ moderate [facility] Poikilocytes 2+ moderate [facility] [place] Cells 1+ few [facility] Artifact Present [facility] Platelet Conc Decreased [facility] Specimen Blood - Central Venous Line Narrative Performed At Received comment: [facility] User comments: Slide comments: Performing Organization Address City/State/Zipcode Phone Number [facility] [address] [place] [address] [place] Lactic acid, venous, whole blood (08/01/2018 3:35 AM STUDY HALL SUPERVISOR)Only the most recent of4 resultswithin the time period is included. Lactate, Venous 1.3 0.5 - 2.2 mmol/L [facility] Specimen Blood - Central Venous Line Performing Organization Address [facility] Phone Number [facility] [address] [place] [address] [phone] [place] ECG 12 lead (08/01/2018 12:41 AM STUDY HALL SUPERVISOR)Only the most recent of2 resultswithin the time period is included. Narrative Performed At Ventricular Rate 89 BPM GE MUSE Atrial Rate 89 BPM P-R Interval 162 ms QRS Duration 124 ms Q-T Interval 394 ms QTC Calculation(Bazett) 479 ms P Bent 59 degrees R Bent -45 degrees T Bent 54 degrees Normal sinus rhythm Left anterior fascicular block Abnormal ECG When compared with ECG of 28-SEP-1995 12:05, ST no longer depressed in Anterolateral leads Confirmed by MD Arvizu Roberto ([id number]) on 08/07/2018 1:14:48 PM Procedure Note Interface, External Ris In - 08/07/2018 1:14 PM STUDY HALL SUPERVISOR Ventricular Rate 89 BPM Atrial Rate 89 BPM P-R Interval 162 ms QRS Duration 124 ms Q-T Interval 394 ms QTC Calculation(Bazett) 479 ms P Bent 59 degrees R Bent -45 degrees T Bent 54 degrees Normal sinus rhythm Left anterior fascicular block Abnormal ECG When compared with ECG of 28-SEP-1995 12:05, ST no longer depressed in Anterolateral leads Confirmed by MD Arvizu Roberto ([id number]) on 08/07/2018 1:14:48 PM Performing Organization Address City/State/Zipcode Phone Number [employer] Troponin I (08/01/2018 12:30 AM STUDY HALL SUPERVISOR)Only the most recent of2 resultswithin the time period is included. Troponin I 0.01 0.00 - 0.03 ng/mL [facility] Specimen Blood Narrative Performed At Troponin I (TnI) levels must be interpreted [facility] in the context of the [...] disease, and persistent tachyarrhythmia. Performing Organization Address City/[facility]/Zipcode Phone Number [address] [address] [phone] [place] Lactic acid, arterial, whole blood (07/31/2018 9:39 PM STUDY HALL SUPERVISOR)Only the most recent of6 resultswithin the time period is included. Lactate, Art 1.4 0.5 - 2.2 mmol/L [facility] Specimen Blood, Arterial Performing Organization Address City/[facility]/Zipcode Phone Number [address] [address] [place] ECHOCARDIOGRAM REPORT - SCAN (07/31/2018 9:20 PM STUDY HALL SUPERVISOR) Narrative Performed At TRANSFUSION SERVICE REPORT - SCAN (07/31/2018 6:01 PM STUDY HALL SUPERVISOR) Narrative Performed At LIVER-KIDNEY MICROSOME AB (07/31/2018 5:19 PM STUDY HALL SUPERVISOR) LKM-1 Antibody (IgG) <20.0 See Note: U [...] infection. Specimen Blood Narrative Performed At Performing [employer] [facility] [place] [address] [place] [address] Sal Stratton MD, PhD, TRINIDAD Performing Organization Address [facility] [place] [address] INCORPORATED [address] [facility] Actin (Smooth Muscle) Antibody, IgG (07/31/2018 5:19 PM STUDY HALL SUPERVISOR) Anti-Smooth Muscle Ab 25 (H) See Note: U [facility] Comment: INCORPORATED Reference Range: <20 NEGATIVE [...] Specimen Blood Narrative Performed At Performing Lab [facility] [address] [place] [address] Sal Stratton MD, PhD, TRINIDAD Performing Organization Address [facility] [place] [address] INCORPORATED [address] [facility] Kephq-[id number]-ozaxocqizjw (07/31/2018 5:19 PM STUDY HALL SUPERVISOR) A-1 Antitrypsin 258.30 (H) 90.00 - 200.00 mg/dL [facility] Specimen Blood Performing Organization Address [facility] Phone Number [facility] [address] [place] [address] [phone] [place] Carbohydrate antigen 19-9 (CA 19-9) (07/31/2018 5:19 PM STUDY HALL SUPERVISOR) CA 19-9 21 <34 U/mL [facility] Comment: This test was performed using the Siemens ([employer]) Chemiluminescent method. Values obtained from different assay methods cannot be used interchangeably. CA19-9 levels, regardless of value, should not be interpreted as absolute evidence of the presence or absence of disease. Specimen Blood Narrative Performed At Performing [employer] [place] [address] [place] [address] Sal Stratton MD, PhD, TRINIDAD Performing Organization Address City/[facility] Phone Number [facility] [place] [address] INCORPORATED [address] [facility] JUAN DIEGO Titer & Pattern (07/31/2018 5:19 PM STUDY HALL SUPERVISOR) [place]UAN [place]IEGO Titer 1:160 [facility] JUAN DIEGO Pattern Speckled [facility] Specimen Blood Performing Organization Address City/[facility]/Zipcode Phone Number [facility] [address] [place] [address] [phone] CENTER Ceruloplasmin (07/31/2018 5:19 PM STUDY HALL SUPERVISOR) Ceruloplasmin 22 18 - 36 mg/dL [facility] Comment: Adults:Males: 18-36 mg/dL Females: 18-53 mg/dL Pediatrics:Males (mg/dL)Females (mg/dL) 0-30 Days 8-25 3-28 31 Days-11 Month 15-4815-43 1-3 [id number] 4-6 [id number] 7-9 [id number] 10-12 [id number] 13-15 [id number] 16-18 [id number] The pediatric ranges are derived from the following criteria: Zoe SJ, Linette JM, Adelaide J et al Pediatric reference ranges for Jpkg-2-Nbnifhrwgzgaf and ceruloplasmin. Clin. Chem 1997; 43:S1999 Pediatric Reference Ranges, 2nd., [place] Zoeet al. editors. [employer], [place], [place] 1997. Specimen Blood Narrative Performed At Performing Lab [facility] *SPL [facility] [employer] [employer] [place], [address] [place] [phone] Aniceto Gibson MD, PhD Performing Organization Address City/[facility]/Zipcode Phone Number [place] [address] INCORPORATED [address] [facility] Hepatitis C genotype (07/31/2018 5:19 PM STUDY HALL SUPERVISOR) HCV Genotype, LiPA 3 [facility] Comment: INCORPORATED The method used in this test is RT-PCR and reverse hybridization (Line Probe) of the 5' UTR and core region of the HCV genome. The analytical performance characteristics of this assay have been determined by [facility]. The modifications have not been cleared or approved by the FDA. This assay has been validated pursuant to the CLIA regulations and is used for clinical purposes. For additional information, please refer to http://education.[place] /faq/HCVGenotyping (This link id being provided for informational/ educational purposes only.) Specimen Blood Narrative Performed At Performing Lab [facility] *QDID [facility] [address] [place] [phone] Chata Miller MD Performing Organization Address City/[facility] Phone Number [facility] [address] [place] [address] Hepatitis C PCR, Quantitative (07/31/2018 5:19 PM STUDY HALL SUPERVISOR) HCV PCR, Quantitative 7,430,000 (H) <15 IU/mL [facility] Specimen Blood Narrative Performed At This test uses a Real-Time Polymerase Chain [facility] Reaction (RT-PCR) methodology and was performed using JOY Ampliprep/JOY TaqMan HCV test kit version 2.0 ([employer]). Reportable range for this assay is 15 - 100,000,000 IU per mL (1.18 - 8.00 Log IU/mL). Performing Organization Address City/[facility]/Zipcode Phone Number [address] [address] CENTER Anti-Nuclear Antibody (JUAN DIEGO) (07/31/2018 5:19 PM STUDY HALL SUPERVISOR) JUAN DIEGO Positive (A) Negative [facility] Specimen Blood Narrative Performed At Test performed by IFA method. [facility] Performing Organization Address City/[facility]/Zipcode Phone Number [facility] [address] [place] [address] CENTER US abdominal with doppler (07/31/2018 4:37 PM STUDY HALL SUPERVISOR) Narrative Performed At FINAL REPORT [facility] Complete Abdominal Ultrasound History: Cirrhosis Comparison: none [...] MD Report Verified Date/Time:07/31/2018 17:05:57 Reading Location: [address] Reading Room Procedure Note Interface, External Ris In - 07/31/2018 5:08 PM STUDY HALL SUPERVISOR FINAL REPORT Complete Abdominal Ultrasound History: Cirrhosis [...] Report Verified Date/Time: 07/31/2018 17:05:57 Reading Location: [address] Ortho Consult Reading Room Performing Organization Address City/State/Zipcode Phone Number [facility] Hepatitis A antibody, IgG (07/31/2018 4:06 PM STUDY HALL SUPERVISOR) Hep A IgG Nonreactive Nonreactive [facility] [facility] Specimen Blood Performing Organization Address City/[facility]/Zipcode Phone Number [address] [address] [phone] CENTER Anti-Mitochondrial Ab, reflex to titer (07/31/2018 4:06 PM STUDY HALL SUPERVISOR) Scan Result [facility] Specimen Blood Narrative Performed At Performing Organization Address City/[facility]/Zipcode Phone Number [place] [address] [facility] [address] [facility] Iron, TIBC, % sat. (without ferritin) (07/31/2018 4:06 PM STUDY HALL SUPERVISOR) Iron 10.0 (L) 40.0 - 160.0 ug/dL [facility] TIBC 83 (L) 250 - 450 ug/dL [facility] Iron % Saturation 12 (L) 20 - 55 % [facility] Specimen Blood Performing Organization Address [facility] Phone Number [address] [address] [place] Alpha fetoprotein (AFP), tumor marker (07/31/2018 4:06 PM STUDY HALL SUPERVISOR) Alpha-Fetoprotein 8,541.3 (H) <10.0 ng/mL [facility] Specimen Blood Performing Organization Address [facility] Phone Number [address] [address] [phone] [place] Hepatitis B core antibody, total (07/31/2018 4:06 PM STUDY HALL SUPERVISOR) Hep B Core Total Ab REACTIVE (A) Nonreactive [facility] Specimen Blood Performing Organization Address [facility] Phone Number [address] [address] [place] Hepatitis B surface antibody (07/31/2018 4:06 PM STUDY HALL SUPERVISOR) Hep B S Ab <8.0 <8.0 mIU/mL [facility] Specimen Blood Performing Organization Address [facility] Phone Number [address] [address] [place] Hepatitis B surface antigen (07/31/2018 4:06 PM STUDY HALL SUPERVISOR) hepatitis B Surface Ag NON-REACTIVE Nonreactive [facility] Specimen Blood Performing Organization Address [facility] Phone Number [address] [address] [place] Blood culture (07/31/2018 4:06 PM STUDY HALL SUPERVISOR)Only the most recent of4 resultswithin the time period is included. Result No growth in 5 days [facility] Specimen Blood - Line, Venous Performing Organization Address [facility] Phone Number [address] [address] [place] Carcinoembryonic Antigen (CEA) (07/31/2018 4:06 PM STUDY HALL SUPERVISOR) CEA, SERUM 1.9 0.0 - 5.0 ng/mL [facility] Specimen Blood Performing Organization Address [facility] Phone Number [address] [address] [phone] CENTER Ferritin (07/31/2018 4:05 PM STUDY HALL SUPERVISOR) Ferritin 485 (H) 5 - 275 ng/mL [facility] Specimen Blood Performing Organization Address [facility] Phone Number [address] [address] [phone] [place] Vancomycin level, trough (07/31/2018 4:05 PM STUDY HALL SUPERVISOR) Vancomycin Tr 40.6 (HH) 10.0 - 20.0 ug/mL [facility] Specimen Blood Performing Organization Address [facility] Phone Number [address] [address] [place] urine ethyl glucuronide and ethyl sulfate (07/31/2018 3:51 PM STUDY HALL SUPERVISOR) Scan Result [facility] Specimen Urine Narrative Performed At Performing Organization Address [facility] Phone Number [facility] [address] [place], [place] Urea Nitrogen, random urine (07/31/2018 12:40 PM STUDY HALL SUPERVISOR) Urea Nitrogen, Ur 464 mg/dL [facility] Specimen Urine - Urine, Barrientos Narrative Performed At Reference Range: No Normals [facility] Performing Organization Address [facility]/Zipcode Phone Number [address] [address] [place] Sodium, random urine (07/31/2018 12:40 PM STUDY HALL SUPERVISOR)Only the most recent of2 resultswithin the time period is included. Sodium Urine <20 meq/L [facility] Specimen Urine - Urine, Barrientos Narrative Performed At Reference Range: No Normals [facility] Performing Organization Address [facility] Phone Number [address] [address] [place] Osmolality, urine (07/31/2018 12:40 PM STUDY HALL SUPERVISOR)Only the most recent of2 resultswithin the time period is included. Osmolality, Ur 379 40-1,400 mOsm/kg [facility] Specimen Urine - Urine, Barrientos Performing Organization Address [facility] Phone Number [address] [address] [place] Osmolality, serum (07/31/2018 10:01 AM STUDY HALL SUPERVISOR) Osmolality Serum 301 (H) 275 - 295 mOsm/kg [facility] Specimen Blood Performing Organization Address [facility] Phone Number [address] [address] [phone] [place] Hepatic function panel (07/31/2018 10:01 AM STUDY HALL SUPERVISOR) Protein, Total 5.1 (L) 6.0 - 8.3 gm/dL [facility] Albumin 2.5 (L) 3.5 - 5.0 g/dL [facility] Total Bilirubin 3.2 (H) 0.2 - 1.2 mg/dL [facility] Bilirubin, Direct 2.5 (H) 0.1 - 0.5 mg/dL [facility] Alkaline Phosphatase 72 40 - 150 U/L [facility] AST 87 (H) 5 - 34 U/L [facility] ALT 51 6 - 55 U/L [facility] Specimen Blood Narrative Performed At Specimen slightly icteric [facility] Performing Organization Address [facility] Phone Number [address] [address] [phone] CENTER Blood gas, arterial (07/31/2018 6:54 AM STUDY HALL SUPERVISOR)Only the most recent of5 resultswithin the time period is included. pH, Arterial 7.35 7.35 - 7.45 [facility] pCO2, Arterial 36 35 - 45 mmHg [facility] pO2, Arterial 140 (H) 80 - 90 mmHg [facility] O2 Sat, Arterial 98.7 (H) 96.0 - 97.0 % [facility] HCO3, Arterial 19 (L) 21 - 29 mmol/L [facility] Base Excess, Arterial -5.6 (L) -2.0 - 3.0 mmol/L [facility] Patient Temperature 37.0 C [facility] FIO2 21.0 % [facility] Specimen Blood, Arterial Performing Organization Address City/State/Zipcode Phone Number [address] [address] [phone] [place] Albumin (07/31/2018 3:46 AM STUDY HALL SUPERVISOR) Albumin 2.6 (L) 3.5 - 5.0 g/dL [facility] Specimen Blood Performing Organization Address City/[facility]/Zipcode Phone Number [address] [address] [place] 2D Echo W/Doppler(CW/PW/Color) (07/30/2018 3:56 PM STUDY HALL SUPERVISOR) Ejection Fraction [facility] Narrative Performed At Transthoracic Echocardiography Report (TTE) [facility] Demographics Patient NamePERRY, MARKDate of Study07/30/2018 Gender Male Visit [id number] Race Unknown [id number] Number Date of 1960 Referring PhysicianYanira Guajardo NP Age 58 year(s) SonographerBud Martin Interpreting Ck Smith MD Physician Krystle Marx Procedure Type of Study TTE procedure:2DECHO [...] External Ris In - 07/31/2018 3:19 PM STUDY HALL SUPERVISOR Transthoracic Echocardiography Report (TTE) Demographics Patient Name DENISHA GAN Date of Study 07/30/2018 Gender Male Visit Number [id number] Race Unknown Room Number 7A09 Number Date of 1960 Referring Physician Yanira Guajardo NP Age 58 year(s) [employer] Reverser Bud Martin Interpreting Ck Smith MD Physician [...] City/State/Zipcode Phone Number [facility] CBC (Hemogram only) (07/30/2018 2:36 PM STUDY HALL SUPERVISOR) WBC 15.2 (H) 3.5 - 10.5 K/L [facility] RBC 4.91 4.63 - 6.08 M/L [facility] Hemoglobin 15.6 13.7 - 17.5 GM/DL [facility] Hematocrit 45.6 40.1 - 51.0 % [facility] MCV 92.9 (H) 79.0 - 92.2 fL [facility] MCH 31.8 25.7 - 32.2 pg [facility] MCHC 34.2 32.3 - 36.5 GM/DL [facility] RDW 15.0 (H) 11.6 - 14.4 % [facility] Platelets 119 (L) 150 - 450 K/CU MM [facility] MPV 11.0 9.4 - 12.4 fL [facility] nRBC 0 0 - 0 /100 WBC [facility] Specimen Blood Performing Organization Address City/State/Zipcode Phone Number [facility] [address] [place] [address] CENTER Tissue Exam (07/30/2018 11:01 AM STUDY HALL SUPERVISOR) Case Report Surgical Pathology Report Case: [id number] [facility] Authorizing Provider:Anjel Moya MDCollected: 07/30/2018 [facility] Ordering Location: [address] [place]: 08/01/2018 0842 Pathologist: Bel Cid MD Specimens: A) - Small Bowel, NOS B) - Biopsy, Liver, Liver Mass DIAGNOSIS THIS FINAL REPORT IS ISSUED TO REPORT THE RESULT OF IMMUNOHISTOCHEMICAL STAIN ARGINASE ON SPECIMEN B AND CORRECT TYPOGRAFICAL ERROR IN THE FINAL DIAGNOSIS OF SPECIMEN A: [facility] A. SMALL BOWEL, RESECTION - [...] see comment Signing Pathologist Direct Phone Line: [phone] COMMENT The tumor cells are positive for Hepar-1 and CK19. CK7 is negative. The morphology and immunohistochemical profile is consistent with a hepatocellular carcinoma (HCC). Presence of poor differentiation ( [facility] based on morphology) and CK 19 immunoexpression is associated with poor prognosis (see ref.). Arginase immunostain is positive, confirming the diagnosis of hepatocellular carcinoma. [facility] Reference: Pb Waite et al. Cytokeratin 19 expression in hepatocellular carcinoma predicts early postoperative recurrence. Cancer Sci. 2003 Mar;94(10):851-857. Intradepartmental consultation on specimen B: Dr. Krystin Connelly CPT Code(s) 00409i1; 75113; 40758 x 3; 78145 [facility] CLINICAL HISTORY Perforated bowel [facility] SPECIMEN SOURCE A. Small bowel. B. Liver biopsy [facility] GROSS DESCRIPTION Specimen is received in two parts labeled with the patient' s information and accession number. [facility] Specimen A: Received in formalin [...] 0.2 to 0.6 cm in greatest dimension. Cigar Head Perforator sections are submitted as follows: A1, arbitrarily designated margin 1; A2, arbitrarily designated margin 2; A3, customer support representative mesenteric margin, en face; A4-A5, customer support representative full-thic kness perforation; A6, A7, customer support representative purulent areas proximal to perforation; A8-A9, customer support representative bowel wall; A10, soft tissue is area of perforation; A11, three candidate lymph nodes, whole. Specimen B: Received in formalin labeled "liver biopsy" consists of two cylindrical cores of culver-white soft tissue measuring 0.1 cm in diameter and 1.1 and 1.2 cm in length, respectively. The specimen i s submitted in its entirety in cassette B1. JY/ew MICROSCOPIC DESCRIPTION A-B. Performed. [facility] B. Section shows liver parenchyma [...] the use of immunohistochemistry or special stains. [facility] Hepar-1; CK7; CK19; Arginase ;[facility] Immun[facility] technical testing was performed at [facility], Pathology Laboratory where it was developed and [...] - Small Bowel, NOS Performing Organization Address City/[facility]/Zipcode Phone Number [address] [address] [place] Potassium-Stat Lab (07/30/2018 10:22 AM STUDY HALL SUPERVISOR) Potassium 3.3 (L) 3.6 - 5.5 meq/L [facility] Specimen Blood, Arterial Performing Organization Address City/[facility]/Zipcode Phone Number [address] [address] [phone] [place] Sodium Na-Stat Lab (07/30/2018 10:22 AM STUDY HALL SUPERVISOR) Sodium 127 (L) 135 - 148 meq/L [facility] Specimen Blood, Arterial Performing Organization Address City/[facility]/Zipcode Phone Number [address] [address] [place] Glucose-Stat Lab (07/30/2018 10:22 AM STUDY HALL SUPERVISOR) Glucose 93 70 - 110 mg/dL [facility] Specimen Blood, Arterial Performing Organization Address [facility] Phone Number [address] [address] [place] HGB/HCT (H&H)-Stat Lab (07/30/2018 10:22 AM STUDY HALL SUPERVISOR) Hemoglobin 14.6 13.0 - 16.8 g/dL [facility] Hematocrit 43.0 40.0 - 50.0 % [facility] Specimen Blood, Arterial Performing Organization Address City/[facility] Phone Number [address] [address] [phone] [place] Anaerobic culture (07/30/2018 9:40 AM STUDY HALL SUPERVISOR) Result No anaerobes isolated [facility] Specimen Body Fluid - Peritoneal Fluid Performing Organization Address [facility] Phone Number [address] [address] [place] Surgically obtained culture + gram stain (07/30/2018 9:40 AM STUDY HALL SUPERVISOR) Result ESCHERICHIA COLI (A) [facility] Gram Stain Result <1+ White blood cells seen [facility] Gram Stain Result No organisms seen [facility] Specimen Body Fluid - Peritoneal [...] + Sulfamethoxazole <=20: Susceptible Performing Organization Address [facility] Phone Number [address] [phone] CENTER Prepare Leuko-Red RBC (07/30/2018 7:53 AM STUDY HALL SUPERVISOR) CROSSMATCH COMPATIBLE SAFETRACE TX Unit ABO A Pos SAFETRACE TX UNIT NUMBER [id number] SAFETRACE TX Status READY SAFETRACE TX Blood Bank Product RED BLOOD CELLS SAFETRACE TX PRODUCT CODE [id number] SAFETRACE TX CROSSMATCH COMPATIBLE SAFETRACE TX Unit ABO A Pos SAFETRACE TX UNIT NUMBER [id number] SAFETRACE TX Status READY SAFETRACE TX Blood Bank Product RED BLOOD CELLS SAFETRACE TX PRODUCT CODE [id number] SAFETRACE TX Specimen Other Performing Organization Address [facility] Phone Number SAFETRACE TX ABORH, manual (07/30/2018 6:09 AM STUDY HALL SUPERVISOR)Only the most recent of2 resultswithin the time period is included. ABO Grouping A [facility] Rh Factor POS [facility] Specimen Blood Performing Organization Address [facility] Phone Number [address] [address] [phone] Blood gas, venous (07/30/2018 6:09 AM STUDY HALL SUPERVISOR) pH, Zachary 7.37 7.32 - 7.42 [facility] pCO2, Zachary 33 (L) 41 - 51 mmHg [facility] pO2, Zachary 62 (H) 25 - 40 mmHg [facility] O2 Sat, Zachary 92.6 (H) 40.0 - 70.0 % [facility] HCO3, Zachary 19 (L) 21 - 29 mmol/L [facility] Base Excess, Zachary -5.5 (L) -2.0 - 3.0 mmol/L [facility] Patient Temperature 36.0 C [facility] FIO2 100.0 % [facility] Specimen Blood Performing Organization Address City/State/Zipcode Phone Number [facility] [address] [place] [address] CENTER XR abdomen / KUB 1 view (07/30/2018 5:29 AM STUDY HALL SUPERVISOR) Narrative Performed At FINAL REPORT [facility] CLINICAL HISTORY: abdominal distension/ NGT placement TECHNIQUE: [...] MD Report Verified Date/Time:07/30/2018 06:03:17 Reading Location: [address] Transitional Reading Room Procedure Note Interface, External Ris In - 07/30/2018 6:05 AM STUDY HALL SUPERVISOR FINAL REPORT CLINICAL HISTORY: abdominal distension/ NGT [...] Report Verified Date/Time: 07/30/2018 06:03:17 Reading Location: [facility] C013 Transitional Reading Room Performing Organization Address City/State/Zipcode Phone Number [facility] Procalcitonin (07/30/2018 4:56 AM STUDY HALL SUPERVISOR) Procalcitonin 9.52 (H) <0.05 ng/mL [facility] Specimen Blood Narrative Performed At SEPSIS RISK (ng/mL) [facility] Low:0.05-0.50 Intermediate: 0.51-2.00 High: >=2.01 Performing Organization Address City/State/Zipcode Phone Number [facility] [address] [place] [address] [phone] CENTER Antibody screen (07/30/2018 4:56 AM STUDY HALL SUPERVISOR) Ab Scrn NEGATIVEComment: Tube by PEG [facility] Specimen Blood Performing Organization Address [facility] Phone Number [facility] [address] [place] [address] Blood Culture Panel([employer]) (07/30/2018 4:39 AM STUDY HALL SUPERVISOR)Only the most recent of2 resultswithin the time period is included. LISTERIA MONOCYTOGENES Not detected Not detected [facility] STAPHYLOCOCCUS Not detected Not detected [facility] STAPHYLOCOCCUS AUREUS Not detected Not detected [facility] Streptococcus Not detected Not detected [facility] STREPTOCOCCUS AGALACTIAE (GROUP B) Not detected Not detected [facility] STREPTOCOCCUS PNEUMONIAE Not detected Not detected [facility] Streptococcus pyogenes (Group A) Not detected Not detected [facility] ACINETOBACTER BAUMANNII Not detected Not detected [facility] HAEMOPHILUS INFLUENZAE Not detected Not detected [facility] NEISSERIA MENINGITIDIS Not detected Not detected [facility] ENTEROBACTERIACEAE Not detected Not detected [facility] ENTEROBACTER CLOACOE COMPLEX Not detected Not detected [facility] KLEBSIELLA OXYTOCA Not detected Not detected [facility] KLEBSIELLA PNEUMONIAE Not detected Not detected [facility] PROTEUS Not detected Not detected [facility] SERRATIA MARCESCENS Not detected Not detected [facility] NIKITA ALBICANS Not detected Not detected [facility] NIKITA GLABRATA Not detected Not detected [facility] NIKITA JUSTIN Not detected Not detected [facility] NIKITA PARAPSILOSIS Not detected Not detected [facility] NIKITA TROPICALIS Not detected Not detected [facility] ESCHERICHIA COLI Not detected Not detected [facility] METHICILLIN-RESISTANCE GENE Not detected [facility] VANCOMYCIN-RESISTANCE GENE Not detected [facility] CARBAPENEM-RESISTANCE GENE Not detected [facility] ENTEROCOCCUS Not detected Not detected [facility] PSEUDOMONAS AERUGINOSA Not detected Not detected [facility] Specimen Blood - Arm, Left Narrative Performed At Other bacteria and resistance markers not [facility] targeted by this PCR panel cannot be excluded; therefore clinical correlation and follow up of serology, culture results, and other molecular studies is required. The results are not intended to be used as the sole means for clinical diagnosis or patient management decisions. This sample was tested at the [facility] using the [employer] Blood Culture ID Panel. It is FDA cleared and has been verified and approved by the [facility] for clinical use. This laboratory is CLIA-certified and College of [employer] Pathologists (CAP)-accredited to perform high complexity testing. Performing Organization Address City/[facility]/Zipcode Phone Number [address] [address] C[place] Lipase (07/30/2018 4:29 AM STUDY HALL SUPERVISOR) Lipase 86 (H) 8 - 78 U/L [facility] Specimen Blood Narrative Performed At Specimen slightly icteric [facility] Performing Organization Address [facility]/Zipcode Phone Number [address] [address] C[place] Amylase (07/30/2018 4:29 AM STUDY HALL SUPERVISOR) Amylase 59Comment: Specimen slightly 25 - 125 U/L [facility] hemolyzed [facility] Specimen Blood Narrative Performed At Specimen slightly icteric [facility] Performing Organization Address City/State/Zipcode Phone Number [facility] [address] [place] [address] CENTER after 08/15/2017 Insurance Payer Benefit Plan / Subscriber ID Type Phone Address Group MEDICAID - MEDICAID [place] [facility] [employer] xxxxxxxxx Medicaid Contracted MGD CARE PLAN Advance Directives For more information, please contact:[address] [phone] Code Status Date Activated Date Inactivated Comments Full Code 07/30/2018 4:23 AM 08/11/2018 8:20 PM This code status was determined by: Patient
--- OUTSIDE RECORDS SUMMARY | 2018-08-16 10:42 | XMS REPORT ---
:1960 [facility] Address [address] [place] [address] [address] [place] [address] Care Team Providers Name Role Phone LENIN COKER Unavailable Unavailable Problems This patient has no known problems. Allergies, Adverse Reactions, Alerts This patient has no known allergies or adverse reactions. Medications This patient has no known medications. Results Test Description Test Time Test Comments Text Results Atomic Results Result Comments ANTI-MITOCHONDRIAL AB, REFLEX TO TITER 2018-08-16 08:52:00 Test Item Value Reference Range Comments SCAN RESULT (test orzu=[id number]) BODY FLUID CULTURE + GRAM [id number] 09:23:00 Test Item Value Reference Range Comments CULTURE (BEAKER) (test adtd=8121) No growth GRAM STAIN RESULT (BEAKER) (test <1+ WBCs mgxs=7588) GRAM STAIN RESULT (BEAKER) (test No organisms seen efpf=79183) POCT-GLUCOSE [id number] 17:45:00 Test Item Value Reference Range Comments POC-GLUCOSE METER (BEAKER) 163 mg/dL 70-110 TESTED AT [facility] [address] [facility] (test urpn=7986) [facility] [address] POCT-GLUCOSE [id number] 09:37:00 Test Item Value Reference Range Comments POC-GLUCOSE METER (BEAKER) 171 mg/dL 70-110 TESTED AT [facility] [address] [facility] (test snsh=1590) [facility] [address] CALCIUM, [id number] 06:36:00 Test Item Value Reference Range Comments CALCIUM IONIZED (BEAKER) (test wydz=290) 0.97 mmol/L 1.12-1.27 PH, BLOOD (BEAKER) (test kbda=3327) 7.40 COMPREHENSIVE METABOLIC [id number] 05:58:00 Test Item Value Reference Range Comments TOTAL PROTEIN (BEAKER) 5.9 gm/dL 6.0-8.3 (test kpdp=273) ALBUMIN (BEAKER) (test 2.0 g/dL 3.5-5.0 qgcg=6819) ALKALINE PHOSPHATASE 153 U/L 40-150 (BEAKER) (test vhxc=676) BILIRUBIN TOTAL (BEAKER) 1.4 mg/dL 0.2-1.2 (test ghbv=026) SODIUM (BEAKER) (test 135 meq/L 136-145 hjec=317) POTASSIUM (BEAKER) (test 3.8 meq/L 3.5-5.1 vcrz=149) CHLORIDE (BEAKER) (test 107 meq/L 98-107 btee=808) CO2 (BEAKER) (test 24 meq/L 22-29 xkia=765) BLOOD UREA NITROGEN 27 mg/dL 7-21 (BEAKER) (test awkr=690) CREATININE (BEAKER) (test 1.15 mg/dL 0.57-1.25 eexn=318) GLUCOSE RANDOM (BEAKER) 107 mg/dL 70-105 (test sdpx=672) CALCIUM (BEAKER) (test 7.8 mg/dL 8.4-10.2 pxev=324) AST (SGOT) (BEAKER) (test 66 U/L 5-34 brsa=530) ALT (SGPT) (BEAKER) (test 29 U/L 6-55 aknb=436) EGFR (BEAKER) (test 66 mL/min/1.73 sq m ESTIMATED GFR IS NOT cihi=9426) ACCURATE CREATININE CLEARANCE IN PREDICTING GLOMERULAR FILTRATION RATE. ESTIMATED GFR IS NOT APPLICABLE FOR DIALYSIS PATIENTS. [id number] 05:57:00 Test Item Value Reference Range Comments PHOSPHORUS (BEAKER) (test brln=342) 3.1 mg/dL 2.3-4.7 [id number] 05:57:00 Test Item Value Reference Range Comments MAGNESIUM (BEAKER) (test daqk=858) 1.7 mg/dL 1.6-2.6 BILIRUBIN, [id number] 05:57:00 Test Item Value Reference Range Comments BILIRUBIN DIRECT (BEAKER) (test iypb=849) 1.1 mg/dL 0.1-0.5 [id number] 05:43:00 Test Item Value Reference Range Comments PROTIME (BEAKER) (test mkxf=929) 16.4 seconds 11.7-14.7 INR (BEAKER) (test cuht=249) 1.3 <=5.9 PARTIAL THROMBOPLASTIN TIME (BEAKER) (test 37.4 seconds 22.5-36.0 vped=054) RECOMMENDED COUMADIN/WARFARIN INR THERAPY RANGESSTANDARD DOSE: 2.0 - 3.0 Includes: PROPHYLAXIS forvenous thrombosis, systemic embolization; TREATMENT for venous thrombosis and/or pulmonary embolus.HIGH RISK: Target INR is 2.5-3.5 for patients with mechanical heart valves.CBC W/PLT COUNT & AUTO [id number] 05:27:00 Test Item Value Reference Range Comments WHITE BLOOD CELL COUNT (BEAKER) (test vsuu=549) 6.4 K/ L 3.5-10.5 RED BLOOD CELL COUNT (BEAKER) (test jpwx=519) 3.34 M/ L 4.63-6.08 HEMOGLOBIN (BEAKER) (test ebgn=958) 10.6 GM/DL 13.7-17.5 HEMATOCRIT (BEAKER) (test zinw=078) 31.9 % 40.1-51.0 MEAN CORPUSCULAR VOLUME (BEAKER) (test pocy=132) 95.5 fL 79.0-92.2 MEAN CORPUSCULAR HEMOGLOBIN (BEAKER) (test 31.7 pg 25.7-32.2 tstk=838) MEAN CORPUSCULAR HEMOGLOBIN CONC (BEAKER) (test 33.2 GM/DL 32.3-36.5 vezu=357) RED CELL DISTRIBUTION WIDTH (BEAKER) (test 18.6 % 11.6-14.4 ugjw=419) PLATELET COUNT (BEAKER) (test qbqf=637) 104 K/CU MM 150-450 MEAN PLATELET VOLUME (BEAKER) (test lnlf=380) 11.6 fL 9.4-12.4 NUCLEATED RED BLOOD CELLS (BEAKER) (test 0 /100 WBC 0-0 vpcu=294) NEUTROPHILS RELATIVE PERCENT (BEAKER) (test 78 % bcvx=949) LYMPHOCYTES RELATIVE PERCENT (BEAKER) (test 10 % wyvl=279) MONOCYTES RELATIVE PERCENT (BEAKER) (test 10 % yyhz=084) EOSINOPHILS RELATIVE PERCENT (BEAKER) (test 1 % gpge=143) BASOPHILS RELATIVE PERCENT (BEAKER) (test 0 % ejam=827) NEUTROPHILS ABSOLUTE COUNT (BEAKER) (test 5.01 K/ L 1.78-5.38 ngom=203) LYMPHOCYTES ABSOLUTE COUNT (BEAKER) (test 0.64 K/ L 1.32-3.57 lefw=295) MONOCYTES ABSOLUTE COUNT (BEAKER) (test 0.61 K/ L 0.30-0.82 iecg=115) EOSINOPHILS ABSOLUTE COUNT (BEAKER) (test 0.08 K/ L 0.04-0.54 bidu=497) BASOPHILS ABSOLUTE COUNT (BEAKER) (test 0.02 K/ L 0.01-0.08 onrs=619) IMMATURE GRANULOCYTES-RELATIVE PERCENT (BEAKER) 1 % 0-1 (test ozot=3672) POCT-GLUCOSE [id number] 22:04:00 Test Item Value Reference Range Comments POC-GLUCOSE METER (BEAKER) 161 mg/dL 70-110 TESTED AT [address] (test pqzh=6189) [place] [id number] BODY FLUID CELL COUNT WITH [id number] 19:27:00 Test Item Value Reference Range Comments APPEARANCE FLUID (BEAKER) (test vpla=697) Cloudy Clear COLOR FLUID (BEAKER) (test pxha=748) [place] Colorless, Straw RBC FLUID (BEAKER) (test inio=904) [address] /cu mm <=1 ADJUSTED WBC FLUID (BEAKER) (test hvil=8338) 240 /cu mm <=5 LINING CELLS (BEAKER) (test ndxj=6469) 0 /cu mm <=1 NEUTROPHILS FLUID (BEAKER) (test dpfw=8120) 22 % LYMPHS FLUID (BEAKER) (test pblt=607) 43 % MONO/MACROPHAGE FLUID (BEAKER) (test ohvz=984) 35 % EOSINOPHILS FLUID (BEAKER) (test iaaa=897) 0 % BASO FLUID (BEAKER) (test hmgq=112) 0 % CONTAINER BODY FLUID (BEAKER) (test qlwm=9966) EDTA Tube POCT-GLUCOSE [id number] 17:03:00 Test Item Value Reference Range Comments POC-GLUCOSE METER (BEAKER) 113 mg/dL 70-110 TESTED AT [address] (test edrk=8299) [facility] [address] U/S, [id number] 16:04:00Reason for exam:->ascitesFINAL REPORT PROCEDURE: Ultrasound-guided paracentesis. INDICATION: 58 -year-old man with ascites. DESCRIPTION: After obtaining informed written consent, ultrasound scan of the abdomen identified ascites in the right lower quadrant. The overlying skin was prepped and draped in the usual, sterile fashion and local 1% lidocaine anesthesia was administered. A 5 Vietnamese catheter was advanced into the peritoneal cavity and 1200 cc of serosanguineous fluid was removed. The catheter was removed without immediate complication. Samples were sent for analysis. IMPRESSION:Uncomplicated ultrasound-guided paracentesis with 1200 cc fluid removed. Signed: Efren Rosas MDReport Verified Date/Time : 08/10/2018 16:04:03 Reading Location: [address] Ultrasound Reading Room POCT- GLUCOSE [id number] 09:25:00 Test Item Value Reference Range Comments POC-GLUCOSE METER (BEAKER) 168 mg/dL 70-110 TESTED AT [address] (test olrb=7612) [facility] [address] COMPREHENSIVE METABOLIC [id number] 06:37:00 Test Item Value Reference Range Comments TOTAL PROTEIN (BEAKER) 6.2 gm/dL 6.0-8.3 (test sbmu=647) ALBUMIN (BEAKER) (test 2.1 g/dL 3.5-5.0 czoz=0962) ALKALINE PHOSPHATASE 134 U/L 40-150 (BEAKER) (test pjfk=802) BILIRUBIN TOTAL (BEAKER) 2.1 mg/dL 0.2-1.2 (test ufny=837) SODIUM (BEAKER) (test 134 meq/L 136-145 knii=884) POTASSIUM (BEAKER) (test 4.1 meq/L 3.5-5.1 uylo=437) CHLORIDE (BEAKER) (test 106 meq/L 98-107 izpe=723) CO2 (BEAKER) (test 23 meq/L 22-29 dioi=039) BLOOD UREA NITROGEN 28 mg/dL 7-21 (BEAKER) (test cxbp=982) CREATININE (BEAKER) (test 1.10 mg/dL 0.57-1.25 otip=612) GLUCOSE RANDOM (BEAKER) 92 mg/dL 70-105 (test vesc=581) CALCIUM (BEAKER) (test 7.8 mg/dL 8.4-10.2 xxea=414) AST (SGOT) (BEAKER) (test 70 U/L 5-34 mdpp=122) ALT (SGPT) (BEAKER) (test 31 U/L 6-55 gbnn=850) EGFR (BEAKER) (test 69 mL/min/1.73 sq m ESTIMATED GFR IS NOT wdab=6040) ACCURATE CREATININE CLEARANCE IN PREDICTING GLOMERULAR FILTRATION RATE. ESTIMATED GFR IS NOT APPLICABLE FOR DIALYSIS PATIENTS. [id number] 06:33:00 Test Item Value Reference Range Comments PHOSPHORUS (BEAKER) (test ckcm=322) 3.4 mg/dL 2.3-4.7 [id number] 06:33:00 Test Item Value Reference Range Comments MAGNESIUM (BEAKER) (test gfst=984) 1.7 mg/dL 1.6-2.6 BILIRUBIN, [id number] 06:33:00 Test Item Value Reference Range Comments BILIRUBIN DIRECT (BEAKER) (test fcgi=331) 1.4 mg/dL 0.1-0.5 [id number] 06:19:00 Test Item Value Reference Range Comments PROTIME (BEAKER) (test jdxz=569) 16.5 seconds 11.7-14.7 INR (BEAKER) (test kbir=766) 1.3 <=5.9 PARTIAL THROMBOPLASTIN TIME (BEAKER) (test 36.9 seconds 22.5-36.0 oztj=332) RECOMMENDED COUMADIN/WARFARIN INR THERAPY RANGESSTANDARD DOSE: 2.0 - 3.0 Includes: PROPHYLAXIS forvenous thrombosis, systemic embolization; TREATMENT for venous thrombosis and/or pulmonary embolus.HIGH RISK: Target INR is 2.5-3.5 for patients with mechanical heart valves.CBC W/PLT COUNT & AUTO [id number] 06:10:00 Test Item Value Reference Range Comments WHITE BLOOD CELL COUNT (BEAKER) (test hkue=943) 8.1 K/ L 3.5-10.5 RED BLOOD CELL COUNT (BEAKER) (test fgsd=117) 3.70 M/ L 4.63-6.08 HEMOGLOBIN (BEAKER) (test rqku=931) 11.7 GM/DL 13.7-17.5 HEMATOCRIT (BEAKER) (test ueom=020) 34.9 % 40.1-51.0 MEAN CORPUSCULAR VOLUME (BEAKER) (test qlpu=544) 94.3 fL 79.0-92.2 MEAN CORPUSCULAR HEMOGLOBIN (BEAKER) (test 31.6 pg 25.7-32.2 lebd=142) MEAN CORPUSCULAR HEMOGLOBIN CONC (BEAKER) (test 33.5 GM/DL 32.3-36.5 dova=094) RED CELL DISTRIBUTION WIDTH (BEAKER) (test 18.3 % 11.6-14.4 knwr=221) PLATELET COUNT (BEAKER) (test xaab=816) 99 K/CU MM 150-450 MEAN PLATELET VOLUME (BEAKER) (test leri=482) 11.4 fL 9.4-12.4 NUCLEATED RED BLOOD CELLS (BEAKER) (test 0 /100 WBC 0-0 ztqj=235) NEUTROPHILS RELATIVE PERCENT (BEAKER) (test 81 % soej=463) LYMPHOCYTES RELATIVE PERCENT (BEAKER) (test 10 % jmij=435) MONOCYTES RELATIVE PERCENT (BEAKER) (test 7 % slqh=116) EOSINOPHILS RELATIVE PERCENT (BEAKER) (test 1 % dbwr=728) BASOPHILS RELATIVE PERCENT (BEAKER) (test 0 % tvqm=376) NEUTROPHILS ABSOLUTE COUNT (BEAKER) (test 6.55 K/ L 1.78-5.38 shgc=479) LYMPHOCYTES ABSOLUTE COUNT (BEAKER) (test 0.81 K/ L 1.32-3.57 scvy=166) MONOCYTES ABSOLUTE COUNT (BEAKER) (test exeh=905) 0.60 K/ L 0.30-0.82 EOSINOPHILS ABSOLUTE COUNT (BEAKER) (test 0.05 K/ L 0.04-0.54 gszy=960) BASOPHILS ABSOLUTE COUNT (BEAKER) (test vozs=962) 0.02 K/ L 0.01-0.08 IMMATURE GRANULOCYTES-RELATIVE PERCENT (BEAKER) 1 % 0-1 (test krhf=4802) CALCIUM, [id number] 05:47:00 Test Item Value Reference Range Comments CALCIUM IONIZED (BEAKER) (test kreq=921) 1.04 mmol/L 1.12-1.27 PH, BLOOD (BEAKER) (test aenf=2899) 7.37 POCT-GLUCOSE [id number] 22:28:00 Test Item Value Reference Range Comments POC-GLUCOSE METER (BEAKER) 143 mg/dL 70-110 TESTED AT [facility] [address] [place] [address] (test iwej=2436) [place] [id number] POCT-GLUCOSE [id number] 18:35:00 Test Item Value Reference Range Comments POC-GLUCOSE METER (BEAKER) 137 mg/dL 70-110 TESTED AT [address] (test fbmg=4544) [place] [address] [id number] 18:22:00 Test Item Value Reference Range Comments MAGNESIUM (BEAKER) (test tncu=610) 1.8 mg/dL 1.6-2.6 BONE AND/OR JOINT IMAGING, WHOLE [id number] 16:34:00FINAL REPORT PROCEDURE: BONE SCAN, WHOLE BODY CPT CODE: 09443 INDICATION: HCC PROTOCOL: 31.3 mCi of Tc-99m [...] on August 18, 2018.. Signed: Federico Mathew MDReport Verified Date/Time: 08/09/2018 16:34:55 Reading Location: [address] Reading Room POCT-GLUCOSE [id number] 12:20:00 Test Item Value Reference Range Comments POC-GLUCOSE METER (BEAKER) 121 mg/dL 70-110 TESTED AT [address] (test qvpl=7382) [place] [id number] 12:20:00Medical Cytology Report Case: [id number] Authorizing Provider: Anjel Moya MD Collected: 08/06/2018 1400 Ordering Location: [address] Received: 08/08/2018 0943 Service Pathologist: Nadege Busby MD Specimen: Peritoneal Fluid PERITONEAL FLUID (CYTOSPINS AND CELL BLOCK): - NEGATIVE FOR MALIGNANCY PREDOMINANTLY BLOOD; ACUTE INFLAMMATORY CELLS Signing Pathologist Direct Phone Line: [phone] , [phone], recently diagnosed with hepatocellular carcinoma(see [id number]) PERITONEAL [id number] mls orange; 4 cytospins, cell blockCollected: [id number]: [id number].[facility], Department of Pathology, [address] [place] [address], Tel [facility], Department of Pathology, [address] [place] [address], [facility], Department of Pathology, [address] [place] [address], Tel ZLOOD [id number] 11:41:00 Test Item Value Reference Range Comments CULTURE (BEAKER) From Anaerobic Bottle (test nvwy=3129) Only Eggerthella lenta GRAM STAIN RESULT From anaerobic bottle (BEAKER) (test only: gram positive twwa=5012) rods BODY FLUID CULTURE + GRAM [id number] 08:58:00 Test Item Value Reference Range Comments CULTURE (BEAKER) (test ihid=3726) No growth GRAM STAIN RESULT (BEAKER) (test 2+ WBCs eqbn=7230) GRAM STAIN RESULT (BEAKER) (test No organisms seen bhgd=01177) POCT-GLUCOSE [id number] 08:21:00 Test Item Value Reference Range Comments POC-GLUCOSE METER (BEAKER) 136 mg/dL 70-110 TESTED AT [address] (test frtj=1152) [place] [address] [id number] 04:26:00 Test Item Value Reference Range Comments PHOSPHORUS (BEAKER) (test gmly=893) 3.9 mg/dL 2.3-4.7 [id number] 04:26:00 Test Item Value Reference Range Comments MAGNESIUM (BEAKER) (test yhqd=127) 1.8 mg/dL 1.6-2.6 BILIRUBIN, [id number] 04:26:00 Test Item Value Reference Range Comments BILIRUBIN DIRECT (BEAKER) (test emcc=487) 1.4 mg/dL 0.1-0.5 COMPREHENSIVE METABOLIC [id number] 04:26:00 Test Item Value Reference Range Comments TOTAL PROTEIN (BEAKER) 5.8 gm/dL 6.0-8.3 (test qwbp=429) ALBUMIN (BEAKER) (test 2.1 g/dL 3.5-5.0 uabf=9809) ALKALINE PHOSPHATASE 126 U/L 40-150 (BEAKER) (test kure=555) BILIRUBIN TOTAL (BEAKER) 2.0 mg/dL 0.2-1.2 (test kvfo=070) SODIUM (BEAKER) (test 134 meq/L 136-145 rjgf=720) POTASSIUM (BEAKER) (test 3.8 meq/L 3.5-5.1 iktj=101) CHLORIDE (BEAKER) (test 104 meq/L 98-107 xvtj=754) CO2 (BEAKER) (test 25 meq/L 22-29 bano=220) BLOOD UREA NITROGEN 31 mg/dL 7-21 (BEAKER) (test ovfx=605) CREATININE (BEAKER) (test 1.17 mg/dL 0.57-1.25 jiml=459) GLUCOSE RANDOM (BEAKER) 110 mg/dL 70-105 (test dqkf=038) CALCIUM (BEAKER) (test 7.7 mg/dL 8.4-10.2 jyvu=141) AST (SGOT) (BEAKER) (test 59 U/L 5-34 mldm=427) ALT (SGPT) (BEAKER) (test 28 U/L 6-55 shzi=010) EGFR (BEAKER) (test 64 mL/min/1.73 sq m ESTIMATED GFR IS NOT rfar=8010) ACCURATE CREATININE CLEARANCE IN PREDICTING GLOMERULAR FILTRATION RATE. ESTIMATED GFR IS NOT APPLICABLE FOR DIALYSIS PATIENTS. CBC W/PLT COUNT & AUTO [id number] 04:21:00 Test Item Value Reference Range Comments WHITE BLOOD CELL COUNT (BEAKER) (test yomn=394) 8.4 K/ L 3.5-10.5 RED BLOOD CELL COUNT (BEAKER) (test wkxf=995) 3.54 M/ L 4.63-6.08 HEMOGLOBIN (BEAKER) (test ilrz=755) 11.3 GM/DL 13.7-17.5 HEMATOCRIT (BEAKER) (test cdqw=818) 33.2 % 40.1-51.0 MEAN CORPUSCULAR VOLUME (BEAKER) (test gwca=975) 93.8 fL 79.0-92.2 MEAN CORPUSCULAR HEMOGLOBIN (BEAKER) (test 31.9 pg 25.7-32.2 shmb=293) MEAN CORPUSCULAR HEMOGLOBIN CONC (BEAKER) (test 34.0 GM/DL 32.3-36.5 entn=123) RED CELL DISTRIBUTION WIDTH (BEAKER) (test 17.4 % 11.6-14.4 kqnd=708) PLATELET COUNT (BEAKER) (test mdgm=110) 81 K/CU MM 150-450 MEAN PLATELET VOLUME (BEAKER) (test xzcs=630) 11.0 fL 9.4-12.4 NUCLEATED RED BLOOD CELLS (BEAKER) (test 0 /100 WBC 0-0 kmzd=270) NEUTROPHILS RELATIVE PERCENT (BEAKER) (test 81 % tdoi=538) LYMPHOCYTES RELATIVE PERCENT (BEAKER) (test 9 % pemi=491) MONOCYTES RELATIVE PERCENT (BEAKER) (test 8 % pcqv=225) EOSINOPHILS RELATIVE PERCENT (BEAKER) (test 1 % igws=876) BASOPHILS RELATIVE PERCENT (BEAKER) (test 0 % jwle=557) NEUTROPHILS ABSOLUTE COUNT (BEAKER) (test 6.85 K/ L 1.78-5.38 vsft=022) LYMPHOCYTES ABSOLUTE COUNT (BEAKER) (test 0.73 K/ L 1.32-3.57 fxym=384) MONOCYTES ABSOLUTE COUNT (BEAKER) (test fgve=070) 0.67 K/ L 0.30-0.82 EOSINOPHILS ABSOLUTE COUNT (BEAKER) (test 0.09 K/ L 0.04-0.54 wter=803) BASOPHILS ABSOLUTE COUNT (BEAKER) (test uxlw=262) 0.01 K/ L 0.01-0.08 IMMATURE GRANULOCYTES-RELATIVE PERCENT (BEAKER) 1 % 0-1 (test nhdh=3437) [id number] 04:11:00 Test Item Value Reference Range Comments PROTIME (BEAKER) (test xyat=934) 17.5 seconds 11.7-14.7 INR (BEAKER) (test riju=199) 1.4 <=5.9 PARTIAL THROMBOPLASTIN TIME (BEAKER) (test 37.9 seconds 22.5-36.0 nyrz=332) RECOMMENDED COUMADIN/WARFARIN INR THERAPY RANGESSTANDARD DOSE: 2.0 - 3.0 Includes: PROPHYLAXIS forvenous thrombosis, systemic embolization; TREATMENT for venous thrombosis and/or pulmonary embolus.HIGH RISK: Target INR is 2.5-3.5 for patients with mechanical heart valves.CALCIUM, [id number] 03:49:00 Test Item Value Reference Range Comments CALCIUM IONIZED (BEAKER) (test rjft=059) 1.03 mmol/L 1.12-1.27 PH, BLOOD (BEAKER) (test fdfo=4921) 7.41 POCT-GLUCOSE [id number] 21:30:00 Test Item Value Reference Range Comments POC-GLUCOSE METER (BEAKER) 139 mg/dL 70-110 TESTED AT [address] (test hfdz=9485) [facility] [address] CT, CHEST, WITHOUT [id number] 20:21:00FINAL REPORT CT scan of the chest. [...] MDReport Verified Date/Time :08/08/2018 20:21:41 Reading Location: [address] Consult Reading Room POCT- GLUCOSE [id number] 18:52:00 Test Item Value Reference Range Comments POC-GLUCOSE METER (BEAKER) 129 mg/dL 70-110 TESTED AT [facility] [address] [place] [address] (test lohj=3752) [facility] [address] [id number] 16:06:00 Test Item Value Reference Range Comments MAGNESIUM (BEAKER) (test oluf=027) 1.8 mg/dL 1.6-2.6 MR, ABDOMEN, [id number] 14:37:00FINAL REPORT INDICATION:Cirrhosis. Surveillance for hepatocellular carcinoma.COMPARISON: [...] MDReport Verified Date/Time: 08/08/2018 14:37:29 Reading Location: [facility] Body Reading Room POCT-GLUCOSE [id number] 12:13:00 Test Item Value Reference Range Comments POC-GLUCOSE METER (BEAKER) 126 mg/dL 70-110 TESTED AT [facility] [address] [facility] (test xsuk=8645) [facility] [address] POCT-GLUCOSE [id number] 08:54:00 Test Item Value Reference Range Comments POC-GLUCOSE METER (BEAKER) 172 mg/dL 70-110 TESTED AT [address] (test nuet=2329) [facility] [address] COMPREHENSIVE METABOLIC [id number] 04:09:00 Test Item Value Reference Range Comments TOTAL PROTEIN (BEAKER) 6.1 gm/dL 6.0-8.3 (test jaoa=839) ALBUMIN (BEAKER) (test 2.2 g/dL 3.5-5.0 kjdi=0593) ALKALINE PHOSPHATASE 113 U/L 40-150 (BEAKER) (test hotw=647) BILIRUBIN TOTAL (BEAKER) 2.5 mg/dL 0.2-1.2 (test iomy=243) SODIUM (BEAKER) (test 133 meq/L 136-145 scwt=563) POTASSIUM (BEAKER) (test 4.0 meq/L 3.5-5.1 ermz=035) CHLORIDE (BEAKER) (test 103 meq/L 98-107 gmhm=683) CO2 (BEAKER) (test 24 meq/L 22-29 cgia=678) BLOOD UREA NITROGEN 36 mg/dL 7-21 (BEAKER) (test omph=660) CREATININE (BEAKER) (test 1.11 mg/dL 0.57-1.25 vfgb=149) GLUCOSE RANDOM (BEAKER) 106 mg/dL 70-105 (test mssl=987) CALCIUM (BEAKER) (test 7.9 mg/dL 8.4-10.2 geqi=957) AST (SGOT) (BEAKER) (test 70 U/L 5-34 csbf=024) ALT (SGPT) (BEAKER) (test 30 U/L 6-55 iagu=791) EGFR (BEAKER) (test 68 mL/min/1.73 sq m ESTIMATED GFR IS NOT yule=5308) ACCURATE CREATININE CLEARANCE IN PREDICTING GLOMERULAR FILTRATION RATE. ESTIMATED GFR IS NOT APPLICABLE FOR DIALYSIS PATIENTS. Specimen slightly [id number] 04:05:00 Test Item Value Reference Range Comments PHOSPHORUS (BEAKER) (test fsxl=290) 3.4 mg/dL 2.3-4.7 [id number] 04:05:00 Test Item Value Reference Range Comments MAGNESIUM (BEAKER) (test vvwp=265) 1.7 mg/dL 1.6-2.6 BILIRUBIN, [id number] 04:05:00 Test Item Value Reference Range Comments BILIRUBIN DIRECT (BEAKER) (test vfkk=727) 1.9 mg/dL 0.1-0.5 [id number] 03:53:00 Test Item Value Reference Range Comments MAGNESIUM (BEAKER) (test mmmd=362) 1.6 mg/dL 1.6-2.6 [id number] 03:37:00 Test Item Value Reference Range Comments PROTIME (BEAKER) (test asrv=193) 17.1 seconds 11.7-14.7 INR (BEAKER) (test gmwt=506) 1.4 <=5.9 PARTIAL THROMBOPLASTIN TIME (BEAKER) (test 35.9 seconds 22.5-36.0 poio=342) RECOMMENDED COUMADIN/WARFARIN INR THERAPY RANGESSTANDARD DOSE: 2.0 - 3.0 Includes: PROPHYLAXIS forvenous thrombosis, systemic embolization; TREATMENT for venous thrombosis and/or pulmonary embolus.HIGH RISK: Target INR is 2.5-3.5 for patients with mechanical heart valves.CBC W/PLT COUNT & AUTO [id number] 03:29:00 Test Item Value Reference Range Comments WHITE BLOOD CELL COUNT (BEAKER) (test bhmk=584) 10.3 K/ L 3.5-10.5 RED BLOOD CELL COUNT (BEAKER) (test vatt=943) 3.86 M/ L 4.63-6.08 HEMOGLOBIN (BEAKER) (test hwtb=264) 12.2 GM/DL 13.7-17.5 HEMATOCRIT (BEAKER) (test zcma=233) 35.4 % 40.1-51.0 MEAN CORPUSCULAR VOLUME (BEAKER) (test jidb=625) 91.7 fL 79.0-92.2 MEAN CORPUSCULAR HEMOGLOBIN (BEAKER) (test 31.6 pg 25.7-32.2 fcfe=586) MEAN CORPUSCULAR HEMOGLOBIN CONC (BEAKER) (test 34.5 GM/DL 32.3-36.5 jpep=340) RED CELL DISTRIBUTION WIDTH (BEAKER) (test 17.2 % 11.6-14.4 ywca=205) PLATELET COUNT (BEAKER) (test lflo=358) 72 K/CU MM 150-450 MEAN PLATELET VOLUME (BEAKER) (test gzro=959) 11.0 fL 9.4-12.4 NUCLEATED RED BLOOD CELLS (BEAKER) (test 0 /100 WBC 0-0 rjmx=406) NEUTROPHILS RELATIVE PERCENT (BEAKER) (test 85 % aofu=796) LYMPHOCYTES RELATIVE PERCENT (BEAKER) (test 7 % dxjq=409) MONOCYTES RELATIVE PERCENT (BEAKER) (test 7 % gswu=238) EOSINOPHILS RELATIVE PERCENT (BEAKER) (test 1 % vouy=763) BASOPHILS RELATIVE PERCENT (BEAKER) (test 0 % gqhu=645) NEUTROPHILS ABSOLUTE COUNT (BEAKER) (test 8.69 K/ L 1.78-5.38 hmzc=912) LYMPHOCYTES ABSOLUTE COUNT (BEAKER) (test 0.69 K/ L 1.32-3.57 lbrq=469) MONOCYTES ABSOLUTE COUNT (BEAKER) (test hxgf=034) 0.74 K/ L 0.30-0.82 EOSINOPHILS ABSOLUTE COUNT (BEAKER) (test 0.06 K/ L 0.04-0.54 riyi=727) BASOPHILS ABSOLUTE COUNT (BEAKER) (test zsyo=382) 0.02 K/ L 0.01-0.08 IMMATURE GRANULOCYTES-RELATIVE PERCENT (BEAKER) 1 % 0-1 (test yyff=5935) CALCIUM, [id number] 03:23:00 Test Item Value Reference Range Comments CALCIUM IONIZED (BEAKER) (test imld=502) 1.00 mmol/L 1.12-1.27 PH, BLOOD (BEAKER) (test zcog=6320) 7.45 POCT-GLUCOSE [id number] 22:31:00 Test Item Value Reference Range Comments POC-GLUCOSE METER (BEAKER) 144 mg/dL 70-110 TESTED AT [place] [id number] [facility] (test gmxx=4833) [facility] [id number] POCT-GLUCOSE [id number] 16:34:00 Test Item Value Reference Range Comments POC-GLUCOSE METER (BEAKER) 127 mg/dL 70-110 TESTED AT [address] (test abii=7717) [facility] [id number] POCT-GLUCOSE [id number] 12:58:00 Test Item Value Reference Range Comments POC-GLUCOSE METER (BEAKER) 144 mg/dL 70-110 TESTED AT [address] (test bres=0582) [facility] [address] CBC W/PLT COUNT & AUTO [id number] 07:12:00 Test Item Value Reference Range Comments WHITE BLOOD CELL COUNT (BEAKER) (test zlzs=401) 10.1 K/ L 3.5-10.5 RED BLOOD CELL COUNT (BEAKER) (test fvpj=960) 4.15 M/ L 4.63-6.08 HEMOGLOBIN (BEAKER) (test znkz=683) 13.0 GM/DL 13.7-17.5 HEMATOCRIT (BEAKER) (test fvhv=300) 39.1 % 40.1-51.0 MEAN CORPUSCULAR VOLUME (BEAKER) (test hkbr=781) 94.2 fL 79.0-92.2 MEAN CORPUSCULAR HEMOGLOBIN (BEAKER) (test 31.3 pg 25.7-32.2 mkov=135) MEAN CORPUSCULAR HEMOGLOBIN CONC (BEAKER) (test 33.2 GM/DL 32.3-36.5 dcni=698) RED CELL DISTRIBUTION WIDTH (BEAKER) (test 17.3 % 11.6-14.4 trkr=650) PLATELET COUNT (BEAKER) (test ekww=267) 80 K/CU MM 150-450 MEAN PLATELET VOLUME (BEAKER) (test fixc=665) 11.8 fL 9.4-12.4 NUCLEATED RED BLOOD CELLS (BEAKER) (test 0 /100 WBC 0-0 yshx=415) NEUTROPHILS RELATIVE PERCENT (BEAKER) (test 83 % urgp=429) LYMPHOCYTES RELATIVE PERCENT (BEAKER) (test 7 % rtxy=684) MONOCYTES RELATIVE PERCENT (BEAKER) (test 8 % reqt=859) EOSINOPHILS RELATIVE PERCENT (BEAKER) (test 1 % cmca=919) BASOPHILS RELATIVE PERCENT (BEAKER) (test 0 % dayd=913) NEUTROPHILS ABSOLUTE COUNT (BEAKER) (test 8.40 K/ L 1.78-5.38 xgkr=098) LYMPHOCYTES ABSOLUTE COUNT (BEAKER) (test 0.67 K/ L 1.32-3.57 qdjd=210) MONOCYTES ABSOLUTE COUNT (BEAKER) (test tnfl=780) 0.78 K/ L 0.30-0.82 EOSINOPHILS ABSOLUTE COUNT (BEAKER) (test 0.08 K/ L 0.04-0.54 xrxt=850) BASOPHILS ABSOLUTE COUNT (BEAKER) (test ielp=105) 0.01 K/ L 0.01-0.08 IMMATURE GRANULOCYTES-RELATIVE PERCENT (BEAKER) 1 % 0-1 (test wnmm=3562) [id number] 07:07:00 Test Item Value Reference Range Comments PREALBUMIN (BEAKER) (test tgjn=174) 7 mg/dL 14-45 COMPREHENSIVE METABOLIC [id number] 06:58:00 Test Item Value Reference Range Comments TOTAL PROTEIN (BEAKER) 6.1 gm/dL 6.0-8.3 (test entl=453) ALBUMIN (BEAKER) (test 2.3 g/dL 3.5-5.0 ojtk=5014) ALKALINE PHOSPHATASE 98 U/L 40-150 (BEAKER) (test xkej=776) BILIRUBIN TOTAL (BEAKER) 2.6 mg/dL 0.2-1.2 (test tcex=331) SODIUM (BEAKER) (test 133 meq/L 136-145 xcpt=487) POTASSIUM (BEAKER) (test 3.9 meq/L 3.5-5.1 ubxg=499) CHLORIDE (BEAKER) (test 102 meq/L 98-107 aeub=662) CO2 (BEAKER) (test 25 meq/L 22-29 iyid=638) BLOOD UREA NITROGEN 43 mg/dL 7-21 (BEAKER) (test cgvt=479) CREATININE (BEAKER) (test 1.17 mg/dL 0.57-1.25 gjmz=230) GLUCOSE RANDOM (BEAKER) 93 mg/dL 70-105 (test ovii=275) CALCIUM (BEAKER) (test 7.8 mg/dL 8.4-10.2 ijzk=046) AST (SGOT) (BEAKER) (test 65 U/L 5-34 yxhl=628) ALT (SGPT) (BEAKER) (test 29 U/L 6-55 ffoi=990) EGFR (BEAKER) (test 64 mL/min/1.73 sq m ESTIMATED GFR IS NOT amhf=0085) ACCURATE CREATININE CLEARANCE IN PREDICTING GLOMERULAR FILTRATION RATE. ESTIMATED GFR IS NOT APPLICABLE FOR DIALYSIS PATIENTS. Specimen slightly [id number] 06:57:00 Test Item Value Reference Range Comments MAGNESIUM (BEAKER) (test otho=120) 1.8 mg/dL 1.6-2.6 [id number] 06:57:00 Test Item Value Reference Range Comments PHOSPHORUS (BEAKER) (test xrjn=423) 3.1 mg/dL 2.3-4.7 [id number] 06:57:00 Test Item Value Reference Range Comments TRIGLYCERIDES (BEAKER) (test agfw=387) 64 mg/dL TRIGLYCERIDE REFERENCE RANGELow Risk <150Borderline Risk 150-199High Risk 200-499Very High Risk>=500Specimen slightly ictericBILIRUBIN, [id number] 06:57:00 Test Item Value Reference Range Comments BILIRUBIN DIRECT (BEAKER) (test apod=794) 2.0 mg/dL 0.1-0.5 C-REACTIVE [id number] 06:57:00 Test Item Value Reference Range Comments C-REACTIVE PROTEIN (BEAKER) (test jlmd=136) 3.98 mg/dL 0.00-0.50 [id number] 06:37:00 Test Item Value Reference Range Comments MAGNESIUM (BEAKER) (test bwbd=786) 1.8 mg/dL 1.6-2.6 [id number] 06:10:00 Test Item Value Reference Range Comments PROTIME (BEAKER) (test srsz=960) 17.3 seconds 11.7-14.7 INR (BEAKER) (test ipbe=520) 1.4 <=5.9 PARTIAL THROMBOPLASTIN TIME (BEAKER) (test 38.9 seconds 22.5-36.0 mdfo=833) RECOMMENDED COUMADIN/WARFARIN INR THERAPY RANGESSTANDARD DOSE: 2.0 - 3.0 Includes: PROPHYLAXIS forvenous thrombosis, systemic embolization; TREATMENT for venous thrombosis and/or pulmonary embolus.HIGH RISK: Target INR is 2.5-3.5 for patients with mechanical heart valves.CALCIUM, [id number] 05:17:00 Test Item Value Reference Range Comments CALCIUM IONIZED (BEAKER) (test ohrt=641) 1.01 mmol/L 1.12-1.27 PH, BLOOD (BEAKER) (test aggl=0630) 7.43 POCT-GLUCOSE [id number] 22:09:00 Test Item Value Reference Range Comments POC-GLUCOSE METER (BEAKER) 131 mg/dL 70-110 TESTED AT [address] (test ctbz=1283) [place] [address] POCT-GLUCOSE [id number] 16:04:00 Test Item Value Reference Range Comments POC-GLUCOSE METER (BEAKER) 126 mg/dL 70-110 TESTED AT [address] (test dajm=9535) [place] [address] U/S, [id number] 15:57:00Reason for exam:->large volume ascitesFINAL REPORT Procedure: [...] none. Impression: Uncomplicated ultrasound-guided paracentesis Signed: [facility] Verified Date/Time: 08/06/2018 15:57:17 Reading Location: [facility] C013X [facility] Consult Reading Room BODY FLUID CELL COUNT WITH [id number] 15:17:00 Test Item Value Reference Range Comments APPEARANCE FLUID (BEAKER) (test zopo=201) Bloody Clear COLOR FLUID (BEAKER) (test ofbc=246) [place] Colorless, Straw RBC FLUID (BEAKER) (test giqs=050) [address] /cu mm <=1 ADJUSTED WBC FLUID (BEAKER) (test bpdl=2124) 1040 /cu mm <=5 LINING CELLS (BEAKER) (test hrkc=6374) 0 /cu mm <=1 NEUTROPHILS FLUID (BEAKER) (test tccy=0333) 74 % LYMPHS FLUID (BEAKER) (test btzi=198) 10 % MONO/MACROPHAGE FLUID (BEAKER) (test mxhr=594) 16 % EOSINOPHILS FLUID (BEAKER) (test bkog=382) 0 % BASO FLUID (BEAKER) (test bdjg=939) 0 % CONTAINER BODY FLUID (BEAKER) (test okfo=2311) EDTA Tube ALBUMIN, BODY [id number] 15:15:00 Test Item Value Reference Range Comments ALBUMIN FLUID (BEAKER) (test esmb=445) 1.0 gm/dL Reference Range: No Normals Assay performance has not been validated for this type of specimen.PROTEIN, BODY [id number] 15:13:00 Test Item Value Reference Range Comments PROTEIN FLUID (BEAKER) (test mqrw=946) 1.8 g/dL Absence of reference range indicates that normals have not been defined.Assay performance has not been validated for this type of specimen.BODY FLUID CULTURE + GRAM [id number] 14:46:00 Test Item Value Reference Range Comments CULTURE (BEAKER) (test xquz=6161) No growth GRAM STAIN RESULT (BEAKER) (test 1+ WBCs akcs=3587) GRAM STAIN RESULT (BEAKER) (test No organisms seen setr=71122) POCT-GLUCOSE [id number] 12:05:00 Test Item Value Reference Range Comments POC-GLUCOSE METER (BEAKER) 204 mg/dL 70-110 TESTED AT [facility] [address] (test hagt=8129) [facility] [address] POCT-GLUCOSE [id number] 08:23:00 Test Item Value Reference Range Comments POC-GLUCOSE METER (BEAKER) 101 mg/dL 70-110 TESTED AT [facility] [address] (test gbmp=4977) [facility] [address] CBC W/PLT COUNT & AUTO [id number] 06:40:00 Test Item Value Reference Range Comments WHITE BLOOD CELL COUNT (BEAKER) (test pzkd=625) 11.1 K/ L 3.5-10.5 RED BLOOD CELL COUNT (BEAKER) (test hkeo=796) 4.03 M/ L 4.63-6.08 HEMOGLOBIN (BEAKER) (test gfku=572) 12.7 GM/DL 13.7-17.5 HEMATOCRIT (BEAKER) (test pmvt=152) 37.6 % 40.1-51.0 MEAN CORPUSCULAR VOLUME (BEAKER) (test ivzr=287) 93.3 fL 79.0-92.2 MEAN CORPUSCULAR HEMOGLOBIN (BEAKER) (test 31.5 pg 25.7-32.2 zrjh=327) MEAN CORPUSCULAR HEMOGLOBIN CONC (BEAKER) (test 33.8 GM/DL 32.3-36.5 zsev=988) RED CELL DISTRIBUTION WIDTH (BEAKER) (test 16.7 % 11.6-14.4 laux=186) PLATELET COUNT (BEAKER) (test urjl=387) 69 K/CU MM 150-450 MEAN PLATELET VOLUME (BEAKER) (test jzyg=713) 11.4 fL 9.4-12.4 NUCLEATED RED BLOOD CELLS (BEAKER) (test 0 /100 WBC 0-0 djvu=378) NEUTROPHILS RELATIVE PERCENT (BEAKER) (test 84 % qpjq=996) LYMPHOCYTES RELATIVE PERCENT (BEAKER) (test 6 % hzww=632) MONOCYTES RELATIVE PERCENT (BEAKER) (test 7 % mqth=593) EOSINOPHILS RELATIVE PERCENT (BEAKER) (test 1 % vjot=625) BASOPHILS RELATIVE PERCENT (BEAKER) (test 0 % wjwg=248) NEUTROPHILS ABSOLUTE COUNT (BEAKER) (test 9.35 K/ L 1.78-5.38 iaav=948) LYMPHOCYTES ABSOLUTE COUNT (BEAKER) (test 0.70 K/ L 1.32-3.57 bxiw=674) MONOCYTES ABSOLUTE COUNT (BEAKER) (test lage=904) 0.78 K/ L 0.30-0.82 EOSINOPHILS ABSOLUTE COUNT (BEAKER) (test 0.08 K/ L 0.04-0.54 mokc=379) BASOPHILS ABSOLUTE COUNT (BEAKER) (test knwc=590) 0.02 K/ L 0.01-0.08 IMMATURE GRANULOCYTES-RELATIVE PERCENT (BEAKER) 2 % 0-1 (test xqen=4557) CALCIUM, [id number] 06:02:00 Test Item Value Reference Range Comments CALCIUM IONIZED (BEAKER) (test kamk=577) 0.98 mmol/L 1.12-1.27 PH, BLOOD (BEAKER) (test soqh=4633) 7.43 COMPREHENSIVE METABOLIC [id number] 05:53:00 Test Item Value Reference Range Comments TOTAL PROTEIN (BEAKER) 5.9 gm/dL 6.0-8.3 (test irbj=321) ALBUMIN (BEAKER) (test 2.4 g/dL 3.5-5.0 sldp=0102) ALKALINE PHOSPHATASE 79 U/L 40-150 (BEAKER) (test ixdq=462) BILIRUBIN TOTAL (BEAKER) 2.7 mg/dL 0.2-1.2 (test mmll=762) SODIUM (BEAKER) (test 132 meq/L 136-145 tmkw=785) POTASSIUM (BEAKER) (test 4.0 meq/L 3.5-5.1 czhf=225) CHLORIDE (BEAKER) (test 101 meq/L 98-107 sobk=789) CO2 (BEAKER) (test 26 meq/L 22-29 bnzg=168) BLOOD UREA NITROGEN 50 mg/dL 7-21 (BEAKER) (test nhbn=498) CREATININE (BEAKER) (test 1.12 mg/dL 0.57-1.25 ihst=398) GLUCOSE RANDOM (BEAKER) 105 mg/dL 70-105 (test mcwp=540) CALCIUM (BEAKER) (test 7.7 mg/dL 8.4-10.2 sxic=235) AST (SGOT) (BEAKER) (test 56 U/L 5-34 siwv=431) ALT (SGPT) (BEAKER) (test 25 U/L 6-55 tjts=928) EGFR (BEAKER) (test 68 mL/min/1.73 sq m ESTIMATED GFR IS NOT rufl=5022) ACCURATE CREATININE CLEARANCE IN PREDICTING GLOMERULAR FILTRATION RATE. ESTIMATED GFR IS NOT APPLICABLE FOR DIALYSIS PATIENTS. Specimen slightly ictericPT/[id number] 05:52:00 Test Item Value Reference Range Comments PROTIME (BEAKER) (test gecp=291) 19.2 seconds 11.7-14.7 INR (BEAKER) (test qgxg=923) 1.6 <=5.9 PARTIAL THROMBOPLASTIN TIME (BEAKER) (test 38.0 seconds 22.5-36.0 rtzy=761) RECOMMENDED COUMADIN/WARFARIN INR THERAPY RANGESSTANDARD DOSE: 2.0 - 3.0 Includes: PROPHYLAXIS forvenous thrombosis, systemic embolization; TREATMENT for venous thrombosis and/or pulmonary embolus.HIGH RISK: Target INR is 2.5-3.5 for patients with mechanical heart valves.[id number] 05:36:00 Test Item Value Reference Range Comments PHOSPHORUS (BEAKER) (test mwfk=996) 2.5 mg/dL 2.3-4.7 [id number] 05:36:00 Test Item Value Reference Range Comments MAGNESIUM (BEAKER) (test mpvz=719) 1.9 mg/dL 1.6-2.6 BILIRUBIN, [id number] 05:36:00 Test Item Value Reference Range Comments BILIRUBIN DIRECT (BEAKER) (test svph=594) 2.0 mg/dL 0.1-0.5 B-TYPE NATRIURETIC FACTOR (BNP)2018-08-06 05:32:00 Test Item Value Reference Range Comments B-TYPE NATRIURETIC PEPTIDE (BEAKER) (test 139 pg/mL 0-100 wqrn=722) BLOOD [id number] 01:01:00 Test Item Value Reference Range Comments CULTURE (BEAKER) (test mryi=3702) No growth in 5 days BLOOD [id number] 01:01:00 Test Item Value Reference Range Comments CULTURE (BEAKER) (test nuii=4679) No growth in 5 days POCT-GLUCOSE [id number] 21:48:00 Test Item Value Reference Range Comments POC-GLUCOSE METER (BEAKER) 155 mg/dL 70-110 TESTED AT [facility] [address] (test atjm=6186) [facility] [address] BLOOD [id number] 19:05:00 Test Item Value Reference Range Comments CULTURE (BEAKER) From Aerobic Bottle Only (test bzzn=4262) Coagulase negative Staphylococcus GRAM STAIN RESULT From aerobic bottle (BEAKER) (test only: gram positive uwrs=2500) cocci in clusters POCT-GLUCOSE [id number] 17:46:00 Test Item Value Reference Range Comments POC-GLUCOSE METER (BEAKER) 119 mg/dL 70-110 TESTED AT [facility] [address] (test xbqt=2782) [facility] [address] POCT-GLUCOSE [id number] 12:00:00 Test Item Value Reference Range Comments POC-GLUCOSE METER (BEAKER) 148 mg/dL 70-110 TESTED AT [facility] [address] (test tbay=8093) [facility] [address] COMPREHENSIVE METABOLIC [id number] 07:14:00 Test Item Value Reference Range Comments TOTAL PROTEIN (BEAKER) 5.4 gm/dL 6.0-8.3 (test copy=104) ALBUMIN (BEAKER) (test 2.4 g/dL 3.5-5.0 uoke=9369) ALKALINE PHOSPHATASE 65 U/L 40-150 (BEAKER) (test apac=780) BILIRUBIN TOTAL (BEAKER) 2.8 mg/dL 0.2-1.2 (test dund=141) SODIUM (BEAKER) (test 134 meq/L 136-145 klod=597) POTASSIUM (BEAKER) (test 4.0 meq/L 3.5-5.1 yxga=175) CHLORIDE (BEAKER) (test 101 meq/L 98-107 rrei=059) CO2 (BEAKER) (test 28 meq/L 22-29 qikl=184) BLOOD UREA NITROGEN 58 mg/dL 7-21 (BEAKER) (test aufb=800) CREATININE (BEAKER) (test 1.22 mg/dL 0.57-1.25 qzrq=978) GLUCOSE RANDOM (BEAKER) 109 mg/dL 70-105 (test bstb=891) CALCIUM (BEAKER) (test 7.9 mg/dL 8.4-10.2 sryf=832) AST (SGOT) (BEAKER) (test 51 U/L 5-34 fdts=829) ALT (SGPT) (BEAKER) (test 23 U/L 6-55 snvr=706) EGFR (BEAKER) (test 61 mL/min/1.73 sq m ESTIMATED GFR IS NOT umjb=9223) ACCURATE CREATININE CLEARANCE IN PREDICTING GLOMERULAR FILTRATION RATE. ESTIMATED GFR IS NOT APPLICABLE FOR DIALYSIS PATIENTS. Specimen slightly [id number] 07:12:00 Test Item Value Reference Range Comments PHOSPHORUS (BEAKER) (test pldd=624) 2.4 mg/dL 2.3-4.7 [id number] 07:12:00 Test Item Value Reference Range Comments MAGNESIUM (BEAKER) (test netr=977) 2.0 mg/dL 1.6-2.6 BILIRUBIN, [id number] 07:12:00 Test Item Value Reference Range Comments BILIRUBIN DIRECT (BEAKER) (test tozm=647) 2.1 mg/dL 0.1-0.5 CALCIUM, [id number] 07:04:00 Test Item Value Reference Range Comments CALCIUM IONIZED (BEAKER) (test daxg=119) 0.94 mmol/L 1.12-1.27 PH, BLOOD (BEAKER) (test fyqm=5580) 7.48 CBC W/PLT COUNT & AUTO [id number] 07:04:00 Test Item Value Reference Range Comments WHITE BLOOD CELL COUNT (BEAKER) (test klie=189) 10.0 K/ L 3.5-10.5 RED BLOOD CELL COUNT (BEAKER) (test capv=266) 3.86 M/ L 4.63-6.08 HEMOGLOBIN (BEAKER) (test ldge=624) 12.2 GM/DL 13.7-17.5 HEMATOCRIT (BEAKER) (test jonn=214) 36.2 % 40.1-51.0 MEAN CORPUSCULAR VOLUME (BEAKER) (test kory=851) 93.8 fL 79.0-92.2 MEAN CORPUSCULAR HEMOGLOBIN (BEAKER) (test 31.6 pg 25.7-32.2 adqe=083) MEAN CORPUSCULAR HEMOGLOBIN CONC (BEAKER) (test 33.7 GM/DL 32.3-36.5 dyzd=895) RED CELL DISTRIBUTION WIDTH (BEAKER) (test 16.1 % 11.6-14.4 zmvi=158) PLATELET COUNT (BEAKER) (test luwl=285) 50 K/CU MM 150-450 MEAN PLATELET VOLUME (BEAKER) (test eerm=839) 10.5 fL 9.4-12.4 NUCLEATED RED BLOOD CELLS (BEAKER) (test 0 /100 WBC 0-0 cjli=220) NEUTROPHILS RELATIVE PERCENT (BEAKER) (test 82 % czcj=752) LYMPHOCYTES RELATIVE PERCENT (BEAKER) (test 6 % agna=976) MONOCYTES RELATIVE PERCENT (BEAKER) (test 9 % azwi=600) EOSINOPHILS RELATIVE PERCENT (BEAKER) (test 1 % apjk=185) BASOPHILS RELATIVE PERCENT (BEAKER) (test 0 % jyii=724) NEUTROPHILS ABSOLUTE COUNT (BEAKER) (test 8.13 K/ L 1.78-5.38 wxuo=287) LYMPHOCYTES ABSOLUTE COUNT (BEAKER) (test 0.60 K/ L 1.32-3.57 xykq=791) MONOCYTES ABSOLUTE COUNT (BEAKER) (test xqsw=120) 0.90 K/ L 0.30-0.82 EOSINOPHILS ABSOLUTE COUNT (BEAKER) (test 0.10 K/ L 0.04-0.54 pqbb=616) BASOPHILS ABSOLUTE COUNT (BEAKER) (test sgfj=882) 0.01 K/ L 0.01-0.08 IMMATURE GRANULOCYTES-RELATIVE PERCENT (BEAKER) 2 % 0-1 (test bseg=1582) [id number] 06:40:00 Test Item Value Reference Range Comments PROTIME (BEAKER) (test dhit=645) 20.1 seconds 11.7-14.7 INR (BEAKER) (test vuhq=743) 1.7 <=5.9 PARTIAL THROMBOPLASTIN TIME (BEAKER) (test 38.9 seconds 22.5-36.0 wdjs=222) RECOMMENDED COUMADIN/WARFARIN INR THERAPY RANGESSTANDARD DOSE: 2.0 - 3.0 Includes: PROPHYLAXIS forvenous thrombosis, systemic embolization; TREATMENT for venous thrombosis and/or pulmonary embolus.HIGH RISK: Target INR is 2.5-3.5 for patients with mechanical heart valves.POCT-GLUCOSE [id number] 05:41:00 Test Item Value Reference Range Comments POC-GLUCOSE METER (BEAKER) 119 mg/dL 70-110 TESTED AT [address] (test jyfa=1439) [facility] [address] POCT-GLUCOSE [id number] 23:07:00 Test Item Value Reference Range Comments POC-GLUCOSE METER (BEAKER) 176 mg/dL 70-110 TESTED AT [address] (test rcpj=5823) [facility] [address] POCT-GLUCOSE [id number] 17:28:00 Test Item Value Reference Range Comments POC-GLUCOSE METER (BEAKER) 148 mg/dL 70-110 TESTED AT [address] (test nure=3568) [facility] [address] [id number] 16:32:00 Test Item Value Reference Range Comments MAGNESIUM (BEAKER) (test 3.8 mg/dL 1.6-2.6 Specimen markedly hemolyzed gbdr=514) HEMOGLOBIN AND [id number] 16:06:00 Test Item Value Reference Range Comments HEMOGLOBIN (BEAKER) (test kezc=556) 12.3 GM/DL 13.7-17.5 HEMATOCRIT (BEAKER) (test ymkr=399) 35.2 % 40.1-51.0 POCT-GLUCOSE [id number] 13:34:00 Test Item Value Reference Range Comments POC-GLUCOSE METER (BEAKER) 179 mg/dL 70-110 TESTED AT [address] (test ftkf=1663) [place] [id number] POCT-GLUCOSE [id number] 09:10:00 Test Item Value Reference Range Comments POC-GLUCOSE METER (BEAKER) 172 mg/dL 70-110 TESTED AT [address] (test ktor=2212) [facility] [address] CALCIUM, [id number] 05:36:00 Test Item Value Reference Range Comments CALCIUM IONIZED (BEAKER) (test dkcf=946) 1.05 mmol/L 1.12-1.27 PH, BLOOD (BEAKER) (test ccsk=4537) 7.41 [id number] 04:39:00 Test Item Value Reference Range Comments PHOSPHORUS (BEAKER) (test ppun=986) 1.9 mg/dL 2.3-4.7 [id number] 04:39:00 Test Item Value Reference Range Comments MAGNESIUM (BEAKER) (test fibz=876) 2.5 mg/dL 1.6-2.6 COMPREHENSIVE METABOLIC [id number] 04:39:00 Test Item Value Reference Range Comments TOTAL PROTEIN (BEAKER) 5.1 gm/dL 6.0-8.3 (test xigv=000) ALBUMIN (BEAKER) (test 2.6 g/dL 3.5-5.0 zxnu=5293) ALKALINE PHOSPHATASE 52 U/L 40-150 (BEAKER) (test mgcj=164) BILIRUBIN TOTAL (BEAKER) 2.5 mg/dL 0.2-1.2 (test zojf=627) SODIUM (BEAKER) (test 132 meq/L 136-145 pine=810) POTASSIUM (BEAKER) (test 3.8 meq/L 3.5-5.1 ntqt=617) CHLORIDE (BEAKER) (test 101 meq/L 98-107 sttk=486) CO2 (BEAKER) (test 26 meq/L 22-29 pllr=619) BLOOD UREA NITROGEN 71 mg/dL 7-21 (BEAKER) (test udin=432) CREATININE (BEAKER) (test 1.46 mg/dL 0.57-1.25 hfgu=712) GLUCOSE RANDOM (BEAKER) 124 mg/dL 70-105 (test nzzl=336) CALCIUM (BEAKER) (test 8.1 mg/dL 8.4-10.2 rsgo=309) AST (SGOT) (BEAKER) (test 40 U/L 5-34 konm=121) ALT (SGPT) (BEAKER) (test 22 U/L 6-55 ejnq=449) EGFR (BEAKER) (test 50 mL/min/1.73 sq m ESTIMATED GFR IS NOT iuob=5512) ACCURATE CREATININE CLEARANCE IN PREDICTING GLOMERULAR FILTRATION RATE. ESTIMATED GFR IS NOT APPLICABLE FOR DIALYSIS PATIENTS. BILIRUBIN, [id number] 04:39:00 Test Item Value Reference Range Comments BILIRUBIN DIRECT (BEAKER) (test keto=231) 1.9 mg/dL 0.1-0.5 [id number] 04:26:00 Test Item Value Reference Range Comments PROTIME (BEAKER) (test czzj=582) 20.0 seconds 11.7-14.7 INR (BEAKER) (test tjzb=311) 1.7 <=5.9 PARTIAL THROMBOPLASTIN TIME (BEAKER) (test 41.2 seconds 22.5-36.0 zurp=245) RECOMMENDED COUMADIN/WARFARIN INR THERAPY RANGESSTANDARD DOSE: 2.0 - 3.0 Includes: PROPHYLAXIS forvenous thrombosis, systemic embolization; TREATMENT for venous thrombosis and/or pulmonary embolus.HIGH RISK: Target INR is 2.5-3.5 for patients with mechanical heart valves.CBC W/PLT COUNT & AUTO [id number] 04:23:00 Test Item Value Reference Range Comments WHITE BLOOD CELL COUNT (BEAKER) (test ipxc=248) 8.4 K/ L 3.5-10.5 RED BLOOD CELL COUNT (BEAKER) (test jrcl=552) 3.75 M/ L 4.63-6.08 HEMOGLOBIN (BEAKER) (test otdy=335) 11.8 GM/DL 13.7-17.5 HEMATOCRIT (BEAKER) (test vggj=365) 34.6 % 40.1-51.0 MEAN CORPUSCULAR VOLUME (BEAKER) (test wlzi=542) 92.3 fL 79.0-92.2 MEAN CORPUSCULAR HEMOGLOBIN (BEAKER) (test 31.5 pg 25.7-32.2 xnlu=781) MEAN CORPUSCULAR HEMOGLOBIN CONC (BEAKER) (test 34.1 GM/DL 32.3-36.5 iboh=620) RED CELL DISTRIBUTION WIDTH (BEAKER) (test 15.5 % 11.6-14.4 jsap=806) PLATELET COUNT (BEAKER) (test knzc=156) 47 K/CU MM 150-450 MEAN PLATELET VOLUME (BEAKER) (test zfzm=237) 10.4 fL 9.4-12.4 NUCLEATED RED BLOOD CELLS (BEAKER) (test 0 /100 WBC 0-0 kzbk=440) NEUTROPHILS RELATIVE PERCENT (BEAKER) (test 80 % zkgr=068) LYMPHOCYTES RELATIVE PERCENT (BEAKER) (test 8 % uxmv=567) MONOCYTES RELATIVE PERCENT (BEAKER) (test 9 % gbgu=117) EOSINOPHILS RELATIVE PERCENT (BEAKER) (test 1 % tdzy=786) BASOPHILS RELATIVE PERCENT (BEAKER) (test 0 % zdux=369) NEUTROPHILS ABSOLUTE COUNT (BEAKER) (test 6.71 K/ L 1.78-5.38 roiq=779) LYMPHOCYTES ABSOLUTE COUNT (BEAKER) (test 0.64 K/ L 1.32-3.57 puqy=731) MONOCYTES ABSOLUTE COUNT (BEAKER) (test yucp=520) 0.78 K/ L 0.30-0.82 EOSINOPHILS ABSOLUTE COUNT (BEAKER) (test 0.06 K/ L 0.04-0.54 uunc=390) BASOPHILS ABSOLUTE COUNT (BEAKER) (test hzel=700) 0.01 K/ L 0.01-0.08 IMMATURE GRANULOCYTES-RELATIVE PERCENT (BEAKER) 2 % 0-1 (test sxcp=1948) POCT-GLUCOSE [id number] 01:53:00 Test Item Value Reference Range Comments POC-GLUCOSE METER (BEAKER) 143 mg/dL 70-110 TESTED AT [facility] [address] (test gmrq=5194) [facility] [address] ANAEROBIC [id number] 18:23:00 Test Item Value Reference Range Comments CULTURE (BEAKER) (test uriu=4522) No anaerobes isolated TISSUE [id number] 18:18:00Surgical Pathology Report Case: [id number] Authorizing Provider: Anjel Moya MD Collected: 07/30/2018 1101 Ordering Location: [address] Received: 08/01/2018 0842 Pathologist: Bel Cid [...] comment Signing Pathologist Direct Phone Line : [phone] signed by Bel Cid MD on 2018 [...] Sci. 2003 Mar;94(10):851-857.Intradepartmental consultation on specimen B: Dr.Sadhna [id number]; 33484; 40672 x 3; [id number] bowelA. Small bowel. B. Liver biopsy Specimen [...] 0.2 to 0.6 cm in greatest dimension. [employer] Worker sections are submitted as follows: A1, arbitrarily designated margin 1; A2, arbitrarily designated margin 2; A3, product representative mesenteric margin, en face; A4-A5, product representative full-thickness perforation; A6, A7, product representative purulent areas proximal to perforation; A8- A9, product representative bowel wall; A10, soft tissue is area of perforation; A11, three candidate lymph nodes, whole.Specimen B: Received in formalin labeled "liver biopsy" consists of two cylindrical cores of culver-white soft tissue measuring 0.1 cm in diameter and 1.1 and 1.2 cm in length, respectively. The specimen is submitted in its entirety in cassette B1. JY/Gilles-B. Performed.B. Section shows liver parenchyma with moderately [...] special stains. Hepar-1; CK7; CK19 ; Arginase ;[place]'sImmunohistochemistry technical testing was performed at [facility], Pathology Laboratory where it was developed and [...] to perform high complexity clinical laboratory testing.POCT-GLUCOSE [id number] 17:24:00 Test Item Value Reference Range Comments POC-GLUCOSE METER (BEAKER) 130 mg/dL 70-110 TESTED AT [address] (test cxfr=6764) [place] [id number] POCT-GLUCOSE [id number] 12:03:00 Test Item Value Reference Range Comments POC-GLUCOSE METER (BEAKER) 142 mg/dL 70-110 TESTED AT [address] (test fsvf=2078) [place] [id number] POCT-GLUCOSE [id number] 09:05:00 Test Item Value Reference Range Comments POC-GLUCOSE METER (BEAKER) 118 mg/dL 70-110 TESTED AT [address] (test ltnb=6720) [place] [id number] RAD, CHEST, 1 VIEW, NON [id number] 09:00:00Reason for exam:->pleural effusion vs atelectasisShould this [...] Tafoya Verified Date/Time: 08/03/2018 09:00:26 Reading Location: [facility] Reading Room 09: 00 AMHIV-1 ANTIGEN WITH HIV-1/2 [id number] 05:55:00 Test Item Value Reference Range Comments HIV-1 ANTIGEN WITH HIV 1\\T\\2 ANTIBODY (2) Nonreactive Nonreactive (BEAKER) (test clpo=8706) [id number] 05:54:00 Test Item Value Reference Range Comments MAGNESIUM (BEAKER) (test puvn=809) 2.8 mg/dL 1.6-2.6 COMPREHENSIVE METABOLIC [id number] 05:54:00 Test Item Value Reference Range Comments TOTAL PROTEIN (BEAKER) 5.1 gm/dL 6.0-8.3 (test dsnc=343) ALBUMIN (BEAKER) (test 2.7 g/dL 3.5-5.0 kjxc=8319) ALKALINE PHOSPHATASE 54 U/L 40-150 (BEAKER) (test dcvg=953) BILIRUBIN TOTAL (BEAKER) 2.7 mg/dL 0.2-1.2 (test qhae=071) SODIUM (BEAKER) (test 132 meq/L 136-145 fkkq=887) POTASSIUM (BEAKER) (test 4.0 meq/L 3.5-5.1 euwf=725) CHLORIDE (BEAKER) (test 102 meq/L 98-107 pwpo=275) CO2 (BEAKER) (test 24 meq/L 22-29 pqgd=068) BLOOD UREA NITROGEN 84 mg/dL 7-21 (BEAKER) (test twrw=246) CREATININE (BEAKER) (test 2.09 mg/dL 0.57-1.25 xfrq=134) GLUCOSE RANDOM (BEAKER) 99 mg/dL 70-105 (test egdx=631) CALCIUM (BEAKER) (test 8.0 mg/dL 8.4-10.2 ogum=332) AST (SGOT) (BEAKER) (test 38 U/L 5-34 mjyt=340) ALT (SGPT) (BEAKER) (test 24 U/L 6-55 ebvh=354) EGFR (BEAKER) (test 33 mL/min/1.73 sq m ESTIMATED GFR IS NOT nydl=5581) ACCURATE CREATININE CLEARANCE IN PREDICTING GLOMERULAR FILTRATION RATE. ESTIMATED GFR IS NOT APPLICABLE FOR DIALYSIS PATIENTS. BASIC METABOLIC [id number] 05:54:00 Test Item Value Reference Range Comments SODIUM (BEAKER) (test 132 meq/L 136-145 ltzs=745) POTASSIUM (BEAKER) (test 4.0 meq/L 3.5-5.1 fbsr=651) CHLORIDE (BEAKER) (test 102 meq/L 98-107 jkpn=273) CO2 (BEAKER) (test 24 meq/L 22-29 khsx=201) BLOOD UREA NITROGEN 84 mg/dL 7-21 (BEAKER) (test jlbb=954) CREATININE (BEAKER) (test 2.09 mg/dL 0.57-1.25 tdln=805) GLUCOSE RANDOM (BEAKER) 99 mg/dL 70-105 (test uemk=713) CALCIUM (BEAKER) (test 8.0 mg/dL 8.4-10.2 pwyg=294) EGFR (BEAKER) (test 33 mL/min/1.73 sq m ESTIMATED GFR IS NOT lnuh=2144) ACCURATE CREATININE CLEARANCE IN PREDICTING GLOMERULAR FILTRATION RATE. ESTIMATED GFR IS NOT APPLICABLE FOR DIALYSIS PATIENTS. BILIRUBIN, [id number] 05:54:00 Test Item Value Reference Range Comments BILIRUBIN DIRECT (BEAKER) (test einv=919) 1.9 mg/dL 0.1-0.5 [id number] 05:53:00 Test Item Value Reference Range Comments PHOSPHORUS (BEAKER) (test nqni=055) 2.4 mg/dL 2.3-4.7 [id number] 05:40:00 Test Item Value Reference Range Comments AMMONIA (BEAKER) (test fllj=449) 50 mol/L 18-72 CALCIUM, [id number] 05:39:00 Test Item Value Reference Range Comments CALCIUM IONIZED (BEAKER) (test izxx=958) 0.98 mmol/L 1.12-1.27 PH, BLOOD (BEAKER) (test awwx=4087) 7.43 [id number] 05:34:00 Test Item Value Reference Range Comments PROTIME (BEAKER) (test jwcp=574) 19.2 seconds 11.7-14.7 INR (BEAKER) (test qijj=003) 1.6 <=5.9 PARTIAL THROMBOPLASTIN TIME (BEAKER) (test 39.4 seconds 22.5-36.0 hhuq=407) RECOMMENDED COUMADIN/WARFARIN INR THERAPY RANGESSTANDARD DOSE: 2.0 - 3.0 Includes: PROPHYLAXIS forvenous thrombosis, systemic embolization; TREATMENT for venous thrombosis and/or pulmonary embolus.HIGH RISK: Target INR is 2.5-3.5 for patients with mechanical heart valves.CBC W/PLT COUNT & AUTO [id number] 05:16:00 Test Item Value Reference Range Comments WHITE BLOOD CELL COUNT (BEAKER) (test kkyv=354) 10.0 K/ L 3.5-10.5 RED BLOOD CELL COUNT (BEAKER) (test xezf=779) 3.84 M/ L 4.63-6.08 HEMOGLOBIN (BEAKER) (test yjly=913) 12.0 GM/DL 13.7-17.5 HEMATOCRIT (BEAKER) (test eprc=425) 35.9 % 40.1-51.0 MEAN CORPUSCULAR VOLUME (BEAKER) (test efjo=264) 93.5 fL 79.0-92.2 MEAN CORPUSCULAR HEMOGLOBIN (BEAKER) (test 31.3 pg 25.7-32.2 uyci=400) MEAN CORPUSCULAR HEMOGLOBIN CONC (BEAKER) (test 33.4 GM/DL 32.3-36.5 shjz=344) RED CELL DISTRIBUTION WIDTH (BEAKER) (test 15.3 % 11.6-14.4 dxqd=091) PLATELET COUNT (BEAKER) (test orij=740) 46 K/CU MM 150-450 MEAN PLATELET VOLUME (BEAKER) (test wvfy=523) 10.4 fL 9.4-12.4 NUCLEATED RED BLOOD CELLS (BEAKER) (test 0 /100 WBC 0-0 svll=569) NEUTROPHILS RELATIVE PERCENT (BEAKER) (test 81 % znam=640) LYMPHOCYTES RELATIVE PERCENT (BEAKER) (test 8 % tkkv=930) MONOCYTES RELATIVE PERCENT (BEAKER) (test 9 % afvb=616) EOSINOPHILS RELATIVE PERCENT (BEAKER) (test 1 % kenx=915) BASOPHILS RELATIVE PERCENT (BEAKER) (test 0 % vslk=995) NEUTROPHILS ABSOLUTE COUNT (BEAKER) (test 8.01 K/ L 1.78-5.38 ueck=282) LYMPHOCYTES ABSOLUTE COUNT (BEAKER) (test 0.78 K/ L 1.32-3.57 zdnv=649) MONOCYTES ABSOLUTE COUNT (BEAKER) (test jdmz=172) 0.92 K/ L 0.30-0.82 EOSINOPHILS ABSOLUTE COUNT (BEAKER) (test 0.09 K/ L 0.04-0.54 iotu=938) BASOPHILS ABSOLUTE COUNT (BEAKER) (test ptdp=482) 0.01 K/ L 0.01-0.08 IMMATURE GRANULOCYTES-RELATIVE PERCENT (BEAKER) 1 % 0-1 (test qnur=8348) BLOOD CULTURE IDENTIFICATION [id number] 03:38:00 Test Item Value Reference Range Comments LISTERIA MONOCYTOGENES (test zzxz=3824244) Not detected Not detected STAPHYLOCOCCUS (test pmei=9539356) Not detected Not detected STAPHYLOCOCCUS AUREUS (test ipaz=5344502) Not detected Not detected STREPTOCOCCUS (test rmlk=7953963) Not detected Not detected STREPTOCOCCUS AGALACTIAE (GROUP B) (test Not detected Not detected qfbj=4112096) STREPTOCOCCUS PNEUMONIAE (test feoq=3049668) Not detected Not detected STREPTOCOCCUS PYOGENES (GROUP A) (test Not detected Not detected ehav=3422955) ACINETOBACTER BAUMANNII (test ygpv=8899121) Not detected Not detected HAEMOPHILUS INFLUENZAE (test bugz=9464283) Not detected Not detected NEISSERIA MENINGITIDIS (test tfjc=2786718) Not detected Not detected ENTEROBACTERIACEAE (test azwl=3406199) Not detected Not detected ENTEROBACTER CLOACOE COMPLEX (test Not detected Not detected aybr=0239014) KLEBSIELLA OXYTOCA (test rzrd=4535064) Not detected Not detected KLEBSIELLA PNEUMONIAE (test bmqh=7059) Not detected Not detected PROTEUS (test zupr=9117119) Not detected Not detected SERRATIA MARCESCENS (test gtsu=9376552) Not detected Not detected NIKITA ALBICANS (test izig=0507301) Not detected Not detected NIKITA GLABRATA (test kwes=4351556) Not detected Not detected NIKITA KRUSEI (test jwcc=2616107) Not detected Not detected NIKITA PARAPSILOSIS (test hwtr=8476556) Not detected Not detected NIKITA TROPICALIS (test rzqd=3150402) Not detected Not detected ESCHERICHIA COLI (test skha=7016187) Not detected Not detected METHICILLIN-RESISTANCE GENE (test oryy=5099257) Not detected VANCOMYCIN-RESISTANCE GENE (test zatj=9662598) Not detected CARBAPENEM-RESISTANCE GENE (test mlzr=7050553) Not detected ENTEROCOCCUS-BEAKER (test gkdp=7530634) Not detected Not detected PSEUDOMONAS AERUGINOSA-BEAKER (test Not detected Not detected zbgs=6402586) Other bacteria and resistance markers not targeted by this PCR panel cannot be excluded; therefore clinical correlation and follow up of serology, culture results, and other molecular studies is required. The results are not intended to be used as the sole means for clinical diagnosis or patient management decisions. This sample was tested at the [facility] using the GridX Blood Culture ID Panel. It is FDA cleared and has been verified and approved by the [facility] for clinical use. This laboratory is CLIA-certified and College ofAmerican Pathologists (CAP)-accredited to perform high complexity testing.POCT-GLUCOSE [id number] 00:04:00 Test Item Value Reference Range Comments POC-GLUCOSE METER (BEAKER) 128 mg/dL 70-110 TESTED AT [address] (test lbpz=7998) [place] [id number] BODY FLUID CELL COUNT WITH [id number] 18:55:00 Test Item Value Reference Range Comments APPEARANCE FLUID (BEAKER) (test djdn=078) Cloudy Clear COLOR FLUID (BEAKER) (test wugh=184) [place] Colorless, Straw RBC FLUID (BEAKER) (test kdbz=404) [address]17[address] /cu mm <=1 ADJUSTED WBC FLUID (BEAKER) (test qjdr=1488) 3910 /cu mm <=5 LINING CELLS (BEAKER) (test fjnl=8930) 0 /cu mm <=1 NEUTROPHILS FLUID (BEAKER) (test dgnr=7452) 87 % LYMPHS FLUID (BEAKER) (test ruqb=901) 3 % MONO/MACROPHAGE FLUID (BEAKER) (test btfm=818) 10 % EOSINOPHILS FLUID (BEAKER) (test yxzv=568) 0 % BASO FLUID (BEAKER) (test vohi=986) 0 % CONTAINER BODY FLUID (BEAKER) (test wtkk=5281) EDTA Tube Intracellular bacteria seen on stained smear.POCT-GLUCOSE [id number] 18:04: 00 Test Item Value Reference Range Comments POC-GLUCOSE METER (BEAKER) 119 mg/dL 70-110 TESTED AT [address] (test dtem=9844) [place] [id number] U/S, [id number] 17:02:00Reason for exam:->poss bile leakShould this be [...] sanguinous fluid was removed. Signed: Nadege Arriaga Verified Date/ Time: 08/02/2018 17:02:52 Reading Location: [facility] P006J Ultrasound Reading Room [id number] 13:04:00 Test Item Value Reference Range Comments MAGNESIUM (BEAKER) (test 3.0 mg/dL 1.6-2.6 Specimen slightly hemolyzed itpe=349) POCT-GLUCOSE [id number] 12:43:00 Test Item Value Reference Range Comments POC-GLUCOSE METER (BEAKER) 146 mg/dL 70-110 TESTED AT [address] (test ysqo=3825) [facility] [address] HEPATITIS C PCR, [id number] 08:53:00 Test Item Value Reference Range Comments HCV NUMERIC RESULT (BEAKER) (test lhpy=4049) [id number] IU/mL <15 This test uses a Real-Time Polymerase Chain Reaction (RT-PCR) methodology and was performed using JOY Ampliprep/JOY TaqMan HCV test kit version 2.0 ( [employer]).Reportable range for this assay is 15 - 100,000, 000 IU per mL (1.18 - 8.00 Log IU/mL).RAD, CHEST, 1 VIEW, NON [id number] 08: 35:00Reason for exam:->pleural effusion vs atelectasisShould this be performed at the bedside?->YesFINAL REPORT Portable chest. CLINICAL HISTORY: pleural effusion vs atelectasis. COMPARISON STUDY: Chest x-ray from yesterday. FINDINGS: The cardiac silhouette is unremarkable. The pulmonary parenchyma demonstrates atelectatic changes. A left PICC line remains. No pneumothorax isseen. Several old, healed left-sided rib fractures are seen. IMPRESSION: No significant change. Signed: Gideon Aiken MDReport Verified Date/Time: 08/02/2018 08:35:29 Reading Location: [facility] Radiology Reading Room Electronically signed by: GIDEON AIKEN M.D. on 08:35 AMURINALYSIS W/ [id number] 07:15:00 Test Item Value Reference Range Comments COLOR (BEAKER) (test wdcs=919) Yellow CLARITY (BEAKER) (test sbxj=023) Hazy SPECIFIC GRAVITY UA (BEAKER) (test 1.017 1.001-1.035 vktx=169) PH UA (BEAKER) (test emdi=338) 5.5 5.0-8.0 PROTEIN UA (BEAKER) (test jlfa=771) 20 mg/dL Negative GLUCOSE UA (BEAKER) (test bzqk=654) Negative Negative KETONES UA (BEAKER) (test bwyc=254) Negative Negative BILIRUBIN UA (BEAKER) (test vhrp=369) Negative Negative BLOOD UA (BEAKER) (test ocnf=576) Trace Negative NITRITE UA (BEAKER) (test eqfz=658) Negative Negative LEUKOCYTE ESTERASE UA (BEAKER) (test Small Negative twne=073) UROBILINOGEN UA (BEAKER) (test xtpe=597) 0.2 mg/dL 0.2-1.0 RBC UA (BEAKER) (test ukzm=730) 4 /HPF WBC UA (BEAKER) (test mcei=773) 17 /HPF BACTERIA (BEAKER) (test pjcp=249) Rare MUCUS (BEAKER) (test icsx=6977) Rare SQUAMOUS EPITHELIAL (BEAKER) (test 8 /HPF kxct=433) HYALINE CASTS (BEAKER) (test jfyb=569) 28 /LPF AMORPHOUS CRYSTALS (BEAKER) (test Occasional djri=3221) SOURCE(BEAKER) (test ivtl=6948) Urine, Clean Catch CALCIUM, [id number] 06:57:00 Test Item Value Reference Range Comments CALCIUM IONIZED (BEAKER) (test lbvu=103) 1.04 mmol/L 1.12-1.27 PH, BLOOD (BEAKER) (test ltcf=0521) 7.27 COMPREHENSIVE METABOLIC [id number] 06:43:00 Test Item Value Reference Range Comments TOTAL PROTEIN (BEAKER) 5.7 gm/dL 6.0-8.3 Specimen slightly (test efzu=288) hemolyzed ALBUMIN (BEAKER) (test 2.5 g/dL 3.5-5.0 Specimen slightly pyxw=6328) hemolyzed ALKALINE PHOSPHATASE 94 U/L 40-150 (BEAKER) (test eton=980) BILIRUBIN TOTAL (BEAKER) 2.6 mg/dL 0.2-1.2 Specimen slightly (test ygav=929) hemolyzed SODIUM (BEAKER) (test 132 meq/L 136-145 qjdp=296) POTASSIUM (BEAKER) (test 4.5 meq/L 3.5-5.1 Specimen slightly xmbe=025) hemolyzed CHLORIDE (BEAKER) (test 103 meq/L 98-107 qhbc=240) CO2 (BEAKER) (test 21 meq/L 22-29 jkqy=509) BLOOD UREA NITROGEN 90 mg/dL 7-21 (BEAKER) (test krxm=607) CREATININE (BEAKER) (test 2.79 mg/dL 0.57-1.25 Specimen slightly uonf=828) hemolyzed GLUCOSE RANDOM (BEAKER) 98 mg/dL 70-105 (test jkdg=777) CALCIUM (BEAKER) (test 8.1 mg/dL 8.4-10.2 qlyk=052) AST (SGOT) (BEAKER) (test 59 U/L 5-34 Specimen slightly xpkv=388) hemolyzed ALT (SGPT) (BEAKER) (test 40 U/L 6-55 Specimen slightly vjoz=111) hemolyzed EGFR (BEAKER) (test 24 mL/min/1.73 sq m ESTIMATED GFR IS NOT tqmw=5463) ACCURATE CREATININE CLEARANCE IN PREDICTING GLOMERULAR FILTRATION RATE. ESTIMATED GFR IS NOT APPLICABLE FOR DIALYSIS PATIENTS. BASIC METABOLIC [id number] 06:43:00 Test Item Value Reference Range Comments SODIUM (BEAKER) (test 132 meq/L 136-145 dkvx=792) POTASSIUM (BEAKER) (test 4.5 meq/L 3.5-5.1 Specimen slightly wwif=970) hemolyzed CHLORIDE (BEAKER) (test 103 meq/L 98-107 tway=390) CO2 (BEAKER) (test 21 meq/L 22-29 tdew=311) BLOOD UREA NITROGEN 90 mg/dL 7-21 (BEAKER) (test msea=506) CREATININE (BEAKER) (test 2.79 mg/dL 0.57-1.25 Specimen slightly kocc=299) hemolyzed GLUCOSE RANDOM (BEAKER) 98 mg/dL 70-105 (test toza=670) CALCIUM (BEAKER) (test 8.1 mg/dL 8.4-10.2 zalh=690) EGFR (BEAKER) (test 24 mL/min/1.73 sq m ESTIMATED GFR IS NOT vsyq=2950) ACCURATE CREATININE CLEARANCE IN PREDICTING GLOMERULAR FILTRATION RATE. ESTIMATED GFR IS NOT APPLICABLE FOR DIALYSIS PATIENTS. [id number] 06:42:00 Test Item Value Reference Range Comments MAGNESIUM (BEAKER) (test 3.2 mg/dL 1.6-2.6 Specimen slightly hemolyzed rqva=044) [id number] 06:42:00 Test Item Value Reference Range Comments PHOSPHORUS (BEAKER) (test 4.1 mg/dL 2.3-4.7 Specimen slightly hemolyzed voei=131) BILIRUBIN, [id number] 06:42:00 Test Item Value Reference Range Comments BILIRUBIN DIRECT (BEAKER) (test 1.7 mg/dL 0.1-0.5 Specimen slightly hemolyzed orxj=867) CREATINE KINASE (CK)2018-08-02 06:42:00 Test Item Value Reference Range Comments CREATINE KINASE TOTAL (BEAKER) (test fnmz=171) 114 U/L 29-200 B-TYPE NATRIURETIC FACTOR (BNP)2018-08-02 06:37:00 Test Item Value Reference Range Comments B-TYPE NATRIURETIC PEPTIDE (BEAKER) (test 127 pg/mL 0-100 ahor=550) [id number] 06:27:00 Test Item Value Reference Range Comments PROTIME (BEAKER) (test dicu=707) 17.0 seconds 11.7-14.7 INR (BEAKER) (test gywv=803) 1.4 <=5.9 PARTIAL THROMBOPLASTIN TIME (BEAKER) (test 36.8 seconds 22.5-36.0 kfqd=764) RECOMMENDED COUMADIN/WARFARIN INR THERAPY RANGESSTANDARD DOSE: 2.0 - 3.0 Includes: PROPHYLAXIS forvenous thrombosis, systemic embolization; TREATMENT for venous thrombosis and/or pulmonary embolus.HIGH RISK: Target INR is 2.5-3.5 for patients with mechanical heart valves.CBC W/PLT COUNT & AUTO [id number] 06:24:00 Test Item Value Reference Range Comments WHITE BLOOD CELL COUNT (BEAKER) (test hbyq=973) 15.6 K/ L 3.5-10.5 RED BLOOD CELL COUNT (BEAKER) (test hfcz=119) 4.44 M/ L 4.63-6.08 HEMOGLOBIN (BEAKER) (test vpfc=174) 14.0 GM/DL 13.7-17.5 HEMATOCRIT (BEAKER) (test eymi=347) 42.3 % 40.1-51.0 MEAN CORPUSCULAR VOLUME (BEAKER) (test hsar=461) 95.3 fL 79.0-92.2 MEAN CORPUSCULAR HEMOGLOBIN (BEAKER) (test 31.5 pg 25.7-32.2 djtw=299) MEAN CORPUSCULAR HEMOGLOBIN CONC (BEAKER) (test 33.1 GM/DL 32.3-36.5 kasg=872) RED CELL DISTRIBUTION WIDTH (BEAKER) (test 15.6 % 11.6-14.4 lxrn=055) PLATELET COUNT (BEAKER) (test vxkn=031) 63 K/CU MM 150-450 MEAN PLATELET VOLUME (BEAKER) (test kkjd=682) 10.0 fL 9.4-12.4 NUCLEATED RED BLOOD CELLS (BEAKER) (test 0 /100 WBC 0-0 earf=333) NEUTROPHILS RELATIVE PERCENT (BEAKER) (test 85 % ccym=477) LYMPHOCYTES RELATIVE PERCENT (BEAKER) (test 5 % eajj=037) MONOCYTES RELATIVE PERCENT (BEAKER) (test 9 % npsn=576) EOSINOPHILS RELATIVE PERCENT (BEAKER) (test 0 % vvhl=071) BASOPHILS RELATIVE PERCENT (BEAKER) (test 0 % jmsw=697) NEUTROPHILS ABSOLUTE COUNT (BEAKER) (test 13.23 K/ L 1.78-5.38 dhhn=863) LYMPHOCYTES ABSOLUTE COUNT (BEAKER) (test 0.73 K/ L 1.32-3.57 kgjc=417) MONOCYTES ABSOLUTE COUNT (BEAKER) (test hzqv=605) 1.39 K/ L 0.30-0.82 EOSINOPHILS ABSOLUTE COUNT (BEAKER) (test 0.04 K/ L 0.04-0.54 qexz=800) BASOPHILS ABSOLUTE COUNT (BEAKER) (test bkyb=387) 0.04 K/ L 0.01-0.08 IMMATURE GRANULOCYTES-RELATIVE PERCENT (BEAKER) 1 % 0-1 (test cqlx=6537) POCT-GLUCOSE [id number] 06:23:00 Test Item Value Reference Range Comments POC-GLUCOSE METER (BEAKER) 125 mg/dL 70-110 TESTED AT [address] (test gqza=9882) [place] [address] CREATININE, RANDOM [id number] 06:01:00 Test Item Value Reference Range Comments CREATININE URINE (BEAKER) (test tuyx=939) 110.8 mg/dL Reference Range: No NormalsPROTEIN, RANDOM [id number] 06:01:00 Test Item Value Reference Range Comments PROTEIN, URINE (BEAKER) (test vgxv=9721) 33 mg/dL 0-14 POCT-GLUCOSE [id number] 05:48:00 Test Item Value Reference Range Comments POC-GLUCOSE METER (BEAKER) 115 mg/dL 70-110 TESTED AT [address] (test zvyi=3742) [place] [id number] BASIC METABOLIC [id number] 18:13:00 Test Item Value Reference Range Comments SODIUM (BEAKER) (test 134 meq/L 136-145 welm=619) POTASSIUM (BEAKER) (test 4.2 meq/L 3.5-5.1 hell=769) CHLORIDE (BEAKER) (test 104 meq/L 98-107 uzjw=581) CO2 (BEAKER) (test 22 meq/L 22-29 nkxt=435) BLOOD UREA NITROGEN 90 mg/dL 7-21 (BEAKER) (test uncf=869) CREATININE (BEAKER) (test 3.06 mg/dL 0.57-1.25 xscf=602) GLUCOSE RANDOM (BEAKER) 130 mg/dL 70-105 (test dbmw=805) CALCIUM (BEAKER) (test 8.1 mg/dL 8.4-10.2 dnyq=774) EGFR (BEAKER) (test 21 mL/min/1.73 sq m ESTIMATED GFR IS NOT guds=0681) ACCURATE CREATININE CLEARANCE IN PREDICTING GLOMERULAR FILTRATION RATE. ESTIMATED GFR IS NOT APPLICABLE FOR DIALYSIS PATIENTS. [id number] 18:05:00 Test Item Value Reference Range Comments MAGNESIUM (BEAKER) (test phew=657) 2.9 mg/dL 1.6-2.6 RAD, CHEST, 1 VIEW, NON [id number] 17:57:00Reason for exam:->picc repositionShould this be performed [...] MDReport Verified Date/Time: 08/01/2018 17:57:36 Reading Location: [facility] Radiology Reading Room POCT-GLUCOSE [id number] 17:36:00 Test Item Value Reference Range Comments POC-GLUCOSE METER (BEAKER) 140 mg/dL 70-110 TESTED AT [facility] [address] [address] (test oigj=1449) [facility] [address] POCT-GLUCOSE [id number] 17:35:00 Test Item Value Reference Range Comments POC-GLUCOSE METER (BEAKER) 137 mg/dL 70-110 TESTED AT [facility] [address] (test pixn=8267) [place] [id number] SURGICALLY OBTAINED CULTURE + GRAM [id number] 15:10:00 Test Item Value Reference Range Comments CULTURE (BEAKER) (test ESCHERICHIA COLI <1+ Escherichia coli jpkr=6722) Amikacin (test code=1) Ampicillin + Sulbactam (test code=6) Aztreonam (test code=32) Cefepime (test code=51) Cefoxitin (test code=68) Ceftazidime (test code=27) Ceftriaxone (test code=52) Ertapenem (test code=38) Gentamicin (test code=18) Levofloxacin (test code=22) Meropenem (test code=34) Nitrofurantoin (test code=23) Piperacillin + Tazobactam (test code=29) Tetracycline (test code=2) Tobramycin (test code=25) Trimethoprim + Sulfamethoxazole (test code=47) GRAM STAIN RESULT (BEAKER) <1+ White blood cells (test tsjo=8408) seen GRAM STAIN RESULT (BEAKER) No organisms seen (test ychz=115885) POCT-GLUCOSE [id number] 12:06:00 Test Item Value Reference Range Comments POC-GLUCOSE METER (BEAKER) 135 mg/dL 70-110 TESTED AT [address] (test vfvm=7564) [facility] [address] [place] TITER AND [id number] 10:10:00 Test Item Value Reference Range Comments JU[place] TITER (BEAKER) (test rjce=0053) :160 [place] PATTERN (BEAKER) (test mjjj=2281) Speckled ANTI-NUCLEAR ANTIBODY (JUAN DIEGO)2018-08-01 10:09:00 Test Item Value Reference Range Comments ANTI-NUCLEAR ANTIBODY ([place]IEGO) (BEAKER) (test Positive Negative gkzq=884) Test performed by IFA method.CBC W/PLT COUNT & AUTO [id number] 08:55:00 Test Item Value Reference Range Comments WHITE BLOOD CELL COUNT (BEAKER) (test ttix=399) 14.9 K/ L 3.5-10.5 RED BLOOD CELL COUNT (BEAKER) (test lalk=253) 4.25 M/ L 4.63-6.08 HEMOGLOBIN (BEAKER) (test yanv=722) 13.5 GM/DL 13.7-17.5 HEMATOCRIT (BEAKER) (test tiet=663) 40.2 % 40.1-51.0 MEAN CORPUSCULAR VOLUME (BEAKER) (test budi=037) 94.6 fL 79.0-92.2 MEAN CORPUSCULAR HEMOGLOBIN (BEAKER) (test 31.8 pg 25.7-32.2 ybgu=826) MEAN CORPUSCULAR HEMOGLOBIN CONC (BEAKER) (test 33.6 GM/DL 32.3-36.5 ekbn=786) RED CELL DISTRIBUTION WIDTH (BEAKER) (test 15.4 % 11.6-14.4 lzpr=890) PLATELET COUNT (BEAKER) (test vjxp=530) 74 K/CU MM 150-450 MEAN PLATELET VOLUME (BEAKER) (test ejvg=687) 10.3 fL 9.4-12.4 NUCLEATED RED BLOOD CELLS (BEAKER) (test 0 /100 WBC 0-0 rkeo=303) (CELLAVISION MANUAL DIFF)2018-08-01 08:55:00 Test Item Value Reference Range Comments NEUTROPHILS - REL (CELLAVISION)(BEAKER) (test 90 % rtmo=4549) LYMPHOCYTES - REL (CELLAVISION)(BEAKER) (test 1 % dids=2814) MONOCYTES - REL (CELLAVISION)(BEAKER) (test 4 % erth=0527) BANDS - REL (CELLAVISION)(BEAKER) (test 5 % 0-10 hxeb=8586) NEUTROPHILS - ABS (CELLAVISION)(BEAKER) (test 13.41 K/ul 1.78-5.38 pqfo=1281) LYMPHOCYTES - ABS (CELLAVISION)(BEAKER) (test 0.15 K/ul 1.32-3.57 ckjz=3203) MONOCYTES - ABS (CELLAVISION)(BEAKER) (test 0.60 K/uL 0.30-0.82 pjwz=5827) BANDS - ABS (CELLAVISION)(BEAKER) (test 0.75 K/uL 0.00-0.80 beay=4902) TOTAL COUNTED (BEAKER) (test lvea=9208) 100 WBC MORPHOLOGY (BEAKER) (test rhgu=578) Normal PLT MORPHOLOGY (BEAKER) (test oloc=184) Normal ANISOCYTOSIS (BEAKER) (test wezf=066) 2+ moderate MACROCYTES (BEAKER) (test nikl=720) 2+ moderate POIKILOCYTES (BEAKER) (test bexe=929) 2+ moderate ABBI CELLS (BEAKER) (test nxkn=100) 1+ few ARTIFACT (CELLAVISION)(BEAKER) (test elqe=1508) Present PLATELET CONCENTRATION (CELLAVISION)(BEAKER) Decreased (test opgj=2614) Received comment: User comments: Slide comments:RAD, CHEST, 1 VIEW, NON [id number] 08:44:00Reason for exam:->pleural effusion vs atelectasisShould this [...] above. Otherwise, noacute cardiopulmonary abnormalities. Signed: Efren Rosas MDReport Verified Date/ Time: 08/01/2018 08:44:53 Reading Location: [facility] Radiology Reading Room POCT-GLUCOSE [id number] 06:35:00 Test Item Value Reference Range Comments POC-GLUCOSE METER (BEAKER) 133 mg/dL 70-110 TESTED AT [facility] [address] [facility] (test pqle=1441) [facility] [address] CALCIUM, [id number] 06:28:00 Test Item Value Reference Range Comments CALCIUM IONIZED (BEAKER) (test ozuh=370) 1.11 mmol/L 1.12-1.27 PH, BLOOD (BEAKER) (test fhzt=6288) 7.30 HEPATITIS B CORE ANTIBODY, [id number] 06:19:00 Test Item Value Reference Range Comments HEPATITIS B CORE TOTAL ANTIBODY (BEAKER) (test Reactive Nonreactive rssp=016) COMPREHENSIVE METABOLIC [id number] 05:12:00 Test Item Value Reference Range Comments TOTAL PROTEIN (BEAKER) 4.8 gm/dL 6.0-8.3 (test frin=327) ALBUMIN (BEAKER) (test 2.2 g/dL 3.5-5.0 rkst=4948) ALKALINE PHOSPHATASE 77 U/L 40-150 (BEAKER) (test jnzj=578) BILIRUBIN TOTAL (BEAKER) 2.6 mg/dL 0.2-1.2 (test gyco=373) SODIUM (BEAKER) (test 133 meq/L 136-145 mekp=991) POTASSIUM (BEAKER) (test 3.8 meq/L 3.5-5.1 aube=088) CHLORIDE (BEAKER) (test 102 meq/L 98-107 xnzk=465) CO2 (BEAKER) (test 21 meq/L 22-29 bmgv=550) BLOOD UREA NITROGEN 88 mg/dL 7-21 (BEAKER) (test ptbi=474) CREATININE (BEAKER) (test 3.36 mg/dL 0.57-1.25 hksm=868) GLUCOSE RANDOM (BEAKER) 118 mg/dL 70-105 (test qjhd=516) CALCIUM (BEAKER) (test 8.1 mg/dL 8.4-10.2 neus=063) AST (SGOT) (BEAKER) (test 70 U/L 5-34 zfeq=483) ALT (SGPT) (BEAKER) (test 45 U/L 6-55 derg=186) EGFR (BEAKER) (test 19 mL/min/1.73 sq m ESTIMATED GFR IS NOT flqr=5249) ACCURATE CREATININE CLEARANCE IN PREDICTING GLOMERULAR FILTRATION RATE. ESTIMATED GFR IS NOT APPLICABLE FOR DIALYSIS PATIENTS. [id number] 05:05:00 Test Item Value Reference Range Comments PHOSPHORUS (BEAKER) (test tccr=716) 5.6 mg/dL 2.3-4.7 [id number] 05:05:00 Test Item Value Reference Range Comments MAGNESIUM (BEAKER) (test vkos=177) 2.9 mg/dL 1.6-2.6 BILIRUBIN, [id number] 05:05:00 Test Item Value Reference Range Comments BILIRUBIN DIRECT (BEAKER) (test hwlg=899) 2.0 mg/dL 0.1-0.5 LACTIC ACID, VENOUS, WHOLE [id number] 04:48:00 Test Item Value Reference Range Comments LACTATE BLOOD VENOUS (2) (BEAKER) (test 1.3 mmol/L 0.5-2.2 ydtc=5702) [id number] 04:46:00 Test Item Value Reference Range Comments PROTIME (BEAKER) (test bnnk=904) 18.4 seconds 11.7-14.7 INR (BEAKER) (test ntps=519) 1.5 <=5.9 PARTIAL THROMBOPLASTIN TIME (BEAKER) (test 36.5 seconds 22.5-36.0 syht=010) RECOMMENDED COUMADIN/WARFARIN INR THERAPY RANGESSTANDARD DOSE: 2.0 - 3.0 Includes: PROPHYLAXIS forvenous thrombosis, systemic embolization; TREATMENT for venous thrombosis and/or pulmonary embolus.HIGH RISK: Target INR is 2.5-3.5 for patients with mechanical heart valves.HEPATITIS B SURFACE [id number] 03:55:00 Test Item Value Reference Range Comments HEPATITIS B SURFACE ANTIBODY (BEAKER) (test < mIU/mL <8.0 eaxs=324) BASIC METABOLIC [id number] 02:50:00 Test Item Value Reference Range Comments SODIUM (BEAKER) (test 131 meq/L 136-145 lxdv=508) POTASSIUM (BEAKER) (test 3.8 meq/L 3.5-5.1 frzc=434) CHLORIDE (BEAKER) (test 100 meq/L 98-107 sxin=514) CO2 (BEAKER) (test 21 meq/L 22-29 mmho=375) BLOOD UREA NITROGEN 85 mg/dL 7-21 (BEAKER) (test dsgr=137) CREATININE (BEAKER) (test 3.38 mg/dL 0.57-1.25 rohe=827) GLUCOSE RANDOM (BEAKER) 128 mg/dL 70-105 (test ksig=794) CALCIUM (BEAKER) (test 7.9 mg/dL 8.4-10.2 iktt=295) EGFR (BEAKER) (test 19 mL/min/1.73 sq m ESTIMATED GFR IS NOT urce=4351) ACCURATE CREATININE CLEARANCE IN PREDICTING GLOMERULAR FILTRATION RATE. ESTIMATED GFR IS NOT APPLICABLE FOR DIALYSIS PATIENTS. Specimen slightly ictericPOCT-GLUCOSE [id number] 01:55:00 Test Item Value Reference Range Comments POC-GLUCOSE METER (BEAKER) 141 mg/dL 70-110 TESTED AT [place] [address] [facility] (test hdkn=2602) [place] [id number] TROPONIN [id number] 01:09:00 Test Item Value Reference Range Comments TROPONIN I (BEAKER) (test mtup=882) 0.01 ng/mL 0.00-0.03 Troponin I (TnI) levels [...] disease, and persistent tachyarrhythmia.ALPHA FETOPROTEIN (AFP), TUMOR [id number] 01:09:00 Test Item Value Reference Range Comments ALPHA-FETOPROTEIN (BEAKER) (test lemu=3306) 8541.3 ng/mL <10.0 POCT-GLUCOSE [id number] 00:08:00 Test Item Value Reference Range Comments POC-GLUCOSE METER ([employer]) 122 mg/dL 70-110 TESTED AT [address] (test odni=7067) [place] [id number] 22:55:00 Test Item Value Reference Range Comments TRIGLYCERIDES (BEAKER) (test ojku=226) 53 mg/dL TRIGLYCERIDE REFERENCE RANGELow Risk <150Borderline Risk 150-199High Risk 200-499Very High Risk>=500Specimen slightly ictericC-REACTIVE [id number] 22:55:00 Test Item Value Reference Range Comments C-REACTIVE PROTEIN (BEAKER) (test ajhn=450) 20.08 mg/dL 0.00-0.50 CARCINOEMBRYONIC ANTIGEN (CEA)2018-07-31 22:48:00 Test Item Value Reference Range Comments CARCINOEMBRYONIC ANTIGEN (BEAKER) (test cfyj=471) 1.9 ng/mL 0.0-5.0 HEPATITIS A ANTIBODY, [id number] 22:48:00 Test Item Value Reference Range Comments HEPATITIS A IGG ANTIBODY (BEAKER) (test Nonreactive Nonreactive wnxn=7731) HEPATITIS B SURFACE [id number] 22:43:00 Test Item Value Reference Range Comments HEPATITIS B SURFACE ANTIGEN (2) (BEAKER) (test Nonreactive Nonreactive chbu=5989) [id number] 22:23:00 Test Item Value Reference Range Comments ALPHA-1 ANTITRYPSIN (BEAKER) (test mbbn=564) 258.30 mg/dL 90.00-200.00 LACTIC ACID, ARTERIAL, WHOLE [id number] 22:05:00 Test Item Value Reference Range Comments LACTATE BLOOD ARTERIAL (2) (BEAKER) (test 1.4 mmol/L 0.5-2.2 dtvn=2512) POCT-GLUCOSE [id number] 19:22:00 Test Item Value Reference Range Comments POC-GLUCOSE METER (BEAKER) 101 mg/dL 70-110 TESTED AT [facility] [address] [facility] (test yvqg=4413) [facility] [address] IRON, TIBC, % SAT. (WITHOUT FERRITIN)2018-07-31 18:03:00 Test Item Value Reference Range Comments IRON (BEAKER) (test eygd=472) 10.0 ug/dL 40.0-160.0 TOTAL IRON BINDING CAPACITY (BEAKER) (test 83 ug/dL 250-450 gbcp=060) IRON % SATURATION (2) (BEAKER) (test vlfl=7790) 12 % 20-55 LACTIC ACID, ARTERIAL, WHOLE [id number] 17:56:00 Test Item Value Reference Range Comments LACTATE BLOOD ARTERIAL (2) 1.8 mmol/L 0.5-2.2 Specimen slightly hemolyzed (BEAKER) (test ovsv=2199) [id number] 17:10:00 Test Item Value Reference Range Comments FERRITIN (BEAKER) (test kiox=560) 485 ng/mL 5-275 U/S, ABDOMINAL, WITH [id number] 17:05:00Reason for exam:->cirrhosis Should this be performed [...] MDReport Verified Date/Time: 07/31/2018 17:05:57 Reading Location: [facility] C013X Ortho Consult Reading Room 05: 05 PMVANCOMYCIN LEVEL, [id number] 16:50:00 Test Item Value Reference Range Comments VANCOMYCIN TROUGH (BEAKER) (test yqqn=709) 40.6 ug/mL 10.0-20.0 [id number] 16:41:00 Test Item Value Reference Range Comments MAGNESIUM (BEAKER) (test pxjl=752) 2.5 mg/dL 1.6-2.6 RAD, CHEST, 1 VIEW, NON [id number] 16:05:00Reason for exam:->PICC LINE PLACEMENTShould this be performed at the bedside?->YesFINAL REPORT Comparison: 07/31/2018 at 4:17 AM TECHNIQUE: Single view of the chest FINDINGS: Tip of the recently placed left PICC line projects at the cavoatrial junction. Endotracheal tube has been removed. No other significant change. Signed: Armen Peckeport Verified Date/Time: 07/31/2018 16:05:05 Reading Location: [facility] B1 C013W Consult Reading Room OSMOLALITY, [id number] 15:05: 00 Test Item Value Reference Range Comments OSMOLALITY URINE (BEAKER) (test pgaz=770) 379 mOsm/kg 40-1,400 SODIUM, RANDOM [id number] 13:13:00 Test Item Value Reference Range Comments SODIUM URINE (BEAKER) (test kdgz=445) < meq/L Reference Range: No NormalsCREATININE, RANDOM [id number] 13:07:00 Test Item Value Reference Range Comments CREATININE URINE (BEAKER) (test klbr=675) 166.7 mg/dL Reference Range: No NormalsUREA NITROGEN, RANDOM [id number] 13:07:00 Test Item Value Reference Range Comments UREA NITROGEN URINE (BEAKER) (test qbhp=578) 464 mg/dL Reference Range: No NormalsPOCT-GLUCOSE [id number] 12:11:00 Test Item Value Reference Range Comments POC-GLUCOSE METER (BEAKER) 110 mg/dL 70-110 TESTED AT [facility] [address] [facility] (test furi=1577) [facility] [address] OSMOLALITY, [id number] 11:25:00 Test Item Value Reference Range Comments OSMOLALITY, SERUM (BEAKER) (test evjt=029) 301 mOsm/kg 275-295 BASIC METABOLIC [id number] 10:31:00 Test Item Value Reference Range Comments SODIUM (BEAKER) (test 128 meq/L 136-145 ispz=257) POTASSIUM (BEAKER) (test 4.4 meq/L 3.5-5.1 Specimen slightly ycsp=925) hemolyzed CHLORIDE (BEAKER) (test 100 meq/L 98-107 orrg=063) CO2 (BEAKER) (test 17 meq/L 22-29 fuio=869) BLOOD UREA NITROGEN 76 mg/dL 7-21 (BEAKER) (test lnxo=619) CREATININE (BEAKER) (test 3.38 mg/dL 0.57-1.25 Specimen slightly lsdc=565) hemolyzed GLUCOSE RANDOM (BEAKER) 111 mg/dL 70-105 (test vmmh=622) CALCIUM (BEAKER) (test 7.8 mg/dL 8.4-10.2 paxt=486) EGFR (BEAKER) (test 19 mL/min/1.73 sq m ESTIMATED GFR IS NOT htbn=1078) ACCURATE CREATININE CLEARANCE IN PREDICTING GLOMERULAR FILTRATION RATE. ESTIMATED GFR IS NOT APPLICABLE FOR DIALYSIS PATIENTS. Specimen slightly ictericHEPATIC FUNCTION [id number] 10:27:00 Test Item Value Reference Range Comments TOTAL PROTEIN (BEAKER) (test mqrz=647) 5.1 gm/dL 6.0-8.3 ALBUMIN (BEAKER) (test wnjd=1571) 2.5 g/dL 3.5-5.0 BILIRUBIN TOTAL (BEAKER) (test dybl=561) 3.2 mg/dL 0.2-1.2 BILIRUBIN DIRECT (BEAKER) (test vpqu=411) 2.5 mg/dL 0.1-0.5 ALKALINE PHOSPHATASE (BEAKER) (test rxog=888) 72 U/L 40-150 AST (SGOT) (BEAKER) (test tkdu=046) 87 U/L 5-34 ALT (SGPT) (BEAKER) (test ldzg=300) 51 U/L 6-55 Specimen slightly ictericLACTIC ACID, ARTERIAL, WHOLE [id number] 10:22:00 Test Item Value Reference Range Comments LACTATE BLOOD ARTERIAL (2) (BEAKER) (test 2.1 mmol/L 0.5-2.2 xxlq=9876) Specimen slightly ictericRAD, CHEST, 1 VIEW, NON [id number] 08:05:00Reason for exam:->Intubated patientShould this be performed at the bedside?-> YesFINAL REPORT Chest, one view HISTORY: Respiratory failure Comparison: 07/30/2018 Findings: There may be small bilateral pleural effusions. The underlying lungs appear clear. The heart is normal in size. Feeding tube terminates below the diaphragm. Satisfactory endotracheal tube position. IMPRESSION: No significant interval change. Signed: Ccuo Pastrana MDReport Verified Date/Time: 07/31/2018 08:05:10 Reading Location: [facility] C0X Ortho Consult Reading Room CBC W/PLT COUNT & AUTO [id number] 08:03 :00 Test Item Value Reference Range Comments WHITE BLOOD CELL COUNT (BEAKER) (test qbkt=153) 17.3 K/ L 3.5-10.5 RED BLOOD CELL COUNT (BEAKER) (test gbfq=544) 4.54 M/ L 4.63-6.08 HEMOGLOBIN (BEAKER) (test bcaa=789) 14.3 GM/DL 13.7-17.5 HEMATOCRIT (BEAKER) (test zbaw=272) 42.5 % 40.1-51.0 MEAN CORPUSCULAR VOLUME (BEAKER) (test nogb=840) 93.6 fL 79.0-92.2 MEAN CORPUSCULAR HEMOGLOBIN (BEAKER) (test 31.5 pg 25.7-32.2 vkcn=980) MEAN CORPUSCULAR HEMOGLOBIN CONC (BEAKER) (test 33.6 GM/DL 32.3-36.5 vazl=801) RED CELL DISTRIBUTION WIDTH (BEAKER) (test 15.1 % 11.6-14.4 odkd=902) PLATELET COUNT (BEAKER) (test zeou=416) 110 K/CU MM 150-450 MEAN PLATELET VOLUME (BEAKER) (test miwv=622) 10.8 fL 9.4-12.4 NUCLEATED RED BLOOD CELLS (BEAKER) (test 0 /100 WBC 0-0 tebd=109) (CELLAVISION MANUAL DIFF)2018-07-31 08:03:00 Test Item Value Reference Range Comments NEUTROPHILS - REL (CELLAVISION)(BEAKER) (test 77 % evul=7180) LYMPHOCYTES - REL (CELLAVISION)(BEAKER) (test 2 % eirq=5230) MONOCYTES - REL (CELLAVISION)(BEAKER) (test 3 % fmli=2390) EOSINOPHILS - REL (CELLAVISION)(BEAKER) (test 1 % zqlb=0062) BANDS - REL (CELLAVISION)(BEAKER) (test 17 % 0-10 besm=2004) NEUTROPHILS - ABS (CELLAVISION)(BEAKER) (test 13.32 K/ul 1.78-5.38 peyp=4443) LYMPHOCYTES - ABS (CELLAVISION)(BEAKER) (test 0.35 K/ul 1.32-3.57 sghm=7289) MONOCYTES - ABS (CELLAVISION)(BEAKER) (test 0.52 K/uL 0.30-0.82 qenm=2694) EOSINOPHILS - ABS (CELLAVISION)(BEAKER) (test 0.17 K/uL 0.04-0.54 viru=8087) BANDS - ABS (CELLAVISION)(BEAKER) (test 2.94 K/uL 0.00-0.80 vcwm=2415) TOTAL COUNTED (BEAKER) (test aogj=1348) 100 WBC MORPHOLOGY (BEAKER) (test dzou=308) Normal PLT MORPHOLOGY (BEAKER) (test xcrn=341) Normal ANISOCYTOSIS (BEAKER) (test vaiz=197) 1+ few MACROCYTES (BEAKER) (test gztt=914) 1+ few POIKILOCYTES (BEAKER) (test saxk=911) 1+ few ABBI CELLS (BEAKER) (test swfb=488) 1+ few ARTIFACT (CELLAVISION)(BEAKER) (test emsi=4024) Present PLATELET CONCENTRATION (CELLAVISION)(BEAKER) Decreased (test sdgl=5912) Received comment: User comments: Slide comments:BLOOD GAS, [id number] 07 :09:00 Test Item Value Reference Range Comments PH ARTERIAL (BEAKER) (test yeew=431) 7.35 7.35-7.45 PCO2 ARTERIAL (BEAKER) (test oxxy=358) 36 mmHg 35-45 PO2 ARTERIAL (BEAKER) (test nxhv=613) 140 mmHg 80-90 O2 SATURATION ARTERIAL (BEAKER) (test mevg=470) 98.7 % 96.0-97.0 HCO3 ARTERIAL (BEAKER) (test viqs=974) 19 mmol/L 21-29 BASE EXCESS ARTERIAL (BEAKER) (test cxrf=344) -5.6 mmol/L -2.0-3.0 PATIENT TEMPERATURE (BEAKER) (test ycxv=6074) 37.0 C FIO2 (BEAKER) (test cxuy=7965) 21.0 % [id number] 05:25:00 Test Item Value Reference Range Comments PREALBUMIN (BEAKER) (test xcxk=743) 4 mg/dL 14-45 [id number] 04:43:00 Test Item Value Reference Range Comments PROTIME (BEAKER) (test uuyk=292) 18.8 seconds 11.7-14.7 INR (BEAKER) (test nbyo=224) 1.6 <=5.9 PARTIAL THROMBOPLASTIN TIME (BEAKER) (test 35.2 seconds 22.5-36.0 tdnr=653) RECOMMENDED COUMADIN/WARFARIN INR THERAPY RANGESSTANDARD DOSE: 2.0 - 3.0 Includes: PROPHYLAXIS forvenous thrombosis, systemic embolization; TREATMENT for venous thrombosis and/or pulmonary embolus.HIGH RISK: Target INR is 2.5-3.5 for patients with mechanical heart valves.LACTIC ACID, ARTERIAL, WHOLE [id number] 04:42:00 Test Item Value Reference Range Comments LACTATE BLOOD ARTERIAL (2) (BEAKER) (test 2.4 mmol/L 0.5-2.2 gbbx=2087) [id number] 04:37:00 Test Item Value Reference Range Comments PHOSPHORUS (BEAKER) (test sfgw=496) 6.9 mg/dL 2.3-4.7 [id number] 04:37:00 Test Item Value Reference Range Comments MAGNESIUM (BEAKER) (test lpdw=413) 2.1 mg/dL 1.6-2.6 [id number] 04:37:00 Test Item Value Reference Range Comments ALBUMIN (BEAKER) (test tdkr=2825) 2.6 g/dL 3.5-5.0 BASIC METABOLIC [id number] 04:37:00 Test Item Value Reference Range Comments SODIUM (BEAKER) (test 128 meq/L 136-145 nkqw=153) POTASSIUM (BEAKER) (test 4.3 meq/L 3.5-5.1 jaux=753) CHLORIDE (BEAKER) (test 98 meq/L 98-107 sfwp=764) CO2 (BEAKER) (test 19 meq/L 22-29 izhf=050) BLOOD UREA NITROGEN 72 mg/dL 7-21 (BEAKER) (test bgxv=627) CREATININE (BEAKER) (test 3.21 mg/dL 0.57-1.25 bweo=663) GLUCOSE RANDOM (BEAKER) 112 mg/dL 70-105 (test gfmr=446) CALCIUM (BEAKER) (test 8.0 mg/dL 8.4-10.2 zpvl=651) EGFR (BEAKER) (test 20 mL/min/1.73 sq m ESTIMATED GFR IS NOT eklk=9772) ACCURATE CREATININE CLEARANCE IN PREDICTING GLOMERULAR FILTRATION RATE. ESTIMATED GFR IS NOT APPLICABLE FOR DIALYSIS PATIENTS. Specimen slightly ictericBLOOD GAS, [id number] 04:36:00 Test Item Value Reference Range Comments PH ARTERIAL (BEAKER) (test vefh=246) 7.32 7.35-7.45 PCO2 ARTERIAL (BEAKER) (test drhl=987) 41 mmHg 35-45 PO2 ARTERIAL (BEAKER) (test xbdm=976) 151 mmHg 80-90 O2 SATURATION ARTERIAL (BEAKER) (test urjo=989) 98.8 % 96.0-97.0 HCO3 ARTERIAL (BEAKER) (test vehe=837) 20 mmol/L 21-29 BASE EXCESS ARTERIAL (BEAKER) (test tvuc=774) -5.6 mmol/L -2.0-3.0 PATIENT TEMPERATURE (BEAKER) (test wkws=0615) 37.0 C FIO2 (BEAKER) (test wzmw=5856) 40.0 % CALCIUM, [id number] 04:36:00 Test Item Value Reference Range Comments CALCIUM IONIZED (BEAKER) (test qtjm=667) 1.01 mmol/L 1.12-1.27 PH, BLOOD (BEAKER) (test davh=2851) 7.32 BLOOD CULTURE IDENTIFICATION [id number] 03:17:00 Test Item Value Reference Range Comments LISTERIA MONOCYTOGENES (test Not detected Not detected ruks=2081597) STAPHYLOCOCCUS (test Detected Not detected First line therapy: hkjp=0189447) Cefazolin, Nafcillin (Nafcillin preferred for Central Nervous System infection) Coagulase Negative Staphylococcus (CoNS) DETECTEDmecA NOT DETECTEDReference Range: Not Detected STAPHYLOCOCCUS AUREUS (test Not detected Not detected hsrc=9385613) STREPTOCOCCUS (test Not detected Not detected gpwm=3844821) STREPTOCOCCUS AGALACTIAE Not detected Not detected (GROUP B) (test uglj=4409287) STREPTOCOCCUS PNEUMONIAE Not detected Not detected (test fxtm=3134570) STREPTOCOCCUS PYOGENES (GROUP Not detected Not detected A) (test yqek=0995423) ACINETOBACTER BAUMANNII (test Not detected Not detected zjdc=6405084) HAEMOPHILUS INFLUENZAE (test Not detected Not detected mkcw=4181076) NEISSERIA MENINGITIDIS (test Not detected Not detected jwos=7704728) ENTEROBACTERIACEAE (test Not detected Not detected pieo=7501086) ENTEROBACTER CLOACOE COMPLEX Not detected Not detected (test opkb=5696318) KLEBSIELLA OXYTOCA (test Not detected Not detected shpk=7711600) KLEBSIELLA PNEUMONIAE (test Not detected Not detected dwzz=7933) PROTEUS (test dpee=8899949) Not detected Not detected SERRATIA MARCESCENS (test Not detected Not detected tfaq=3340534) NIKITA ALBICANS (test Not detected Not detected tveq=4868203) NIKITA GLABRATA (test Not detected Not detected zbao=4330292) NIKITA KRUSEI (test Not detected Not detected hwzc=3196262) NIKITA PARAPSILOSIS (test Not detected Not detected fsjp=2884871) NIKITA TROPICALIS (test Not detected Not detected okpq=6079866) ESCHERICHIA COLI (test Not detected Not detected rgqu=4733220) METHICILLIN-RESISTANCE GENE Not detected Not detected (test itbn=5545836) VANCOMYCIN-RESISTANCE GENE Not detected (test pzhc=1418984) CARBAPENEM-RESISTANCE GENE Not detected (test apwc=3707813) ENTEROCOCCUS-BEAKER (test Not detected Not detected matq=0591241) PSEUDOMONAS AERUGINOSA-BEAKER Not detected Not detected (test zjyl=4358402) Other bacteria and resistance markers not targeted by this PCR panel cannot be excluded; therefore clinical correlation and follow up of serology, culture results, and other molecular studies is required. The results are not intended to be used as the sole means for clinical diagnosis or patient management decisions. This sample was tested at the [facility] using the Grid[employer] Blood Culture ID Panel. It is FDA cleared and has been verified and approved by the [facility] for clinical use. This laboratory is CLIA-certified and College ofAmerican Pathologists (CAP)-accredited to perform high complexity testing.BASIC METABOLIC [id number] 01:44:00 Test Item Value Reference Range Comments SODIUM (BEAKER) (test 129 meq/L 136-145 fdfj=497) POTASSIUM (BEAKER) (test 4.5 meq/L 3.5-5.1 fxsa=470) CHLORIDE (BEAKER) (test 100 meq/L 98-107 dwdm=107) CO2 (BEAKER) (test 19 meq/L 22-29 qdfp=747) BLOOD UREA NITROGEN 68 mg/dL 7-21 (BEAKER) (test bcbf=109) CREATININE (BEAKER) (test 2.96 mg/dL 0.57-1.25 avyc=525) GLUCOSE RANDOM (BEAKER) 119 mg/dL 70-105 (test bfaq=187) CALCIUM (BEAKER) (test 7.7 mg/dL 8.4-10.2 ciyb=428) EGFR (BEAKER) (test 22 mL/min/1.73 sq m ESTIMATED GFR IS NOT asks=4574) ACCURATE CREATININE CLEARANCE IN PREDICTING GLOMERULAR FILTRATION RATE. ESTIMATED GFR IS NOT APPLICABLE FOR DIALYSIS PATIENTS. [id number] 01:40:00 Test Item Value Reference Range Comments MAGNESIUM (BEAKER) (test jfxj=998) 1.9 mg/dL 1.6-2.6 [id number] 01:37:00 Test Item Value Reference Range Comments MAGNESIUM (BEAKER) (test ekcc=085) 1.9 mg/dL 1.6-2.6 HEMOGLOBIN AND [id number] 00:58:00 Test Item Value Reference Range Comments HEMOGLOBIN (BEAKER) (test fhpj=860) 15.3 GM/DL 13.7-17.5 HEMATOCRIT (BEAKER) (test kkno=627) 45.5 % 40.1-51.0 HEMOGLOBIN AND [id number] 00:58:00 Test Item Value Reference Range Comments HEMOGLOBIN (BEAKER) (test cipy=526) 15.3 GM/DL 13.7-17.5 HEMATOCRIT (BEAKER) (test ypfj=501) 45.5 % 40.1-51.0 POCT-GLUCOSE [id number] 23:40:00 Test Item Value Reference Range Comments POC-GLUCOSE METER (BEAKER) 119 mg/dL 70-110 TESTED AT [address] (test pqxl=7595) [place] [address] LACTIC ACID, ARTERIAL, WHOLE [id number] 23:38:00 Test Item Value Reference Range Comments LACTATE BLOOD ARTERIAL (2) (BEAKER) (test 2.8 mmol/L 0.5-2.2 ikpz=1711) CALCIUM, [id number] 23:22:00 Test Item Value Reference Range Comments CALCIUM IONIZED (BEAKER) (test myiw=809) 0.97 mmol/L 1.12-1.27 PH, BLOOD (BEAKER) (test vsnm=4652) 7.35 POCT-GLUCOSE [id number] 21:40:00 Test Item Value Reference Range Comments POC-GLUCOSE METER (BEAKER) 109 mg/dL 70-110 TESTED AT [address] (test gboo=9772) [place] [address] LACTIC ACID, ARTERIAL, WHOLE [id number] 19:44:00 Test Item Value Reference Range Comments LACTATE BLOOD ARTERIAL (2) 2.4 mmol/L 0.5-2.2 Specimen slightly hemolyzed (BEAKER) (test ddsv=0435) BLOOD GAS, [id number] 16:39:00 Test Item Value Reference Range Comments PH ARTERIAL (BEAKER) (test hgpz=807) 7.35 7.35-7.45 PCO2 ARTERIAL (BEAKER) (test xvho=834) 36 mmHg 35-45 PO2 ARTERIAL (BEAKER) (test boyj=298) 156 mmHg 80-90 O2 SATURATION ARTERIAL (BEAKER) (test zskw=106) 98.9 % 96.0-97.0 HCO3 ARTERIAL (BEAKER) (test cara=811) 19 mmol/L 21-29 BASE EXCESS ARTERIAL (BEAKER) (test ouzs=611) -5.8 mmol/L -2.0-3.0 PATIENT TEMPERATURE (BEAKER) (test edds=6750) 37.0 C FIO2 (BEAKER) (test bpcl=0671) 40.0 % BASIC METABOLIC [id number] 15:08:00 Test Item Value Reference Range Comments SODIUM (BEAKER) (test 128 meq/L 136-145 yeth=859) POTASSIUM (BEAKER) (test 4.0 meq/L 3.5-5.1 Specimen slightly jgop=237) hemolyzed CHLORIDE (BEAKER) (test 98 meq/L 98-107 gfgb=442) CO2 (BEAKER) (test 19 meq/L 22-29 uqtb=312) BLOOD UREA NITROGEN 60 mg/dL 7-21 (BEAKER) (test wyye=028) CREATININE (BEAKER) (test 2.35 mg/dL 0.57-1.25 Specimen slightly nhcb=083) hemolyzed GLUCOSE RANDOM (BEAKER) 125 mg/dL 70-105 (test pbbw=086) CALCIUM (BEAKER) (test 7.6 mg/dL 8.4-10.2 ytdh=175) EGFR (BEAKER) (test 29 mL/min/1.73 sq m ESTIMATED GFR IS NOT hrvw=9235) ACCURATE CREATININE CLEARANCE IN PREDICTING GLOMERULAR FILTRATION RATE. ESTIMATED GFR IS NOT APPLICABLE FOR DIALYSIS PATIENTS. Specimen slightly ictericLACTIC ACID, VENOUS, WHOLE [id number] 15:07:00 Test Item Value Reference Range Comments LACTATE BLOOD VENOUS (2) (BEAKER) (test 2.4 mmol/L 0.5-2.2 sdtv=1921) [id number] 15:06:00 Test Item Value Reference Range Comments MAGNESIUM (BEAKER) (test 2.1 mg/dL 1.6-2.6 Specimen slightly hemolyzed hmtq=616) [id number] 15:06:00 Test Item Value Reference Range Comments PHOSPHORUS (BEAKER) (test 6.9 mg/dL 2.3-4.7 Specimen slightly hemolyzed hjwe=338) BLOOD GAS, [id number] 15:05:00 Test Item Value Reference Range Comments PH ARTERIAL (BEAKER) (test xrnp=974) 7.38 7.35-7.45 PCO2 ARTERIAL (BEAKER) (test kvkk=251) 36 mmHg 35-45 PO2 ARTERIAL (BEAKER) (test tfyg=117) 176 mmHg 80-90 O2 SATURATION ARTERIAL (BEAKER) (test hehw=650) 99.2 % 96.0-97.0 HCO3 ARTERIAL (BEAKER) (test qhnw=909) 21 mmol/L 21-29 BASE EXCESS ARTERIAL (BEAKER) (test zinr=505) -4.1 mmol/L -2.0-3.0 PATIENT TEMPERATURE (BEAKER) (test okoo=9296) 36.4 C FIO2 (BEAKER) (test vxff=6572) 40.0 % CBC (HEMOGRAM ONLY)2018-07-30 14:50:00 Test Item Value Reference Range Comments WHITE BLOOD CELL COUNT (BEAKER) (test nufj=529) 15.2 K/ L 3.5-10.5 RED BLOOD CELL COUNT (BEAKER) (test dwlo=841) 4.91 M/ L 4.63-6.08 HEMOGLOBIN (BEAKER) (test ieio=450) 15.6 GM/DL 13.7-17.5 HEMATOCRIT (BEAKER) (test fxnh=524) 45.6 % 40.1-51.0 MEAN CORPUSCULAR VOLUME (BEAKER) (test lvki=915) 92.9 fL 79.0-92.2 MEAN CORPUSCULAR HEMOGLOBIN (BEAKER) (test 31.8 pg 25.7-32.2 fjae=094) MEAN CORPUSCULAR HEMOGLOBIN CONC (BEAKER) (test 34.2 GM/DL 32.3-36.5 xetk=724) RED CELL DISTRIBUTION WIDTH (BEAKER) (test 15.0 % 11.6-14.4 hqxz=347) PLATELET COUNT (BEAKER) (test upsu=175) 119 K/CU MM 150-450 MEAN PLATELET VOLUME (BEAKER) (test glqn=379) 11.0 fL 9.4-12.4 NUCLEATED RED BLOOD CELLS (BEAKER) (test 0 /100 WBC 0-0 cxpy=427) RAD, CHEST, 1 VIEW, NON [id number] 13:33:00Reason for exam:-> IntubatedShould this be performed [...] Stable surgical changes.Additional findings: None. Signed: JR Jose Francisco, Rosalino Ann Verified Date/Time: 07/30/2018 13:33:24 Reading Location: [address] Neuro Reading Room POCT-GLUCOSE [id number] 12:53:00 Test Item Value Reference Range Comments POC-GLUCOSE METER (BEAKER) 119 mg/dL 70-110 TESTED AT [address] (test jaai=1940) [facility] [address] CALCIUM, [id number] 10:43:00 Test Item Value Reference Range Comments CALCIUM IONIZED (BEAKER) (test icwt=780) 0.87 mmol/L 1.12-1.27 PH, BLOOD (BEAKER) (test xnsi=8799) 7.32 BLOOD GAS, [id number] 10:42:00 Test Item Value Reference Range Comments PH ARTERIAL (BEAKER) (test quoh=029) 7.32 7.35-7.45 PCO2 ARTERIAL (BEAKER) (test hnqp=903) 41 mmHg 35-45 PO2 ARTERIAL (BEAKER) (test evlp=434) 352 mmHg 80-90 O2 SATURATION ARTERIAL (BEAKER) (test iigj=481) 99.7 % 96.0-97.0 HCO3 ARTERIAL (BEAKER) (test nzlc=565) 21 mmol/L 21-29 BASE EXCESS ARTERIAL (BEAKER) (test jnnj=318) -4.9 mmol/L -2.0-3.0 PATIENT TEMPERATURE (BEAKER) (test kota=4177) 37.0 C FIO2 (BEAKER) (test nmwo=7077) 100.0 % SODIUM NA-STAT [id number] 10:42:00 Test Item Value Reference Range Comments SODIUM (BEAKER) (test ccrh=385) 127 meq/L 135-148 POTASSIUM-STAT [id number] 10:42:00 Test Item Value Reference Range Comments POTASSIUM (BEAKER) (test ukbl=910) 3.3 meq/L 3.6-5.5 HGB/HCT (H&H) - STAT [id number] 10:42:00 Test Item Value Reference Range Comments HEMOGLOBIN (BEAKER) (test iqdx=410) 14.6 g/dL 13.0-16.8 HEMATOCRIT (BEAKER) (test gnhv=663) 43.0 % 40.0-50.0 GLUCOSE-STAT [id number] 10:40:00 Test Item Value Reference Range Comments GLUCOSE RANDOM (BEAKER) (test fmzw=551) 93 mg/dL 70-110 OSMOLALITY, [id number] 08:45:00 Test Item Value Reference Range Comments OSMOLALITY URINE (BEAKER) (test ftkc=409) 368 mOsm/kg 40-1,400 CBC W/PLT COUNT & AUTO [id number] 07:28:00 Test Item Value Reference Range Comments WHITE BLOOD CELL COUNT (BEAKER) (test wkdv=303) 22.1 K/ L 3.5-10.5 RED BLOOD CELL COUNT (BEAKER) (test lbcd=228) 5.55 M/ L 4.63-6.08 HEMOGLOBIN (BEAKER) (test zdmm=096) 17.8 GM/DL 13.7-17.5 HEMATOCRIT (BEAKER) (test qeur=479) 50.7 % 40.1-51.0 MEAN CORPUSCULAR VOLUME (BEAKER) (test vygf=685) 91.4 fL 79.0-92.2 MEAN CORPUSCULAR HEMOGLOBIN (BEAKER) (test 32.1 pg 25.7-32.2 ktbd=368) MEAN CORPUSCULAR HEMOGLOBIN CONC (BEAKER) (test 35.1 GM/DL 32.3-36.5 lfvc=346) RED CELL DISTRIBUTION WIDTH (BEAKER) (test 14.7 % 11.6-14.4 eigx=921) PLATELET COUNT (BEAKER) (test ihdn=962) 143 K/CU MM 150-450 MEAN PLATELET VOLUME (BEAKER) (test wyyz=045) 10.5 fL 9.4-12.4 NUCLEATED RED BLOOD CELLS (BEAKER) (test 0 /100 WBC 0-0 sqrm=040) (CELLAVISION MANUAL DIFF)2018-07-30 07:28:00 Test Item Value Reference Range Comments NEUTROPHILS - REL (CELLAVISION)(BEAKER) (test 79 % yskb=0981) MONOCYTES - REL (CELLAVISION)(BEAKER) (test 3 % astc=5134) BANDS - REL (CELLAVISION)(BEAKER) (test 18 % 0-10 yvzt=9235) NEUTROPHILS - ABS (CELLAVISION)(BEAKER) (test 17.46 K/ul 1.78-5.38 cdjy=8119) MONOCYTES - ABS (CELLAVISION)(BEAKER) (test 0.66 K/uL 0.30-0.82 oyox=5147) BANDS - ABS (CELLAVISION)(BEAKER) (test 3.98 K/uL 0.00-0.80 jslh=5833) TOTAL COUNTED (BEAKER) (test zqdw=2275) 100 MANUAL NRBC PER 100 CELLS (BEAKER) (test 1 /100 WBC 0-0 muaf=7818) WBC MORPHOLOGY (BEAKER) (test jqfu=883) Normal GIANT PLATELETS (BEAKER) (test vnsx=685) Present POLYCHROMATOPHILLIC RBCS(BEAKER) (test onbo=960) 3+ many ANISOCYTOSIS (BEAKER) (test dpob=557) 2+ moderate MICROCYTES (BEAKER) (test byka=332) 1+ few MACROCYTES (BEAKER) (test dser=051) 2+ moderate POIKILOCYTES (BEAKER) (test clev=338) 3+ many OVALOCYTES (BEAKER) (test sccc=021) 1+ few ACANTHOCYTES (BEAKER) (test xpye=548) 1+ few ABBI CELLS (BEAKER) (test emww=052) 2+ moderate ARTIFACT (CELLAVISION)(BEAKER) (test wfbv=1123) Present PLATELET CONCENTRATION (CELLAVISION)(BEAKER) Adequate (test vhks=3366) Received comment: User comments: Slide comments:SODIUM, RANDOM [id number] 07:26:00 Test Item Value Reference Range Comments SODIUM URINE (BEAKER) (test irfx=988) < meq/L Reference Range: No NormalsCREATININE, RANDOM [id number] 07:16:00 Test Item Value Reference Range Comments CREATININE URINE (BEAKER) (test yrcm=862) 131.7 mg/dL Reference Range: No NormalsTROPONIN [id number] 07:09:00 Test Item Value Reference Range Comments TROPONIN I (BEAKER) (test xorz=125) 0.03 ng/mL 0.00-0.03 Troponin I (TnI) levels [...] and persistent tachyarrhythmia.RAD, CHEST, 1 VIEW, NON [id number] 07:05:00Reason for exam:->right lung consolidationShould this be [...] MDReport Verified Date/Time: 2018 07:05:02 Reading Location: [address] Neuro Reading Room [id number] 06:53:00 Test Item Value Reference Range Comments PROCALCITONIN (BEAKER) (test hmkw=4349) 9.52 ng/mL <0.05 SEPSIS RISK (ng/mL)Low: 0.05-0.50Intermediate: 0.51-2.00High: & gt;=2.01LACTIC ACID, VENOUS, WHOLE [id number] 06:41:00 Test Item Value Reference Range Comments LACTATE BLOOD VENOUS (2) 6.6 mmol/L 0.5-2.2 Specimen moderately hemolyzed (BEAKER) (test abxc=5322) BLOOD GAS, [id number] 06:39:00 Test Item Value Reference Range Comments PH VENOUS (BEAKER) (test gnkk=177) 7.37 7.32-7.42 PCO2 VENOUS (BEAKER) (test djdv=348) 33 mmHg 41-51 PO2 VENOUS (BEAKER) (test vqdn=270) 62 mmHg 25-40 O2 SATURATION VENOUS (BEAKER) (test qmfg=323) 92.6 % 40.0-70.0 HCO3 VENOUS (BEAKER) (test zfpb=973) 19 mmol/L 21-29 BASE EXCESS VENOUS (BEAKER) (test vtpt=860) -5.5 mmol/L -2.0-3.0 PATIENT TEMPERATURE (BEAKER) (test tluu=7331) 36.0 C FIO2 (BEAKER) (test uljv=6361) 100.0 % POCT-GLUCOSE [id number] 06:32:00 Test Item Value Reference Range Comments POC-GLUCOSE METER (BEAKER) 123 mg/dL 70-110 TESTED AT [facility] [address] [facility] (test xzzb=6265) [facility] [address] RAD, ABDOMEN/KUB, 1 VIEW [id number] 06:03:00Reason for exam:->abdominal distension/ NGT placementShould this [...] Visualized osseous structures are unremarkable. Signed: Zafar [place] Verified Date/Time: 07/30/2018 06:03:17 Reading Location: [address] Transitional Reading Room [id number] 05:33:00 Test Item Value Reference Range Comments PROTIME (BEAKER) (test fwpk=603) 17.3 seconds 11.7-14.7 INR (BEAKER) (test vxna=296) 1.4 <=5.9 PARTIAL THROMBOPLASTIN TIME (BEAKER) (test 31.6 seconds 22.5-36.0 zrre=519) RECOMMENDED COUMADIN/WARFARIN INR THERAPY RANGESSTANDARD DOSE: 2.0 - 3.0 Includes: PROPHYLAXIS forvenous thrombosis, systemic embolization; TREATMENT for venous thrombosis and/or pulmonary embolus.HIGH RISK: Target INR is 2.5-3.5 for patients with mechanical heart valves.[id number] 05:24:00 Test Item Value Reference Range Comments MAGNESIUM (BEAKER) (test 2.0 mg/dL 1.6-2.6 Specimen slightly hemolyzed ifwd=880) [id number] 05:24:00 Test Item Value Reference Range Comments PHOSPHORUS (BEAKER) (test 6.9 mg/dL 2.3-4.7 Specimen slightly hemolyzed seys=230) COMPREHENSIVE METABOLIC [id number] 05:24:00 Test Item Value Reference Range Comments TOTAL PROTEIN (BEAKER) 6.5 gm/dL 6.0-8.3 Specimen slightly (test viwy=724) hemolyzed ALBUMIN (BEAKER) (test 2.4 g/dL 3.5-5.0 Specimen slightly xnxf=1596) hemolyzed ALKALINE PHOSPHATASE 106 U/L 40-150 (BEAKER) (test zapq=111) BILIRUBIN TOTAL (BEAKER) 3.5 mg/dL 0.2-1.2 Specimen slightly (test vgcb=894) hemolyzed SODIUM (BEAKER) (test 127 meq/L 136-145 qcle=466) POTASSIUM (BEAKER) (test 4.2 meq/L 3.5-5.1 Specimen slightly gaga=214) hemolyzed CHLORIDE (BEAKER) (test 90 meq/L 98-107 wckt=741) CO2 (BEAKER) (test 20 meq/L 22-29 xzlx=145) BLOOD UREA NITROGEN 56 mg/dL 7-21 (BEAKER) (test gzcr=367) CREATININE (BEAKER) (test 2.29 mg/dL 0.57-1.25 Specimen slightly bqtd=787) hemolyzed GLUCOSE RANDOM (BEAKER) 121 mg/dL 70-105 (test aiez=301) CALCIUM (BEAKER) (test 8.4 mg/dL 8.4-10.2 ezbc=741) AST (SGOT) (BEAKER) (test 70 U/L 5-34 Specimen slightly vpfx=048) hemolyzed ALT (SGPT) (BEAKER) (test 46 U/L 6-55 Specimen slightly ebda=937) hemolyzed EGFR (BEAKER) (test 30 mL/min/1.73 sq m ESTIMATED GFR IS NOT fpmu=9686) ACCURATE CREATININE CLEARANCE IN PREDICTING GLOMERULAR FILTRATION RATE. ESTIMATED GFR IS NOT APPLICABLE FOR DIALYSIS PATIENTS. Specimen slightly [id number] 05:24:00 Test Item Value Reference Range Comments AMYLASE (BEAKER) (test nsfn=448) 59 U/L 25-125 Specimen slightly hemolyzed Specimen slightly [id number] 05:24:00 Test Item Value Reference Range Comments LIPASE (BEAKER) (test ntcc=860) 86 U/L 8-78 Specimen slightly ictericLACTIC ACID, VENOUS, WHOLE [id number] 05:20:00 Test Item Value Reference Range Comments LACTATE BLOOD VENOUS (2) 5.6 mmol/L 0.5-2.2 Specimen markedly hemolyzed (BEAKER) (test jnzk=0925)
[2018-08-16 11:18] LABS: Absolute Lymphocytes (CBC) 0.6 K/uL (0.7-4.9); Absolute Monocytes 0.8 K/uL (0.1-1.3); Absolute Neutrophil 3.6 K/uL (1.8-8.0); Basophils % 0.4 % (0-1.3); Eosinophils % 1.5 % (0-4.4); Hematocrit 33.2 % (39.6-49.0); Lymphocytes % 12.4 % (15.3-44.8); MPV 8.8 fL (7.6-11.3)
[2018-08-16 11:19] LABS: Protime INR 1.34
[2018-08-16 11:30] LABS: Albumin 1.7 g/dL (3.4-5.0); Bilirubin Direct 0.6 mg/dL (0-0.2); Magnesium 1.8 mg/dL (1.8-2.4); Potassium 4.7 mmol/L (3.5-5.1); Protein, Total 6.9 g/dL (6.4-8.2)
[2018-08-16] MEDS ORDERED: MORPHINE 4 MG/ML SYR ONE (13:36)
[2018-08-16] MEDS ORDERED: PIPER/TAZO/NS 3.375gm 3.375 GM/100 ML BAG ONE (13:45)
--- NOTE | 2018-08-16 13:50 | EDPHYS ---
Physician Documentation [facility] Name: Onel Mancuso Age: 58 yrs Sex: Male : 1960 Arrival Date: 08/16/2018 Time: 10:32 Bed 24 Private MD: ED Physician Power Poole HPI: 08/16 10:55 This 58 yrs old Male presents to ER via Wheelchair with complaints of cp Abdominal Problem. 10:56 The patient represents for recheck after previously being evaluated for open abdominal cp wound. The patient was previously evaluated in the emergency department yesterday. Previous care: IV antibiotics. 11:00 Present symptoms: abdominal pain, has worsened, moderately, drainage form open wound. cp 11:00 Patient reports having abdominal surgery for bowel perforation by surgeon at [facility] in [facility]. Historical: - Allergies: 10:33 No Known Allergies; aa5 - PMHx: 12:03 Cirrhosis; Hepatitis; Hypertension; ls4 - PSHx: 12:03 "kidney cancer or tumor removed"; L femur; ls4 - Immunization history:: Adult Immunizations unknown. - Ebola Screening: : No symptoms or risks identified at this time. - Social history:: Smoking status: Patient/guardian denies using tobacco. ROS: 11:05 Constitutional: Negative for body aches, chills, fever, poor PO intake. cp 11:05 ENT: Negative for drainage from ear(s), ear pain, sore throat, difficulty swallowing, cp difficulty handling secretions. 11:05 Cardiovascular: Negative for chest pain. 11:05 Respiratory: Negative for cough, shortness of breath, wheezing. 11:05 Abdomen/GI: Positive for abdominal pain, Negative for vomiting, diarrhea, constipation, black/tarry stool, rectal bleeding. 11:05 Back: Negative for pain at rest, pain with movement. 11:05 : Negative for urinary symptoms. 11:05 Neuro: Negative for altered mental status. 11:05 All other systems are negative. Exam: 10:59 ECG was reviewed by the Attending Physician. cp 11:10 Constitutional: The patient appears in no acute distress, alert, awake, cp non-diaphoretic, non-toxic, well developed, well nourished, obese. 11:10 Head/Face: Normocephalic, atraumatic. cp 11:10 Eyes: Pupils equal round and reactive to light, extra-ocular motions intact. Lids and lashes normal. Conjunctiva and sclera are non-icteric and not injected. Cornea within normal limits. Periorbital areas with no swelling, redness, or edema. 11:10 ENT: External ear(s): are unremarkable, Nose: is normal, Mouth: Lips: moist, Oral mucosa: moist, Posterior pharynx: Airway: no evidence of obstruction, patent. 11:10 Neck: ROM/movement: is normal, is supple, without pain, no range of motions limitations, no meningismus, no nuchal rigidity. 11:10 Chest/axilla: Inspection: normal, Palpation: is normal, no crepitus, no tenderness. 11:10 Cardiovascular: Rate: normal, Rhythm: regular, Edema: ankle edema, that is moderate. 11:10 Respiratory: the patient does not display signs of respiratory distress, Respirations: normal, no use of accessory muscles, no retractions, no splinting, no tachypnea, labored breathing, is not present, Breath sounds: are clear throughout, no decreased breath sounds, no stridor, no wheezing. 11:10 Abdomen/GI: Inspection: distension, that is moderate, large midline. open surgical wound with noted packing in place . After removal of packing, wound appears with mild erythema, scant colored drainage noted, moderate clear drainage expressed with palpation of abdomen, Bowel sounds: active, all quadrants, Palpation: moderate abdominal tenderness, in all quadrants. 11:10 Neuro: Orientation: to person, place \\T\\ time. Mentation: is normal, Motor: moves all fours, strength is normal, Sensation: is normal. Vital Signs: 10:35 BP 132 / 95; Pulse 98; Resp 20 S; Temp 98.1(O); Pulse Ox 100% on R/A; aa5 11:59 BP 150 / 86; Pulse 88; Resp 20; Temp 98.2; Pulse Ox 100% on R/A; ls4 13:01 BP 138 / 67; Pulse 78; Resp 16; Pulse Ox 98% on R/A; ls4 14:57 BP 143 / 83; Pulse 77; Resp 16; Temp 98.3; Pulse Ox 99% on R/A; Pain 5/10; ls4 14:57 BP 145 / 78; Pulse 78; Resp 74; Pulse Ox 99% on R/A; Pain 5/10; ls4 MDM: 10:35 Patient medically screened. 13:25 Data reviewed: vital signs, nurses notes, old medical records, lab test result(s). cp 13:25 Counseling: I had a detailed discussion with the patient and/or guardian regarding: the cp historical points, exam findings, and any diagnostic results supporting the discharge/admit diagnosis, lab results, the need to transfer to another facility. 08/16 10:55 Order name: Basic Metabolic Panel; Complete Time: 12:06 cp 08/16 10:55 Order name: CBC with Diff; Complete Time: 12:06 cp 08/16 12:06 Interpretation: Normal except: WBC 5.2; RBC 3.40; HGB 10.9; HCT 33.2; PLT 216; RDW cp 19.7; LYM% 12.4; MN% 16.0; LYMA 0.6. 08/16 10:55 Order name: LFT's; Complete Time: 12:06 cp 08/16 10:55 Order name: Magnesium; Complete Time: 12:06 cp 08/16 10:55 Order name: PT-INR; Complete Time: 12:06 cp 08/16 11:01 Order name: Procalcitonin 08/16 10:55 Order name: EKG; Complete Time: 10:56 cp 08/16 10:55 Order name: Cardiac monitoring; Complete Time: 11: cp 08/16 10:55 Order name: EKG - Nurse/Tech; Complete Time: 11: cp 08/16 11:01 Order name: Lactate 08/16 11:02 Order name: Procalcitonin EDVA 08/16 11:02 Order name: Lactate; Complete Time: 13:18 EDMS 08/16 10:55 Order name: IV Saline Lock; Complete Time: 11: cp 08/16 10:55 Order name: Labs collected and sent; Complete Time: 11: cp 08/16 10:55 Order name: O2 Per Protocol; Complete Time: 11: cp 08/16 10:55 Order name: O2 Sat Monitoring; Complete Time: 11: cp 08/16 13:10 Order name: Wound dressing: repack wound wet to dry; Complete Time: 13:28 cp EC:59 Rate is 96 beats/min. Rhythm is regular. OR interval is normal. QRS interval is normal. cp QT interval is normal. T waves are Flattened in lead aVL. Interpreted by me. Reviewed by me. Administered Medications: 13:27 Drug: morphine 4 mg Route: IVP; Site: right upper arm; ls4 14:00 Follow up: Response: No adverse reaction; Marked relief of symptoms ls4 13:45 Drug: Zosyn 3.375 grams Route: IVPB; Infused Over: 60 mins; Site: right upper arm; ls4 14:45 Follow up: Response: No adverse reaction; IV Status: Completed infusion; IV Intake: [id number] Disposition: 16:00 Chart complete. cp 18:01 Co-signature as Attending Physician, Power Poole MD. rn Disposition: 08/16/18 13:50 Transfer ordered to [facility]. Diagnosis are Unspecified cirrhosis of liver, Ascites, Open wound of abdominal wall with penetration into peritoneal cavity. - Reason for transfer: Higher level of care. - Accepting physician is DR Ma. - Condition is Stable. - Problem is an ongoing problem. - Symptoms have improved. Signatures: Dispatcher [employer] EDPower Guillen MD MD rn Calderon, Audri, RN RN aa5 Chuy Almaraz PA PA Ivonne Lynch RN RN ls4 Corrections: (The following items were deleted from the chart) 12:04 10:33 PMHx: Cirrhosis; aa5 ls4 12:04 10:33 PMHx: Hepatitis; aa5 ls4 12:04 10:33 PMHx: Hypertension; aa5 ls4 12:04 10:33 PSHx: "kidney cancer or tumor removed"; aa5 ls4 12:04 10:33 PSHx: L femur; aa5 ls4 15:11 13:50 08/16/2018 13:50 Transfer ordered to [facility]. Diagnosis is ls4 Unspecified cirrhosis of liver; Ascites; Open wound of abdominal wall with penetration into peritoneal cavity. Reason for transfer: Higher level of care. Accepting physician is DR Ma. Condition is Stable. Problem is an ongoing problem. Symptoms have improved. cp
--- NOTE | 2018-08-16 13:50 | ER ---
Nurse's Notes [facility] Name: Onel Mancuso Age: 58 yrs Sex: Male : 1960 Arrival Date: 08/16/2018 Time: 10:32 Bed 24 Private MD: Diagnosis: Unspecified cirrhosis of liver;Ascites;Open wound of abdominal wall with penetration into peritoneal cavity Presentation: 08/16 10:33 Presenting complaint: Patient states: "I was just here yesterday and they were going to aa5 transfer me but I had to leave". Pt left AMA. Pt states "my legs are hurting so bad I can barely walk and my abdominal wound is leaking". Pt states "I had surgery recently at [facility] in [place] for kidney cancer or tumor I am not sure". Transition of care: patient was not received from another setting of care. Onset of symptoms was August 2018. Care prior to arrival: None. 10:33 Method Of Arrival: Wheelchair aa5 10:33 Acuity: DANIKA 2 aa5 11:27 Risk Assessment: Do you want to hurt yourself or someone else? Patient reports no ls4 desire to harm self or others. Initial Sepsis Screen: Does the patient meet any 2 criteria? No. Patient's initial sepsis screen is negative. Does the patient have a suspected source of infection? No. Patient's initial sepsis screen is negative. Historical: - Allergies: 10:33 No Known Allergies; aa5 - PMHx: 12:03 Cirrhosis; Hepatitis; Hypertension; ls4 - PSHx: 12:03 "kidney cancer or tumor removed"; L femur; ls4 - Immunization history:: Adult Immunizations unknown. - Ebola Screening: : No symptoms or risks identified at this time. - Social history:: Smoking status: Patient/guardian denies using tobacco. Screenin:26 Abuse screen: Denies threats or abuse. Nutritional screening: Tuberculosis screening: ls4 No symptoms or risk factors identified. Fall Risk Secondary diagnosis (15 points) IV access (20 points). Ambulatory Aid- None/Bed Rest/Nurse Assist (0 pts). Gait- Weak (10 pts.). Mental Status- Oriented to own ability (0 pts). Total Bower Fall Scale indicates High Risk Score (45 or more points). Fall prevention measures have been instituted. Side Rails Up X 2 Placed Close to Nursing Station Frequent Obs/Assessments Occuring As available patient and family educated on Fall Prevention Program and Strategies. Assessment: 10:35 GI: Abdomen is surgical abdominal wound. dressing saturated. ls4 11:24 General: Appears uncomfortable, ill, Behavior is calm, cooperative. Pain: Complains of ls4 pain in abdomen, right leg and left leg Pain currently is 6 out of 10 on a pain scale. Neuro: Level of Consciousness is awake, alert, obeys commands, Oriented to person, place, time, situation. GI: Abdomen is round distended, Bowel sounds present X 4 quads. 12:30 Respiratory: Airway is patent Respiratory effort is even, unlabored, Respiratory ls4 pattern is regular. 13:30 Reassessment: Patient appears in no apparent distress at this time. Patient and/or ls4 family updated on plan of care and expected duration. Pain level reassessed. Patient is alert, oriented x 3, equal unlabored respirations, skin warm/dry/pink. 14:30 Reassessment: Patient appears in no apparent distress at this time. Patient and/or ls4 family updated on plan of care and expected duration. Pain level reassessed. Patient is alert, oriented x 3, equal unlabored respirations, skin warm/dry/pink. Vital Signs: 10:35 BP 132 / 95; Pulse 98; Resp 20 S; Temp 98.1(O); Pulse Ox 100% on R/A; aa5 11:59 BP 150 / 86; Pulse 88; Resp 20; Temp 98.2; Pulse Ox 100% on R/A; ls4 13:01 BP 138 / 67; Pulse 78; Resp 16; Pulse Ox 98% on R/A; ls4 14:57 BP 143 / 83; Pulse 77; Resp 16; Temp 98.3; Pulse Ox 99% on R/A; Pain 5/10; ls4 14:57 BP 145 / 78; Pulse 78; Resp 74; Pulse Ox 99% on R/A; Pain 5/10; ls4 ED Course: 10:32 Patient arrived in ED. aa5 10:33 Chuy Almaraz PA is PHCP. cp 10:33 Power Poole MD is Attending Physician. cp 10:33 Arm band placed on. aa5 10:33 Patient has correct armband on for positive identification. Placed in gown. Bed in low aa5 position. Call light in reach. Side rails up X2. 10:34 Triage completed. aa5 10:35 media monitor on. Pulse ox on. NIBP on. ls4 10:45 Ivonne Glez, RN is Primary Nurse. ls4 11:05 Initial lab(s) drawn, by me, sent to lab. Inserted saline lock: 20 gauge in right upper aa5 arm, using aseptic technique. Blood collected. 11:11 EKG done, by information technology advisor. reviewed by Chuy DE LA CRUZ. at1 11:26 No provider procedures requiring assistance completed. ls4 12:26 Repeat lab(s) drawn. by me, sent to lab. jp3 12:26 Lactate Sent. jp3 12:26 Procalcitonin Sent. jp3 12:26 Lactate Sent. jp3 12:26 Procalcitonin Sent. jp3 14:58 Patient transferred, IV remains in place. ls4 15:05 Wound care: to SURGICAL located on abdomen was STERILE GAUZE PACKING, ABD PAD AND ls4 MEDIPORE. Administered Medications: 13:27 Drug: morphine 4 mg Route: IVP; Site: right upper arm; ls4 14:00 Follow up: Response: No adverse reaction; Marked relief of symptoms ls4 13:45 Drug: Zosyn 3.375 grams Route: IVPB; Infused Over: 60 mins; Site: right upper arm; ls4 14:45 Follow up: Response: No adverse reaction; IV Status: Completed infusion; IV Intake: [id number] Intake: 14:45 IV: 50ml; Total: 50ml. ls4 Outcome: 13:50 ER care complete, transfer ordered by . cp 15:08 Discharged to home ambulatory. ls4 15:08 Condition: stable 15:08 Discharge instructions given to patient, Instructed on the need for transfer, Demonstrated understanding of follow-up care. 15:11 Patient left the ED. ls4 Signatures: Wanda Teixeira, RN RN aa5 Lyudmila Hunt, overhauler helper EKG Tat1 Chuy Almaraz PA PA cp Romeo Roque jp3 Ivonne Glez, RN RN ls4 Corrections: (The following items were deleted from the chart) 10:35 10:33 Presenting complaint: Patient states: "I was just here yesterday and they were aa5 going to transfer me but I had to leave". Pt left AMA. aa5 11:14 10:33 Presenting complaint: Patient states: "I was just here yesterday and they were aa5 going to transfer me but I had to leave". Pt left AMA. Pt states "my legs are hurting so bad I can barely walk and my abdominal wound is leaking" aa5 12:04 10:33 PMHx: Cirrhosis; aa5 ls4 12:04 10:33 PMHx: Hepatitis; aa5 ls4 12:04 10:33 PMHx: Hypertension; aa5 ls4 12:04 10:33 PSHx: "kidney cancer or tumor removed"; aa5 ls4 12:04 10:33 PSHx: L femur; aa5 ls4
--- NOTE | 2018-08-18 10:26 | EKG ---
Test Date: 2018-08-16 Test Time: 10:56:49 Him Coder: JUAN MEASUREMENT RESULTS: Intervals: Rate: 96 NH: 160 QRSD: 94 QT: 356 QTc: 449 [place]: P: 66 NH: 160 QRS: -23 T: 63 INTERPRETIVE STATEMENTS: Normal sinus rhythm Normal ECG Compared to ECG 07/29/2018 22:31:51 Sinus tachycardia no longer present Incomplete right bundle-branch block no longer present Left anterior fascicular block no longer present Myocardial infarct finding no longer present Electronically Signed On 08-16-18 12:37:00 CDT by Harley Conley
== END 2018-08-16 15:11 | disposition short-term general hospital (02) ==
LOC: ER 10:32
DX: S31.609A Unspecified open wound of abdominal wall, unspecified quadrant with penetration into peritoneal cavity, initial encounter (principal); K74.60 Unspecified cirrhosis of liver; B19.9 Unspecified viral hepatitis without hepatic coma; R18.8 Other ascites; I10 Essential (primary) hypertension
CPT/HCPCS: 36415; 80048; 80076; 83605; 83735; 84145; 85025; 85610; 93005; 96365; 96375; 99284; J2543

== ENCOUNTER 2019-03-06 14:03 | Emergency (ER) | payer OTHER ==
[2019-03-06] MEDS ORDERED: HEPARIN/D5W 25,000 UNIT/500 ML BAG IV ONE (15:19)
[2019-03-06] MEDS ORDERED: HEPARIN 5000 UNIT/ML 1 ML VIAL ONE (15:19)
[2019-03-06 15:49] LABS: Absolute Lymphocytes (CBC) 0.7 K/uL (0.7-4.9); Basophils % 0.3 % (0-1.3); Hematocrit 46.4 % (39.6-49.0); Lymphocytes % 17.5 % (15.3-44.8); MPV 9.1 fL (7.6-11.3); RBC Red Blood Cell Count 5.15 M/uL (4.33-5.43)
[2019-03-06 15:54] LABS: Protime INR 1.17
--- NOTE | 2019-03-06 16:06 | ER ---
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 Transition of care: patient was not received from another setting of care. Onset of symptoms was March 06, 2019. Risk Assessment: Do you want to hurt yourself or someone else? Patient reports no desire to harm self or others. Initial Sepsis Screen: Does the patient meet any 2 criteria? No. Patient's initial sepsis screen is negative. Does the patient have a suspected source of infection? No. Patient's initial sepsis screen is negative. Care prior to arrival: None. 14:29 Method Of Arrival: Wheelchair la1 14:29 Acuity: DANIKA 2 la1 Historical: - Allergies: 14:29 No Known Allergies; la1 - Home Meds: 14:50 amlodipine 5 mg oral tab 1 tab once daily [Active]; Coreg 12.5 mg oral tab [Active]; tw2 folic acid 1 mg oral tab 1 tab once daily [Active]; levofloxacin 750 mg Oral tab 1 tab once daily [Active]; oxycodone 10 mg Oral TR12 1 tab every 12 hours [Active]; spironolactone 50 mg Oral tab 1 tab 2 times per day [Active]; furosemide 40 mg Oral tab 1 tab once daily [Active]; rifaximin oral 550 mg oral 1 tab [Active]; - PMHx: 14:29 Cirrhosis; Hepatitis; Hypertension; la1 - Immunization history:: Adult Immunizations up to date. - Social history:: Smoking status: Patient/guardian denies using tobacco. - Ebola Screening: : No symptoms or risks identified at this time. - Family history:: not pertinent. - Hospitalizations: : No recent hospitalization is reported. Screenin:36 Abuse screen: Denies threats or abuse. Nutritional screening: No deficits noted. tw2 Tuberculosis screening: No symptoms or risk factors identified. Fall Risk None identified. Assessment: 14:40 General: Appears in no apparent distress. Behavior is calm, cooperative, appropriate tw2 for age. Pain: Complains of pain in abdomen. Neuro: Level of Consciousness is awake, alert, obeys commands, Oriented to person, place, time, situation. Cardiovascular: Heart tones S1 S2 Patient's skin is warm and dry. Respiratory: Airway is patent Respiratory effort is even, unlabored, Respiratory pattern is regular, symmetrical, Breath sounds are clear bilaterally. GI: bandage noted to mid abdomen with indention noted, pt reports "i had some kind of bowel obstruction" Reports lower abdominal pain, upper abdominal pain. : No signs and/or symptoms were reported regarding the genitourinary system. EENT: No signs and/or symptoms were reported regarding the EENT system. Derm: No signs and/or symptoms reported regarding the dermatologic system. Musculoskeletal: Range of motion: intact in all extremities. 15:28 Reassessment: Patient appears in no apparent distress at this time. No changes from tw2 previously documented assessment. Patient and/or family updated on plan of care and expected duration. Pain level reassessed. Patient is alert, oriented x 3, equal unlabored respirations, skin warm/dry/pink. 16:33 Reassessment: Patient appears in no apparent distress at this time. No changes from tw2 previously documented assessment. Patient and/or family updated on plan of care and expected duration. Pain level reassessed. Patient is alert, oriented x 3, equal unlabored respirations, skin warm/dry/pink. Vital Signs: 14:28 BP 128 / 88; Pulse 71; Resp 16; Temp 98.2(TE); Pulse Ox 100% on R/A; Weight 105.69 kg; la1 Height 6 ft. 0 in. (182.88 cm); 15:28 BP 134 / 81; Pulse 69; Resp 15; Pulse Ox 100% on R/A; tw2 16:30 BP 152 / 93; Pulse 69; Resp 17; Pulse Ox 99% on R/A; tw2 17:29 BP 149 / 89; Pulse 73; Resp 19; Pulse Ox 97% on R/A; tw2 14:28 Body Mass Index 31.60 (105.69 kg, 182.88 cm) la1 ED Course: 14:17 Patient arrived in ED. am2 14:17 Cruzito Chase MD is Private Physician. am2 14:29 Arm band placed on right wrist. la1 14:32 Triage completed. la1 14:36 Verna Goldberg, RN is Primary Nurse. tw2 14:36 Bed in low position. Call light in reach. riddler operator on. Pulse ox on. NIBP on. tw2 14:50 Inserted saline lock: 18 gauge in right upper arm, using aseptic technique. Blood aj1 collected. 15:03 Mateo Gutiérrez MD is Attending Physician. ma2 15:24 EKG done, by hardware technician. reviewed by Mateo Gutiérrez MD. sm3 15:28 Inserted saline lock: 20 gauge in left hand, using aseptic technique. tw2 16:27 No provider procedures requiring assistance completed. Patient transferred, IV remains tw2 in place. Administered Medications: 15:24 Drug: Heparin (DVT/PE- Bolus per protocol) - HEParin 80 units/kg {Co-Signature: nya tw2 (Emma Petit RN).} Route: IVP; Site: right upper arm; 16:29 Follow up: Response: No adverse reaction tw2 15:25 Drug: Heparin (DVT/PE Drip) 18 units/kg/hr - (HEParin 99294 units, D5W 500 ml) tw2 {Co-Signature: aj1 (Emma Petit RN).} Route: IV; Rate: calculated rate; Site: right upper arm; 17:30 Follow up: IV Status: Infusion continued upon transfer tw2 17:25 Drug: [place] 10 mg-325 mg 1 tabs {Note: RASS 0.} Route: PO; tw2 17:30 Follow up: Response: No adverse reaction tw2 Outcome: 16:06 ER care complete, transfer ordered by . ma2 17:29 Transferred by ground EMS to [facility]. tw2 17:29 Condition: stable 17:29 Instructed on follow up and referral plans. the need for transfer, Demonstrated understanding of instructions, follow-up care. 17:30 Patient left the ED. tw2 Signatures: Emma Petit RN RN aj1 Sunny Osorio RN RN la1 Verna Goldberg RN RN tw2 Lyudmila Nicholson am2 Mateo Gutiérrez MD MD ma2 Maryana Mead [facility] Emma Petit RN aj1
--- NOTE | 2019-03-06 16:07 | EDPHYS ---
Physician Documentation [facility] Name: Onel Mancuso Age: 59 yrs Sex: Male : 1960 Arrival Date: 03/06/2019 Time: 14:17 Bed 8 Private MD: Cruzito Chase B ED Physician Mateo Gutiérrez HPI: 03/06 15:25 This 59 yrs old Male presents to ER via Wheelchair with complaints of ma2 abnormal mri. 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 Onset: The symptoms/episode ma2 began/occurred gradually, 1 week(s) ago. Severity of symptoms: At their worst the symptoms were moderate in the emergency department the symptoms are unchanged. The patient has not experienced similar symptoms in the past. Historical: - Allergies: 14:29 No Known Allergies; la1 - Home Meds: 14:50 amlodipine 5 mg oral tab 1 tab once daily [Active]; Coreg 12.5 mg oral tab [Active]; tw2 folic acid 1 mg oral tab 1 tab once daily [Active]; levofloxacin 750 mg Oral tab 1 tab once daily [Active]; oxycodone 10 mg Oral TR12 1 tab every 12 hours [Active]; spironolactone 50 mg Oral tab 1 tab 2 times per day [Active]; furosemide 40 mg Oral tab 1 tab once daily [Active]; rifaximin oral 550 mg oral 1 tab [Active]; - PMHx: 14:29 Cirrhosis; Hepatitis; Hypertension; la1 - Immunization history:: Adult Immunizations up to date. - Social history:: Smoking status: Patient/guardian denies using tobacco. - Ebola Screening: : No symptoms or risks identified at this time. - Family history:: not pertinent. - Hospitalizations: : No recent hospitalization is reported. ROS: 15:25 Constitutional: Negative for fever, chills, and weight loss. ma2 15:25 All other systems are negative. Exam: 15:25 Constitutional: This is a well developed, well nourished patient who is awake, alert, ma2 and in no acute distress. Head/Face: Normocephalic, atraumatic. Eyes: Pupils equal round and reactive to light, extra-ocular motions intact. Lids and lashes normal. Conjunctiva and sclera are non-icteric and not injected. Cornea within normal limits. Periorbital areas with no swelling, redness, or edema. ENT: Nares patent. No nasal discharge, no septal abnormalities noted. Tympanic membranes are normal and external auditory canals are clear. Oropharynx with no redness, swelling, or masses, exudates, or evidence of obstruction, uvula midline. Mucous membranes moist. Neck: Trachea midline, no thyromegaly or masses palpated, and no cervical lymphadenopathy. Supple, full range of motion without nuchal rigidity, or vertebral point tenderness. No Meningismus. Chest/axilla: Normal chest wall appearance and motion. Nontender with no deformity. No lesions are appreciated. Cardiovascular: Regular rate and rhythm with a normal S1 and S2. No gallops, murmurs, or rubs. Normal PMI, no JVD. No pulse deficits. Respiratory: Lungs have equal breath sounds bilaterally, clear to auscultation and percussion. No rales, rhonchi or wheezes noted. No increased work of breathing, no retractions or nasal flaring. Abdomen/GI: surgical scar, midabdomin.. Soft, non-tender, with normal bowel sounds. No distension or tympany. No guarding or rebound. No evidence of tenderness throughout. Back: No spinal tenderness. No costovertebral tenderness. Full range of motion. Vital Signs: 14:28 BP 128 / 88; Pulse 71; Resp 16; Temp 98.2(TE); Pulse Ox 100% on R/A; Weight 105.69 kg; la1 Height 6 ft. 0 in. (182.88 cm); 15:28 BP 134 / 81; Pulse 69; Resp 15; Pulse Ox 100% on R/A; tw2 16:30 BP 152 / 93; Pulse 69; Resp 17; Pulse Ox 99% on R/A; tw2 17:29 BP 149 / 89; Pulse 73; Resp 19; Pulse Ox 97% on R/A; tw2 14:28 Body Mass Index 31.60 (105.69 kg, 182.88 cm) la1 MDM: 15:03 Patient medically screened. 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 Data reviewed: vital signs, nurses notes. Counseling: I had a detailed discussion with the patient and/or guardian regarding: the historical points, exam findings, and any diagnostic results supporting the discharge/admit diagnosis, the presence of at least one elevated blood pressure reading (>120/80) during this emergency department visit, the need to transfer to another facility. 16:05 ED course: . ma2 03/06 14:45 Order name: Basic Metabolic Panel [facility] 03/06 14:45 Order name: CBC with Diff [facility] 03/06 14:45 Order name: LFT's [facility] 03/06 14:45 Order name: Magnesium [facility] 03/06 14:45 Order name: NT PRO-BNP [facility] 03/06 14:45 Order name: PT-INR [facility] 03/06 14:45 Order name: Troponin (emerg Dept Use Only) [facility] 03/06 16:00 Order name: CBC with Automated Diff; Complete Time: 16:02 [facility] 03/06 16:00 Order name: Protime (+INR); Complete Time: 16:02 [facility] 03/06 16:11 Order name: Basic Metabolic Panel [facility] 03/06 16:11 Order name: Liver (Hepatic) Function [facility] 03/06 16:11 Order name: Troponin (Emerg Dept Use Only) [facility] 03/06 16:11 Order name: NT PRO-BNP [facility] 03/06 16:11 Order name: Magnesium [facility] 03/06 14:45 Order name: XRAY Chest (1 view) [facility] 03/06 14:45 Order name: EKG; Complete Time: 15:12 [facility] 03/06 14:45 Order name: Cardiac monitoring; Complete Time: 14:46 [facility] 03/06 14:45 Order name: EKG - Nurse/Tech; Complete Time: 15:13 [facility] 03/06 14:45 Order name: IV Saline Lock; Complete Time: 14:46 [facility] 03/06 14:45 Order name: Labs collected and sent; Complete Time: 14:46 [facility] 03/06 14:45 Order name: O2 Per Protocol; Complete Time: 14:46 [facility] 03/06 14:45 Order name: O2 Sat Monitoring; Complete Time: 14:46 [facility] 03/06 16:18 Order name: RAD EDNV Administered Medications: 15:24 Drug: Heparin (DVT/PE- Bolus per protocol) - HEParin 80 units/kg {Co-Signature: aj1 tw2 (Emma Petit RN).} Route: IVP; Site: right upper arm; 16:29 Follow up: Response: No adverse reaction tw2 15:25 Drug: Heparin (DVT/PE Drip) 18 units/kg/hr - (HEParin 63302 units, D5W 500 ml) tw2 {Co-Signature: aj1 (Emma Petit RN).} Route: IV; Rate: calculated rate; Site: right upper arm; 17:30 Follow up: IV Status: Infusion continued upon transfer tw2 17:25 Drug: [place] 10 mg-325 mg 1 tabs {Note: RASS 0.} Route: PO; tw2 17:30 Follow up: Response: No adverse reaction tw2 Disposition: 03/06/19 16:06 Transfer ordered to [facility]. 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 - Reason for transfer: Higher level of care. - Accepting physician is [facility]. - Condition is Stable. - Problem is new. - Symptoms are unchanged. Signatures: Dispatcher [employer] Emma Warren RN RN aj1 Sunny Osorio RN RN la1 Verna Goldberg RN RN tw2 Mateo Gutiérrez MD MD ma2 Emma Petit RN aj1 Corrections: (The following items were deleted from the chart) 17:30 16:06 03/06/2019 16:06 Transfer ordered to [facility]. 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 Reason for transfer: Higher level of care. Accepting physician is [facility]. Condition is Stable. Problem is new. Symptoms are unchanged. ma2
[2019-03-06 16:11] LABS: ALT/SGPT 55 U/L (12-78); AST/SGOT 61 U/L (15-37); Albumin 3.3 g/dL (3.4-5.0); Alkaline Phosphatase 99 U/L (45-117); BUN Blood Urea Nitrogen 22 mg/dL (7-18); Bicarbonate 27 mmol/L (21-32); Bilirubin Direct 0.3 mg/dL (0-0.2); Bilirubin Total 0.9 mg/dL (0.2-1.0); Glucose Level 130 mg/dL (74-106); NT PRO-BNP 59 pg/mL (<125); Potassium 3.9 mmol/L (3.5-5.1); Protein, Total 8.8 g/dL (6.4-8.2); Sodium Level 141 mmol/L (136-145); Troponin (Emerg Dept Use Only) < 0.02 ng/mL (0.0-0.045)
--- NOTE | 2019-03-06 16:16 | RAD REPORT ---
EXAM DESCRIPTION: RAD - Chest Single View - 03/06/2019 3:49 pm CLINICAL HISTORY: Chest pain COMPARISON: August 15 TECHNIQUE: AP portable chest image was obtained 1534 hours . FINDINGS: Lungs are clear. Heart and vasculature are normal. No measurable pleural effusion and no p neumothorax. No acute bony abnormality seen. No acute aortic findings suspected. IMPRESSION: No acute cardiopulmonary process.
[2019-03-06] MEDS ORDERED: HYDROCODONE/APAP 10/325 TAB ONE (17:27)
[2019-03-06 19:41] VITALS: TEMP 98.2
[2019-03-06 19:45] VITALS: BP 149/89; O2SAT 97
--- NOTE | 2019-03-07 07:27 | EKG ---
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
== END 2019-03-06 17:30 | disposition short-term general hospital (02) ==
LOC: ER 14:03
DX: I82.220 Acute embolism and thrombosis of inferior vena cava (principal); I10 Essential (primary) hypertension
CPT/HCPCS: 96365; 93005; 85025; 80048; 36415; 83735; 85610; 80076; 84484; 83880; 71045; 99285; 96366; J1644 ×2

== ENCOUNTER 2019-11-16 15:51 | Emergency (ER) | payer OTHER ==
--- OUTSIDE RECORDS SUMMARY | 2019-11-16 15:54 | XMS REPORT | Clinical Summary ---
:1960 Author Organization [facility] Address [address] [place] [address] Care Team Providers Name Role Phone Mike Klein Primary Care Provider Allergies No Known Allergies Medications Medication Sig Dispensed Refills Start End Date Status Date rifAXIMin 550 mg Take 550 mg by 0 Active Tab mouth 2 (two) times daily. carvedilol (COREG) Take 12.5 mg by 0 Active 12.5 MG tablet mouth 2 (two) times daily with breakfast and dinner. amLODIPine Take 5 mg by mouth 0 Active (NORVASC) 5 MG daily. tablet folic acid Take 1 mg by mouth 0 Active (FOLVITE) 1 MG daily. tablet furosemide (LASIX) Take 40 mg by 0 Active 40 MG tablet mouth daily. spironolactone Take 25 mg by 0 A ctive (ALDACTONE) 50 MG mouth daily . tablet enoxaparin Inject 1 mL (100 60 Syringe 3 A ctive (LOVENOX) 100 mg total) 9 mg/mL Syrg subcutaneously every 12 (twelve) hours. spironolactone Take 1 tablet (50 30 tablet 2 0 (ALDACTONE) 50 MG mg total) by mouth 9 19 tablet daily for 90 days. oxyCODONE (OXY-IR) Take 10 mg by 0 0 Discontinued 10 mg tablet mouth every 8 19 (eight) hours . acetaminophen Take 500 mg by 0 12/07/19 D iscontinued (TYLENOL) 500 MG mouth every 6 19 tablet (six) hours as needed for Pain. acetaminophen Take 2 tablets 30 tablet 0 03/06/20 D iscontinued (TYLENOL) 325 MG (650 mg total) by 9 19 tablet mouth every 4 (four) hours as needed for up to 360 days. 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 07/30/2018 Encounters Date Type Specialty Care Team Description 05/15/2019 Outside Orders Central Scheduling Cody Broderick MD carcinoma (HCC) (Primary Dx) 03/06/2019 - Hospital Encounter Cardiology Radha Peña Inferi or vena cava thromboembolism (HCC); 03/07/2019 Hepatocellular carcinoma (HCC); Ciera Morales Alcoholic cirrh osis of liver with ascites (HCC); Manuela Kapoor, Decompensate d hepatic cirrhosis (HCC); Small bowel perforation (HCC); Suraj Acosta Portal hypert ension (HCC); MD Vaibhav Other ascites; Chronic hepatit is C without hepatic coma (HCC); Hepatitis B cor e antibody positive; Screening for m alignant neoplasm 03/06/2019 Hospital Encounter Radiology Rachel Ashton Chronic hepatitis C without hepatic coma (HCC); MD Javier Alcoholic cirrh osis of liver with ascites (HCC); Hepatocellular carcinoma (HCC) 03/06/2019 Orders Only Lab Rachel Ashton MD Shah, Kavita K, MD 03/06/2019 Travel 03/06/2019 Telephone Hepatology Janet Saini PA-C 12/22/2018 Anesthesia Event Jared Torres MD 12/22/2018 Surgery Jj, DEBRIDEMENT/I&D ,WOUND DESTINEY Wilson MD 12/22/2018 - Hospital Encounter Cardiology Jj, 12/23/2018 Francisco J Morgan MD 12/07/2018 Office Visit Hepatology Rachel Ashton Chronic hepati tis C without hepatic coma (HCC) (Primary Dx); MD Javier Alcoholic cirrh osis of liver with ascites (HCC); Hepatocellular carcinoma (HCC) 12/06/2018 Hospital Encounter Poli Rachel No Show MD Javier 12/06/2018 Orders Only Radiology Yun, Hepatocellular Sky A carcinoma (HCC) 12/05/2018 Orders Only Hepatology YenyJanet li Hepatocellular Beto, PA-C carcinoma (HC C) (Primary Dx) after 11/15/2018 Family History Medical History Relation Name Comments No Known Problem Father No Known Problem Mother Relation Name Status Comments Father Mother Social History Tobacco Use Types Packs/Day Years Used Date Current Some Day Smoker Cigarettes 0.25 Smokeless Tobacco: Never Used Alcohol Use Drinks/Week oz/Week Comments No /2 gallcuong Doyle B eam daily x 3Y (Quit ~ 06/22/2018) Sex Assigned at Date Recorded Not on file Job Start Date Occupation Industry Not on file Not on file Not on file Travel History Travel Start Travel End No recent travel history available. Last Filed Vital Signs Vital Sign Reading Time Taken Blood Pressure 128/80 03/07/2019 4:00 PM CDT Pulse 59 03/07/2019 4:00 PM CDT Temperature 36.1 C (96.9 F) 03/07/2019 4:00 PM CDT Respiratory Rate 18 03/07/2019 4:00 PM CDT Oxygen Saturation 97% 03/07/2019 4:00 PM CDT Inhaled Oxygen Concentration - - Weight 103.2 kg (227 lb 8 oz) 03/06/2019 7:18 PM CDT Height 182.9 cm (6') 03/06/2019 7:18 PM CDT Body Mass Index 30.85 03/06/2019 7:18 PM CDT Plan of Treatment Health Maintenance Due Date Last Done Comments COLON CANCER SCREENING COLONOSCOPY 1960 PNEUMOCOCCAL VACCINE 2-64 YEARS AT RISK (1 of - 1967 PPSV23) MEDICARE ANNUAL WELLNESS (YEAR 2 or FIRST YEAR if no 12/06/2018 IPPE) INFLUENZA VACCINE (Season Ended) 2020 Procedures Procedure Name Priority Date/Time Associated Comments Diagnosis RHYTHM STRIP - SCAN 03/09/2019 12:00 PM CDT REPORT OF PROCEDURE - 03/09/2019 12:00 ENDOSCOPY SCAN PM CDT APTT Routine 03/07/2019 2:44 Results for this PM CDT procedure are i n the results section. APTT Routine 03/07/2019 12:16 Results for this PM CDT procedure are i n the results section. HEPATITIS B PCR, Routine 03/07/2019 12:12 Results for this QUANTITATIVE PM CDT procedure are i n the results section. CBC W/PLT COUNT & Routine 03/07/2019 5:44 Result s for this AUTO DIFFERENTIAL AM CDT procedure are in the results section. CBC W/PLT COUNT & Routine 03/07/2019 5:44 Result s for this AUTO DIFFERENTIAL AM CDT procedure are in the results section. BASIC METABOLIC PANEL Routine 03/07/2019 5:44 Re sults for this (7) AM CDT procedure are i n the results section. APTT Routine 03/07/2019 5:44 Results for this AM CDT procedure are i n the results section. APTT Routine 03/07/2019 12:11 Results for this AM CDT procedure are i n the results section. CBC (HEMOGRAM ONLY) Routine 03/07/2019 12:11 Resu lts for this AM CDT procedure are i n the results section. MR ABDOMEN WITH & Routine 03/06/2019 10:47 Chronic hepatitis C Results for this WITHOUT IV CONTRAST AM CDT without hepatic proce dure are in coma (HCC) the results Alcoholic cirrhosis section. of liver with ascites (HCC) Hepatocellular carcinoma (HCC) POCT-CREATININE Routine 03/06/2019 10:06 Results for this AM CDT procedure are i n the results section. CBC W/PLT COUNT & Routine 03/06/2019 9:25 Chronic hepatitis C Results for this AUTO DIFFERENTIAL AM CDT without hepatic procedu re are in coma (HCC) the results Alcoholic cirrhosis section. of liver with ascites (HCC) Hepatocellular carcinoma (HCC) HEPATITIS C PCR, Routine 03/06/2019 9:25 Chronic hepatitis C Results for this QUANTITATIVE AM CDT without hepatic procedure ar e in coma (HCC) the results Alcoholic cirrhosis section. of liver with ascites (HCC) Hepatocellular carcinoma (HCC) ALPHA FETOPROTEIN Routine 03/06/2019 9:25 Chronic hepatitis C Results for this (AFP), TUMOR MARKER AM CDT without hepatic proce dure are in coma (HCC) the results Alcoholic cirrhosis section. of liver with ascites (HCC) Hepatocellular carcinoma (HCC) PROTHROMBIN TIME/INR Routine 03/06/2019 9:25 Chronic hepatiti s C Results for this AM CDT without hepatic procedure ar e in coma (HCC) the results Alcoholic cirrhosis section. of liver with ascites (HCC) Hepatocellular carcinoma (HCC) CBC W/PLT COUNT & Routine 03/06/2019 9:25 Chronic hepatitis C Results for this AUTO DIFFERENTIAL AM CDT without hepatic procedu re are in coma (HCC) the results Alcoholic cirrhosis section. of liver with ascites (HCC) Hepatocellular carcinoma (HCC) HEPATIC FUNCTION Routine 03/06/2019 9:25 Chronic hepatitis C Results for this PANEL AM CDT without hepatic procedure ar e in coma (HCC) the results Alcoholic cirrhosis section. of liver with ascites (HCC) Hepatocellular carcinoma (HCC) BASIC METABOLIC PANEL Routine 03/06/2019 9:25 Chronic hepatit is C Results for this (7) AM CDT without hepatic procedure ar e in coma (HCC) the results Alcoholic cirrhosis section. of liver with ascites (HCC) Hepatocellular carcinoma (HCC) RHYTHM STRIP - SCAN 12/27/2018 8:26 AM CDT PLACEMENT,WOUND VAC 12/22/2018 12:45 Non-healing PM CDT surgical wound, initial encounter Special Needs (REQ TF, WOUND VAC) DEBRIDEMENT/I&D,WOUND TRUNK 12/22/2018 12:45 PM CDT No n-healing surgical ANTERIOR wound, initial encounter Special Needs (REQ TF, WOUND VAC) NM Y90 MICROSPHERES Routine 12/06/2018 1:24 Hepatocellular Re sults for this THERAPY PM CDT carcinoma (HCC) procedure ar e in the results section. NM TUMOR LOCALIZATION Routine 12/06/2018 1:22 Re sults for this SPECT PM CDT procedure are i n the results section. IR VISCERAL Routine 12/06/2018 12:53 Hepatocellular Results f or this ARTERIOGRAM PM CDT carcinoma (HCC) procedure ar e in the results section. COMPREHENSIVE Routine 12/06/2018 8:58 Results fo r this METABOLIC PANEL AM CDT procedure ar e in the results section. CBC W/PLT COUNT & Routine 12/06/2018 8:57 Result s for this AUTO DIFFERENTIAL AM CDT procedure are in the results section. APTT Routine 12/06/2018 8:57 Results for this AM CDT procedure are i n the results section. PROTHROMBIN TIME/INR Routine 12/06/2018 8:57 Res ults for this AM CDT procedure are i n the results section. CBC W/PLT COUNT & Routine 12/06/2018 8:57 Result s for this AUTO DIFFERENTIAL AM CDT procedure are in the results section. after 11/15/2018 Results RHYTHM STRIP - SCAN (03/09/2019 12:00 PM CDT)Only the most recent of2 results within the time period is included. Narrative Performed At This result has an attachment that is no t available. EKG-SCANNED (03/09/2019 12:00 PM CDT) Narrative Performed At This result has an attachment that is no t available. aPTT (03/07/2019 2:44 PM CDT)Only the most recent of5 resultswithin the time period is included. PTT 74.4 (H) 22.5 - 36.0 seconds [facility] Specimen Blood Performing Organization Address City/[facility] Phone Number [address] [address] [place] Hepatitis B PCR, quantitative (03/07/2019 12:12 PM CDT) HBV PCR, Quantitative HBV DNA not detected HBV DNA not detected [facility] ER Specimen Blood Narrative Performed At This test uses a Real-Time Polymerase Chain [facility] Reaction (RT-PCR) methodology and was performed using JOY AmpliPrep/JOY TaqMan HBV Test, v2.0 ([employer] Reportable range for this assay is 20 - 170,000,000 IU per mL (1.30 - 8.23 Log IU/mL). Performing Organization Address City/[facility] Phone Number [address] [address] [place] CBC with platelet count + automated diff (03/07/2019 5:44 AM CDT)Only the most recent of3 resultswithin the time period is included. WBC 3.0 (L) 3.5 - 10.5 K/L [facility] RBC 4.84 4.63 - 6.08 M/L [facility] Hemoglobin 14.4 13.7 - 17.5 GM/DL [facility] Hematocrit 43.7 40.1 - 51.0 % [facility] MCV 90.3 79.0 - 92.[address] [facility] MCH 29.8 25.7 - 32.2 pg [facility] MCHC 33.0 32.3 - 36.5 GM/DL [facility] RDW 17.2 (H) 11.6 - 14.4 % [facility] Platelets 92 (L) 150 - 450 K/CU MM [facility] MPV 11.1 9.4 - 12.4 fL [facility] nRBC 0 0 - 0 /100 WBC [facility] % Neutros 57 % [facility] % Lymphs 22 % [facility] % Monos 15 % [facility] % Eos 5 % [facility] % Baso 0 % [facility] # Neutros 1.70 (L) 1.78 - 5.38 K/L [facility] # Lymphs 0.66 (L) 1.32 - 3.57 K/L [facility] # Monos 0.44 0.30 - 0.82 K/L [facility] # Eos 0.15 0.04 - 0.54 K/L [facility] # Baso 0.01 0.01 - 0.08 K/L [facility] Immature Granulocytes-Relative 0 0 - 1 % C [facility] Specimen Blood Performing Organization Address City/State/Zipcode Phone Number [facility] [address] [place] [address] CENTER Basic metabolic panel (03/07/2019 5:44 AM CDT)Only the most recent of2 results within the time period is included. Sodium 136 136 - 145 meq/L [facility] Potassium 4.1Comment: Specimen 3.5 - 5.1 meq/L [facility] moderately hemolyzed [facility] TER Chloride 105 98 - 107 meq/L [facility] CO2 24 22 - 29 meq/L [facility] BUN 18 7 - 21 mg/dL [facility] Creatinine 0.77Comment: Specimen 0.57 - 1.25 mg/dL [facility] moderately hemolyzed [facility] TER Glucose 89 70 - 105 mg/dL [facility] Calcium 8.9 8.4 - 10.2 mg/dL [facility] EGFR 104Comment: ESTIMATED GFR IS mL/min/1.73 sq m [facility] NOT ACCURATE CREATININE [facility] CLEARANCE IN PREDICTING GLOMERULAR FILTRATION RATE. ESTIMATED GFR IS NOT APPLICABLE FOR DIALYSIS PATIENTS. Specimen Blood Performing Organization Address City/State/Zipcode Phone Number [facility] [address] [place] [address] CENTER CBC (Hemogram only) (03/07/2019 12:11 AM CDT) WBC 3.3 (L) 3.5 - 10.5 K/L [facility] RBC 4.83 4.63 - 6.08 M/L [facility] Hemoglobin 14.5 13.7 - 17.5 GM/DL [facility] Hematocrit 43.6 40.1 - 51.0 % [facility] MCV 90.3 79.0 - 92.2 fL [facility] MCH 30.0 25.7 - 32.2 pg [facility] MCHC 33.3 32.3 - 36.5 GM/DL [facility] RDW 17.0 (H) 11.6 - 14.4 % [facility] Platelets 95 (L) 150 - 450 K/CU MM [facility] MPV 10.5 9.4 - 12.4 fL [facility] nRBC 0 0 - 0 /100 WBC [facility] Specimen Blood Performing Organization Address City/State/Zipcode Phone Number [facility] [address] [place] [address] CENTER MR abdomen with/without IV contrast (03/06/2019 10:47 AM CDT) Specimen Narrative Performed At FINAL REPORT [employer] TECHNIQUE: MRI of the abdomen WITHOUT an d WITH intravenous contrast. INDICATION: hcc s/p y 90. COMPARISON: MRI from 08/08/2018. FINDINGS: LOWER THORAX: Unremarkable. LIVER: Nodular, cirrhotic liver. The dif fuse enhancement of a majority of the right hepatic lobe is mo st consistent with treatment related change. There is no residual enh ancement in the branches of the right portal vein which are intrahep atic. However, there appears to be residual tumor thrombus in the rig ht main portal vein which is enhancing and measures up to 3.6 cm on s eries 11 image 67. This does mild extension into the main portal vein . An area of wedge-shaped hyperenhancement segment II is likely perfusional. An area of hyperintense T2 weighted signal, arterial phase hyperenhancement, and washout in s egment III measures 1.9 cm on series 15 image 66. BILIARY: The gallbladder is distended, p ossibly due to fasting.. No biliary ductal dilatation or filling def ect. SPLEEN: 16.3 cm splenomegaly. PANCREAS: No focal masses or ductal dila tation. ADRENALS: No adrenal nodules. KIDNEYS/URETERS: No hydronephrosis or so lid mass lesions. PERITONEUM/RETROPERITONEUM: No free flui d. LYMPH NODES: No lymphadenopathy. VESSELS: There is a new, partially occlu sive thrombus in the inferior vena cava inferior to the entrance of th e renal veins. This measures 10.6 cm in length. 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 Minimal thrombosis of the main portal ve in. Conventional hepatic arterial anatomy. M ultiple anterior abdominal collaterals. GI TRACT: No distention or wall thickeni ng. BONES AND SOFT TISSUES: Bilateral gyneco mastia. IMPRESSION: 1.Interval decrease in tumor volume with effective treatment of the intrahepatic tumor and the intrahepatic portions of the right portal vein. There is residual viable tumor thr ombus in the right main portal vein which measures up to 3.6 cm in length. This does extend minimally into the main portal vein. 2.An additional area of arterial phase h yperenhancement and washout in segment III measures 1.9 cm and is co ncerning for but not diagnostic of hepatocellular carcinoma. 3.There is a new inferior vena cava thro mbus which measures 10.6 cm in length. 4.Cirrhosis with splenomegaly. The findings were discussed with Dr. Margi lockhart on 03/06/2019 at 12:50 PM. Signed: Austin Angela MD Report Verified Date/Time:03/06/2019 12:56:03 Reading Location: [address] Radiolog y Reading Room Procedure Note Interface, External Ris In - 03/06/2019 12:58 PM CDT FINAL REPORT TECHNIQUE: MRI of the abdomen WITHOUT an d WITH intravenous contrast. INDICATION: hcc s/p y 90. COMPARISON: MRI from 08/08/2018. FINDINGS: LOWER THORAX: Unremarkable. LIVER: Nodular, cirrhotic liver. The dif fuse enhancement of a majority of the right hepatic lobe is mo st consistent with treatment related change. There is no residual enh ancement in the branches of the right portal vein which are intrahep atic. However, there appears to be residual tumor thrombus in the rig ht main portal vein which is enhancing and measures up to 3.6 cm on s eries 11 image 67. This does mild extension into the main portal vein . An area of wedge-shaped hyperenhancement segment II is likely perfusional. An area of hyperintense T2 weighted signal, arterial phase hyperenhancement, and washout in s egment III measures 1.9 cm on series 15 image 66. BILIARY: The gallbladder is distended, p ossibly due to fasting.. No biliary ductal dilatation or filling def ect. SPLEEN: 16.3 cm splenomegaly. PANCREAS: No focal masses or ductal dila tation. ADRENALS: No adrenal nodules. KIDNEYS/URETERS: No hydronephrosis or so lid mass lesions. PERITONEUM/RETROPERITONEUM: No free flui d. LYMPH NODES: No lymphadenopathy. VESSELS: There is a new, partially occlu sive thrombus in the inferior vena cava inferior to the entrance of th e renal veins. This measures 10.6 cm in length. 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 Minimal thrombosis of the main portal ve in. Conventional hepatic arterial anatomy. M ultiple anterior abdominal collaterals. GI TRACT: No distention or wall thickeni ng. BONES AND SOFT TISSUES: Bilateral gyneco mastia. IMPRESSION: 1.Interval decrease in tumor volume with effective treatment of the intrahepatic tumor and the intrahepatic portions of the right portal vein. There is residual viable tumor thr ombus in the right main portal vein which measures up to 3.6 cm in length. This does extend minimally into the main portal vein. 2.An additional area of arterial phase h yperenhancement and washout in segment III measures 1.9 cm and is co ncerning for but not diagnostic of hepatocellular carcinoma. 3.There is a new inferior vena cava thro mbus which measures 10.6 cm in length. 4.Cirrhosis with splenomegaly. The findings were discussed with Dr. Margi lockhart on 03/06/2019 at 12:50 PM. Signed: Austin Angela MD Report Verified Date/Time: 03/06/2019 1 2:56:03 Reading Location: [address] Radiolog Reading Room Performing Organization Address City/State/Zipcode Phone Number RIS POC-Creatinine (03/06/2019 10:06 AM CDT) POC-Creatinine 0.8Comment: TESTED AT 0.6 - 1.3 mg/dL [address] [place] [address] POC-EGFR 99 mL/min/1.73M2 [facility] Specimen Blood Performing Organization Address City/State/Zipcode Phone Number [address] [address] [place] Alpha fetoprotein (AFP), tumor marker (03/06/2019 9:25 AM CDT) Alpha-Fetoprotein 10,496.0 (H) <10.0 ng/mL [facility] Specimen Blood Performing Organization Address City/[facility]/Zipcode Phone Number [place] [phone] [place] [address] [place] Hepatitis C RNA, Quantitative (03/06/2019 9:25 AM CDT) HCV PCR, Quantitative 20,100 (H) <15 IU/mL [facility] Specimen Blood Narrative Performed At This test uses a Real-Time Polymerase Chain [facility] Reaction (RT-PCR) methodology and was performed using [employer] Ampliprep/JOY TaqMan HCV test kit version 2.0 ([employer] Reportable range for this assay is 15 - 100,000,000 IU per mL (1.18 - 8.00 Log IU/mL). Performing Organization Address City/[facility] Phone Number [place] [phone] [place] [address] [place] Pro-time/INR (03/06/2019 9:25 AM CDT)Only the most recent of2 resultswithin the time period is included. Protime 13.8 11.9 - 14.2 seconds [facility] INR 1.1 <=5.9 [facility] Specimen Blood Narrative Performed At Effective 11/02/2018: PT Reference Range [facility] Change New: 11.9-14.2Previous: 11.7-14.7 RECOMMENDED COUMADIN/WARFARIN INR THERAPY RANGES STANDARD DOSE: 2.0-3.0Includes: PROPHYLAXIS for venous thrombosis, systemic embolization; TREATMENT for venous thrombosis and/or pulmonary embolus. HIGH RISK: Target INR is 2.5-3.5 for patients wiht mechanical heart valves. Performing Organization Address City/[facility]/Zipcode Phone Number [facility] [address] [place] Hepatic function panel (03/06/2019 9:25 AM CDT) Protein, Total 9.0 (H) 6.0 - 8.3 gm/dL [facility] Albumin 3.7 3.5 - 5.0 g/dL [facility] Total Bilirubin 1.0 0.2 - 1.2 mg/dL [facility] Bilirubin, Direct 0.5 0.1 - 0.5 mg/dL [facility] Alkaline Phosphatase 102 40 - 150 U/L [facility] AST 49 (H) 5 - 34 U/L [facility] ALT 49 6 - 55 U/L [facility] Specimen Blood Performing Organization Address City/State/Zipcode Phone Number [address] [address] [place] NM Y90 MICROSPHERES THERAPY (12/06/2018 1:24 PM CDT) Specimen Narrative Performed At FINAL REPORT GE RIS PROCEDURE:Y-90 odessa rosphere therapy (SIR-Spheres) CPT CODE: 73915 CLINICAL INDICATION: Liver cancer PROTOCOL:20 mCi of Y-90 labeled microspheres (SIR-Spheres) was administered via a hepatic artery cathet er to the right lobe of the liver. IMPRESSION: Y-90 microsphere therapy Signed: Federico Mathew MD Report Verified Date/Time:12/07/2018 09:28:48 Reading Location: [address] Reading Room Procedure Note Interface, External Ris In - 12/07/2018 9:31 AM CDT FINAL REPORT PROCEDURE: Y-90 microsp here therapy (SIR-Spheres) CPT CODE: 21705 CLINICAL INDICATION: Liver cancer PROTOCOL: 20 mCi of Y-90 labeled micr ospheres (SIR-Spheres) was administered via a hepatic artery cathet er to the right lobe of the liver. IMPRESSION: Y-90 microsphere therapy Signed: Federico Mathew MD Report Verified Date/Time: 12/07/2018 0 9:28:48 Reading Location: [address] [employer] Reading Room Performing Organization Address City/State/Zipcode Phone Number [facility] NM tumor localization SPECT (12/06/2018 1:22 PM CDT) Specimen Narrative Performed At FINAL REPORT [email or web address] PROCEDURE:TRAC ER DISTRIBUTION STUDY - SPECT ([employer]) CPT CODE: 18608 CLINICAL INDICATION:Hepatoce llular carcinoma PROTOCOL:20.0 mCi of Y-90 micros pheres (SIR-Spheres) had been previously administered. SPECT imaging o f the liver and upper abdomen usingBremsstrahlung radiation was pe rformed without additional injection of radiopharmaceutical. FINDINGS: Tracer distribution in the vis ualized portion of the liver is irregular. No significant activity is noted outside of the liver. IMPRESSION:Appropriate tracer di stribution following right hepatic artery injection. Signed: Darshana Jin MD Report Verified Date/Time:12/06/2018 16:50:43 Reading Location: [address] [facility] Reading Room Procedure Note Interface, External Ris In - 12/06/2018 4:52 PM CDT FINAL REPORT PROCEDURE: TRACER DIS TRIBUTION STUDY - SPECT (Bremsstrahlung) CPT CODE: 08581 CLINICAL INDICATION: Hepatocellular carcinoma PROTOCOL: 20.0 mCi of Y-90 microspher es (SIR-Spheres) had been previously administered. SPECT imaging o f the liver and upper abdomen using Bremsstrahlung radiation was perf ormed without additional injection of radiopharmaceutical. FINDINGS: Tracer distribution in the vis ualized portion of the liver is irregular. No significant activity is noted outside of the liver. IMPRESSION: Appropriate tracer distri bution following right hepatic artery injection. Signed: Darshana Jin MD Report Verified Date/Time: 12/06/2018 1 6:50:43 Reading Location: [address] Nuc Med Reading Room Performing Organization Address City/State/Zipcode Phone Number [facility] Visceral Arteriogram (12/06/2018 12:53 PM CDT) Specimen Narrative Performed At FINAL REPORT [facility] Hepatic angiogram for SIR sphere infusion. History: Multifocal HCC. Modality: Ultrasound and sonography. tag meter operator: Levi Min MD Landscape Gardener: MD Roym (resident). Sedation: Moderate sedation was administ ered. 1 mg of Versed and50 mcg of fentanyl IV was used for moderate sedation monitored under my direction. Total intra-service time of sedation was 60minutes. The patient's vital signs were monitored thr oughout the procedure and recorded in the patient's medical record by the nurse. Anesthesia:Two percent Lidocaine without epinephrine. Approach:Right common femoral artery common femoral artery. Estimated blood loss:< 5 cc. Specimen: None. Fluoroscopy Time: 1.8 min. Reference Air Kerma (Ka, r): 269.3 mGy. Technique: Informed written consent was obtained. D iscussion of risks, benefits, and alternatives were made with the yonny ent. The patient expressed understanding and agreed to proceed. A universal timeout was performed prior to starting the procedur e.All elements maximal sterile barrier technique was utilized f or this procedure, including utilization of sterile scrub solution fo r skin prep, a large sterile sheet to cover the areas of the patient that were not prepped, and hand hygiene, mask, head covering, and s terile gown for performing radiologist and scrub technologist. Initial ultrasound images demonstrate pa tent right common femoral artery. Using ultrasound guidance, follo wing acquisition of permanent images, the right common femoral artery was accessed using a 21-gauge micropuncture needle. A 0.018 inch wire was advanced into the abdominal aorta. The needle was exchange d for a 4 Chadian micropuncture sheath. The micropuncture sheath was exchanged over a 0.035 Bentson wire for a 5 Chadian x 10 c m vascular sheath. A 5 Chadian Moore B catheter was used to cannulate the celiac axis. A DSA run was performed. Using a 2.8 Frenc h microcatheter and 0.016 inch microwire, the common hepatic arter y and subsequently the right hepatic artery was cannulated. The micro catheter was advanced into the right hepatic artery proximal to its bifurcation. From this location Y-90 SIR spheres were administe red by Dr. Mathew of nuclear medicine service. The catheter was removed.Injection i nto the right femoral sheath demonstrates patency of the right common femoral artery and normal sheath placement. Arteriotomy was closed with Mynx closure device and hemostasis was obtained. Vital signs wer e monitored throughout the procedure by a nurse, and remained stabl e.The patient tolerated the procedure well and left the department in the same condition. Findings: 1. Celiac arteriography demonstrates pat ent conventional hepatic arterial anatomy, patent GDA, left gastr ic, and splenic arteries. 2. Successful right hepatic transarteria l radio embolization via the right hepatic artery. 3. Right femoral sheath injection enters patent right common femoral artery puncture amenable for closure dev ice. Impression: 1. Successful, uncomplicated hepatic ang iogram and right hepatic radio-embolization. 2. Successful hemostasis with closure de vice. Signed: Levi Min MD Report Verified Date/Time:12/06/2018 14:59:07 Reading Location: [place] [address] Angio Body Reading Room Procedure Note Interface, External Ris In - 12/06/2018 3:01 PM CDT FINAL REPORT Hepatic angiogram for SIR sphere infusio n. History: Multifocal HCC. Modality: Ultrasound and sonography. tag meter operator: Levi Min MD Landscape Gardener: MD oRmy (resident). Sedation: Moderate sedation was administ ered. 1 mg of Versed and 50 mcg of fentanyl IV was used for moderate sedation monitored under my direction. Total intra-service time of s edation was 60 minutes. The patient's vital signs were monitored thr oughout the procedure and recorded in the patient's medical record by the nurse. Anesthesia: Two percent Lidocaine witho ut epinephrine. Approach: Right common femoral artery c ommon femoral artery. Estimated blood loss: < 5 cc. Specimen: None. Fluoroscopy Time: 1.8 min. Reference Air Kerma (Ka, r): 269.3 mGy. Technique: Informed written consent was obtained. D iscussion of risks, benefits, and alternatives were made with the yonny ent. The patient expressed understanding and agreed to proceed. A universal timeout was performed prior to starting the procedur e. All elements maximal sterile barrier technique was utilized f or this procedure, including utilization of sterile scrub solution fo r skin prep, a large sterile sheet to cover the areas of the patient that were not prepped, and hand hygiene, mask, head covering, and s terile gown for performing radiologist and scrub technologist. Initial ultrasound images demonstrate pa tent right common femoral artery. Using ultrasound guidance, follo wing acquisition of permanent images, the right common femoral artery was accessed using a 21-gauge micropuncture needle. A 0.018 inch wire was advanced into the abdominal aorta. The needle was exchange d for a 4 Chadian micropuncture sheath. The micropuncture sheath was exchanged over a 0.035 Bentson wire for a 5 Chadian x 10 c m vascular sheath. A 5 Chadian Moore B catheter was used to cannulate the celiac axis. A DSA run was performed. Using a 2.8 Frenc h microcatheter and 0.016 inch microwire, the common hepatic arter y and subsequently the right hepatic artery was cannulated. The micro catheter was advanced into the right hepatic artery proximal to its bifurcation. From this location Y-90 SIR spheres were administe red by Dr. Mathew of nuclear medicine service. The catheter was removed. Injection int o the right femoral sheath demonstrates patency of the right common femoral artery and normal sheath placement. Arteriotomy was closed with Mynx closure device and hemostasis was obtained. Vital signs wer e monitored throughout the procedure by a nurse, and remained stabl e. The patient tolerated the procedure well and left the department i n the same condition. Findings: 1. Celiac arteriography demonstrates pat ent conventional hepatic arterial anatomy, patent GDA, left gastr ic, and splenic arteries. 2. Successful right hepatic transarteria l radio embolization via the right hepatic artery. 3. Right femoral sheath injection enters patent right common femoral artery puncture amenable for closure dev ice. Impression: 1. Successful, uncomplicated hepatic ang iogram and right hepatic radio-embolization. 2. Successful hemostasis with closure de vice. Signed: Levi Min MD Report Verified Date/Time: 12/06/2018 1 4:59:07 Reading Location: [facility] Angio Body Reading Room Performing Organization Address City/State/Zipcode Phone Number [email or web address] Comprehensive metabolic panel (12/06/2018 8:58 AM CDT) Protein, Total 7.7 6.0 - 8.3 gm/dL [facility] Albumin 3.1 (L) 3.5 - 5.0 g/dL [facility] Alkaline Phosphatase 92 40 - 150 U/L [facility] Total Bilirubin 0.5 0.2 - 1.2 mg/dL [facility] Sodium 137 136 - 145 meq/L [facility] Potassium 4.2 3.5 - 5.1 meq/L [facility] Chloride 108 (H) 98 - 107 meq/L [facility] CO2 25 22 - 29 meq/L [facility] BUN 17 7 - 21 mg/dL [facility] Creatinine 0.83 0.57 - 1.25 mg/dL [facility] Glucose 120 (H) 70 - 105 mg/dL [facility] Calcium 8.9 8.4 - 10.2 mg/dL [facility] AST 34 5 - 34 U/L [facility] ALT 22 6 - 55 U/L [facility] EGFR 95Comment: ESTIMATED GFR mL/min/1.73 sq m [facility] CREATININE CLEARANCE IN PREDICTING GLOMERULAR FILTRATION RATE. ESTIMATED GFR IS NOT APPLICABLE FOR DIALYSIS PATIENTS. Specimen Blood Performing Organization Address City/State/Zipcode Phone Number [facility] [place] [address] [place] [address] CENTER after 11/15/2018 Insurance Payer Benefit Plan / Subscriber ID Type Phone Address Group MEDICARE MEDICARE A B xxxxxxxxxxx Medicare MEDICAID - MEDICAID [place] [facility] [employer] xxxxxxxxx Medicaid Contracted [employer] CARE PLAN (Home) [address] [place] [address] Advance Directives For more information, please contact:[place] [id number] [place], [place] [phone] Code Status Date Activated Date Inactivated Comments Full Code 03/06/2019 9:47 PM 03/07/2019 9:31 PM This code status was determined by: Patient Full Code 12/22/2018 9:11 AM 12/23/2018 8:50 PM This code status was determined by: Patient Full Code 12/06/2018 12:36 PM 12/06/2018 7:38 PM This code status was determined by: Patient Full Code 10/24/2018 5:41 PM 10/24/2018 9:50 PM This code status was determined by: Patient Full Code 10/24/2018 2:08 PM 10/24/2018 2:33 PM This code status was determined by: Patient
--- OUTSIDE RECORDS SUMMARY | 2019-11-16 16:01 | XMS REPORT | Continuity of Care Document ---
:1960 Author Organization [facility] t Address [address] [place] [address] [address] [place] [address] Care Team Providers Name Role Phone KleinMike Primary Care Physician Long Broderick MD Attending Clinician Charlie Broderick MD Attending Clinician Dani RICHMOND Attending Clinician Unavailable Dani Richmond MD Attending Clinician Manuela Morales MD Attending Clinician Vaibhav Acosta MD Attending Clinician Javier Ashton MD Attending Clinician JAVIER ASHTON Attending Clinician Unavailable Beto Saini PA-C Attending Clinician Eddie Gardner MD Attending Clinician Max Torres MD Attending Clinician Mike Malcolm Attending Clinician Unavailable PRUDENCE Attending Clinician Unavailable LANA COKER Attending Clinician Unavailable Dani RICHMOND Admitting Clinician Unavailable JAVIER ASHTON Admitting Clinician Unavailable PRUDENCE Admitting Clinician Unavailable LANA COKER Admitting Clinician Unavailable Payers Payer Name Policy Policy Number Effective Expiration Source Type Date Date MEDICAREMEDICARE A xxxxxxxxxxx [facility] - [facility] PLANxxxxxxxxxMedicaid Med ical Contracted Center Problems Condition Condition Condition Status Onset Resolution Last Treating Co mments Source Name Details Category Date Date Treatment Clinician Date Chronic Chronic Problem Active [place] pain Pain 11-05 Family 00:00: Practic 00 e Hypertensi Hypertensi Problem Active [facility] ve ve 6 Family disorder Disorder 00:00: Practi c 00 e Inferior Inferior Disease [facility]30 [facility]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 thromboemb 00:00: Me dical olism olism 00 Center Nonhealing Nonhealing Disease Active [facility] surgical surgical 7-18 [facility] wound wound 00:00: Medical 00 Center Wound Wound Disease Active [facility] dehiscence dehiscence 3-12 Karin kes - 00:00: Medical 00 Center Hepatocell Hepatocell Disease Active [facility] ular ular 3-07 [facility] - carcinoma carcinoma 00:00: Medi ronald 00 [place] Ventricula Ventricula Disease Active [facility] r r 2-25 [facility] - tachycardi tachycardi 00:00: Me dical a a 00 Center HCV HCV Disease Active [facility] (hepatitis (hepatitis 2 Karin kes - C virus) C virus) 00:00: Medica l 00 Center Alcoholic Alcoholic Disease Active [facility]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 2-23 [facility] - of liver of liver 00:00: Medica l with with 00 Center ascites ascites Small Small Disease Active [facility] bowel bowel 2-23 [facility] - obstructio obstructio 00:00: Me dical n n 00 [place] Former Former Disease Active [facility] smoker smoker 2-23 [facility] - 00:[facility]: Medical 00 Center Alcohol Alcohol Disease Active [facility] dependence dependence 2-23 Karin kes - 00:00: Medical 00 Center Acute Acute Disease Active [facility] abdominal abdominal 2-23 [facility] - pain pain 00:00: Medical 00 Center Pneumoperi Pneumoperi Disease Active [facility] toneum toneum 2-23 [facility] - 00:00: Medical 00 Center Severe Severe Disease Active [facility] sepsis sepsis 2-23 [facility] - 00:00: Medical 00 [place] ARF (acute ARF (acute Disease Active [facility] renal renal 2-23 [facility] - failure) failure) 00:00: Medica l 00 Center SB SB Disease Active [facility] perforatio perforatio 2-23 Karin kes - n s/b SBR n s/b SBR 00:00: Medi ronald (jejunal) (jejunal) 00 Cent er w/ primary w/ primary anastamosi anastamosi s s Allergies, Adverse Reactions, Alerts This patient has no known allergies or adverse reactions. Family History Family Member Diagnosis Comments Start Date Stop Date Source Natural father No Known Problem [facility] Natural mother No Known Problem [facility] Social History Social Habit Start Date Stop Date Quantity Comments Source History of tobacco Cigarette Smoker [facility] use [facility] Sex Assigned At [facility] Cigarettes smoked 2018-12-23 2018-12-23 [facility] - current (pack per 00:00:00 00:00:00 Medical Center day) - Reported Alcohol Comment 2018-09-21 2018-09-21 1/2 patricio Doyle [facility] Gisell branham [facility] - 00:00:00 00:00:00 Beam daily x 3Y Medical C enter (Quit ~ 06/22/2018) Smoking Status Start Date Stop Date Source Light Tobacco Smoker [facility] Practice Current some day smoker 2018-12-23 00:00:00 [facility] Medications Ordered Filled Start Stop Current Ordering Indication Dosage Frequency Signature Comments Components Source Medication Medication Date Date Medication? Clinician (SIG) Name Name enoxaparin 2018-06 Yes 100mg Inject [address] (LOVENOX) 0-01 mL (100 mg [facility] - 100 mg/mL 00:00: total) Medica l Syrg 00 subcutaneo Center usly every 12 (twelve) hours. spironolact Yes 25mg QD Take [address] [facility] one 9-30 by mouth [facility] - (ALDACTONE) 21:40: daily . Med ical 50 MG 03 Center tablet oxyCODONE 2018- No 10mg Take [address] (OXY-IR) 10 -30 -30 by mouth Robin es - mg tablet 20:10: 00:00 every 8 Medi ronald 58 :00 (eight) Center hours . folic acid Yes 1mg QD Take [address] (FOLVITE) 1 9-30 by mouth Luke [facility] - MG tablet 20:04: daily. Medica l 58 [place] furosemide Yes 40mg QD Take [address] (LASIX) 40 9-30 by mouth [facility] - MG tablet 20:04: daily. Medica l 58 [place] acetaminoph 2019- No 650mg Take [address] en 7-19 09-30 tablets [facility] - (TYLENOL) 00:00: 00:00 (650 mg Medi ronald 325 MG 00 :00 total) by Center tablet mouth every 4 (four) hours as needed for up to 360 days. carvedilol Yes 12.5mg Take 12.[address] (COREG) 7-02 mg by [facility] - 12.5 MG 08:44: mouth 2 Medical tablet 04 (two) Center times daily with breakfast and dinner. amLODIPine Yes 5mg QD Take [address] (NORVASC) 5 7-02 by mouth Luke [facility] - MG tablet 08:44: daily. Medica l 04 [place] acetaminoph 2019- No 500mg Take [address] en 7-02 07-02 mg by [facility] - (TYLENOL) 08:41: 00:00 mouth Medica l 500 MG 36 :00 every 6 Center tablet (six) hours as needed for Pain. rifAXIMin Yes 550mg Q.5D Take [address] 550 mg Tab 5-20 mg by [facility] - 09:56: mouth 2 Medical 34 (two) Center times daily. spironolact 2019- No 50mg QD Take [address] one 3-19 06-17 tablet (50 [facility] - (ALDACTONE) 00:00: 23:59 mg total) Medical 50 MG 00 :00 by mouth Center tablet daily for 90 days. acetaminoph acetaminoph No 1capsul BID acetaminop [facility] en 325 en 325 e(s) hen 325 Family mg-codeine mg-codeine mg-codeine Practic 30 mg 30 mg 30 mg e capsule capsule capsule Take 1 Take 1 Take 1 capsule capsule capsule twice a day twice a day twice a by oral by oral day by route as route as oral route needed. needed. as needed. Vital Signs Vital Name Observation Time Observation Value Comments Source Height 2019-11-06 00:00:00 72 [in_i] [facility] BMI (Body Mass Index) 2019-11-06 00:00:00 33.2 kg/m2 [facility] Body Weight 2019-11-06 00:00:00 245 [lb_av] [facility] Systolic blood 2019-03-07 16:00:00 128 mm[Hg] [facility] Diastolic blood 2019-03-07 16:00:00 80 mm[Hg] [facility] Heart rate 2019-03-07 16:00:00 59 /min [facility] Body temperature 2019-03-07 16:00:00 36.06 Dilma [facility] Respiratory rate 2019-03-07 16:00:00 18 /min [facility] Oxygen saturation in 2019-03-07 16:00:00 97 /min [facility] Arterial blood by Medical Ce nter Pulse oximetry Body height 2019-03-06 19:18:00 182.9 cm [facility] Body weight Measured 2019-03-06 19:18:00 103.193 kg [facility] BMI 2019-03-06 19:18:00 30.85 kg/m2 [facility] Procedures Procedure Date / Time Performed Performing Clinician [facility] e RHYTHM STRIP - SCAN 2019-03-09 12:00:12 Provider, Default [facility] REPORT OF PROCEDURE - 2019-03-09 12:00:10 Provider, Default [facility] ENDOSCOPY SCAN [facility] APTT 2019-03-07 14:44:00 Ciera Morales [facility] APTT 2019-03-07 12:16:00 Ciera Morales Manuela [facility] HEPATITIS B PCR, 2019-03-07 12:12:00 TasRonn dutta [facility] APTT 2019-03-07 05:44:00 Ciera Morales [facility] BASIC METABOLIC PANEL (7) 2019-03-07 05:44:00 Ciera Morales [facility] CBC W/PLT COUNT & AUTO 2019-03-07 05:44:00 Ciera Morales [facility] CBC (HEMOGRAM ONLY) 2019-03-07 00:11:00 Ciera Morales [facility] S [facility] APTT 2019-03-07 00:11:00 Ciera Morales [facility] MR ABDOMEN WITH & WITHOUT 2019-03-06 10:47:00 Rachel Ashton [facility] IV CONTRAST [facility] POCT-CREATININE 2019-03-06 10:06:00 Rachel Ashton [facility] BASIC METABOLIC PANEL (7) 2019-03-06 09:25:00 Rachel Ashton [facility] HEPATIC FUNCTION PANEL 2019-03-06 09:25:00 Rachel Ashton [facility] PROTHROMBIN TIME/INR 2019-03-06 09:25:00 Rachel Ashton [facility] ALPHA FETOPROTEIN (AFP), 2019-03-06 09:25:00 Rachel Ashton [facility] TUMOR MARKER [facility] HEPATITIS C PCR, 2019-03-06 09:25:00 Rachel Ashton [facility] CBC W/PLT COUNT & AUTO 2019-03-06 09:25:00 Rachel Ashton [facility] RHYTHM STRIP - SCAN 2018-12-27 08:26:46 Provider, [facility] DEBRIDEMENT/I&D,WOUND 2018-12-22 12:45:00 Rosalino Gardner [facility] TRUNK ANTERIOR [facility] PLACEMENT,WOUND VAC 2018-12-22 12:45:00 Rosalino Gardner [facility] NM Y90 MICROSPHERES 2018-12-06 13:24:00 Rachel Ashton [facility] NM TUMOR LOCALIZATION 2018-12-06 13:22:00 Rachel Ashton [facility] IR VISCERAL ARTERIOGRAM 2018-12-06 12:53:00 Rachel Ashton [facility] COMPREHENSIVE METABOLIC 2018-12-06 08:58:00 [facility]/INR 2018-12-06 08:57[facility]00 [facility] 2018-12-06 08:57[facility]00 [facility] W/PLT COUNT & AUTO 2018-12-06 08:57:00 [facility] Plan of Care Planned Activity Planned Date Details Comments Source Future Scheduled Test 2020-02-[address] [facility] - 00:00:00 (Season Ended) [code Medical Center = INFLUENZA VACCINE (Season Ended)] Future Scheduled Test 2018-12-06 MEDICARE ANNUAL [facility] - 00:00:00 WELLNESS (YEAR 2 or Medical Center FIRST YEAR if no IPPE) [code = MEDICARE ANNUAL WELLNESS (YEAR 2 or FIRST YEAR if no IPPE)] Future Scheduled Test 1966 PNEUMOCOCCAL VACCINE [facility] - 00:00:00 2-64 YEARS AT RISK (1 Medica l Center of 1 - PPSV23) [code = PNEUMOCOCCAL VACCINE 2-64 YEARS AT RISK (1 of 1 - PPSV23)] Future Scheduled Test 1960 COLON CANCER [facility] - 00:00:00 S[facility]ING [facility] [code = COLON CANCER SCREENING COLONOSCOPY] Future Appointment 2020-02-09 Radha Polk, [facility] Family 00:00:00 [address]; [address] [place] [address], [place] [id number] Encounters Start End Encounter Admission Attending Care Care Encounter Source Date/Time Date/Time Type Type Clinicians Facility Department ID 2019-11-06 2019-11-06 Radha [facility] [place] - [id number] [facility]:00[facility]00 [facility]00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 2019-04-12 2019-04-12 Office LAURA Broderick [id number] 08:34:32 09:18:32 Visit Cody Dumont [id number] Charlie [id number] 2019-03-21 2019-03-21 [facility] [id number] 10:04:47 10:34:47 Visit Cody Dumont [id number] Charlie [id number] 2019-01-31 2019-01-31 Office VASU Broderick [id number] 09:06:24 10:55:30 Visit Cody AMBULATOR [id number] Charlie Y [id number] Results Test Description Test Time Test Comments Results Result Comments Source Hepatitis B PCR, quantitative 2019-03-09 12:46:00 Test Item Value Reference Range Interpretation Comme nts HBV PCR, Quantitative (test code HBV DNA not detected HBV DNA not d etected = 23543-7) DANTE (test code = DANTE) This test uses a Real-Time Polymerase Chain Reaction (RT-PCR) methodology and was performed using JOY AmpliPrep/JOY TaqMan HBV Test, v2.0 ([employer] Reportable range for this assay is 20 - 170,000,000 IU per mL (1.30 - 8.23 Log IU/mL). Lab Interpretation (test code = Normal 55224-6) [facility], [id number] 12:46:00 Test Item Value Reference Range Interpretation Comments HBV RESULT COMPONENT HBV DNA not detected HBV DNA not detected (BEAKER) (test code = 2701) This test uses a Real-Time Polymerase Chain Reaction (RT-PCR) methodology and was performed using JOY AmpliPrep/JOY TaqMan HBV Test, v2.0 ([employer]Reportable range for this assay is 20 - 170,000,000 IU per mL (1.30 - 8.23 Log IU/mL).[id number] 15:14:00 Test Item Value Reference Range Interpretation Comments PTT (test code = 47143-6) 74.4 22.5- 36.0 seconds H Lab Interpretation (test code = Abnormal 67688-1) [facility] 15:14:00 Test Item Value Reference Range Interpretation Comments PARTIAL THROMBOPLASTIN TIME 74.4 seconds 22.5-36.0 H (BEAKER) (test code = 760) Hepatitis C RNA, [id number] 15:07:00 Test Item Value Reference Range Interpretation Comments HCV PCR, Quantitative 30358 <15 IU/mL H (test code = 57474-5) DANTE (test code = DANTE) This test uses a Real-Time Polymerase Chain Reaction (RT-PCR) methodology and was performed using JOY Ampliprep/JOY TaqMan HCV test kit version 2.0 ([employer] Reportable range for this assay is 15 - 100,000,000 IU per mL (1.18 - 8.00 Log IU/mL). Lab Interpretation (test Abnormal code = 93985-3) [facility], [id number] 15:07:00 Test Item Value Reference Range Interpretation Comments HCV NUMERIC RESULT (BEAKER) (test 87238 IU/mL <15 H code = 2700) This test uses a Real-Time Polymerase Chain Reaction (RT-PCR) methodology and was performed using JOY Ampliprep/JOY TaqMan HCV test kit version 2.0 ([employer]Reportable range for this assay is 15 - 100,000,000 IU per mL (1.18 - 8.00 Log IU/mL).[id number] 13:24:00 Test Item Value Reference Range Interpretation Comments PARTIAL THROMBOPLASTIN TIME 143.9 seconds 22.5-36.0 H (BEAKER) (test code = 760) Basic metabolic [id number] 06:49:00 Test Item Value Reference Range Interpretation Comments Sodium (test code = 136 meq/L 590-354 7946-2) Potassium (test code 4.1 meq/L 3.5-5.1 Specime n moderately = 2823-3) hemolyzed Chloride (test code = 105 meq/L 98-107 2075-0) CO2 (test code = 24 meq/L 22-29 8-9) BUN (test code = 18 mg/dL 7- 3094-0) Creatinine (test code 0.77 mg/dL 0.57-1.25 Specim en moderately = 2160-0) hemolyzed Glucose (test code = 89 mg/dL 70-105 2345-7) Calcium (test code = 8.9 mg/dL 8.4-10.2 62429-2) EGFR (test code = 104 mL/min/1.73 [place] [address]-2) ACCURATE CREATININE ZACH JEFFERY IN PREDICTING GLOMERULAR FILT RATION RATE. ESTIMATED GFR IS NOT APPLICAB LE FOR DIALYSIS PATIEN TS. [facility] METABOLIC [id number] 06:49:00 Test Item Value Reference Range Interpretation Comments SODIUM (BEAKER) 136 meq/L 136-145 (test code = 381) POTASSIUM (BEAKER) 4.1 meq/L 3.5-5.1 Specimen moderately (test code = 379) hemolyzed CHLORIDE (BEAKER) 105 meq/L 98-107 (test code = 382) CO2 (BEAKER) (test 24 meq/L 22-29 code = 355) BLOOD UREA NITROGEN 18 mg/dL 7-21 (BEAKER) (test code = 354) CREATININE (BEAKER) 0.77 mg/dL 0.57-1.25 Specimen moderately (test code = 358) hemolyzed GLUCOSE RANDOM 89 mg/dL 70-105 (BEAKER) (test code = 652) CALCIUM (BEAKER) 8.9 mg/dL 8.4-10.2 (test code = 697) EGFR (BEAKER) (test 104 mL/min/1.73 ESTIM ATED GFR IS code = 1092) sq m NOT ACCURATE CREATININE CLEARANCE IN PREDICTING GLOMERULAR FILTRATION RATE . ESTIMATED GFR I S NOT APPLICABLE FOR DIALYSIS PATIEN TS. [id number] 06:39:00 Test Item Value Reference Range Interpretation Comments PARTIAL THROMBOPLASTIN TIME 84.1 seconds 22.5-36.0 H (BEAKER) (test code = 760) 6 hours after starting heparin infusion and as indicated per sliding scaleCBC with platelet count + automated [id number] 06:29:00 Test Item Value Reference Range Interpretation Comments WBC (test code = 6690-2) 3.0 3.5- 10.5 K/L L RBC (test code = 789-8) 4.84 4.63- 6.08 M/L MCHC (test code = 786-4) 33.0 32.3- 36.5 GM/DL Hematocrit (test code = 4544-3) 43.7 % 40.1-51 MCV (test code = 787-2) 90.3 fL 79-92.2 MCH (test code = 785-6) 29.8 pg 25.7-32.2 RDW (test code = 788-0) 17.2 % 11.6-14.4 H Platelets (test code = 777-3) 92 150- 450 K/CU MM L MPV (test code = 70061-3) 11.1 fL 9.4-12.4 nRBC (test code = 413) 0 0- 0 /100 WBC % Neutros (test code = 429) 57 % % Lymphs (test code = 430) 22 % % Monos (test code = 431) 15 % % Eos (test code = 432) 5 % % Baso (test code = 437) 0 % # Neutros (test code = 670) 1.70 1.78- 5.38 K/L L # Lymphs (test code = 414) 0.66 1.32- 3.57 K/L L # Monos (test code = 415) 0.44 0.30- 0.82 K/L # Eos (test code = 416) 0.15 0.04- 0.54 K/L # Baso (test code = 417) 0.01 0.01- 0.08 K/L Immature Granulocytes-Relative 0 % 0-1 (test code = 2801) Lab Interpretation (test code = Abnormal 52030-7) [facility] W/PLT COUNT & AUTO [id number] 06:29:00 Test Item Value Reference Range Interpretation Comments WHITE BLOOD CELL COUNT (BEAKER) 3.0 K/ L 3.5-10.5 L (test code = 775) RED BLOOD CELL COUNT (BEAKER) 4.84 M/ L 4.63-6.08 (test code = 761) HEMOGLOBIN (BEAKER) (test code = 14.4 GM/DL 13.7-17.5 410) HEMATOCRIT (BEAKER) (test code = 43.7 % 40.1-51.0 411) MEAN CORPUSCULAR VOLUME (BEAKER) 90.3 fL 79.0-92.2 (test code = 753) MEAN CORPUSCULAR HEMOGLOBIN 29.8 pg 25.7-32.2 (BEAKER) (test code = 751) MEAN CORPUSCULAR HEMOGLOBIN CONC 33.0 GM/DL 32.3-36.5 (BEAKER) (test code = 752) RED CELL DISTRIBUTION WIDTH 17.2 % 11.6-14.4 H (BEAKER) (test code = 412) PLATELET COUNT (BEAKER) (test code 92 K/CU MM 150-450 L = 756) MEAN PLATELET VOLUME (BEAKER) 11.1 fL 9.4-12.4 (test code = 754) NUCLEATED RED BLOOD CELLS (BEAKER) 0 /100 WBC 0-0 (test code = 413) NEUTROPHILS RELATIVE PERCENT 57 % (BEAKER) (test code = 429) LYMPHOCYTES RELATIVE PERCENT 22 % (BEAKER) (test code = 430) MONOCYTES RELATIVE PERCENT 15 % (BEAKER) (test code = 431) EOSINOPHILS RELATIVE PERCENT 5 % (BEAKER) (test code = 432) BASOPHILS RELATIVE PERCENT 0 % (BEAKER) (test code = 437) NEUTROPHILS ABSOLUTE COUNT 1.70 K/ L 1.78-5.38 L (BEAKER) (test code = 670) LYMPHOCYTES ABSOLUTE COUNT 0.66 K/ L 1.32-3.57 L (BEAKER) (test code = 414) MONOCYTES ABSOLUTE COUNT (BEAKER) 0.44 K/ L 0.30-0.82 (test code = 415) EOSINOPHILS ABSOLUTE COUNT 0.15 K/ L 0.04-0.54 (BEAKER) (test code = 416) BASOPHILS ABSOLUTE COUNT (BEAKER) 0.01 K/ L 0.01-0.08 (test code = 417) IMMATURE GRANULOCYTES-RELATIVE 0 % 0-1 PERCENT (BEAKER) (test code = 2801) [id number] 00:42:00 Test Item Value Reference Range Interpretation Comments PARTIAL THROMBOPLASTIN TIME 47.0 seconds 22.5-36.0 H (BEAKER) (test code = 760) Prior to initiating heparinCBC (Hemogram only)2019-03-07 00:21:00 Test Item Value Reference Range Interpretation Comments WBC (test code = 6690-2) 3.3 3.5- 10.5 K/L L RBC (test code = 789-8) 4.83 4.63- 6.08 M/L MCHC (test code = 786-4) 33.3 32.3- 36.5 GM/DL Hematocrit (test code = 4544-3) 43.6 % 40.1-51 MCV (test code = 787-2) 90.3 fL 79-92.2 MCH (test code = 785-6) 30.0 pg 25.7-32.2 RDW (test code = 788-0) 17.0 % 11.6-14.4 H Platelets (test code = 777-3) 95 150- 450 K/CU MM L MPV (test code = 03131-7) 10.5 fL 9.4-12.4 nRBC (test code = 413) 0 0- 0 /100 WBC Lab Interpretation (test code = Abnormal 33299-2) [facility] (HEMOGRAM ONLY)2019-03-07 00:21:00 Test Item Value Reference Range Interpretation Comments WHITE BLOOD CELL COUNT (BEAKER) 3.3 K/ L 3.5-10.5 L (test code = 775) RED BLOOD CELL COUNT (BEAKER) 4.83 M/ L 4.63-6.08 (test code = 761) HEMOGLOBIN (BEAKER) (test code = 14.5 GM/DL 13.7-17.5 410) HEMATOCRIT (BEAKER) (test code = 43.6 % 40.1-51.0 411) MEAN CORPUSCULAR VOLUME (BEAKER) 90.3 fL 79.0-92.2 (test code = 753) MEAN CORPUSCULAR HEMOGLOBIN 30.0 pg 25.7-32.2 (BEAKER) (test code = 751) MEAN CORPUSCULAR HEMOGLOBIN CONC 33.3 GM/DL 32.3-36.5 (BEAKER) (test code = 752) RED CELL DISTRIBUTION WIDTH 17.0 % 11.6-14.4 H (BEAKER) (test code = 412) PLATELET COUNT (BEAKER) (test code 95 K/CU MM 150-450 L = 756) MEAN PLATELET VOLUME (BEAKER) 10.5 fL 9.4-12.4 (test code = 754) NUCLEATED RED BLOOD CELLS (BEAKER) 0 /100 WBC 0-0 (test code = 413) MR, ABDOMEN, [id number] 12:56:00Referring: Delores Barrow REPORT TECHNIQUE: MRI of the abdomen WITHOUT and WITH intravenous contrast. INDICATION: hcc s/p y 90. COMPARISON: MRI from 08/08/2018. FINDINGS: LOWER THORAX: Unremarkable. LIVER: Nodular, cirrhotic liver. The diffuse enhancement of a majority of the right hepatic lobe is most consistent with treatment related change. There is no residual enhancement in the branches of theright portal vein which are intrahepatic. 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 This does mild extension into the main portal vein. An area of wedge-shaped hyperenhancement segment II is likely perfusional. An area of hyperintense T2 weighted signal, arterial phase hyperenhancement, and washout in segment III measures 1.9 cm on series 15 image 66. BILIARY: The gallbladder is distended, possibly due to fasting.. No biliary ductal dilatation or filling defect.SPLEEN: 16.3 cm splenomegaly.PANCREAS: No focal masses or ductal dilatation. ADRENALS: No adrenal nodules.KIDNEYS/URETERS: No hydronephrosis or solid mass lesions. PERITONEUM/RETROPERITONEUM: No free fluid.LYMPH NODES: No lymphadenopathy.VESSELS: There is a new, partially occlusive thrombus in the inferior vena cava inferior to theentrance of the renal veins. This measures 10.6 cm in length. 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 Minimal thrombosis of the main portal vein. Conventional hepatic arterial anatomy. Multipleanterior abdominal collaterals. GI TRACT: No distention or wall thickening. BONES AND SOFT TISSUES: Bilateral gynecomastia. IMPRESSION: 1.Interval decrease in tumor volume with effective treatment of the intrahepatic tumor and the intrahepatic portions of the right portal vein. 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 This does extend minimally into the main portal vein. 2.An additional area of arterial phase hyperenhancement and washout in segment III measures 1.9 cm and is concerning for but not diagnostic of hepatocellular carcinoma. 3.There is a new inferior vena cava thrombus which measures 10.6 cm in length. 4.Cirrhosis with splenomegaly. The findings were discussed with Dr. Ashton on 03/06/2019 at 12:50 PM. Signed: Nyasia Angela MDReport Verified Date/Time: 03/06/2019 12:56:03 Reading Location: [address] Radiology Reading Room MR abdomen with/without IV [id number] 12:56:00Interface, External Ris In - 03/06/2019 12:58 PM CDTFINAL REPORT TECHNIQUE: MRI of the abdomen WITHOUT and WITH intravenous contrast. INDICATION: hcc s/p y 90. COMPARISON: MRI from 08/08/2018. FINDINGS: LOWER THORAX: Unremarkable. LIVER: Nodular, cirrhotic liver. The diffuse enhancement of a majority of the right hepatic lobe is most consistent with treatment related change. There is no residual enhancement in the branches of the right portal vein which are intrahepatic. 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 This does mild extension into the main portal vein. An area of wedge-shaped hyperenhancement segment II is likely perfusional. An area of hyperintense T2 weighted signal, arterial phase hyperenhancement, and washout in segment III measures 1.9 cm on series 15image 66. BILIARY: The gallbladder is distended, possibly due to fasting.. No biliary ductal dilatation or filling defect.SPLEEN: 16.3 cm splenomegaly.PANCREAS: No focal masses or ductal dilatation. ADRENALS: No adrenal nodules.KIDNEYS/URETERS: No hydronephrosis or solid mass lesions. PERITONEUM/RETROPERITONEUM: No free fluid.LYMPH NODES: No lymphadenopathy.VESSELS: There is a new, partially occlusive thrombus in the inferior vena cava inferior to the entrance of the renal veins. This measures 10.6 cm in length. 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 Minimal thrombosis of the main portal vein. Conventional hepatic arterial anatomy. Multiple anterior abdominal collaterals. GI TRACT: No distention or wall thickening. BONES AND SOFT TISSUES: Bilateral gynecomastia. IMPRESSION: 1.Interval decrease in tumor volume with effective treatment of the intrahepatic tumor and the intrahepatic portions of the right portal vein. 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 This does extend minimally into the main portal vein. 2.An additional area of arterial phase hyperenhancement and washout in segment III measures 1.9 cm and is concerning for but not diagnostic of hepatocellular carcinoma. 3.There is a new inferior vena cava thrombus which measures 10.6 cm in length. 4.Cirrhosis with splenomegaly. The findings were discussed with Dr. Ashton on 03/06/2019 at 12:50 PM. Signed: Nyasia Angela [facility] Verified Date/Time: 03/06/2019 12:56:03 Reading Location: [address] Radiology [facility] tumor [id number] 11:15:00 Test Item Value Reference Range Interpretation Comments Alpha-Fetoprotein (test code = 37582.0 ng/mL <10.0 H 1834-1) Lab Interpretation (test code = Abnormal 52774-7) [facility] [place]ET[place]AFP), TUMOR [id number] 11:15:00 Test Item Value Reference Range Interpretation Comments ALPHA-FETOPROTEIN (BEAKER) 13338.0 ng/mL <10.0 H (test code = 1094) Hepatic function [id number] 10:12:00 Test Item Value Reference Range Interpretation Comments Protein, Total (test code = 2885-2) 9.0 6.0- 8.3 gm/dL H Albumin (test code = 18078-1) 3.7 g/dL 3.5-5 Total Bilirubin (test code = 1.0 mg/dL 0.2-1.2 1974-2) Bilirubin, Direct (test code = 0.5 mg/dL 0.1-0.5 1967-7) Alkaline Phosphatase (test code = 102 U/L 40-150 6768-6) AST (test code = 1920-8) 49 U/L 5-34 H ALT (test code = 1742-6) 49 U/L 6-55 Lab Interpretation (test code = Abnormal 32992-3) [facility] [place] [id number] 10:12:00 Test Item Value Reference Range Interpretation Comments TOTAL PROTEIN (BEAKER) (test code = 9.0 gm/dL 6.0-8.3 H 770) ALBUMIN (BEAKER) (test code = 1145) 3.7 g/dL 3.5-5.0 BILIRUBIN TOTAL (BEAKER) (test code 1.0 mg/dL 0.2-1.2 = 377) BILIRUBIN DIRECT (BEAKER) (test 0.5 mg/dL 0.1-0.5 code = 706) ALKALINE PHOSPHATASE (BEAKER) (test 102 U/L 40-150 code = 346) AST (SGOT) (BEAKER) (test code = 49 U/L 5-34 H 353) ALT (SGPT) (BEAKER) (test code = 49 U/L 6-55 347) BASIC METABOLIC [id number] 10:12:00 Test Item Value Reference Range Interpretation Comments SODIUM (BEAKER) 133 meq/L 136-145 L (test code = 381) POTASSIUM (BEAKER) 4.0 meq/L 3.5-5.1 (test code = 379) CHLORIDE (BEAKER) 104 meq/L 98-107 (test code = 382) CO2 (BEAKER) (test 23 meq/L 22-29 code = 355) BLOOD UREA NITROGEN 19 mg/dL 7-21 (BEAKER) (test code = 354) CREATININE (BEAKER) 0.89 mg/dL 0.57-1.25 (test code = 358) GLUCOSE RANDOM 92 mg/dL 70-105 (BEAKER) (test code = 652) CALCIUM (BEAKER) 9.4 mg/dL 8.4-10.2 (test code = 697) EGFR (BEAKER) (test 88 mL/min/1.73 ESTIMA KE GFR IS code = 1092) sq m NOT ACCURATE CREATININE CLEARANCE IN PREDICTING GLOMERULAR FILTRATION RATE . ESTIMATED GFR I S NOT APPLICABLE FOR DIALYSIS PATIEN TS. [id number] 10:11:00 Test Item Value Reference Range Interpretation Comments POC-Creatinine (test 0.8 mg/dL 0.6-1.3 TESTED AT [facility] 6720 code = 1859) [place] [address] POC-EGFR (test code 99 mL/min/1.73M2 = 1860) [facility] [place]CT-[id number] 10:11:00 Test Item Value Reference Range Interpretation Comments POC-CREATININE 0.8 mg/dL 0.6-1.[address] [facility] 67[address] ([facility]) (test [place] code = 1859) [address] POC-EGFR (AKER) 99 mL/min/1.73M2 (test code = 1860) Pro-time/[id number] 09:56:00 Test Item Value Reference Range Interpretation Comments Protime (test code = 13.8 11.9- 14.2 5902-2) seconds INR (test code = 1.1 <=5.9 6301-6) DANTE (test code = DANTE) Effective 11/02/2018: PT Reference Range ChangeNew: 11.9-14.2 Previous: 11.7-14.7 RECOMMENDED COUMADIN/WARFARIN INR THERAPY RANGESSTANDARD DOSE: 2.0-3.0 Includes: PROPHYLAXIS for venous thrombosis, systemic embolization; TREATMENT for venous thrombosis and/or pulmonary embolus.HIGH RISK: Target INR is 2.5-3.5 for patients wiht mechanical heart valves. Lab Interpretation Normal (test code = 39872-0) [facility] [place]/[id number] 09:56:00 Test Item Value Reference Range Interpretation Comments PROTIME (TAMY) (test code = 13.8 seconds 11.9-14.2 759) INR (AKER) (test code = 370) 1.1 <=5.9 Effective 11/02/2018: PT Reference Range ChangeNew: 11.9-14.2 Previous: 11.7- 14.7RECOMMENDED COUMADIN/WARFARIN INR THERAPY RANGESSTANDARD DOSE: 2.0-3.0 Includes: PROPHYLAXIS for venous thrombosis, systemic embolization; TREATMENT for venous thrombosis and/or pulmonary embolus.HIGH RISK: Target INR is2.5-3.5 for patients wiht mechanical heart valves.CBC W/PLT COUNT & AUTO [id number] 09:41:00 Test Item Value Reference Range Interpretation Comments WHITE BLOOD CELL COUNT (AKER) 4.6 K/ L 3.5-10.5 (test code = 775) RED BLOOD CELL COUNT (AKER) 5.44 M/ L 4.63-6.08 (test code = 761) HEMOGLOBIN (BEAKER) (test code = 16.5 GM/DL 13.7-17.5 410) HEMATOCRIT (BEAKER) (test code = 48.6 % 40.1-51.0 411) MEAN CORPUSCULAR VOLUME (BEAKER) 89.3 fL 79.0-92.2 (test code = 753) MEAN CORPUSCULAR HEMOGLOBIN 30.3 pg 25.7-32.2 (BEAKER) (test code = 751) MEAN CORPUSCULAR HEMOGLOBIN CONC 34.0 GM/DL 32.3-36.5 (BEAKER) (test code = 752) RED CELL DISTRIBUTION WIDTH 17.2 % 11.6-14.4 H (BEAKER) (test code = 412) PLATELET COUNT (BEAKER) (test 117 K/CU MM 150-450 L code = 756) MEAN PLATELET VOLUME (BEAKER) 9.9 fL 9.4-12.4 (test code = 754) NUCLEATED RED BLOOD CELLS 0 /100 WBC 0-0 (BEAKER) (test code = 413) NEUTROPHILS RELATIVE PERCENT 68 % (BEAKER) (test code = 429) LYMPHOCYTES RELATIVE PERCENT 14 % (BEAKER) (test code = 430) MONOCYTES RELATIVE PERCENT 13 % (BEAKER) (test code = 431) EOSINOPHILS RELATIVE PERCENT 4 % (BEAKER) (test code = 432) BASOPHILS RELATIVE PERCENT 1 % (BEAKER) (test code = 437) NEUTROPHILS ABSOLUTE COUNT 3.15 K/ L 1.78-5.38 (BEAKER) (test code = 670) LYMPHOCYTES ABSOLUTE COUNT 0.63 K/ L 1.32-3.57 L (BEAKER) (test code = 414) MONOCYTES ABSOLUTE COUNT (BEAKER) 0.61 K/ L 0.30-0.82 (test code = 415) EOSINOPHILS ABSOLUTE COUNT 0.17 K/ L 0.04-0.54 (BEAKER) (test code = 416) BASOPHILS ABSOLUTE COUNT (BEAKER) 0.03 K/ L 0.01-0.08 (test code = 417) IMMATURE GRANULOCYTES-RELATIVE 0 % 0-1 PERCENT (BEAKER) (test code = 2801) RADIO'TX, INTRA-ARTERIAL PARTIC [id number] 09:28:00Referring: Coyd Barrow Reason for Exam:->liver cancerFINAL REPORT PROCEDURE: Y-90 microsphere therapy (SIR-Spheres) CPT CODE: 38536 CLINICAL INDICATION: Liver cancer PROTOCOL: 20 mCi of Y-90 labeled microspheres (SIR-Spheres) was administered via a hepatic artery catheter to the right lobe of the liver. IMPRESSION: Y-90 microsphere therapy Signed: Melissa Mathew Verified Date/Time: 12/07/2018 09:28:48 Reading Location: [address] [address] Nuc Med Reading Room [place] Y90 MICROSPHERES [id number] 09:28:00Interface, External Ris In - 12/07/2018 9:31 AM CDTFINAL REPORT PROCEDURE: Y-90 microsphere therapy (SIR-Spheres) CPT CODE: 11529 CLINICAL INDICATION: Liver cancer PROTOCOL: 20 mCi of Y-90 labeled microspheres (SIR-Spheres) was administered via a hepatic artery catheter to the right lobe of the liver. IMPRESSION: Y-90 microsphere therapy Signed: Melissa Mathew Verified Date/Time: 12/07/2018 09:28:48 Reading Location: [address] [address] Nuc Med [facility] 2018-12-06 16:50:00Referring: Cody Barrow Reason for Exam:->liver cancerFINAL REPORT PROCEDURE: TRACER DISTRIBUTION STUDY - SPECT (Bremsstrahlung) CPT CODE: 51365 CLINICAL INDICATION: Hepatocellular carcinoma PROTOCOL: 20.0 mCi of Y-90 microspheres (SIR-Spheres) had been previously administered. SPECT imaging of the liver and upper abdomen using Bremsstrahlung radiation was performed without additional injection of radiopharmaceutical. FINDINGS: Tracer distribution in the visualized portion of the liver is irregular. No significant activity is noted outside of the liver. IMPRESSION: Appropriate tracer distribution following right hepatic artery injection. Signed: Antelmo Jin Verified Date/Time: 12/06/2018 16:50:43 Reading Location: [address] [address] Nuc Med Reading Room NM tumor localization [id number] 16:50:00Interface, External Ris In - 12/06/2018 4:52 PM CDTFINAL REPORT PROCEDURE: TRACER DISTRIBUTION STUDY - SPECT (Bremsstrahlung) CPT CODE: 37681 CLINICAL INDICATION: Hepatocellular carcinoma PROTOCOL: 20.0 mCi of Y-90 microspheres (SIR-Spheres) had been previously administered. SPECT imaging of the liver and upper abdomen using Bremsstrahlung radiation was performed without additional injection of radiopharmaceutical. FINDINGS: Tracer distribution in the visualized portion of the liver is irregular. No significant activity is noted outside of the liver. IMPRESSION: Appropriate tracer distribution following right hepatic artery injection. Signed: Antelmo Jin MDReport Verified Date/Time: 12/06/2018 16:50:43 Reading Location: [address] [place] [address] Reading Room [facility] CenterANG, VISCERAL [id number] 14:59:00Referring: Cody Barrowjairon for Exam:->liver cancerFINAL REPORT Hepatic angiogram for SIR sphere infusion. History: Multifocal HCC. Modality: Ultrasound and sonography. file machine operator: Levi Min MD Financial Sales Associate: MD Romy (resident). Sedation: Moderate sedation was administered. 1 mg of Versed and 50 mcg of fentanyl IV was used for moderate sedation monitored under my direction. Total intra-service time of sedation was60 minutes. The patient's vital signs were monitored throughout the procedure and recorded in the patient's medical record by the nurse. Anesthesia: Two percent Lidocaine without epinephrine. Approach: Right common femoral artery common femoral artery. Estimated blood loss: < 5 cc. Specimen: None. Fluoroscopy Time: 1.8 min.Reference Air Kerma (Ka, r): 269.3 mGy. Technique: Informed written consent was obtained. Discussion of risks, benefits, and alternatives were made with the patient. The patient expressed understanding and agreed to proceed. A universal timeout was performed prior to starting the procedure. All elements maximal sterile barrier technique was utilized for this procedure, including utilization of sterile scrub solution for skin prep, a large sterile sheet to cover the areas of the patient that were not prepped, and hand hygiene, mask, head covering, and sterile gown for performing radiologist and scrub technologist. Initial ultrasound imagesdemonstrate patent right common femoral artery. Using ultrasound guidance, following acquisition of permanent images, the right common femoral artery was accessed using a 21-gauge micropuncture needle.A 0.018 inch wire was advanced into the abdominal aorta. The needle was exchanged for a 4 Egyptian micropuncture sheath. The micropuncture sheath was exchanged over a 0.035 Bentson wire for a 5 Egyptian x 10 cm vascular sheath. A 5 Egyptian Moore B catheter was used to cannulate the celiac axis. A DSA run was performed. Using a 2.8 Egyptian microcatheter and 0.016 inch microwire, the common hepatic artery and subsequently the right hepatic artery was cannulated. The microcatheter was advanced into the righthepatic artery proximal to its bifurcation. From this location Y-90 SIR spheres were administered byDr. Mathew of nuclear medicine service. The catheter was removed. Injection into the right femoral sheath demonstrates patency of the right common femoral artery and normal sheath placement. Arteriotomywas closed with Mynx closure device and hemostasis was obtained. Vital signs were monitored throughout the procedure by a nurse, and remained stable. The patient tolerated the procedure well and left the department in the same condition. Findings: 1. Celiac arteriography demonstrates patent conventional hepatic arterial anatomy, patent GDA, left gastric, and splenic arteries.2. Successful right hepatic transarteri al radio embolization via the right hepatic artery.3. Right femoral sheath injection enters patent right common femoral artery puncture amenable for closure device. Impression: 1. Successful, uncomplicated hepatic angiogram and right hepatic radio-embolization.2. Successfulhemostasis with closure device. Signed: Levi Min MDReport Verified Date/Time: 12/06/2018 14:59:07 Reading Location: [facility] P048 Angio Body Reading Room IR Visceral [id number] 14:59:00Interface, External Ris In - 12/06/2018 3:01 PM CDTFINAL REPORT Hepatic angiogram for SIR sphere infusion. History: Multifocal HCC. Modality: Ultrasound and sonography. file machine operator: Levi Min MD Financial Sales Associate: MD Romy (resident). Sedation: Moderate sedation was administered. 1 mg of Versed and 50 mcg of fentanyl IV was used for moderate sedation monitored under my direction. Total intra-service time of sedation was 60 minutes. The patient's vital signs were monitored throughout the procedure and recorded in the patient's medical record by the nurse. Anesthesia: Two percent Lidocaine without epinephrine. Approach: Right common femoral artery common femoral artery. Estimated blood loss: < 5 cc. Specimen: None. Fluoroscopy Time:1.8 min.Reference Air Kerma (Ka, r): 269.3 mGy. Technique: Informed written consent was obtained. Discussion of risks, benefits, and alternatives were made with the patient. The patient expressed understanding and agreed to proceed. A universal timeout was performed prior to starting the procedure.All elements maximal sterile barrier technique was utilized for this procedure, including utilization of sterile scrub solution for skin prep, a large sterile sheet to cover the areas of the patient that were not prepped, and hand hygiene, mask, head covering, and sterile gown for performing radiologist and scrub technologist. Initial ultrasound images demonstrate patent right common femoral artery. Using ultrasound guidance, following acquisition of permanent images, the right common femoral arterywas accessed using a 21-gauge micropuncture needle. A 0.018 inch wire was advanced into the abdominal aorta. The needle was exchanged for a 4 Egyptian micropuncture sheath. The micropuncture sheath was exchanged over a 0.035 Bentson wire for a 5 Egyptian x 10 cm vascular sheath. A 5 Egyptian Moore B catheter was used to cannulate the celiac axis. A DSA run was performed. Using a 2.8 Egyptian microcatheter and 0.016 inch microwire, the common hepatic artery and subsequently the right hepatic artery was cannul ated. The microcatheter was advanced into the right hepatic artery proximal to its bifurcation. Fromthis location Y-90 SIR spheres were administered by Dr. Mathew of nuclear medicine service. The catheter was removed. Injection into the right femoral sheath demonstrates patency of the right common femoral artery and normal sheath placement. Arteriotomy was closed with Mynx closure device and hemostasis was obtained. Vital signs were monitored throughout the procedure by a nurse, and remained stable. The patient tolerated the procedure well and left the department in the same condition. Findings: 1. Celiac arteriography demonstrates patent conventional hepatic arterial anatomy, patent GDA, left gastric, and sple obi arteries.2. Successful right hepatic transarterial radio embolization via the right hepatic artery.3. Right femoral sheath injection enters patent right common femoral artery puncture amenable for closure device. Impression: 1. Successful, uncomplicated hepatic angiogram and right hepatic radio-embolization.2. Successful hemostasis with closure device. Signed: Levi Min MDReport Verified Date/Time: 12/06/2018 14:59:07 Reading Location: [facility] P048 Angio Body Reading Room [facility] Comprehensive metabolic [id number] 09:32:00 Test Item Value Reference Range Interpretation Comments Protein, Total (test 7.7 6.0- 8.3 gm/dL code = 2885-2) Albumin (test code = 3.1 g/dL 3.5-5 L 61506-5) Alkaline Phosphatase 92 U/L 40-150 (test code = 6768-6) Total Bilirubin (test 0.5 mg/dL 0.2-1.2 code = 1975-2) Sodium (test code = 137 meq/L 773-105 7840-2) Potassium (test code = 4.2 meq/L 3.5-5.1 2823-3) Chloride (test code = 108 meq/L 98-107 H 2075-0) CO2 (test code = 25 meq/L 22-29 8-9) BUN (test code = 17 mg/dL 7-21 3094-0) Creatinine (test code = 0.83 mg/dL 0.57-1.25 2160-0) Glucose (test code = 120 mg/dL 70-105 H 2345-7) Calcium (test code = 8.9 mg/dL 8.4-10.2 86115-7) AST (test code = 34 U/L 5-34 1920-8) ALT (test code = 22 U/L 6-55 1742-6) EGFR (test code = 95 mL/min/1.[place] [address]-2) NOT ACCURATE CREATININE CLEARANCE IN PREDICTING GLOMERULAR FILTRATION RATE . ESTIMATED GFR I S NOT APPLICABLE FOR DIALYSIS PATIEN TS. Lab Interpretation Abnormal (test code = 37067-1) [facility] [place]PRE[facility] METABOL[facility] [id number] 09:32:00 Test Item Value Reference Range Interpretation Comments TOTAL PROTEIN 7.7 gm/dL 6.0-8.3 (BEAKER) (test code = 770) ALBUMIN (BEAKER) 3.1 g/dL 3.5-5.0 L (test code = 1145) ALKALINE PHOSPHATASE 92 U/L 40-150 (BEAKER) (test code = 346) BILIRUBIN TOTAL 0.5 mg/dL 0.2-1.2 (BEAKER) (test code = 377) SODIUM (BEAKER) (test 137 meq/L 136-145 code = 381) POTASSIUM (BEAKER) 4.2 meq/L 3.5-5.1 (test code = 379) CHLORIDE (BEAKER) 108 meq/L 98-107 H (test code = 382) CO2 (BEAKER) (test 25 meq/L 22-29 code = 355) BLOOD UREA NITROGEN 17 mg/dL 7-21 (BEAKER) (test code = 354) CREATININE (BEAKER) 0.83 mg/dL 0.57-1.25 (test code = 358) GLUCOSE RANDOM 120 mg/dL 70-105 H (BEAKER) (test code = 652) CALCIUM (BEAKER) 8.9 mg/dL 8.4-10.2 (test code = 697) AST (SGOT) (BEAKER) 34 U/L 5-34 (test code = 353) ALT (SGPT) (BEAKER) 22 U/L 6-55 (test code = 347) EGFR (BEAKER) (test 95 mL/min/1.73 ESTIMA KE GFR IS code = 1092) sq m NOT ACCURATE CREATININE CLEARANCE IN PREDICTING GLOMERULAR FILTRATION RATE . ESTIMATED GFR I S NOT APPLICABLE FOR DIALYSIS PATIEN TS. [id number] 09:14:00 Test Item Value Reference Range Interpretation Comments PARTIAL THROMBOPLASTIN TIME 28.3 seconds 22.5-36.0 (BEAKER) (test code = 760) PROTHROMBIN TIME/[id number] 09:13:00 Test Item Value Reference Range Interpretation Comments PROTIME (BEAKER) (test code = 18.0 seconds 11.9-14.2 H 759) INR (BEAKER) (test code = 370) 1.6 <=5.9 Effective 11/02/2018: PT Reference Range ChangeNew: 11.9-14.2 Previous: 11.7- 14.7RECOMMENDED COUMADIN/WARFARIN INR THERAPY RANGESSTANDARD DOSE: 2.0-3.0 Includes: PROPHYLAXIS for venous thrombosis, systemic embolization; TREATMENT for venous thrombosis and/or pulmonary embolus.HIGH RISK: Target INR is2.5-3.5 for patients wiht mechanical heart valves.CBC W/PLT COUNT & AUTO [id number] 09:06:00 Test Item Value Reference Range Interpretation Comments WHITE BLOOD CELL COUNT (BEAKER) 3.5 K/ L 3.5-10.5 (test code = 775) RED BLOOD CELL COUNT (BEAKER) 4.98 M/ L 4.63-6.08 (test code = 761) HEMOGLOBIN (BEAKER) (test code = 14.0 GM/DL 13.7-17.5 410) HEMATOCRIT (BEAKER) (test code = 44.2 % 40.1-51.0 411) MEAN CORPUSCULAR VOLUME (BEAKER) 88.8 fL 79.0-92.2 (test code = 753) MEAN CORPUSCULAR HEMOGLOBIN 28.1 pg 25.7-32.2 (BEAKER) (test code = 751) MEAN CORPUSCULAR HEMOGLOBIN CONC 31.7 GM/DL 32.3-36.5 L (BEAKER) (test code = 752) RED CELL DISTRIBUTION WIDTH 14.5 % 11.6-14.4 H (BEAKER) (test code = 412) PLATELET COUNT (BEAKER) (test code 99 K/CU MM 150-450 L = 756) MEAN PLATELET VOLUME (BEAKER) 9.7 fL 9.4-12.4 (test code = 754) NUCLEATED RED BLOOD CELLS (BEAKER) 0 /100 WBC 0-0 (test code = 413) NEUTROPHILS RELATIVE PERCENT 62 % (BEAKER) (test code = 429) LYMPHOCYTES RELATIVE PERCENT 21 % (BEAKER) (test code = 430) MONOCYTES RELATIVE PERCENT 13 % (BEAKER) (test code = 431) EOSINOPHILS RELATIVE PERCENT 4 % (BEAKER) (test code = 432) BASOPHILS RELATIVE PERCENT 0 % (BEAKER) (test code = 437) NEUTROPHILS ABSOLUTE COUNT 2.17 K/ L 1.78-5.38 (BEAKER) (test code = 670) LYMPHOCYTES ABSOLUTE COUNT 0.73 K/ L 1.32-3.57 L (BEAKER) (test code = 414) MONOCYTES ABSOLUTE COUNT (BEAKER) 0.45 K/ L 0.30-0.82 (test code = 415) EOSINOPHILS ABSOLUTE COUNT 0.13 K/ L 0.04-0.54 (BEAKER) (test code = 416) BASOPHILS ABSOLUTE COUNT (BEAKER) 0.01 K/ L 0.01-0.08 (test code = 417) IMMATURE GRANULOCYTES-RELATIVE 0 % 0-1 PERCENT (BEAKER) (test code = 2801) ANG, VISCERAL [id number] 16:55:00Referring: Anton Barrow for Y- 90Reason for Exam:->Mapping for Y-90FINAL REPORT Microaggregated Albumin Injection to evaluate for shunting priorto SIR sphere injection:Hepatic angiography and MAA embolization Indication: HCC, Y-90 planning Modality: Sonography and fluoroscopy. Sedation: Versed 2.0 mg and fentanyl . mcg was given intravenously for conscious sedation. Vital signs were monitored throughout the procedure by a nurse, and remained stable. Physician intra-service time was 30 minutes. Human Resource Officer:Jem Dupree MD. Financial Sales Associate: None. Approach: Rightcommon femoral artery Estimated blood loss: < 5 cc. Specimen: None. Fluoroscopy Time: 1.2 min.Reference Air Kerma (Ka, r): 59.9 mGy. Technique:Informed written consent was obtained. Discussion of risks, benefits, and alternatives were made with the patient. The patient expressed understanding and agreed to proceed. A universal timeout was performed prior to starting the procedure. All elements maximal sterile barrier technique was utilized for this procedure, including utilization of sterile scrub solution for skin prep, a large sterile sheet to cover the areasof the patient that were not prepped, and hand hygiene, mask, head covering, and sterile gown for performing radiologist and scrub technologist. The skin was anesthetized with lidocaine. The right common femoral artery was accessed using a 21-gauge micropuncture needle. A 0.018 inch wire was placed through the needle into the distal aorta. The needle was removed and a 4 Egyptian micropuncture sheath was placed, and the 0.018 wire was exchanged for 0.035 inch Kumar wire. A 5 Egyptian sheath was placed. A guiding catheter was placed at the origin of the right common femoral via a percutaneous right fem oral arterial approach. Subsequently a microcatheter was advanced into the right hepatic artery. Radioactive particles were embolized into the right hepatic artery with fluoroscopic monitoring in conjunction with nuclear medicine. The patient tolerated the procedure well. The patient's vital s igns were continuously monitored by the attending physician and a nurse. The patient subsequently went to nuclear medicine for further studies. Impression:Successful Tc 99 MAA particle position of the right hepatic artery. Signed: Jem Dupree Verified Date/Time: 11/11/2018 16:55:59 Read ing Location: [place] [id number] Angio Body Reading Room TUMOR LOCAL, PRE-MICROSPHERE [place] 2018-10-25 08:26:00Referring: Cody Barrow Mapping for Y-90 Right Lobe Reason for Exam:->Mapping for Y-90FINAL REPORT PROCEDURE: TRACER DISTRIBUTION STUDY, WHOLE BODY \\T\\ SPECT CPTCODE: 31897, 79357 CLINICAL INDICATION: HCC PROTOCOL: A total of 2.6 mCi of Tc-99m MAA was injected via an arterial catheter in right hepatic artery. Planar whole body and spot images of the chest and upper abdomen, as well as tomographic images of the liver and upper abdomen with limited CT correlation were obtained. Hepatopulmonary shunting was calculated by the geometric mean method. FINDINGS: There is irregular tracer distribution within the liver predominantly in segments five and six. There is mild tracer accumulation in the salivary glands, thyroid, stomach, and the kidneys/urinarysystem, consistent with expected free pertechnetate activity. Otherwise, there is no significant tracer distribution outside of the liver in the abdomen. Quantitative analysis indicates 7.22 % shunting of tracer to the lungs. IMPRESSION: 1. Tracer uptake in the liver is consistent with hepatic parenchymal disease and/or focal space occupying disease. 2. There is no abnormal extrahepatic activity. The patient is an acceptable candidate for injection of therapeutic microspheres by this criterion. 3. Shunting to the lungs is in an acceptable range for therapy. Signed: Melissa Mathew Verified Date/Time: 10/25/2018 08:26:24 Reading Location: [address] Reading Room BASIC METABOLIC [id number] 10:27:00 Test Item Value Reference Range Interpretation Comments SODIUM (BEAKER) 135 meq/L 136-145 L (test code = 381) POTASSIUM (BEAKER) 4.3 meq/L 3.5-5.1 (test code = 379) CHLORIDE (BEAKER) 109 meq/L 98-107 H (test code = 382) CO2 (BEAKER) (test 22 meq/L 22-29 code = 355) BLOOD UREA NITROGEN 19 mg/dL 7-21 (BEAKER) (test code = 354) CREATININE (BEAKER) 0.90 mg/dL 0.57-1.25 (test code = 358) GLUCOSE RANDOM 105 mg/dL 70-105 (BEAKER) (test code = 652) CALCIUM (BEAKER) 9.3 mg/dL 8.4-10.2 (test code = 697) EGFR (BEAKER) (test 87 mL/min/1.73 ESTIMA KE GFR IS code = 1092) sq m NOT ACCURATE CREATININE CLEARANCE IN PREDICTING GLOMERULAR FILTRATION RATE . ESTIMATED GFR I S NOT APPLICABLE FOR DIALYSIS PATIEN TS. [id number] 10:17:00 Test Item Value Reference Range Interpretation Comments PARTIAL THROMBOPLASTIN TIME 28.0 seconds 22.5-36.0 (BEAKER) (test code = 760) PROTHROMBIN [id number] 10:16:00 Test Item Value Reference Range Interpretation Comments PROTIME (BEAKER) (test code = 14.4 seconds 11.7-14.7 759) INR (BEAKER) (test code = 370) 1.2 <=5.9 RECOMMENDED COUMADIN/WARFARIN INR THERAPY RANGESSTANDARD DOSE: 2.0 - 3.0 Includes: PROPHYLAXIS forvenous thrombosis, systemic embolization; TREATMENT for venous thrombosis and/or pulmonary embolus.HIGH RISK: Target INR is 2.5-3.5 for patients with mechanical heart valves.CBC W/PLT COUNT & AUTO DIFFERENTIAL 2018-10-24 10:04:00 Test Item Value Reference Range Interpretation Comments WHITE BLOOD CELL COUNT (BEAKER) 5.4 K/ L 3.5-10.5 (test code = 775) RED BLOOD CELL COUNT (BEAKER) 4.72 M/ L 4.63-6.08 (test code = 761) HEMOGLOBIN (BEAKER) (test code = 14.2 GM/DL 13.7-17.5 410) HEMATOCRIT (BEAKER) (test code = 44.4 % 40.1-51.0 411) MEAN CORPUSCULAR VOLUME (BEAKER) 94.1 fL 79.0-92.2 H (test code = 753) MEAN CORPUSCULAR HEMOGLOBIN 30.1 pg 25.7-32.2 (BEAKER) (test code = 751) MEAN CORPUSCULAR HEMOGLOBIN CONC 32.0 GM/DL 32.3-36.5 L (BEAKER) (test code = 752) RED CELL DISTRIBUTION WIDTH 15.0 % 11.6-14.4 H (BEAKER) (test code = 412) PLATELET COUNT (BEAKER) (test 152 K/CU MM 150-450 code = 756) MEAN PLATELET VOLUME (BEAKER) 10.3 fL 9.4-12.4 (test code = 754) NUCLEATED RED BLOOD CELLS 0 /100 WBC 0-0 (BEAKER) (test code = 413) NEUTROPHILS RELATIVE PERCENT 72 % (BEAKER) (test code = 429) LYMPHOCYTES RELATIVE PERCENT 16 % (BEAKER) (test code = 430) MONOCYTES RELATIVE PERCENT 8 % (BEAKER) (test code = 431) EOSINOPHILS RELATIVE PERCENT 3 % (BEAKER) (test code = 432) BASOPHILS RELATIVE PERCENT 0 % (BEAKER) (test code = 437) NEUTROPHILS ABSOLUTE COUNT 3.88 K/ L 1.78-5.38 (BEAKER) (test code = 670) LYMPHOCYTES ABSOLUTE COUNT 0.87 K/ L 1.32-3.57 L (BEAKER) (test code = 414) MONOCYTES ABSOLUTE COUNT (BEAKER) 0.45 K/ L 0.30-0.82 (test code = 415) EOSINOPHILS ABSOLUTE COUNT 0.16 K/ L 0.04-0.54 (BEAKER) (test code = 416) BASOPHILS ABSOLUTE COUNT (BEAKER) 0.02 K/ L 0.01-0.08 (test code = 417) IMMATURE GRANULOCYTES-RELATIVE 0 % 0-1 PERCENT (BEAKER) (test code = 2801) AFB CULTURE + [id number] 16:02:00 Test Item Value Reference Range Interpretation Comments CULTURE (BEAKER) (test No acid-fast bacilli code = 1095) isolated in 42 days AFB SMEAR (BEAKER) No acid fast bacilli (test code = 994) seen COMPREHENSIVE METABOLIC [id number] 12:43:00 Test Item Value Reference Range Interpretation Comments TOTAL PROTEIN 9.4 gm/dL 6.0-8.3 H (BEAKER) (test code = 770) ALBUMIN (BEAKER) 3.2 g/dL 3.5-5.0 L (test code = 1145) ALKALINE PHOSPHATASE 123 U/L 40-150 (BEAKER) (test code = 346) BILIRUBIN TOTAL 1.0 mg/dL 0.2-1.2 (BEAKER) (test code = 377) SODIUM (BEAKER) (test 132 meq/L 136-145 L code = 381) POTASSIUM (BEAKER) 4.3 meq/L 3.5-5.1 (test code = 379) CHLORIDE (BEAKER) 102 meq/L 98-107 (test code = 382) CO2 (BEAKER) (test 26 meq/L 22-29 code = 355) BLOOD UREA NITROGEN 14 mg/dL 7-21 (BEAKER) (test code = 354) CREATININE (BEAKER) 0.95 mg/dL 0.57-1.25 (test code = 358) GLUCOSE RANDOM 102 mg/dL 70-105 (BEAKER) (test code = 652) CALCIUM (BEAKER) 9.4 mg/dL 8.4-10.2 (test code = 697) AST (SGOT) (BEAKER) 67 U/L 5-34 H (test code = 353) ALT (SGPT) (BEAKER) 37 U/L 6-55 (test code = 347) EGFR (BEAKER) (test 82 mL/min/1.73 ESTIMA KE GFR IS code = 1092) sq m NOT ACCURATE CREATININE CLEARANCE IN PREDICTING GLOMERULAR FILTRATION RATE . ESTIMATED GFR I S NOT APPLICABLE FOR DIALYSIS PATIEN TS. BILIRUBIN, [id number] 12:43:00 Test Item Value Reference Range Interpretation Comments BILIRUBIN DIRECT (BEAKER) (test 0.5 mg/dL 0.1-0.5 code = 706) PROTHROMBIN [id number] 12:27:00 Test Item Value Reference Range Interpretation Comments PROTIME (BEAKER) (test code = 14.8 seconds 11.7-14.7 H 759) INR (BEAKER) (test code = 370) 1.1 <=5.9 RECOMMENDED COUMADIN/WARFARIN INR THERAPY RANGESSTANDARD DOSE: 2.0 - 3.0 Includes: PROPHYLAXIS forvenous thrombosis, systemic embolization; TREATMENT for venous thrombosis and/or pulmonary embolus.HIGH RISK: Target INR is 2.5-3.5 for patients with mechanical heart valves.CBC W/PLT COUNT & AUTO DIFFERENTIAL 2018-09-21 12:22:00 Test Item Value Reference Range Interpretation Comments WHITE BLOOD CELL COUNT (BEAKER) 5.9 K/ L 3.5-10.5 (test code = 775) RED BLOOD CELL COUNT (BEAKER) 4.24 M/ L 4.63-6.08 L (test code = 761) HEMOGLOBIN (BEAKER) (test code = 13.0 GM/DL 13.7-17.5 L 410) HEMATOCRIT (BEAKER) (test code = 40.5 % 40.1-51.0 411) MEAN CORPUSCULAR VOLUME (BEAKER) 95.5 fL 79.0-92.2 H (test code = 753) MEAN CORPUSCULAR HEMOGLOBIN 30.7 pg 25.7-32.2 (BEAKER) (test code = 751) MEAN CORPUSCULAR HEMOGLOBIN CONC 32.1 GM/DL 32.3-36.5 L (BEAKER) (test code = 752) RED CELL DISTRIBUTION WIDTH 16.6 % 11.6-14.4 H (BEAKER) (test code = 412) PLATELET COUNT (BEAKER) (test 147 K/CU MM 150-450 L code = 756) MEAN PLATELET VOLUME (BEAKER) 10.0 fL 9.4-12.4 (test code = 754) NUCLEATED RED BLOOD CELLS 0 /100 WBC 0-0 (BEAKER) (test code = 413) NEUTROPHILS RELATIVE PERCENT 68 % (BEAKER) (test code = 429) LYMPHOCYTES RELATIVE PERCENT 18 % (BEAKER) (test code = 430) MONOCYTES RELATIVE PERCENT 8 % (BEAKER) (test code = 431) EOSINOPHILS RELATIVE PERCENT 5 % (BEAKER) (test code = 432) BASOPHILS RELATIVE PERCENT 1 % (BEAKER) (test code = 437) NEUTROPHILS ABSOLUTE COUNT 4.00 K/ L 1.78-5.38 (BEAKER) (test code = 670) LYMPHOCYTES ABSOLUTE COUNT 1.09 K/ L 1.32-3.57 L (BEAKER) (test code = 414) MONOCYTES ABSOLUTE COUNT (BEAKER) 0.50 K/ L 0.30-0.82 (test code = 415) EOSINOPHILS ABSOLUTE COUNT 0.28 K/ L 0.04-0.54 (BEAKER) (test code = 416) BASOPHILS ABSOLUTE COUNT (BEAKER) 0.03 K/ L 0.01-0.08 (test code = 417) IMMATURE GRANULOCYTES-RELATIVE 0 % 0-1 PERCENT (BEAKER) (test code = 2801) FUNGUS CULTURE + [id number] 11:43:00 Test Item Value Reference Range Interpretation Comments CULTURE (BEAKER) (test No fungus isolated in code = 1095) 28 days FUNGUS SMEAR (BEAKER) No fungi seen (test code = 1406) AFB CULTURE + [id number] 13:22:00 Test Item Value Reference Range Interpretation Comments CULTURE (BEAKER) (test No acid-fast bacilli code = 1095) isolated in 42 days AFB SMEAR (BEAKER) No acid fast bacilli (test code = 994) seen SURGICALLY OBTAINED CULTURE + GRAM [id number] 17:22:00 Test Item Value Reference Range Interpretation Comments CULTURE (BEAKER) PSEUDOMONAS A 1+ Pseudomo issa (test code = 1095) AERUGINOSA aeruginos a Amikacin (test code S = 1) Aztreonam (test code R = 32) Cefepime (test code S = 51) Ceftazidime (test R code = 27) Ciprofloxacin (test S code = 7) Gentamicin (test S code = 18) Imipenem (test code S = 19) Levofloxacin (test S code = 22) Meropenem (test code S = 34) Piperacillin (test R code = 24) Piperacillin + R Tazobactam (test code = 29) Tobramycin (test S code = 25) CULTURE (BEAKER) ACINETOBACTER A <1+ (test code = 1095) BAUMANNII [place] cter COMPLEX baumannii complex Amikacin (test code S = 1) Ampicillin + S Sulbactam (test code = 6) Cefepime (test code S = 51) Ceftazidime (test S code = 27) Ceftriaxone (test S code = 52) Ciprofloxacin (test S code = 7) Gentamicin (test S code = 18) Imipenem (test code S = 19) Levofloxacin (test S code = 22) Meropenem (test code S = 34) Piperacillin (test S code = 24) Piperacillin + S Tazobactam (test code = 29) Tetracycline (test S code = 2) Tobramycin (test S code = 25) Trimethoprim + S Sulfamethoxazole (test code = 47) Aztreonam (test code = 32) Cefepime (test code Susceptible 0-8 , S = 51) Resistant <0 or >8 Ceftazidime (test Susceptible 0-8 , S code = 27) Resistant <0 or >8 Ceftriaxone (test Susceptible 0-8 , S code = 52) Resistant <0 or >8 Ciprofloxacin (test Susceptible 0-1 , S code = 7) Resistant <0 or >1 Gentamicin (test Susceptible 0-4 , S code = 18) Resistant <0 or >4 Imipenem (test code Susceptible 0-2 , S = 19) Resistant <0 or >2 Levofloxacin (test Susceptible 0-2 , S code = 22) Resistant <0 or >2 Meropenem (test code Susceptible 0-2 , S = 34) Resistant <0 or >2 Piperacillin (test Susceptible 0-16 , S code = 24) Resistant <0 or >16 Piperacillin + Susceptible 0-16 , S Tazobactam (test Resistant <0 or code = 29) >16 Tetracycline (test Susceptible 0-4 , S code = 2) Resistant <0 or >4 Tobramycin (test Susceptible 0-4 , S code = 25) Resistant <0 or >4 Trimethoprim + Susceptible 0-40 , S Sulfamethoxazole Resistant <0 or (test code = 47) >40 GRAM STAIN RESULT <1+ WBCs (BEAKER) (test code = 1123) GRAM STAIN RESULT No organisms (BEAKER) (test code seen = 133154) Tigecycline (test Susceptible >0-0 , code = 133) No Interpretations Established <=0 or >0 GRAM STAIN RESULT No organisms (BEAKER) (test code seen = 573739) FUNGUS CULTURE + [id number] 16:59:00 Test Item Value Reference Range Interpretation Comments CULTURE (BEAKER) (test No fungus isolated in code = 1095) 28 days FUNGUS SMEAR (BEAKER) No fungi seen (test code = 1406) BODY FLUID CULTURE + GRAM [id number] 09:03:00 Test Item Value Reference Range Interpretation Comments CULTURE (BEAKER) (test No growth code = 1095) GRAM STAIN RESULT No White blood cells (BEAKER) (test code = seen 1123) GRAM STAIN RESULT No organisms seen (BEAKER) (test code = 15774) [id number] 06:18:00 Test Item Value Reference Range Interpretation Comments MAGNESIUM (BEAKER) (test code = 1.6 mg/dL 1.6-2.6 627) HEPATIC FUNCTION [id number] 06:18:00 Test Item Value Reference Range Interpretation Comments TOTAL PROTEIN (BEAKER) (test code = 7.0 gm/dL 6.0-8.3 770) ALBUMIN (BEAKER) (test code = 1145) 3.2 g/dL 3.5-5.0 L BILIRUBIN TOTAL (BEAKER) (test code 1.3 mg/dL 0.2-1.2 H = 377) BILIRUBIN DIRECT (BEAKER) (test 0.8 mg/dL 0.1-0.5 H code = 706) ALKALINE PHOSPHATASE (BEAKER) (test 119 U/L 40-150 code = 346) AST (SGOT) (BEAKER) (test code = 37 U/L 5-34 H 353) ALT (SGPT) (BEAKER) (test code = 12 U/L 6-55 347) COMPREHENSIVE METABOLIC [id number] 06:18:00 Test Item Value Reference Range Interpretation Comments TOTAL PROTEIN 7.0 gm/dL 6.0-8.3 (BEAKER) (test code = 770) ALBUMIN (BEAKER) 3.2 g/dL 3.5-5.0 L (test code = 1145) ALKALINE PHOSPHATASE 119 U/L 40-150 (BEAKER) (test code = 346) BILIRUBIN TOTAL 1.3 mg/dL 0.2-1.2 H (BEAKER) (test code = 377) SODIUM (BEAKER) (test 134 meq/L 136-145 L code = 381) POTASSIUM (BEAKER) 3.7 meq/L 3.5-5.1 (test code = 379) CHLORIDE (BEAKER) 98 meq/L 98-107 (test code = 382) CO2 (BEAKER) (test 28 meq/L 22-29 code = 355) BLOOD UREA NITROGEN 9 mg/dL 7-21 (BEAKER) (test code = 354) CREATININE (BEAKER) 0.83 mg/dL 0.57-1.25 (test code = 358) GLUCOSE RANDOM 95 mg/dL 70-105 (BEAKER) (test code = 652) CALCIUM (BEAKER) 8.7 mg/dL 8.4-10.2 (test code = 697) AST (SGOT) (BEAKER) 37 U/L 5-34 H (test code = 353) ALT (SGPT) (BEAKER) 12 U/L 6-55 (test code = 347) EGFR (BEAKER) (test 95 mL/min/1.73 ESTIMA KE GFR IS code = 1092) sq m NOT ACCURATE CREATININE CLEARANCE IN PREDICTING GLOMERULAR FILTRATION RATE . ESTIMATED GFR I S NOT APPLICABLE FOR DIALYSIS PATIEN TS. CBC W/PLT COUNT & AUTO [id number] 05:53:00 Test Item Value Reference Range Interpretation Comments WHITE BLOOD CELL COUNT (BEAKER) 4.0 K/ L 3.5-10.5 (test code = 775) RED BLOOD CELL COUNT (BEAKER) 3.11 M/ L 4.63-6.08 L (test code = 761) HEMOGLOBIN (BEAKER) (test code = 9.8 GM/DL 13.7-17.5 L 410) HEMATOCRIT (BEAKER) (test code = 29.3 % 40.1-51.0 L 411) MEAN CORPUSCULAR VOLUME (BEAKER) 94.2 fL 79.0-92.2 H (test code = 753) MEAN CORPUSCULAR HEMOGLOBIN 31.5 pg 25.7-32.2 (BEAKER) (test code = 751) MEAN CORPUSCULAR HEMOGLOBIN CONC 33.4 GM/DL 32.3-36.5 (BEAKER) (test code = 752) RED CELL DISTRIBUTION WIDTH 18.2 % 11.6-14.4 H (BEAKER) (test code = 412) PLATELET COUNT (BEAKER) (test 219 K/CU MM 150-450 code = 756) MEAN PLATELET VOLUME (BEAKER) 9.9 fL 9.4-12.4 (test code = 754) NUCLEATED RED BLOOD CELLS 0 /100 WBC 0-0 (BEAKER) (test code = 413) NEUTROPHILS RELATIVE PERCENT 58 % (BEAKER) (test code = 429) LYMPHOCYTES RELATIVE PERCENT 20 % (BEAKER) (test code = 430) MONOCYTES RELATIVE PERCENT 18 % (BEAKER) (test code = 431) EOSINOPHILS RELATIVE PERCENT 2 % (BEAKER) (test code = 432) BASOPHILS RELATIVE PERCENT 0 % (BEAKER) (test code = 437) NEUTROPHILS ABSOLUTE COUNT 2.32 K/ L 1.78-5.38 (BEAKER) (test code = 670) LYMPHOCYTES ABSOLUTE COUNT 0.81 K/ L 1.32-3.57 L (BEAKER) (test code = 414) MONOCYTES ABSOLUTE COUNT (BEAKER) 0.73 K/ L 0.30-0.82 (test code = 415) EOSINOPHILS ABSOLUTE COUNT 0.08 K/ L 0.04-0.54 (BEAKER) (test code = 416) BASOPHILS ABSOLUTE COUNT (BEAKER) 0.01 K/ L 0.01-0.08 (test code = 417) IMMATURE GRANULOCYTES-RELATIVE 1 % 0-1 PERCENT (BEAKER) (test code = 2801) POCT-GLUCOSE [id number] 21:26:00 Test Item Value Reference Range Interpretation Comments POC-GLUCOSE METER 148 mg/dL 70-110 H TESTED AT [facility] 6720 (BEAKER) (test code = JOHANA DUPREE SC 1538) [address] ANAEROBIC [id number] 19:51:00 Test Item Value Reference Range Interpretation Comments CULTURE (BEAKER) (test No anaerobes isolated code = 1095) BODY FLUID CELL COUNT WITH [id number] 18:29:00 Test Item Value Reference Range Interpretation Comments APPEARANCE FLUID (BEAKER) Slightly Bloody Clear A (test code = 510) COLOR FLUID (BEAKER) (test [place] Colorless, Straw A code = 511) RBC FLUID (BEAKER) (test 18536 /cu mm <=1 H code = 513) ADJUSTED WBC FLUID (BEAKER) 110 /cu mm <=5 H (test code = 1691) LINING CELLS (BEAKER) (test 0 /cu mm <=1 code = 1590) NEUTROPHILS FLUID (BEAKER) 28 % (test code = 1656) LYMPHS FLUID (BEAKER) (test 36 % code = 488) MONO/MACROPHAGE FLUID 34 % (BEAKER) (test code = 489) EOSINOPHILS FLUID (BEAKER) 2 % (test code = 491) BASO FLUID (BEAKER) (test 0 % code = 492) CONTAINER BODY FLUID EDTA Tube (BEAKER) (test code = 2873) U/S, [id number] 17:48:00Reason for exam:->large volume ascites FINAL REPORT Ultrasound guided paracentesis, 08/22/2018. Clinical History:Ascites. Sedation: None. Human Resource Officer: Jem Dupree MD Financial Sales Associate: None. Estimated Blood Loss: < 1 cc. Specimen: 100 cc of serosanguineous fluid, samples sent to laboratory. [place]: Informed consent was obtained. The risks of pain, bleeding, infection, bowel perforation,injury to adjacent structures, and adverse medication reactions were discussed with the patient. After informed consent was obtained, the patient's abdomen was scanned. The right lower quadrant of th e abdomen was selected for paracentesis. After the largest fluid pocket area was marked, and the anterior abdominal wall was evaluated with color Doppler to exclude presence of blood vessels traversing the area, the skin was prepped and draped in the usual sterile manner. After local anesthesia was achieved with 1% lidocaine, a 5 Egyptian one-step catheter was advanced into the peritoneal cavity under ultrasound guidance. After completion of drainage, the catheter was removed. There was no evidence of complication. The fluid is multiloculated, only a small amount of fluid could be aspirated. Impression:Successful ultrasound guided paracentesis. Signed: Jem Dupree MDReport Verified Date/Time: 08/22/2018 17:48:28 Reading Location: [address] Ultrasound Reading Room [id number] 13:44:00 Test Item Value Reference Range Interpretation Comments PROTIME (BEAKER) (test code = 16.5 seconds 11.7-14.7 H 759) INR (BEAKER) (test code = 370) 1.3 <=5.9 PARTIAL THROMBOPLASTIN TIME 36.5 seconds 22.5-36.0 H (BEAKER) (test code = 760) RECOMMENDED COUMADIN/WARFARIN INR THERAPY RANGESSTANDARD DOSE: 2.0 - 3.0 Includes: PROPHYLAXIS forvenous thrombosis, systemic embolization; TREATMENT for venous thrombosis and/or pulmonary embolus.HIGH RISK: Target INR is 2.5-3.5 for patients with mechanical heart valves.POCT-GLUCOSE [id number] 11:56:00 Test Item Value Reference Range Interpretation Comments POC-GLUCOSE METER 113 mg/dL 70-110 H TESTED AT [facility] 6720 (BEAKER) (test code = JOHANA Gan DUPREE SC 1538) [address] BODY FLUID CULTURE + GRAM [id number] 11:47:00 Test Item Value Reference Range Interpretation Comments CULTURE (BEAKER) (test No growth code = 1095) GRAM STAIN RESULT 2+ White blood cells (BEAKER) (test code = seen 1123) GRAM STAIN RESULT No organisms seen (BEAKER) (test code = 54131) HEPATIC FUNCTION [id number] 06:12:00 Test Item Value Reference Range Interpretation Comments TOTAL PROTEIN (BEAKER) (test code = 6.8 gm/dL 6.0-8.3 770) ALBUMIN (BEAKER) (test code = 1145) 3.0 g/dL 3.5-5.0 L BILIRUBIN TOTAL (BEAKER) (test code 1.3 mg/dL 0.2-1.2 H = 377) BILIRUBIN DIRECT (BEAKER) (test 0.8 mg/dL 0.1-0.5 H code = 706) ALKALINE PHOSPHATASE (BEAKER) (test 126 U/L 40-150 code = 346) AST (SGOT) (BEAKER) (test code = 31 U/L 5-34 353) ALT (SGPT) (BEAKER) (test code = 10 U/L 6-55 347) COMPREHENSIVE METABOLIC [id number] 06:12:00 Test Item Value Reference Range Interpretation Comments TOTAL PROTEIN 6.8 gm/dL 6.0-8.3 (BEAKER) (test code = 770) ALBUMIN (BEAKER) 3.0 g/dL 3.5-5.0 L (test code = 1145) ALKALINE PHOSPHATASE 126 U/L 40-150 (BEAKER) (test code = 346) BILIRUBIN TOTAL 1.3 mg/dL 0.2-1.2 H (BEAKER) (test code = 377) SODIUM (BEAKER) (test 131 meq/L 136-145 L code = 381) POTASSIUM (BEAKER) 3.5 meq/L 3.5-5.1 (test code = 379) CHLORIDE (BEAKER) 98 meq/L 98-107 (test code = 382) CO2 (BEAKER) (test 26 meq/L 22-29 code = 355) BLOOD UREA NITROGEN 8 mg/dL 7-21 (BEAKER) (test code = 354) CREATININE (BEAKER) 0.85 mg/dL 0.57-1.25 (test code = 358) GLUCOSE RANDOM 84 mg/dL 70-105 (BEAKER) (test code = 652) CALCIUM (BEAKER) 8.4 mg/dL 8.4-10.2 (test code = 697) AST (SGOT) (BEAKER) 31 U/L 5-34 (test code = 353) ALT (SGPT) (BEAKER) 10 U/L 6-55 (test code = 347) EGFR (BEAKER) (test 93 mL/min/1.73 ESTIMA KE GFR IS code = 1092) sq m NOT ACCURATE CREATININE CLEARANCE IN PREDICTING GLOMERULAR FILTRATION RATE . ESTIMATED GFR I S NOT APPLICABLE FOR DIALYSIS PATIEN TS. [id number] 06:11:00 Test Item Value Reference Range Interpretation Comments MAGNESIUM (BEAKER) (test code = 1.6 mg/dL 1.6-2.6 627) CBC W/PLT COUNT & AUTO [id number] 05:27:00 Test Item Value Reference Range Interpretation Comments WHITE BLOOD CELL COUNT (BEAKER) 3.8 K/ L 3.5-10.5 (test code = 775) RED BLOOD CELL COUNT (BEAKER) 3.07 M/ L 4.63-6.08 L (test code = 761) HEMOGLOBIN (BEAKER) (test code = 9.7 GM/DL 13.7-17.5 L 410) HEMATOCRIT (BEAKER) (test code = 28.9 % 40.1-51.0 L 411) MEAN CORPUSCULAR VOLUME (BEAKER) 94.1 fL 79.0-92.2 H (test code = 753) MEAN CORPUSCULAR HEMOGLOBIN 31.6 pg 25.7-32.2 (BEAKER) (test code = 751) MEAN CORPUSCULAR HEMOGLOBIN CONC 33.6 GM/DL 32.3-36.5 (BEAKER) (test code = 752) RED CELL DISTRIBUTION WIDTH 18.3 % 11.6-14.4 H (BEAKER) (test code = 412) PLATELET COUNT (BEAKER) (test 225 K/CU MM 150-450 code = 756) MEAN PLATELET VOLUME (BEAKER) 10.0 fL 9.4-12.4 (test code = 754) NUCLEATED RED BLOOD CELLS 0 /100 WBC 0-0 (BEAKER) (test code = 413) NEUTROPHILS RELATIVE PERCENT 58 % (BEAKER) (test code = 429) LYMPHOCYTES RELATIVE PERCENT 21 % (BEAKER) (test code = 430) MONOCYTES RELATIVE PERCENT 17 % (BEAKER) (test code = 431) EOSINOPHILS RELATIVE PERCENT 3 % (BEAKER) (test code = 432) BASOPHILS RELATIVE PERCENT 0 % (BEAKER) (test code = 437) NEUTROPHILS ABSOLUTE COUNT 2.20 K/ L 1.78-5.38 (BEAKER) (test code = 670) LYMPHOCYTES ABSOLUTE COUNT 0.81 K/ L 1.32-3.57 L (BEAKER) (test code = 414) MONOCYTES ABSOLUTE COUNT (BEAKER) 0.64 K/ L 0.30-0.82 (test code = 415) EOSINOPHILS ABSOLUTE COUNT 0.10 K/ L 0.04-0.54 (BEAKER) (test code = 416) BASOPHILS ABSOLUTE COUNT (BEAKER) 0.01 K/ L 0.01-0.08 (test code = 417) IMMATURE GRANULOCYTES-RELATIVE 1 % 0-1 PERCENT (BEAKER) (test code = 2801) POCT-GLUCOSE [id number] 21:23:00 Test Item Value Reference Range Interpretation Comments POC-GLUCOSE METER 101 mg/dL 70-110 TESTED AT [facility] [address] [facility] (test code = [place] 1538) [id number] POCT-GLUCOSE [id number] 17:13:00 Test Item Value Reference Range Interpretation Comments POC-GLUCOSE METER 107 mg/dL 70-110 TESTED AT [facility] [address] [facility] (test code = [place] 1538) [id number] POCT-GLUCOSE [id number] 12:47:00 Test Item Value Reference Range Interpretation Comments POC-GLUCOSE METER 111 mg/dL 70-110 H TESTED AT [facility] [address] (BEAKER) (test code = JOH[place] 1538) [id number] POCT-GLUCOSE [id number] 08:06:00 Test Item Value Reference Range Interpretation Comments POC-GLUCOSE METER 112 mg/dL 70-110 H TESTED AT [facility] [address] (BEAKER) (test code = [place]OH[place] 1538) [id number] 06:13:00 Test Item Value Reference Range Interpretation Comments MAGNESIUM (BEAKER) (test code = 1.4 mg/dL 1.6-2.6 L 627) HEPATIC FUNCTION [id number] 06:13:00 Test Item Value Reference Range Interpretation Comments TOTAL PROTEIN (BEAKER) (test code = 6.8 gm/dL 6.0-8.3 770) ALBUMIN (BEAKER) (test code = 1145) 2.2 g/dL 3.5-5.0 L BILIRUBIN TOTAL (BEAKER) (test code 1.0 mg/dL 0.2-1.2 = 377) BILIRUBIN DIRECT (BEAKER) (test 0.7 mg/dL 0.1-0.5 H code = 706) ALKALINE PHOSPHATASE (BEAKER) (test 159 U/L 40-150 H code = 346) AST (SGOT) (BEAKER) (test code = 51 U/L 5-34 H 353) ALT (SGPT) (BEAKER) (test code = 13 U/L 6-55 347) COMPREHENSIVE METABOLIC [id number] 06:13:00 Test Item Value Reference Range Interpretation Comments TOTAL PROTEIN 6.8 gm/dL 6.0-8.3 (BEAKER) (test code = 770) ALBUMIN (BEAKER) 2.2 g/dL 3.5-5.0 L (test code = 1145) ALKALINE PHOSPHATASE 159 U/L 40-150 H (BEAKER) (test code = 346) BILIRUBIN TOTAL 1.0 mg/dL 0.2-1.2 (BEAKER) (test code = 377) SODIUM (BEAKER) (test 130 meq/L 136-145 L code = 381) POTASSIUM (BEAKER) 4.1 meq/L 3.5-5.1 (test code = 379) CHLORIDE (BEAKER) 101 meq/L 98-107 (test code = 382) CO2 (BEAKER) (test 22 meq/L 22-29 code = 355) BLOOD UREA NITROGEN 9 mg/dL 7-21 (BEAKER) (test code = 354) CREATININE (BEAKER) 0.97 mg/dL 0.57-1.25 (test code = 358) GLUCOSE RANDOM 98 mg/dL 70-105 (BEAKER) (test code = 652) CALCIUM (BEAKER) 8.0 mg/dL 8.4-10.2 L (test code = 697) AST (SGOT) (BEAKER) 51 U/L 5-34 H (test code = 353) ALT (SGPT) (BEAKER) 13 U/L 6-55 (test code = 347) EGFR (BEAKER) (test 80 mL/min/1.73 ESTIMA KE GFR IS code = 1092) sq m NOT ACCURATE CREATININE CLEARANCE IN PREDICTING GLOMERULAR FILTRATION RATE . ESTIMATED GFR I S NOT APPLICABLE FOR DIALYSIS PATIEN TS. CBC W/PLT COUNT & AUTO [id number] 05:34:00 Test Item Value Reference Range Interpretation Comments WHITE BLOOD CELL COUNT (BEAKER) 5.9 K/ L 3.5-10.5 (test code = 775) RED BLOOD CELL COUNT (BEAKER) 3.51 M/ L 4.63-6.08 L (test code = 761) HEMOGLOBIN (BEAKER) (test code = 11.1 GM/DL 13.7-17.5 L 410) HEMATOCRIT (BEAKER) (test code = 33.8 % 40.1-51.0 L 411) MEAN CORPUSCULAR VOLUME (BEAKER) 96.3 fL 79.0-92.2 H (test code = 753) MEAN CORPUSCULAR HEMOGLOBIN 31.6 pg 25.7-32.2 (BEAKER) (test code = 751) MEAN CORPUSCULAR HEMOGLOBIN CONC 32.8 GM/DL 32.3-36.5 (BEAKER) (test code = 752) RED CELL DISTRIBUTION WIDTH 18.7 % 11.6-14.4 H (BEAKER) (test code = 412) PLATELET COUNT (BEAKER) (test 296 K/CU MM 150-450 code = 756) MEAN PLATELET VOLUME (BEAKER) 9.9 fL 9.4-12.4 (test code = 754) NUCLEATED RED BLOOD CELLS 0 /100 WBC 0-0 (BEAKER) (test code = 413) NEUTROPHILS RELATIVE PERCENT 63 % (BEAKER) (test code = 429) LYMPHOCYTES RELATIVE PERCENT 21 % (BEAKER) (test code = 430) MONOCYTES RELATIVE PERCENT 14 % (BEAKER) (test code = 431) EOSINOPHILS RELATIVE PERCENT 2 % (BEAKER) (test code = 432) BASOPHILS RELATIVE PERCENT 0 % (BEAKER) (test code = 437) NEUTROPHILS ABSOLUTE COUNT 3.67 K/ L 1.78-5.38 (BEAKER) (test code = 670) LYMPHOCYTES ABSOLUTE COUNT 1.20 K/ L 1.32-3.57 L (BEAKER) (test code = 414) MONOCYTES ABSOLUTE COUNT (BEAKER) 0.79 K/ L 0.30-0.82 (test code = 415) EOSINOPHILS ABSOLUTE COUNT 0.14 K/ L 0.04-0.54 (BEAKER) (test code = 416) BASOPHILS ABSOLUTE COUNT (BEAKER) 0.02 K/ L 0.01-0.08 (test code = 417) IMMATURE GRANULOCYTES-RELATIVE 1 % 0-1 PERCENT (BEAKER) (test code = 2801) POCT-GLUCOSE [id number] 22:14:00 Test Item Value Reference Range Interpretation Comments POC-GLUCOSE METER 120 mg/dL 70-110 H TESTED AT [place] [address] ([facility]) (test code = [facility] 1538) [id number] POCT-GLUCOSE [id number] 17:10:00 Test Item Value Reference Range Interpretation Comments POC-GLUCOSE METER 122 mg/dL 70-110 H TESTED AT [place] [address] ([facility]) (test code = [facility] 1538) [address] POCT-GLUCOSE [id number] 17:04:00 Test Item Value Reference Range Interpretation Comments POC-GLUCOSE METER 110 mg/dL 70-110 TESTED AT [place] [address] ([facility]) (test code = [facility] 1538) [id number] SPIN/CONCENTRATION [id number] 12:06:00 Test Item Value Reference Range Interpretation Comments CONCENTRATION CHARGED ([facility]) (test Done code = 2657) POCT-GLUCOSE [id number] 07:14:00 Test Item Value Reference Range Interpretation Comments POC-GLUCOSE METER 100 mg/dL 70-110 TESTED AT [facility] 6720 (BEAKER) (test code = [place] 1538) [address] COMPREHENSIVE METABOLIC [id number] 05:38:00 Test Item Value Reference Range Interpretation Comments TOTAL PROTEIN 6.0 gm/dL 6.0-8.3 (BEAKER) (test code = 770) ALBUMIN (BEAKER) 2.2 g/dL 3.5-5.0 L (test code = 1145) ALKALINE PHOSPHATASE 131 U/L 40-150 (BEAKER) (test code = 346) BILIRUBIN TOTAL 1.0 mg/dL 0.2-1.2 (BEAKER) (test code = 377) SODIUM (BEAKER) (test 132 meq/L 136-145 L code = 381) POTASSIUM (BEAKER) 3.5 meq/L 3.5-5.1 (test code = 379) CHLORIDE (BEAKER) 105 meq/L 98-107 (test code = 382) CO2 (BEAKER) (test 21 meq/L 22-29 L code = 355) BLOOD UREA NITROGEN 9 mg/dL 7-21 (BEAKER) (test code = 354) CREATININE (BEAKER) 0.99 mg/dL 0.57-1.25 (test code = 358) GLUCOSE RANDOM 98 mg/dL 70-105 (BEAKER) (test code = 652) CALCIUM (BEAKER) 7.7 mg/dL 8.4-10.2 L (test code = 697) AST (SGOT) (BEAKER) 33 U/L 5-34 (test code = 353) ALT (SGPT) (BEAKER) 12 U/L 6-55 (test code = 347) EGFR (BEAKER) (test 78 mL/min/1.73 ESTIMA KE GFR IS code = 1092) sq m NOT ACCURATE CREATININE CLEARANCE IN PREDICTING GLOMERULAR FILTRATION RATE . ESTIMATED GFR I S NOT APPLICABLE FOR DIALYSIS PATIEN TS. [id number] 05:23:00 Test Item Value Reference Range Interpretation Comments MAGNESIUM (BEAKER) (test code = 1.3 mg/dL 1.6-2.6 L 627) HEPATIC FUNCTION [id number] 05:23:00 Test Item Value Reference Range Interpretation Comments TOTAL PROTEIN (BEAKER) (test code = 6.0 gm/dL 6.0-8.3 770) ALBUMIN (BEAKER) (test code = 1145) 2.2 g/dL 3.5-5.0 L BILIRUBIN TOTAL (BEAKER) (test code 1.0 mg/dL 0.2-1.2 = 377) BILIRUBIN DIRECT (BEAKER) (test 0.8 mg/dL 0.1-0.5 H code = 706) ALKALINE PHOSPHATASE (BEAKER) (test 131 U/L 40-150 code = 346) AST (SGOT) (BEAKER) (test code = 33 U/L 5-34 353) ALT (SGPT) (BEAKER) (test code = 12 U/L 6-55 347) CBC W/PLT COUNT & AUTO [id number] 04:44:00 Test Item Value Reference Range Interpretation Comments WHITE BLOOD CELL COUNT (BEAKER) 4.8 K/ L 3.5-10.5 (test code = 775) RED BLOOD CELL COUNT (BEAKER) 3.19 M/ L 4.63-6.08 L (test code = 761) HEMOGLOBIN (BEAKER) (test code = 10.1 GM/DL 13.7-17.5 L 410) HEMATOCRIT (BEAKER) (test code = 30.8 % 40.1-51.0 L 411) MEAN CORPUSCULAR VOLUME (BEAKER) 96.6 fL 79.0-92.2 H (test code = 753) MEAN CORPUSCULAR HEMOGLOBIN 31.7 pg 25.7-32.2 (BEAKER) (test code = 751) MEAN CORPUSCULAR HEMOGLOBIN CONC 32.8 GM/DL 32.3-36.5 (BEAKER) (test code = 752) RED CELL DISTRIBUTION WIDTH 18.6 % 11.6-14.4 H (BEAKER) (test code = 412) PLATELET COUNT (BEAKER) (test 219 K/CU MM 150-450 code = 756) MEAN PLATELET VOLUME (BEAKER) 10.2 fL 9.4-12.4 (test code = 754) NUCLEATED RED BLOOD CELLS 0 /100 WBC 0-0 (BEAKER) (test code = 413) NEUTROPHILS RELATIVE PERCENT 66 % (BEAKER) (test code = 429) LYMPHOCYTES RELATIVE PERCENT 17 % (BEAKER) (test code = 430) MONOCYTES RELATIVE PERCENT 14 % (BEAKER) (test code = 431) EOSINOPHILS RELATIVE PERCENT 2 % (BEAKER) (test code = 432) BASOPHILS RELATIVE PERCENT 0 % (BEAKER) (test code = 437) NEUTROPHILS ABSOLUTE COUNT 3.18 K/ L 1.78-5.38 (BEAKER) (test code = 670) LYMPHOCYTES ABSOLUTE COUNT 0.81 K/ L 1.32-3.57 L (BEAKER) (test code = 414) MONOCYTES ABSOLUTE COUNT (BEAKER) 0.68 K/ L 0.30-0.82 (test code = 415) EOSINOPHILS ABSOLUTE COUNT 0.11 K/ L 0.04-0.54 (BEAKER) (test code = 416) BASOPHILS ABSOLUTE COUNT (BEAKER) 0.01 K/ L 0.01-0.08 (test code = 417) IMMATURE GRANULOCYTES-RELATIVE 1 % 0-1 PERCENT (BEAKER) (test code = 2801) POCT-GLUCOSE [id number] 22:29:00 Test Item Value Reference Range Interpretation Comments POC-GLUCOSE METER 129 mg/dL 70-110 H TESTED AT [facility] 6720 (BEAKER) (test code = JOHANA Gan [facility] 1538) [id number] U/S, [id number] 20:56:00Reason for exam:->large volume ascites FINAL REPORT PROCEDURE: Ultrasound-guided paracentesis. INDICATION: Ascites. DESCRIPTION: After obtaining informed written consent, ultrasound scan of the abdomen identified complex ascites in the right upper quadrant. The overlying skin was prepped and draped in the usual, sterile fashion and local 1% lidocaine anesthesia was administered. A 5 Egyptian catheter was advanced intothe peritoneal cavity and 310 mL of serosanguinous fluid was removed. The catheter was removed without immediate complication. Samples were sent for analysis. IMPRESSION: Uncomplicated ultrasound-guided paracentesis with 310 mL fluid removed. Signed: Nyasia Angela MDReport Verified Date/Time: 08/19/201820:56:53 Reading Location: [address] Ultrasound Reading Room BODY FLUID CELL COUNT WITH [id number] 20:45:00 Test Item Value Reference Range Interpretation Comments APPEARANCE FLUID (BEAKER) (test Cloudy Clear A code = 510) COLOR FLUID (BEAKER) (test code [place] Colorless, Straw A = 511) RBC FLUID (BEAKER) (test code = 53267 /cu mm <=1 H 513) ADJUSTED WBC FLUID (BEAKER) 675 /cu mm <=5 H (test code = 1691) LINING CELLS (BEAKER) (test 0 /cu mm <=1 code = 1590) NEUTROPHILS FLUID (BEAKER) 85 % (test code = 1656) LYMPHS FLUID (BEAKER) (test 6 % code = 488) MONO/MACROPHAGE FLUID (BEAKER) 8 % (test code = 489) EOSINOPHILS FLUID (BEAKER) 1 % (test code = 491) BASO FLUID (BEAKER) (test code 0 % = 492) CONTAINER BODY FLUID (BEAKER) EDTA Tube (test code = 2873) POCT-GLUCOSE [id number] 12:51:00 Test Item Value Reference Range Interpretation Comments POC-GLUCOSE METER 115 mg/dL 70-110 H TESTED AT [facility] 67 (BEAKER) (test code = JOHANA Gan [facility] 1538) [address] POCT-GLUCOSE [id number] 08:54:00 Test Item Value Reference Range Interpretation Comments POC-GLUCOSE METER 137 mg/dL 70-110 H TESTED AT [facility] 6720 (BEAKER) (test code = [facility] Elvia [facility] 1538) [id number] 05:17:00 Test Item Value Reference Range Interpretation Comments MAGNESIUM (BEAKER) (test code = 1.5 mg/dL 1.6-2.6 L 627) HEPATIC FUNCTION [id number] 05:17:00 Test Item Value Reference Range Interpretation Comments TOTAL PROTEIN (BEAKER) (test code = 6.3 gm/dL 6.0-8.3 770) ALBUMIN (BEAKER) (test code = 1145) 2.5 g/dL 3.5-5.0 L BILIRUBIN TOTAL (BEAKER) (test code 0.9 mg/dL 0.2-1.2 = 377) BILIRUBIN DIRECT (BEAKER) (test 0.7 mg/dL 0.1-0.5 H code = 706) ALKALINE PHOSPHATASE (BEAKER) (test 132 U/L 40-150 code = 346) AST (SGOT) (BEAKER) (test code = 36 U/L 5-34 H 353) ALT (SGPT) (BEAKER) (test code = 14 U/L 6-55 347) COMPREHENSIVE METABOLIC [id number] 05:17:00 Test Item Value Reference Range Interpretation Comments TOTAL PROTEIN 6.3 gm/dL 6.0-8.3 (BEAKER) (test code = 770) ALBUMIN (BEAKER) 2.5 g/dL 3.5-5.0 L (test code = 1145) ALKALINE PHOSPHATASE 132 U/L 40-150 (BEAKER) (test code = 346) BILIRUBIN TOTAL 0.9 mg/dL 0.2-1.2 (BEAKER) (test code = 377) SODIUM (BEAKER) (test 136 meq/L 136-145 code = 381) POTASSIUM (BEAKER) 4.1 meq/L 3.5-5.1 (test code = 379) CHLORIDE (BEAKER) 109 meq/L 98-107 H (test code = 382) CO2 (BEAKER) (test 19 meq/L 22-29 L code = 355) BLOOD UREA NITROGEN 11 mg/dL 7-21 (BEAKER) (test code = 354) CREATININE (BEAKER) 1.16 mg/dL 0.57-1.25 (test code = 358) GLUCOSE RANDOM 107 mg/dL 70-105 H (BEAKER) (test code = 652) CALCIUM (BEAKER) 7.9 mg/dL 8.4-10.2 L (test code = 697) AST (SGOT) (BEAKER) 36 U/L 5-34 H (test code = 353) ALT (SGPT) (BEAKER) 14 U/L 6-55 (test code = 347) EGFR (BEAKER) (test 65 mL/min/1.73 ESTIMA KE GFR IS code = 1092) sq m NOT ACCURATE CREATININE CLEARANCE IN PREDICTING GLOMERULAR FILTRATION RATE . ESTIMATED GFR I S NOT APPLICABLE FOR DIALYSIS PATIEN TS. [id number] 04:57:00 Test Item Value Reference Range Interpretation Comments PROTIME (BEAKER) (test code = 16.9 seconds 11.7-14.7 H 759) INR (BEAKER) (test code = 370) 1.4 <=5.9 PARTIAL THROMBOPLASTIN TIME 41.3 seconds 22.5-36.0 H (BEAKER) (test code = 760) RECOMMENDED COUMADIN/WARFARIN INR THERAPY RANGESSTANDARD DOSE: 2.0 - 3.0 Includes: PROPHYLAXIS forvenous thrombosis, systemic embolization; TREATMENT for venous thrombosis and/or pulmonary embolus.HIGH RISK: Target INR is 2.5-3.5 for patients with mechanical heart valves.PROTHROMBIN [id number] 04:56:00 Test Item Value Reference Range Interpretation Comments PROTIME (BEAKER) (test code = 16.9 seconds 11.7-14.7 H 759) INR (BEAKER) (test code = 370) 1.4 <=5.9 RECOMMENDED COUMADIN/WARFARIN INR THERAPY RANGESSTANDARD DOSE: 2.0 - 3.0 Includes: PROPHYLAXIS forvenous thrombosis, systemic embolization; TREATMENT for venous thrombosis and/or pulmonary embolus.HIGH RISK: Target INR is 2.5-3.5 for patients with mechanical heart valves.CBC W/PLT COUNT & AUTO DIFFERENTIAL 2018-08-19 04:51:00 Test Item Value Reference Range Interpretation Comments WHITE BLOOD CELL COUNT (BEAKER) 5.4 K/ L 3.5-10.5 (test code = 775) RED BLOOD CELL COUNT (BEAKER) 3.30 M/ L 4.63-6.08 L (test code = 761) HEMOGLOBIN (BEAKER) (test code = 10.6 GM/DL 13.7-17.5 L 410) HEMATOCRIT (BEAKER) (test code = 32.5 % 40.1-51.0 L 411) MEAN CORPUSCULAR VOLUME (BEAKER) 98.5 fL 79.0-92.2 H (test code = 753) MEAN CORPUSCULAR HEMOGLOBIN 32.1 pg 25.7-32.2 (BEAKER) (test code = 751) MEAN CORPUSCULAR HEMOGLOBIN CONC 32.6 GM/DL 32.3-36.5 (BEAKER) (test code = 752) RED CELL DISTRIBUTION WIDTH 18.9 % 11.6-14.4 H (BEAKER) (test code = 412) PLATELET COUNT (BEAKER) (test 210 K/CU MM 150-450 code = 756) MEAN PLATELET VOLUME (BEAKER) 10.6 fL 9.4-12.4 (test code = 754) NUCLEATED RED BLOOD CELLS 0 /100 WBC 0-0 (BEAKER) (test code = 413) NEUTROPHILS RELATIVE PERCENT 67 % (BEAKER) (test code = 429) LYMPHOCYTES RELATIVE PERCENT 14 % (BEAKER) (test code = 430) MONOCYTES RELATIVE PERCENT 15 % (BEAKER) (test code = 431) EOSINOPHILS RELATIVE PERCENT 3 % (BEAKER) (test code = 432) BASOPHILS RELATIVE PERCENT 0 % (BEAKER) (test code = 437) NEUTROPHILS ABSOLUTE COUNT 3.66 K/ L 1.78-5.38 (BEAKER) (test code = 670) LYMPHOCYTES ABSOLUTE COUNT 0.75 K/ L 1.32-3.57 L (BEAKER) (test code = 414) MONOCYTES ABSOLUTE COUNT (BEAKER) 0.82 K/ L 0.30-0.82 (test code = 415) EOSINOPHILS ABSOLUTE COUNT 0.15 K/ L 0.04-0.54 (BEAKER) (test code = 416) BASOPHILS ABSOLUTE COUNT (BEAKER) 0.02 K/ L 0.01-0.08 (test code = 417) IMMATURE GRANULOCYTES-RELATIVE 1 % 0-1 PERCENT (BEAKER) (test code = 2801) POCT-GLUCOSE [id number] 22:22:00 Test Item Value Reference Range Interpretation Comments POC-GLUCOSE METER 109 mg/dL 70-110 TESTED AT [place] [address] ([facility]) (test code = [facility] 1538) [id number] POCT-GLUCOSE [id number] 15:46:00 Test Item Value Reference Range Interpretation Comments POC-GLUCOSE METER 136 mg/dL 70-110 H TESTED AT [place] [address] ([facility]) (test code = [facility] 1538) [id number] POCT-GLUCOSE [id number] 12:24:00 Test Item Value Reference Range Interpretation Comments POC-GLUCOSE METER 122 mg/dL 70-110 H TESTED AT [place] [address] ([facility]) (test code = [facility] 1538) [address] COMPREHENSIVE METABOLIC [id number] 08:46:00 Test Item Value Reference Range Interpretation Comments TOTAL PROTEIN 5.7 gm/dL 6.0-8.3 L (BEAKER) (test code = 770) ALBUMIN (BEAKER) 2.1 g/dL 3.5-5.0 L (test code = 1145) ALKALINE PHOSPHATASE 120 U/L 40-150 (BEAKER) (test code = 346) BILIRUBIN TOTAL 1.0 mg/dL 0.2-1.2 (BEAKER) (test code = 377) SODIUM (BEAKER) (test 133 meq/L 136-145 L code = 381) POTASSIUM (BEAKER) 4.1 meq/L 3.5-5.1 (test code = 379) CHLORIDE (BEAKER) 108 meq/L 98-107 H (test code = 382) CO2 (BEAKER) (test 20 meq/L 22-29 L code = 355) BLOOD UREA NITROGEN 13 mg/dL 7-21 (BEAKER) (test code = 354) CREATININE (BEAKER) 1.16 mg/dL 0.57-1.25 (test code = 358) GLUCOSE RANDOM 120 mg/dL 70-105 H (BEAKER) (test code = 652) CALCIUM (BEAKER) 7.6 mg/dL 8.4-10.2 L (test code = 697) AST (SGOT) (BEAKER) 37 U/L 5-34 H (test code = 353) ALT (SGPT) (BEAKER) 15 U/L 6-55 (test code = 347) EGFR (BEAKER) (test 65 mL/min/1.73 ESTIMA KE GFR IS code = 1092) sq m NOT ACCURATE CREATININE CLEARANCE IN PREDICTING GLOMERULAR FILTRATION RATE . ESTIMATED GFR I S NOT APPLICABLE FOR DIALYSIS PATIEN TS. POCT-GLUCOSE [id number] 08:36:00 Test Item Value Reference Range Interpretation Comments POC-GLUCOSE METER 150 mg/dL 70-110 H TESTED AT [facility] 6720 (BEAKER) (test code = JOHANA [place]UP[place] 1538) [address] [id number] 08:33:00 Test Item Value Reference Range Interpretation Comments MAGNESIUM (BEAKER) (test code = 1.6 mg/dL 1.6-2.6 627) HEPATIC FUNCTION [id number] 08:33:00 Test Item Value Reference Range Interpretation Comments TOTAL PROTEIN (BEAKER) (test code = 5.7 gm/dL 6.0-8.3 L 770) ALBUMIN (BEAKER) (test code = 1145) 2.1 g/dL 3.5-5.0 L BILIRUBIN TOTAL (BEAKER) (test code 1.0 mg/dL 0.2-1.2 = 377) BILIRUBIN DIRECT (BEAKER) (test 0.8 mg/dL 0.1-0.5 H code = 706) ALKALINE PHOSPHATASE (BEAKER) (test 120 U/L 40-150 code = 346) AST (SGOT) (BEAKER) (test code = 37 U/L 5-34 H 353) ALT (SGPT) (BEAKER) (test code = 15 U/L 6-55 347) [id number] 05:56:00 Test Item Value Reference Range Interpretation Comments PROTIME (BEAKER) (test code = 16.4 seconds 11.7-14.7 H 759) INR (BEAKER) (test code = 370) 1.3 <=5.9 PARTIAL THROMBOPLASTIN TIME 40.3 seconds 22.5-36.0 H (BEAKER) (test code = 760) RECOMMENDED COUMADIN/WARFARIN INR THERAPY RANGESSTANDARD DOSE: 2.0 - 3.0 Includes: PROPHYLAXIS forvenous thrombosis, systemic embolization; TREATMENT for venous thrombosis and/or pulmonary embolus.HIGH RISK: Target INR is 2.5-3.5 for patients with mechanical heart valves.CBC W/PLT COUNT & AUTO DIFFERENTIAL 2018-08-18 05:30:00 Test Item Value Reference Range Interpretation Comments WHITE BLOOD CELL COUNT (BEAKER) 4.9 K/ L 3.5-10.5 (test code = 775) RED BLOOD CELL COUNT (BEAKER) 2.98 M/ L 4.63-6.08 L (test code = 761) HEMOGLOBIN (BEAKER) (test code = 9.6 GM/DL 13.7-17.5 L 410) HEMATOCRIT (BEAKER) (test code = 29.7 % 40.1-51.0 L 411) MEAN CORPUSCULAR VOLUME (BEAKER) 99.7 fL 79.0-92.2 H (test code = 753) MEAN CORPUSCULAR HEMOGLOBIN 32.2 pg 25.7-32.2 (BEAKER) (test code = 751) MEAN CORPUSCULAR HEMOGLOBIN CONC 32.3 GM/DL 32.3-36.5 (BEAKER) (test code = 752) RED CELL DISTRIBUTION WIDTH 19.1 % 11.6-14.4 H (BEAKER) (test code = 412) PLATELET COUNT (BEAKER) (test 178 K/CU MM 150-450 code = 756) MEAN PLATELET VOLUME (BEAKER) 10.6 fL 9.4-12.4 (test code = 754) NUCLEATED RED BLOOD CELLS 0 /100 WBC 0-0 (BEAKER) (test code = 413) NEUTROPHILS RELATIVE PERCENT 71 % (BEAKER) (test code = 429) LYMPHOCYTES RELATIVE PERCENT 12 % (BEAKER) (test code = 430) MONOCYTES RELATIVE PERCENT 15 % (BEAKER) (test code = 431) EOSINOPHILS RELATIVE PERCENT 2 % (BEAKER) (test code = 432) BASOPHILS RELATIVE PERCENT 0 % (BEAKER) (test code = 437) NEUTROPHILS ABSOLUTE COUNT 3.50 K/ L 1.78-5.38 (BEAKER) (test code = 670) LYMPHOCYTES ABSOLUTE COUNT 0.57 K/ L 1.32-3.57 L (BEAKER) (test code = 414) MONOCYTES ABSOLUTE COUNT (BEAKER) 0.74 K/ L 0.30-0.82 (test code = 415) EOSINOPHILS ABSOLUTE COUNT 0.09 K/ L 0.04-0.54 (BEAKER) (test code = 416) BASOPHILS ABSOLUTE COUNT (BEAKER) 0.01 K/ L 0.01-0.08 (test code = 417) IMMATURE GRANULOCYTES-RELATIVE 0 % 0-1 PERCENT (BEAKER) (test code = 2801) POCT-GLUCOSE [id number] 21:50:00 Test Item Value Reference Range Interpretation Comments POC-GLUCOSE METER 173 mg/dL 70-110 H TESTED AT [place] [address] ([facility]) (test code = [facility] 1538) [address] POCT-GLUCOSE [id number] 16:50:00 Test Item Value Reference Range Interpretation Comments POC-GLUCOSE METER 156 mg/dL 70-110 H TESTED AT [place] [address] ([facility]) (test code = [facility] 1538) [address] POCT-GLUCOSE [id number] 12:54:00 Test Item Value Reference Range Interpretation Comments POC-GLUCOSE METER 85 mg/dL 70-110 TESTED AT [place] [address] ([facility]) (test code = [facility] [id number] 1538) POCT-GLUCOSE [id number] 06:23:00 Test Item Value Reference Range Interpretation Comments POC-GLUCOSE METER 75 mg/dL 70-110 TESTED AT [place] [address] ([facility]) (test code = [facility] [id number] 1538) CBC W/PLT COUNT & AUTO [id number] 05:55:00 Test Item Value Reference Range Interpretation Comments WHITE BLOOD CELL COUNT (BEAKER) 3.7 K/ L 3.5-10.5 (test code = 775) RED BLOOD CELL COUNT (BEAKER) 3.08 M/ L 4.63-6.08 L (test code = 761) HEMOGLOBIN (BEAKER) (test code = 9.9 GM/DL 13.7-17.5 L 410) HEMATOCRIT (BEAKER) (test code = 30.8 % 40.1-51.0 L 411) MEAN CORPUSCULAR VOLUME (BEAKER) 100.0 fL 79.0-92.2 H (test code = 753) MEAN CORPUSCULAR HEMOGLOBIN 32.1 pg 25.7-32.2 (BEAKER) (test code = 751) MEAN CORPUSCULAR HEMOGLOBIN CONC 32.1 GM/DL 32.3-36.5 L (BEAKER) (test code = 752) RED CELL DISTRIBUTION WIDTH 19.7 % 11.6-14.4 H (BEAKER) (test code = 412) PLATELET COUNT (BEAKER) (test 174 K/CU MM 150-450 code = 756) MEAN PLATELET VOLUME (BEAKER) 10.2 fL 9.4-12.4 (test code = 754) NUCLEATED RED BLOOD CELLS 0 /100 WBC 0-0 (BEAKER) (test code = 413) NEUTROPHILS RELATIVE PERCENT 56 % (BEAKER) (test code = 429) LYMPHOCYTES RELATIVE PERCENT 23 % (BEAKER) (test code = 430) MONOCYTES RELATIVE PERCENT 16 % (BEAKER) (test code = 431) EOSINOPHILS RELATIVE PERCENT 4 % (BEAKER) (test code = 432) BASOPHILS RELATIVE PERCENT 1 % (BEAKER) (test code = 437) NEUTROPHILS ABSOLUTE COUNT 2.04 K/ L 1.78-5.38 (BEAKER) (test code = 670) LYMPHOCYTES ABSOLUTE COUNT 0.82 K/ L 1.32-3.57 L (BEAKER) (test code = 414) MONOCYTES ABSOLUTE COUNT (BEAKER) 0.59 K/ L 0.30-0.82 (test code = 415) EOSINOPHILS ABSOLUTE COUNT 0.16 K/ L 0.04-0.54 (BEAKER) (test code = 416) BASOPHILS ABSOLUTE COUNT (BEAKER) 0.02 K/ L 0.01-0.08 (test code = 417) IMMATURE GRANULOCYTES-RELATIVE 1 % 0-1 PERCENT (BEAKER) (test code = 2801) COMPREHENSIVE METABOLIC [id number] 05:36:00 Test Item Value Reference Range Interpretation Comments TOTAL PROTEIN 6.0 gm/dL 6.0-8.3 (BEAKER) (test code = 770) ALBUMIN (BEAKER) 1.8 g/dL 3.5-5.0 L (test code = 1145) ALKALINE PHOSPHATASE 158 U/L 40-150 H (BEAKER) (test code = 346) BILIRUBIN TOTAL 1.5 mg/dL 0.2-1.2 H (BEAKER) (test code = 377) SODIUM (BEAKER) (test 134 meq/L 136-145 L code = 381) POTASSIUM (BEAKER) 4.1 meq/L 3.5-5.1 (test code = 379) CHLORIDE (BEAKER) 110 meq/L 98-107 H (test code = 382) CO2 (BEAKER) (test 21 meq/L 22-29 L code = 355) BLOOD UREA NITROGEN 16 mg/dL 7-21 (BEAKER) (test code = 354) CREATININE (BEAKER) 1.23 mg/dL 0.57-1.25 (test code = 358) GLUCOSE RANDOM 83 mg/dL 70-105 (BEAKER) (test code = 652) CALCIUM (BEAKER) 7.7 mg/dL 8.4-10.2 L (test code = 697) AST (SGOT) (BEAKER) 45 U/L 5-34 H (test code = 353) ALT (SGPT) (BEAKER) 20 U/L 6-55 (test code = 347) EGFR (BEAKER) (test 61 mL/min/1.73 ESTIMA KE GFR IS code = 1092) sq m NOT ACCURATE CREATININE CLEARANCE IN PREDICTING GLOMERULAR FILTRATION RATE . ESTIMATED GFR I S NOT APPLICABLE FOR DIALYSIS PATIEN TS. [id number] 05:33:00 Test Item Value Reference Range Interpretation Comments MAGNESIUM (BEAKER) (test code = 1.3 mg/dL 1.6-2.6 L 627) POCT-GLUCOSE [id number] 22:54:00 Test Item Value Reference Range Interpretation Comments POC-GLUCOSE METER 92 mg/dL 70-110 TESTED AT [place] [address] ([facility]) ([facility] [id number] 1538) POCT-GLUCOSE [id number] 17:57:00 Test Item Value Reference Range Interpretation Comments POC-GLUCOSE METER 88 mg/dL 70-110 TESTED AT [place] [address] ([facility]) (test code = [facility] Elvia [facility] [id number] 1538) ANTI-MITOCHONDRIAL AB, REFLEX TO [id number] 08:52:00 Test Item Value Reference Range Interpretation Comments SCAN RESULT (test code = 8043397) BODY FLUID CULTURE + GRAM [id number] 09:23:00 Test Item Value Reference Range Interpretation Comments CULTURE ([facility]) (test code No growth = 1095) GRAM STAIN RESULT ([facility]) <1+ WBCs (test code = 1123) GRAM STAIN RESULT ([facility]) No organisms seen (test code = 52367) POCT-GLUCOSE [id number] 17:45:00 Test Item Value Reference Range Interpretation Comments POC-GLUCOSE METER 163 mg/dL 70-110 H TESTED AT [place] [address] ([facility]) (test code = [facility] 1538) [address] POCT-GLUCOSE [id number] 09:37:00 Test Item Value Reference Range Interpretation Comments POC-GLUCOSE METER 171 mg/dL 70-110 H TESTED AT [place] [address] ([facility]) (test code = [facility] Elvia [facility] 1538) [address] CALCIUM, [id number] 06:36:00 Test Item Value Reference Range Interpretation Comments CALCIUM IONIZED ([facility]) (test 0.97 mmol/L 1.12-1.27 L code = 698) PH, BLOOD ([facility]) (test code = 7.40 1810) COMPREHENSIVE METABOLIC [id number] 05:58:00 Test Item Value Reference Range Interpretation Comments TOTAL PROTEIN 5.9 gm/dL 6.0-8.3 L ([facility]) (test code = 770) ALBUMIN (AKER) 2.0 g/dL 3.5-5.0 L (test code = 1145) ALKALINE PHOSPHATASE 153 U/L 40-150 H ([facility]) (test code = 346) BILIRUBIN TOTAL 1.4 mg/dL 0.2-1.2 H (BEAKER) (test code = 377) SODIUM (BEAKER) (test 135 meq/L 136-145 L code = 381) POTASSIUM (BEAKER) 3.8 meq/L 3.5-5.1 (test code = 379) CHLORIDE (BEAKER) 107 meq/L 98-107 (test code = 382) CO2 (BEAKER) (test 24 meq/L 22-29 code = 355) BLOOD UREA NITROGEN 27 mg/dL 7-21 H (BEAKER) (test code = 354) CREATININE (BEAKER) 1.15 mg/dL 0.57-1.25 (test code = 358) GLUCOSE RANDOM 107 mg/dL 70-105 H (BEAKER) (test code = 652) CALCIUM (BEAKER) 7.8 mg/dL 8.4-10.2 L (test code = 697) AST (SGOT) (BEAKER) 66 U/L 5-34 H (test code = 353) ALT (SGPT) (BEAKER) 29 U/L 6-55 (test code = 347) EGFR (BEAKER) (test 66 mL/min/1.73 ESTIMA KE GFR IS code = 1092) sq m NOT ACCURATE CREATININE CLEARANCE IN PREDICTING GLOMERULAR FILTRATION RATE . ESTIMATED GFR I S NOT APPLICABLE FOR DIALYSIS PATIEN TS. [id number] 05:57:00 Test Item Value Reference Range Interpretation Comments PHOSPHORUS (BEAKER) (test code = 3.1 mg/dL 2.3-4.7 604) [id number] 05:57:00 Test Item Value Reference Range Interpretation Comments MAGNESIUM (BEAKER) (test code = 1.7 mg/dL 1.6-2.6 627) BILIRUBIN, [id number] 05:57:00 Test Item Value Reference Range Interpretation Comments BILIRUBIN DIRECT (BEAKER) (test 1.1 mg/dL 0.1-0.5 H code = 706) [id number] 05:43:00 Test Item Value Reference Range Interpretation Comments PROTIME (BEAKER) (test code = 16.4 seconds 11.7-14.7 H 759) INR (BEAKER) (test code = 370) 1.3 <=5.9 PARTIAL THROMBOPLASTIN TIME 37.4 seconds 22.5-36.0 H (BEAKER) (test code = 760) RECOMMENDED COUMADIN/WARFARIN INR THERAPY RANGESSTANDARD DOSE: 2.0 - 3.0 Includes: PROPHYLAXIS forvenous thrombosis, systemic embolization; TREATMENT for venous thrombosis and/or pulmonary embolus.HIGH RISK: Target INR is 2.5-3.5 for patients with mechanical heart valves.CBC W/PLT COUNT & AUTO DIFFERENTIAL 2018-08-11 05:27:00 Test Item Value Reference Range Interpretation Comments WHITE BLOOD CELL COUNT (BEAKER) 6.4 K/ L 3.5-10.5 (test code = 775) RED BLOOD CELL COUNT (BEAKER) 3.34 M/ L 4.63-6.08 L (test code = 761) HEMOGLOBIN (BEAKER) (test code = 10.6 GM/DL 13.7-17.5 L 410) HEMATOCRIT (BEAKER) (test code = 31.9 % 40.1-51.0 L 411) MEAN CORPUSCULAR VOLUME (BEAKER) 95.5 fL 79.0-92.2 H (test code = 753) MEAN CORPUSCULAR HEMOGLOBIN 31.7 pg 25.7-32.2 (BEAKER) (test code = 751) MEAN CORPUSCULAR HEMOGLOBIN CONC 33.2 GM/DL 32.3-36.5 (BEAKER) (test code = 752) RED CELL DISTRIBUTION WIDTH 18.6 % 11.6-14.4 H (BEAKER) (test code = 412) PLATELET COUNT (BEAKER) (test 104 K/CU MM 150-450 L code = 756) MEAN PLATELET VOLUME (BEAKER) 11.6 fL 9.4-12.4 (test code = 754) NUCLEATED RED BLOOD CELLS 0 /100 WBC 0-0 (BEAKER) (test code = 413) NEUTROPHILS RELATIVE PERCENT 78 % (BEAKER) (test code = 429) LYMPHOCYTES RELATIVE PERCENT 10 % (BEAKER) (test code = 430) MONOCYTES RELATIVE PERCENT 10 % (BEAKER) (test code = 431) EOSINOPHILS RELATIVE PERCENT 1 % (BEAKER) (test code = 432) BASOPHILS RELATIVE PERCENT 0 % (BEAKER) (test code = 437) NEUTROPHILS ABSOLUTE COUNT 5.01 K/ L 1.78-5.38 (BEAKER) (test code = 670) LYMPHOCYTES ABSOLUTE COUNT 0.64 K/ L 1.32-3.57 L (BEAKER) (test code = 414) MONOCYTES ABSOLUTE COUNT (BEAKER) 0.61 K/ L 0.30-0.82 (test code = 415) EOSINOPHILS ABSOLUTE COUNT 0.08 K/ L 0.04-0.54 (BEAKER) (test code = 416) BASOPHILS ABSOLUTE COUNT (BEAKER) 0.02 K/ L 0.01-0.08 (test code = 417) IMMATURE GRANULOCYTES-RELATIVE 1 % 0-1 PERCENT (BEAKER) (test code = 2801) POCT-GLUCOSE [id number] 22:04:00 Test Item Value Reference Range Interpretation Comments POC-GLUCOSE METER 161 mg/dL 70-110 H TESTED AT [facility] 6720 (BEAKER) (test code = [place] [place] 1538) [address] BODY FLUID CELL COUNT WITH [id number] 19:27:00 Test Item Value Reference Range Interpretation Comments APPEARANCE FLUID (BEAKER) (test Cloudy Clear A code = 510) COLOR FLUID (BEAKER) (test code [place] Colorless, Straw A = 511) RBC FLUID (BEAKER) (test code = 72640 /cu mm <=1 H 513) ADJUSTED WBC FLUID (BEAKER) 240 /cu mm <=5 H (test code = 1691) LINING CELLS (BEAKER) (test 0 /cu mm <=1 code = 1590) NEUTROPHILS FLUID (BEAKER) 22 % (test code = 1656) LYMPHS FLUID (BEAKER) (test 43 % code = 488) MONO/MACROPHAGE FLUID (BEAKER) 35 % (test code = 489) EOSINOPHILS FLUID (BEAKER) 0 % (test code = 491) BASO FLUID (BEAKER) (test code 0 % = 492) CONTAINER BODY FLUID (BEAKER) EDTA Tube (test code = 2873) POCT-GLUCOSE [id number] 17:03:00 Test Item Value Reference Range Interpretation Comments POC-GLUCOSE METER 113 mg/dL 70-110 H TESTED AT [facility] 6720 (BEAKER) (test code = JOHANA Gan [facility] 1538) [address] U/S, [id number] 16:04:00Reason for exam:->ascitesFINAL REPORT PROCEDURE: Ultrasound-guided paracentesis. INDICATION: 58-year-old man with ascites. DESCRIPTION: After obtaining informed written consent, ultrasound scan of the abdomen identified ascites in the right lower quadrant. The overlying skin was prepped and draped in the usual, sterile fashion and local 1% lidocaine anesthesia was administered. A 5 Egyptian catheter was advanced into the peritoneal cavity and 1200 cc of serosanguineous fluid was removed. The catheter was removed without immediate complication. Samples were sent for analysis. IMPRESSION:Uncomplicated ultrasound-guided paracentesis with 1200 cc fluid removed. Signed: Efren Rosas MDReport Verified Date/Time: 08/10/2018 16:04:03 Reading Location: [facility] P006J Ultrasound Reading Room POCT- GLUCOSE [id number] 09:25:00 Test Item Value Reference Range Interpretation Comments POC-GLUCOSE METER 168 mg/dL 70-110 H TESTED AT [facility] 6720 (BEAKER) (test code = JOHANA Gan [facility] 1538) [address] COMPREHENSIVE METABOLIC [id number] 06:37:00 Test Item Value Reference Range Interpretation Comments TOTAL PROTEIN 6.2 gm/dL 6.0-8.3 (BEAKER) (test code = 770) ALBUMIN (BEAKER) 2.1 g/dL 3.5-5.0 L (test code = 1145) ALKALINE PHOSPHATASE 134 U/L 40-150 (BEAKER) (test code = 346) BILIRUBIN TOTAL 2.1 mg/dL 0.2-1.2 H (BEAKER) (test code = 377) SODIUM (BEAKER) (test 134 meq/L 136-145 L code = 381) POTASSIUM (BEAKER) 4.1 meq/L 3.5-5.1 (test code = 379) CHLORIDE (BEAKER) 106 meq/L 98-107 (test code = 382) CO2 (BEAKER) (test 23 meq/L 22-29 code = 355) BLOOD UREA NITROGEN 28 mg/dL 7-21 H (BEAKER) (test code = 354) CREATININE (BEAKER) 1.10 mg/dL 0.57-1.25 (test code = 358) GLUCOSE RANDOM 92 mg/dL 70-105 (BEAKER) (test code = 652) CALCIUM (BEAKER) 7.8 mg/dL 8.4-10.2 L (test code = 697) AST (SGOT) (BEAKER) 70 U/L 5-34 H (test code = 353) ALT (SGPT) (BEAKER) 31 U/L 6-55 (test code = 347) EGFR (BEAKER) (test 69 mL/min/1.73 ESTIMA KE GFR IS code = 1092) sq m NOT ACCURATE CREATININE CLEARANCE IN PREDICTING GLOMERULAR FILTRATION RATE . ESTIMATED GFR I S NOT APPLICABLE FOR DIALYSIS PATIEN TS. [id number] 06:33:00 Test Item Value Reference Range Interpretation Comments PHOSPHORUS (BEAKER) (test code = 3.4 mg/dL 2.3-4.7 604) [id number] 06:33:00 Test Item Value Reference Range Interpretation Comments MAGNESIUM (BEAKER) (test code = 1.7 mg/dL 1.6-2.6 627) BILIRUBIN, [id number] 06:33:00 Test Item Value Reference Range Interpretation Comments BILIRUBIN DIRECT (BEAKER) (test 1.4 mg/dL 0.1-0.5 H code = 706) [id number] 06:19:00 Test Item Value Reference Range Interpretation Comments PROTIME (BEAKER) (test code = 16.5 seconds 11.7-14.7 H 759) INR (BEAKER) (test code = 370) 1.3 <=5.9 PARTIAL THROMBOPLASTIN TIME 36.9 seconds 22.5-36.0 H (BEAKER) (test code = 760) RECOMMENDED COUMADIN/WARFARIN INR THERAPY RANGESSTANDARD DOSE: 2.0 - 3.0 Includes: PROPHYLAXIS forvenous thrombosis, systemic embolization; TREATMENT for venous thrombosis and/or pulmonary embolus.HIGH RISK: Target INR is 2.5-3.5 for patients with mechanical heart valves.CBC W/PLT COUNT & AUTO DIFFERENTIAL 2018-08-10 06:10:00 Test Item Value Reference Range Interpretation Comments WHITE BLOOD CELL COUNT (BEAKER) 8.1 K/ L 3.5-10.5 (test code = 775) RED BLOOD CELL COUNT (BEAKER) 3.70 M/ L 4.63-6.08 L (test code = 761) HEMOGLOBIN (BEAKER) (test code = 11.7 GM/DL 13.7-17.5 L 410) HEMATOCRIT (BEAKER) (test code = 34.9 % 40.1-51.0 L 411) MEAN CORPUSCULAR VOLUME (BEAKER) 94.3 fL 79.0-92.2 H (test code = 753) MEAN CORPUSCULAR HEMOGLOBIN 31.6 pg 25.7-32.2 (BEAKER) (test code = 751) MEAN CORPUSCULAR HEMOGLOBIN CONC 33.5 GM/DL 32.3-36.5 (BEAKER) (test code = 752) RED CELL DISTRIBUTION WIDTH 18.3 % 11.6-14.4 H (BEAKER) (test code = 412) PLATELET COUNT (BEAKER) (test code 99 K/CU MM 150-450 L = 756) MEAN PLATELET VOLUME (BEAKER) 11.4 fL 9.4-12.4 (test code = 754) NUCLEATED RED BLOOD CELLS (BEAKER) 0 /100 WBC 0-0 (test code = 413) NEUTROPHILS RELATIVE PERCENT 81 % (BEAKER) (test code = 429) LYMPHOCYTES RELATIVE PERCENT 10 % (BEAKER) (test code = 430) MONOCYTES RELATIVE PERCENT 7 % (BEAKER) (test code = 431) EOSINOPHILS RELATIVE PERCENT 1 % (BEAKER) (test code = 432) BASOPHILS RELATIVE PERCENT 0 % (BEAKER) (test code = 437) NEUTROPHILS ABSOLUTE COUNT 6.55 K/ L 1.78-5.38 H (BEAKER) (test code = 670) LYMPHOCYTES ABSOLUTE COUNT 0.81 K/ L 1.32-3.57 L (BEAKER) (test code = 414) MONOCYTES ABSOLUTE COUNT (BEAKER) 0.60 K/ L 0.30-0.82 (test code = 415) EOSINOPHILS ABSOLUTE COUNT 0.05 K/ L 0.04-0.54 (BEAKER) (test code = 416) BASOPHILS ABSOLUTE COUNT (BEAKER) 0.02 K/ L 0.01-0.08 (test code = 417) IMMATURE GRANULOCYTES-RELATIVE 1 % 0-1 PERCENT (BEAKER) (test code = 2801) CALCIUM, [id number] 05:47:00 Test Item Value Reference Range Interpretation Comments CALCIUM IONIZED (BEAKER) (test 1.04 mmol/L 1.12-1.27 L code = 698) PH, BLOOD (BEAKER) (test code = 7.37 1810) POCT-GLUCOSE [id number] 22:28:00 Test Item Value Reference Range Interpretation Comments POC-GLUCOSE METER 143 mg/dL 70-110 H TESTED AT [facility] 67 ([facility]) (test code = JOHANA Gan [facility] 1538) [address] POCT-GLUCOSE [id number] 18:35:00 Test Item Value Reference Range Interpretation Comments POC-GLUCOSE METER 137 mg/dL 70-110 H TESTED AT [place] [address] ([facility]) (test code = JOHANA Gan [facility] 1538) [address] [id number] 18:22:00 Test Item Value Reference Range Interpretation Comments MAGNESIUM ([facility]) (test code = 1.8 mg/dL 1.6-2.6 627) BONE AND/OR JOINT IMAGING, WHOLE [id number] 16:34:00FINAL REPORT PROCEDURE: BONE SCAN, WHOLE BODY CPT CODE: 64013 GERI CATION: HCC PROTOCOL: 31.3 mCi of Tc-99m MDP [...] MR abdomen on August 18, 2018.. Signed: Melissa Mathew [facility] Verified Date/Time: 08/09/2018 16:34:55 Reading Location: [address] [address] Reading Room POCT-GLUCOSE [id number] 12:20:00 Test Item Value Reference Range Interpretation Comments POC-GLUCOSE METER 121 mg/dL 70-110 H TESTED AT [facility] 6720 ([facility]) (test code = JOHANA Gan [facility] 1538) [address] [id number] 12:20:00Medical Cytology Report Case: [id number] Authorizing Provider: Anjel Moya MD Collected: 08/06/2018 1400 Ordering Location: [address] Received: 08/08/2018 0943 Service Pathologist: Nadege Busby MD Specimen: Peritoneal Fluid PERITONEAL FLUID (CYTOSPINS AND CELL BLOCK): - NEGATIVE FOR MALIGNANCY PREDOMINANTLY BLOOD; ACUTE INFLAMMATORY CELLS Signing Pathologist Direct Phone Line: [phone] signed by Eliseo Busby MD on 08/09/2018 at 12:20 [id number], [id number], recently diagnosed with hepatocellular carcinoma(see [id number])PERITONEAL ILONG3499 mls orange; 4 cytospins, cell blockCollected: [id number]: 0304 19Performed.[facility], Department of Pathology, [address] [place] [phone], GansfkHenry [facility], Department [facility]ology, [address] [place] [phone], TdzylsHenry [facility], Department of P athology, [address] [place] [phone], HLEIA CULTURE 2018-08-09 11:41:00 Test Item Value Reference Range Interpretation Comments CULTURE (BEAKER) A From Anaero bic (test code = Bottle Only 1095) Eggerthella vasquez ta GRAM STAIN From anaerobic RESULT (BEAKER) bottle only: gram (test code = positive rods 1123) BODY FLUID CULTURE + GRAM [id number] 08:58:00 Test Item Value Reference Range Interpretation Comments CULTURE (BEAKER) (test code No growth = 1095) GRAM STAIN RESULT (BEAKER) 2+ WBCs (test code = 1123) GRAM STAIN RESULT (BEAKER) No organisms seen (test code = 55278) POCT-GLUCOSE [id number] 08:21:00 Test Item Value Reference Range Interpretation Comments POC-GLUCOSE METER 136 mg/dL 70-110 H TESTED AT [facility] 6720 (BEAKER) (test code = [facility] 1538) [address] [id number] 04:26:00 Test Item Value Reference Range Interpretation Comments PHOSPHORUS (BEAKER) (test code = 3.9 mg/dL 2.3-4.7 604) [id number] 04:26:00 Test Item Value Reference Range Interpretation Comments MAGNESIUM (BEAKER) (test code = 1.8 mg/dL 1.6-2.6 627) BILIRUBIN, [id number] 04:26:00 Test Item Value Reference Range Interpretation Comments BILIRUBIN DIRECT (BEAKER) (test 1.4 mg/dL 0.1-0.5 H code = 706) COMPREHENSIVE METABOLIC [id number] 04:26:00 Test Item Value Reference Range Interpretation Comments TOTAL PROTEIN 5.8 gm/dL 6.0-8.3 L (BEAKER) (test code = 770) ALBUMIN (BEAKER) 2.1 g/dL 3.5-5.0 L (test code = 1145) ALKALINE PHOSPHATASE 126 U/L 40-150 (BEAKER) (test code = 346) BILIRUBIN TOTAL 2.0 mg/dL 0.2-1.2 H (BEAKER) (test code = 377) SODIUM (BEAKER) (test 134 meq/L 136-145 L code = 381) POTASSIUM (BEAKER) 3.8 meq/L 3.5-5.1 (test code = 379) CHLORIDE (BEAKER) 104 meq/L 98-107 (test code = 382) CO2 (BEAKER) (test 25 meq/L 22-29 code = 355) BLOOD UREA NITROGEN 31 mg/dL 7-21 H (BEAKER) (test code = 354) CREATININE (BEAKER) 1.17 mg/dL 0.57-1.25 (test code = 358) GLUCOSE RANDOM 110 mg/dL 70-105 H (BEAKER) (test code = 652) CALCIUM (BEAKER) 7.7 mg/dL 8.4-10.2 L (test code = 697) AST (SGOT) (BEAKER) 59 U/L 5-34 H (test code = 353) ALT (SGPT) (BEAKER) 28 U/L 6-55 (test code = 347) EGFR (BEAKER) (test 64 mL/min/1.73 ESTIMA KE GFR IS code = 1092) sq m NOT ACCURATE CREATININE CLEARANCE IN PREDICTING GLOMERULAR FILTRATION RATE . ESTIMATED GFR I S NOT APPLICABLE FOR DIALYSIS PATIEN TS. CBC W/PLT COUNT & AUTO [id number] 04:21:00 Test Item Value Reference Range Interpretation Comments WHITE BLOOD CELL COUNT (BEAKER) 8.4 K/ L 3.5-10.5 (test code = 775) RED BLOOD CELL COUNT (BEAKER) 3.54 M/ L 4.63-6.08 L (test code = 761) HEMOGLOBIN (BEAKER) (test code = 11.3 GM/DL 13.7-17.5 L 410) HEMATOCRIT (BEAKER) (test code = 33.2 % 40.1-51.0 L 411) MEAN CORPUSCULAR VOLUME (BEAKER) 93.8 fL 79.0-92.2 H (test code = 753) MEAN CORPUSCULAR HEMOGLOBIN 31.9 pg 25.7-32.2 (BEAKER) (test code = 751) MEAN CORPUSCULAR HEMOGLOBIN CONC 34.0 GM/DL 32.3-36.5 (BEAKER) (test code = 752) RED CELL DISTRIBUTION WIDTH 17.4 % 11.6-14.4 H (BEAKER) (test code = 412) PLATELET COUNT (BEAKER) (test code 81 K/CU MM 150-450 L = 756) MEAN PLATELET VOLUME (BEAKER) 11.0 fL 9.4-12.4 (test code = 754) NUCLEATED RED BLOOD CELLS (BEAKER) 0 /100 WBC 0-0 (test code = 413) NEUTROPHILS RELATIVE PERCENT 81 % (BEAKER) (test code = 429) LYMPHOCYTES RELATIVE PERCENT 9 % (BEAKER) (test code = 430) MONOCYTES RELATIVE PERCENT 8 % (BEAKER) (test code = 431) EOSINOPHILS RELATIVE PERCENT 1 % (BEAKER) (test code = 432) BASOPHILS RELATIVE PERCENT 0 % (BEAKER) (test code = 437) NEUTROPHILS ABSOLUTE COUNT 6.85 K/ L 1.78-5.38 H (BEAKER) (test code = 670) LYMPHOCYTES ABSOLUTE COUNT 0.73 K/ L 1.32-3.57 L (BEAKER) (test code = 414) MONOCYTES ABSOLUTE COUNT (BEAKER) 0.67 K/ L 0.30-0.82 (test code = 415) EOSINOPHILS ABSOLUTE COUNT 0.09 K/ L 0.04-0.54 (BEAKER) (test code = 416) BASOPHILS ABSOLUTE COUNT (BEAKER) 0.01 K/ L 0.01-0.08 (test code = 417) IMMATURE GRANULOCYTES-RELATIVE 1 % 0-1 PERCENT (TAMY) (test code = 2801) [id number] 04:11:00 Test Item Value Reference Range Interpretation Comments PROTIME (TAMY) (test code = 17.5 seconds 11.7-14.7 H 759) INR (TAMY) (test code = 370) 1.4 <=5.9 PARTIAL THROMBOPLASTIN TIME 37.9 seconds 22.5-36.0 H (MARYAKER) (test code = 760) RECOMMENDED COUMADIN/WARFARIN INR THERAPY RANGESSTANDARD DOSE: 2.0 - 3.0 Includes: PROPHYLAXIS forvenous thrombosis, systemic embolization; TREATMENT for venous thrombosis and/or pulmonary embolus.HIGH RISK: Target INR is 2.5-3.5 for patients with mechanical heart valves.CALCIUM, [id number] 03:49:00 Test Item Value Reference Range Interpretation Comments CALCIUM IONIZED (TAMY) (test 1.03 mmol/L 1.12-1.27 L code = 698) PH, BLOOD (TAMY) (test code = 7.41 1810) POCT-GLUCOSE [id number] 21:30:00 Test Item Value Reference Range Interpretation Comments POC-GLUCOSE METER 139 mg/dL 70-110 H TESTED AT [facility] 6720 ([facility]) (test code = JOHANA Gan [facility] 1538) [address] CT, CHEST, WITHOUT [id number] 20:21:00FINAL REPORT CT scan of the chest. [...] and/or use of iterative reconstruction technique. FINDINGS: T he mediastinum demonstrates atherosclerosis but no suspicious masses [...] refer to recent dedicated abdominal imaging. Signed: Jani Aiken MDReport Verified Date/Time:08/08/2018 20:21:41 Reading Location: [address] Consult Reading Room POCT-GLUCOSE [id number] 18:52:00 Test Item Value Reference Range Interpretation Comments POC-GLUCOSE METER 129 mg/dL 70-110 H TESTED AT [facility] 6720 ([facility]) (test code = JOHANA Gan [facility] 1538) [address] [id number] 16:06:00 Test Item Value Reference Range Interpretation Comments MAGNESIUM (BEAKER) (test code = 1.8 mg/dL 1.6-2.6 627) MR, ABDOMEN, [id number] 14:37:00FINAL REPORT INDICATION:Cirrhosis. Surveillance for hepatocellular carcinoma.COMPARISON: [...] (bland) in the left portal vein. Signed: Dalia Casper MDReport Verified Date/Time: 08/08/2018 14:37:29 Reading Location: [facility] C013Y CT Body Reading Room POCT-GLUCOSE [id number] 12:13:00 Test Item Value Reference Range Interpretation Comments POC-GLUCOSE METER 126 mg/dL 70-110 H TESTED AT [place] [address] ([facility]) (test code = [facility] 1538) [address] POCT-GLUCOSE [id number] 08:54:00 Test Item Value Reference Range Interpretation Comments POC-GLUCOSE METER 172 mg/dL 70-110 H TESTED AT [place] [address] ([facility]) (test code = [facility] 1538) [address] COMPREHENSIVE METABOLIC [id number] 04:09:00 Test Item Value Reference Range Interpretation Comments TOTAL PROTEIN 6.1 gm/dL 6.0-8.3 (BEAKER) (test code = 770) ALBUMIN (BEAKER) 2.2 g/dL 3.5-5.0 L (test code = 1145) ALKALINE PHOSPHATASE 113 U/L 40-150 (BEAKER) (test code = 346) BILIRUBIN TOTAL 2.5 mg/dL 0.2-1.2 H (BEAKER) (test code = 377) SODIUM (BEAKER) (test 133 meq/L 136-145 L code = 381) POTASSIUM (BEAKER) 4.0 meq/L 3.5-5.1 (test code = 379) CHLORIDE (BEAKER) 103 meq/L 98-107 (test code = 382) CO2 (BEAKER) (test 24 meq/L 22-29 code = 355) BLOOD UREA NITROGEN 36 mg/dL 7-21 H (BEAKER) (test code = 354) CREATININE (BEAKER) 1.11 mg/dL 0.57-1.25 (test code = 358) GLUCOSE RANDOM 106 mg/dL 70-105 H (BEAKER) (test code = 652) CALCIUM (BEAKER) 7.9 mg/dL 8.4-10.2 L (test code = 697) AST (SGOT) (BEAKER) 70 U/L 5-34 H (test code = 353) ALT (SGPT) (BEAKER) 30 U/L 6-55 (test code = 347) EGFR (BEAKER) (test 68 mL/min/1.73 ESTIMA KE GFR IS code = 1092) sq m NOT ACCURATE CREATININE CLEARANCE IN PREDICTING GLOMERULAR FILTRATION RATE . ESTIMATED GFR I S NOT APPLICABLE FOR DIALYSIS PATIEN TS. Specimen slightly [id number] 04:05:00 Test Item Value Reference Range Interpretation Comments PHOSPHORUS (BEAKER) (test code = 3.4 mg/dL 2.3-4.7 604) [id number] 04:05:00 Test Item Value Reference Range Interpretation Comments MAGNESIUM (BEAKER) (test code = 1.7 mg/dL 1.6-2.6 627) BILIRUBIN, [id number] 04:05:00 Test Item Value Reference Range Interpretation Comments BILIRUBIN DIRECT (BEAKER) (test 1.9 mg/dL 0.1-0.5 H code = 706) [id number] 03:53:00 Test Item Value Reference Range Interpretation Comments MAGNESIUM (BEAKER) (test code = 1.6 mg/dL 1.6-2.6 627) [id number] 03:37:00 Test Item Value Reference Range Interpretation Comments PROTIME (BEAKER) (test code = 17.1 seconds 11.7-14.7 H 759) INR (BEAKER) (test code = 370) 1.4 <=5.9 PARTIAL THROMBOPLASTIN TIME 35.9 seconds 22.5-36.0 (BEAKER) (test code = 760) RECOMMENDED COUMADIN/WARFARIN INR THERAPY RANGESSTANDARD DOSE: 2.0 - 3.0 Includes: PROPHYLAXIS forvenous thrombosis, systemic embolization; TREATMENT for venous thrombosis and/or pulmonary embolus.HIGH RISK: Target INR is 2.5-3.5 for patients with mechanical heart valves.CBC W/PLT COUNT & AUTO DIFFERENTIAL 2018-08-08 03:29:00 Test Item Value Reference Range Interpretation Comments WHITE BLOOD CELL COUNT (BEAKER) 10.3 K/ L 3.5-10.5 (test code = 775) RED BLOOD CELL COUNT (BEAKER) 3.86 M/ L 4.63-6.08 L (test code = 761) HEMOGLOBIN (BEAKER) (test code = 12.2 GM/DL 13.7-17.5 L 410) HEMATOCRIT (BEAKER) (test code = 35.4 % 40.1-51.0 L 411) MEAN CORPUSCULAR VOLUME (BEAKER) 91.7 fL 79.0-92.2 (test code = 753) MEAN CORPUSCULAR HEMOGLOBIN 31.6 pg 25.7-32.2 (BEAKER) (test code = 751) MEAN CORPUSCULAR HEMOGLOBIN CONC 34.5 GM/DL 32.3-36.5 (BEAKER) (test code = 752) RED CELL DISTRIBUTION WIDTH 17.2 % 11.6-14.4 H (BEAKER) (test code = 412) PLATELET COUNT (BEAKER) (test code 72 K/CU MM 150-450 L = 756) MEAN PLATELET VOLUME (BEAKER) 11.0 fL 9.4-12.4 (test code = 754) NUCLEATED RED BLOOD CELLS (BEAKER) 0 /100 WBC 0-0 (test code = 413) NEUTROPHILS RELATIVE PERCENT 85 % (BEAKER) (test code = 429) LYMPHOCYTES RELATIVE PERCENT 7 % (BEAKER) (test code = 430) MONOCYTES RELATIVE PERCENT 7 % (BEAKER) (test code = 431) EOSINOPHILS RELATIVE PERCENT 1 % (BEAKER) (test code = 432) BASOPHILS RELATIVE PERCENT 0 % (BEAKER) (test code = 437) NEUTROPHILS ABSOLUTE COUNT 8.69 K/ L 1.78-5.38 H (BEAKER) (test code = 670) LYMPHOCYTES ABSOLUTE COUNT 0.69 K/ L 1.32-3.57 L (BEAKER) (test code = 414) MONOCYTES ABSOLUTE COUNT (BEAKER) 0.74 K/ L 0.30-0.82 (test code = 415) EOSINOPHILS ABSOLUTE COUNT 0.06 K/ L 0.04-0.54 (BEAKER) (test code = 416) BASOPHILS ABSOLUTE COUNT (BEAKER) 0.02 K/ L 0.01-0.08 (test code = 417) IMMATURE GRANULOCYTES-RELATIVE 1 % 0-1 PERCENT (BEAKER) (test code = 2801) CALCIUM, [id number] 03:23:00 Test Item Value Reference Range Interpretation Comments CALCIUM IONIZED (BEAKER) (test 1.00 mmol/L 1.12-1.27 L code = 698) PH, BLOOD ([facility]) (test code = 7.45 1810) POCT-GLUCOSE [id number] 22:31:00 Test Item Value Reference Range Interpretation Comments POC-GLUCOSE METER 144 mg/dL 70-110 H TESTED AT [place] [address] ([facility]) (test code = [facility] 1538) [address] POCT-GLUCOSE [id number] 16:34:00 Test Item Value Reference Range Interpretation Comments POC-GLUCOSE METER 127 mg/dL 70-110 H TESTED AT [place] [address] ([facility]) (test code = [facility] 1538) [address] POCT-GLUCOSE [id number] 12:58:00 Test Item Value Reference Range Interpretation Comments POC-GLUCOSE METER 144 mg/dL 70-110 H TESTED AT [place] [address] ([facility]) (test code = [facility] 1538) [address] CBC W/PLT COUNT & AUTO [id number] 07:12:00 Test Item Value Reference Range Interpretation Comments WHITE BLOOD CELL COUNT (BEAKER) 10.1 K/ L 3.5-10.5 (test code = 775) RED BLOOD CELL COUNT (BEAKER) 4.15 M/ L 4.63-6.08 L (test code = 761) HEMOGLOBIN (BEAKER) (test code = 13.0 GM/DL 13.7-17.5 L 410) HEMATOCRIT (BEAKER) (test code = 39.1 % 40.1-51.0 L 411) MEAN CORPUSCULAR VOLUME (BEAKER) 94.2 fL 79.0-92.2 H (test code = 753) MEAN CORPUSCULAR HEMOGLOBIN 31.3 pg 25.7-32.2 (BEAKER) (test code = 751) MEAN CORPUSCULAR HEMOGLOBIN CONC 33.2 GM/DL 32.3-36.5 (BEAKER) (test code = 752) RED CELL DISTRIBUTION WIDTH 17.3 % 11.6-14.4 H (BEAKER) (test code = 412) PLATELET COUNT (BEAKER) (test code 80 K/CU MM 150-450 L = 756) MEAN PLATELET VOLUME (BEAKER) 11.8 fL 9.4-12.4 (test code = 754) NUCLEATED RED BLOOD CELLS (BEAKER) 0 /100 WBC 0-0 (test code = 413) NEUTROPHILS RELATIVE PERCENT 83 % (BEAKER) (test code = 429) LYMPHOCYTES RELATIVE PERCENT 7 % (BEAKER) (test code = 430) MONOCYTES RELATIVE PERCENT 8 % (BEAKER) (test code = 431) EOSINOPHILS RELATIVE PERCENT 1 % (BEAKER) (test code = 432) BASOPHILS RELATIVE PERCENT 0 % (BEAKER) (test code = 437) NEUTROPHILS ABSOLUTE COUNT 8.40 K/ L 1.78-5.38 H (BEAKER) (test code = 670) LYMPHOCYTES ABSOLUTE COUNT 0.67 K/ L 1.32-3.57 L (BEAKER) (test code = 414) MONOCYTES ABSOLUTE COUNT (BEAKER) 0.78 K/ L 0.30-0.82 (test code = 415) EOSINOPHILS ABSOLUTE COUNT 0.08 K/ L 0.04-0.54 (BEAKER) (test code = 416) BASOPHILS ABSOLUTE COUNT (BEAKER) 0.01 K/ L 0.01-0.08 (test code = 417) IMMATURE GRANULOCYTES-RELATIVE 1 % 0-1 PERCENT (BEAKER) (test code = 2801) [id number] 07:07:00 Test Item Value Reference Range Interpretation Comments PREALBUMIN (BEAKER) (test code = 586) 7 mg/dL 14-45 L COMPREHENSIVE METABOLIC [id number] 06:58:00 Test Item Value Reference Range Interpretation Comments TOTAL PROTEIN 6.1 gm/dL 6.0-8.3 (BEAKER) (test code = 770) ALBUMIN (BEAKER) 2.3 g/dL 3.5-5.0 L (test code = 1145) ALKALINE PHOSPHATASE 98 U/L 40-150 (BEAKER) (test code = 346) BILIRUBIN TOTAL 2.6 mg/dL 0.2-1.2 H (BEAKER) (test code = 377) SODIUM (BEAKER) (test 133 meq/L 136-145 L code = 381) POTASSIUM (BEAKER) 3.9 meq/L 3.5-5.1 (test code = 379) CHLORIDE (BEAKER) 102 meq/L 98-107 (test code = 382) CO2 (BEAKER) (test 25 meq/L 22-29 code = 355) BLOOD UREA NITROGEN 43 mg/dL 7-21 H (BEAKER) (test code = 354) CREATININE (BEAKER) 1.17 mg/dL 0.57-1.25 (test code = 358) GLUCOSE RANDOM 93 mg/dL 70-105 (BEAKER) (test code = 652) CALCIUM (BEAKER) 7.8 mg/dL 8.4-10.2 L (test code = 697) AST (SGOT) (BEAKER) 65 U/L 5-34 H (test code = 353) ALT (SGPT) (BEAKER) 29 U/L 6-55 (test code = 347) EGFR (BEAKER) (test 64 mL/min/1.73 ESTIMA KE GFR IS code = 1092) sq m NOT ACCURATE CREATININE CLEARANCE IN PREDICTING GLOMERULAR FILTRATION RATE . ESTIMATED GFR I S NOT APPLICABLE FOR DIALYSIS PATIEN TS. Specimen slightly [id number] 06:57:00 Test Item Value Reference Range Interpretation Comments MAGNESIUM (BEAKER) (test code = 1.8 mg/dL 1.6-2.6 627) [id number] 06:57:00 Test Item Value Reference Range Interpretation Comments PHOSPHORUS (BEAKER) (test code = 3.1 mg/dL 2.3-4.7 604) [id number] 06:57:00 Test Item Value Reference Range Interpretation Comments TRIGLYCERIDES (BEAKER) (test code = 64 mg/dL 540) TRIGLYCERIDE REFERENCE RANGELow Risk <150Borderline Risk 150-199High Risk 200-499Very High Risk>=500Specimen slightly ictericBILIRUBIN, DIRECT 2018-08-07 06:57:00 Test Item Value Reference Range Interpretation Comments BILIRUBIN DIRECT (BEAKER) (test 2.0 mg/dL 0.1-0.5 H code = 706) C-REACTIVE [id number] 06:57:00 Test Item Value Reference Range Interpretation Comments C-REACTIVE PROTEIN (BEAKER) (test 3.98 mg/dL 0.00-0.50 H code = 676) [id number] 06:37:00 Test Item Value Reference Range Interpretation Comments MAGNESIUM (BEAKER) (test code = 1.8 mg/dL 1.6-2.6 627) [id number] 06:10:00 Test Item Value Reference Range Interpretation Comments PROTIME (BEAKER) (test code = 17.3 seconds 11.7-14.7 H 759) [facility] (test code = 370) 1.4 <=5.9 PARTIAL THROMBOPLASTIN TIME 38.9 seconds 22.5-36.0 H (BEAKER) (test code = 760) RECOMMENDED COUMADIN/WARFARIN INR THERAPY RANGESSTANDARD DOSE: 2.0 - 3.0 Includes: PROPHYLAXIS forvenous thrombosis, systemic embolization; TREATMENT for venous thrombosis and/or pulmonary embolus.HIGH RISK: Target INR is 2.5-3.5 for patients with mechanical heart valves.CALCIUM, [id number] 05:17:00 Test Item Value Reference Range Interpretation Comments CALCIUM IONIZED ([facility]) (test 1.01 mmol/L 1.12-1.27 L code = 698) PH, BLOOD ([facility]) (test code = 7.43 1810) POCT-GLUCOSE [id number] 22:09:00 Test Item Value Reference Range Interpretation Comments POC-GLUCOSE METER 131 mg/dL 70-110 H TESTED AT [place] [address] ([facility]) (test code = [facility] 1538) [address] POCT-GLUCOSE [id number] 16:04:00 Test Item Value Reference Range Interpretation Comments POC-GLUCOSE METER 126 mg/dL 70-110 H TESTED AT [place] [address] ([facility]) (test code = [facility] 1538) [address] U/S, [id number] 15:57:00Reason for exam:->large volume ascites FINAL REPORT Procedure: Ultrasound Guided Paracentesis: Pre procedure [...] none. Impression: Uncomplicated ultrasound-guided paracentesis Signed: Jas Recioort Verified Date/Time: 08/06/2018 15:57:17 Reading Location: [address] Consult Reading Room BODY FLUID CELL COUNT WITH [id number] 15:17:00 Test Item Value Reference Range Interpretation Comments APPEARANCE FLUID (BEAKER) (test Bloody Clear A code = 510) COLOR FLUID (BEAKER) (test code [place] Colorless, Straw A = 511) RBC FLUID (BEAKER) (test code = 49773 /cu mm <=1 H 513) ADJUSTED WBC FLUID (BEAKER) 1040 /cu mm <=5 H (test code = 1691) LINING CELLS (BEAKER) (test 0 /cu mm <=1 code = 1590) NEUTROPHILS FLUID (BEAKER) 74 % (test code = 1656) LYMPHS FLUID (BEAKER) (test 10 % code = 488) MONO/MACROPHAGE FLUID (BEAKER) 16 % (test code = 489) EOSINOPHILS FLUID (BEAKER) 0 % (test code = 491) BASO FLUID (BEAKER) (test code 0 % = 492) CONTAINER BODY FLUID (BEAKER) EDTA Tube (test code = 2873) ALBUMIN, BODY [id number] 15:15:00 Test Item Value Reference Range Interpretation Comments ALBUMIN FLUID (BEAKER) (test code = 1.0 gm/dL 501) Reference Range: No Normals Assay performance has not been validated for this type of specimen.PROTEIN, BODY [id number] 15:13:00 Test Item Value Reference Range Interpretation Comments PROTEIN FLUID (BEAKER) (test code = 1.8 g/dL 579) Absence of reference range indicates that normals have not been defined.Assay performance has not been validated for this type of specimen.BODY FLUID CULTURE + GRAM [id number] 14:46:00 Test Item Value Reference Range Interpretation Comments CULTURE (BEAKER) (test code No growth = 1095) GRAM STAIN RESULT (BEAKER) 1+ WBCs (test code = 1123) GRAM STAIN RESULT (BEAKER) No organisms seen (test code = 47917) POCT-GLUCOSE [id number] 12:05:00 Test Item Value Reference Range Interpretation Comments POC-GLUCOSE METER 204 mg/dL 70-110 H TESTED AT [facility] 6720 (BEAKER) (test code = [place] [employer] 1538) [address] POCT-GLUCOSE [id number] 08:23:00 Test Item Value Reference Range Interpretation Comments POC-GLUCOSE METER 101 mg/dL 70-110 TESTED AT [place] [address] (BEAKER) (test code = [place] [employer] 1538) [address] CBC W/PLT COUNT & AUTO [id number] 06:40:00 Test Item Value Reference Range Interpretation Comments WHITE BLOOD CELL COUNT (BEAKER) 11.1 K/ L 3.5-10.5 H (test code = 775) RED BLOOD CELL COUNT (BEAKER) 4.03 M/ L 4.63-6.08 L (test code = 761) HEMOGLOBIN (BEAKER) (test code = 12.7 GM/DL 13.7-17.5 L 410) HEMATOCRIT (BEAKER) (test code = 37.6 % 40.1-51.0 L 411) MEAN CORPUSCULAR VOLUME (BEAKER) 93.3 fL 79.0-92.2 H (test code = 753) MEAN CORPUSCULAR HEMOGLOBIN 31.5 pg 25.7-32.2 (BEAKER) (test code = 751) MEAN CORPUSCULAR HEMOGLOBIN CONC 33.8 GM/DL 32.3-36.5 (BEAKER) (test code = 752) RED CELL DISTRIBUTION WIDTH 16.7 % 11.6-14.4 H (BEAKER) (test code = 412) PLATELET COUNT (BEAKER) (test code 69 K/CU MM 150-450 L = 756) MEAN PLATELET VOLUME (BEAKER) 11.4 fL 9.4-12.4 (test code = 754) NUCLEATED RED BLOOD CELLS (BEAKER) 0 /100 WBC 0-0 (test code = 413) NEUTROPHILS RELATIVE PERCENT 84 % (BEAKER) (test code = 429) LYMPHOCYTES RELATIVE PERCENT 6 % (BEAKER) (test code = 430) MONOCYTES RELATIVE PERCENT 7 % (BEAKER) (test code = 431) EOSINOPHILS RELATIVE PERCENT 1 % (BEAKER) (test code = 432) BASOPHILS RELATIVE PERCENT 0 % (BEAKER) (test code = 437) NEUTROPHILS ABSOLUTE COUNT 9.35 K/ L 1.78-5.38 H (BEAKER) (test code = 670) LYMPHOCYTES ABSOLUTE COUNT 0.70 K/ L 1.32-3.57 L (BEAKER) (test code = 414) MONOCYTES ABSOLUTE COUNT (BEAKER) 0.78 K/ L 0.30-0.82 (test code = 415) EOSINOPHILS ABSOLUTE COUNT 0.08 K/ L 0.04-0.54 (BEAKER) (test code = 416) BASOPHILS ABSOLUTE COUNT (BEAKER) 0.02 K/ L 0.01-0.08 (test code = 417) IMMATURE GRANULOCYTES-RELATIVE 2 % 0-1 H PERCENT (BEAKER) (test code = 2801) CALCIUM, [id number] 06:02:00 Test Item Value Reference Range Interpretation Comments CALCIUM IONIZED (BEAKER) (test 0.98 mmol/L 1.12-1.27 L code = 698) PH, BLOOD (BEAKER) (test code = 7.43 1810) COMPREHENSIVE METABOLIC [id number] 05:53:00 Test Item Value Reference Range Interpretation Comments TOTAL PROTEIN 5.9 gm/dL 6.0-8.3 L (BEAKER) (test code = 770) ALBUMIN (BEAKER) 2.4 g/dL 3.5-5.0 L (test code = 1145) ALKALINE PHOSPHATASE 79 U/L 40-150 (BEAKER) (test code = 346) BILIRUBIN TOTAL 2.7 mg/dL 0.2-1.2 H (BEAKER) (test code = 377) SODIUM (BEAKER) (test 132 meq/L 136-145 L code = 381) POTASSIUM (BEAKER) 4.0 meq/L 3.5-5.1 (test code = 379) CHLORIDE (BEAKER) 101 meq/L 98-107 (test code = 382) CO2 (BEAKER) (test 26 meq/L 22-29 code = 355) BLOOD UREA NITROGEN 50 mg/dL 7-21 H (BEAKER) (test code = 354) CREATININE (BEAKER) 1.12 mg/dL 0.57-1.25 (test code = 358) GLUCOSE RANDOM 105 mg/dL 70-105 (BEAKER) (test code = 652) CALCIUM (BEAKER) 7.7 mg/dL 8.4-10.2 L (test code = 697) AST (SGOT) (BEAKER) 56 U/L 5-34 H (test code = 353) ALT (SGPT) (BEAKER) 25 U/L 6-55 (test code = 347) EGFR (BEAKER) (test 68 mL/min/1.73 ESTIMA KE GFR IS code = 1092) sq m NOT ACCURATE CREATININE CLEARANCE IN PREDICTING GLOMERULAR FILTRATION RATE . ESTIMATED GFR I S NOT APPLICABLE FOR DIALYSIS PATIEN TS. Specimen slightly [id number] 05:52:00 Test Item Value Reference Range Interpretation Comments PROTIME (BEAKER) (test code = 19.2 seconds 11.7-14.7 H 759) INR (BEAKER) (test code = 370) 1.6 <=5.9 PARTIAL THROMBOPLASTIN TIME 38.0 seconds 22.5-36.0 H (BEAKER) (test code = 760) RECOMMENDED COUMADIN/WARFARIN INR THERAPY RANGESSTANDARD DOSE: 2.0 - 3.0 Includes: PROPHYLAXIS forvenous thrombosis, systemic embolization; TREATMENT for venous thrombosis and/or pulmonary embolus.HIGH RISK: Target INR is 2.5-3.5 for patients with mechanical heart valves.[id number] 05:36:00 Test Item Value Reference Range Interpretation Comments PHOSPHORUS (BEAKER) (test code = 2.5 mg/dL 2.3-4.7 604) [id number] 05:36:00 Test Item Value Reference Range Interpretation Comments MAGNESIUM (BEAKER) (test code = 1.9 mg/dL 1.6-2.6 627) BILIRUBIN, [id number] 05:36:00 Test Item Value Reference Range Interpretation Comments BILIRUBIN DIRECT (BEAKER) (test 2.0 mg/dL 0.1-0.5 H code = 706) B-TYPE NATRIURETIC FACTOR (BNP)2018-08-06 05:32:00 Test Item Value Reference Range Interpretation Comments B-TYPE NATRIURETIC PEPTIDE (BEAKER) 139 pg/mL 0-100 H (test code = 700) BLOOD [id number] 01:01:00 Test Item Value Reference Range Interpretation Comments CULTURE (BEAKER) (test No growth in 5 days code = 1095) BLOOD [id number] 01:01:00 Test Item Value Reference Range Interpretation Comments CULTURE (BEAKER) (test No growth in 5 days code = 1095) POCT-GLUCOSE [id number] 21:48:00 Test Item Value Reference Range Interpretation Comments POC-GLUCOSE METER 155 mg/dL 70-110 H TESTED AT [facility] 6720 (BEAKER) (test code = [facility] 1538) [address] BLOOD [id number] 19:05:00 Test Item Value Reference Range Interpretation Comments CULTURE (BEAKER) A From Aerobi c Bottle (test code = Only Coagulase 1095) negative Staphylococcus GRAM STAIN From aerobic RESULT (BEAKER) bottle only: (test code = gram positive 1123) cocci in clusters POCT-GLUCOSE [id number] 17:46:00 Test Item Value Reference Range Interpretation Comments POC-GLUCOSE METER 119 mg/dL 70-110 H TESTED AT [facility] 67 [facility] (test code = [facility] 1538) [address] POCT-GLUCOSE [id number] 12:00:00 Test Item Value Reference Range Interpretation Comments POC-GLUCOSE METER 148 mg/dL 70-110 H TESTED AT [facility] 6720 ([facility] (test code = [facility] 1538) [address] COMPREHENSIVE METABOLIC [id number] 07:14:00 Test Item Value Reference Range Interpretation Comments TOTAL PROTEIN 5.4 gm/dL 6.0-8.3 L (BEAKER) (test code = 770) ALBUMIN (BEAKER) 2.4 g/dL 3.5-5.0 L (test code = 1145) ALKALINE PHOSPHATASE 65 U/L 40-150 (BEAKER) (test code = 346) BILIRUBIN TOTAL 2.8 mg/dL 0.2-1.2 H (BEAKER) (test code = 377) SODIUM (BEAKER) (test 134 meq/L 136-145 L code = 381) POTASSIUM (BEAKER) 4.0 meq/L 3.5-5.1 (test code = 379) CHLORIDE (BEAKER) 101 meq/L 98-107 (test code = 382) CO2 (BEAKER) (test 28 meq/L 22-29 code = 355) BLOOD UREA NITROGEN 58 mg/dL 7-21 H (BEAKER) (test code = 354) CREATININE (BEAKER) 1.22 mg/dL 0.57-1.25 (test code = 358) GLUCOSE RANDOM 109 mg/dL 70-105 H (BEAKER) (test code = 652) CALCIUM (BEAKER) 7.9 mg/dL 8.4-10.2 L (test code = 697) AST (SGOT) (BEAKER) 51 U/L 5-34 H (test code = 353) ALT (SGPT) (BEAKER) 23 U/L 6-55 (test code = 347) EGFR (BEAKER) (test 61 mL/min/1.73 ESTIMA KE GFR IS code = 1092) sq m NOT ACCURATE CREATININE CLEARANCE IN PREDICTING GLOMERULAR FILTRATION RATE . ESTIMATED GFR I S NOT APPLICABLE FOR DIALYSIS PATIEN TS. Specimen slightly [id number] 07:12:00 Test Item Value Reference Range Interpretation Comments PHOSPHORUS (BEAKER) (test code = 2.4 mg/dL 2.3-4.7 604) [id number] 07:12:00 Test Item Value Reference Range Interpretation Comments MAGNESIUM (BEAKER) (test code = 2.0 mg/dL 1.6-2.6 627) BILIRUBIN, [id number] 07:12:00 Test Item Value Reference Range Interpretation Comments BILIRUBIN DIRECT (BEAKER) (test 2.1 mg/dL 0.1-0.5 H code = 706) CALCIUM, [id number] 07:04:00 Test Item Value Reference Range Interpretation Comments CALCIUM IONIZED (BEAKER) (test 0.94 mmol/L 1.12-1.27 L code = 698) PH, BLOOD (BEAKER) (test code = 7.48 1810) CBC W/PLT COUNT & AUTO [id number] 07:04:00 Test Item Value Reference Range Interpretation Comments WHITE BLOOD CELL COUNT (BEAKER) 10.0 K/ L 3.5-10.5 (test code = 775) RED BLOOD CELL COUNT (BEAKER) 3.86 M/ L 4.63-6.08 L (test code = 761) HEMOGLOBIN (BEAKER) (test code = 12.2 GM/DL 13.7-17.5 L 410) HEMATOCRIT (BEAKER) (test code = 36.2 % 40.1-51.0 L 411) MEAN CORPUSCULAR VOLUME (BEAKER) 93.8 fL 79.0-92.2 H (test code = 753) MEAN CORPUSCULAR HEMOGLOBIN 31.6 pg 25.7-32.2 (BEAKER) (test code = 751) MEAN CORPUSCULAR HEMOGLOBIN CONC 33.7 GM/DL 32.3-36.5 (BEAKER) (test code = 752) RED CELL DISTRIBUTION WIDTH 16.1 % 11.6-14.4 H (BEAKER) (test code = 412) PLATELET COUNT (BEAKER) (test code 50 K/CU MM 150-450 L = 756) MEAN PLATELET VOLUME (BEAKER) 10.5 fL 9.4-12.4 (test code = 754) NUCLEATED RED BLOOD CELLS (BEAKER) 0 /100 WBC 0-0 (test code = 413) NEUTROPHILS RELATIVE PERCENT 82 % (BEAKER) (test code = 429) LYMPHOCYTES RELATIVE PERCENT 6 % (BEAKER) (test code = 430) MONOCYTES RELATIVE PERCENT 9 % (BEAKER) (test code = 431) EOSINOPHILS RELATIVE PERCENT 1 % (BEAKER) (test code = 432) BASOPHILS RELATIVE PERCENT 0 % (BEAKER) (test code = 437) NEUTROPHILS ABSOLUTE COUNT 8.13 K/ L 1.78-5.38 H (BEAKER) (test code = 670) LYMPHOCYTES ABSOLUTE COUNT 0.60 K/ L 1.32-3.57 L (BEAKER) (test code = 414) MONOCYTES ABSOLUTE COUNT (BEAKER) 0.90 K/ L 0.30-0.82 H (test code = 415) EOSINOPHILS ABSOLUTE COUNT 0.10 K/ L 0.04-0.54 (BEAKER) (test code = 416) BASOPHILS ABSOLUTE COUNT (BEAKER) 0.01 K/ L 0.01-0.08 (test code = 417) IMMATURE GRANULOCYTES-RELATIVE 2 % 0-1 H PERCENT (BEAKER) (test code = 2801) [id number] 06:40:00 Test Item Value Reference Range Interpretation Comments PROTIME (BEAKER) (test code = 20.1 seconds 11.7-14.7 H 759) INR (BEAKER) (test code = 370) 1.7 <=5.9 PARTIAL THROMBOPLASTIN TIME 38.9 seconds 22.5-36.0 H ([facility]) (test code = 760) RECOMMENDED COUMADIN/WARFARIN INR THERAPY RANGESSTANDARD DOSE: 2.0 - 3.0 Includes: PROPHYLAXIS forvenous thrombosis, systemic embolization; TREATMENT for venous thrombosis and/or pulmonary embolus.HIGH RISK: Target INR is 2.5-3.5 for patients with mechanical heart valves.POCT-GLUCOSE [id number] 05:41:00 Test Item Value Reference Range Interpretation Comments POC-GLUCOSE METER 119 mg/dL 70-110 H TESTED AT [place] [address] ([facility]) (test code = [facility] [employer] [facility] 1538) [address] POCT-GLUCOSE [id number] 23:07:00 Test Item Value Reference Range Interpretation Comments POC-GLUCOSE METER 176 mg/dL 70-110 H TESTED AT [place] [address] ([facility]) (test code = [facility] [employer] [facility] 1538) [address] POCT-GLUCOSE [id number] 17:28:00 Test Item Value Reference Range Interpretation Comments POC-GLUCOSE METER 148 mg/dL 70-110 H TESTED AT [place] [address] ([facility]) (test code = [facility] 1538) [address] [id number] 16:32:00 Test Item Value Reference Range Interpretation Comments MAGNESIUM (AKER) 3.8 mg/dL 1.6-2.6 H Specimen markedly (test code = 627) hemolyzed HEMOGLOBIN AND [id number] 16:06:00 Test Item Value Reference Range Interpretation Comments HEMOGLOBIN (BEAKER) (test code = 12.3 GM/DL 13.7-17.5 L 410) H[facility]OCRIT [facility] (test code = 35.2 % 40.1-51.0 L 411) POCT-GLUCOSE [id number] 13:34:00 Test Item Value Reference Range Interpretation Comments POC-GLUCOSE METER 179 mg/dL 70-110 H TESTED AT [place] [address] ([facility]) (test code = [facility] [employer] [facility] 1538) [address] POCT-GLUCOSE [id number] 09:10:00 Test Item Value Reference Range Interpretation Comments POC-GLUCOSE METER 172 mg/dL 70-110 H TESTED AT [place] [address] ([facility]) (test code = [place] 1538) [address] CALCIUM, [id number] 05:36:00 Test Item Value Reference Range Interpretation Comments CALCIUM IONIZED (BEAKER) (test 1.05 mmol/L 1.12-1.27 L code = 698) PH, BLOOD (BEAKER) (test code = 7.41 1810) [id number] 04:39:00 Test Item Value Reference Range Interpretation Comments PHOSPHORUS (BEAKER) (test code = 1.9 mg/dL 2.3-4.7 L 604) [id number] 04:39:00 Test Item Value Reference Range Interpretation Comments MAGNESIUM (BEAKER) (test code = 2.5 mg/dL 1.6-2.6 627) COMPREHENSIVE METABOLIC [id number] 04:39:00 Test Item Value Reference Range Interpretation Comments TOTAL PROTEIN 5.1 gm/dL 6.0-8.3 L (BEAKER) (test code = 770) ALBUMIN (BEAKER) 2.6 g/dL 3.5-5.0 L (test code = 1145) ALKALINE PHOSPHATASE 52 U/L 40-150 (BEAKER) (test code = 346) BILIRUBIN TOTAL 2.5 mg/dL 0.2-1.2 H (BEAKER) (test code = 377) SODIUM (BEAKER) (test 132 meq/L 136-145 L code = 381) POTASSIUM (BEAKER) 3.8 meq/L 3.5-5.1 (test code = 379) CHLORIDE (BEAKER) 101 meq/L 98-107 (test code = 382) CO2 (BEAKER) (test 26 meq/L 22-29 code = 355) BLOOD UREA NITROGEN 71 mg/dL 7-21 H (BEAKER) (test code = 354) CREATININE (BEAKER) 1.46 mg/dL 0.57-1.25 H (test code = 358) GLUCOSE RANDOM 124 mg/dL 70-105 H (BEAKER) (test code = 652) CALCIUM (BEAKER) 8.1 mg/dL 8.4-10.2 L (test code = 697) AST (SGOT) (BEAKER) 40 U/L 5-34 H (test code = 353) ALT (SGPT) (BEAKER) 22 U/L 6-55 (test code = 347) EGFR (BEAKER) (test 50 mL/min/1.73 ESTIMA KE GFR IS code = 1092) sq m NOT ACCURATE CREATININE CLEARANCE IN PREDICTING GLOMERULAR FILTRATION RATE . ESTIMATED GFR I S NOT APPLICABLE FOR DIALYSIS PATIEN TS. BILIRUBIN, [id number] 04:39:00 Test Item Value Reference Range Interpretation Comments BILIRUBIN DIRECT (BEAKER) (test 1.9 mg/dL 0.1-0.5 H code = 706) [id number] 04:26:00 Test Item Value Reference Range Interpretation Comments PROTIME (BEAKER) (test code = 20.0 seconds 11.7-14.7 H 759) INR (BEAKER) (test code = 370) 1.7 <=5.9 PARTIAL THROMBOPLASTIN TIME 41.2 seconds 22.5-36.0 H (BEAKER) (test code = 760) RECOMMENDED COUMADIN/WARFARIN INR THERAPY RANGESSTANDARD DOSE: 2.0 - 3.0 Includes: PROPHYLAXIS forvenous thrombosis, systemic embolization; TREATMENT for venous thrombosis and/or pulmonary embolus.HIGH RISK: Target INR is 2.5-3.5 for patients with mechanical heart valves.CBC W/PLT COUNT & AUTO DIFFERENTIAL 2018-08-04 04:23:00 Test Item Value Reference Range Interpretation Comments WHITE BLOOD CELL COUNT (BEAKER) 8.4 K/ L 3.5-10.5 (test code = 775) RED BLOOD CELL COUNT (BEAKER) 3.75 M/ L 4.63-6.08 L (test code = 761) HEMOGLOBIN (BEAKER) (test code = 11.8 GM/DL 13.7-17.5 L 410) HEMATOCRIT (BEAKER) (test code = 34.6 % 40.1-51.0 L 411) MEAN CORPUSCULAR VOLUME (BEAKER) 92.3 fL 79.0-92.2 H (test code = 753) MEAN CORPUSCULAR HEMOGLOBIN 31.5 pg 25.7-32.2 (BEAKER) (test code = 751) MEAN CORPUSCULAR HEMOGLOBIN CONC 34.1 GM/DL 32.3-36.5 (BEAKER) (test code = 752) RED CELL DISTRIBUTION WIDTH 15.5 % 11.6-14.4 H (BEAKER) (test code = 412) PLATELET COUNT (BEAKER) (test code 47 K/CU MM 150-450 L = 756) MEAN PLATELET VOLUME (BEAKER) 10.4 fL 9.4-12.4 (test code = 754) NUCLEATED RED BLOOD CELLS (BEAKER) 0 /100 WBC 0-0 (test code = 413) NEUTROPHILS RELATIVE PERCENT 80 % (BEAKER) (test code = 429) LYMPHOCYTES RELATIVE PERCENT 8 % (BEAKER) (test code = 430) MONOCYTES RELATIVE PERCENT 9 % (BEAKER) (test code = 431) EOSINOPHILS RELATIVE PERCENT 1 % (BEAKER) (test code = 432) BASOPHILS RELATIVE PERCENT 0 % (BEAKER) (test code = 437) NEUTROPHILS ABSOLUTE COUNT 6.71 K/ L 1.78-5.38 H (BEAKER) (test code = 670) LYMPHOCYTES ABSOLUTE COUNT 0.64 K/ L 1.32-3.57 L (BEAKER) (test code = 414) MONOCYTES ABSOLUTE COUNT (BEAKER) 0.78 K/ L 0.30-0.82 (test code = 415) EOSINOPHILS ABSOLUTE COUNT 0.06 K/ L 0.04-0.54 (BEAKER) (test code = 416) BASOPHILS ABSOLUTE COUNT (BEAKER) 0.01 K/ L 0.01-0.08 (test code = 417) IMMATURE GRANULOCYTES-RELATIVE 2 % 0-1 H PERCENT (BEAKER) (test code = 2801) POCT-GLUCOSE [id number] 01:53:00 Test Item Value Reference Range Interpretation Comments POC-GLUCOSE METER 143 mg/dL 70-110 H TESTED AT [facility] 6720 (BEAKER) (test code = JOHANA DUPREE [place] 1538) [address] ANAEROBIC [id number] 18:23:00 Test Item Value Reference Range Interpretation Comments CULTURE (BEAKER) (test No anaerobes isolated code = 1095) TISSUE [id number] 18:18:00Surgical Pathology Report Case: [id number] Authorizing Provider: Anjel Moya MD Collected: 07/30/2018 1101 Ordering Location: [address] Received: 08/01/2018 0810 Pathologist: Bel Cid MD Specimens: A) - Small Bowel, NOS B) -Biopsy, Liver, [...] CIRRHOSIS- see comment Signing Pathologist Direct Phone Line: [phone] signed by Bel Cid MD on 08/03/2018 at 6:18 PMPreliminary result electronically signed by [...] is positive, confirming the diagnosis of hepatocellular carcinoma.Reference:Uenishi T et al. Cytokeratin 19 expression in hepatocellular carcinoma predicts early postoperative recurrence. Cancer Sci. 2003 Mar;94(10):851-857.Intradepartmental consultation on specimen B: Dr.Sadhna Chongra88307x2; 51742; 50967 x 3; [id number] bowelA. Small bowel. B. Liver biopsy Specimen is received in two parts labeled with the patient's information and accession number.Specimen A: Received in formalin labeled "small bowel" and consists of a cylindrical segment of small bowel 61 cm in length and 3 cm in diameter, with 60 x 2 x 1.5 cm of attached mesenteric fat. The serosal surface i s diffusely dusky, including at both margins. A [...] 0.2 to 0.6 cm in greatest dimension. Eye Glass Frame Polisher sections are submitted as follows: A1, arbitrarily designated margin 1; A2, arbitrarily designated margin 2; A3, contact representative mesenteric margin, en face; A4-A5, contact representative full-thickness perforation; A6, A7, contact representative purulent areas proximal to perforation; A8- A9, contact representative bowel wall; A10, soft tissue is [...] negative for CK7.Section shows liver parenchyma with extensive/expansile fibrosis with markedcholangiolar proliferation. Few nodules of preserved non- neoplastic hepatocytes are seen. These features are suggestive of cirrhosis with parenchyma extinction foci. The interpretation of this case included the use of immunohistochemistry or special stains. Hepar-1; CK7; CK19; Arginase ;Irving'sImmunohistochemistry technical testing was performed at [facility], Pathology Laboratory where it was [...] to perform high complexity clinical laboratory testing.POCT-GLUCOSE [id number] 17:24:00 Test Item Value Reference Range Interpretation Comments POC-GLUCOSE METER 130 mg/dL 70-110 H TESTED AT [facility] 6720 (TAMY) (test code = SUSUDELFINA Elvia DUPREE [place] 1538) [address] POCT-GLUCOSE [id number] 12:03:00 Test Item Value Reference Range Interpretation Comments POC-GLUCOSE METER 142 mg/dL 70-110 H TESTED AT [facility] 6720 ([facility]) (test code = JOHANA Gan [employer] [place] 1538) [address] POCT-GLUCOSE [id number] 09:05:00 Test Item Value Reference Range Interpretation Comments POC-GLUCOSE METER 118 mg/dL 70-110 H TESTED AT [facility] 6720 ([facility]) (test code = JOHANA Gan [facility] 1538) [address] RAD, CHEST, 1 VIEW, NON [id number] 09:00:00Reason for exam:->pleural effusion vs atelectasisShould this be performed at the bedside?->YesFINAL REPORT AP view of the chest dated 08/03/2018 COMPARISON: 08/02/2018 CLINICAL INFORMATION: pleural effusion vs atelectasis Comment: Heart is normal in size. Pulmonary vasculature is unremarkable. Lungs are clear. No pulmonary infiltrate or pleural effusion is present. Left PICC line remains in place. Impression: No interval change. Signed: Elsy Tafoyaeport Verified Date/Time: 08/03/2018 09:00:26 Reading Location: [facility] Radiology Reading Room HIV-1 ANTIGEN WITH HIV-1/2 [id number] 05:55:00 Test Item Value Reference Range Interpretation Comments HIV-1 ANTIGEN WITH HIV 1\\T\\2 Nonreactive Nonreactive ANTIBODY (2) (BEAKER) (test code = 2586) [id number] 05:54:00 Test Item Value Reference Range Interpretation Comments MAGNESIUM (BEAKER) (test code = 2.8 mg/dL 1.6-2.6 H 627) COMPREHENSIVE METABOLIC [id number] 05:54:00 Test Item Value Reference Range Interpretation Comments TOTAL PROTEIN 5.1 gm/dL 6.0-8.3 L (BEAKER) (test code = 770) ALBUMIN (BEAKER) 2.7 g/dL 3.5-5.0 L (test code = 1145) ALKALINE PHOSPHATASE 54 U/L 40-150 (BEAKER) (test code = 346) BILIRUBIN TOTAL 2.7 mg/dL 0.2-1.2 H (BEAKER) (test code = 377) SODIUM (BEAKER) (test 132 meq/L 136-145 L code = 381) POTASSIUM (BEAKER) 4.0 meq/L 3.5-5.1 (test code = 379) CHLORIDE (BEAKER) 102 meq/L 98-107 (test code = 382) CO2 (BEAKER) (test 24 meq/L 22-29 code = 355) BLOOD UREA NITROGEN 84 mg/dL 7-21 H (BEAKER) (test code = 354) CREATININE (BEAKER) 2.09 mg/dL 0.57-1.25 H (test code = 358) GLUCOSE RANDOM 99 mg/dL 70-105 (BEAKER) (test code = 652) CALCIUM (BEAKER) 8.0 mg/dL 8.4-10.2 L (test code = 697) AST (SGOT) (BEAKER) 38 U/L 5-34 H (test code = 353) ALT (SGPT) (BEAKER) 24 U/L 6-55 (test code = 347) EGFR (BEAKER) (test 33 mL/min/1.73 ESTIMA KE GFR IS code = 1092) sq m NOT ACCURATE CREATININE CLEARANCE IN PREDICTING GLOMERULAR FILTRATION RATE . ESTIMATED GFR I S NOT APPLICABLE FOR DIALYSIS PATIEN TS. BASIC METABOLIC [id number] 05:54:00 Test Item Value Reference Range Interpretation Comments SODIUM (BEAKER) 132 meq/L 136-145 L (test code = 381) POTASSIUM (BEAKER) 4.0 meq/L 3.5-5.1 (test code = 379) CHLORIDE (BEAKER) 102 meq/L 98-107 (test code = 382) CO2 (BEAKER) (test 24 meq/L 22-29 code = 355) BLOOD UREA NITROGEN 84 mg/dL 7-21 H (BEAKER) (test code = 354) CREATININE (BEAKER) 2.09 mg/dL 0.57-1.25 H (test code = 358) GLUCOSE RANDOM 99 mg/dL 70-105 (BEAKER) (test code = 652) CALCIUM (BEAKER) 8.0 mg/dL 8.4-10.2 L (test code = 697) EGFR (BEAKER) (test 33 mL/min/1.73 ESTIMA KE GFR IS code = 1092) sq m NOT ACCURATE CREATININE CLEARANCE IN PREDICTING GLOMERULAR FILTRATION RATE . ESTIMATED GFR I S NOT APPLICABLE FOR DIALYSIS PATIEN TS. BILIRUBIN, [id number] 05:54:00 Test Item Value Reference Range Interpretation Comments BILIRUBIN DIRECT (BEAKER) (test 1.9 mg/dL 0.1-0.5 H code = 706) [id number] 05:53:00 Test Item Value Reference Range Interpretation Comments PHOSPHORUS (BEAKER) (test code = 2.4 mg/dL 2.3-4.7 604) [id number] 05:40:00 Test Item Value Reference Range Interpretation Comments AMMONIA (BEAKER) (test code = 348) 50 mol/L 18-72 CALCIUM, [id number] 05:39:00 Test Item Value Reference Range Interpretation Comments CALCIUM IONIZED (BEAKER) (test 0.98 mmol/L 1.12-1.27 L code = 698) PH, BLOOD (BEAKER) (test code = 7.43 1810) [id number] 05:34:00 Test Item Value Reference Range Interpretation Comments PROTIME (BEAKER) (test code = 19.2 seconds 11.7-14.7 H 759) INR (BEAKER) (test code = 370) 1.6 <=5.9 PARTIAL THROMBOPLASTIN TIME 39.4 seconds 22.5-36.0 H (BEAKER) (test code = 760) RECOMMENDED COUMADIN/WARFARIN INR THERAPY RANGESSTANDARD DOSE: 2.0 - 3.0 Includes: PROPHYLAXIS forvenous thrombosis, systemic embolization; TREATMENT for venous thrombosis and/or pulmonary embolus.HIGH RISK: Target INR is 2.5-3.5 for patients with mechanical heart valves.CBC W/PLT COUNT & AUTO DIFFERENTIAL 2018-08-03 05:16:00 Test Item Value Reference Range Interpretation Comments WHITE BLOOD CELL COUNT (BEAKER) 10.0 K/ L 3.5-10.5 (test code = 775) RED BLOOD CELL COUNT (BEAKER) 3.84 M/ L 4.63-6.08 L (test code = 761) HEMOGLOBIN (BEAKER) (test code = 12.0 GM/DL 13.7-17.5 L 410) HEMATOCRIT (BEAKER) (test code = 35.9 % 40.1-51.0 L 411) MEAN CORPUSCULAR VOLUME (BEAKER) 93.5 fL 79.0-92.2 H (test code = 753) MEAN CORPUSCULAR HEMOGLOBIN 31.3 pg 25.7-32.2 (BEAKER) (test code = 751) MEAN CORPUSCULAR HEMOGLOBIN CONC 33.4 GM/DL 32.3-36.5 (BEAKER) (test code = 752) RED CELL DISTRIBUTION WIDTH 15.3 % 11.6-14.4 H (BEAKER) (test code = 412) PLATELET COUNT (BEAKER) (test code 46 K/CU MM 150-450 L = 756) MEAN PLATELET VOLUME (BEAKER) 10.4 fL 9.4-12.4 (test code = 754) NUCLEATED RED BLOOD CELLS (BEAKER) 0 /100 WBC 0-0 (test code = 413) NEUTROPHILS RELATIVE PERCENT 81 % (BEAKER) (test code = 429) LYMPHOCYTES RELATIVE PERCENT 8 % (BEAKER) (test code = 430) MONOCYTES RELATIVE PERCENT 9 % (BEAKER) (test code = 431) EOSINOPHILS RELATIVE PERCENT 1 % (BEAKER) (test code = 432) BASOPHILS RELATIVE PERCENT 0 % (BEAKER) (test code = 437) NEUTROPHILS ABSOLUTE COUNT 8.01 K/ L 1.78-5.38 H (BEAKER) (test code = 670) LYMPHOCYTES ABSOLUTE COUNT 0.78 K/ L 1.32-3.57 L (BEAKER) (test code = 414) MONOCYTES ABSOLUTE COUNT (BEAKER) 0.92 K/ L 0.30-0.82 H (test code = 415) EOSINOPHILS ABSOLUTE COUNT 0.09 K/ L 0.04-0.54 (BEAKER) (test code = 416) BASOPHILS ABSOLUTE COUNT (BEAKER) 0.01 K/ L 0.01-0.08 (test code = 417) IMMATURE GRANULOCYTES-RELATIVE 1 % 0-1 PERCENT (BEAKER) (test code = 2801) BLOOD CULTURE IDENTIFICATION [id number] 03:38:00 Test Item Value Reference Range Interpretation Comments LISTERIA MONOCYTOGENES (test Not detected Not detected code = 20160309) STAPHYLOCOCCUS (test code = Not detected Not detected 20160512) STAPHYLOCOCCUS AUREUS (test code Not detected Not detected = 20160513) STREPTOCOCCUS (test code = Not detected Not detected 20160514) STREPTOCOCCUS AGALACTIAE (GROUP Not detected Not detected B) (test code = 6680299) STREPTOCOCCUS PNEUMONIAE (test Not detected Not detected code = 9046797) STREPTOCOCCUS PYOGENES (GROUP A) Not detected Not detected (test code = 7415520) ACINETOBACTER BAUMANNII (test Not detected Not detected code = 7849623) HAEMOPHILUS INFLUENZAE (test Not detected Not detected code = 5978943) NEISSERIA MENINGITIDIS (test Not detected Not detected code = 5003694) ENTEROBACTERIACEAE (test code = Not detected Not detected 2046943) ENTEROBACTER CLOACOE COMPLEX Not detected Not detected (test code = 7744442) KLEBSIELLA OXYTOCA (test code = Not detected Not detected 2803256) KLEBSIELLA PNEUMONIAE (test code Not detected Not detected = 1650) PROTEUS (test code = 7559329) Not detected Not detected SERRATIA MARCESCENS (test code = Not detected Not detected 0632368) NIKITA ALBICANS (test code = Not detected Not detected 8186954) NIKITA GLABRATA (test code = Not detected Not detected 3140797) NIKITA KRUSEI (test code = Not detected Not detected 3563283) NIKITA PARAPSILOSIS (test code Not detected Not detected = 7381018) NIKITA TROPICALIS (test code = Not detected Not detected 4228129) ESCHERICHIA COLI (test code = Not detected Not detected 9551158) METHICILLIN-RESISTANCE GENE Not detected (test code = 1748141) VANCOMYCIN-RESISTANCE GENE (test Not detected code = 8695056) CARBAPENEM-RESISTANCE GENE (test Not detected code = 1491761) ENTEROCOCCUS-BEAKER (test code = Not detected Not detected 2376663) PSEUDOMONAS AERUGINOSA-BEAKER Not detected Not detected (test code = 2737223) Other bacteria and resistance markers not targeted by this PCR panel cannot be excluded; therefore clinical correlation and follow up of serology, culture results, and other molecular studies is required. The results are not intended to be used as the sole means for clinical diagnosis or patient management decisions. This sample was tested at the [facility] Molecular Diagnostics Laboratory using the [employer] Blood Culture ID Panel. It is FDA cleared and has been verified and approved by the [facility] Molecular Diagnostics Laboratory for clinical use. This laboratory is CLIA-certified and College ofAmerican Pathologists (CAP)-accredited to perform high complexity testing.POCT-GLUCOSE [id number] 00:04:00 Test Item Value Reference Range Interpretation Comments POC-GLUCOSE METER 128 mg/dL 70-110 H TESTED AT [facility] 6720 (TAMY) (test code = JOHANA SNYDER 1538) [address] BODY FLUID CELL COUNT WITH [id number] 18:55:00 Test Item Value Reference Range Interpretation Comments APPEARANCE FLUID (BEAKER) (test Cloudy Clear A code = 510) COLOR FLUID (BEAKER) (test code [place] Colorless, Straw A = 511) RBC FLUID (BEAKER) (test code = 70872 /cu mm <=1 H 513) ADJUSTED WBC FLUID (BEAKER) 3910 /cu mm <=5 H (test code = 1691) LINING CELLS (BEAKER) (test 0 /cu mm <=1 code = 1590) NEUTROPHILS FLUID (BEAKER) 87 % (test code = 1656) LYMPHS FLUID (BEAKER) (test 3 % code = 488) MONO/MACROPHAGE FLUID (BEAKER) 10 % (test code = 489) EOSINOPHILS FLUID (BEAKER) 0 % (test code = 491) BASO FLUID (BEAKER) (test code 0 % = 492) CONTAINER BODY FLUID (BEAKER) EDTA Tube (test code = 2873) Intracellular bacteria seen on stained smear.POCT-GLUCOSE [id number] 18:04:00 Test Item Value Reference Range Interpretation Comments POC-GLUCOSE METER 119 mg/dL 70-110 H TESTED AT [facility] 6720 (BEAKER) (test code = JOHANA Gan [facility] 1538) [address] U/S, [id number] 17:02:00Reason for exam:->poss bile leakShould this be performed at the bedside?->YesFINAL REPORT Paracentesis: Performing MD: Nadege Arriaga M.D.Preoperative Diagno sis:AscitesPostoperative Diagnosis: AscitesAssistant: noneSpecimen: As requestedEstimated Blood Loss: [...] peritoneal space. The patient tolerated the procedure w ell. Impression:Successful, uncomplicated ultrasound guided paracentesis of the right lower quadrant peritoneal space. 1400 cc of serous sanguinous fluid was removed. Signed: Nadege Arriaga Verified Date/Time: 08/02/2018 17:02:52 Reading Location: [facility] [id number] Ultrasound Reading Room MAGNESIUM 2018-08-02 13:04:00 Test Item Value Reference Range Interpretation Comments MAGNESIUM (BEAKER) 3.0 mg/dL 1.6-2.6 H Specimen slightly (test code = 627) hemolyzed POCT-GLUCOSE [id number] 12:43:00 Test Item Value Reference Range Interpretation Comments POC-GLUCOSE METER 146 mg/dL 70-110 H TESTED AT [facility] 6720 ([facility]) (test code = JOHANA DUPREE [place] 1538) [address] HEPATITIS C PCR, [id number] 08:53:00 Test Item Value Reference Range Interpretation Comments HCV NUMERIC RESULT (TAMY) [id number] IU/mL <15 H (test code = 2700) This test uses a Real-Time Polymerase Chain Reaction (RT-PCR) methodology and was performed using JOY Ampliprep/JOY TaqMan HCV test kit version 2.0 ([employer]).Reportable range for this assay is 15 - 100,000,000 IU per mL (1.18 - 8.00 Log IU/mL).RAD, CHEST, 1 VIEW, NON DEPT 2018-08-02 08:35:00Reason for exam:->pleural effusion vs atelectasisShould this be performed at the bedside?->YesFINAL REPORT Portable chest. CLINICAL HISTORY: pleural effusion vs atelectasis. COMPARISON STUDY: Chest x-ray from yesterday. FINDINGS: The cardiac silhouette is unremarkable. The pulmonary parenchyma demonstrates atelectatic changes. A left PICC line remains. No pneumothorax isseen. Several old, healed left-sided rib fractures are seen. IMPRESSION: No significant change. Signed: Jani Aiken Verified Date/Time: 08/02/2018 08:35:29 Reading Location: [facility] Radiology Reading Room URINALYSIS W/ [id number] 07:15:00 Test Item Value Reference Range Interpretation Comments COLOR (BEAKER) (test code Yellow = 470) CLARITY (BEAKER) (test Hazy code = 469) SPECIFIC GRAVITY UA 1.017 1.001-1.035 (BEAKER) (test code = 468) PH UA (BEAKER) (test code 5.5 5.0-8.0 = 467) PROTEIN UA (BEAKER) (test 20 mg/dL Negative A code = 464) GLUCOSE UA (BEAKER) (test Negative Negative code = 365) KETONES UA (BEAKER) (test Negative Negative code = 371) BILIRUBIN UA (BEAKER) Negative Negative (test code = 462) BLOOD UA (BEAKER) (test Trace Negative A code = 461) NITRITE UA (BEAKER) (test Negative Negative code = 465) LEUKOCYTE ESTERASE UA Small Negative A (BEAKER) (test code = 466) UROBILINOGEN UA (BEAKER) 0.2 mg/dL 0.2-1.0 (test code = 463) RBC UA (BEAKER) (test code 4 /HPF = 519) WBC UA (BEAKER) (test code 17 /HPF = 520) BACTERIA (BEAKER) (test Rare code = 517) MUCUS (BEAKER) (test code Rare = 1574) SQUAMOUS EPITHELIAL 8 /HPF (BEAKER) (test code = 516) HYALINE CASTS (BEAKER) 28 /LPF (test code = 514) AMORPHOUS CRYSTALS Occasional (BEAKER) (test code = 1584) SOURCE(BEAKER) (test code Urine, Clean Catch = 5105) CALCIUM, [id number] 06:57:00 Test Item Value Reference Range Interpretation Comments CALCIUM IONIZED (BEAKER) (test 1.04 mmol/L 1.12-1.27 L code = 698) PH, BLOOD (BEAKER) (test code = 7.27 1810) COMPREHENSIVE METABOLIC [id number] 06:43:00 Test Item Value Reference Range Interpretation Comments TOTAL PROTEIN 5.7 gm/dL 6.0-8.3 L Specimen sligh tly (BEAKER) (test code = hemoly zed 770) ALBUMIN (BEAKER) 2.5 g/dL 3.5-5.0 L Specimen sl ightly (test code = 1145) hemolyzed ALKALINE PHOSPHATASE 94 U/L 40-150 (BEAKER) (test code = 346) BILIRUBIN TOTAL 2.6 mg/dL 0.2-1.2 H Specimen sli ghtly (BEAKER) (test code = hemoly zed 377) SODIUM (BEAKER) (test 132 meq/L 136-145 L code = 381) POTASSIUM (BEAKER) 4.5 meq/L 3.5-5.1 Specimen slightly (test code = 379) hemolyzed CHLORIDE (BEAKER) 103 meq/L 98-107 (test code = 382) CO2 (BEAKER) (test 21 meq/L 22-29 L code = 355) BLOOD UREA NITROGEN 90 mg/dL 7-21 H (BEAKER) (test code = 354) CREATININE (BEAKER) 2.79 mg/dL 0.57-1.25 H Specimen slightly (test code = 358) hemolyzed GLUCOSE RANDOM 98 mg/dL 70-105 (BEAKER) (test code = 652) CALCIUM (BEAKER) 8.1 mg/dL 8.4-10.2 L (test code = 697) AST (SGOT) (BEAKER) 59 U/L 5-34 H Specimen slightly (test code = 353) hemolyzed ALT (SGPT) (BEAKER) 40 U/L 6-55 Specimen slightly (test code = 347) hemolyzed EGFR (BEAKER) (test 24 mL/min/1.73 ESTIMA KE GFR IS code = 1092) sq m NOT ACCURATE CREATININE CLEARANCE IN PREDICTING GLOMERULAR FILTRATION RATE . ESTIMATED GFR I S NOT APPLICABLE FOR DIALYSIS PATIEN TS. BASIC METABOLIC [id number] 06:43:00 Test Item Value Reference Range Interpretation Comments SODIUM (BEAKER) 132 meq/L 136-145 L (test code = 381) POTASSIUM (BEAKER) 4.5 meq/L 3.5-5.1 Specimen slightly (test code = 379) hemolyzed CHLORIDE (BEAKER) 103 meq/L 98-107 (test code = 382) CO2 (BEAKER) (test 21 meq/L 22-29 L code = 355) BLOOD UREA NITROGEN 90 mg/dL 7-21 H (BEAKER) (test code = 354) CREATININE (BEAKER) 2.79 mg/dL 0.57-1.25 H Specimen slightly (test code = 358) hemolyzed GLUCOSE RANDOM 98 mg/dL 70-105 (BEAKER) (test code = 652) CALCIUM (BEAKER) 8.1 mg/dL 8.4-10.2 L (test code = 697) EGFR (BEAKER) (test 24 mL/min/1.73 ESTIMA KE GFR IS code = 1092) sq m NOT ACCURATE CREATININE CLEARANCE IN PREDICTING GLOMERULAR FILTRATION RATE . ESTIMATED GFR I S NOT APPLICABLE FOR DIALYSIS PATIEN TS. [id number] 06:42:00 Test Item Value Reference Range Interpretation Comments MAGNESIUM (BEAKER) 3.2 mg/dL 1.6-2.6 H Specimen slightly (test code = 627) hemolyzed [id number] 06:42:00 Test Item Value Reference Range Interpretation Comments PHOSPHORUS (BEAKER) 4.1 mg/dL 2.3-4.7 Specimen slightly (test code = 604) hemolyzed BILIRUBIN, [id number] 06:42:00 Test Item Value Reference Range Interpretation Comments BILIRUBIN DIRECT 1.7 mg/dL 0.1-0.5 H Specimen sl ightly (BEAKER) (test code = hemoly zed 706) CREATINE KINASE (CK)2018-08-02 06:42:00 Test Item Value Reference Range Interpretation Comments CREATINE KINASE TOTAL (BEAKER) (test 114 U/L 29-200 code = 380) B-TYPE NATRIURETIC FACTOR (BNP)2018-08-02 06:37:00 Test Item Value Reference Range Interpretation Comments B-TYPE NATRIURETIC PEPTIDE (BEAKER) 127 pg/mL 0-100 H (test code = 700) [id number] 06:27:00 Test Item Value Reference Range Interpretation Comments PROTIME (BEAKER) (test code = 17.0 seconds 11.7-14.7 H 759) INR (BEAKER) (test code = 370) 1.4 <=5.9 PARTIAL THROMBOPLASTIN TIME 36.8 seconds 22.5-36.0 H (BEAKER) (test code = 760) RECOMMENDED COUMADIN/WARFARIN INR THERAPY RANGESSTANDARD DOSE: 2.0 - 3.0 Includes: PROPHYLAXIS forvenous thrombosis, systemic embolization; TREATMENT for venous thrombosis and/or pulmonary embolus.HIGH RISK: Target INR is 2.5-3.5 for patients with mechanical heart valves.CBC W/PLT COUNT & AUTO DIFFERENTIAL 2018-08-02 06:24:00 Test Item Value Reference Range Interpretation Comments WHITE BLOOD CELL COUNT (BEAKER) 15.6 K/ L 3.5-10.5 H (test code = 775) RED BLOOD CELL COUNT (BEAKER) 4.44 M/ L 4.63-6.08 L (test code = 761) HEMOGLOBIN (BEAKER) (test code = 14.0 GM/DL 13.7-17.5 410) HEMATOCRIT (BEAKER) (test code = 42.3 % 40.1-51.0 411) MEAN CORPUSCULAR VOLUME (BEAKER) 95.3 fL 79.0-92.2 H (test code = 753) MEAN CORPUSCULAR HEMOGLOBIN 31.5 pg 25.7-32.2 (BEAKER) (test code = 751) MEAN CORPUSCULAR HEMOGLOBIN CONC 33.1 GM/DL 32.3-36.5 (BEAKER) (test code = 752) RED CELL DISTRIBUTION WIDTH 15.6 % 11.6-14.4 H (BEAKER) (test code = 412) PLATELET COUNT (BEAKER) (test code 63 K/CU MM 150-450 L = 756) MEAN PLATELET VOLUME (BEAKER) 10.0 fL 9.4-12.4 (test code = 754) NUCLEATED RED BLOOD CELLS (BEAKER) 0 /100 WBC 0-0 (test code = 413) NEUTROPHILS RELATIVE PERCENT 85 % (BEAKER) (test code = 429) LYMPHOCYTES RELATIVE PERCENT 5 % (BEAKER) (test code = 430) MONOCYTES RELATIVE PERCENT 9 % (BEAKER) (test code = 431) EOSINOPHILS RELATIVE PERCENT 0 % (BEAKER) (test code = 432) BASOPHILS RELATIVE PERCENT 0 % (BEAKER) (test code = 437) NEUTROPHILS ABSOLUTE COUNT 13.23 K/ L 1.78-5.38 H (BEAKER) (test code = 670) LYMPHOCYTES ABSOLUTE COUNT 0.73 K/ L 1.32-3.57 L (BEAKER) (test code = 414) MONOCYTES ABSOLUTE COUNT (BEAKER) 1.39 K/ L 0.30-0.82 H (test code = 415) EOSINOPHILS ABSOLUTE COUNT 0.04 K/ L 0.04-0.54 (BEAKER) (test code = 416) BASOPHILS ABSOLUTE COUNT (BEAKER) 0.04 K/ L 0.01-0.08 (test code = 417) IMMATURE GRANULOCYTES-RELATIVE 1 % 0-1 PERCENT (BEAKER) (test code = 2801) POCT-GLUCOSE [id number] 06:23:00 Test Item Value Reference Range Interpretation Comments POC-GLUCOSE METER 125 mg/dL 70-110 H TESTED AT [facility] (test code = [facility] 1538) [address] CREATININE, RANDOM [id number] 06:01:00 Test Item Value Reference Range Interpretation Comments CREATININE URINE (BEAKER) (test 110.8 mg/dL code = 375) Reference Range: No NormalsPROTEIN, RANDOM [id number] 06:01:00 Test Item Value Reference Range Interpretation Comments PROTEIN, URINE (BEAKER) (test code = 33 mg/dL 0-14 H 1569) POCT-GLUCOSE [id number] 05:48:00 Test Item Value Reference Range Interpretation Comments POC-GLUCOSE METER 115 mg/dL 70-110 H TESTED AT [place] [address] [facility] (test code = [facility] 1538) [address] BASIC METABOLIC [id number] 18:13:00 Test Item Value Reference Range Interpretation Comments SODIUM (BEAKER) 134 meq/L 136-145 L (test code = 381) POTASSIUM (BEAKER) 4.2 meq/L 3.5-5.1 (test code = 379) CHLORIDE (BEAKER) 104 meq/L 98-107 (test code = 382) CO2 (BEAKER) (test 22 meq/L 22-29 code = 355) BLOOD UREA NITROGEN 90 mg/dL 7-21 H (BEAKER) (test code = 354) CREATININE (BEAKER) 3.06 mg/dL 0.57-1.25 H (test code = 358) GLUCOSE RANDOM 130 mg/dL 70-105 H (BEAKER) (test code = 652) CALCIUM (BEAKER) 8.1 mg/dL 8.4-10.2 L (test code = 697) EGFR (BEAKER) (test 21 mL/min/1.73 ESTIMA KE GFR IS code = 1092) sq m NOT ACCURATE CREATININE CLEARANCE IN PREDICTING GLOMERULAR FILTRATION RATE . ESTIMATED GFR I S NOT APPLICABLE FOR DIALYSIS PATIEN TS. [id number] 18:05:00 Test Item Value Reference Range Interpretation Comments MAGNESIUM (BEAKER) (test code = 2.9 mg/dL 1.6-2.6 H 627) RAD, CHEST, 1 VIEW, NON [id number] 17:57:00Reason for exam:->picc repositionShould this be performed at the bedside?->YesFINAL REPORT INDICATION: picc reposition COMPARISON:August 01 at 7:16 AM CARLOS HNIQUE: Chest radiograph, single view, portable technique. FINDINGS / IMPRESSION: Left-sided PICC line has been withdrawn from the azygos vein with the tip now in the mid SVC. Lung volumes are low which decreases diagnostic accuracy. No definite consolidation or pulmonary edema. No pneumothorax or pleu ral effusion demonstrated. Cardiac and mediastinal contours unremarkable for portable technique. Signed: Dalia Casper MDReport Verified Date/Time: 08/01/2018 17:57:36 Reading Location: [facility] Radiology Reading Room -GLUCOSE [id number] 17:36:00 Test Item Value Reference Range Interpretation Comments POC-GLUCOSE METER 140 mg/dL 70-110 H TESTED AT [facility] 67 ([facility]) (test code = JOHANA Gan [facility] 1538) [address] POCT-GLUCOSE [id number] 17:35:00 Test Item Value Reference Range Interpretation Comments POC-GLUCOSE METER 137 mg/dL 70-110 H TESTED AT [facility] 6720 ([facility]) (test code = JOHANA Gan [facility] 1538) [address] SURGICALLY OBTAINED CULTURE + GRAM [id number] 15:10:00 Test Item Value Reference Range Interpretation Comments CULTURE ([facility]) (test ESCHERICHIA COLI A < 1+ Escherichia code = 1095) coli Amikacin (test code = S 1) Ampicillin + Sulbactam S (test code = 6) Aztreonam (test code = S 32) Cefepime (test code = S 51) Cefoxitin (test code = S 68) Ceftazidime (test code S = 27) Ceftriaxone (test code S = 52) Ertapenem (test code = S 38) Gentamicin (test code S = 18) Levofloxacin (test S code = 22) Meropenem (test code = S 34) Nitrofurantoin (test S code = 23) Piperacillin + S Tazobactam (test code = 29) Tetracycline (test S code = 2) Tobramycin (test code S = 25) Trimethoprim + S Sulfamethoxazole (test code = 47) GRAM STAIN RESULT <1+ White blood (BEAKER) (test code = cells seen 1123) GRAM STAIN RESULT No organisms seen (BEAKER) (test code = 357663) POCT-GLUCOSE [id number] 12:06:00 Test Item Value Reference Range Interpretation Comments POC-GLUCOSE METER 135 mg/dL 70-110 H TESTED AT [facility] 6720 (BEAKER) (test code = JOHANA SNYDER 1538) [address] JUAN DIEGO TITER AND [id number] 10:10:00 Test Item Value Reference Range Interpretation Comments JUAN DIEGO TITER (BEAKER) (test code = :160 1541) JUAN DIEGO PATTERN (BEAKER) (test code = Speckled 1781) ANTI-NUCLEAR ANTIBODY (JUAN DIEGO)2018-08-01 10:09:00 Test Item Value Reference Range Interpretation Comments ANTI-NUCLEAR ANTIBODY (JUAN DIEGO) (BEAKER) Positive Negative A (test code = 418) Test performed by IFA method.CBC W/PLT COUNT & AUTO [id number] 08:55:00 Test Item Value Reference Range Interpretation Comments WHITE BLOOD CELL COUNT (BEAKER) 14.9 K/ L 3.5-10.5 H (test code = 775) RED BLOOD CELL COUNT (BEAKER) 4.25 M/ L 4.63-6.08 L (test code = 761) HEMOGLOBIN (BEAKER) (test code = 13.5 GM/DL 13.7-17.5 L 410) HEMATOCRIT (BEAKER) (test code = 40.2 % 40.1-51.0 411) MEAN CORPUSCULAR VOLUME (BEAKER) 94.6 fL 79.0-92.2 H (test code = 753) MEAN CORPUSCULAR HEMOGLOBIN 31.8 pg 25.7-32.2 (BEAKER) (test code = 751) MEAN CORPUSCULAR HEMOGLOBIN CONC 33.6 GM/DL 32.3-36.5 (BEAKER) (test code = 752) RED CELL DISTRIBUTION WIDTH 15.4 % 11.6-14.4 H (BEAKER) (test code = 412) PLATELET COUNT (BEAKER) (test code 74 K/CU MM 150-450 L = 756) MEAN PLATELET VOLUME (BEAKER) 10.3 fL 9.4-12.4 (test code = 754) NUCLEATED RED BLOOD CELLS (BEAKER) 0 /100 WBC 0-0 (test code = 413) (CELLAVISION MANUAL DIFF)2018-08-01 08:55:00 Test Item Value Reference Range Interpretation Comments NEUTROPHILS - REL 90 % (CELLAVISION)(BEAKER) (test code = 2816) LYMPHOCYTES - REL 1 % (CELLAVISION)(BEAKER) (test code = 2817) MONOCYTES - REL 4 % (CELLAVISION)(BEAKER) (test code = 2818) BANDS - REL (CELLAVISION)(BEAKER) 5 % 0-10 (test code = 2826) NEUTROPHILS - ABS 13.41 K/ul 1.78-5.38 H (CELLAVISION)(BEAKER) (test code = 2830) LYMPHOCYTES - ABS 0.15 K/ul 1.32-3.57 L (CELLAVISION)(BEAKER) (test code = 2831) MONOCYTES - ABS 0.60 K/uL 0.30-0.82 (CELLAVISION)(BEAKER) (test code = 2832) BANDS - ABS (CELLAVISION)(BEAKER) 0.75 K/uL 0.00-0.80 (test code = 2840) TOTAL COUNTED (BEAKER) (test code 100 = 1351) WBC MORPHOLOGY (BEAKER) (test Normal code = 487) PLT MORPHOLOGY (BEAKER) (test Normal code = 486) ANISOCYTOSIS (BEAKER) (test code 2+ moderate = 961) MACROCYTES (BEAKER) (test code = 2+ moderate 964) POIKILOCYTES (BEAKER) (test code 2+ moderate = 966) ABBI CELLS (BEAKER) (test code = 1+ few 474) ARTIFACT (CELLAVISION)(BEAKER) Present (test code = 3432) PLATELET CONCENTRATION Decreased (CELLAVISION)(BEAKER) (test code = 3438) Received comment: User comments: Slide comments:RAD, CHEST, 1 VIEW, NON DEPT 2018-08-01 08:44:00Reason for exam:->pleural effusion vs atelectasisShould this [...] now located within the azygos vein. Unchanged nasogastric/orogastric tube. LUNGS: Persistent low lung volumes. No consolidation or pulmonary edema. PLEURA: No pneumothorax or significant pleural effusion. HEART AND MEDIASTINUM: The cardiomediastinal silhouette is unchanged. SOFT TISSUES AND BONES: Unchanged chronic posttraumatic deformities of left- sided ribs. Soft tissues are unremarkable. IMPRESSION:Lines/tubes as above. Otherwise, noacute cardiopulmonary abnormalities. Signed: Efren Rosas MDReport Verified Date/Time: 08/01/2018 08:44:53 Reading Location: [facility] Radiology Reading Room POCT-GLUCOSE [id number] 06:35:00 Test Item Value Reference Range Interpretation Comments POC-GLUCOSE METER 133 mg/dL 70-110 H TESTED AT [facility] 6720 ([facility]) (test code = JOHANA Gan [facility] 1538) [address] CALCIUM, [id number] 06:28:00 Test Item Value Reference Range Interpretation Comments CALCIUM IONIZED ([facility]) (test 1.11 mmol/L 1.12-1.27 L code = 698) PH, BLOOD ([facility]) (test code = 7.30 1810) HEPATITIS B CORE ANTIBODY, [id number] 06:19:00 Test Item Value Reference Range Interpretation Comments HEPATITIS B CORE TOTAL ANTIBODY Reactive Nonreactive A ([facility]) (test code = 497) COMPREHENSIVE METABOLIC [id number] 05:12:00 Test Item Value Reference Range Interpretation Comments TOTAL PROTEIN 4.8 gm/dL 6.0-8.3 L (BEAKER) (test code = 770) ALBUMIN (BEAKER) 2.2 g/dL 3.5-5.0 L (test code = 1145) ALKALINE PHOSPHATASE 77 U/L 40-150 (BEAKER) (test code = 346) BILIRUBIN TOTAL 2.6 mg/dL 0.2-1.2 H (BEAKER) (test code = 377) SODIUM (BEAKER) (test 133 meq/L 136-145 L code = 381) POTASSIUM (BEAKER) 3.8 meq/L 3.5-5.1 (test code = 379) CHLORIDE (BEAKER) 102 meq/L 98-107 (test code = 382) CO2 (BEAKER) (test 21 meq/L 22-29 L code = 355) BLOOD UREA NITROGEN 88 mg/dL 7-21 H (BEAKER) (test code = 354) CREATININE (BEAKER) 3.36 mg/dL 0.57-1.25 H (test code = 358) GLUCOSE RANDOM 118 mg/dL 70-105 H (BEAKER) (test code = 652) CALCIUM (BEAKER) 8.1 mg/dL 8.4-10.2 L (test code = 697) AST (SGOT) (BEAKER) 70 U/L 5-34 H (test code = 353) ALT (SGPT) (BEAKER) 45 U/L 6-55 (test code = 347) EGFR (BEAKER) (test 19 mL/min/1.73 ESTIMA KE GFR IS code = 1092) sq m NOT ACCURATE CREATININE CLEARANCE IN PREDICTING GLOMERULAR FILTRATION RATE . ESTIMATED GFR I S NOT APPLICABLE FOR DIALYSIS PATIEN TS. [id number] 05:05:00 Test Item Value Reference Range Interpretation Comments PHOSPHORUS (BEAKER) (test code = 5.6 mg/dL 2.3-4.7 H 604) [id number] 05:05:00 Test Item Value Reference Range Interpretation Comments MAGNESIUM (BEAKER) (test code = 2.9 mg/dL 1.6-2.6 H 627) BILIRUBIN, [id number] 05:05:00 Test Item Value Reference Range Interpretation Comments BILIRUBIN DIRECT (BEAKER) (test 2.0 mg/dL 0.1-0.5 H code = 706) LACTIC ACID, VENOUS, WHOLE [id number] 04:48:00 Test Item Value Reference Range Interpretation Comments LACTATE BLOOD VENOUS (2) (BEAKER) 1.3 mmol/L 0.5-2.2 (test code = 2872) [id number] 04:46:00 Test Item Value Reference Range Interpretation Comments PROTIME (BEAKER) (test code = 18.4 seconds 11.7-14.7 H 759) INR (BEAKER) (test code = 370) 1.5 <=5.9 PARTIAL THROMBOPLASTIN TIME 36.5 seconds 22.5-36.0 H (BEAKER) (test code = 760) RECOMMENDED COUMADIN/WARFARIN INR THERAPY RANGESSTANDARD DOSE: 2.0 - 3.0 Includes: PROPHYLAXIS forvenous thrombosis, systemic embolization; TREATMENT for venous thrombosis and/or pulmonary embolus.HIGH RISK: Target INR is 2.5-3.5 for patients with mechanical heart valves.HEPATITIS B SURFACE [id number] 03:55:00 Test Item Value Reference Range Interpretation Comments HEPATITIS B SURFACE ANTIBODY < mIU/mL <8.0 (BEAKER) (test code = 647) BASIC METABOLIC [id number] 02:50:00 Test Item Value Reference Range Interpretation Comments SODIUM (BEAKER) 131 meq/L 136-145 L (test code = 381) POTASSIUM (BEAKER) 3.8 meq/L 3.5-5.1 (test code = 379) CHLORIDE (BEAKER) 100 meq/L 98-107 (test code = 382) CO2 (BEAKER) (test 21 meq/L 22-29 L code = 355) BLOOD UREA NITROGEN 85 mg/dL 7-21 H (BEAKER) (test code = 354) CREATININE (BEAKER) 3.38 mg/dL 0.57-1.25 H (test code = 358) GLUCOSE RANDOM 128 mg/dL 70-105 H (BEAKER) (test code = 652) CALCIUM (BEAKER) 7.9 mg/dL 8.4-10.2 L (test code = 697) EGFR (BEAKER) (test 19 mL/min/1.73 ESTIMA KE GFR IS code = 1092) sq m NOT ACCURATE CREATININE CLEARANCE IN PREDICTING GLOMERULAR FILTRATION RATE . ESTIMATED GFR I S NOT APPLICABLE FOR DIALYSIS PATIEN TS. Specimen slightly ictericPOCT-GLUCOSE [id number] 01:55:00 Test Item Value Reference Range Interpretation Comments POC-GLUCOSE METER 141 mg/dL 70-110 H TESTED AT [place] [address] ([facility]) (test code = JOHANA Gan [facility] 1538) [address] TROPONIN [id number] 01:09:00 Test Item Value Reference Range Interpretation Comments TROPONIN I ([facility]) (test code = 0.01 ng/mL 0.00-0.03 397) Troponin I (TnI) levels must be interpreted [...] disease, and persistent tachyarrhythmia.ALPHA FETOPROTEIN (AFP), TUMOR MARKER 2018-08-01 01:09:00 Test Item Value Reference Range Interpretation Comments ALPHA-FETOPROTEIN ([facility]) (test 8541.3 ng/mL <10.0 H code = 1094) POCT-GLUCOSE [id number] 00:08:00 Test Item Value Reference Range Interpretation Comments POC-GLUCOSE METER 122 mg/dL 70-110 H TESTED AT [place] [address] ([facility]) (test code = JOHANA Gan [facility] 1538) [address] [id number] 22:55:00 Test Item Value Reference Range Interpretation Comments TRIGLYCERIDES (KOEZY) (test code = 53 mg/dL 540) TRIGLYCERIDE REFERENCE RANGELow Risk <150Borderline Risk 150-199High Risk 200-499Very High Risk>=500Specimen slightly ictericC-REACTIVE PROTEIN 2018-07-31 22:55:00 Test Item Value Reference Range Interpretation Comments C-REACTIVE PROTEIN (KOEZY) (test 20.08 mg/dL 0.00-0.50 H code = 676) CARCINOEMBRYONIC ANTIGEN (CEA)2018-07-31 22:48:00 Test Item Value Reference Range Interpretation Comments CARCINOEMBRYONIC ANTIGEN (KOEZY) 1.9 ng/mL 0.0-5.0 (test code = 685) HEPATITIS A ANTIBODY, [id number] 22:48:00 Test Item Value Reference Range Interpretation Comments HEPATITIS A IGG ANTIBODY (BEAKER) Nonreactive Nonreactive (test code = 2797) HEPATITIS B SURFACE [id number] 22:43:00 Test Item Value Reference Range Interpretation Comments HEPATITIS B SURFACE ANTIGEN (2) Nonreactive Nonreactive (BEAKER) (test code = 2585) [id number] 22:23:00 Test Item Value Reference Range Interpretation Comments ALPHA-1 ANTITRYPSIN (BEAKER) 258.30 mg/dL 90.00-200.00 H (test code = 502) LACTIC ACID, ARTERIAL, WHOLE [id number] 22:05:00 Test Item Value Reference Range Interpretation Comments LACTATE BLOOD ARTERIAL (2) 1.4 mmol/L 0.5-2.2 (BEAKER) (test code = 2874) POCT-GLUCOSE [id number] 19:22:00 Test Item Value Reference Range Interpretation Comments POC-GLUCOSE METER 101 mg/dL 70-110 TESTED AT [facility] 6720 ([facility]) (test code = JOHANA Gan [facility] 1538) [address] IRON, TIBC, % SAT. (WITHOUT FERRITIN)2018-07-31 18:03:00 Test Item Value Reference Range Interpretation Comments IRON (BEAKER) (test code = 547) 10.0 ug/dL 40.0-160.0 L TOTAL IRON BINDING CAPACITY 83 ug/dL 250-450 L (BEAKER) (test code = 769) IRON % SATURATION (2) (BEAKER) 12 % 20-55 L (test code = 2590) LACTIC ACID, ARTERIAL, WHOLE [id number] 17:56:00 Test Item Value Reference Range Interpretation Comments LACTATE BLOOD 1.8 mmol/L 0.5-2.2 Specimen sligh tly ARTERIAL (2) (BEAKER) hemoly zed (test code = 2874) [id number] 17:10:00 Test Item Value Reference Range Interpretation Comments FERRITIN (BEAKER) (test code = 361) 485 ng/mL 5-275 H U/S, ABDOMINAL, WITH [id number] 17:05:00Reason for exam:->cirrhosis Should this be performed [...] MDReport Verified Date/Time: 07/31/2018 17:05:57 Reading Location: [address] Ortho Consult Reading Room Electronically signed by: CUCO PASTRANA MD on 2018 05:05 PMVANCOMYCIN LEVEL, [id number] 16:50:00 Test Item Value Reference Range Interpretation Comments VANCOMYCIN TROUGH (BEAKER) (test 40.6 ug/mL 10.0-20.0 HH code = 522) [id number] 16:41:00 Test Item Value Reference Range Interpretation Comments MAGNESIUM (BEAKER) (test code = 2.5 mg/dL 1.6-2.6 627) RAD, CHEST, 1 VIEW, NON [id number] 16:05:00Reason for exam:->PICC LINE PLACEMENTShould this be performed at the bedside?->YesFINAL REPORT Comparison: 07/31/2018 at 4:17 AM TECHNIQUE: Single view of the est FINDINGS: Tip of the recently placed left PICC line projects at the cavoatrial junction. Endotracheal tube has been removed. No other significant change. Signed: Armen Peck MDReport Verified Date/Time: 07/31/2018 16:05:05 Reading Location: [address] Consult Reading Room OSMOLALITY, [id number] 15:05:00 Test Item Value Reference Range Interpretation Comments OSMOLALITY URINE (BEAKER) (test 379 mOsm/kg 40-1,400 code = 614) SODIUM, RANDOM [id number] 13:13:00 Test Item Value Reference Range Interpretation Comments SODIUM URINE (BEAKER) (test code = < meq/L 243) Reference Range: No NormalsCREATININE, RANDOM [id number] 13:07:00 Test Item Value Reference Range Interpretation Comments CREATININE URINE (BEAKER) (test 166.7 mg/dL code = 375) Reference Range: No NormalsUREA NITROGEN, RANDOM [id number] 13:07:00 Test Item Value Reference Range Interpretation Comments UREA NITROGEN URINE (BEAKER) (test 464 mg/dL code = 538) Reference Range: No NormalsPOCT-GLUCOSE [id number] 12:11:00 Test Item Value Reference Range Interpretation Comments POC-GLUCOSE METER 110 mg/dL 70-110 TESTED AT [facility] 6720 (BEAKER) (test code = JOHANA Gan [facility] 1538) [address] OSMOLALITY, [id number] 11:25:00 Test Item Value Reference Range Interpretation Comments OSMOLALITY, SERUM (BEAKER) (test 301 mOsm/kg 275-295 H code = 615) BASIC METABOLIC [id number] 10:31:00 Test Item Value Reference Range Interpretation Comments SODIUM (BEAKER) 128 meq/L 136-145 L (test code = 381) POTASSIUM (BEAKER) 4.4 meq/L 3.5-5.1 Specimen slightly (test code = 379) hemolyzed CHLORIDE (BEAKER) 100 meq/L 98-107 (test code = 382) CO2 (BEAKER) (test 17 meq/L 22-29 L code = 355) BLOOD UREA NITROGEN 76 mg/dL 7-21 H (BEAKER) (test code = 354) CREATININE (BEAKER) 3.38 mg/dL 0.57-1.25 H Specimen slightly (test code = 358) hemolyzed GLUCOSE RANDOM 111 mg/dL 70-105 H (BEAKER) (test code = 652) CALCIUM (BEAKER) 7.8 mg/dL 8.4-10.2 L (test code = 697) EGFR (BEAKER) (test 19 mL/min/1.73 ESTIMA KE GFR IS code = 1092) sq m NOT ACCURATE CREATININE CLEARANCE IN PREDICTING GLOMERULAR FILTRATION RATE . ESTIMATED GFR I S NOT APPLICABLE FOR DIALYSIS PATIEN TS. Specimen slightly ictericHEPATIC FUNCTION [id number] 10:27:00 Test Item Value Reference Range Interpretation Comments TOTAL PROTEIN (BEAKER) (test code = 5.1 gm/dL 6.0-8.3 L 770) ALBUMIN (BEAKER) (test code = 1145) 2.5 g/dL 3.5-5.0 L BILIRUBIN TOTAL (BEAKER) (test code 3.2 mg/dL 0.2-1.2 H = 377) BILIRUBIN DIRECT (BEAKER) (test 2.5 mg/dL 0.1-0.5 H code = 706) ALKALINE PHOSPHATASE (BEAKER) (test 72 U/L 40-150 code = 346) AST (SGOT) (BEAKER) (test code = 87 U/L 5-34 H 353) ALT (SGPT) (BEAKER) (test code = 51 U/L 6-55 347) Specimen slightly ictericLACTIC ACID, ARTERIAL, WHOLE [id number] 10:22:00 Test Item Value Reference Range Interpretation Comments LACTATE BLOOD ARTERIAL (2) 2.1 mmol/L 0.5-2.2 (BEAKER) (test code = 2874) Specimen slightly ictericRAD, CHEST, 1 VIEW, NON [id number] 08:05:00Reason for exam:->Intubated patientShould this be performed at the bedside?->Yes FINAL REPORT Chest, one view HISTORY: Respiratory failure Comparison: 07/30/2018 Findings: There may be small bilateral pleural effusions. The underlying lungs appear clear. The heart is normal in size. Feeding tube terminates below the diaphragm. Satisfactory endotracheal tube position. IMPRESSION: No significant interval change. Signed: Cuco Pastranaeport Verified Date/Time: 07/31/2018 08:05:10 Reading Location: [facility] B1 [id number] Ortho Consult Reading Room CBC W/PLT COUNT & AUTO [id number] 08:03:00 Test Item Value Reference Range Interpretation Comments WHITE BLOOD CELL COUNT (BEAKER) 17.3 K/ L 3.5-10.5 H (test code = 775) RED BLOOD CELL COUNT (BEAKER) 4.54 M/ L 4.63-6.08 L (test code = 761) HEMOGLOBIN (BEAKER) (test code = 14.3 GM/DL 13.7-17.5 410) HEMATOCRIT (BEAKER) (test code = 42.5 % 40.1-51.0 411) MEAN CORPUSCULAR VOLUME (BEAKER) 93.6 fL 79.0-92.2 H (test code = 753) MEAN CORPUSCULAR HEMOGLOBIN 31.5 pg 25.7-32.2 (BEAKER) (test code = 751) MEAN CORPUSCULAR HEMOGLOBIN CONC 33.6 GM/DL 32.3-36.5 (BEAKER) (test code = 752) RED CELL DISTRIBUTION WIDTH 15.1 % 11.6-14.4 H (BEAKER) (test code = 412) PLATELET COUNT (BEAKER) (test 110 K/CU MM 150-450 L code = 756) MEAN PLATELET VOLUME (BEAKER) 10.8 fL 9.4-12.4 (test code = 754) NUCLEATED RED BLOOD CELLS 0 /100 WBC 0-0 (BEAKER) (test code = 413) (CELLAVISION MANUAL DIFF)2018-07-31 08:03:00 Test Item Value Reference Range Interpretation Comments NEUTROPHILS - REL 77 % (CELLAVISION)(BEAKER) (test code = 2816) LYMPHOCYTES - REL 2 % (CELLAVISION)(BEAKER) (test code = 2817) MONOCYTES - REL 3 % (CELLAVISION)(BEAKER) (test code = 2818) EOSINOPHILS - REL 1 % (CELLAVISION)(BEAKER) (test code = 2819) BANDS - REL (CELLAVISION)(BEAKER) 17 % 0-10 H (test code = 2826) NEUTROPHILS - ABS 13.32 K/ul 1.78-5.38 H (CELLAVISION)(BEAKER) (test code = 2830) LYMPHOCYTES - ABS 0.35 K/ul 1.32-3.57 L (CELLAVISION)(BEAKER) (test code = 2831) MONOCYTES - ABS 0.52 K/uL 0.30-0.82 (CELLAVISION)(BEAKER) (test code = 2832) EOSINOPHILS - ABS 0.17 K/uL 0.04-0.54 (CELLAVISION)(BEAKER) (test code = 2834) BANDS - ABS (CELLAVISION)(BEAKER) 2.94 K/uL 0.00-0.80 H (test code = 2840) TOTAL COUNTED (BEAKER) (test code 100 = 1351) WBC MORPHOLOGY (BEAKER) (test code Normal = 487) PLT MORPHOLOGY (BEAKER) (test code Normal = 486) ANISOCYTOSIS (BEAKER) (test code = 1+ few 961) MACROCYTES (BEAKER) (test code = 1+ few 964) POIKILOCYTES (BEAKER) (test code = 1+ few 966) ABBI CELLS (BEAKER) (test code = 1+ few 474) ARTIFACT (CELLAVISION)(BEAKER) Present (test code = 3432) PLATELET CONCENTRATION Decreased (CELLAVISION)(BEAKER) (test code = 3438) Received comment: User comments: Slide comments:BLOOD GAS, [id number] 07:09:00 Test Item Value Reference Range Interpretation Comments PH ARTERIAL (BEAKER) (test code = 7.35 7.35-7.45 383) PCO2 ARTERIAL (BEAKER) (test code 36 mmHg 35-45 = 384) PO2 ARTERIAL (BEAKER) (test code 140 mmHg 80-90 H = 385) O2 SATURATION ARTERIAL (BEAKER) 98.7 % 96.0-97.0 H (test code = 386) HCO3 ARTERIAL (BEAKER) (test code 19 mmol/L 21-29 L = 388) BASE EXCESS ARTERIAL (BEAKER) -5.6 mmol/L -2.0-3.0 L (test code = 387) PATIENT TEMPERATURE (BEAKER) 37.0 C (test code = 1818) FIO2 (BEAKER) (test code = 1819) 21.0 % [id number] 05:25:00 Test Item Value Reference Range Interpretation Comments PREALBUMIN (BEAKER) (test code = 586) 4 mg/dL 14-45 L [id number] 04:43:00 Test Item Value Reference Range Interpretation Comments PROTIME (BEAKER) (test code = 18.8 seconds 11.7-14.7 H 759) INR (BEAKER) (test code = 370) 1.6 <=5.9 PARTIAL THROMBOPLASTIN TIME 35.2 seconds 22.5-36.0 (BEAKER) (test code = 760) RECOMMENDED COUMADIN/WARFARIN INR THERAPY RANGESSTANDARD DOSE: 2.0 - 3.0 Includes: PROPHYLAXIS forvenous thrombosis, systemic embolization; TREATMENT for venous thrombosis and/or pulmonary embolus.HIGH RISK: Target INR is 2.5-3.5 for patients with mechanical heart valves.LACTIC ACID, ARTERIAL, WHOLE BLOOD 2018-07-31 04:42:00 Test Item Value Reference Range Interpretation Comments LACTATE BLOOD ARTERIAL (2) 2.4 mmol/L 0.5-2.2 H (BEAKER) (test code = 2874) [id number] 04:37:00 Test Item Value Reference Range Interpretation Comments PHOSPHORUS (BEAKER) (test code = 6.9 mg/dL 2.3-4.7 H 604) [id number] 04:37:00 Test Item Value Reference Range Interpretation Comments MAGNESIUM (BEAKER) (test code = 2.1 mg/dL 1.6-2.6 627) [id number] 04:37:00 Test Item Value Reference Range Interpretation Comments ALBUMIN (BEAKER) (test code = 1145) 2.6 g/dL 3.5-5.0 L BASIC METABOLIC [id number] 04:37:00 Test Item Value Reference Range Interpretation Comments SODIUM (BEAKER) 128 meq/L 136-145 L (test code = 381) POTASSIUM (BEAKER) 4.3 meq/L 3.5-5.1 (test code = 379) CHLORIDE (BEAKER) 98 meq/L 98-107 (test code = 382) CO2 (BEAKER) (test 19 meq/L 22-29 L code = 355) BLOOD UREA NITROGEN 72 mg/dL 7-21 H (BEAKER) (test code = 354) CREATININE (BEAKER) 3.21 mg/dL 0.57-1.25 H (test code = 358) GLUCOSE RANDOM 112 mg/dL 70-105 H (BEAKER) (test code = 652) CALCIUM (BEAKER) 8.0 mg/dL 8.4-10.2 L (test code = 697) EGFR (BEAKER) (test 20 mL/min/1.73 ESTIMA KE GFR IS code = 1092) sq m NOT ACCURATE CREATININE CLEARANCE IN PREDICTING GLOMERULAR FILTRATION RATE . ESTIMATED GFR I S NOT APPLICABLE FOR DIALYSIS PATIEN TS. Specimen slightly ictericBLOOD GAS, [id number] 04:36:00 Test Item Value Reference Range Interpretation Comments PH ARTERIAL (BEAKER) (test code = 7.32 7.35-7.45 L 383) PCO2 ARTERIAL (BEAKER) (test code 41 mmHg 35-45 = 384) PO2 ARTERIAL (BEAKER) (test code 151 mmHg 80-90 H = 385) O2 SATURATION ARTERIAL (BEAKER) 98.8 % 96.0-97.0 H (test code = 386) HCO3 ARTERIAL (BEAKER) (test code 20 mmol/L 21-29 L = 388) BASE EXCESS ARTERIAL (BEAKER) -5.6 mmol/L -2.0-3.0 L (test code = 387) PATIENT TEMPERATURE (BEAKER) 37.0 C (test code = 1818) FIO2 (BEAKER) (test code = 1819) 40.0 % CALCIUM, [id number] 04:36:00 Test Item Value Reference Range Interpretation Comments CALCIUM IONIZED (BEAKER) (test 1.01 mmol/L 1.12-1.27 L code = 698) PH, BLOOD (BEAKER) (test code = 7.32 1810) BLOOD CULTURE IDENTIFICATION [id number] 03:17:00 Test Item Value Reference Interpretation Comments Range LISTERIA MONOCYTOGENES Not detected Not detected (test code = 3222912) STAPHYLOCOCCUS (test Detected Not detected A First l ine therapy: code = 4341864) Cefazolin, N afcillin (Nafcillin pref erred for Central Ner vous System infecti on) Coagulase Negat ritu Staphylococcus (CoNS) DETECTEDmecA NO T DETECTEDReferen ce Range: Not Dete cted STAPHYLOCOCCUS AUREUS Not detected Not detected (test code = 8430568) STREPTOCOCCUS (test Not detected Not detected code = 4845584) STREPTOCOCCUS Not detected Not detected AGALACTIAE (GROUP B) (test code = 0095216) STREPTOCOCCUS Not detected Not detected PNEUMONIAE (test code = 5669646) STREPTOCOCCUS PYOGENES Not detected Not detected (GROUP A) (test code = 8576760) ACINETOBACTER BAUMANNII Not detected Not detected (test code = 2411321) HAEMOPHILUS INFLUENZAE Not detected Not detected (test code = 1621460) NEISSERIA MENINGITIDIS Not detected Not detected (test code = 9064759) ENTEROBACTERIACEAE Not detected Not detected (test code = 6188482) ENTEROBACTER CLOACOE Not detected Not detected COMPLEX (test code = 3671500) KLEBSIELLA OXYTOCA Not detected Not detected (test code = 7596469) KLEBSIELLA PNEUMONIAE Not detected Not detected (test code = 1650) PROTEUS (test code = Not detected Not detected [id number]) SERRATIA MARCESCENS Not detected Not detected (test code = 0586191) NIKITA ALBICANS (test Not detected Not detected code = 7317062) NIKITA GLABRATA (test Not detected Not detected code = 9534788) NIKITA KRUSEI (test Not detected Not detected code = 3551447) NIKITA PARAPSILOSIS Not detected Not detected (test code = 0337445) NIKITA TROPICALIS Not detected Not detected (test code = 0201781) ESCHERICHIA COLI (test Not detected Not detected code = 3012965) METHICILLIN-RESISTANCE Not detected Not detected GENE (test code = 6346189) VANCOMYCIN-RESISTANCE Not detected GENE (test code = 8838840) CARBAPENEM-RESISTANCE Not detected GENE (test code = 1757600) ENTEROCOCCUS-BEAKER Not detected Not detected (test code = 4273951) PSEUDOMONAS Not detected Not detected AERUGINOSA-BEAKER (test code = 0614543) Other bacteria and resistance markers not targeted by this PCR panel cannot be excluded; therefore clinical correlation and follow up of serology, culture results, and other molecular studies is required. The results are not intended to be used as the sole means for clinical diagnosis or patient management decisions. This sample was tested at the [facility] Molecular [facility]ostics Laboratory using the ContextoolArray Blood Culture ID Panel. It is FDA cleared and has been verified and approved by the [facility] for clinical use. This laboratory is CLIA-certified and College ofAmerican Pathologists (CAP)-accredited to perform high complexity testing.BASIC METABOLIC [id number] 01:44:00 Test Item Value Reference Range Interpretation Comments SODIUM (BEAKER) 129 meq/L 136-145 L (test code = 381) POTASSIUM (BEAKER) 4.5 meq/L 3.5-5.1 (test code = 379) CHLORIDE (BEAKER) 100 meq/L 98-107 (test code = 382) CO2 (BEAKER) (test 19 meq/L 22-29 L code = 355) BLOOD UREA NITROGEN 68 mg/dL 7-21 H (BEAKER) (test code = 354) CREATININE (BEAKER) 2.96 mg/dL 0.57-1.25 H (test code = 358) GLUCOSE RANDOM 119 mg/dL 70-105 H (BEAKER) (test code = 652) CALCIUM (BEAKER) 7.7 mg/dL 8.4-10.2 L (test code = 697) EGFR (BEAKER) (test 22 mL/min/1.73 ESTIMA KE GFR IS code = 1092) sq m NOT ACCURATE CREATININE CLEARANCE IN PREDICTING GLOMERULAR FILTRATION RATE . ESTIMATED GFR I S NOT APPLICABLE FOR DIALYSIS PATICASEY TS. [id number] 01:40:00 Test Item Value Reference Range Interpretation Comments MAGNESIUM (BEAKER) (test code = 1.9 mg/dL 1.6-2.6 627) [id number] 01:37:00 Test Item Value Reference Range Interpretation Comments MAGNESIUM (BEAKER) (test code = 1.9 mg/dL 1.6-2.6 627) HEMOGLOBIN AND [id number] 00:58:00 Test Item Value Reference Range Interpretation Comments HEMOGLOBIN (BEAKER) (test code = 15.3 GM/DL 13.7-17.5 410) HEMATOCRIT (BEAKER) (test code = 45.5 % 40.1-51.0 411) HEMOGLOBIN AND [id number] 00:58:00 Test Item Value Reference Range Interpretation Comments HEMOGLOBIN (BEAKER) (test code = 15.3 GM/DL 13.7-17.5 410) HEMATOCRIT (BEAKER) (test code = 45.5 % 40.1-51.0 411) POCT-GLUCOSE [id number] 23:40:00 Test Item Value Reference Range Interpretation Comments POC-GLUCOSE METER 119 mg/dL 70-110 H TESTED AT [facility] 6720 (BEAKER) (test code = JOHANA DUPREE [place] 1538) [address] LACTIC ACID, ARTERIAL, WHOLE [id number] 23:38:00 Test Item Value Reference Range Interpretation Comments LACTATE BLOOD ARTERIAL (2) 2.8 mmol/L 0.5-2.2 H (BEAKER) (test code = 2874) CALCIUM, [id number] 23:22:00 Test Item Value Reference Range Interpretation Comments CALCIUM IONIZED (BEAKER) (test 0.97 mmol/L 1.12-1.27 L code = 698) PH, BLOOD (BEAKER) (test code = 7.35 1810) POCT-GLUCOSE [id number] 21:40:00 Test Item Value Reference Range Interpretation Comments POC-GLUCOSE METER 109 mg/dL 70-110 TESTED AT [facility] 6720 (BEAKER) (test code = JOHANA Gan [facility] 1538) [address] LACTIC ACID, ARTERIAL, WHOLE [id number] 19:44:00 Test Item Value Reference Range Interpretation Comments LACTATE BLOOD 2.4 mmol/L 0.5-2.2 H Specimen sligh tly ARTERIAL (2) (BEAKER) hemoly zed (test code = 2874) BLOOD GAS, [id number] 16:39:00 Test Item Value Reference Range Interpretation Comments PH ARTERIAL (BEAKER) (test code = 7.35 7.35-7.45 383) PCO2 ARTERIAL (BEAKER) (test code 36 mmHg 35-45 = 384) PO2 ARTERIAL (BEAKER) (test code 156 mmHg 80-90 H = 385) O2 SATURATION ARTERIAL (BEAKER) 98.9 % 96.0-97.0 H (test code = 386) HCO3 ARTERIAL (BEAKER) (test code 19 mmol/L 21-29 L = 388) BASE EXCESS ARTERIAL (BEAKER) -5.8 mmol/L -2.0-3.0 L (test code = 387) PATIENT TEMPERATURE (BEAKER) 37.0 C (test code = 1818) FIO2 (BEAKER) (test code = 1819) 40.0 % BASIC METABOLIC [id number] 15:08:00 Test Item Value Reference Range Interpretation Comments SODIUM (BEAKER) 128 meq/L 136-145 L (test code = 381) POTASSIUM (BEAKER) 4.0 meq/L 3.5-5.1 Specimen slightly (test code = 379) hemolyzed CHLORIDE (BEAKER) 98 meq/L 98-107 (test code = 382) CO2 (BEAKER) (test 19 meq/L 22-29 L code = 355) BLOOD UREA NITROGEN 60 mg/dL 7-21 H (BEAKER) (test code = 354) CREATININE (BEAKER) 2.35 mg/dL 0.57-1.25 H Specimen slightly (test code = 358) hemolyzed GLUCOSE RANDOM 125 mg/dL 70-105 H (BEAKER) (test code = 652) CALCIUM (BEAKER) 7.6 mg/dL 8.4-10.2 L (test code = 697) EGFR (BEAKER) (test 29 mL/min/1.73 ESTIMA KE GFR IS code = 1092) sq m NOT ACCURATE CREATININE CLEARANCE IN PREDICTING GLOMERULAR FILTRATION RATE . ESTIMATED GFR I S NOT APPLICABLE FOR DIALYSIS PATIEN TS. Specimen slightly ictericLACTIC ACID, VENOUS, WHOLE [id number] 15:07:00 Test Item Value Reference Range Interpretation Comments LACTATE BLOOD VENOUS (2) (BEAKER) 2.4 mmol/L 0.5-2.2 H (test code = 2872) [id number] 15:06:00 Test Item Value Reference Range Interpretation Comments MAGNESIUM (BEAKER) 2.1 mg/dL 1.6-2.6 Specimen slightly (test code = 627) hemolyzed [id number] 15:06:00 Test Item Value Reference Range Interpretation Comments PHOSPHORUS (BEAKER) 6.9 mg/dL 2.3-4.7 H Specimen slightly (test code = 604) hemolyzed BLOOD GAS, [id number] 15:05:00 Test Item Value Reference Range Interpretation Comments PH ARTERIAL (BEAKER) (test code = 7.38 7.35-7.45 383) PCO2 ARTERIAL (BEAKER) (test code 36 mmHg 35-45 = 384) PO2 ARTERIAL (BEAKER) (test code 176 mmHg 80-90 H = 385) O2 SATURATION ARTERIAL (BEAKER) 99.2 % 96.0-97.0 H (test code = 386) HCO3 ARTERIAL (BEAKER) (test code 21 mmol/L 21-29 = 388) BASE EXCESS ARTERIAL (BEAKER) -4.1 mmol/L -2.0-3.0 L (test code = 387) PATIENT TEMPERATURE (BEAKER) 36.4 C (test code = 1818) FIO2 (BEAKER) (test code = 1819) 40.0 % CBC (HEMOGRAM ONLY)2018-07-30 14:50:00 Test Item Value Reference Range Interpretation Comments WHITE BLOOD CELL COUNT (BEAKER) 15.2 K/ L 3.5-10.5 H (test code = 775) RED BLOOD CELL COUNT (BEAKER) 4.91 M/ L 4.63-6.08 (test code = 761) HEMOGLOBIN (BEAKER) (test code = 15.6 GM/DL 13.7-17.5 410) HEMATOCRIT (BEAKER) (test code = 45.6 % 40.1-51.0 411) MEAN CORPUSCULAR VOLUME (BEAKER) 92.9 fL 79.0-92.2 H (test code = 753) MEAN CORPUSCULAR HEMOGLOBIN 31.8 pg 25.7-32.2 (BEAKER) (test code = 751) MEAN CORPUSCULAR HEMOGLOBIN CONC 34.2 GM/DL 32.3-36.5 (BEAKER) (test code = 752) RED CELL DISTRIBUTION WIDTH 15.0 % 11.6-14.4 H (BEAKER) (test code = 412) PLATELET COUNT (BEAKER) (test 119 K/CU MM 150-450 L code = 756) MEAN PLATELET VOLUME (BEAKER) 11.0 fL 9.4-12.4 (test code = 754) NUCLEATED RED BLOOD CELLS 0 /100 WBC 0-0 (BEAKER) (test code = 413) RAD, CHEST, 1 VIEW, NON [id number] 13:33:00Reason for exam:- >IntubatedShould this be performed at the bedside?->YesFINAL REPORT RAD, CHEST, 1 VIEW, NON DEPT INDICATION: Intubated COMPARISON: Seven hours prior FINDINGS: Portable frontal view of the chest. IMPRESSION: Support Lines: Intervalendotracheal intubation terminating 8 cm above the kamilah. Enteric tube is stable. Lungs and pleura:Unchanged appearance of the air spaces. No pneumothorax.Heart and mediastinum: Stable contours. Stabl e surgical changes.Additional findings: None. Signed: JR Felton Robert MDReport Verified Date/Time: 07/30/2018 13:33:24 Reading Location: [facility] B1 C013V Neuro Reading Room POCT-GLUCOSE [id number] 12:53:00 Test Item Value Reference Range Interpretation Comments POC-GLUCOSE METER 119 mg/dL 70-110 H TESTED AT [facility] 6720 (BEAKER) (test code = J[place]ANA [place]UP[place] 1538) [address] CALCIUM, [id number] 10:43:00 Test Item Value Reference Range Interpretation Comments CALCIUM IONIZED (BEAKER) (test 0.87 mmol/L 1.12-1.27 L code = 698) PH, BLOOD (BEAKER) (test code = 7.32 1810) BLOOD GAS, [id number] 10:42:00 Test Item Value Reference Range Interpretation Comments PH ARTERIAL (BEAKER) (test code = 7.32 7.35-7.45 L 383) PCO2 ARTERIAL (BEAKER) (test code 41 mmHg 35-45 = 384) PO2 ARTERIAL (BEAKER) (test code 352 mmHg 80-90 H = 385) O2 SATURATION ARTERIAL (BEAKER) 99.7 % 96.0-97.0 H (test code = 386) HCO3 ARTERIAL (BEAKER) (test code 21 mmol/L 21-29 = 388) BASE EXCESS ARTERIAL (BEAKER) -4.9 mmol/L -2.0-3.0 L (test code = 387) PATIENT TEMPERATURE (BEAKER) 37.0 C (test code = 1818) FIO2 (BEAKER) (test code = 1819) 100.0 % SODIUM NA-STAT [id number] 10:42:00 Test Item Value Reference Range Interpretation Comments SODIUM (BEAKER) (test code = 381) 127 meq/L 135-148 L POTASSIUM-STAT [id number] 10:42:00 Test Item Value Reference Range Interpretation Comments POTASSIUM (BEAKER) (test code = 3.3 meq/L 3.6-5.5 L 379) HGB/HCT (H&H) - STAT [id number] 10:42:00 Test Item Value Reference Range Interpretation Comments HEMOGLOBIN (BEAKER) (test code = 14.6 g/dL 13.0-16.8 410) HEMATOCRIT (BEAKER) (test code = 43.0 % 40.0-50.0 411) GLUCOSE-STAT [id number] 10:40:00 Test Item Value Reference Range Interpretation Comments GLUCOSE RANDOM (BEAKER) (test code = 93 mg/dL 70-110 652) OSMOLALITY, [id number] 08:45:00 Test Item Value Reference Range Interpretation Comments OSMOLALITY URINE (BEAKER) (test 368 mOsm/kg 40-1,400 code = 614) CBC W/PLT COUNT & AUTO [id number] 07:28:00 Test Item Value Reference Range Interpretation Comments WHITE BLOOD CELL COUNT (BEAKER) 22.1 K/ L 3.5-10.5 H (test code = 775) RED BLOOD CELL COUNT (BEAKER) 5.55 M/ L 4.63-6.08 (test code = 761) HEMOGLOBIN (BEAKER) (test code = 17.8 GM/DL 13.7-17.5 H 410) HEMATOCRIT (BEAKER) (test code = 50.7 % 40.1-51.0 411) MEAN CORPUSCULAR VOLUME (BEAKER) 91.4 fL 79.0-92.2 (test code = 753) MEAN CORPUSCULAR HEMOGLOBIN 32.1 pg 25.7-32.2 (BEAKER) (test code = 751) MEAN CORPUSCULAR HEMOGLOBIN CONC 35.1 GM/DL 32.3-36.5 (BEAKER) (test code = 752) RED CELL DISTRIBUTION WIDTH 14.7 % 11.6-14.4 H (BEAKER) (test code = 412) PLATELET COUNT (BEAKER) (test 143 K/CU MM 150-450 L code = 756) MEAN PLATELET VOLUME (BEAKER) 10.5 fL 9.4-12.4 (test code = 754) NUCLEATED RED BLOOD CELLS 0 /100 WBC 0-0 (BEAKER) (test code = 413) (CELLAVISION MANUAL DIFF)2018-07-30 07:28:00 Test Item Value Reference Range Interpretation Comments NEUTROPHILS - REL 79 % (CELLAVISION)(BEAKER) (test code = 2816) MONOCYTES - REL 3 % (CELLAVISION)(BEAKER) (test code = 2818) BANDS - REL (CELLAVISION)(BEAKER) 18 % 0-10 H (test code = 2826) NEUTROPHILS - ABS 17.46 K/ul 1.78-5.38 H (CELLAVISION)(BEAKER) (test code = 2830) MONOCYTES - ABS 0.66 K/uL 0.30-0.82 (CELLAVISION)(BEAKER) (test code = 2832) BANDS - ABS (CELLAVISION)(BEAKER) 3.98 K/uL 0.00-0.80 H (test code = 2840) TOTAL COUNTED (BEAKER) (test code 100 = 1351) MANUAL NRBC PER 100 CELLS 1 /100 WBC 0-0 H (BEAKER) (test code = 1353) WBC MORPHOLOGY (BEAKER) (test Normal code = 487) GIANT PLATELETS (BEAKER) (test Present code = 313) POLYCHROMATOPHILLIC RBCS(BEAKER) 3+ many (test code = 478) ANISOCYTOSIS (BEAKER) (test code 2+ moderate = 961) MICROCYTES (BEAKER) (test code = 1+ few 965) MACROCYTES (BEAKER) (test code = 2+ moderate 964) POIKILOCYTES (BEAKER) (test code 3+ many = 966) OVALOCYTES (BEAKER) (test code = 1+ few 477) ACANTHOCYTES (BEAKER) (test code 1+ few = 471) ABBI CELLS (BEAKER) (test code = 2+ moderate 474) ARTIFACT (CELLAVISION)(BEAKER) Present (test code = 3432) PLATELET CONCENTRATION Adequate (CELLAVISION)(BEAKER) (test code = 3438) Received comment: User comments: Slide comments:SODIUM, RANDOM [id number] 07:26:00 Test Item Value Reference Range Interpretation Comments SODIUM URINE (BEAKER) (test code = < meq/L 243) Reference Range: No NormalsCREATININE, RANDOM [id number] 07:16:00 Test Item Value Reference Range Interpretation Comments CREATININE URINE (BEAKER) (test 131.7 mg/dL code = 375) Reference Range: No NormalsTROPONIN [id number] 07:09:00 Test Item Value Reference Range Interpretation Comments TROPONIN I (BEAKER) (test code = 0.03 ng/mL 0.00-0.03 397) Troponin I (TnI) levels must be interpreted [...] and persistent tachyarrhythmia.RAD, CHEST, 1 VIEW, NON [id number] 07:05:00Reason for exam:->right lung consolidationShould this be performed at the bedside?->YesFINAL REPORT RAD, CHEST, 1 VIEW, NON DEPT INDICATION: right lung consolidation COMPARISON: None FINDINGS: Portable frontal view of the chest. IMPRESSION: Support Lines: Enteric tube side-port is visible. Lungs and pleura: Basilar subsegmental atelectasis noted bilaterally. Focal consolidation. No pneumothorax.Heart and mediastinum: Unremarkable contours given the degree of under inspiration.Additional findings: None. Signed: JR Jose Francisco, Rosalino [facility] Verified Date/Time: 07/30/2018 07:05:02 Reading Location: [address] Neuro Reading Room [id number] 06:53:00 Test Item Value Reference Range Interpretation Comments PROCALCITONIN (BEAKER) (test code 9.52 ng/mL <0.05 H = 3036) SEPSIS RISK (ng/mL)Low: 0.05-0.50Intermediate: 0.51-2.00High: >=2.01LACTIC ACID, VENOUS, WHOLE [id number] 06:41:00 Test Item Value Reference Range Interpretation Comments LACTATE BLOOD VENOUS 6.6 mmol/L 0.5-2.2 H Specime n moderately (2) (BEAKER) (test hemolyzed code = 2872) BLOOD GAS, [id number] 06:39:00 Test Item Value Reference Range Interpretation Comments PH VENOUS (BEAKER) (test code = 7.37 7.32-7.42 701) PCO2 VENOUS (BEAKER) (test code = 33 mmHg 41-51 L 755) PO2 VENOUS (BEAKER) (test code = 62 mmHg 25-40 H 702) O2 SATURATION VENOUS (BEAKER) 92.6 % 40.0-70.0 H (test code = 703) HCO3 VENOUS (BEAKER) (test code = 19 mmol/L 21-29 L 705) BASE EXCESS VENOUS (BEAKER) (test -5.5 mmol/L -2.0-3.0 L code = 704) PATIENT TEMPERATURE (BEAKER) 36.0 C (test code = 1818) FIO2 (BEAKER) (test code = 1819) 100.0 % POCT-GLUCOSE [id number] 06:32:00 Test Item Value Reference Range Interpretation Comments POC-GLUCOSE METER 123 mg/dL 70-110 H TESTED AT [facility] 6720 (BEAKER) (test code = JOHANA DUPREE [place] 1538) [address] RAD, ABDOMEN/KUB, 1 VIEW [id number] 06:03:00Reason for exam:->abdominal distension/ NGT placementShould this [...] pelvis. Visualized osseous structures are unremarkable. Signed: Yadira Austinun[facility] Verified Date/Time: 07/30/2018 06:03:17 Reading Location: [address] Transitional Reading Room [id number] 05:33:00 Test Item Value Reference Range Interpretation Comments PROTIME (BEAKER) (test code = 17.3 seconds 11.7-14.7 H 759) INR (BEAKER) (test code = 370) 1.4 <=5.9 PARTIAL THROMBOPLASTIN TIME 31.6 seconds 22.5-36.0 (BEAKER) (test code = 760) RECOMMENDED COUMADIN/WARFARIN INR THERAPY RANGESSTANDARD DOSE: 2.0 - 3.0 Includes: PROPHYLAXIS forvenous thrombosis, systemic embolization; TREATMENT for venous thrombosis and/or pulmonary embolus.HIGH RISK: Target INR is 2.5-3.5 for patients with mechanical heart valves.[id number] 05:24:00 Test Item Value Reference Range Interpretation Comments MAGNESIUM (BEAKER) 2.0 mg/dL 1.6-2.6 Specimen slightly (test code = 627) hemolyzed [id number] 05:24:00 Test Item Value Reference Range Interpretation Comments PHOSPHORUS (BEAKER) 6.9 mg/dL 2.3-4.7 H Specimen slightly (test code = 604) hemolyzed COMPREHENSIVE METABOLIC [id number] 05:24:00 Test Item Value Reference Range Interpretation Comments TOTAL PROTEIN 6.5 gm/dL 6.0-8.3 Specimen sligh tly (BEAKER) (test code = hemoly zed 770) ALBUMIN (BEAKER) 2.4 g/dL 3.5-5.0 L Specimen sl ightly (test code = 1145) hemolyzed ALKALINE PHOSPHATASE 106 U/L 40-150 (BEAKER) (test code = 346) BILIRUBIN TOTAL 3.5 mg/dL 0.2-1.2 H Specimen sli ghtly (BEAKER) (test code = hemoly zed 377) SODIUM (BEAKER) (test 127 meq/L 136-145 L code = 381) POTASSIUM (BEAKER) 4.2 meq/L 3.5-5.1 Specimen slightly (test code = 379) hemolyzed CHLORIDE (BEAKER) 90 meq/L 98-107 L (test code = 382) CO2 (BEAKER) (test 20 meq/L 22-29 L code = 355) BLOOD UREA NITROGEN 56 mg/dL 7-21 H (BEAKER) (test code = 354) CREATININE (BEAKER) 2.29 mg/dL 0.57-1.25 H Specimen slightly (test code = 358) hemolyzed GLUCOSE RANDOM 121 mg/dL 70-105 H (BEAKER) (test code = 652) CALCIUM (BEAKER) 8.4 mg/dL 8.4-10.2 (test code = 697) AST (SGOT) (BEAKER) 70 U/L 5-34 H Specimen slightly (test code = 353) hemolyzed ALT (SGPT) (BEAKER) 46 U/L 6-55 Specimen slightly (test code = 347) hemolyzed EGFR (BEAKER) (test 30 mL/min/1.73 ESTIMA KE GFR IS code = 1092) sq m NOT ACCURATE CREATININE CLEARANCE IN PREDICTING GLOMERULAR FILTRATION RATE . ESTIMATED GFR I S NOT APPLICABLE FOR DIALYSIS PATIEN TS. Specimen slightly [id number] 05:24:00 Test Item Value Reference Range Interpretation Comments AMYLASE (BEAKER) (test 59 U/L 25-125 Speci men slightly code = 349) hemolyzed Specimen slightly [id number] 05:24:00 Test Item Value Reference Range Interpretation Comments LIPASE (BEAKER) (test code = 749) 86 U/L 8-78 H Specimen slightly ictericLACTIC ACID, VENOUS, WHOLE [id number] 05:20:00 Test Item Value Reference Range Interpretation Comments LACTATE BLOOD VENOUS 5.6 mmol/L 0.5-2.2 H Specime n markedly (2) (BEAKER) (test hemolyzed code = 3392)
--- OUTSIDE RECORDS SUMMARY | 2019-11-16 16:01 | XMS REPORT | Encounter Summary ---
:1960 Author Care Team Providers Name Role Phone Dr. Bob Klein III Primary Care Provider [phone] Reason for Visit TELE-AWV Annual Wellness Visit Male Instructions 1. Advance directive discussed w ith patient advance care planning: car e instructions 2. Depression screening learning about depression 3. Chronic pain 4. Hypertensive disorder Discussion Note Completed a telephone visit with claudia fisher. Patient report he has enough meds currently and does not need any refills. Patient encouraged to wash hands frequently for 20 seconds, practice social distanci ng by stay home and maintaining physical space in public. Patient encouraged to s [facility] if he starts having continues cough, fever and sob. Patient verbalized understanding. Plan of Care Patient Instructions It was good to speak with you danitza whitman today for your Medicare Annual Wellness Visit. You have been provided some information on healthy nutrition, including a diet rich in fruits and vegetables, minimizing simple carbohydrates, salt, and saturated fats. I want to encourage regular card iovascular exercise such as walking at [place] 30 minutes daily, 5 times per week. Please remember to schedule any prevent ritu health measures that we talked about today. You have also been provided education on fall prevention and community- based lifestyle interventions to help reduc e health risks and promote healthy livin g in your Annual Wellness folder. Screening Recommendations 1. Vaccines Pneumonia: Recommended toda y Influenza: Recommended today 2. Colorectal Cancer Screening: Colonoscopy (every 10 years) Recommended today 3. Annual Prostate Screening 4. Annual Depression Sc reening 5. Annual Alcohol Screening 6. A nnual Fall Risk Screening 7. Annual Health Risk Assessment Reminders Provider Appointments Home on or around Radha Visit 30 02/09/2020 LAUREEN [facility] Lab None recorded. Referral None recorded. Procedures None recorded. Surgeries None recorded. Imaging None recorded. Medications Name Start Date acetaminophen 325 mg-codeine 30 mg capsule Take 1 capsule twice a day by oral route as needed. Medications Administered None recorded. Vitals Height Weight BMI 6 ft 245 lbs 33.2 kg/m2 Results Lab Results None recorded. Allergies Code Code System Name Reaction Severity Status Onset NKDA Problems Name Status Onset Date Source Chronic Pain Active 11/06/2019 Hypertensive Disorder Active 11/06/2019 Procedures None recorded. Vaccine List None recorded. Social History Tobacco Smoking Status Light Tobacco Smoker (1 PPW) Past Encounters 11/06/2019 Advance Directive Discussed with Patient ; Depression Screening; Chronic Pain; Hypertensive Disorder Radha Polk, TEACHER EDUCATION DIRECTOR: [address] [facility], [address], [place] [address], Ph. History of Present Illness Mini Cog Reported By: Patient Opioid Use Assessment Reported By: Patient Opioid Use Assessment:: Current Use of Opioids : Cod eine (Tylenol #3/#4) Note: I confirm that I received verbal consent from the patient for the virtual visit.
This telemedicine encounter was performed using live {{video and audio|audio only*}}.
<b>(for audio only)</b> Total time spent with patient: {{25#| }} minutes. Review of Systems Comprehensive General Adult ROS Reported By: Patient Constitutional: Constitutional: no fever, no night sweats, no significant weight gain, no significant weight loss, no exercise intolerance Eyes: Eyes: no dry eyes, no vision change, no irritation ENMT: Ears: no difficulty hearing, no ear pain. Nose: no frequent nosebleeds, no nose problems , no sinus problems. Mouth/Throat: no sore throat, no bleeding gums, no snoring, no dry mouth, no mouth ulcers, no oral abnorm alities, no teeth problems Cardiovascular: Cardiovascular: no chest savanah n, no arm pain on exertion, no shortness of breath when wal sirisha, no shortness of breath when lying down, no palpitations, no known heart murmur, no lightheadedness Respiratory: Respiratory: no cough, no wh eezing, no shortness of breath, no coughing up blood, no sleep apnea Gastrointestinal: Gastrointestinal: no abdomin al pain, no nausea, no vomiting, no constipation, normal appe tite, no diarrhea, not vomiting blood, no dyspepsia, no GERD Genitourinary: Genitourinary: no incontinen ce, no difficulty urinating, no hematuria, no increased freq uency Musculoskeletal: Musculoskeletal: no muscle a ches, no muscle weakness, no arthralgias/joint pain, no s welling in the extremities, back pain Integumentary: Skin: no abnormal mole, no j aundice, no rashes, no laceration Neurologic: Neurologic: no loss of consc iousness, no weakness, no numbness, no seizures, no di zziness, no migraines, no headaches, no tremor Psychiatric: Psych: no depression, no sle ep disturbances, feeling safe in a relationship, no alcohol abu se, no anxiety, no hallucinations, no suicidal thoughts Endocrine: Endocrine: no fatigue Hematologic/Lymphatic: Hematologic/Lymphatic no swo llen glands, no bruising, no excessive bleeding Allergic/Immunologic: Allergy/Immunologic: no runn y nose, no sinus pressure, no itching, no hives, no freque nt sneezing Physical Exam Telemedicine/Virtual Visit Reported By: Patient Constitutional: Level of Distress: NAD Psychiatric: Mental Status: active and al ert"
[2019-11-16] MEDS ORDERED: HYDROCODONE/APAP 10/325 TAB ONE (17:10)
--- NOTE | 2019-11-16 17:42 | RAD REPORT ---
EXAM DESCRIPTION: RAD - Wrist Left 3 View - 11/16/2019 5:06 pm CLINICAL HISTORY: fall, deformity Pain COMPARISON: No comparisons FINDINGS: Impacted and mildly comminuted distal radius fracture is present with moderate surrounding soft tissue swelling. Small avulsion fracture is present involving the ulnar styloid.
[2019-11-16] MEDS ORDERED: cloNIDine HCL 0.1 MG TAB ONE (19:27)
--- NOTE | 2019-11-16 20:05 | EDPHYS ---
Physician Documentation [facility] Name: Onel Mancuso Age: 59 yrs Sex: Male : 1960 Arrival Date: 11/16/2019 Time: 15:52 Bed 7 Private MD: ED Physician Marcos Hutson HPI: 11/15 16:36 This 59 yrs old Male presents to ER via Ambulatory with complaints of Wrist jmm Injury. 16:36 The patient or guardian reports injury, pain. Onset: The symptoms/episode jmm began/occurred acutely, just prior to arrival. Modifying factors: The symptoms are alleviated by nothing, the symptoms are aggravated by movement. This is a 59 year old male with a history of cirrhosis, htn, hepatitis that presents to the ED with complaints of left wrist pain beginning 5 days ago after a fall on an outstretched hand. Denies head injury. . Historical: - Allergies: 16:00 No Known Allergies; ll1 - PMHx: 16:00 Cirrhosis; Hypertension; Hepatitis; ll1 - PSHx: 16:00 abdominal surgery x 3; ll1 - Immunization history:: Last tetanus immunization: up to date. - Social history:: Smoking status: Patient reports the use of cigarette tobacco products, smokes one-half pack cigarettes per day, Patient/guardian denies using alcohol, street drugs. ROS: 16:36 Constitutional: Negative for fever, chills, and weight loss, Cardiovascular: Negative jmm for chest pain, palpitations, and edema, Respiratory: Negative for shortness of breath, cough, wheezing, and pleuritic chest pain. 16:36 MS/extremity: Positive for pain. 16:36 All other systems are negative. Exam: 16:36 Constitutional: This is a well developed, well nourished patient who is awake, alert, jmm and in no acute distress. Head/Face: atraumatic. Eyes: EOMI, no conjunctival erythema appreciated ENT: Moist Mucus Membranes Neck: Trachea midline, Supple Chest/axilla: Normal chest wall appearance and motion. Cardiovascular: Regular rate and rhythm. No edema appreciated Respiratory: Normal respirations, no respiratory distress appreciated Abdomen/GI: Non distended, soft Back: Normal ROM Skin: General appearance color normal 16:36 Musculoskeletal/extremity: swelling noted to the left wrist, full radial pulse, compartments are soft, NVI. 16:36 Skin: Appearance: Color: normal in color. 16:36 Neuro: Orientation: is normal, Mentation: is normal, Memory: is normal. 16:36 Psych: Behavior/mood is pleasant, cooperative. Vital Signs: 16:00 BP 200 / 114; Pulse 95; Resp 18; Temp 98.3; Pulse Ox 100% ; Weight 111.13 kg; Height 6 ll1 ft. 0 in. (182.88 cm); Pain 10/10; 17:40 BP 209 / 102; Pulse 80; Resp 20; Pulse Ox 100% on R/A; em 18:00 BP 213 / 102; Pulse 79; Resp 18; Pulse Ox 100% on R/A; em 16:00 Body Mass Index 33.23 (111.13 kg, 182.88 cm) ll1 MDM: 16:36 Patient medically screened. [facility] 18:19 Data reviewed: vital signs, nurses notes. Counseling: I had a detailed discussion with [facility] the patient and/or guardian regarding: the historical points, exam findings, and any diagnostic results supporting the discharge/admit diagnosis, radiology results, the need for outpatient follow up, to return to the emergency department if symptoms worsen or persist or if there are any questions or concerns that arise at home. ED course: Patient is advised to follow up with ortho for further evaluation. Patient understood and agrees with the plan of care. . 20:03 ED course: Patient eloped from the ED prior to final disposition. Patient was not jmm splinted. RN attempted to contact patient via telephone with no answer.. 11/15 16:39 Order name: Wrist Left (3 View) XRAY; Complete Time: 17:56 [facility] 11/15 17:57 Order name: Sugar Tong Forearm Splint [facility] 11/15 17:57 Order name: Sling [facility] Administered Medications: 17:07 Drug: Huxley 10 mg-325 mg 1 tabs Route: PO; em Disposition: 11/16 17:34 Co-signature as Attending Physician, Marcos Hutson MD I agree with the assessment and kdr plan of care. Disposition: 11/16/19 20:04 Patient left the facility after being seen by provider. Preliminary diagnosis is Distal Radius Fracture. - Patient left due to unknown. - Condition is Stable. Signatures: Dispatcher [employer] EDMS Marcos Hutson MD MD kdr Mickail, Joel, PA PA m Mando Holloway, RN RN Hunter Owens, RN RN jb4 Karla Owen, DAVID RN ll1 Corrections: (The following items were deleted from the chart) 11/15 18:30 18:05 Knee Right 3 View+RAD.RAD.BRZ ordered. EDMS EDMS 20:03 18:09 Splinting: Splint applied to left wrist using sugar tong. [facility] 20:06 20:04 11/16/2019 20:04 Patient left the facility after being seen by provider. jb4 Preliminary diagnosis is Distal Radius Fracture. Reason stated they are leaving due to unknown. Condition is Stable. nikita
--- NOTE | 2019-11-16 20:05 | ER ---
Nurse's Notes [facility] Name: Onel Mancuso Age: 59 yrs Sex: Male : 1960 Arrival Date: 11/16/2019 Time: 15:52 Bed 7 Private MD: Diagnosis: Distal Radius Fracture Presentation: 11/15 16:00 Chief complaint: Patient states: Hit metal equipment 5 days ago. Fell onto left wrist. ll1 Pain and swelling to left wrist since. Abrasion noted to right leg. No fever. Coronavirus screen: Proceed with normal triage. Patient denies a cough. Patient denies shortness of breath or difficulty breathing. Patient denies measured and/or subjective temperature greater than 100.4F prior to today's visit. Patient denies travel on a cruise ship or to a country the [facility] currently lists as an affected area. Patient denies contact with known and/or suspected case of COVID-19. Ebola Screen: Patient denies travel to an Ebola-affected area in the 21 days before illness onset. Initial Sepsis Screen: Does the patient meet any 2 criteria? HR > 90 bpm. No. Patient's initial sepsis screen is negative. Does the patient have a suspected source of infection? No. Patient's initial sepsis screen is negative. Risk Assessment: Do you want to hurt yourself or someone else? Patient reports no desire to harm self or others. Onset of symptoms was November 10, 2019. 16:00 Method Of Arrival: Ambulatory ll1 16:00 Acuity: DANIKA 4 ll1 Historical: - Allergies: 16:00 No Known Allergies; ll1 - PMHx: 16:00 Cirrhosis; Hypertension; Hepatitis; ll1 - PSHx: 16:00 abdominal surgery x 3; ll1 - Immunization history:: Last tetanus immunization: up to date. - Social history:: Smoking status: Patient reports the use of cigarette tobacco products, smokes one-half pack cigarettes per day, Patient/guardian denies using alcohol, street drugs. Screenin:00 Abuse screen: Denies threats or abuse. Nutritional screening: No deficits noted. em Tuberculosis screening: No symptoms or risk factors identified. Fall Risk Fall in past 12 months (25 points). No secondary diagnosis (0 pts). Assessment: 17:00 General: Appears in no apparent distress. uncomfortable, Behavior is calm, cooperative, em appropriate for age. Pain: Complains of pain in left wrist Pain currently is 10 out of 10 on a pain scale. Pain began 5 days ago. Neuro: Level of Consciousness is awake, alert, obeys commands, Oriented to person, place, time, situation, Appropriate for age. Cardiovascular: Denies chest pain, lightheadedness, palpitations, shortness of breath, Capillary refill < 3 seconds Patient's skin is warm and dry. Respiratory: Airway is patent Respiratory effort is even, unlabored, Respiratory pattern is regular, symmetrical. Derm: Skin is intact, is healthy with good turgor, Skin is pink, warm \T\ dry. Musculoskeletal: Capillary refill < 3 seconds, Range of motion: limited in left wrist. 18:00 Reassessment: Patient appears in no apparent distress at this time. Patient and/or em family updated on plan of care and expected duration. Pain level reassessed. Patient is alert, oriented x 3, equal unlabored respirations, skin warm/dry/pink. 19:35 Reassessment: PT is not in the room, unable to locate patient, provider reports seeing jb4 patient walk to the [facility], attempted to call patients phone no answer. Vital Signs: 16:00 BP 200 / 114; Pulse 95; Resp 18; Temp 98.3; Pulse Ox 100% ; Weight 111.13 kg; Height 6 ll1 ft. 0 in. (182.88 cm); Pain 10/10; 17:40 BP 209 / 102; Pulse 80; Resp 20; Pulse Ox 100% on R/A; em 18:00 BP 213 / 102; Pulse 79; Resp 18; Pulse Ox 100% on R/A; em 16:00 Body Mass Index 33.23 (111.13 kg, 182.88 cm) ll1 ED Course: 15:52 Patient arrived in ED. fj1 16:02 Triage completed. ll1 16:02 Arm band placed on. ll1 16:21 Marciano Ferreira PA is PHCP. jmm 16:21 Marcos Hutson MD is Attending Physician. jmm 16:56 Mando Holloway, RN is Primary Nurse. em 17:07 Wrist Left (3 View) XRAY In Process Unspecified. EDMS 20:04 Jarrod Roberson MD is Referral Physician. jmm Administered Medications: 17:07 Drug: Carson 10 mg-325 mg 1 tabs Route: PO; em Outcome: 20:06 Patient left the ED. jb4 Signatures: Dispatcher [employer] Marciano Kaur PA PA jmm Munoz, Edgar, RN RN Hunter Owens RN RN jb4 Yariel Harrison fj1 Karla Owen RN RN ll1 Corrections: (The following items were deleted from the chart) 17:15 17:00 Musculoskeletal: Capillary refill < 3 seconds, Range of motion: intact in all em extremities, em
[2019-11-16 20:12] VITALS: TEMP 98.3; O2SAT 100
[2019-11-16 20:15] VITALS: BP 213/102
== END 2019-11-16 20:06 | disposition left against medical advice (07) ==
LOC: ER 15:51
DX: S52.502A Unspecified fracture of the lower end of left radius, initial encounter for closed fracture (principal); W19.XXXA Unspecified fall, initial encounter; Y93.9 Activity, unspecified; Y92.9 Unspecified place or not applicable; I10 Essential (primary) hypertension; F17.210 Nicotine dependence, cigarettes, uncomplicated
CPT/HCPCS: 99283

== ENCOUNTER 2020-07-18 17:43 | Observation (INO) | payer OTHER ==
[2020-07-18 18:44] LABS: Protime INR 1.41
[2020-07-18] MEDS ORDERED: MORPHINE 4 MG/ML SYR ONE (18:46)
[2020-07-18 19:04] LABS: ALT/SGPT 40 U/L (12-78); AST/SGOT 164 U/L (15-37); Albumin 2.4 g/dL (3.4-5.0); Alkaline Phosphatase 207 U/L (45-117); BUN Blood Urea Nitrogen 12 mg/dL (7-18); Bicarbonate 27 mmol/L (21-32); Bilirubin Direct 1.9 mg/dL (0-0.2); Bilirubin Total 3.6 mg/dL (0.2-1.0); Glucose Level 113 mg/dL (74-106); Lipase 132 U/L (73-393); Magnesium 1.9 mg/dL (1.8-2.4); NT PRO-BNP 100 pg/mL (<125); Potassium 4.3 mmol/L (3.5-5.1); Protein, Total 7.7 g/dL (6.4-8.2); Sodium Level 143 mmol/L (136-145); Troponin (Emerg Dept Use Only) < 0.02 ng/mL (0.0-0.045)
--- NOTE | 2020-07-18 19:04 | RAD REPORT ---
EXAM DESCRIPTION: RAD - Chest Single View - 07/18/2020 6:55 pm CLINICAL HISTORY: ABDOMINAL DISTENTION, shortness of breath COMPARISON: February 2019 TECHNIQUE: AP portable chest image was obtained 07/18/2020 6:55 pm . FINDINGS: Lung volumes are low. This accentuates baseline interstitial pattern. No peripheral mass o r consolidation. No significant failure or volume overload. Heart and vasculature are normal. No elena urable pleural effusion and no pneumothorax. No acute bony abnormality seen. Old rib trauma noted on the left. No acute aortic findings suspected. IMPRESSION: No acute cardiopulmonary process.
[2020-07-18 19:10] LABS: Absolute Lymphocytes (CBC) 0.6 K/uL (0.7-4.9); Basophils % 0.8 % (0-1.3); Lymphocytes % 17.7 % (15.3-44.8); RBC Red Blood Cell Count 5.54 M/uL (4.33-5.43)
--- NOTE | 2020-07-18 19:48 | RAD REPORT ---
EXAM DESCRIPTION: CT - Abdomen Pelvis W Contrast - 07/18/2020 7:32 pm CLINICAL HISTORY: Abd pain;Abdominal distention COMPARISON: Abdomen Pelvis W Contrast dated 08/15/2018 TECHNIQUE: Biphasic, helical CT imaging of the abdomen and pelvis was performed following 100 ml non -ionic IV contrast. No oral contrast administered. All CT scans are performed using dose optimization technique as appropriate and may include automated exposure control or mA/KV adjustment according to patient size. FINDINGS: No suspicious findings in the lung bases. No cardiomegaly or pericardial effusion. Hepatomegaly is present primarily involving the left lobe and caudate lobe. There is nodularity throu ghout the liver capsule contour. Large geographic areas of heterogeneity are present in the hepatic p arenchyma. In the setting of advanced cirrhosis, heterogeneity can be secondary to scarring and varia bility in severity of disease. However, findings raise concern for hepatocellular carcinoma. Heteroge neity is much more pronounced than seen 2019. No portal vein thrombus. No gallbladder or biliary tree acute finding. Splenomegaly is present to 18 cm. No focal splenic lesion. No pancreatic or peripancreatic acute find ing. Symmetric renal function is seen with no hydronephrosis or suspicious renal mass. No pyelonephritis o r acute parenchymal process. No bladder abnormalities. No adrenal abnormalities. No gastric dilatation or gastric wall thickening. No dilated large or small bowel loops. Patient has a mobile cecum configuration. Acute appendicitis is not suspected. No free air or pneumatosis. Mild to moderate ascites present. This is only of limited drainable abili ty. Congestion is seen in the omentum. There is an overall congestion or edema to the mesenteric fat. Numerous small mesenteric lymph nodes are present. No hernia, mass or bulky lymphadenopathy. No suspicious bony findings. IMPRESSION: Advanced cirrhosis of the liver with hepatomegaly and interval enlargement since 2019. S plenomegaly is present without splenic lesion. Significant heterogeneity of the hepatic parenchyma has developed or progressed since 2019. Hepatocel lular carcinoma is certainly a consideration. Small to moderate amount of ascites present with congestion or edema throughout the peritoneal fat. S mall mesenteric lymph nodes are present. No bowel obstruction, free air or emergent finding identifiable.
[2020-07-18] MEDS ORDERED: FUROSEMIDE 40 MG/4 ML VIAL ONE (20:10)
--- NOTE | 2020-07-18 20:18 | EDPHYS ---
Physician Documentation [facility] Name: Onel Mancuso Age: 60 yrs Sex: Male : 1960 Arrival Date: 07/18/2020 Time: 17:47 Bed 24 Private MD: ED Physician Marcos Hutson HPI: 07/18 18:20 This 60 yrs old Male presents to ER via Ambulatory with complaints of cp Abdominal Swelling, Abdominal Pain, Shortness Of Breath. 18:20 The patient presents with abdominal distention that is diffuse. cp 18:20 Onset: The symptoms/episode began/occurred gradually, and became worse 1 week(s) ago. cp The symptoms do not radiate. Associated signs and symptoms: Pertinent positives: shortness of breath, Pertinent negatives: blood in stools, chest pain, diarrhea, dysuria, fever. The symptoms are described as pressure. Patient reports history of cirrhosis with ascites and having paracentesis performed about 1 year ago. Historical: - Allergies: 18:01 No Known Allergies; aa5 - PMHx: 18:01 Cirrhosis; Hepatitis; Hypertension; aa5 - PSHx: 18:01 abdominal surgery x 3; right femur; back; neck; foot; Bowel resection; aa5 - Immunization history:: Adult Immunizations unknown. - Social history:: Smoking status: Patient reports the use of cigarette tobacco products, smokes one-half pack cigarettes per day. ROS: 18:23 Constitutional: Negative for body aches, chills, fever, poor PO intake. cp 18:23 Eyes: Negative for injury, pain, redness, and discharge. cp 18:23 ENT: Negative for ear pain, sore throat, difficulty swallowing, difficulty handling secretions. 18:23 Cardiovascular: Negative for chest pain, edema, palpitations. 18:23 Respiratory: Positive for shortness of breath, on exertion. Negative for wheezing. 18:23 Abdomen/GI: Positive for abdominal pain, abdominal distension, Negative for vomiting, diarrhea, constipation, black/tarry stool, rectal bleeding. 18:23 Back: Negative for pain at rest, pain with movement. 18:23 : Negative for urinary symptoms, testicular pain 18:23 Neuro: Negative for altered mental status, dizziness, headache, syncope, weakness. 18:23 All other systems are negative. Exam: 18:25 ECG was reviewed by the Attending Physician. cp 18:30 Constitutional: The patient appears in no acute distress, alert, awake, cp non-diaphoretic, non-toxic, well developed, well nourished, uncomfortable. 18:30 Head/Face: Normocephalic, atraumatic. cp 18:30 Eyes: Periorbital structures: appear normal, Conjunctiva: normal, no exudate, no injection, Sclera: no appreciated abnormality, Lids and lashes: appear normal, bilaterally. 18:30 ENT: External ear(s): are unremarkable, Nose: is normal, Mouth: Lips: moist, Oral mucosa: pink and intact, moist, Posterior pharynx: Airway: no evidence of obstruction, patent. 18:30 Neck: ROM/movement: is normal, is supple, without pain, no range of motions limitations. 18:30 Chest/axilla: Inspection: normal, Palpation: is normal, no crepitus, no tenderness. 18:30 Cardiovascular: Rate: normal, Rhythm: regular, JVD: is not appreciated. 18:30 Respiratory: the patient does not display signs of respiratory distress, Respirations: labored breathing, that is mild, intercostal retractions, are absent, Breath sounds: decreased breath sounds, that are mild, diffuse, stridor, is not appreciated, wheezing: is not appreciated. 18:30 Abdomen/GI: Inspection: distension, that is moderate, scar(s), midline lower abdomen, Bowel sounds: active, all quadrants, Palpation: soft, in all quadrants, moderate abdominal tenderness, in all quadrants, rebound tenderness, is not appreciated, voluntary guarding, is not appreciated, involuntary guarding, is not appreciated. 18:30 Back: pain, is absent, ROM is normal. 18:30 Skin: cellulitis, is not appreciated, no rash present. 18:30 Neuro: Orientation: to person, place \T\ time. Mentation: is normal, Cerebellar function: is grossly normal, Motor: moves all fours, strength is normal, Sensation: is normal. Vital Signs: 17:50 BP 197 / 91; Pulse 100; Resp 26 S; Temp 97.7(O); Pulse Ox 98% on R/A; aa5 18:33 BP 143 / 94; Pulse 93; Resp 24; Pulse Ox 95% on R/A; zb 19:30 BP 181 / 85; Pulse 97; Resp 26; Pulse Ox 96% on R/A; zb 19:55 BP 180 / 99; Pulse 99; Resp 18; Pulse Ox 97% on R/A; zb 20:55 BP 185 / 93; Pulse 97; Resp 20; Pulse Ox 94% on R/A; zb 21:00 BP 189 / 92; Pulse 95; Resp 20; Pulse Ox 95% on R/A; zb 22:00 BP 168 / 111; Pulse 92; Resp 22; Pulse Ox 96% on R/A; zb MDM: 18:05 Patient medically screened. cp 18:30 Differential diagnosis: bowel obstruction, diverticulitis, non-specific abd pain, cp pancreatitis, Ureterolithiasis, urinary tract infection. 20:16 Physician consultation: Juany Kraus MD was called at 20:16, was contacted at 20:16, regarding admission, to the telemetry unit. patient's condition, and will see patient in ED, shortly. 20:20 Data reviewed: vital signs, nurses notes, lab test result(s), EKG, radiologic studies, cp CT scan, plain films, I have discussed the patient's presentation/case with the attending Emergency Department Physician; and as a result, I will admit patient. 20:20 Test interpretation: by ED physician or midlevel provider: ECG, plain radiologic cp studies. Counseling: I had a detailed discussion with the patient and/or guardian regarding: the historical points, exam findings, and any diagnostic results supporting the discharge/admit diagnosis, lab results, radiology results, the need for further work-up and treatment in the hospital. 07/18 18:13 Order name: Basic Metabolic Panel cp 07/18 18:13 Order name: CBC with Diff cp 07/18 18:13 Order name: LFT's cp 07/18 18:13 Order name: Magnesium cp 07/18 18:13 Order name: NT PRO-BNP cp 07/18 18:13 Order name: PT-INR; Complete Time: 19:12 cp 07/18 18:13 Order name: Troponin (emerg Dept Use Only); Complete Time: 19:12 cp 07/18 18:13 Order name: AMMONIA; Complete Time: 19:12 cp 07/18 18:13 Order name: Lipase; Complete Time: 19:12 cp 07/18 18:14 Order name: Basic Metabolic Panel; Complete Time: 19:12 EDWA 07/18 19:12 Interpretation: Normal except: CL 109; GLUC 113; GFR 86. cp 07/18 18:14 Order name: CBC with Automated Diff EDWA 07/18 19:27 Interpretation: Normal except: WBC 3.10; RBC 5.54; MCV 81.3; MCH 26.1; PLT 126; RDW cp 20.5; EOSINOPHIL % 6.4; LYMA 0.6. 07/18 18:14 Order name: Liver (Hepatic) Function; Complete Time: 19:12 EDWA 07/18 19:52 Interpretation: Normal except: AST 164; ALK 207; BILIT 3.6; BILID 1.9; ALB 2.4; GLOB cp 5.3; A/G 0.5. 07/18 18:14 Order name: Magnesium; Complete Time: 19:12 [facility] 07/18 18:14 Order name: NT PRO-BNP; Complete Time: 19:12 [facility] 07/18 18:13 Order name: XRAY Chest (1 view); Complete Time: 19:12 07/18 19:12 Interpretation: Report review. 07/18 18:13 Order name: EKG; Complete Time: 18:14 cp 07/18 19:14 Order name: CT Abd/Pelvis - IV Contrast Only; Complete Time: 19:50 cp 07/18 21:24 Order name: CBC Smear Scan [facility] 07/18 21:42 Order name: SARS-COV-2 RT PCR EDWA 07/18 21:53 Order name: NPO EDWA 07/18 21:53 Order name: Protime (+INR) EDWA 07/18 21:53 Order name: Comprehensive Metabolic Panel [facility] 07/18 21:53 Order name: Comprehensive Metabolic Panel [facility] 07/18 21:53 Order name: CONS Pharmacy Consult EDWA 07/18 21:53 Order name: Full Liquid [facility]WA 07/18 21:53 Order name: PTT, Activated Partial Thromb EDWA 07/18 21:54 Order name: Paracentesis Proc Guidance [facility] 07/18 18:13 Order name: Cardiac monitoring; Complete Time: 18:32 cp 07/18 18:13 Order name: EKG - Nurse/Tech; Complete Time: 18:28 cp 07/18 18:13 Order name: IV Saline Lock; Complete Time: 18:34 cp 07/18 18:13 Order name: Labs collected and sent; Complete Time: 18:34 cp 07/18 18:13 Order name: O2 Per Protocol; Complete Time: 18:28 cp 07/18 18:13 Order name: O2 Sat Monitoring; Complete Time: 18:28 cp EC:25 Rate is 94 beats/min. Rhythm is regular. MA interval is normal. QRS interval is cp prolonged at 108 msec. QT interval is normal. T waves are Inverted in lead aVR. Interpreted by me. Reviewed by me. Administered Medications: 18:32 Drug: morphine 4 mg Route: IVP; Site: right antecubital; zb 19:00 Follow up: Response: No adverse reaction; Pain is decreased zb 19:56 Drug: Lasix 40 mg Route: IVP; Site: right antecubital; zb 22:54 Follow up: Response: No adverse reaction zb Disposition: 07/19 06:48 Co-signature as Attending Physician, Marcos Hutson MD I agree with the assessment and kdr plan of care. Disposition: 07/18/20 20:17 Hospitalization ordered by Juany Kraus for Observation. Preliminary diagnosis are Alcoholic cirrhosis of liver with ascites, Dyspnea, unspecified. - Bed requested for Telemetry/MedSurg (observation). - Status is Observation. zb - Condition is Stable. - Problem is chronic. - Symptoms have improved. Signatures: Dispatcher [employer] [facility] Erin Hackett RN RN dw Rittger, Kevin, MD MD [facility] Wanda Teixeira RN RN aa5 Chuy Almaraz PA PA cp Brown, Zipporah, RN RN zb Corrections: (The following items were deleted from the chart) 07/18 19:52 19:52 Normal except: AST 164; ALK 207; BILIT 3.6; BILID 1.9; ALB 2.4; GLOB 5.3. cp cp 21:01 19:37 CORONAVIRUS+MR.LAB.BRZ ordered. EDWA EDMS 22:14 20:17 Hospitalization Ordered by Juany Kraus MD for Observation. Preliminary dw diagnosis is Alcoholic cirrhosis of liver with ascites; Dyspnea, unspecified. Bed requested for Telemetry/MedSurg (observation). Status is Observation. Condition is Stable. Problem is chronic. Symptoms have improved. cp 23:12 22:14 07/18/2020 20:17 Hospitalization Ordered by Juany Kraus MD for Observation. zb Preliminary diagnosis is Alcoholic cirrhosis of liver with ascites; Dyspnea, unspecified. Bed requested for Telemetry/MedSurg (observation). Status is Observation. Condition is Stable. Problem is chronic. Symptoms have improved. dw
--- NOTE | 2020-07-18 20:18 | ER ---
Nurse's Notes [facility] Name: Onel Mancuso Age: 60 yrs Sex: Male : 1960 Arrival Date: 07/18/2020 Time: 17:47 Bed 24 Private MD: Diagnosis: Alcoholic cirrhosis of liver with ascites;Dyspnea, unspecified Presentation: 07/18 17:50 Chief complaint: Patient states: abdominal swelling and pain. Pt also reports SOB, aa5 reports hx of cirrhosis. 17:50 Coronavirus screen: shortness of breath. Ebola Screen: No symptoms or risks identified aa5 at this time. Initial Sepsis Screen: Does the patient meet any 2 criteria? RR > 20 per min. HR > 90 bpm. Yes Does the patient have a suspected source of infection? No. Patient's initial sepsis screen is negative. Risk Assessment: Do you want to hurt yourself or someone else? Patient reports no desire to harm self or others. Onset of symptoms was 2020. 17:50 Acuity: DANIKA 3 aa5 17:50 Method Of Arrival: Ambulatory aa5 Triage Assessment: 22:53 General: Behavior is calm. zb Historical: - Allergies: 18:01 No Known Allergies; aa5 - PMHx: 18:01 Cirrhosis; Hepatitis; Hypertension; aa5 - PSHx: 18:01 abdominal surgery x 3; right femur; back; neck; foot; Bowel resection; aa5 - Immunization history:: Adult Immunizations unknown. - Social history:: Smoking status: Patient reports the use of cigarette tobacco products, smokes one-half pack cigarettes per day. Screenin:10 Abuse screen: Denies threats or abuse. Nutritional screening: No deficits noted. zb Tuberculosis screening: No symptoms or risk factors identified. Fall Risk No fall in past 12 months (0 pts). Secondary diagnosis (15 points) impaired mobility, IV access (20 points). Ambulatory Aid- None/Bed Rest/Nurse Assist (0 pts). Gait- Normal/Bed Rest/Wheelchair (0 pts) Mental Status- Oriented to own ability (0 pts). Total Bower Fall Scale indicates Low Risk Score (25-44 pts). Fall prevention measures have been instituted. Side Rails Up X 2 Placed close to Nursing Station Frequent Obs/Assesments occuring As available Patient and Family Educated on Fall Prevention Program and strategies. Assessment: 18:02 General: Appears in no apparent distress. uncomfortable. Pain: Complains of pain in zb abdomen and neck Pain does not radiate. Pain currently is 10 out of 10 on a pain scale. Quality of pain is described as heavy, pressure, Pain began 2 months ago Is continuous, Noted to be quiet/stoic, Also complains of decreased appetite. Neuro: Level of Consciousness is awake, alert, obeys commands, Oriented to person, place, time, situation, Oral Pathologist are equal bilaterally Moves all extremities. Speech is normal, Facial symmetry appears normal, Pupils are PERRLA. Cardiovascular: Reports shortness of breath, Denies chest pain, nausea, vomiting, Heart tones S1 S2 present Patient's skin is warm and dry. Edema is 1+ to right midcalf and right ankle is 2+ to left midcalf and left ankle. Respiratory: Airway is patent Respiratory effort is even, unlabored, Respiratory pattern is tachypnea Breath sounds are diminished in left posterior lower lobe, right posterior middle lobe and right posterior lower lobe. GI: Abdomen is round distended, noted to have ascites, mid-line healed scar noted. Last BM was July 17, 2020. Bowel sounds present X 4 quads. Abdomen is tender to palpation X 4 quads. Abd is rigid X 4 quads. : No signs and/or symptoms were reported regarding the genitourinary system. EENT: No signs and/or symptoms were reported regarding the EENT system. Derm: Skin is thin, with poor turgor Skin is dry, Skin is normal, Skin temperature is warm. Musculoskeletal: Denies. 19:00 Reassessment: Patient appears in no apparent distress at this time. Patient and/or zb family updated on plan of care and expected duration. Pain level reassessed. Patient is alert, oriented x 3, equal unlabored respirations, skin warm/dry/pink. Patient denies pain at this time. Patient states symptoms have improved. 19:38 Reassessment: pt returned from CT. no changes at this time. zb 19:40 Reassessment: pt covid swabbed. zb 19:46 Reassessment: Patient appears in no apparent distress at this time. Patient and/or zb family updated on plan of care and expected duration. Pain level reassessed. Patient is alert, oriented x 3, equal unlabored respirations, skin warm/dry/pink. pain decreased to 4/10 per patient. 19:54 Reassessment: notified ECP of patient blood pressure. medication ordered. zb 20:55 Reassessment: Patient appears in no apparent distress at this time. Patient and/or zb family updated on plan of care and expected duration. Pain level reassessed. Patient is alert, oriented x 3, equal unlabored respirations, skin warm/dry/pink. pt currently resting at this time. appears to be asleep. light dimmed. 21:52 Reassessment: Patient appears in no apparent distress at this time. Patient and/or zb family updated on plan of care and expected duration. Pain level reassessed. Patient is alert, oriented x 3, equal unlabored respirations, skin warm/dry/pink. pt appears to be resting at this time. Patient denies pain at this time. Patient states feeling better. Patient states symptoms have improved. 22:30 Reassessment: notified ECP of patient blood pressure. zb 22:53 Reassessment: notified pt that he had a room upstairs. zb Vital Signs: 17:50 BP 197 / 91; Pulse 100; Resp 26 S; Temp 97.7(O); Pulse Ox 98% on R/A; aa5 18:33 BP 143 / 94; Pulse 93; Resp 24; Pulse Ox 95% on R/A; zb 19:30 BP 181 / 85; Pulse 97; Resp 26; Pulse Ox 96% on R/A; zb 19:55 BP 180 / 99; Pulse 99; Resp 18; Pulse Ox 97% on R/A; zb 20:55 BP 185 / 93; Pulse 97; Resp 20; Pulse Ox 94% on R/A; zb 21:00 BP 189 / 92; Pulse 95; Resp 20; Pulse Ox 95% on R/A; zb 22:00 BP 168 / 111; Pulse 92; Resp 22; Pulse Ox 96% on R/A; zb ED Course: 17:47 Patient arrived in ED. as 17:50 Arm band placed on Patient placed in an exam room, on a stretcher. aa5 17:51 Chuy Almaraz PA is PHCP. cp 17:51 Marcos Hutson MD is Attending Physician. cp 17:56 Brown, Brooke, RN is Primary Nurse. zb 18:00 Triage completed. aa5 18:11 Patient has correct armband on for positive identification. Placed in gown. Bed in low zb position. Call light in reach. Side rails up X 1. monitor car operator on. Pulse ox on. NIBP on. Door closed. Noise minimized. 18:34 XRAY Chest (1 view) Sent. zb 18:36 Inserted saline lock: 20 gauge in right antecubital area, using aseptic technique. dh4 Blood collected. 18:52 XRAY Chest (1 view) In Process Unspecified. EDMS 19:32 CT Abd/Pelvis - IV Contrast Only In Process Unspecified. EDMS 19:46 COVID swab sent to lab. zb 20:16 Juany Kraus MD is Hospitalizing Provider. cp 22:53 No provider procedures requiring assistance completed. Patient admitted, IV remains in zb place. Administered Medications: 18:32 Drug: morphine 4 mg Route: IVP; Site: right antecubital; zb 19:00 Follow up: Response: No adverse reaction; Pain is decreased zb 19:56 Drug: Lasix 40 mg Route: IVP; Site: right antecubital; zb 22:54 Follow up: Response: No adverse reaction zb Outcome: 20:17 Decision to Hospitalize by Provider. cp 22:54 Admitted to Med/surg accompanied by tech, via wheelchair, room 218, with chart, Report zb called to DAVID Joy 22:54 Condition: stable 22:54 Instructed on the need for admit, Demonstrated understanding of instructions. 23:12 Patient left the ED. zb Signatures: Dispatcher [employer] Beba James Audri, RN RN aa5 Chuy Almaraz PA PA cp Huhn, Donald dh4 Brooke Fontenot RN RN zb Corrections: (The following items were deleted from the chart) 19:48 19:30 Pulse 97bpm; Resp 26bpm; Pulse Ox 96% RA; zb zb 22:35 22:00 BP 168 / 11; Pulse 92bpm; Resp 22bpm; Pulse Ox 96% RA; zb zb
[2020-07-18 21:24] LABS: Anisocytosis 1+; Blood Morphology Comment NOTED (NOT SEEN); Platelet Estimate DECR; White Blood Cell Scan OK (OK)
[2020-07-18] MEDS ORDERED: ALBUTEROL 2.5 MG/3 ML NEB SOL NEB PRN (21:47)
[2020-07-18] MEDS ORDERED: ONDANSETRON 4 MG/2 ML VIAL IV PRN (21:47)
[2020-07-18] MEDS ORDERED: HYDRALAZINE HCL 20 MG/ML VIAL IV PRN (21:51)
[2020-07-18] MEDS ORDERED: Oxycodone HCl/Acetaminophen 1 TAB TAB PO PRN (21:51)
--- NOTE | 2020-07-18 22:01 | P.HP ---
Certification for Inpatient With expected LOS: >2 Midnights Patient will require the following post-hospital care: None Practitioner: I am a practitioner with admitting privileges, knowledge of patient current condition, hospital course, and medical plan of care. Services: Services provided to patient in accordance with Admission requirements found in Title 42 Section 412.3 of the Code of Federal Regulations Patient History Date of Service: 07/18/20 Reason for admission: Abdominal pain History of Present Illness: 60-year-old male with past medical history of chronic alcoholism, Hep C, liver cirrhosis, status post intra-abdominal surgery 2 years ago unsure of etiology or reason procedure was done, known liver cirrhosis with recurrent ascites status post during procedure 2 years ago presented now because of recurrent abdominal distention and new onset abdominal pain since the last 1 week. He states pain as being intermittent pain gradually recurrent. Pain is more generalized. He denies any radiation. He describes pain as multiple on worse with activity. He denies any nausea or vomiting. He denies any diarrhea. He states he feels his pain is use to his abdominal distension. He is requesting [place]. He states he has a history of high blood pressure but he does not take any medicine. He had a CT scan done on arrival in the ED with finding of heterogeneous CT of the liver consistent with liver cirrhosis of advanced nature, small to moderate ascites, worrisome pattern for hepatocellular cancer considered. Patient is be admitted for ascites drainage and for persistent abdominal pain Allergies No Known Allergies Allergy (Unverified 08/15/18 22:02) Home medications list reviewed: No (none ) - Past Medical/Surgical History Has patient received pneumonia vaccine in the past: No Diabetic: No -: Hep C -: Liver cirrhosis -: small bowel resection -: liver biopsy -: paracentesis Review of Systems 10-point ROS is otherwise unremarkable Physical Examination - Physical Exam General: Alert, In no apparent distress, Oriented x3 HEENT: Atraumatic, Normocephalic, PERRLA Neck: Supple, 2+ carotid pulse no bruit, JVD not distended Respiratory: Clear to auscultation bilaterally, Normal air movement Cardiovascular: No edema, Normal pulses, Regular rate/rhythm, Normal S1 S2 Capillary refill: <2 Seconds Gastrointestinal: No masses, Distended, Hepatosplenomegaly, Tenderness Musculoskeletal: No clubbing, No swelling Integumentary: No rashes Neurological: Normal gait, Normal speech, Normal strength at 5/5 x4 extr - Studies Laboratory Data (last 24 hrs) 07/18/20 18:33: PT 16.3 H, INR 1.41 07/18/20 18:33: WBC 3.10 L, Hgb 14.4, Hct 45.0, Plt Count 126 L 07/18/20 18:33: Sodium 143, Potassium 4.3, BUN 12, Creatinine 0.90, Glucose 113 H, Magnesium 1.9, Total Bilirubin 3.6 H, AST 164 H, ALT 40, Alkaline Phosphatase 207 H, Lipase 132 Imagings Data: : CT abdomen - Advanced cirrhosis of the liver with hepatomegaly and interval enlargement since 2019. Splenomegaly is present without splenic lesion. Assessment and Plan - Problems (Diagnosis) (1) Hepatic cirrhosis Current Visit: Yes Status: Acute (2) HTN (hypertension) Current Visit: Yes Status: Acute (3) Ascites Current Visit: Yes Status: Acute (4) Hep C w/o coma, chronic Current Visit: Yes Status: Acute - Plan # liver cirrhosis with ascites-will consult IR for paracentesis in a.m. Keep NPO midnight Start clinic with Elevated ammonia noted, we start lactulose b.i.d. 2 pain control with p.r.n. morphine May need liver biopsy given possibility of hepatitis C induced hepatocellular carcinoma Hypertension-need for blood pressure control discuss We start low-dose propanolol Hyper [id number] DVT prophylaxis subcutaneous heparin next NS the advanced directive-full code Discharge Plan: Home - Advance Directives Does patient have a Living Will: No Does patient have a Durable POA for Healthcare: No Physician Review: Patient Assessed, Agree with Above Assessment and Plan Critical Care: No Time Spent Managing Pts Care (In Minutes): 60
[2020-07-18] MEDS: PROPRANOLOL HCL 10 MG TAB PO SCH (23:39)
[2020-07-18] MEDS: LACTULOSE 20 GM/30 ML UCUP PO SCH (23:40)
[2020-07-18] MEDS: MORPHINE 2 MG/ML SYR IV PRN (23:41)
[2020-07-18 23:48] LABS: Protime INR 1.3
[2020-07-19 00:22] VITALS: BMI 31.8
[2020-07-19 05:33] LABS: ALT/SGPT 35 U/L (12-78); AST/SGOT 149 U/L (15-37); Albumin 2.2 g/dL (3.4-5.0); Alkaline Phosphatase 189 U/L (45-117); BUN Blood Urea Nitrogen 14 mg/dL (7-18); Bicarbonate 28 mmol/L (21-32); Bilirubin Total 3.6 mg/dL (0.2-1.0); Glucose Level 84 mg/dL (74-106); Potassium 4.2 mmol/L (3.5-5.1); Protein, Total 7.1 g/dL (6.4-8.2); Sodium Level 142 mmol/L (136-145)
[2020-07-19] MEDS: LACTULOSE 20 GM/30 ML UCUP PO SCH (09:00)
[2020-07-19] MEDS ORDERED: INFLUENZA VACCINE (for 3y+) 0.5 ML DOSE IMVAC ONE (09:00)
[2020-07-19] MEDS: PROPRANOLOL HCL 10 MG TAB PO SCH (09:00)
[2020-07-19] MEDS ORDERED: NICOTINE 21 MG/PAT TD SCH (09:00)
[2020-07-19] MEDS ORDERED: FUROSEMIDE 40 MG TABLET PO SCH (09:00)
[2020-07-19] MEDS ORDERED: HEPARIN 5000 UNIT/ML 1 ML VIAL SQ SCH (09:00)
[2020-07-19] MEDS: MORPHINE 2 MG/ML SYR IV PRN (09:33)
[2020-07-19] MEDS ORDERED: HYDROMORPHONE HCL 0.5 MG/0.5 ML INJ IV PRN (10:10)
[2020-07-19 10:35] VITALS: O2SAT 95
[2020-07-19 12:54] VITALS: BP 148/79; TEMP 99.7
--- NOTE | 2020-07-19 12:54 | RAD REPORT ---
EXAM DESCRIPTION: US - Abdomen Exam Limited - 07/19/2020 9:48 am CLINICAL HISTORY: Ascites COMPARISON: July 18, 2020 cat scan FINDINGS: A small amount of ascites is present within the abdomen pelvis. IMPRESSION: Small amount of ascites
--- NOTE | 2020-07-19 12:58 | P.DS ---
Admission Date: 07/18/20 Discharge Date: 07/19/20 Disposition: ROUTINE DISCHARGE Discharge Condition: FAIR Reason for Admission: Abdominal pain - Problems (1) Ascites Status: Acute (2) HTN (hypertension) Status: Acute (3) Hep C w/o coma, chronic Status: Acute (4) Hepatic cirrhosis Status: Acute Brief History of Present Illness: 60-year-old gentleman with a history of liver cirrhosis with recurrent ascites, history of hepatitis-C, chronic alcohol presented to the emergency department with a complaint of abdominal pain. Patient failed his abdominal pain is due to abdominal distension. CT scan of the abdomen and pelvis done in the ED demonstrated large areas of heterogeneous liver with a concern for hepatocellular carcinoma and small to moderate amount of ascites. Patient was placed under observation for an attempt at paracentesis. Hospital Course: Patient placed under observation on the medical floor. U.S. guided paracentesis was ordered. Patient was evaluated by radiology, had an abdomen ultrasound done which showed only small amount of ascites. Radiologist determined not enough ascites to tap. Patient informed he needs to follow with his predatory animal exterminator for arrangement for liver biopsy because of the concern for hepatocellular carcinoma. He voiced understanding and agreed to follow with the recommendation. Patient placed on Lasix and Aldactone. He is also placed on propanolol. His ammonia level was within normal limit. Patient deemed clinically stable for discharge. Vital Signs/Physical Exam: Temp Pulse Resp BP Pulse Ox 99.7 F 74 18 148/79 H 97 07/19/20 12:00 07/19/20 12:00 07/19/20 12:00 07/19/20 12:00 07/19/20 12:00 General: Alert, In no apparent distress, Oriented x3 Neck: Supple, JVD not distended Respiratory: Clear to auscultation bilaterally, Normal air movement Cardiovascular: Regular rate/rhythm, Normal S1 S2, Edema (Bilateral lower extremities) Gastrointestinal: Soft and benign, No tenderness, Distended (Moderate) Musculoskeletal: No swelling, No tenderness Integumentary: No rashes Neurological: Normal speech, Normal strength at 5/5 x4 extr, Cranial nerves 3-12 intact Laboratory Data at Discharge: WBC 3.10 K/uL (4.3-10.9) L 07/18/20 18:33 Hgb 14.4 g/dL (13.6-17.9) 07/18/20 18:33 Hct 45.0 % (39.6-49.0) 07/18/20 18:33 Plt Count 126 K/uL (152-406) L 07/18/20 18:33 PT 15.0 SECONDS (9.5-12.5) H 07/18/20 23:33 INR 1.30 07/18/20 23:33 APTT 30.2 SECONDS (24.3-36.9) 07/18/20 23:33 Sodium 142 mmol/L (136-145) 07/19/20 05:05 Potassium 4.2 mmol/L (3.5-5.1) 07/19/20 05:05 BUN 14 mg/dL (7-18) 07/19/20 05:05 Creatinine 0.84 mg/dL (0.55-1.3) 07/19/20 05:05 Glucose 84 mg/dL (74-106) 07/19/20 05:05 Magnesium 1.9 mg/dL (1.8-2.4) 07/18/20 18:33 Total Bilirubin 3.6 mg/dL (0.2-1.0) H 07/19/20 05:05 AST 149 U/L (15-37) H 07/19/20 05:05 ALT 35 U/L (12-78) 07/19/20 05:05 Alkaline Phosphatase 189 U/L (45-117) H 07/19/20 05:05 Lipase 132 U/L (73-393) 07/18/20 18:33 Home Medications: Furosemide [Lasix*] 40 mg PO DAILY #30 tab 07/19/20 Lactulose [Cephulac*] 30 ml PO BID #473 ml 07/19/20 Propranolol [Inderal*] 20 mg PO BID #60 tab 07/19/20 Spironolactone [Aldactone] 50 mg PO DAILY #30 tablet 07/19/20 New Medications: Spironolactone [Aldactone] 50 mg PO DAILY #30 tablet Lactulose [Cephulac*] 30 ml PO BID #473 ml Propranolol [Inderal*] 20 mg PO BID #60 tab Furosemide [Lasix*] 40 mg PO DAILY #30 tab Physician Discharge Instructions: You will need to follow up with the predatory animal exterminator in [place] to evaluate you for liver biopsy. Diet: Regular Activity: Ad mady Followup: NONE,NONE [Primary Care Provider] - 1-2 Weeks
--- NOTE | 2020-07-21 07:58 | EKG ---
Test Date: 2020-07-18 Test Time: 18:19:47 Drain Technician: CAROLINE MEASUREMENT RESULTS: Intervals: Rate: 94 SC: 152 QRSD: 108 QT: 390 QTc: 487 [place]: P: 66 SC: 152 QRS: -27 T: 50 INTERPRETIVE STATEMENTS: Normal sinus rhythm Septal infarct, age undetermined Abnormal ECG Compared to ECG 03/06/2019 15:18:08 Myocardial infarct finding now present Left-axis deviation no longer present Electronically Signed On 07-21-20 07:53:53 CABLE TESTERS HELPER by Luis Sepulveda
== END 2020-07-19 13:56 | disposition home or self-care (01) ==
LOC: ER 17:43 → INTOOBSV 21:50 → ERHOLD 21:50 → 2ND 22:57
PROVIDERS: ADMIT Internal Medicine; ATTEND Internal Medicine
DX: R10.9 Unspecified abdominal pain (principal); K74.60 Unspecified cirrhosis of liver; B18.2 Chronic viral hepatitis C; R18.8 Other ascites; I10 Essential (primary) hypertension; F17.210 Nicotine dependence, cigarettes, uncomplicated; Z20.822 Contact with and (suspected) exposure to COVID-19; R94.31 Abnormal electrocardiogram [ECG] [EKG]; F10.20 Alcohol dependence, uncomplicated
CPT/HCPCS: 93005; 85025; 80048; 36415 ×2; 82140 ×2; 83735; 85610 ×2; 80076; 85730; 84484; 83690; 80053; 83880; 74177; 71045; 76705; 96375; 96374; 99285; U0003; Q9967; J1940; J2270 ×2; G0378; J1644

== ENCOUNTER 2020-07-29 21:58 | Emergency (ER) | payer OTHER ==
--- OUTSIDE RECORDS SUMMARY | 2020-07-29 22:02 | XMS REPORT | Clinical Summary ---
:1960 Author Organization [facility] Address [address] [place] [id number] Care Team Providers Name Role Phone Mike Klein Primary Care Provider Allergies No Known Allergies Medications Medication Sig Dispensed Refills Start Date End Date Status rifAXIMin 550 mg Tab Take 550 mg by mouth 0 Active 2 (two) times daily. carvedilol (COREG) Take 12.5 mg by 0 Active 12.5 MG tablet mouth 2 (two) times daily with breakfast and dinner. amLODIPine (NORVASC) Take 5 mg by mouth 0 Active 5 MG tablet daily. folic acid (FOLVITE) Take 1 mg by mouth 0 Active 1 MG tablet daily. furosemide (LASIX) Take 40 mg by mouth 0 Active 40 MG tablet daily. spironolactone Take 25 mg by mouth 0 Active (ALDACTONE) 50 MG daily . tablet enoxaparin (LOVENOX) Inject 1 mL (100 mg 60 Syringe 3 03/07/20 19 Active 100 mg/mL Syrg total) subcutaneously every 12 (twelve) hours. 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 Family History Medical History Relation Name Comments No Known Problem Father No Known Problem Mother Relation Name Status Comments Father Mother Social History Tobacco Use Types Packs/Day Years Used Date Current Some Day Smoker Cigarettes 0.25 Smokeless Tobacco: Never Used Alcohol Use Drinks/Week oz/Week Comments No / patricio Barragan eam daily x 3Y (Quit ~ 06/22/2018) Sex Assigned at Date Recorded Not on file Last Filed Vital Signs Not on file Plan of Treatment Health Maintenance Due Date Last Done Comments COLON CANCER SCREENING COLONOSCOPY 1960 PNEUMOCOCCAL VACCINE 0-64 YRS (1 of 1 - PPSV23) 1966 LIPID PANEL 01/11/1996 MEDICARE ANNUAL WELLNESS (YEAR 2 or FIRST YEAR if no 12/06/2018 IPPE) INFLUENZA VACCINE (#1) 2020 Results Not on fileafter 07/29/2019 Insurance Payer Benefit Plan / Subscriber ID Effective Phone Address T ype Group Dates MEDICARE MEDICARE A B [id number] 2017-Prese Medicare nt MEDICAID - [place] [facility] [id number] 2016-[place] STAR PLAN nt Contrac [place] [facility] ([place] [place] [phone] Advance Directives For more information, please contact: [phone] Code Status Date Activated Date Inactivated Comments [...]
--- OUTSIDE RECORDS SUMMARY | 2020-07-29 22:13 | XMS REPORT | Continuity of Care Document ---
:1960 Author Organization [facility] t Address [address] [place] [address] [address]. [address] [place] [address] Care Team Providers Name Role Phone Mike Klein Primary Care Physician Charlie Broderick MD Attending Clinician Dani RICHMOND Attending Clinician Unavailable OMAYRA ASHTON Attending Clinician Unavailable PRUDENCE Attending Clinician Unavailable LANA COKER Attending Clinician Unavailable Dani RICHMOND Admitting Clinician Unavailable OMAYRA ASHTON Admitting Clinician Unavailable PRUDENCE Admitting Clinician Unavailable LANA COKER Admitting Clinician Unavailable Problems Condition Condition Condition Status Onset Resolution Last Treating Co mments Source Name Details Category Date Date Treatment Clinician Date Chronic Chronic Problem Active [place] pain Pain 6- Family 00:00: Practic 00 e Hypertensi Hypertensi Problem Active [facility] ve ve 6- Family disorder Disorder 00:00: Practi c 00 e Inferior Inferior Disease [facility]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 thromboemb 00:00: Me dical olism olism 00 Center Nonhealing Nonhealing Disease Active [facility] surgical surgical 7-18 [facility] wound wound 00:[facility]: Medical 00 Center Wound Wound Disease Active [address] [facility] [facility] dehiscence dehiscence 3-12 Karin kes - 00:00: Medical 00 Center Hepatocell Hepatocell Disease Active 2019- [facility] ular ular 3-07 [facility] - carcinoma carcinoma 00:00: Medi ronald 00 Center Ventricula Ventricula Disease Active [address] r r 2-25 [facility] - tachycardi tachycardi 00:00: Me dical a a 00 Center HCV HCV Disease Active [facility] (hepatitis (hepatitis 07-30 Karin kes - C virus) C virus) 00:00: Medica l 00 Center Alcoholic Alcoholic Disease Active [facility]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 07-30 [facility] - of liver of liver 00:00: Medica l with with 00 Center ascites ascites Small Small Disease Active [facility] bowel bowel - [facility] - obstructio obstructio 00:00: Me dical n n 00 Center Former Former Disease Active [facility] smoker smoker 07-30 [facility] - 00:00: Medical 00 [place] Alcohol Alcohol Disease Active [facility] dependence dependence - Karin kes - 00:00: Medical 00 [place] Acute Acute Disease Active [facility] abdominal abdominal - [facility] - pain pain 00:00: Medical 00 [place] Pneumoperi Pneumoperi Disease Active [facility] toneum toneum 07-30 [facility] - 00:00: Medical 00 [place] Severe Severe Disease Active [facility] sepsis sepsis 07-30 [facility] - 00:00: Medical 00 [place] ARF (acute ARF (acute Disease Active [facility] renal renal - [facility] - failure) failure) 00:00: Medica l 00 Center SB SB Disease Active [facility] perforatio perforatio 07-30 Karin kes - n s/b SBR n s/b SBR 00:00: Medi ronald (jejunal) (jejunal) 00 Cent er w/ primary w/ primary anastamosi anastamosi s s Allergies, Adverse Reactions, Alerts This patient has no known allergies or adverse reactions. Family History Family Member Diagnosis Comments Start Date Stop Date Source Natural father No Known Problem [facility] Natural mother No Known Problem [facility] Social History Social Habit Start Date Stop Date Quantity Comments Source Sex Assigned At [facility] History of tobacco Cigarette Smoker [facility] - use [facility] Cigarettes smoked 2018-12-23 2018-12-23 [facility] - current (pack per 00:00:00 00:00:00 Medical Center day) - Reported Tobacco use and 2018-12-23 2018-12-23 Never used [facility] - exposure 00:00:00 00:00:00 [facility] Alcohol intake 2018-12-23 2018-12-[address] [facility] - 00:00:00 00:00:00 non-drinker of Medical Ce nter alcohol (finding) Alcohol Comment 2018-09-21 2018-09-21 1/2 patricio Doyle [facility] 00:00:00 Beam daily x 3Y Medical C enter (Quit ~ 06/22/2018) Smoking Status Start Date Stop Date Source Light Tobacco Smoker [facility]se [facility] Current some day smoker 2018-12-23 00:00:[address] [facility] Medications Ordered Filled Start Stop Current Ordering Indication Dosage Frequency Signature Comments Components Source Medication Medication Date Date Medication? Clinician (SIG) Name Name rifAXIMin 2018-06 Yes 550mg Q.5D Take [address] 550 mg Tab 0-01 mg by [facility] - 19:31: mouth 2 Medical 22 (two) Center times daily. carvedilol 2018-06 Yes 12.5mg Take 12.[address] (COREG) 0-01 mg by [facility] - 12.5 MG 19:31: mouth 2 Medical tablet 22 (two) Center times daily with breakfast and dinner. amLODIPine 2018-06 Yes 5mg QD Take [address] (NORVASC) 5 0-01 by mouth [facility] - [facility] [address] folic acid 2018-06 Yes 1mg QD Take [address] (FOLVITE) 1 0-01 by mouth Luke [facility] - MG tablet 19:31: daily. Medica [address] furosemide 2018-06 Yes 40mg QD Take [address] (LASIX) 40 0-01 by mouth [facility] - MG tablet 19:31: daily. Medica [address] spironolact 2018-06 Yes 25mg QD Take [address] one 0-01 by mouth [facility] - (ALDACTONE) 19:31: daily . Med ical 50 MG 22 Center tablet enoxaparin 2018-06 Yes 100mg Inject [address] (LOVENOX) 0-01 mL (100 mg [facility] - 100 mg/mL 00:00: total) Medica l Syrg 00 subcutane Center usly every 12 (twelve) hours. acetaminoph acetaminoph No 1capsul BID acetaminop [place] en 325 en 325 e(s) hen 325 [...] Comments Source Height 2019-11-06 00:00:00 72 [in_i] [facility] BMI (Body Mass 2019-11-06 00:00:00 33.2 kg/m2 [facility] Index) Practice Body Weight 2019-11-06 00:00:00 245 [lb_av] [facility] Procedures This patient has no known procedures. Plan of Care Planned Activity Planned Date Details Comments Source Future Scheduled Test 2020-02-[address] [facility] - 00:00:00 (#1) [code = [facility] INFLUENZA VACCINE (#1)] Future Scheduled Test 2018-12-[address] [facility] - 00:00:00 WELLNESS (YEAR 2 or Medical Center FIRST YEAR if no IPPE) [code = MEDICARE ANNUAL WELLNESS (YEAR 2 or FIRST YEAR if no IPPE)] Future Scheduled Test 1996-01-[address] [facility] - 00:00:00 (procedure) [code = [facility] [id number]] Future Scheduled Test [address] [facility] - 00:00:00 0-64 YRS (1 of 1 - Medical C enter PPSV23) [code = PNEUMOCOCCAL VACCINE 0-64 YRS (1 of 1 - PPSV23)] Future Scheduled Test 1960 [facility] malignant neoplasm of Medica l Center colon (procedure) [code = [id number]] Instructions [facility] Encounters Start End Encounter Admission Attending Care Care Encounter Source Date/Time Date/Time Type Type Clinicians Facility Department ID 2019-11-06 2019-11-06 Radha [facility] [place] - [id number] [facility] illage 00:00:00 00:00:00 Saroj [facility] maryse loomis [employer]: Medical - Practi colby [address] [email or web address]@_ e [facility], [address] [place] [address], [place] [address] , Ph. 2019-04-12 2019-04-12 [facility] [id number] 08:34:32 09:18:32 Visit Cody Dumont [id number] Charlie [id number] 2019-03-21 2019-03-21 Office [facility] [id number] 10:04:47 10:34:47 Visit Cody Dumont [id number] Charlie [id number] 2019-01-31 2019-01-31 Office ANATOLIY Broderick [id number] 09:06:24 10:55:30 Visit Cody STODDARD [id number] Charlie Y [id number] Results Test Description Test Time Test Comments Results Result Comments Source HEPATITIS B PCR, QUANTITATIVE 2019-03-09 12:46:00 Test Item Value Reference Range Interpretation Comme nts HBV RESULT COMPONENT (BEAKER) (test HBV DNA not detected HBV DNA no t detected code = 2701) This test uses a Real-Time Polymerase Chain Reaction (RT-PCR) methodology and was performed using JOY AmpliPrep/JOY TaqMan HBV Test, v2.0 ([employer]Reportable range for this assay is 20 - 170,000,000 IU per mL (1.30 - 8.23 Log IU/mL).[id number] 15:14:00 Test Item Value Reference Range Interpretation Comments PARTIAL THROMBOPLASTIN TIME 74.4 seconds 22.5-36.0 H (BEAKER) (test code = 760) HEPATITIS C PCR, [id number] 15:07:00 Test Item Value Reference Range Interpretation Comments HCV NUMERIC RESULT (BEAKER) (test 07319 IU/mL <15 H code = 2700) This test uses a Real-Time Polymerase Chain Reaction (RT-PCR) methodology and was performed using JOY Ampliprep/JOY TaqMan HCV test kit version 2.0 ([employer]).Reportable range for this assay is 15 - 100,000,000 IU per mL (1.18 - 8.00 Log IU/mL).[id number] 13:24:00 Test Item Value Reference Range Interpretation Comments PARTIAL THROMBOPLASTIN TIME 143.9 seconds 22.5-36.0 H (BEAKER) (test code = 760) BASIC METABOLIC [id number] 06:49:00 Test Item Value Reference Range Interpretation [...] S NOT APPLICABLE FOR DIALYSIS PATIEN TS. [id number] 06:39:00 Test Item Value Reference Range Interpretation Comments PARTIAL THROMBOPLASTIN TIME 84.1 seconds 22.5-36.0 H (BEAKER) (test code = 760) 6 hours after starting heparin infusion and as indicated per sliding scaleCBC W/PLT COUNT & AUTO [id number] 06:29:00 Test Item Value Reference Range Interpretation [...] 0-1 PERCENT (BEAKER) (test code = 2801) [id number] 00:42:00 Test Item Value Reference Range Interpretation Comments PARTIAL THROMBOPLASTIN TIME 47.0 seconds 22.5-36.0 H (BEAKER) (test code = 760) Prior to initiating heparinCBC (HEMOGRAM ONLY)2019-03-07 00:21:00 Test Item Value Reference [...] 0-0 (test code = 413) MR, ABDOMEN, [id number] 12:56:00Referring: Dr. Broderick, [facility] REPORT TECHNIQUE: MRI of the abdomen WITHOUT [...] MDReport Verified Date/Time: 03/06/2019 12:56:03 Reading Location: [address] Radiology Reading Room ALPHA FETOPROTEIN (AFP), TUMOR [id number] 11:15:00 Test Item Value Reference Range Interpretation Comments ALPHA-FETOPROTEIN (BEAKER) 74545.0 ng/mL <10.0 H (test code = 1094) HEPATIC FUNCTION [id number] 10:12:00 Test Item Value Reference Range Interpretation [...] = 49 U/L 6-55 347) BASIC METABOLIC [id number] 10:12:00 Test Item Value Reference Range Interpretation [...] S NOT APPLICABLE FOR DIALYSIS PATIEN TS. [id number] 10:11:00 Test Item Value Reference Range Interpretation Comments POC-CREATININE 0.8 mg/dL 0.6-1.[address] [facility] 6720 (BEAKER) (test [place] code = 1532) [address] POC-EGFR (BEAKER) 99 mL/min/1.73M2 (test code = 1860) PROTHROMBIN [id number] 09:56:00 Test Item Value Reference Range Interpretation Comments PROTIME (BEAKER) (test code = 13.8 seconds 11.9-14.2 759) INR (BEAKER) (test code = 370) 1.1 <=5.9 Effective 11/02/2018: PT Reference Range ChangeNew: 11.9-14.2 Previous: 11.7- 14.7RECOMMENDED COUMADIN/WARFARIN INR THERAPY RANGESSTANDARD DOSE: 2.0-3.0 Includes: PROPHYLAXIS for venous thrombosis, systemic embolization; TREATMENT for venous thrombosis and/or pulmonary embolus.HIGH RISK: Target INR is2.5-3.5 for patients wiht mechanical heart valves.CBC W/PLT COUNT & AUTO [id number] 09:41:00 Test Item Value Reference Range Interpretation Comments WHITE BLOOD CELL COUNT (BEAKER) 4.6 K/ L 3.5-10.5 (test code = 775) RED BLOOD CELL COUNT (BEAKER) 5.44 M/ L 4.63-6.08 (test code = [...] (test code = 2801) RADIO'TX, INTRA-ARTERIAL PARTIC [id number] 09:28:00Referring: Cody Barrow Reason for Exam:->liver cancerFINAL REPORT PROCEDURE: Y-90 microsphere therapy (SIR-Spheres) CPT CODE: 77221 CLINICAL INDICATION: Liver cancer PROTOCOL: 20 mCi of Y-90 labeled microspheres (SIR-Spheres) was administered via a hepatic artery catheter to the right lobe of the liver. IMPRESSION: Y-90 microsphere therapy Signed: Melissa Mathew Verified Date/Time: 12/07/2018 09:28:48 Reading Location: [address] Nuc Med Reading Room TUMOR LOCALIZATION, [id number] 16:50:00Referring: Cody Barrow Reason for Exam:->liver cancerFINAL REPORT PROCEDURE: TRACER DISTRIBUTION STUDY - SPECT (Bremsstrahlung) CPT CODE: 79572 CLINICAL INDICATION: Hepatocellular carcinoma PROTOCOL: 20.0 mCi [...] Jin Verified Date/Time: 12/06/2018 16:50:43 Reading Location: [address] 261 Nuc Med Reading Room ANG, VISCERAL [id number] 14:59:00Referring: Shoshana Barrow for Exam:->liver cancerFINAL REPORT Hepatic angiogram for SIR sphere infusion. History: Multifocal HCC. Modality: Ultrasound and sonography. knitting machine operator automatic: Levi Min MD Paint Grinder: MD Romy (resident). Sedation: Moderate sedation was [...] The needle was exchanged for a 4 Honduran micropuncture sheath. The micropuncture sheath was exchanged over a 0.035 Bentson wire for a 5 Honduran x 10 cm vascular sheath. A 5 Honduran Moore B catheter was used to cannulate the celiac axis. A DSA run was performed. Using a 2.8 Honduran microcatheter and 0.016 inch microwire, the common [...] radio-embolization.2. Successfulhemostasis with closure device. Signed: Levi [place] Verified Date/Time: 12/06/2018 14:59:07 Reading Location: [place] [address] Angio Body Reading Room COMPREHENSIVE METABOLIC [id number] 09:32:00 Test Item Value Reference Range Interpretation [...] I S NOT APPLICABLE FOR DIALYSIS PATIEN [id number] 09:14:00 Test Item Value Reference Range Interpretation Comments PARTIAL THROMBOPLASTIN TIME 28.3 seconds 22.5-36.0 (BEAKER) (test code = 760) PROTHROMBIN [id number] 09:13:00 Test Item Value Reference Range Interpretation [...] mechanical heart valves.CBC W/PLT COUNT & AUTO [id number] 09:06:00 Test Item Value Reference Range Interpretation [...] (BEAKER) (test code = 2801) ANG, VISCERAL [id number] 16:55:00Referring: Cody [facility]arrowMohansic [facility] for Y- 90Reason for Exam:->Mapping for Y-90FINAL [...] stable. Physician intra-service time was 30 minutes. Internet Programmer:Jem Dupree MD. Paint Grinder: None. Approach: Rightcommon femoral artery Estimated blood [...] The needle was removed and a 4 Honduran micropuncture sheath was placed, and the 0.018 wire was exchanged for 0.035 inch Kumar wire. A 5 Honduran sheath was placed. A guiding catheter was [...] the right hepatic artery. Signed: Jem Dupree MDReport Verified Date/Time: 11/11/2018 16:55:59 Read ing Location: [place] [address] Angio Body Reading Room TUMOR LOCAL, PRE-MICROSPHERE [place] 2018-10-25 08:26:00Referring: Cody Barrow Mapping for Y-90 Right Lobe Reason for Exam:->Mapping for Y-90FINAL REPORT PROCEDURE: TRACER DISTRIBUTION STUDY, WHOLE BODY \\T\\ SPECT CPTCODE: 75605, 99538 CLINICAL INDICATION: HCC PROTOCOL: A total of [...] acceptable range for therapy. Signed: Melissa Mathew MDReport Verified Date/Time: 10/25/2018 08:26:24 Reading Location: [address] [place] [address] Reading Room BASIC METABOLIC [id number] 10:27:00 Test Item Value Reference Range Interpretation [...] S NOT APPLICABLE FOR DIALYSIS PATIEN TS. [id number] 10:17:00 Test Item Value Reference Range Interpretation Comments PARTIAL THROMBOPLASTIN TIME 28.0 seconds 22.5-36.0 (BEAKER) (test code = 760) PROTHROMBIN [id number] 10:16:00 Test Item Value Reference Range Interpretation [...] (test code = 2801) AFB CULTURE + [id number] 16:02:00 Test Item Value Reference Range Interpretation Comments CULTURE (BEAKER) (test No acid-fast bacilli code = 1095) isolated in 42 days AFB SMEAR (BEAKER) No acid fast bacilli (test code = 994) seen COMPREHENSIVE METABOLIC [id number] 12:43:00 Test Item Value Reference Range Interpretation [...] NOT APPLICABLE FOR DIALYSIS PATIEN TS. BILIRUBIN, [id number] 12:43:00 Test Item Value Reference Range Interpretation Comments BILIRUBIN DIRECT (BEAKER) (test 0.5 mg/dL 0.1-0.5 code = 706) PROTHROMBIN [id number] 12:27:00 Test Item Value Reference Range Interpretation [...] (test code = 2801) FUNGUS CULTURE + [id number] 11:43:00 Test Item Value Reference Range Interpretation Comments CULTURE (BEAKER) (test No fungus isolated in code = 1095) 28 days FUNGUS SMEAR (BEAKER) No fungi seen (test code = 1406) AFB CULTURE + [id number] 13:22:00 Test Item Value Reference Range Interpretation Comments CULTURE (BEAKER) (test No acid-fast bacilli code = 1095) isolated in 42 days AFB SMEAR (BEAKER) No acid fast bacilli (test code = 994) seen SURGICALLY OBTAINED CULTURE + GRAM [id number] 17:22:00 Test Item Value Reference Range Interpretation [...] Tobramycin (test S code = 25) CULTURE (AKER) ACINETOBACTER A <1+ (test code = 1095) [...] No organisms (BEAKER) (test code seen = 496182) Tigecycline (test Susceptible >0-0 , code = 133) No Interpretations Established <=0 or >0 GRAM STAIN RESULT No organisms (BEAKER) (test code seen = 449199) FUNGUS CULTURE + [id number] 16:59:00 Test Item Value Reference Range Interpretation Comments CULTURE (BEAKER) (test No fungus isolated in code = 1095) 28 days FUNGUS SMEAR (BEAKER) No fungi seen (test code = 1406) BODY FLUID CULTURE + GRAM [id number] 09:03:00 Test Item Value Reference Range Interpretation Comments CULTURE (BEAKER) (test No growth code = 1095) GRAM STAIN RESULT No White blood cells (BEAKER) (test code = seen 1123) GRAM STAIN RESULT No organisms seen (BEAKER) (test code = 86324) [id number] 06:18:00 Test Item Value Reference Range Interpretation Comments MAGNESIUM (BEAKER) (test code = 1.6 mg/dL 1.6-2.6 627) HEPATIC FUNCTION [id number] 06:18:00 Test Item Value Reference Range Interpretation [...] = 12 U/L 6-55 347) COMPREHENSIVE METABOLIC [id number] 06:18:00 Test Item Value Reference Range Interpretation [...] PATIEN TS. CBC W/PLT COUNT & AUTO [id number] 05:53:00 Test Item Value Reference Range Interpretation [...] PERCENT (BEAKER) (test code = 2801) POCT-GLUCOSE [id number] 21:26:00 Test Item Value Reference Range Interpretation Comments POC-GLUCOSE METER 148 mg/dL 70-110 H TESTED AT [facility] 6720 (BEAKER) (test code = JOHANA SNYDER 1538) [address] ANAEROBIC [id number] 19:51:00 Test Item Value Reference Range Interpretation Comments CULTURE (BEAKER) (test No anaerobes isolated code = 1095) BODY FLUID CELL COUNT WITH [id number] 18:29:00 Test Item Value Reference Range Interpretation Comments APPEARANCE FLUID (BEAKER) Slightly Bloody Clear A (test code = 510) COLOR FLUID (BEAKER) (test [place] Colorless, Straw A code = 511) RBC FLUID (BEAKER) (test 78470 /cu mm <=1 H code = 513) [...] Tube (BEAKER) (test code = 2873) U/S, [id number] 17:48:00Reason for exam:->large volume ascites FINAL REPORT Ultrasound guided paracentesis, 08/22/2018. Clinical History:Ascites. Sedation: None. Internet Programmer: Jem Dupree MD Paint Grinder: None. Estimated Blood Loss: < 1 cc. [...] was achieved with 1% lidocaine, a 5 Honduran one-step catheter was advanced into the peritoneal cavity under ultrasound guidance. After completion of drainage, the catheter was removed. There was no evidence of complication. The fluid is multiloculated, only a small amount of fluid could be aspirated. Impression:Successful ultrasound guided paracentesis. Signed: Jem Dupree MDReport Verified Date/Time: 08/22/2018 17:48:28 Reading Location: [facility] P006J Ultrasound Reading Room [id number] 13:44:00 Test Item Value Reference Range Interpretation [...] 2.5-3.5 for patients with mechanical heart valves.POCT-GLUCOSE [id number] 11:56:00 Test Item Value Reference Range Interpretation Comments POC-GLUCOSE METER 113 mg/dL 70-110 H TESTED AT [facility] 6720 (BEAKER) (test code = SUSUDELFINA DUPREE [place] 1538) [address] BODY FLUID CULTURE + GRAM [id number] 11:47:00 Test Item Value Reference Range Interpretation Comments CULTURE (BEAKER) (test No growth code = 1095) GRAM STAIN RESULT 2+ White blood cells (BEAKER) (test code = seen 1123) GRAM STAIN RESULT No organisms seen (BEAKER) (test code = 45085) HEPATIC FUNCTION [id number] 06:12:00 Test Item Value Reference Range Interpretation [...] = 10 U/L 6-55 347) COMPREHENSIVE METABOLIC [id number] 06:12:00 Test Item Value Reference Range Interpretation [...] S NOT APPLICABLE FOR DIALYSIS PATIEN TS. [id number] 06:11:00 Test Item Value Reference Range Interpretation Comments MAGNESIUM (BEAKER) (test code = 1.6 mg/dL 1.6-2.6 627) CBC W/PLT COUNT & AUTO [id number] 05:27:00 Test Item Value Reference Range Interpretation [...] PERCENT (BEAKER) (test code = 2801) POCT-GLUCOSE [id number] 21:23:00 Test Item Value Reference Range Interpretation Comments POC-GLUCOSE METER 101 mg/dL 70-110 TESTED AT [place] [address] [facility] (test code = [facility] 1538) [address] POCT-GLUCOSE [id number] 17:13:00 Test Item Value Reference Range Interpretation Comments POC-GLUCOSE METER 107 mg/dL 70-110 TESTED AT [place] [address] ([facility]) (test code = [facility] 1538) [address] POCT-GLUCOSE [id number] 12:47:00 Test Item Value Reference Range Interpretation Comments POC-GLUCOSE METER 111 mg/dL 70-110 H TESTED AT [place] [address] ([facility]) (test code = [facility] 1538) [address] POCT-GLUCOSE [id number] 08:06:00 Test Item Value Reference Range Interpretation Comments POC-GLUCOSE METER 112 mg/dL 70-110 H TESTED AT [place] [address] ([facility]) (test code = [facility] 1538) [address] [id number] 06:13:00 Test Item Value Reference Range Interpretation Comments MAGNESIUM (BEAKER) (test code = 1.4 mg/dL 1.6-2.6 L 627) HEPATIC FUNCTION [id number] 06:13:00 Test Item Value Reference Range Interpretation [...] = 13 U/L 6-55 347) COMPREHENSIVE METABOLIC [id number] 06:13:00 Test Item Value Reference Range Interpretation [...] PATIEN TS. CBC W/PLT COUNT & AUTO [id number] 05:34:00 Test Item Value Reference Range Interpretation [...] % 0-1 PERCENT (BEAKER) (test code = 2807) POCT-GLUCOSE [id number] 22:14:00 Test Item Value Reference Range Interpretation Comments POC-GLUCOSE METER 120 mg/dL 70-110 H TESTED AT [facility] 6720 (BEAKER) (test code = JOHANA DUPREE [place] 1538) [address] POCT-GLUCOSE [id number] 17:10:00 Test Item Value Reference Range Interpretation Comments POC-GLUCOSE METER 122 mg/dL 70-110 H TESTED AT [facility] 6720 (BEAKER) (test code = JOHANA [place] 1538) [address] POCT-GLUCOSE [id number] 17:04:00 Test Item Value Reference Range Interpretation Comments POC-GLUCOSE METER 110 mg/dL 70-110 TESTED AT [place] [id number] (BEAKER) (test code = [facility] El[place] 1538) [address] SPIN/CONCENTRATION [id number] 12:06:00 Test Item Value Reference Range Interpretation Comments CONCENTRATION CHARGED (BEAKER) (test Done code = 2657) POCT-GLUCOSE [id number] 07:14:00 Test Item Value Reference Range Interpretation Comments POC-GLUCOSE METER 100 mg/dL 70-110 TESTED AT [place] [address] (BEAKER) (test code = JOHANA [place] 1538) [address] COMPREHENSIVE METABOLIC [id number] 05:38:00 Test Item Value Reference Range Interpretation [...] S NOT APPLICABLE FOR DIALYSIS PATIEN TS. [id number] 05:23:00 Test Item Value Reference Range Interpretation Comments MAGNESIUM (BEAKER) (test code = 1.3 mg/dL 1.6-2.6 L 627) HEPATIC FUNCTION [id number] 05:23:00 Test Item Value Reference Range Interpretation [...] 6-55 347) CBC W/PLT COUNT & AUTO [id number] 04:44:00 Test Item Value Reference Range Interpretation [...] PERCENT (BEAKER) (test code = 2801) POCT-GLUCOSE [id number] 22:29:00 Test Item Value Reference Range Interpretation Comments POC-GLUCOSE METER 129 mg/dL 70-110 H TESTED AT [facility] 6720 (BEAKER) (test code = JOHANA Gan [employer] 1538) [address] U/S, [id number] 20:56:00Reason for exam:->large volume ascites FINAL REPORT PROCEDURE: Ultrasound-guided paracentesis. INDICATION: Ascites. DESCRIPTION: After obtaining informed written consent, ultrasound scan of the abdomen identified complex ascites in the right upper quadrant. The overlying skin was prepped and draped in the usual, sterile fashion and local 1% lidocaine anesthesia was administered. A 5 Honduran catheter was advanced intothe peritoneal cavity and 310 mL of serosanguinous fluid was removed. The catheter was removed without immediate complication. Samples were sent for analysis. IMPRESSION: Uncomplicated ultrasound-guided paracentesis with 310 mL fluid removed. Signed: Nyasia Angela MDReport Verified Date/Time: 08/19/201820:56:53 Reading Location: [address] Ultrasound Reading Room BODY FLUID CELL COUNT WITH [id number] 20:45:00 Test Item Value Reference Range Interpretation Comments APPEARANCE FLUID (BEAKER) (test Cloudy Clear A code = 510) COLOR FLUID (BEAKER) (test code [place] Colorless, Straw A = 511) RBC FLUID (BEAKER) (test code = 99629 /cu mm <=1 H 513) ADJUSTED WBC [...] EDTA Tube (test code = 2873) POCT-GLUCOSE [id number] 12:51:00 Test Item Value Reference Range Interpretation Comments POC-GLUCOSE METER 115 mg/dL 70-110 H TESTED AT [facility] 6720 (BEAKER) (test code = JOHANA Gan [employer] 1538) [address] POCT-GLUCOSE [id number] 08:54:00 Test Item Value Reference Range Interpretation Comments POC-GLUCOSE METER 137 mg/dL 70-110 H TESTED AT [facility] 6720 (BEAKER) (test code = JOHANA Gan [employer] 1538) [address] [id number] 05:17:00 Test Item Value Reference Range Interpretation Comments MAGNESIUM (BEAKER) (test code = 1.5 mg/dL 1.6-2.6 L 627) HEPATIC FUNCTION [id number] 05:17:00 Test Item Value Reference Range Interpretation [...] = 14 U/L 6-55 347) COMPREHENSIVE METABOLIC [id number] 05:17:00 Test Item Value Reference Range Interpretation [...] S NOT APPLICABLE FOR DIALYSIS PATIEN TS. [id number] 04:57:00 Test Item Value Reference Range Interpretation [...] 2.5-3.5 for patients with mechanical heart valves.PROTHROMBIN [id number] 04:56:00 Test Item Value Reference Range Interpretation [...] PERCENT (BEAKER) (test code = 2801) POCT-GLUCOSE [id number] 22:22:00 Test Item Value Reference Range Interpretation Comments POC-GLUCOSE METER 109 mg/dL 70-110 TESTED AT [place] [address] ([facility]) (test code = JOHANA [place] 1538) [address] POCT-GLUCOSE [id number] 15:46:00 Test Item Value Reference Range Interpretation Comments POC-GLUCOSE METER 136 mg/dL 70-110 H TESTED AT [facility] 6720 ([facility]) (test code = JOHANA [place] 1538) [address] POCT-GLUCOSE [id number] 12:24:00 Test Item Value Reference Range Interpretation Comments POC-GLUCOSE METER 122 mg/dL 70-110 H TESTED AT [facility] 6720 ([facility]) (test code = JOHANA Gan [place] 1538) [address] COMPREHENSIVE METABOLIC [id number] 08:46:00 Test Item Value Reference Range Interpretation [...] NOT APPLICABLE FOR DIALYSIS PATIEN TS. POCT-GLUCOSE [id number] 08:36:00 Test Item Value Reference Range Interpretation Comments POC-GLUCOSE METER 150 mg/dL 70-110 H TESTED AT [facility] 6720 ([facility] (test code = JOHANA Gan [place] 1538) [address] [id number] 08:33:00 Test Item Value Reference Range Interpretation Comments MAGNESIUM (BEAKER) (test code = 1.6 mg/dL 1.6-2.6 627) HEPATIC FUNCTION [id number] 08:33:00 Test Item Value Reference Range Interpretation [...] (test code = 15 U/L 6-55 347) [id number] 05:56:00 Test Item Value Reference Range Interpretation [...] PERCENT (BEAKER) (test code = 2801) POCT-GLUCOSE [id number] 21:50:00 Test Item Value Reference Range Interpretation Comments POC-GLUCOSE METER 173 mg/dL 70-110 H TESTED AT [facility] 6720 (BEAKER) (test code = JOHANA [place] 1538) [address] POCT-GLUCOSE [id number] 16:50:00 Test Item Value Reference Range Interpretation Comments POC-GLUCOSE METER 156 mg/dL 70-110 H TESTED AT [place] [address] (BEAKER) (test code = JOHANA Gan [employer] 1538) [address] POCT-GLUCOSE [id number] 12:54:00 Test Item Value Reference Range Interpretation Comments POC-GLUCOSE METER 85 mg/dL 70-110 TESTED AT [place] [address] (BEAKER) ([facility] = [facility] [employer] [address] 1538) POCT-GLUCOSE [id number] 06:23:00 Test Item Value Reference Range Interpretation Comments POC-GLUCOSE METER 75 mg/dL 70-110 TESTED AT [place] [address] (BEAKER) (test code = [facility] [employer] [address] 1538) CBC W/PLT COUNT & AUTO [id number] 05:55:00 Test Item Value Reference Range Interpretation [...] (BEAKER) (test code = 2801) COMPREHENSIVE METABOLIC [id number] 05:36:00 Test Item Value Reference Range Interpretation [...] L (test code = 697) AST (SGOT) (AKER) 45 U/L 5-34 H (test code = 353) ALT (SGPT) ([facility]) 20 U/L 6-55 (test code = 347) EGFR ([facility]) (test 61 mL/min/1.73 ESTIMA KE GFR IS code = 1092) sq m NOT ACCURATE CREATININE CLEARANCE IN PREDICTING GLOMERULAR FILTRATION RATE . ESTIMATED GFR I S NOT APPLICABLE FOR DIALYSIS PATIEN TS. [id number] 05:33:00 Test Item Value Reference Range Interpretation Comments MAGNESIUM ([facility]) (test code = 1.3 mg/dL 1.6-2.6 L 627) POCT-GLUCOSE [id number] 22:54:00 Test Item Value Reference Range Interpretation Comments POC-GLUCOSE METER 92 mg/dL 70-110 TESTED AT [place] [address] ([facility]) (test code = [facility] [address] 1538) POCT-GLUCOSE [id number] 17:57:00 Test Item Value Reference Range Interpretation Comments POC-GLUCOSE METER 88 mg/dL 70-110 TESTED AT [place] [address] ([facility]) (test code = [facility] [address] 1538) ANTI-MITOCHONDRIAL AB, REFLEX TO [id number] 08:52:00 Test Item Value Reference Range Interpretation Comments SCAN RESULT (test code = 6547471) BODY FLUID CULTURE + GRAM [id number] 09:23:00 Test Item Value Reference Range Interpretation Comments CULTURE ([facility]) (test code No growth = 1095) GRAM STAIN RESULT ([facility]) <1+ WBCs (test code = 1123) GRAM STAIN RESULT ([facility]) No organisms seen (test code = 44579) POCT-GLUCOSE [id number] 17:45:00 Test Item Value Reference Range Interpretation Comments POC-GLUCOSE METER 163 mg/dL 70-110 H TESTED AT [place] [address] ([facility]) (test code = [facility] 1538) [address] POCT-GLUCOSE [id number] 09:37:00 Test Item Value Reference Range Interpretation Comments POC-GLUCOSE METER 171 mg/dL 70-110 H TESTED AT [place] [address] ([facility]) (test code = [facility] 1538) [address] CALCIUM, [id number] 06:36:00 Test Item Value Reference Range Interpretation Comments CALCIUM IONIZED (BEAKER) (test 0.97 mmol/L 1.12-1.27 L code = 698) PH, BLOOD (BEAKER) (test code = 7.40 1810) COMPREHENSIVE METABOLIC [id number] 05:58:00 Test Item Value Reference Range Interpretation Comments TOTAL PROTEIN 5.9 gm/dL 6.0-8.3 L (BEAKER) (test code = 770) ALBUMIN (BEAKER) 2.0 g/dL 3.5-5.0 L (test code = 1145) ALKALINE PHOSPHATASE 153 U/L 40-150 H (BEAKER) (test code = 346) BILIRUBIN TOTAL 1.4 [...] S NOT APPLICABLE FOR DIALYSIS PATIEN TS. [id number] 05:57:00 Test Item Value Reference Range Interpretation Comments PHOSPHORUS (BEAKER) (test code = 3.1 mg/dL 2.3-4.7 604) [id number] 05:57:00 Test Item Value Reference Range Interpretation Comments MAGNESIUM (BEAKER) (test code = 1.7 mg/dL 1.6-2.6 627) BILIRUBIN, [id number] 05:57:00 Test Item Value Reference Range Interpretation Comments BILIRUBIN DIRECT (BEAKER) (test 1.1 mg/dL 0.1-0.5 H code = 706) [id number] 05:43:00 Test Item Value Reference Range Interpretation [...] PERCENT (BEAKER) (test code = 2801) POCT-GLUCOSE [id number] 22:04:00 Test Item Value Reference Range Interpretation Comments POC-GLUCOSE METER 161 mg/dL 70-110 H TESTED AT [facility] 6720 (BEAKER) (test code = JOHANA [place] 1538) [address] BODY FLUID CELL COUNT WITH [id number] 19:27:00 Test Item Value Reference Range Interpretation Comments APPEARANCE FLUID (BEAKER) (test Cloudy Clear A code = 510) COLOR FLUID (BEAKER) (test code [place] Colorless, Straw A = 511) RBC FLUID (BEAKER) (test code = 12312 /cu mm <=1 H 513) ADJUSTED WBC [...] EDTA Tube (test code = 2873) POCT-GLUCOSE [id number] 17:03:00 Test Item Value Reference Range Interpretation Comments POC-GLUCOSE METER 113 mg/dL 70-110 H TESTED AT [place] [address] ([facility]) (test code = [facility] 1538) [address] U/S, [id number] 16:04:00Reason for exam:->ascitesFINAL REPORT PROCEDURE: Ultrasound-guided paracentesis. INDICATION: 58-year-old man with ascites. DESCRIPTION: After obtaining informed written consent, ultrasound scan of the abdomen identified ascites in the right lower quadrant. The overlying skin was prepped and draped in the usual, sterile fashion and local 1% lidocaine anesthesia was administered. A 5 [place] catheter was advanced into the peritoneal cavity and 1200 cc of serosanguineous fluid was removed. The catheter was removed without immediate complication. Samples were sent for analysis. IMPRESSION:Uncomplicated ultrasound-guided paracentesis with 1200 cc fluid removed. Signed: Efren Rosas MDReport Verified Date/Time: 08/10/2018 16:04:03 Reading Location: [address] Ultrasound Reading Room POCT- GLUCOSE [id number] 09:25:00 Test Item Value Reference Range Interpretation Comments POC-GLUCOSE METER 168 mg/dL 70-110 H TESTED AT [place] [address] ([facility]) (test code = [facility] 1538) [address] COMPREHENSIVE METABOLIC [id number] 06:37:00 Test Item Value Reference Range Interpretation Comments TOTAL PROTEIN 6.2 gm/dL 6.0-8.3 (BEAKER) (test code = 770) ALBUMIN (BEAKER) 2.1 g/dL 3.5-5.0 L (test code = 1145) ALKALINE PHOSPHATASE 134 U/L 40-150 ([facility] (test code = 346) BILIRUBIN TOTAL 2.1 [...] S NOT APPLICABLE FOR DIALYSIS PATIEN TS. [id number] 06:33:00 Test Item Value Reference Range Interpretation Comments PHOSPHORUS (BEAKER) (test code = 3.4 mg/dL 2.3-4.7 604) [id number] 06:33:00 Test Item Value Reference Range Interpretation Comments MAGNESIUM (BEAKER) (test code = 1.7 mg/dL 1.6-2.6 627) BILIRUBIN, [id number] 06:33:00 Test Item Value Reference Range Interpretation Comments BILIRUBIN DIRECT (BEAKER) (test 1.4 mg/dL 0.1-0.5 H code = 706) [id number] 06:19:00 Test Item Value Reference Range Interpretation [...] PERCENT (BEAKER) (test code = 2801) CALCIUM, [id number] 05:47:00 Test Item Value Reference Range Interpretation Comments CALCIUM IONIZED (BEAKER) (test 1.04 mmol/L 1.12-1.27 L code = 698) PH, BLOOD (BEAKER) (test code = 7.37 1810) POCT-GLUCOSE [id number] 22:28:00 Test Item Value Reference Range Interpretation Comments POC-GLUCOSE METER 143 mg/dL 70-110 H TESTED AT [facility] 6720 ([facility]) (test code = JOHANA Gan [employer] 1538) [address] POCT-GLUCOSE [id number] 18:35:00 Test Item Value Reference Range Interpretation Comments POC-GLUCOSE METER 137 mg/dL 70-110 H TESTED AT [facility] 6720 ([facility]) (test code = [facility] 1538) [address] [id number] 18:22:00 Test Item Value Reference Range Interpretation Comments MAGNESIUM (BEAKER) (test code = 1.8 mg/dL 1.6-2.6 627) BONE AND/OR JOINT IMAGING, WHOLE [id number] 16:34:00FINAL REPORT PROCEDURE: BONE SCAN, WHOLE BODY CPT CODE: 70135 GERI CATION: HCC PROTOCOL: 31.3 mCi of [...] on August 18, 2018.. Signed: Melissa Mathew MDReport Verified Date/Time: 08/09/2018 16:34:55 Reading Location: [address] Reading Room POCT-GLUCOSE [id number] 12:20:00 Test Item Value Reference Range Interpretation Comments POC-GLUCOSE METER 121 mg/dL 70-110 H TESTED AT [place] [address] ([facility] (test code = JOHANA Gan [employer] 1538) [address] [id number] 12:20:00Medical Cytology Report Case: [id number] Authorizing Provider: Anjel Moya MD Collected: 08/06/2018 1400 Ordering Location: [address] Received: 08/08/2018 0943 Service Pathologist: Nadege Busby MD Specimen: Peritoneal Fluid PERITONEAL FLUID (CYTOSPINS AND CELL BLOCK): - NEGATIVE FOR MALIGNANCY PREDOMINANTLY BLOOD; ACUTE INFLAMMATORY CELLS Signing Pathologist Direct Phone Line: [phone] signed by Eliseo Busby MD on 08/09/2018 at 12:20 [id number], [id number], recently diagnosed with hepatocellular carcinoma(see [id number])PERITONEAL [id number] mls orange; 4 cytospins, cell blockCollected: [id number]: 0304 19Performed.[facility], Department of Pathology, [address] [place] [address], [facility], [facility] of [facility]ology, [address] [place] [address], [facility]uz[facility], Department of P athology, [address] [place] [address], ANZLC CULTURE 2018-08-09 11:41:00 Test Item Value Reference Range Interpretation Comments CULTURE (BEAKER) A From Anaero bic (test code = Bottle Only 1095) Eggerthella vasquez ta GRAM STAIN From anaerobic RESULT (BEAKER) bottle only: gram (test code = positive rods 1123) BODY FLUID CULTURE + GRAM [id number] 08:58:00 Test Item Value Reference Range Interpretation Comments CULTURE (BEAKER) (test code No growth = 1095) GRAM STAIN RESULT (BEAKER) 2+ WBCs (test code = 1123) GRAM STAIN RESULT (BEAKER) No organisms seen (test code = 61965) POCT-GLUCOSE [id number] 08:21:00 Test Item Value Reference Range Interpretation Comments POC-GLUCOSE METER 136 mg/dL 70-110 H TESTED AT [facility] 6720 (BEAKER) (test code = JOHANA [place] 1538) [address] [id number] 04:26:00 Test Item Value Reference Range Interpretation Comments PHOSPHORUS (BEAKER) (test code = 3.9 mg/dL 2.3-4.7 604) [id number] 04:26:00 Test Item Value Reference Range Interpretation Comments MAGNESIUM (BEAKER) (test code = 1.8 mg/dL 1.6-2.6 627) BILIRUBIN, [id number] 04:26:00 Test Item Value Reference Range Interpretation Comments BILIRUBIN DIRECT (BEAKER) (test 1.4 mg/dL 0.1-0.5 H code = 706) COMPREHENSIVE METABOLIC [id number] 04:26:00 Test Item Value Reference Range Interpretation [...] PATIEN TS. CBC W/PLT COUNT & AUTO [id number] 04:21:00 Test Item Value Reference Range Interpretation [...] 0-1 PERCENT (BEAKER) (test code = 2801) [id number] 04:11:00 Test Item Value Reference Range Interpretation Comments PROTIME (BEAKER) (test code = 17.5 seconds 11.7-14.7 H 759) INR (BEAKER) (test code = 370) 1.4 <=5.9 PARTIAL THROMBOPLASTIN TIME 37.9 seconds 22.5-36.0 H (BEAKER) (test code = 760) RECOMMENDED COUMADIN/WARFARIN INR THERAPY RANGESSTANDARD DOSE: 2.0 - 3.0 Includes: PROPHYLAXIS forvenous thrombosis, systemic embolization; TREATMENT for venous thrombosis and/or pulmonary embolus.HIGH RISK: Target INR is 2.5-3.5 for patients with mechanical heart valves.CALCIUM, [id number] 03:49:00 Test Item Value Reference Range Interpretation Comments CALCIUM IONIZED (BEAKER) (test 1.03 mmol/L 1.12-1.27 L code = 698) PH, BLOOD (BEAKER) (test code = 7.41 1810) POCT-GLUCOSE [id number] 21:30:00 Test Item Value Reference Range Interpretation Comments POC-GLUCOSE METER 139 mg/dL 70-110 H TESTED AT [facility] 6720 (BEAKER) (test code = JOHANA [place] 1538) [address] CT, CHEST, WITHOUT [id number] 20:21:00FINAL REPORT CT scan of the chest. [...] to recent dedicated abdominal imaging. Signed: Jani Aikeneport Verified Date/Time:08/08/2018 20:21:41 Reading Location: [address] Consult Reading Room POCT-GLUCOSE [id number] 18:52:00 Test Item Value Reference Range Interpretation Comments POC-GLUCOSE METER 129 mg/dL 70-110 H TESTED AT [facility] 6720 ([facility]) (test code = JOHANA Gan [employer] 1538) [address] [id number] 16:06:00 Test Item Value Reference Range Interpretation Comments MAGNESIUM (BEAKER) (test code = 1.8 mg/dL 1.6-2.6 627) MR, ABDOMEN, [id number] 14:37:00FINAL REPORT INDICATION:Cirrhosis. Surveillance for hepatocellular carcinoma.COMPARISON: [...] MDReport Verified Date/Time: 08/08/2018 14:37:29 Reading Location: [facility] C0Y CT Body Reading Room POCT-GLUCOSE [id number] 12:13:00 Test Item Value Reference Range Interpretation Comments POC-GLUCOSE METER 126 mg/dL 70-110 H TESTED AT [facility] 67 ([facility]) (test code = [facility] 1538) [address] POCT-GLUCOSE [id number] 08:54:00 Test Item Value Reference Range Interpretation Comments POC-GLUCOSE METER 172 mg/dL 70-110 H TESTED AT [facility] 67 ([facility]) (test code = [facility] 1538) [address] COMPREHENSIVE METABOLIC [id number] 04:09:00 Test Item Value Reference Range Interpretation Comments TOTAL PROTEIN 6.1 gm/dL 6.0-8.3 ([facility]) (test code = 770) ALBUMIN ([facility]) 2.2 g/dL 3.5-5.0 L (test code = [...] APPLICABLE FOR DIALYSIS PATIEN TS. Specimen slightly [id number] 04:05:00 Test Item Value Reference Range Interpretation Comments PHOSPHORUS (BEAKER) (test code = 3.4 mg/dL 2.3-4.7 604) [id number] 04:05:00 Test Item Value Reference Range Interpretation Comments MAGNESIUM (BEAKER) (test code = 1.7 mg/dL 1.6-2.6 627) BILIRUBIN, [id number] 04:05:00 Test Item Value Reference Range Interpretation Comments BILIRUBIN DIRECT (BEAKER) (test 1.9 mg/dL 0.1-0.5 H code = 706) [id number] 03:53:00 Test Item Value Reference Range Interpretation Comments MAGNESIUM (BEAKER) (test code = 1.6 mg/dL 1.6-2.6 627) [id number] 03:37:00 Test Item Value Reference Range Interpretation [...] PERCENT (BEAKER) (test code = 2801) CALCIUM, [id number] 03:23:00 Test Item Value Reference Range Interpretation Comments CALCIUM IONIZED (BEAKER) (test 1.00 mmol/L 1.12-1.27 L code = 698) PH, BLOOD ([facility]) (test code = 7.45 1810) POCT-GLUCOSE [id number] 22:31:00 Test Item Value Reference Range Interpretation Comments POC-GLUCOSE METER 144 mg/dL 70-110 H TESTED AT [place] [address] ([facility]) (test code = [facility] 1538) [address] POCT-GLUCOSE [id number] 16:34:00 Test Item Value Reference Range Interpretation Comments POC-GLUCOSE METER 127 mg/dL 70-110 H TESTED AT [place] [address] ([facility]) (test code = [facility] 1538) [address] POCT-GLUCOSE [id number] 12:58:00 Test Item Value Reference Range Interpretation Comments POC-GLUCOSE METER 144 mg/dL 70-110 H TESTED AT [place] [address] ([facility]) (test code = [facility] 1538) [address] CBC W/PLT COUNT & AUTO [id number] 07:12:00 Test Item Value Reference Range Interpretation Comments WHITE BLOOD CELL COUNT (BEAKER) 10.1 K/ L 3.5-10.5 (test code = 775) RED BLOOD CELL COUNT (AKER) 4.15 M/ L 4.63-6.08 L (test code [...] 0-1 PERCENT (BEAKER) (test code = 2801) [id number] 07:07:00 Test Item Value Reference Range Interpretation Comments PREALBUMIN (BEAKER) (test code = 586) 7 mg/dL 14-45 L COMPREHENSIVE METABOLIC [id number] 06:58:00 Test Item Value Reference Range Interpretation [...] APPLICABLE FOR DIALYSIS PATIEN TS. Specimen slightly [id number] 06:57:00 Test Item Value Reference Range Interpretation Comments MAGNESIUM (BEAKER) (test code = 1.8 mg/dL 1.6-2.6 627) [id number] 06:57:00 Test Item Value Reference Range Interpretation Comments PHOSPHORUS (BEAKER) (test code = 3.1 mg/dL 2.3-4.7 604) [id number] 06:57:00 Test Item Value Reference Range Interpretation Comments TRIGLYCERIDES (BEAKER) (test code = 64 mg/dL 540) TRIGLYCERIDE REFERENCE RANGELow Risk <150Borderline Risk 150-199High Risk 200-499Very High Risk>=500Specimen slightly ictericBILIRUBIN, DIRECT 2018-08-07 06:57:00 Test Item Value Reference Range Interpretation Comments BILIRUBIN DIRECT (BEAKER) (test 2.0 mg/dL 0.1-0.5 H code = 706) C-REACTIVE [id number] 06:57:00 Test Item Value Reference Range Interpretation Comments C-REACTIVE PROTEIN (BEAKER) (test 3.98 mg/dL 0.00-0.50 H code = 676) [id number] 06:37:00 Test Item Value Reference Range Interpretation Comments MAGNESIUM (BEAKER) (test code = 1.8 mg/dL 1.6-2.6 627) [id number] 06:10:00 Test Item Value Reference Range Interpretation [...] 2.5-3.5 for patients with mechanical heart valves.CALCIUM, [id number] 05:17:00 Test Item Value Reference Range Interpretation Comments CALCIUM IONIZED (BEAKER) (test 1.01 mmol/L 1.12-1.27 L code = 698) PH, BLOOD (BEAKER) (test code = 7.43 7353) POCT-GLUCOSE [id number] 22:09:00 Test Item Value Reference Range Interpretation Comments POC-GLUCOSE METER 131 mg/dL 70-110 H TESTED AT [facility] 6720 (BEAKER) (test code = JOH[place] 1538) [address] POCT-GLUCOSE [id number] 16:04:00 Test Item Value Reference Range Interpretation Comments POC-GLUCOSE METER 126 mg/dL 70-110 H TESTED AT [facility] 6720 (BEAKER) (test code = J[place] 1538) [address] U/S, [id number] 15:57:00Reason for exam:->large volume ascites FINAL REPORT [...] none. Impression: Uncomplicated ultrasound-guided paracentesis Signed: Jas [facility] Verified Date/Time: 08/06/2018 15:57:17 Reading Location: [facility] C013X [facility] Consult Reading Room BODY FLUID CELL COUNT WITH [id number] 15:17:00 Test Item Value Reference Range Interpretation Comments APPEARANCE FLUID (BEAKER) (test Bloody Clear A code = 510) COLOR FLUID (BEAKER) (test code [place] Colorless, Straw A = 511) RBC FLUID (BEAKER) (test code = 66639 /cu mm <=1 H 513) ADJUSTED WBC [...] Tube (test code = 2873) ALBUMIN, BODY [id number] 15:15:00 Test Item Value Reference Range Interpretation Comments ALBUMIN FLUID (BEAKER) (test code = 1.0 gm/dL 501) Reference Range: No Normals Assay performance has not been validated for this type of specimen.PROTEIN, BODY [id number] 15:13:00 Test Item Value Reference Range Interpretation Comments PROTEIN FLUID (BEAKER) (test code = 1.8 g/dL 579) Absence of reference range indicates that normals have not been defined.Assay performance has not been validated for this type of specimen.BODY FLUID CULTURE + GRAM [id number] 14:46:00 Test Item Value Reference Range Interpretation Comments CULTURE (BEAKER) (test code No growth = 1095) GRAM STAIN RESULT (BEAKER) 1+ WBCs (test code = 1123) GRAM STAIN RESULT (BEAKER) No organisms seen (test code = 01796) POCT-GLUCOSE [id number] 12:05:00 Test Item Value Reference Range Interpretation Comments POC-GLUCOSE METER 204 mg/dL 70-110 H TESTED AT [place] [address] (BEAKER) (test code = [facility] [employer] 1538) [address] POCT-GLUCOSE [id number] 08:23:00 Test Item Value Reference Range Interpretation Comments POC-GLUCOSE METER 101 mg/dL 70-110 TESTED AT [place] [address] [facility] (test code = [facility] [employer] 1538) [address] CBC W/PLT COUNT & AUTO [id number] 06:40:00 Test Item Value Reference Range Interpretation [...] PERCENT (BEAKER) (test code = 2801) CALCIUM, [id number] 06:02:00 Test Item Value Reference Range Interpretation Comments CALCIUM IONIZED (BEAKER) (test 0.98 mmol/L 1.12-1.27 L code = 698) PH, BLOOD (BEAKER) (test code = 7.43 1810) COMPREHENSIVE METABOLIC [id number] 05:53:00 Test Item Value Reference Range Interpretation [...] APPLICABLE FOR DIALYSIS PATIEN TS. Specimen slightly ictericPT/[id number] 05:52:00 Test Item Value Reference Range Interpretation [...] is 2.5-3.5 for patients with mechanical heart valves.[id number] 05:36:00 Test Item Value Reference Range Interpretation Comments PHOSPHORUS (BEAKER) (test code = 2.5 mg/dL 2.3-4.7 604) [id number] 05:36:00 Test Item Value Reference Range Interpretation Comments MAGNESIUM (BEAKER) (test code = 1.9 mg/dL 1.6-2.6 627) BILIRUBIN, [id number] 05:36:00 Test Item Value Reference Range Interpretation Comments BILIRUBIN DIRECT (BEAKER) (test 2.0 mg/dL 0.1-0.5 H code = 706) B-TYPE NATRIURETIC FACTOR (BNP)2018-08-06 05:32:00 Test Item Value Reference Range Interpretation Comments B-TYPE NATRIURETIC PEPTIDE (BEAKER) 139 pg/mL 0-100 H (test code = 700) BLOOD [id number] 01:01:00 Test Item Value Reference Range Interpretation Comments CULTURE (BEAKER) (test No growth in 5 days code = 1095) BLOOD [id number] 01:01:00 Test Item Value Reference Range Interpretation Comments CULTURE (BEAKER) (test No growth in 5 days code = 1095) POCT-GLUCOSE [id number] 21:48:00 Test Item Value Reference Range Interpretation Comments POC-GLUCOSE METER 155 mg/dL 70-110 H TESTED AT [facility] 6720 (BEAKER) (test code = [place] 1538) [address] BLOOD [id number] 19:05:00 Test Item Value Reference Range Interpretation Comments CULTURE (BEAKER) A From Aerobi c Bottle (test code = Only Coagulase 1095) negative Staphylococcus GRAM STAIN From aerobic RESULT (BEAKER) bottle only: (test code = gram positive 1123) cocci in clusters POCT-GLUCOSE [id number] 17:46:00 Test Item Value Reference Range Interpretation Comments POC-GLUCOSE METER 119 mg/dL 70-110 H TESTED AT [facility] 6720 (BEAKER) (test code = [place] 1538) [address] POCT-GLUCOSE [id number] 12:00:00 Test Item Value Reference Range Interpretation Comments POC-GLUCOSE METER 148 mg/dL 70-110 H TESTED AT [facility] 6720 (BEAKER) (test code = [place] 1538) [address] COMPREHENSIVE METABOLIC [id number] 07:14:00 Test Item Value Reference Range Interpretation [...] APPLICABLE FOR DIALYSIS PATIEN TS. Specimen slightly [id number] 07:12:00 Test Item Value Reference Range Interpretation Comments PHOSPHORUS (BEAKER) (test code = 2.4 mg/dL 2.3-4.7 604) [id number] 07:12:00 Test Item Value Reference Range Interpretation Comments MAGNESIUM (BEAKER) (test code = 2.0 mg/dL 1.6-2.6 627) BILIRUBIN, [id number] 07:12:00 Test Item Value Reference Range Interpretation Comments BILIRUBIN DIRECT (BEAKER) (test 2.1 mg/dL 0.1-0.5 H code = 706) CALCIUM, [id number] 07:04:00 Test Item Value Reference Range Interpretation Comments CALCIUM IONIZED (BEAKER) (test 0.94 mmol/L 1.12-1.27 L code = 698) PH, BLOOD (BEAKER) (test code = 7.48 1810) CBC W/PLT COUNT & AUTO [id number] 07:04:00 Test Item Value Reference Range Interpretation [...] (test code = 416) BASOPHILS ABSOLUTE COUNT (AKER) 0.01 K/ L 0.01-0.08 (test code = 417) IMMATURE GRANULOCYTES-RELATIVE 2 % 0-1 H PERCENT ([facility]) (test code = 2801) [id number] 06:40:00 Test Item Value Reference Range Interpretation Comments [facility] (test code = 20.1 seconds 11.7-14.7 H 759) INR ([facility]) (test code = 370) 1.7 <=5.9 PARTIAL THROMBOPLASTIN TIME 38.9 seconds 22.5-36.0 H (AKER) (test code = 760) RECOMMENDED COUMADIN/WARFARIN INR THERAPY RANGESSTANDARD DOSE: 2.0 - 3.0 Includes: PROPHYLAXIS forvenous thrombosis, systemic embolization; TREATMENT for venous thrombosis and/or pulmonary embolus.HIGH RISK: Target INR is 2.5-3.5 for patients with mechanical heart valves.POCT-GLUCOSE [id number] 05:41:00 Test Item Value Reference Range Interpretation Comments POC-GLUCOSE METER 119 mg/dL 70-110 H TESTED AT [place] [address] ([facility]) ([facility] = [facility] [employer] 1538) [address] POCT-GLUCOSE [id number] 23:07:00 Test Item Value Reference Range Interpretation Comments POC-GLUCOSE METER 176 mg/dL 70-110 H TESTED AT [place] [address] ([facility]) (test code = [facility] 1538) [address] POCT-GLUCOSE [id number] 17:28:00 Test Item Value Reference Range Interpretation Comments POC-GLUCOSE METER 148 mg/dL 70-110 H TESTED AT [place] [address] ([facility]) (test code = [facility] 1538) [address] [id number] 16:32:00 Test Item Value Reference Range Interpretation Comments MAGNESIUM ([facility]) 3.8 mg/dL 1.6-2.6 H Specimen markedly (test code = 627) hemolyzed HEMOGLOBIN AND [id number] 16:06:00 Test Item Value Reference Range Interpretation Comments HEMOGLOBIN (BEAKER) (test code = 12.3 GM/DL 13.7-17.5 L 410) HEMATOCRIT (BEAKER) (test code = 35.2 % 40.1-51.0 L 411) POCT-GLUCOSE [id number] 13:34:00 Test Item Value Reference Range Interpretation Comments POC-GLUCOSE METER 179 mg/dL 70-110 H TESTED AT [facility] 6720 (BEAKER) (test code = [place] 1538) [address] POCT-GLUCOSE [id number] 09:10:00 Test Item Value Reference Range Interpretation Comments POC-GLUCOSE METER 172 mg/dL 70-110 H TESTED AT [facility] 6720 (BEAKER) (test code = [facility] 1538) [address] CALCIUM, [id number] 05:36:00 Test Item Value Reference Range Interpretation Comments CALCIUM IONIZED (BEAKER) (test 1.05 mmol/L 1.12-1.27 L code = 698) PH, BLOOD (BEAKER) (test code = 7.41 1810) [id number] 04:39:00 Test Item Value Reference Range Interpretation Comments PHOSPHORUS (BEAKER) (test code = 1.9 mg/dL 2.3-4.7 L 604) [id number] 04:39:00 Test Item Value Reference Range Interpretation Comments MAGNESIUM (BEAKER) (test code = 2.5 mg/dL 1.6-2.6 627) COMPREHENSIVE METABOLIC [id number] 04:39:00 Test Item Value Reference Range Interpretation [...] NOT APPLICABLE FOR DIALYSIS PATIEN TS. BILIRUBIN, [id number] 04:39:00 Test Item Value Reference Range Interpretation Comments BILIRUBIN DIRECT (BEAKER) (test 1.9 mg/dL 0.1-0.5 H code = 706) [id number] 04:26:00 Test Item Value Reference Range Interpretation [...] PERCENT (BEAKER) (test code = 2801) POCT-GLUCOSE [id number] 01:53:00 Test Item Value Reference Range Interpretation Comments POC-GLUCOSE METER 143 mg/dL 70-110 H TESTED AT [facility] 6720 (BEAKER) (test code = [place] 1538) [address] ANAEROBIC [id number] 18:23:00 Test Item Value Reference Range Interpretation Comments CULTURE (BEAKER) (test No anaerobes isolated code = 1095) TISSUE [id number] 18:18:00Surgical Pathology Report Case: [id number] Authorizing Provider: Anjel Moya MD Collected: 07/30/2018 1101 Ordering Location: [address] Received: 08/01/2018 0842 Pathologist: Bel Cid [...] see comment Signing Pathologist Direct Phone Line: [phone] signed by Bel Cid MD on 08/03/2018 [...] Sci. 2003 Mar;94(10):851-857.Intradepartmental consultation on specimen B: [id number]; 13950; 66188 x 3; 59310Cgxccthykj bowelA. Small bowel. B. Liver biopsy Specimen [...] 0.2 to 0.6 cm in greatest dimension. Naphthalene Operator sections are submitted as follows: A1, arbitrarily designated margin 1; A2, arbitrarily designated margin 2; A3, litigation claim representative mesenteric margin, en face; A4-A5, litigation claim representative full-thickness perforation; A6, A7, litigation claim representative purulent areas proximal to perforation; A8- A9, litigation claim representative bowel wall; A10, soft tissue is area of perforation; A11, three candidate lymph nodes, whole.Specimen B: Received in formalin labeled "liver biopsy" consists of two cylindrical cores of culver-white soft tissue measuring 0.1 cm in diameter and 1.1 and 1.2 cm in length, respectively. The specimen is submitted in its entirety in cassette B1. BASIL/Gilles-B. Performed.B. Section shows liver parenchyma with moderately [...] or special stains. Hepar-1; CK7; CK19; Arginase ;[employer]'sImmunohistochemistry technical testing was performed at [facility], Pathology Laboratory where it was developed [...] to perform high complexity clinical laboratory testing.POCT-GLUCOSE [id number] 17:24:00 Test Item Value Reference Range Interpretation Comments POC-GLUCOSE METER 130 mg/dL 70-110 H TESTED AT [place] [address] ([facility]) (test code = [facility] Elvia [employer] 1538) [address] POCT-GLUCOSE [id number] 12:03:00 Test Item Value Reference Range Interpretation Comments POC-GLUCOSE METER 142 mg/dL 70-110 H TESTED AT [place] [address] ([facility]) (test code = [facility] [place] [employer] 1538) [address] POCT-GLUCOSE [id number] 09:05:00 Test Item Value Reference Range Interpretation Comments POC-GLUCOSE METER 118 mg/dL 70-110 H TESTED AT [place] [address] ([facility]) (test code = [facility] 1538) [address] RAD, CHEST, 1 VIEW, NON [id number] 09:00:00Reason for exam:->pleural effusion vs atelectasisShould this [...] Tafoya Verified Date/Time: 08/03/2018 09:00:26 Reading Location: [facility] Radiology Reading Room HIV-1 ANTIGEN WITH HIV-1/2 [id number] 05:55:00 Test Item Value Reference Range Interpretation Comments HIV-1 ANTIGEN WITH HIV 1\\T\\2 Nonreactive Nonreactive ANTIBODY (2) (BEAKER) (test code = 2586) [id number] 05:54:00 Test Item Value Reference Range Interpretation Comments MAGNESIUM (BEAKER) (test code = 2.8 mg/dL 1.6-2.6 H 627) COMPREHENSIVE METABOLIC [id number] 05:54:00 Test Item Value Reference Range Interpretation [...] APPLICABLE FOR DIALYSIS PATIEN TS. BASIC METABOLIC [id number] 05:54:00 Test Item Value Reference Range Interpretation [...] NOT APPLICABLE FOR DIALYSIS PATIEN TS. BILIRUBIN, [id number] 05:54:00 Test Item Value Reference Range Interpretation Comments BILIRUBIN DIRECT (BEAKER) (test 1.9 mg/dL 0.1-0.5 H code = 706) [id number] 05:53:00 Test Item Value Reference Range Interpretation Comments PHOSPHORUS (BEAKER) (test code = 2.4 mg/dL 2.3-4.7 604) [id number] 05:40:00 Test Item Value Reference Range Interpretation Comments AMMONIA (BEAKER) (test code = 348) 50 mol/L 18-72 CALCIUM, [id number] 05:39:00 Test Item Value Reference Range Interpretation Comments CALCIUM IONIZED (BEAKER) (test 0.98 mmol/L 1.12-1.27 L code = 698) PH, BLOOD (BEAKER) (test code = 7.43 1810) [id number] 05:34:00 Test Item Value Reference Range Interpretation [...] (test code = 2801) BLOOD CULTURE IDENTIFICATION [id number] 03:38:00 Test Item Value Reference Range Interpretation Comments LISTERIA MONOCYTOGENES (test Not detected Not detected code = 4412756) STAPHYLOCOCCUS (test code = Not detected Not detected 1472365) STAPHYLOCOCCUS AUREUS (test code Not detected Not detected = 1887128) STREPTOCOCCUS (test code = Not detected Not detected 5520426) STREPTOCOCCUS AGALACTIAE (GROUP Not detected Not detected B) (test code = 1817670) STREPTOCOCCUS PNEUMONIAE (test Not detected Not detected code = 8948866) STREPTOCOCCUS PYOGENES (GROUP A) Not detected Not detected (test code = 7106571) ACINETOBACTER BAUMANNII (test Not detected Not detected code = 6383820) HAEMOPHILUS INFLUENZAE (test Not detected Not detected code = 3418223) NEISSERIA MENINGITIDIS (test Not detected Not detected code = 3092466) ENTEROBACTERIACEAE (test code = Not detected Not detected 5389607) ENTEROBACTER CLOACOE COMPLEX Not detected Not detected (test code = 4800824) KLEBSIELLA OXYTOCA (test code = Not detected Not detected 5452523) KLEBSIELLA PNEUMONIAE (test code Not detected Not detected = 1650) PROTEUS (test code = 4846256) Not detected Not detected SERRATIA MARCESCENS (test code = Not detected Not detected 3488097) NIKITA ALBICANS (test code = Not detected Not detected 0085273) NIKITA GLABRATA (test code = Not detected Not detected 5397302) NIKITA KRUSEI (test code = Not detected Not detected 6505171) NIKITA PARAPSILOSIS (test code Not detected Not detected = 2997057) NIKITA TROPICALIS (test code = Not detected Not detected 1845884) ESCHERICHIA COLI (test code = Not detected Not detected 9221487) METHICILLIN-RESISTANCE GENE Not detected (test code = 9877276) VANCOMYCIN-RESISTANCE GENE (test Not detected code = 3013346) CARBAPENEM-RESISTANCE GENE (test Not detected code = 0826689) ENTEROCOCCUS-BEAKER (test code = Not detected Not detected 1728675) PSEUDOMONAS AERUGINOSA-BEAKER Not detected Not detected (test code = 4665129) Other bacteria and resistance markers not targeted by this PCR panel cannot be excluded; therefore clinical correlation and follow up of serology, culture results, and other molecular studies is required. The results are not intended to be used as the sole means for clinical diagnosis or patient management decisions. This sample was tested at the [facility] Molecular Diagnostics Laboratory using the Transpond Blood Culture ID Panel. It is FDA cleared and has been verified and approved by the [facility] for clinical use. This laboratory is CLIA-certified and College ofAmerican Pathologists (CAP)-accredited to perform high complexity testing.POCT-GLUCOSE [id number] 00:04:00 Test Item Value Reference Range Interpretation Comments POC-GLUCOSE METER 128 mg/dL 70-110 H TESTED AT [facility] 6720 (BEAKER) (test code = [place] [employer] 1538) [address] BODY FLUID CELL COUNT WITH [id number] 18:55:00 Test Item Value Reference Range Interpretation Comments APPEARANCE FLUID (BEAKER) (test Cloudy Clear A code = 510) COLOR FLUID (BEAKER) (test code [place] Colorless, Straw A = 511) RBC FLUID (BEAKER) (test code = 28052 /cu mm <=1 H 513) ADJUSTED WBC [...] 2873) Intracellular bacteria seen on stained smear.POCT-GLUCOSE [id number] 18:04:00 Test Item Value Reference Range Interpretation Comments POC-GLUCOSE METER 119 mg/dL 70-110 H TESTED AT [facility] 6720 (BEAKER) (test code = [place] Gan [employer] 1538) [address] U/S, [id number] 17:02:00Reason for exam:->poss bile leakShould this be [...] was removed. Signed: Nadege Arriaga MDReport Verified Date/Time: 08/02/2018 17:02:52 Reading Location: [address] Ultrasound Reading Room MAGNESIUM 2018-08-02 13:04:00 Test Item Value Reference Range Interpretation Comments MAGNESIUM (TAMY) 3.0 mg/dL 1.6-2.6 H Specimen slightly (test code = 627) hemolyzed POCT-GLUCOSE [id number] 12:43:00 Test Item Value Reference Range Interpretation Comments POC-GLUCOSE METER 146 mg/dL 70-110 H TESTED AT [facility] 6720 ([facility]) (test code = [facility] 1538) [address] HEPATITIS C PCR, [id number] 08:53:00 Test Item Value Reference Range Interpretation Comments HCV NUMERIC RESULT (TAMY) 4719777 IU/mL <15 H (test code = 2700) This test uses a Real-Time Polymerase Chain Reaction (RT-PCR) methodology and was performed using JOY Ampliprep/JOY TaqMan HCV test kit version 2.0 ([employer]).Reportable range for this assay is [...] IMPRESSION: No significant change. Signed: Jani Aiken MDReport Verified Date/Time: 08/02/2018 08:35:29 Reading Location: [facility] Radiology Reading Room URINALYSIS W/ [id number] 07:15:00 Test Item Value Reference Range Interpretation [...] SOURCE(BEAKER) (test code Urine, Clean Catch = 2795) CALCIUM, [id number] 06:57:00 Test Item Value Reference Range Interpretation Comments CALCIUM IONIZED (BEAKER) (test 1.04 mmol/L 1.12-1.27 L code = 698) PH, BLOOD (BEAKER) (test code = 7.27 1810) COMPREHENSIVE METABOLIC [id number] 06:43:00 Test Item Value Reference Range Interpretation [...] APPLICABLE FOR DIALYSIS PATIEN TS. BASIC METABOLIC [id number] 06:43:00 Test Item Value Reference Range Interpretation [...] S NOT APPLICABLE FOR DIALYSIS PATIEN TS. [id number] 06:42:00 Test Item Value Reference Range Interpretation Comments MAGNESIUM (BEAKER) 3.2 mg/dL 1.6-2.6 H Specimen slightly (test code = 627) hemolyzed [id number] 06:42:00 Test Item Value Reference Range Interpretation Comments PHOSPHORUS (BEAKER) 4.1 mg/dL 2.3-4.7 Specimen slightly (test code = 604) hemolyzed BILIRUBIN, [id number] 06:42:00 Test Item Value Reference Range Interpretation [...] pg/mL 0-100 H (test code = 700) [id number] 06:27:00 Test Item Value Reference Range Interpretation [...] PERCENT (BEAKER) (test code = 2801) POCT-GLUCOSE [id number] 06:23:00 Test Item Value Reference Range Interpretation Comments POC-GLUCOSE METER 125 mg/dL 70-110 H TESTED AT [place] [address] (BEAKER) (test code = [facility] 1538) [address] CREATININE, RANDOM [id number] 06:01:00 Test Item Value Reference Range Interpretation Comments CREATININE URINE (BEAKER) (test 110.8 mg/dL code = 375) Reference Range: No NormalsPROTEIN, RANDOM [id number] 06:01:00 Test Item Value Reference Range Interpretation Comments PROTEIN, URINE (BEAKER) (test code = 33 mg/dL 0-14 H 1569) POCT-GLUCOSE [id number] 05:48:00 Test Item Value Reference Range Interpretation Comments POC-GLUCOSE METER 115 mg/dL 70-110 H TESTED AT [place] [address] (BEAKER) (test code = [facility] 1538) [address] BASIC METABOLIC [id number] 18:13:00 Test Item Value Reference Range Interpretation [...] S NOT APPLICABLE FOR DIALYSIS PATIEN TS. [id number] 18:05:00 Test Item Value Reference Range Interpretation Comments MAGNESIUM (BEAKER) (test code = 2.9 mg/dL 1.6-2.6 H 627) RAD, CHEST, 1 VIEW, NON [id number] 17:57:00Reason for exam:->picc repositionShould this be performed [...] MDReport Verified Date/Time: 08/01/2018 17:57:36 Reading Location: [facility] Radiology Reading Room -GLUCOSE [id number] 17:36:00 Test Item Value Reference Range Interpretation Comments POC-GLUCOSE METER 140 mg/dL 70-110 H TESTED AT [facility] 6720 (BEAKER) (test code = [place] 1538) [address] POCT-GLUCOSE [id number] 17:35:00 Test Item Value Reference Range Interpretation Comments POC-GLUCOSE METER 137 mg/dL 70-110 H TESTED AT [place] [address] ([facility]) (test code = [facility] 1538) [address] SURGICALLY OBTAINED CULTURE + GRAM [id number] 15:10:00 Test Item Value Reference Range Interpretation Comments CULTURE ([facility]) (test ESCHERICHIA COLI A < 1+ Escherichia [...] 47) GRAM STAIN RESULT <1+ White blood ([facility]) (test code = cells seen 1123) GRAM STAIN RESULT No organisms seen ([facility]) (test code = 387939) POCT-GLUCOSE [id number] 12:06:00 Test Item Value Reference Range Interpretation Comments POC-GLUCOSE METER 135 mg/dL 70-110 H TESTED AT [place] [address] ([facility]) (test code = [facility] 1538) [address] [place] TITER AND [id number] 10:10:00 Test Item Value Reference Range Interpretation Comments JUAN DIEGO TITER ([facility]) (test code = :160 1541) JUAN DIEGO PATTERN ([facility]) (test code = Speckled 1781) ANTI-NUCLEAR ANTIBODY (JUAN DIEGO)2018-08-01 10:09:00 Test Item Value Reference Range Interpretation Comments ANTI-NUCLEAR ANTIBODY (J[place]AN [place]IEGO) ([facility]) Positive Negative A (test code = 418) Test performed by IFA method.CBC W/PLT COUNT & AUTO [id number] 08:55:00 Test Item Value Reference Range Interpretation [...] Otherwise, noacute cardiopulmonary abnormalities. Signed: Efren Rosas Verified Date/Time: 08/01/2018 08:44:53 Reading Location: [facility] Radiology Reading Room POCT-GLUCOSE [id number] 06:35:00 Test Item Value Reference Range Interpretation Comments POC-GLUCOSE METER 133 mg/dL 70-110 H TESTED AT [facility] 6720 (BEAKER) (test code = [place] 1538) [address] CALCIUM, [id number] 06:28:00 Test Item Value Reference Range Interpretation Comments CALCIUM IONIZED (BEAKER) (test 1.11 mmol/L 1.12-1.27 L code = 698) PH, BLOOD (BEAKER) (test code = 7.30 1810) HEPATITIS B CORE ANTIBODY, [id number] 06:19:00 Test Item Value Reference Range Interpretation Comments HEPATITIS B CORE TOTAL ANTIBODY Reactive Nonreactive A (BEAKER) (test code = 497) COMPREHENSIVE METABOLIC [id number] 05:12:00 Test Item Value Reference Range Interpretation [...] S NOT APPLICABLE FOR DIALYSIS PATIEN TS. [id number] 05:05:00 Test Item Value Reference Range Interpretation Comments PHOSPHORUS (BEAKER) (test code = 5.6 mg/dL 2.3-4.7 H 604) [id number] 05:05:00 Test Item Value Reference Range Interpretation Comments MAGNESIUM (BEAKER) (test code = 2.9 mg/dL 1.6-2.6 H 627) BILIRUBIN, [id number] 05:05:00 Test Item Value Reference Range Interpretation Comments BILIRUBIN DIRECT (BEAKER) (test 2.0 mg/dL 0.1-0.5 H code = 706) LACTIC ACID, VENOUS, WHOLE [id number] 04:48:00 Test Item Value Reference Range Interpretation Comments LACTATE BLOOD VENOUS (2) (BEAKER) 1.3 mmol/L 0.5-2.2 (test code = 2872) [id number] 04:46:00 Test Item Value Reference Range Interpretation [...] patients with mechanical heart valves.HEPATITIS B SURFACE [id number] 03:55:00 Test Item Value Reference Range Interpretation Comments HEPATITIS B SURFACE ANTIBODY < mIU/mL <8.0 (BEAKER) (test code = 647) BASIC METABOLIC [id number] 02:50:00 Test Item Value Reference Range Interpretation [...] FOR DIALYSIS PATIEN TS. Specimen slightly ictericPOCT-GLUCOSE [id number] 01:55:00 Test Item Value Reference Range Interpretation Comments POC-GLUCOSE METER 141 mg/dL 70-110 H TESTED AT [place] [address] ([facility]) ([facility] = [facility] [place] 1538) [address] TROPONIN [id number] 01:09:00 Test Item Value Reference Range Interpretation Comments TROPONIN I (BEAKER) (test code = 0.01 ng/mL 0.00-0.03 397) [...] Value Reference Range Interpretation Comments ALPHA-FETOPROTEIN (BEAKER) (test 8541.3 ng/mL <10.0 H code = 1094) POCT-GLUCOSE [id number] 00:08:00 Test Item Value Reference Range Interpretation Comments POC-GLUCOSE METER 122 mg/dL 70-110 H TESTED AT [facility] 6720 ([facility]) (test code = [place] 1538) [address] [id number] 22:55:00 Test Item Value Reference Range Interpretation Comments TRIGLYCERIDES (BEAKER) (test code = 53 mg/dL 540) TRIGLYCERIDE REFERENCE RANGELow Risk <150Borderline Risk 150-199High Risk 200-499Very High Risk>=500Specimen slightly ictericC-REACTIVE PROTEIN 2018-07-31 22:55:00 Test Item Value Reference Range Interpretation Comments C-REACTIVE PROTEIN (BEAKER) (test 20.08 mg/dL 0.00-0.50 H code = 676) CARCINOEMBRYONIC ANTIGEN (CEA)2018-07-31 22:48:00 Test Item Value Reference Range Interpretation Comments CARCINOEMBRYONIC ANTIGEN (BEAKER) 1.9 ng/mL 0.0-5.0 (test code = 685) HEPATITIS A ANTIBODY, [id number] 22:48:00 Test Item Value Reference Range Interpretation Comments HEPATITIS A IGG ANTIBODY (BEAKER) Nonreactive Nonreactive (test code = 2797) HEPATITIS B SURFACE [id number] 22:43:00 Test Item Value Reference Range Interpretation Comments HEPATITIS B SURFACE ANTIGEN (2) Nonreactive Nonreactive (BEAKER) (test code = 2585) [id number] 22:23:00 Test Item Value Reference Range Interpretation Comments ALPHA-1 ANTITRYPSIN (BEAKER) 258.30 mg/dL 90.00-200.00 H (test code = 502) LACTIC ACID, ARTERIAL, WHOLE [id number] 22:05:00 Test Item Value Reference Range Interpretation Comments LACTATE BLOOD ARTERIAL (2) 1.4 mmol/L 0.5-2.2 (BEAKER) (test code = 2874) POCT-GLUCOSE [id number] 19:22:00 Test Item Value Reference Range Interpretation Comments POC-GLUCOSE METER 101 mg/dL 70-110 TESTED AT [facility] 6720 (BEAKER) (test code = JOHANA SNYDER 1538) [address] IRON, TIBC, % SAT. (WITHOUT FERRITIN)2018-07-31 18:03:00 Test Item Value Reference Range Interpretation Comments IRON (BEAKER) (test code = 547) 10.0 ug/dL 40.0-160.0 L TOTAL IRON BINDING CAPACITY 83 ug/dL 250-450 L (BEAKER) (test code = 769) IRON % SATURATION (2) (BEAKER) 12 % 20-55 L (test code = 2590) LACTIC ACID, ARTERIAL, WHOLE [id number] 17:56:00 Test Item Value Reference Range Interpretation Comments LACTATE BLOOD 1.8 mmol/L 0.5-2.2 Specimen sligh tly ARTERIAL (2) (BEAKER) hemoly zed (test code = 2874) [id number] 17:10:00 Test Item Value Reference Range Interpretation Comments FERRITIN (BEAKER) (test code = 361) 485 ng/mL 5-275 H U/S, ABDOMINAL, WITH [id number] 17:05:00Reason for exam:->cirrhosis Should this be performed [...] MDReport Verified Date/Time: 07/31/2018 17:05:57 Reading Location: [facility] B1 C013X Ortho Consult Reading Room Electronically signed by: CUCO PASTRANA MD on 2018 05:05 PMVANCOMYCIN LEVEL, [id number] 16:50:00 Test Item Value Reference Range Interpretation Comments VANCOMYCIN TROUGH (BEAKER) (test 40.6 ug/mL 10.0-20.0 HH code = 522) [id number] 16:41:00 Test Item Value Reference Range Interpretation Comments MAGNESIUM (BEAKER) (test code = 2.5 mg/dL 1.6-2.6 627) RAD, CHEST, 1 VIEW, NON [id number] 16:05:00Reason for exam:->PICC LINE PLACEMENTShould this be performed at the bedside?->YesFINAL REPORT Comparison: 07/31/2018 at 4:17 AM TECHNIQUE: Single view of the ch est FINDINGS: Tip of the recently placed left PICC line projects at the cavoatrial junction. Endotracheal tube has been removed. No other significant change. Signed: Armen Peck MDReport Verified Date/Time: 07/31/2018 16:05:05 Reading Location: [address] Consult Reading Room OSMOLALITY, [id number] 15:05:00 Test Item Value Reference Range Interpretation Comments OSMOLALITY URINE (BEAKER) (test 379 mOsm/kg 40-1,400 code = 614) SODIUM, RANDOM [id number] 13:13:00 Test Item Value Reference Range Interpretation Comments SODIUM URINE (BEAKER) (test code = < meq/L 243) Reference Range: No NormalsCREATININE, RANDOM [id number] 13:07:00 Test Item Value Reference Range Interpretation Comments CREATININE URINE (BEAKER) (test 166.7 mg/dL code = 375) Reference Range: No NormalsUREA NITROGEN, RANDOM [id number] 13:07:00 Test Item Value Reference Range Interpretation Comments UREA NITROGEN URINE (BEAKER) (test 464 mg/dL code = 538) Reference Range: No NormalsPOCT-GLUCOSE [id number] 12:11:00 Test Item Value Reference Range Interpretation Comments POC-GLUCOSE METER 110 mg/dL 70-110 TESTED AT [facility] 6720 (BEAKER) (test code = JOHANA SNYDER 1538) [address] OSMOLALITY, [id number] 11:25:00 Test Item Value Reference Range Interpretation Comments OSMOLALITY, SERUM (BEAKER) (test 301 mOsm/kg 275-295 H code = 615) BASIC METABOLIC [id number] 10:31:00 Test Item Value Reference Range Interpretation [...] DIALYSIS PATIEN TS. Specimen slightly ictericHEPATIC FUNCTION [id number] 10:27:00 Test Item Value Reference Range Interpretation [...] 347) Specimen slightly ictericLACTIC ACID, ARTERIAL, WHOLE [id number] 10:22:00 Test Item Value Reference Range Interpretation Comments LACTATE BLOOD ARTERIAL (2) 2.1 mmol/L 0.5-2.2 (BEAKER) (test code = 2874) Specimen slightly ictericRAD, CHEST, 1 VIEW, NON [id number] 08:05:00Reason for exam:->Intubated patientShould this be performed [...] MDReport Verified Date/Time: 07/31/2018 08:05:10 Reading Location: [facility] C013X Ortho Consult Reading Room CBC W/PLT COUNT & AUTO [id number] 08:03:00 Test Item Value Reference Range Interpretation [...] Received comment: User comments: Slide comments:BLOOD GAS, [id number] 07:09:00 Test Item Value Reference Range Interpretation [...] (BEAKER) (test code = 1819) 21.0 % [id number] 05:25:00 Test Item Value Reference Range Interpretation Comments PREALBUMIN (BEAKER) (test code = 586) 4 mg/dL 14-45 L [id number] 04:43:00 Test Item Value Reference Range Interpretation [...] 0.5-2.2 H (BEAKER) (test code = 2874) [id number] 04:37:00 Test Item Value Reference Range Interpretation Comments PHOSPHORUS (BEAKER) (test code = 6.9 mg/dL 2.3-4.7 H 604) [id number] 04:37:00 Test Item Value Reference Range Interpretation Comments MAGNESIUM (BEAKER) (test code = 2.1 mg/dL 1.6-2.6 627) [id number] 04:37:00 Test Item Value Reference Range Interpretation Comments ALBUMIN (BEAKER) (test code = 1145) 2.6 g/dL 3.5-5.0 L BASIC METABOLIC [id number] 04:37:00 Test Item Value Reference Range Interpretation [...] DIALYSIS PATIEN TS. Specimen slightly ictericBLOOD GAS, [id number] 04:36:00 Test Item Value Reference Range Interpretation [...] (test code = 1819) 40.0 % CALCIUM, [id number] 04:36:00 Test Item Value Reference Range Interpretation Comments CALCIUM IONIZED (BEAKER) (test 1.01 mmol/L 1.12-1.27 L code = 698) PH, BLOOD (BEAKER) (test code = 7.32 1810) BLOOD CULTURE IDENTIFICATION [id number] 03:17:00 Test Item Value Reference Interpretation Comments Range LISTERIA MONOCYTOGENES Not detected Not detected (test code = 2248526) STAPHYLOCOCCUS (test Detected Not detected A First l ine therapy: code = 6089703) Cefazolin, N afcillin (Nafcillin pref erred for Central Ner vous System infecti on) Coagulase Negat ritu Staphylococcus (CoNS) DETECTEDmecA NO T DETECTEDReferen ce Range: Not Dete cted STAPHYLOCOCCUS AUREUS Not detected Not detected (test code = 0124125) STREPTOCOCCUS (test Not detected Not detected code = 7942191) STREPTOCOCCUS Not detected Not detected AGALACTIAE (GROUP B) (test code = 5491010) STREPTOCOCCUS Not detected Not detected PNEUMONIAE (test code = 5300361) STREPTOCOCCUS PYOGENES Not detected Not detected (GROUP A) (test code = 0163625) ACINETOBACTER BAUMANNII Not detected Not detected (test code = 9041088) HAEMOPHILUS INFLUENZAE Not detected Not detected (test code = 5626216) NEISSERIA MENINGITIDIS Not detected Not detected (test code = 0669339) ENTEROBACTERIACEAE Not detected Not detected (test code = 6268047) ENTEROBACTER CLOACOE Not detected Not detected COMPLEX (test code = 0910320) KLEBSIELLA OXYTOCA Not detected Not detected (test code = 1446775) KLEBSIELLA PNEUMONIAE Not detected Not detected (test code = 1650) PROTEUS (test code = Not detected Not detected 5836380) SERRATIA MARCESCENS Not detected Not detected (test code = 9045522) NIKITA ALBICANS (test Not detected Not detected code = 3055005) NIKITA GLABRATA (test Not detected Not detected code = 8690769) NIKITA KRUSEI (test Not detected Not detected code = 4167034) NIKITA PARAPSILOSIS Not detected Not detected (test code = 9764197) NIKITA TROPICALIS Not detected Not detected (test code = 7132132) ESCHERICHIA COLI (test Not detected Not detected code = 1926970) METHICILLIN-RESISTANCE Not detected Not detected GENE (test code = 1840311) VANCOMYCIN-RESISTANCE Not detected GENE (test code = 1038491) CARBAPENEM-RESISTANCE Not detected GENE (test code = 2593300) ENTEROCOCCUS-BEAKER Not detected Not detected (test code = 0708717) PSEUDOMONAS Not detected Not detected AERUGINOSA-BEAKER (test code = 5152659) Other bacteria and resistance markers not targeted by this PCR panel cannot be excluded; therefore clinical correlation and follow up of serology, culture results, and other molecular studies is required. The results are not intended to be used as the sole means for clinical diagnosis or patient management decisions. This sample was tested at the [facility] Molecular Diagnostics Laboratory using the Transpond Blood Culture ID Panel. It is FDA cleared and has been verified and approved by the [facility] for clinical use. This laboratory is CLIA-certified and College ofAmerican Pathologists (CAP)-accredited to perform high complexity testing.BASIC METABOLIC [id number] 01:44:00 Test Item Value Reference Range Interpretation [...] S NOT APPLICABLE FOR DIALYSIS PATIEN TS. [id number] 01:40:00 Test Item Value Reference Range Interpretation Comments MAGNESIUM (BEAKER) (test code = 1.9 mg/dL 1.6-2.6 627) [id number] 01:37:00 Test Item Value Reference Range Interpretation Comments MAGNESIUM (BEAKER) (test code = 1.9 mg/dL 1.6-2.6 627) HEMOGLOBIN AND [id number] 00:58:00 Test Item Value Reference Range Interpretation Comments HEMOGLOBIN (BEAKER) (test code = 15.3 GM/DL 13.7-17.5 410) HEMATOCRIT (BEAKER) (test code = 45.5 % 40.1-51.0 411) HEMOGLOBIN AND [id number] 00:58:00 Test Item Value Reference Range Interpretation Comments HEMOGLOBIN (BEAKER) (test code = 15.3 GM/DL 13.7-17.5 410) HEMATOCRIT (BEAKER) (test code = 45.5 % 40.1-51.0 411) POCT-GLUCOSE [id number] 23:40:00 Test Item Value Reference Range Interpretation Comments POC-GLUCOSE METER 119 mg/dL 70-110 H TESTED AT [place] [address] ([facility]) (test code = J[place]ANA [place] 1538) [address] LACTIC ACID, ARTERIAL, WHOLE [id number] 23:38:00 Test Item Value Reference Range Interpretation Comments LACTATE BLOOD ARTERIAL (2) 2.8 mmol/L 0.5-2.2 H (BEAKER) (test code = 2874) CALCIUM, [id number] 23:22:00 Test Item Value Reference Range Interpretation Comments CALCIUM IONIZED (BEAKER) (test 0.97 mmol/L 1.12-1.27 L code = 698) PH, BLOOD (BEAKER) (test code = 7.35 1810) POCT-GLUCOSE [id number] 21:40:00 Test Item Value Reference Range Interpretation Comments POC-GLUCOSE METER 109 mg/dL 70-110 TESTED AT [place] [address] ([facility]) (test code = [facility] [place] 1538) [address] LACTIC ACID, ARTERIAL, WHOLE [id number] 19:44:00 Test Item Value Reference Range Interpretation Comments LACTATE BLOOD 2.4 mmol/L 0.5-2.2 H Specimen sligh tly ARTERIAL (2) (BEAKER) hemoly zed (test code = 2874) BLOOD GAS, [id number] 16:39:00 Test Item Value Reference Range Interpretation [...] code = 1819) 40.0 % BASIC METABOLIC [id number] 15:08:00 Test Item Value Reference Range Interpretation [...] TS. Specimen slightly ictericLACTIC ACID, VENOUS, WHOLE [id number] 15:07:00 Test Item Value Reference Range Interpretation Comments LACTATE BLOOD VENOUS (2) (BEAKER) 2.4 mmol/L 0.5-2.2 H (test code = 2872) [id number] 15:06:00 Test Item Value Reference Range Interpretation Comments MAGNESIUM (BEAKER) 2.1 mg/dL 1.6-2.6 Specimen slightly (test code = 627) hemolyzed [id number] 15:06:00 Test Item Value Reference Range Interpretation Comments PHOSPHORUS (BEAKER) 6.9 mg/dL 2.3-4.7 H Specimen slightly (test code = 604) hemolyzed BLOOD GAS, [id number] 15:05:00 Test Item Value Reference Range Interpretation [...] = 413) RAD, CHEST, 1 VIEW, NON [id number] 13:33:00Reason for exam:- >IntubatedShould this be performed [...] MDReport Verified Date/Time: 07/30/2018 13:33:24 Reading Location: [address] Neuro Reading Room POCT-GLUCOSE [id number] 12:53:00 Test Item Value Reference Range Interpretation Comments POC-GLUCOSE METER 119 mg/dL 70-110 H TESTED AT [facility] 6720 (BEAKER) (test code = JOHANA Gan [employer] 1538) [address] CALCIUM, [id number] 10:43:00 Test Item Value Reference Range Interpretation Comments CALCIUM IONIZED (BEAKER) (test 0.87 mmol/L 1.12-1.27 L code = 698) PH, BLOOD (BEAKER) (test code = 7.32 1810) BLOOD GAS, [id number] 10:42:00 Test Item Value Reference Range Interpretation [...] code = 1819) 100.0 % SODIUM NA-STAT [id number] 10:42:00 Test Item Value Reference Range Interpretation Comments SODIUM (BEAKER) (test code = 381) 127 meq/L 135-148 L POTASSIUM-STAT [id number] 10:42:00 Test Item Value Reference Range Interpretation Comments POTASSIUM (BEAKER) (test code = 3.3 meq/L 3.6-5.5 L 379) HGB/HCT (H&H) - STAT [id number] 10:42:00 Test Item Value Reference Range Interpretation Comments HEMOGLOBIN (BEAKER) (test code = 14.6 g/dL 13.0-16.8 410) HEMATOCRIT (BEAKER) (test code = 43.0 % 40.0-50.0 411) GLUCOSE-STAT [id number] 10:40:00 Test Item Value Reference Range Interpretation Comments GLUCOSE RANDOM (BEAKER) (test code = 93 mg/dL 70-110 652) OSMOLALITY, [id number] 08:45:00 Test Item Value Reference Range Interpretation Comments OSMOLALITY URINE (BEAKER) (test 368 mOsm/kg 40-1,400 code = 614) CBC W/PLT COUNT & AUTO [id number] 07:28:00 Test Item Value Reference Range Interpretation [...] Received comment: User comments: Slide comments:SODIUM, RANDOM [id number] 07:26:00 Test Item Value Reference Range Interpretation Comments SODIUM URINE (BEAKER) (test code = < meq/L 243) Reference Range: No NormalsCREATININE, RANDOM [id number] 07:16:00 Test Item Value Reference Range Interpretation Comments CREATININE URINE (BEAKER) (test 131.7 mg/dL code = 375) Reference Range: No NormalsTROPONIN [id number] 07:09:00 Test Item Value Reference Range Interpretation [...] and persistent tachyarrhythmia.RAD, CHEST, 1 VIEW, NON [id number] 07:05:00Reason for exam:->right lung consolidationShould this be [...] of under inspiration.Additional findings: None. Signed: JR Felton Robert MDReport Verified Date/Time: 07/30/2018 07:05:02 Reading Location: [facility] C0[facility] Neuro Reading Room [id number] 06:53:00 Test Item Value Reference Range Interpretation Comments PROCALCITONIN (BEAKER) (test code 9.52 ng/mL <0.05 H = 3036) SEPSIS RISK (ng/mL)Low: 0.05-0.50Intermediate: 0.51-2.00High: >=2.01LACTIC ACID, VENOUS, WHOLE [id number] 06:41:00 Test Item Value Reference Range Interpretation Comments LACTATE BLOOD VENOUS 6.6 mmol/L 0.5-2.2 H Specime n moderately (2) (BEAKER) (test hemolyzed code = 2872) BLOOD GAS, [id number] 06:39:00 Test Item Value Reference Range Interpretation [...] (test code = 1819) 100.0 % POCT-GLUCOSE [id number] 06:32:00 Test Item Value Reference Range Interpretation Comments POC-GLUCOSE METER 123 mg/dL 70-110 H TESTED AT [facility] 6720 (BEAKER) (test code = JOHANA Gan [employer] 1538) [address] RAD, ABDOMEN/KUB, 1 VIEW [id number] 06:03:00Reason for exam:->abdominal distension/ NGT placementShould this [...] pelvis. Visualized osseous structures are unremarkable. Signed: Yaidra Austin MDReport Verified Date/Time: 07/30/2018 06:03:17 Reading Location: [facility] C0[facility] Transitional Reading Room [id number] 05:33:00 Test Item Value Reference Range Interpretation [...] is 2.5-3.5 for patients with mechanical heart valves.[id number] 05:24:00 Test Item Value Reference Range Interpretation Comments MAGNESIUM (BEAKER) 2.0 mg/dL 1.6-2.6 Specimen slightly (test code = 627) hemolyzed [id number] 05:24:00 Test Item Value Reference Range Interpretation Comments PHOSPHORUS (BEAKER) 6.9 mg/dL 2.3-4.7 H Specimen slightly (test code = 604) hemolyzed COMPREHENSIVE METABOLIC [id number] 05:24:00 Test Item Value Reference Range Interpretation [...] APPLICABLE FOR DIALYSIS PATIEN TS. Specimen slightly [id number] 05:24:00 Test Item Value Reference Range Interpretation Comments AMYLASE (BEAKER) (test 59 U/L 25-125 Speci men slightly code = 349) hemolyzed Specimen slightly [id number] 05:24:00 Test Item Value Reference Range Interpretation Comments LIPASE (BEAKER) (test code = 749) 86 U/L 8-78 H Specimen slightly ictericLACTIC ACID, VENOUS, WHOLE [id number] 05:20:00 Test Item Value Reference Range Interpretation Comments LACTATE BLOOD VENOUS 5.6 mmol/L 0.5-2.2 H Specime n markedly (2) (BEAKER) (test hemolyzed code = 5025)
[2020-07-29] MEDS ORDERED: ONDANSETRON 4 MG/2 ML VIAL ONE (23:24)
[2020-07-29] MEDS ORDERED: MORPHINE 4 MG/ML SYR ONE (23:24)
[2020-07-29] MEDS ORDERED: NA CHLORIDE 0.9% 1,000 ML ONE (23:24)
[2020-07-29 23:44] LABS: Absolute Lymphocytes (CBC) 0.7 K/uL (0.7-4.9); Basophils % 0.3 % (0-1.3); Hematocrit 42.6 % (39.6-49.0); MPV 8.7 fL (7.6-11.3); RBC Red Blood Cell Count 5.18 M/uL (4.33-5.43)
[2020-07-30 00:18] LABS: Albumin 2.2 g/dL (3.4-5.0); Bilirubin Direct 3.3 mg/dL (0-0.2); Potassium 3.6 mmol/L (3.5-5.1); Protein, Total 7.4 g/dL (6.4-8.2)
[2020-07-30 00:20] LABS: Bilirubin Total 5.1 mg/dL (0.2-1.0)
[2020-07-30] MEDS ORDERED: FENTANYL CITR 100 MCG/2 ML ONE (00:41)
[2020-07-30 01:11] LABS: Anisocytosis 2+; Blood Morphology Comment NOTED (NOT SEEN); Hypochromasia 2+; Platelet Estimate ADEQ; White Blood Cell Scan OK (OK)
--- NOTE | 2020-07-30 02:06 | ER ---
Nurse's Notes [facility] Name: Onel Mancuso Age: 60 yrs Sex: Male : 1960 Arrival Date: 07/29/2020 Time: 21:59 Bed 13 Private MD: Diagnosis: Ascites;Other cirrhosis of liver;Abdominal tenderness;chronic abdominal pain Presentation: 07/29 22:04 Chief complaint: Patient states: Abd pain and swelling for 3 months. History of ll1 cirrhosis. Coronavirus screen: Client denies travel out of the [place] in the last 14 days. At this time, the client does not indicate any symptoms associated with coronavirus-19. Ebola Screen: Patient denies travel to an Ebola-affected area in the 21 days before illness onset. Initial Sepsis Screen: Does the patient meet any 2 criteria? HR > 90 bpm. No. Patient's initial sepsis screen is negative. Does the patient have a suspected source of infection? Yes: Acute abdominal pain. Risk Assessment: Do you want to hurt yourself or someone else? Patient reports no desire to harm self or others. Onset of symptoms was May 07, 2020. 22:04 Method Of Arrival: Ambulatory [facility] 22:04 Acuity: DANIKA 2 ll1 Historical: - Allergies: 22:07 No Known Allergies; ll1 - PMHx: 22:07 Cirrhosis; Hepatitis; Hypertension; ll1 - PSHx: 22:07 abdominal surgery x 3; right femur; neck; back; foot; Bowel resection; ll1 - Immunization history:: Flu vaccine is not up to date. - Social history:: Smoking status: Patient reports the use of cigarette tobacco products, smokes one pack cigarettes per day. Screenin:15 Abuse screen: Denies threats or abuse. Nutritional screening: No deficits noted. jb4 Tuberculosis screening: No symptoms or risk factors identified. Fall Risk None identified. Assessment: 22:30 General: Appears in no apparent distress. uncomfortable, Behavior is calm, cooperative, jb4 appropriate for age. Pain: Complains of pain in abdomen Pain does not radiate. Pain currently is 10 out of 10 on a pain scale. Neuro: Level of Consciousness is awake, alert, obeys commands, Oriented to person, place, time, situation. Cardiovascular: Patient's skin is warm and dry. Respiratory: Airway is patent Respiratory effort is even, unlabored, Respiratory pattern is regular, symmetrical. GI: Abdomen is round distended, Abd is soft X 4 quads Abdomen is tender to palpation X 4 quads. : No signs and/or symptoms were reported regarding the genitourinary system. EENT: No signs and/or symptoms were reported regarding the EENT system. Derm: Skin is intact, Skin is pink, warm \T\ dry. Musculoskeletal: Circulation, motion, and sensation intact. Range of motion: intact in all extremities. 23:27 Reassessment: Patient appears in no apparent distress at this time. Patient and/or jb4 family updated on plan of care and expected duration. Pain level reassessed. Patient is alert, oriented x 3, equal unlabored respirations, skin warm/dry/pink. 07/30 00:30 Reassessment: Patient appears in no apparent distress at this time. Patient and/or jb4 family updated on plan of care and expected duration. Pain level reassessed. Patient is alert, oriented x 3, equal unlabored respirations, skin warm/dry/pink. 01:14 Reassessment: Patient appears in no apparent distress at this time. Patient and/or jb4 family updated on plan of care and expected duration. Pain level reassessed. Patient is alert, oriented x 3, equal unlabored respirations, skin warm/dry/pink. 02:32 Reassessment: Patient appears in no apparent distress at this time. Patient and/or jb4 family updated on plan of care and expected duration. Pain level reassessed. Patient is alert, oriented x 3, equal unlabored respirations, skin warm/dry/pink. Vital Signs: 07/29 22:04 BP 144 / 88; Pulse 100; Resp 20; Temp 98.3; Pulse Ox 97% ; Pain 10/10; ll1 23:15 BP 163 / 83; Pulse 95; Resp 16; Pulse Ox 97% on R/A; jb4 07/30 00:00 BP 159 / 92; Pulse 96; Resp 16; Pulse Ox 97% on R/A; jb4 01:10 BP 167 / 72; Pulse 93; Resp 18; Pulse Ox 96% on R/A; jb4 02:15 BP 156 / 83; Pulse 90; Resp 18; Pulse Ox 98% on R/A; jb4 ED Course: 07/29 21:59 Patient arrived in ED. cf2 22:06 Triage completed. ll1 22:06 Arm band placed on Patient placed in an exam room, on a stretcher. ll1 22:40 Adria Torres MD is Attending Physician. tw4 22:48 Hunter Mazariegos, RN is Primary Nurse. jb4 23:15 Patient has correct armband on for positive identification. Bed in low position. Call [facility] light in reach. Side rails up X 1. Pulse ox on. NIBP on. 23:15 Initial lab(s) drawn, by me, sent to lab. Inserted saline lock: 20 gauge in right jb4 antecubital area, using aseptic technique. Blood collected. 07/30 00:18 Notified ED physician of a critical lab result(s). total bilirubin of 5.1 Dr Melissa brower notified. 00:46 CT Abd/Pelvis - IV Contrast Only In Process Unspecified. EDMS 02:15 No provider procedures requiring assistance completed. IV discontinued, intact, jb4 bleeding controlled, No redness/swelling at site. Pressure dressing applied. Administered Medications: 07/29 23:20 Drug: NS 0.9% 1000 ml Route: IV; Rate: 1 bolus; Site: right antecubital; 4 07/30 00:30 Follow up: Response: No adverse reaction; IV Status: Completed infusion; IV Intake: jb4 1000ml 07/29 23:20 Drug: morphine 4 mg Route: IVP; Site: right antecubital; jb4 07/30 00:00 Follow up: Response: No adverse reaction; Pain is decreased; RASS: Alert and Calm (0) 4 07/29 23:20 Drug: Zofran (Ondansetron) 4 mg Route: IVP; Site: right antecubital; 4 07/30 02:36 Follow up: Response: No adverse reaction jb4 00:28 Drug: fentaNYL (PF) 25 mcg Route: IVP; Site: right forearm; jb4 01:00 Follow up: Response: No adverse reaction; Pain is decreased; RASS: Alert and Calm (0) 4 Intake: 00:30 IV: 1000ml; Total: 1000ml. jb4 Outcome: 02:05 Discharge ordered by . tw4 02:15 Discharged to home ambulatory. jb4 02:15 Condition: stable 02:15 Discharge instructions given to patient, Instructed on discharge instructions, follow up and referral plans. medication usage, Demonstrated understanding of instructions, follow-up care, medications, Prescriptions given X 1. 02:38 Patient left the ED. jb4 Signatures: Dispatcher [employer] EDJanie Sinha, RN RN Hunter Reece RN RN jb4 Adria Torres MD MD tw4 Von Jennings 2 Karla Owen RN RN ll1 Corrections: (The following items were deleted from the chart) 02:38 00:00 Response: No adverse reaction; Pain is decreased; RASS: Alert and Calm (0) jb4 jb4
--- NOTE | 2020-07-30 02:06 | EDPHYS ---
Physician Documentation [facility] Name: Onel Mancuso Age: 60 yrs Sex: Male : 1960 Arrival Date: 07/29/2020 Time: 21:59 Bed 13 Private MD: ED Physician Adria Torres HPI: 07/30 00:29 This 60 yrs old Male presents to ER via Ambulatory with complaints of LOWER tw4 ABDOMINAL PAIN, ABDOMINAL SWELLING. 00:29 The patient presents with abdominal pain. The patient presents with abdominal pain in tw4 the periumbilical area. that is diffuse. Onset: The symptoms/episode began/occurred today. The symptoms do not radiate. Associated signs and symptoms: none. The symptoms are described as dull. Modifying factors: The symptoms are alleviated by nothing, the symptoms are aggravated by nothing. 00:29 The patient has experienced similar episodes in the past, chronically. The patient has tw4 been recently seen at the [facility] Emergency Department, a couple of weeks ago, for similar complaints. Historical: - Allergies: 07/29 22:07 No Known Allergies; ll1 - PMHx: 22:07 Cirrhosis; Hepatitis; Hypertension; ll1 - PSHx: 22:07 abdominal surgery x 3; right femur; neck; back; foot; Bowel resection; ll1 - Immunization history:: Flu vaccine is not up to date. - Social history:: Smoking status: Patient reports the use of cigarette tobacco products, smokes one pack cigarettes per day. ROS: 07/30 00:29 Constitutional: Negative for fever, chills, and weight loss, Eyes: Negative for injury, tw4 pain, redness, and discharge, Cardiovascular: Negative for chest pain, palpitations, and edema, Respiratory: Negative for shortness of breath, cough, wheezing, and pleuritic chest pain, Back: Negative for injury and pain, MS/Extremity: Negative for injury and deformity, Skin: Negative for injury, rash, and discoloration, Neuro: Negative for headache, weakness, numbness, tingling, and seizure. Abdomen/GI: Positive for abdominal pain, nausea. Exam: 00:32 Constitutional: This is a well developed, well nourished patient who is awake, alert, tw4 and in no acute distress. Head/Face: Normocephalic, atraumatic. Chest/axilla: Normal chest wall appearance and motion. Nontender with no deformity. No lesions are appreciated. Cardiovascular: Regular rate and rhythm with a normal S1 and S2. No gallops, murmurs, or rubs. Normal PMI, no JVD. No pulse deficits. Respiratory: Lungs have equal breath sounds bilaterally, clear to auscultation and percussion. No rales, rhonchi or wheezes noted. No increased work of breathing, no retractions or nasal flaring. Back: No spinal tenderness. No costovertebral tenderness. Full range of motion. Skin: Warm, dry with normal turgor. Normal color with no rashes, no lesions, and no evidence of cellulitis. MS/ Extremity: Pulses equal, no cyanosis. Neurovascular intact. Full, normal range of motion. Neuro: Awake and alert, GCS 15, oriented to person, place, time, and situation. Cranial nerves II-XII grossly intact. Motor strength 5/5 in all extremities. Sensory grossly intact. Cerebellar exam normal. Normal gait. 00:32 Abdomen/GI: Inspection: distension, that is severe, Bowel sounds: diminished, Palpation: moderate abdominal tenderness, in all quadrants. Vital Signs: 07/29 22:04 BP 144 / 88; Pulse 100; Resp 20; Temp 98.3; Pulse Ox 97% ; Pain 10/10; ll1 23:15 BP 163 / 83; Pulse 95; Resp 16; Pulse Ox 97% on R/A; jb4 07/30 00:00 BP 159 / 92; Pulse 96; Resp 16; Pulse Ox 97% on R/A; jb4 01:10 BP 167 / 72; Pulse 93; Resp 18; Pulse Ox 96% on R/A; jb4 02:15 BP 156 / 83; Pulse 90; Resp 18; Pulse Ox 98% on R/A; jb4 MDM: 07/29 22:40 Patient medically screened. tw4 07/30 00:32 Data reviewed: vital signs, nurses notes. Data interpreted: Pulse oximetry: tw4 Interpretation: normal. Counseling: I had a detailed discussion with the patient and/or guardian regarding: the historical points, exam findings, and any diagnostic results supporting the discharge/admit diagnosis. 07/29 22:44 Order name: Basic Metabolic Panel tw4 07/29 22:44 Order name: CBC with Diff tw4 07/29 22:44 Order name: Hepatic Function [facility] 07/29 22:44 Order name: Lipase [facility] 07/29 22:44 Order name: CT Abd/Pelvis - IV Contrast Only [facility] 07/29 23:47 Order name: CBC Smear Scan [facility] 07/29 22:44 Order name: IV Saline Lock; Complete Time: 23:22 [facility] 07/29 22:44 Order name: Labs collected and sent; Complete Time: : [facility] Administered Medications: 07/29 23:20 Drug: NS 0.9% 1000 ml Route: IV; Rate: 1 bolus; Site: right antecubital; [facility] 07/30 00:30 Follow up: Response: No adverse reaction; IV Status: Completed infusion; IV Intake: [facility] 1000ml 07/29 23:20 Drug: morphine 4 mg Route: IVP; Site: right antecubital; [facility] 07/30 00:00 Follow up: Response: No adverse reaction; Pain is decreased; RASS: Alert and Calm (0) [facility] 07/29 23:20 Drug: Zofran (Ondansetron) 4 mg Route: IVP; Site: right antecubital; [facility] 07/30 02:36 Follow up: Response: No adverse reaction [facility] 00:28 Drug: fentaNYL (PF) 25 mcg Route: IVP; Site: right forearm; [facility] 01:00 Follow up: Response: No adverse reaction; Pain is decreased; RASS: Alert and Calm (0) [facility] Disposition: 07/30/20 02:05 Discharged to Home. Impression: Ascites, Other cirrhosis of liver, Abdominal tenderness, chronic abdominal pain. - Condition is Stable. - Discharge Instructions: Abdominal Pain, Adult, [id number]. - Prescriptions for Bentyl 20 mg Oral Tablet - take 1 tablet by ORAL route every 6 hours As needed; 20 tablet. - Medication Reconciliation Form, Thank You Letter, Antibiotic Education, Prescription Opioid Use form. - Follow up: Private Physician; When: Upon discharge from the Emergency Department; Reason: Recheck today's complaints, Continuance of care, Re-evaluation by your physician. - Problem is an ongoing problem. - Symptoms have improved. Signatures: Dispatcher [employer] [facility] Hunter Mazariegos RN RN jb4 Adria Torres MD MD tw4 Brayden, Lynsay, RN RN ll1 Corrections: (The following items were deleted from the chart) 00:31 00:29 The patient has not experienced similar symptoms in the past, tw4 tw4 02:38 02:05 07/30/2020 02:05 Discharged to Home. Impression: Ascites; Other cirrhosis of jb4 liver; Abdominal tenderness; chronic abdominal pain. Condition is Stable. Forms are Medication Reconciliation Form, Thank You Letter, Antibiotic Education, Prescription Opioid Use. Follow up: Private Physician; When: Upon discharge from the Emergency Department; Reason: Recheck today's complaints, Continuance of care, Re-evaluation by your physician. Problem is an ongoing problem. Symptoms have improved. tw4
[2020-07-30 04:33] VITALS: TEMP 98.3
[2020-07-30 04:38] VITALS: BP 156/83; O2SAT 98
--- NOTE | 2020-07-30 13:38 | RAD REPORT ---
EXAM DESCRIPTION CT - Abdomen Pelvis W Contrast - 07/30/2020 6:34 am CLINICAL HISTORY: ABD PAIN TECHNIQUE: Contiguous axial images obtained through the abdomen and pelvis following the uneventful administration of IV contrast. Coronal and sagittal reformatted images were provided. This exam was performed according to our departmental dose-optimization program, which includes autom ated exposure control, adjustment of the mA and/or kV according to patient size and/or use of iterati ve reconstruction technique. COMPARISON: 07/18/2020 FINDINGS: Lung bases: Small right pleural effusion, new from the prior. Liver: The liver is enlarged with diffuse surface contour nodularity compatible with steatosis. Hepat ic parenchyma is heterogeneous as seen on the prior. Gallbladder and biliary system: Gallstones are present. Pancreas: Unremarkable Spleen: The spleen is enlarged measuring 18.3 cm in maximum craniocaudal dimension. Adrenals: Unremarkable Kidneys: Normal renal cortical enhancement. No calculi. No hydronephrosis. Bowel: Mid abdominal small bowel anastomosis. Proximal jejunal loops appear somewhat thickened. No ob struction. Appendix: Normal caliber appendix. No findings to suggest acute appendicitis. Urinary bladder: Unremarkable Reproductive: Unremarkable as visualized Lymph nodes: No pathologically enlarged lymph nodes. Peritoneum: Moderate amount of abdominal and pelvic ascites, progressed from the prior. The ascitic f luid appears partially loculated. No free air. Vessels: Mild atherosclerotic disease. No abdominal aortic aneurysm. Multiple abdominal varices. Abdominal wall: Diffuse body wall edema. Small bilateral fat-containing inguinal hernias. Bones: Multilevel spondylosis. No acute fracture. Remote left femoral intramedullary ana. Screw tract within the femoral head and neck. Surrounding heterotopic bone. IMPRESSION: 1. Hepatic cirrhosis and sequela of portal hypertension. Hepatic parenchyma is heterog eneous, similar to the prior. Underlying malignancy is not excluded. 2. Moderate amount of abdominal and pelvic ascites, progressed from the prior. The ascitic fluid ap pears partially loculated. Superimposed peritonitis is not excluded. 3. Proximal jejunal loops appear somewhat thickened. This may be related to degree of distention an d can also be seen in the setting of underlying liver disease. If clinical concern for this entity, m ild nonspecific enteritis may be considered. 4. Other findings as above. Electronically signed by: Marilyn Hensley MD 07/30/2020 1:18 AM [employer] Due to temporary technical issues with the PACS/Fluency reporting system, reports are being signed by the in house radiologists without review as a courtesy to insure prompt reporting. The interpreting radiologist is fully responsible for the content of the report.
== END 2020-07-30 02:38 | disposition home or self-care (01) ==
LOC: ER 21:58
DX: R18.8 Other ascites (principal); K74.69 Other cirrhosis of liver; G89.29 Other chronic pain; I10 Essential (primary) hypertension; F17.210 Nicotine dependence, cigarettes, uncomplicated
CPT/HCPCS: 85025; 80048; 36415; 80076; 83690; 74177; Q9967; J3010; J7030; J2405; 99284